=== PATIENT | female | born 1945 | race Caucasian/White ===

== ENCOUNTER 2016-08-10 21:55 | Emergency (ER) | payer OTHER, MEDICARE ==
[~2016-08-10] VITALS: Ht 154.9 cm; Wt 53.2 kg
[2016-08-10 22:05] VITALS: Ht 154.9 cm; Wt 53.2 kg
[2016-08-10] MEDS ORDERED: MoRPHine SULFATE 4 MG/ML 1 ML CARP\\VIAL IV STA (22:09)
[2016-08-10 22:14] VITALS: O2SAT 86
--- NOTE | 2016-08-10 22:40 | DIAGNOSTIC IMAGING REPORT ---
CHEST ONE VIEW PORTABLE CLINICAL HISTORY: Chest pain. Fever. Sepsis. COMPARISON STUDY: No previous studies for comparison. FINDINGS: A thoracolumbar spine fusion is partially imaged. Lung volumes are normal. There is no consolidation or evidence of pulmonary edema. Cardiomediastinal silhouette is unremarkable. No pneumothorax or pleural effusion is identified. IMPRESSION: No acute cardiopulmonary findings. Electronically signed by: Nitish Singleton M.D. 08/10/2016 10:39 PM Dictated Date/Time: 08/10/2016 10:38 PM
[2016-08-10 22:45] LABS: BASO % 0.4 %; BASO ABS # 0.03 K/uL (0-0.2); COMPLETE YES; EOS % 1.5 %; HEMATOCRIT 46.7 % (37-47); IG% 0.3 %; LYMPH % 16.7 %; LYMPH ABS # 1.26 K/uL (1.2-3.4); MEAN CELL VOLUME 93.8 fL (80-100); MEAN CORPUSCULAR HEMOGLOBIN 32.3 pg (25-34); MEAN CORPUSCULAR HGB CONC 34.5 g/dl (32-36); MEAN PLATELET VOLUME 11.4 fL (7.4-10.4); MONO % 6.5 %; NEUT % 74.6 %; PLATELET COUNT 219 K/uL (130-400); RED BLOOD COUNT 4.98 M/uL (4.2-5.4); WHITE BLOOD COUNT 7.53 K/uL (4.8-10.8)
[2016-08-10 22:55] LABS: INR 0.9 (0.9-1.1); PARTIAL THROMBOPLASTIN RATIO 1.1
[2016-08-10 23:08] LABS: ALT/SGPT 11 U/L (12-78); AST/SGOT 9 U/L (15-37); BLOOD UREA NITROGEN 16 mg/dl (7-18); CALCIUM 9.7 mg/dl (8.5-10.1); CARBON DIOXIDE 33 mmol/L (21-32); CHLORIDE 108 mmol/L (98-107); CREATININE 0.73 mg/dl (0.60-1.20); GLUCOSE 92 mg/dl (70-99); POTASSIUM 3.2 mmol/L (3.5-5.1); SODIUM 149 mmol/L (136-145)
[2016-08-10 23:13] LABS: ALKALINE PHOSPHATASE 68 U/L (45-117); CKMB/CK RATIO 2.1 (0-3.0)
[2016-08-10] MEDS ORDERED: LACT10SO17 PO (23:39)
[2016-08-10] MEDS ORDERED: GABA-113 PO ×2 (23:41)
[2016-08-10] MEDS ORDERED: TRAM-10 PO (23:41)
--- NOTE | 2016-08-11 01:10 | EMERGENCY ROOM VISIT NOTE ---
History Report prepared by Dawit: Param Oliva Under the Supervision of: Dr. Joseph Orourke D.O. First contact with patient: 22:04 Chief Complaint: CHEST PAIN Stated Complaint: CHEST PAIN History of Present Illness The patient is a 70 year old female who presents to the Emergency Room by EMS with complaints of an episode of chest pain beginning about 2 hours ago. She received 2 nitroglycerin, 324 mg of Aspirin, and Zofran en route, and rates her pain a 5/10 in severity. She notes she was lying down and resting when her pain began. She also noticed shortness of breath and increased heart rate. The patient took her blood pressure and it was 146/120 which is high for her. She has been having intermittent pains like this for 1.5 weeks. She reports a history of mitral valve prolapse, and back pain. She takes Tramadol and Gabapentin for her back pain. The patient denies using supplemental oxygen. She admits to smoking. Source of History: patient, nursing staff Onset: about 2 hours ago Position: chest Symptom Intensity: 5/10 Quality: other (chest pain) Timing: other (episode) Associated Symptoms: + SOB Note: The patient notes having an increased heart rate. Review of Systems See HPI for pertinent positives & negatives. A total of 10 systems reviewed and were otherwise negative. Past Medical & Surgical Medical Problems: (1) History of back pain (2) History of mitral valve prolapse Family History No pertinent family history stated. Social History Smoking Status: Current Some Day Smoker Marital Status: Current/Historical Medications Scheduled Gabapentin (Neurontin), 300 MG PO TIDM Gabapentin (Neurontin), 600 MG PO HS Tramadol (Ultram), 50 MG PO QID Scheduled PRN Lactulose (Chronulac), 1 DOSE PO UD PRN for Constipation Allergies Coded Allergies: No Known Allergies (Unverified , 08/10/16) Physical Exam Vital Signs Date Time Temp Pulse Resp B/P Pulse Ox O2 Delivery O2 Flow Rate FiO2 08/11/16 00:50 83 14 95 08/11/16 00:46 148/79 08/11/16 00:45 81 92 08/11/16 00:35 81 14 97 08/11/16 00:30 80 17 138/81 08/11/16 00:25 80 12 99 08/11/16 00:20 81 12 98 08/11/16 00:15 81 14 98 4/4/17 00:10 80 15 98 08/11/16 00:05 81 13 98 08/11/16 00:00 82 18 141/80 08/10/16 23:55 80 14 98 08/10/16 23:50 85 17 98 08/10/16 23:45 84 14 98 08/10/16 23:40 85 14 98 08/10/16 23:35 85 13 98 08/10/16 23:30 83 13 138/83 08/10/16 23:25 86 13 98 08/10/16 23:20 87 20 98 08/10/16 23:15 83 15 98 08/10/16 23:10 86 15 98 08/10/16 23:05 86 16 159/86 98 08/10/16 23:05 85 12 98 08/10/16 23:02 159/86 08/10/16 23:00 84 13 159/86 98 08/10/16 22:55 85 12 98 08/10/16 22:50 86 15 98 08/10/16 22:45 86 31 97 08/10/16 22:40 91 16 96 08/10/16 22:35 93 21 97 08/10/16 22:30 92 19 149/92 96 08/10/16 22:25 92 27 97 08/10/16 22:20 88 18 97 08/10/16 22:17 36.9 08/10/16 22:15 101 21 87 08/10/16 22:14 86 Room Air 08/10/16 22:10 93 20 91 08/10/16 22:09 90 Room Air 08/10/16 22:08 97 08/10/16 22:05 98 18 153/91 90 Room Air 08/10/16 22:05 90 Room Air 08/10/16 22:04 153/91 Physical Exam CONSTITUTIONAL/VITAL SIGNS: Reviewed / noted above. GENERAL: Non-toxic in appearance. INTEGUMENTARY: Warm, dry, and [place]. HEAD: Normocephalic. EYES: without scleral icterus or trauma. ENT/OROPHARYNX: clear and moist. LYMPHADENOPATHY/NECK: Is supple without lymphadenopathy or meningismus. RESPIRATORY: Lungs clear and equal. CARDIOVASCULAR: Regular rate and rhythm. GI/ABDOMEN: Soft and nontender. No organomegaly or pulsatile mass. No rebound or guarding. Normal bowel sounds. EXTREMITIES: Warm and well perfused. BACK: No CVA tenderness. NEUROLOGICAL: Intact without focal deficits. PSYCHIATRIC: normal affect. MUSCULOSKELETAL: Normally developed with good muscle tone. Medical Decision & Procedures ER Provider Diagnostic Interpretation: Radiology results as stated below per my review and radiologist interpretation: CHEST ONE VIEW PORTABLE FINDINGS: A thoracolumbar spine fusion is partially imaged. Lung volumes are normal. There is no consolidation or evidence of pulmonary edema. Cardiomediastinal silhouette is unremarkable. No pneumothorax or pleural effusion is identified. IMPRESSION: No acute cardiopulmonary findings. Electronically signed by: Nitish Singleton M.D. 08/10/2016 10:39 PM Dictated Date/Time: 08/10/2016 10:38 PM Laboratory Results 08/10/16 21:38 Red Blood Count 4.98, Mean Corpuscular Volume 93.8, Mean Corpuscular Hemoglobin 32.3, Mean Corpuscular Hemoglobin Concent 34.5, Mean Platelet Volume 11.4, Neutrophils (%) (Auto) 74.6, Lymphocytes (%) (Auto) 16.7, Monocytes (%) (Auto) 6.5, Eosinophils (%) (Auto) 1.5, Basophils (%) (Auto) 0.4, Neutrophils # (Auto) 5.62, Lymphocytes # (Auto) 1.26, Monocytes # (Auto) 0.49, Eosinophils # (Auto) 0.11, Basophils # (Auto) 0.03 08/10/16 21:38 Test 08/10/16 21:38 White Blood Count 7.53 K/uL (4.8-10.8) Red Blood Count 4.98 M/uL (4.2-5.4) Hemoglobin 16.1 g/dL (12.0-16.0) Hematocrit 46.7 % (37-47) Mean Corpuscular Volume 93.8 fL (80-100) Mean Corpuscular Hemoglobin 32.3 pg (25-34) Mean Corpuscular Hemoglobin Concent 34.5 g/dl (32-36) Platelet Count 219 K/uL (130-400) Mean Platelet Volume 11.4 fL (7.4-10.4) Neutrophils (%) (Auto) 74.6 % Lymphocytes (%) (Auto) 16.7 % Monocytes (%) (Auto) 6.5 % Eosinophils (%) (Auto) 1.5 % Basophils (%) (Auto) 0.4 % Neutrophils # (Auto) 5.62 K/uL (1.4-6.5) Lymphocytes # (Auto) 1.26 K/uL (1.2-3.4) Monocytes # (Auto) 0.49 K/uL (0.11-0.59) Eosinophils # (Auto) 0.11 K/uL (0-0.5) Basophils # (Auto) 0.03 K/uL (0-0.2) RDW Standard Deviation 48.0 fL (36.4-46.3) RDW Coefficient of Variation 14.0 % (11.5-14.5) Immature Granulocyte % (Auto) 0.3 % Immature Granulocyte # (Auto) 0.02 K/uL (0.00-0.02) Prothrombin Time 10.0 SECONDS (9.0-12.0) Prothromb Time International Ratio 0.9 (0.9-1.1) Activated Partial Thromboplast Time 28.0 SECONDS (21.0-31.0) Partial Thromboplastin Ratio 1.1 Anion Gap 8.0 mmol/L (3-11) Est Creatinine Clear Calc Drug Dose 53.3 ml/min Estimated GFR () 96.0 Estimated GFR (Non- 82.9 BUN/Creatinine Ratio 22.0 (10-20) Calcium Level 9.7 mg/dl (8.5-10.1) Total Bilirubin 0.2 mg/dl (0.2-1) Direct Bilirubin < 0.1 mg/dl (0-0.2) Aspartate Amino Transf (AST/SGOT) 9 U/L (15-37) Alanine Aminotransferase (ALT/SGPT) 11 U/L (12-78) Alkaline Phosphatase 68 U/L (45-117) Total Creatine Kinase 28 U/L (26-192) Creatine Kinase MB 0.6 ng/ml (0.5-3.6) Creatine Kinase MB Ratio 2.1 (0-3.0) Troponin I < 0.015 ng/ml (0-0.045) Total Protein 6.6 gm/dl (6.4-8.2) Albumin 3.6 gm/dl (3.4-5.0) Lipase 76 U/L (73-393) Laboratory results as stated above per my review. Medications Administered Medications (Trade) Dose Ordered Sig/Renetta Route Start Time Stop Time Status Last Admin Dose Admin Morphine Sulfate (MoRPHine SULFATE INJ) 4 mg NOW STAT IV 08/10/16 22:09 08/10/16 22:10 DC 08/10/16 22:27 4 MG ECG Indication: chest pain Rate (beats per minute): 94 Rhythm: normal sinus Findings: no acute ischemic change, no ectopy ED Course 2204: Previous medical records were reviewed. The patient was evaluated in room A4B. A complete history and physical examination was performed. 2208: Ordered Morphine Sulfate 4 mg IV. 104: On reevaluation, the patient is doing well. I discussed the results and findings with the patient. She verbalized agreement of the treatment plan. The patient was discharged home. Medical Decision the differential was considered includes acute myocardial infarction, acute coronary syndrome, myocarditis, pericarditis, pericardial effusions /tamponad, esophageal perforation, thoracic aortic dissection, pulmonary embolism, pneumonia, pneumothorax, pancreatitis, shingles, acute cholecystitis, perforated abdominal viscus. This is a 70-year-old female who presents to the ED with a chief complaint of chest pain. The patient states that she was resting and began feeling her heart pounding. She states that her symptoms started around 8 PM. She states that she checked her blood pressure was elevated. It was 146/120. He feels the symptoms she came to the ED for evaluation. She was not having symptoms on the initial evaluation. During her stay, she did develop a recurrence of the symptoms and had a repeat EKG. Her initial EKG shows sinus rhythm at a rate of 76 without acute injury or ectopy. A second EKG did not show any change. CBC was normal. Complete metabolic panel was unremarkable. A troponin is negative. Chest x-ray is negative for acute disease. The patient was told results the test. She feels comfortable going home. She was treated with IV morphine. She was advised to return for any recurrence or worsening symptoms. She is otherwise follow-up with her PCP. Impression Primary Impression: Substernal precordial chest pain Scribe Attestation The scribe's documentation has been prepared under my direction and personally reviewed by me in its entirety. I confirm that the note above accurately reflects all work, treatment, procedures, and medical decision making performed by me. Departure Information Dispostion Home / Self-Care Referrals No Doctor, Assigned (PCP) Patient Instructions Chest Pain - [facility], [facility], Later [facility] Additional Instructions Follow-up with your doctor for further care and evaluation in 1-2 days. Return to the emergency department for worsening or new symptoms or any concerns. You have been examined and treated today on an emergency basis only. This is not a substitute for, or an effort to provide, complete comprehensive medical care. It is impossible to recognize and treat all injuries or illnesses in a single emergency department visit. It is therefore important that you follow up closely with your doctor. Call as soon as possible for an appointment. Testing today has no productive value. Should you have any recurrence or worsening of symptoms, return for further evaluation.
[2016-08-11 01:13] VITALS: BP 148/79; PULSE 83; TEMP 36.9; O2SAT 95
== END 2016-08-11 01:15 | disposition home or self-care (01) ==
LOC: C.EDA 21:58
DX: R07.2 Precordial pain (principal); I34.1 Nonrheumatic mitral (valve) prolapse; F17.210 Nicotine dependence, cigarettes, uncomplicated; Z79.899 Other long term (current) drug therapy

== ENCOUNTER 2020-03-19 11:20 | Observation (INO) ==
--- NOTE | 2020-03-15 11:55 | History & Physical Report ---
Date of Service March 15, 2020 Assessment & Plan (1) H/O spinal fusion: (2) Chronic radicular lumbar pain: (3) Postlaminectomy syndrome of lumbosacral region: (4) Postlaminectomy syndrome of thoracic region: (5) Encounter for pre-operative examination: Patient has failed conservative treatments so an intrathecal hydromorphone trial was performed. Patient did report significant pain relief for the first 24 hours after the trial. She was able to walk longer distances and stand for longer periods of time. As the patient did receive adequate pain relief from the trial she has been offered the implantation of an intrathecal pump and catheter delivery system. Patient would like to proceed with implantation. Procedure will be scheduled for 03/19/2020. History of Present Illness Chief Complaint: Intractable back pain Primary Care Provider: Casey Rodgers Mrs. Campos is a 74-year-old female with history of chronic intractable thoracolumbar back pain and right lower extremity weakness and pain. Patient has had multiple thoracolumbar surgeries, most recently revision of T4-S1 posterior spinal fusion for correction of scoliosis in 1996. Pain is predominantly located in the thoracolumbar junction right greater than left- sided as well as right L5 radicular symptoms into the right leg to the foot. Pain is ranging from 5-10/10. 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 Sitting in a recliner and laying supine does provide mild pain relief. Patient does report significant limitation to performing her daily activities due to the pain. She has previously failed conservative treatments. Currently she is receiving hydrocodone 10/325 4 times daily with very little pain relief. She denies any bowel/bladder incontinence, saddle anesthesia, foot drop, falls. Allergies Allergy/AdvReac Type Severity Reaction Status Date / Time hydrochlorothiazide Allergy Intermediate pancreatiti Verified 03/15/20 10:31 s fluconazole [From Diflucan] AdvReac Severe PO only Verified 03/15/20 10:31 gave diarrhea ondansetron [From Zofran] AdvReac Intermediate headaches Verified 03/15/20 10:31 Home Medications Home Medications Medication Instructions Recorded Confirmed Type evdzrga-hpxprzloktwph-jcnzndxl 250 1 tab PO Q6H PRN 01/10/20 03/15/20 History mg-250 mg-65 mg tablet rfohuzlhoh-stzcqionrvcpp-wfugxjzy 1 tab PO Q6H PRN 01/10/20 03/15/20 History 50 mg-325 mg-40 mg tablet calcium carbonate 600 mg calcium 600 mg PO QAM 01/10/20 03/15/20 History (1,500 mg) tablet famotidine 20 mg tablet 20 mg PO QAM PRN 01/10/20 03/15/20 History gabapentin 600 mg tablet 600 mg PO QID tab 01/10/20 03/15/20 History hydrocodone 10 mg-acetaminophen 1 tab PO Q6H PRN 01/10/20 03/15/20 History 300 mg tablet meclizine 25 mg tablet 25 mg PO DAILY PRN 01/10/20 03/15/20 History promethazine 25 mg tablet 25 mg PO Q6H PRN 01/10/20 03/15/20 History multivitamin 1 tab PO DAILY 02/05/20 03/15/20 History galcanezumab-gnlm 120 mg/mL 120 mg SUBCUT UD 03/13/20 03/15/20 History subcutaneous pen injector naratriptan 1 mg tablet 1 mg PO Q4H PRN 03/13/20 03/15/20 History pantoprazole [Protonix] 40 mg PO BID 03/15/20 03/15/20 History Past Med/Surg History Medical History Chronic radicular lumbar pain Gastric ulcer GERD (gastroesophageal reflux disease) Hiatal hernia History of blood transfusion Pt reports post-op after hip surgery and lumbar surgery History of syncope Previously followed with cardiology, per Dr Lockhart ([facility]), "syncope in the setting of polypharmacy for severe low back pain." Last seen by cardio 11/2018, to follow up PRN. Migraine Pancreatitis ~August 2017 Postlaminectomy syndrome of lumbosacral region Postlaminectomy syndrome of thoracic region Surgical History H/O spinal fusion Extensive [id number] (x2 lumbar fusions) History of anesthesia reaction "severe hypotension" per patient following second back surgery. ([facility] 2017). Review of records shows documentation from anesthesia that hypotension was treated in PACU, BP in post-anesthetic evaluation 92/51. History of appendectomy History of cardiac cath ~1994. no stents. History of cataract surgery bilateral History of cholecystectomy History of colonoscopy History of dilatation and curettage History of esophagogastroduodenoscopy (EGD) History of open reduction and internal fixation (ORIF) procedure left hip x2 S/P hardware removal left hip x2 S/P CECILIA-BSO Family History Other No family history of adverse response to anesthesia Social History Smoking Status: Current every day smoker packs per day: 0.5; Years Smoked: 60; Cigarettes Per Day: 10; Second Hand Exposure: Yes; Do You Dip or Chew Tobacco: No; Tobacco Cessation Education Requested by Patient: No Hx Alcohol Use: No Hx Substance Use: No Preferred Language: Maori Communication Ability: Effective Visual Impairment: No Limitations Hearing Ability: Normal 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 Speech and cognition is intact. Mood and affect is appropriate. In no acute distress. HEAD: Normocephalic; atraumatic. EYES: No conjunctival injection. EOM intact. CARDIO: Regular rate and rhythm. No murmurs, rubs, or gallops. PULM: Clear to auscultation. No wheezes, rales, or rhonchi. CHEST: Regular chest respiration and excursion. ABDOMEN: Nondistended. EXTREMITIES: Positive straight leg raise on the right, negative on the left. 4/5 strength of the right lower extremity. 5/5 strength of the left lower extremity. BACK: Large well-healed surgical incision from the mid thoracic to the lumbosacral junction. Tenderness along the entire thoracolumbar region. Minimal range of motion in all planes. NEURO: CN II-XII grossly intact with no focal deficits noted. Normal gait. Patellar Reflex L +1 R +1 Achilles Reflex L +1 R +1 SKIN: No lesions, erythema, or rashes noted.
--- NOTE | 2020-03-15 12:02 | Anesthesiology Consultation ---
Date of Service March 15, 2020 Assessment & Plan (1) Encounter for pre-operative examination: Chart Review Chart Review: Acceptable Risk for Surgery and Patient NOT seen in Pre Admission Testing Per nursing assessment 03/15/2020, patient denies any recent travel. No known Covid positive contacts or Covid related symptoms. Covid test 03/13/2020 = negative. Intrathecal opiate trial for intrathecal pump 02/20/2020. History Surgery Operation Date: 03/19/20 13:20 Proposed Procedures p Intrathecal Pain Pump - Wilbertl Lima MD, FIPP Height/Weight Height: 5 ft 1 in Weight: 46.72 kg Allergies Allergy/AdvReac Type Severity Reaction Status Date / Time hydrochlorothiazide Allergy Intermediate pancreatiti Verified 03/15/20 10:31 s fluconazole [From Diflucan] AdvReac Severe PO only Verified 03/15/20 10:31 gave diarrhea ondansetron [From Zofran] AdvReac Intermediate headaches Verified 03/15/20 10:31 Medications Home Medications Medication Instructions Recorded Confirmed Last Taken qauppxe-ixynwfgfaesaz-bpotundj 250 1 tab PO Q6H PRN 01/10/20 03/15/20 Unknown mg-250 mg-65 mg tablet wnoullebbh-wmimvfeateazu-xdzjzvab 1 tab PO Q6H PRN 01/10/20 03/15/20 02/06/20 50 mg-325 mg-40 mg tablet calcium carbonate 600 mg calcium 600 mg PO QAM 01/10/20 03/15/20 02/19/20 08:00 (1,500 mg) tablet famotidine 20 mg tablet 20 mg PO QAM PRN 01/10/20 03/15/20 02/19/20 08:00 gabapentin 600 mg tablet 600 mg PO QID tab 01/10/20 03/15/20 02/19/20 18:00 hydrocodone 10 mg-acetaminophen 1 tab PO Q6H PRN 01/10/20 03/15/20 02/19/20 17:00 300 mg tablet meclizine 25 mg tablet 25 mg PO DAILY PRN 01/10/20 03/15/20 Unknown promethazine 25 mg tablet 25 mg PO Q6H PRN 01/10/20 03/15/20 Unknown multivitamin 1 tab PO DAILY 02/05/20 03/15/20 02/19/20 08:00 galcanezumab-gnlm 120 mg/mL 120 mg SUBCUT UD 03/13/20 03/15/20 Unknown subcutaneous pen injector naratriptan 1 mg tablet 1 mg PO Q4H PRN 03/13/20 03/15/20 Unknown pantoprazole [Protonix] 40 mg PO BID 03/15/20 03/15/20 Unknown Past Medical History Medical History Chronic radicular lumbar pain Gastric ulcer GERD (gastroesophageal reflux disease) Hiatal hernia History of blood transfusion Pt reports post-op after hip surgery and lumbar surgery History of syncope Previously followed with cardiology, per Dr Lockhart ([facility]), "syncope in the setting of polypharmacy for severe low back pain." Last seen by cardio 11/2018, to follow up PRN. Migraine Pancreatitis ~August 2017 Postlaminectomy syndrome of lumbosacral region Postlaminectomy syndrome of thoracic region Past Family History Family History Other No family history of adverse response to anesthesia Past Surgical History Surgical History H/O spinal fusion Extensive [id number]-[id number] (x2 lumbar fusions) History of anesthesia reaction "severe hypotension" per patient following second back surgery. ([facility] 2017). Review of records shows documentation from anesthesia that hypotension was treated in PACU, BP in post-anesthetic evaluation 92/51. History of appendectomy History of cardiac cath ~1994. no stents. History of cataract surgery bilateral History of cholecystectomy History of colonoscopy History of dilatation and curettage History of esophagogastroduodenoscopy (EGD) History of open reduction and internal fixation (ORIF) procedure left hip x2 S/P hardware removal left hip x2 S/P CECILIA-BSO Social History Smoking Status: Current every day smoker tobacco type: cigarettes Smoking cigarettes per day: 10 Do You Dip or Chew Tobacco: No Hx Alcohol Use: No Hx Substance Use: No substance use type: marijuana Last Used Substance Other:: 02/04/20 Testing Laboratory Results Laboratory Tests 02/07/20 02/07/20 11:10 11:10 WBC 7.96 Hgb 13.9 Hct 42.7 Plt Count 197 Sodium 144 Potassium 3.2 L Chloride 112 H Carbon Dioxide 28 BUN 27 H Creatinine 0.62 Glucose 81 Electrocardiogram Date: 02/07/20 Findings: + SB @ (55bpm) Otherwise normal EKG. Chest X-Ray Date: 08/31/19 Findings: + NAD Post fusion changes of mid to upper visualized lumbar spine. Anterior wedge compression deformity of mid thoracic vertebral body just above the fusion. Echocardiogram Date: 03/20/16 EF: 55-60% LV Function: normal RWMA: + none Other Findings: + LVH (mild concentric) and + diastolic dysfunction (grade 1) Valvular Disease: + MR (mild) Mild TR. Stress Test Date: 10/04/14 Type: DSE Resting EF: 55-59% Resting LV Function: normal Resting RWMA: + none Stress echo was negative for inducible ischemia. Stress EKG response showed no evidence of ischemia. Mild MR. Mild TR. No evidence of pulmonary hypertension.
[~2020-03-19 11:20] MED LIST: LR 15ML/HR IV SCH; ceFAZolin 2000MG 2,000 MG/15 ML SYR IV SCH
--- NOTE | 2020-03-19 12:01 | History & Physical Bridge Note ---
Date of Service March 19, 2020 History & Physical Bridge Note History & Physical Bridge Note Mrs. Campos is a 74-year-old white female who presents for evaluation of chronic thoracolumbar back pain and right lower extremity pain with weakness. Patient has history of multiple thoracolumbar spine surgeries most recently undergoing a revision with a T4-S1 posterior spinal fusion with correction of scoliosis per Dr. Krause at [facility] in [place] [address]. She underwent reevaluation in 2018- timeframe without recommendation for any further surgical intervention. The patient has had ongoing chronic thoracolumbar back pain right greater left-sided as her predominant pain generator followed by pain in the right lower extremity traveling in an L5 distribution to the foot. She rates her pain at a 3-10/10. Her pain is burning, sharp and stabbing in the axial thoracolumbar spine. Symptoms are exacerbated with prolonged standing, bending over and household activities. Her symptoms are somewhat improved by lying supine in her bed or in her recliner. She spends majority of her days in these positions due to her pain and discomfort. Patient has previously been treated with physical therapy, acupuncture, SI joint injections, epidural steroid injections, massage therapy, prior surgery, duloxetine, gabapentin, opiates and spinal cord stimulator trial. She reported increased pain during her spinal cord stimulator trial and therefore implantation was not recommended. She did undergo psychological evaluation and was under the care of psychiatry for 6 months after the spinal cord stimulator trial. She is planning to resume behavioral health due to some increased depressive symptoms over the past few months. Patient indicates minimal benefit from ongoing use of hydrocodone/acetaminophen 4 times daily. She denies side effects from prior opiate utilization other than intermittent constipation. The patient describe some chronic weakness of the right lower extremity but denies foot drop or falling. She denies bowel or bladder incontinence or saddle anesthesias. She denies left lower extremity radicular pain. She has previously utilized medical marijuana with minimal improvement in complaints. She underwent intrathecal hydromorphone trail successfully with good efficacy and is requesting to proceed implantation of intrathecal drug movement system to address her chronic pain from postlaminectomy syndrome. RECOMMENDATIONS: Proceed with intrathecal medication delivery system. History reviewed, examination performed, pertinent laboratory and imaging studies reviewed. No contraindications noted to proceeding with the proposed procedure. Potential risks including infection, bleeding, hematoma or seroma formation at the wound sites, nerve injury, injury to the spinal cord, dural puncture with persistant csf leak, malfunction of the pump, breakage and migration of the catheter, additional surgical procedures to correct these complications as well as persistent symptoms after the procedure and risks associated with anesthesia. Patient was also informed that the pump will require routine refills on an ongoing basis. Alternative treatments were also discussed. Patient's questions were answered and gives informed consent to proceed with the proposed procedure. In addition, the risks and benefits of proposed procedure, possibly risks of being exposed to COVID-19 during current pandemic were discussed. The patient understands that self-isolation/quarantining for the next 2 weeks is preferred to minimize exposure to COVID-19. However, if unable to self-isolate, it is recommend the patient wear a mask, maintain 6 feet distancing, performs frequent hand washing and follow CDC recommendations when out in public. The patient accepts the risks and agrees to proceed. I have examined the patient, reviewed the History & Physical and in the interval since the performance of the History & Physical I have noted the following changes of clinical significance: no changes noted
[2020-03-19] MEDS ORDERED: ceFAZolin 1000MG 1,000 MG/7.5 ML SYR IV ONE (12:39)
--- NOTE | 2020-03-19 12:44 | History & Physical Bridge Note ---
Date of Service March 19, 2020 History & Physical Bridge Note I have examined the patient, reviewed the History & Physical and in the interval since the performance of the History & Physical I have noted the following changes of clinical significance: no changes noted pt accepts all r/b associated with implantation including infection possibily leading to need for explant. Consent signed
[2020-03-19] MEDS ORDERED: BUPIVACAINE 0.5 % 5 MG/1 ML PF 10ML VIAL ONE (12:47)
[2020-03-19] MEDS ORDERED: PHENYLEPHRINE 100MCG/ML 5ML SYR IV PRN (13:10)
[2020-03-19] MEDS ORDERED: ePHEDrine sulfate 50 MG/ML AMP IV PRN (13:10)
[2020-03-19] MEDS ORDERED: ATROPINE SULFATE 0.1 MG/ML 10ML SYR IV PRN (13:10)
[2020-03-19] MEDS ORDERED: ONDANSETRON INJ 2 MG/ML 2 ML VIAL IV PRN (13:10)
[2020-03-19] MEDS ORDERED: LABETALOL HCL IV 5 MG/ML 20ML IV PRN (13:10)
[2020-03-19] MEDS ORDERED: MEPERIDINE HCL 25 MG/ML CARP/VIAL IV PRN (13:10)
[2020-03-19] MEDS ORDERED: HYDROmorphone INJ 1 MG/ML SYRINGE IV PRN (13:10)
[2020-03-19] MEDS ORDERED: LIDOCAINE/EPINE 2% 1:100,000 20ML ONE (13:14)
[2020-03-19] MEDS ORDERED: IOPAMIDOL INJ 61% 15 ML VIAL ONE (13:14)
[2020-03-19] MEDS ORDERED: fentaNYL citrate 100 MCG/2 ML VIAL ONE ×2 (13:18→13:23)
[2020-03-19] MEDS ORDERED: MIDAZOLAM HCL 1 MG/ML 2ML VIAL ONE (13:23)
[2020-03-19] MEDS ORDERED: DEXAMETHASONE SOD INJ 4 MG/ML VIAL ONE (13:23)
[2020-03-19] MEDS ORDERED: ONDANSETRON INJ 2 MG/ML 2 ML VIAL ONE (13:23)
[2020-03-19] MEDS ORDERED: PROPOFOL IV EMULSION 10 MG/ML 20 ML VIAL IV ONE (13:23)
[2020-03-19] MEDS ORDERED: LIDOCAINE HCL 2% 2 ML VIAL/AMP(20MG/ML) INFIL ONE (13:23)
[2020-03-19] MEDS ORDERED: NEOSTIGMINE METHYLSULFATE 5 MG/5 ML SYR ONE (13:23)
[2020-03-19] MEDS ORDERED: GLYCOPYRROLATE 0.2 MG/ML VIAL ONE (13:23)
[2020-03-19] MEDS ORDERED: SUCCINYLCHOLINE CHLORIDE 20 MG/ML 10 ML VIAL IV ONE (14:06)
[2020-03-19] MEDS ORDERED: diphenhydrAMINE Capsule 25 MG CAP PO PRN (15:38)
[2020-03-19] MEDS ORDERED: NALOXONE HCL 0.4 MG/1 ML VIAL/CARP IV PRN (15:38)
[2020-03-19] MEDS ORDERED: MAGNESIUM CITRATE 296 ML/BTL PO PRN (15:38)
[2020-03-19] MEDS ORDERED: HYDROCODONE/ACETAMOPHEN 5/325MG TAB PO PRN (15:38)
--- NOTE | 2020-03-19 15:38 | Operative Report ---
Post Operative Report Pre & Post Diagnosis Operation Date: 03/19/20 13:20 Pre-Op Diagnosis: Postlaminectomy syndrome of lumbosacral region,Postlaminectomy syndrome of thoracic region Post-Op Diagnosis: Postlaminectomy syndrome of lumbosacral region,Postlaminectomy syndrome of thoracic region I identified the patient and participated in the time-out.: Yes Procedure Operation Date: 03/19/20 13:20 Actual Procedures Implantation of intrathecal catheter and drug delivery system. Wilber Lima MD, JAMES Surgeon Wilber Lima MD, JAMES Raised Printer Dr. Delmy Suazo Estimated Blood Loss 35 Findings Consistent with Post-Op Diagnosis Specimens None Drains None Anesthesia Type General Disposition Accompanied Patient To Recovery: No Disposition: Recovery Room Description of Procedure INTRATHECAL DRUG DELIVERY SYSTEM IMPLANTATION OPERATIVE REPORT PREOPERATIVE DIAGNOSIS: Intractable pain secondary to lumbar post laminectomy syndrome. POSTOPERATIVE DIAGNOSIS: Same. PROCEDURE: 1. Insertion of intrathecal catheter under fluoroscopic guidance. 2. Implantation of intrathecal pump. 3. Intrathecal pump refill. 4. Postoperative reprogramming of intrathecal drug delivery system pump. INDICATIONS: COMPLICATIONS: None ANESTHESIA: General. DESCRIPTION OF PROCEDURE: The patient had a successful intrathecal trial and agreed to intrathecal pump insertion. Prior to starting, the Patients diagnosis and the procedure were reviewed with the patient in detail. Possible risks and complications including infection, bleeding, damage to surrounding structures and increased pain were discussed. Alternative therapies were also reviewed. Patients questions were answered and they agreed to proceed. Informed consent was obtained. Allergies and medication list was reviewed. Biplanar fluoroscopy was used to assist in placement of the needle as well as to evaluate the final needle and catheter positions. The patient was brought to the operating room and general anesthesia was induced by members of the department. Patient was then placed in right lateral decubitus position. Immediately prior to starting the procedure, a ``time out was conducted with the staff where the patient was identified, proposed procedure was verified, consent was reviewed and the proper site for the planned procedure was identified. Preoperative antibiotics for prophylaxis were given through the IV. On examination, no signs of skin breakdown or infection were noted at the injection site. The site was cleansed with DuraPrep followed by Betadine. Sterile drapes were applied in the usual fashion. Using biplanar fluoroscopy an 18-gauge spinal needle was used to gain access to the intrathecal sac at L2/L3 interspace. Clear free cerebral spinal fluid flow was noted without any blood. Medtronic intrathecal catheter was passed through the needle under fluoroscopic guidance and the tip was positioned at superior edge of T9 vertebral body. Stylet was removed and free CSF flow was aspirated. Using a scalpel, 1-1/2 inch midline incision was made surrounding the intrathecal needle. Hemostasis was achieved using electro cautery. The epidural catheter was secured to the dorso-lumbar fascia with 2 purse string 0-0 silk ties. Then the spinal needle was removed and a [employer] butterfly anchor to secure the catheter to the underlying supraspinous ligament was utilized to secure the catheter. Free CSF flow from the intrathecal catheter after anchoring of the catheter to the fascia. Then in the left lower quadrant a pocket for the intrathecal pump was made using scalpel to skin incision and electro cautery for the deeper layers. A passer was used to transfer the intrathecal pump catheter underneath the skin and subcutaneous tissues through to the pocket incision. After transfer of the end of the catheter to the pocket incision aspiration of the intrathecal catheter revealed free CSF flow. Both pocket and midline axial thoracic incisions were irrigated with 3 bulb syringes full of sterile normal saline with Betadine. Hemostasis was achieved. The intrathecal pump was filled was rinsed and filled with hydromorphone 1 mg/mL concentration per protocol. The intrathecal catheter was trimmed to a total length of 102 cm. The suture-less connector was connected to the end the intrathecal pump and aspiration from of the end of the catheter was free-flowing. It was then connected to the intrathecal pump using the connecting device. The intrathecal pump was anchored in the pocket with 4-0 Prolene sutures. No complications were noted after the intrathecal pump was placed inside the pocket. Both wounds were irrigated with bacitracin-containing normal saline. Both wounds were closed in similar fashion using continuous 0 antibiotic coated stra tafix suture for deeper layer and running 3-0 antibiotic-coated stratafix suture for subcuticular layer. Prineo was applied to the skin. 4 x 4 gauze and pressure dressing was applied to both sites. Abdominal binder was placed. No complications were noted throughout the procedure. The patient tolerated the procedure and general anesthesia without obvious complications.. Patient was allowed to emerge from anesthesia at the end of the procedure and transferred back to the stretcher. Patient was transported to the recovery room in stable condition. The patient will follow up with our clinic within 7 days for a wound check and then plan to have the arianna removed at day 14. Pump size inserted: 20 ml model 8637.20 Level of catheter: Superior edge of T9 Catheter: 878 Ascenda with total implanted length of 120 cm Medication placed in pump: Hydromorphone 1 mg/ml. Daily dose of 0.07 mg/day. Priming bolus of 0.36/mL over 22 minutes. I attest to the content of the Intraoperative Record and any orders documented therein. Any exceptions are noted below.
[2020-03-19] MEDS ORDERED: NO NARCOTICS OR SEDATIVES SCH (15:45)
--- NOTE | 2020-03-19 16:21 | Anesthesiology Progress Note ---
Date of Service March 19, 2020 Anesthesia Post Procedure Vital Signs Vital Signs: Temp Pulse Pulse Resp BP Pulse Ox 03/19/20 16:10 66 16 156/73 H 100 03/19/20 16:00 76 15 166/80 H 100 03/19/20 15:51 36 C L 80 16 174/76 H 100 03/19/20 12:00 36.7 C 58 L 18 150/77 H 95 Pain Intensity Back: Pain Intensity: 2 Transfer of Care Handoff Completed per policy Notes Mental Status: alert / awake / arousable Patient Amnestic to Procedure: Yes Nausea / Vomiting: adequately controlled Pain: adequately controlled Airway Patency, RR, SpO2: stable & adequate BP & HR: stable & adequate Hydration State: stable & adequate Anesthetic Complications: no major complications apparent and Pt Satisfied with anesthetic care
[2020-03-19] MEDS: fentaNYL citrate 100 MCG/2 ML VIAL IV PRN ×2 (17:15→18:04)
[2020-03-19] MEDS ORDERED: MECLIZINE HCL 25MG HOME PACK PO PRN (18:28)
[2020-03-19] MEDS ORDERED: BUTALBITAL/ACETAMIN/CAFFEINE TAB PO PRN (18:28)
[2020-03-19] MEDS ORDERED: NON-FORMULARY MEDICATION (Aspirin-Acetaminophen-Caffeine [Excedrin Extra Strength] 250-250 PO PRN (18:28)
[2020-03-19] MEDS ORDERED: HYDROCODONE ACETAMINOPHEN PO PRN (18:28)
[2020-03-19] MEDS ORDERED: PROMETHAZINE HCL 25 MG TAB PO PRN (18:28)
[2020-03-19] MEDS ORDERED: FAMOTIDINE 20 MG TAB PO PRN (18:28)
--- NOTE | 2020-03-19 19:37 | Hospitalist Consultation ---
Date of Consultation March 19, 2020 Assessment & Plan (1) History of back pain: Pain management per primary Currently monitored on med tele Will check post op labs am (2) GERD (gastroesophageal reflux disease): Continue ppi (3) Chronic radicular lumbar pain: Resume gabapentin when ok with primary Supervising Physician Co-Signing Physician Notes Patient seen and examined with Jasmina TUCKER. I agree with her exam findings, review of systems, assessment and plan. I personally reviewed the lab work and imaging as well. patient tolerated procedure of getting pain pump, no complications limited medical history will check labs in the AM - CHRONIC BACK PAIN: treated with intrathecal pain pump - GERD: continue PPI check labs in AM, likely home on 03/20 History of Present Illness Attending Physician: Wilber Lima MD, [facility] History of Present Illness Ms. Campos is post intrathecal catheter placement for back pain. 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 Allergies Allergy/AdvReac Type Severity Reaction Status Date / Time hydrochlorothiazide Allergy Intermediate pancreatiti Verified 03/19/20 11:56 s chlorhexidine Allergy Mild Rash Verified 03/19/20 12:57 fluconazole [From Diflucan] AdvReac Severe PO only Verified 03/19/20 11:56 gave diarrhea ondansetron [From Zofran] AdvReac Intermediate headaches Verified 03/19/20 11:56 Home Medications Home Medications Medication Instructions Recorded Confirmed Type vvvlszl-vaemnfukejcip-mqeviapz 250 1 tab PO Q6H PRN 01/10/20 03/19/20 History mg-250 mg-65 mg tablet tzsgexjrlr-zasvnddlsnvby-spsmtzre 1 tab PO Q6H PRN 01/10/20 03/19/20 History 50 mg-325 mg-40 mg tablet calcium carbonate 600 mg calcium 600 mg PO QAM 01/10/20 03/19/20 History (1,500 mg) tablet famotidine 20 mg tablet 20 mg PO QAM PRN 01/10/20 03/19/20 History gabapentin 600 mg tablet 600 mg PO QID tab 01/10/20 03/19/20 History hydrocodone 10 mg-acetaminophen 1 tab PO Q6H PRN 01/10/20 03/19/20 History 300 mg tablet meclizine 25 mg tablet 25 mg PO DAILY PRN 01/10/20 03/19/20 History promethazine 25 mg tablet 25 mg PO Q6H PRN 01/10/20 03/19/20 History multivitamin 1 tab PO DAILY 02/05/20 03/19/20 History galcanezumab-gnlm 120 mg/mL 120 mg SUBCUT UD 03/13/20 03/19/20 History subcutaneous pen injector naratriptan 1 mg tablet 1 mg PO Q4H PRN 03/13/20 03/19/20 History pantoprazole [Protonix] 40 mg PO BID 03/15/20 03/19/20 History potassium chloride 20 meq PO DAILY #7 tab 03/20/20 Rx Patient History Medical History Chronic radicular lumbar pain Gastric ulcer GERD (gastroesophageal reflux disease) Hiatal hernia History of blood transfusion Pt reports post-op after hip surgery and lumbar surgery History of syncope Previously followed with cardiology, per Dr Lockhart ([facility]), "syncope in the setting of polypharmacy for severe low back pain." Last seen by cardio 11/2018, to follow up PRN. Migraine Pancreatitis ~August 2017 Postlaminectomy syndrome of lumbosacral region Postlaminectomy syndrome of thoracic region Surgical History H/O spinal fusion Extensive [id number] (x2 lumbar fusions) History of anesthesia reaction "severe hypotension" per patient following second back surgery. ([facility] 2017). Review of records shows documentation from anesthesia that hypotensi on was treated in PACU, BP in post-anesthetic evaluation 92/51. History of appendectomy History of cardiac cath ~1994. no stents. History of cataract surgery bilateral History of cholecystectomy History of colonoscopy History of dilatation and curettage History of esophagogastroduodenoscopy (EGD) History of open reduction and internal fixation (ORIF) procedure left hip x2 S/P hardware removal left hip x2 S/P CECILIA-BSO Family History Other No family history of adverse response to anesthesia Social History Smoking Status: Current every day smoker packs per day: 0.5; Years Smoked: 60; Cigarettes Per Day: 10; Second Hand Exposure: Yes; Do You Dip or Chew Tobacco: No; Tobacco Cessation Education Requested by Patient: No Hx Alcohol Use: No Hx Substance Use: No Preferred Language: Arabic Communication Ability: Effective Visual Impairment: No Limitations Hearing Ability: Normal Hand Iii Cutter Required: No Beliefs That Will Affect Care: None marital status: Current Living Situation: Spouse current occupational status: retired Feels Safe at Home: Yes Safety Concerns: Feels Safe At This Time Assistive Devices: Oxygen - Continuous Review of Systems Constitutional: no fever, no chills and no body aches Respiratory: no cough and no dyspnea Cardiovascular: no chest pain and no palpitations Gastrointestinal: no abdominal pain and no vomiting Genitourinary: no dysuria and no urinary hesitancy Musculoskeletal: no back pain and no joint pain Integumentary: no rash Neurologic: + falls (recent fall about a week ago resulting in bruising around the eyes) Physical Exam Physical Exam: General: no distress Eyes: normal inspection, PERLL Respiratory: chest non tender, clear to auscultation, normal breath sounds, no respiratory distress, no accessory muscle use Cardiac: regular rate and rhythm, no rub or gallop, no murmur, no edema, no jvd GI/: active bowel sounds, no abd pain or tenderness, soft, non distended Extremities: normal range of motion, normal strength, non tender Neuro/Psych: alert and oriented x 3, normal mood and affect Skin: normal color, dry Results & Data Results & Data ([place]) Vital Signs (Past 12 Hours) Vital Signs Temp Pulse Pulse Resp BP Pulse Ox 03/19/20 18:34 36.6 C 65 16 125/73 94 03/19/20 18:05 75 20 144/74 H 98 03/19/20 17:50 85 22 148/80 H 98 03/19/20 17:35 87 21 148/80 H 99 03/19/20 17:20 80 19 125/89 99 03/19/20 17:05 80 20 143/74 H 100 03/19/20 16:50 72 16 160/77 H 100 03/19/20 16:35 36.3 C L 63 20 148/73 H 100 03/19/20 16:20 86 14 151/77 H 100 03/19/20 16:10 66 16 156/73 H 100 03/19/20 16:00 76 15 166/80 H 100 03/19/20 15:51 36 C L 80 16 174/76 H 100 03/19/20 12:00 36.7 C 58 L 18 150/77 H 95 PG Care Time/CCT Total # of Minutes Spent Total Time Spent with Patient: Total time spent is greater than 50% in coordination of care (as documented) at patient's floor/unit and/or counseling patient: Coding Level of Care Code 37838 Inpt Consult Level 3 Diagnoses History of back pain Z87.39 GERD (gastroesophageal reflux disease) K21.9 Chronic radicular lumbar pain M54.16; G89.29
[2020-03-19] MEDS: DOCUSATE SODIUM 100 MG CAP PO SCH (20:35)
[2020-03-19] MEDS: PANTOprazole 40 MG TAB PO SCH (20:35)
[2020-03-19] MEDS: ACETAMINOPHEN 500 MG TAB PO PRN (20:35)
[2020-03-19] MEDS ORDERED: GABAPENTIN 600 MG TAB PO SCH (21:00)
[2020-03-20] MEDS: ACETAMINOPHEN 500 MG TAB PO PRN (05:00)
[2020-03-20 06:44] LABS: Hematocrit (blood only) 43.6 % (37-47); Hemoglobin 14.5 g/dL (12.0-16.0); Mean Corpuscular Hgb Conc 33.3 g/dL (32-36); Mean Corpuscular Volume 99.1 fL (80-100); Mean Platelet Volume 11.4 fL (7.4-10.4); Platelet Count 171 K/uL (130-400); RDW Coefficient of Variation 13.6 % (11.5-14.5)
[2020-03-20 06:54] LABS: BUN Creatinine Ratio 28.2 (10-20); Calcium 9.2 mg/dl (8.5-10.1); Creatinine Clr Calc Pharmacy 53.1 ml/min; Est GFR (African American) 100.2; Est GFR (Non-African American) 86.4; Potassium 2.9 mmol/L (3.5-5.1)
[2020-03-20] MEDS ORDERED: POTASSIUM CHLORIDE CRTAB 20 MEQ TABCR PO STA (08:09)
[2020-03-20] MEDS: DOCUSATE SODIUM 100 MG CAP PO SCH (08:33)
[2020-03-20] MEDS: PANTOprazole 40 MG TAB PO SCH (08:34)
[2020-03-20] MEDS ORDERED: PANTOprazole 40 MG TAB PO SCH (09:00)
[2020-03-20] MEDS ORDERED: CALCIUM CARBONATE 1250MG TAB PO SCH (09:00)
[2020-03-20] MEDS ORDERED: MULTIVITAMIN TAB PO SCH (09:00)
--- NOTE | 2020-03-20 09:48 | Pain Management Progress Note ---
Date of Service March 20, 2020 Assessment & Plan (1) H/O spinal fusion: Present on Admission?: Yes (2) Chronic radicular lumbar pain: Present on Admission?: Yes (3) Postlaminectomy syndrome of lumbosacral region: Present on Admission?: Yes (4) Postlaminectomy syndrome of thoracic region: 1. Dressings were changed at today's visit. She will continue with daily dressing change. We discussed the importance of abdominal binder utilization 24 hours/day. 2. Intrathecal dose was increased at today's visit. Her current dose will be hydromorphone 0.099 mg/day. Refer to pump printout for details in EMR. We discussed expectations regarding adequate pain control mitigated by small dosage adjustments due to her side effects during the hydromorphone trial and she did verbalize understanding. 3. Patient may continue with [place] for as needed breakthrough pain upon this admission. She may continue for as needed breakthrough pain upon discharge with her previously prescribed home medication of hydrocodone/acetaminophen, but diminish utilization was encouraged due to use of intrathecal hydromorphone. We did discuss potential side effects of concomitant dilatation of intrathecal and oral opiate therapy and she verbalized understanding. Prescription for Narcan will be sent electronically. 4. Patient will follow up in pain clinic in 1 week for wound check and further intrathecal dose adjustment Present on Admission?: Yes Admission and Anticipated Discharge Date Admission Date: March 19, 2020 Anticipated date of discharge: 03/20/20 Subjective Mrs. Campos is a 74-year white female who is postoperative day 1 status post implantation of intrathecal pump and catheter delivery system providing the patient with hydromorphone total daily dose 0.07 mg/day. Patient has history of chronic intractable mid and low back pain secondary to thoracic and lumbar postlaminectomy syndromes. Patient had previously failed all conservative management with chronic ongoing intractable pain contributing to poor quality of life. Patient is reporting no evidence of nausea or vomiting since the time of implantation. She did experience some vomiting approximately 6-7 hours after a prior hydromorphone trial but no preceding nausea and no prior history of hydromorphone allergy. She reports that her back pain is currently 5 and 6/10. She did utilize oral hydrocodone earlier this morning due to pain which she was rating at a 9/10. She is uncertain as to any potential benefit of the intrathecal pump at this time. She denies any incisional site pain. The lindsey ent has no further side effect complaints since the time of implantation. She has no further constitutional complaints at this time. Plan of care discussed with Dr. Navarro. Pain Assessment Pain Assessment Full Body Front + Back: 1. Thoracolumbar spine Pain scale - at its best (0-10): 5 Pain scale - at its worst (0-10): 9 Physical Exam Physical Exam: General: Patient was lying quietly upon entering the room in no acute distress. Speech and thought process appropriate. Mood and affect appropriate. Cognition intact. Head: Patient has area of ecchymosis in the forehead and extending into the infraorbital region due to an injury prior to admission. Abdomen: Pump site in the left lower quadrant. Dressing was removed for visual inspection. Prineo remain intact. Wound is well approximated. Nontender to palpation. No evidence of erythema, edema or discharge. Back/spine: To the left of midline incision at the thoracolumbar junction was visualized after removal of dressing. Dressing was dry. Incisional site was well approximated with evidence of edema, erythema or skin breakdown. Prineo intact. Lower extremities: Sensation intact without deficit. Strength testing 5/5. No evidence of edema. Neurologically: Cranial nerves grossly intact and ambulation not witnessed.
--- NOTE | 2020-03-20 09:50 | Discharge Summary ---
Date of Service March 20, 2020 Admission HPI Per Admitting Provider Mrs. Campos is a 74-year-old female with history of chronic intractable thoracolumbar back pain and right lower extremity weakness and pain. Patient has had multiple thoracolumbar surgeries, most recently revision of T4-S1 posterior spinal fusion for correction of scoliosis in 1996. Pain is predominantly located in the thoracolumbar junction right greater than left- sided as well as right L5 radicular symptoms into the right leg to the foot. Pain is ranging from 5-10/10. 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 Sitting in a recliner and laying supine does provide mild pain relief. Patient does report significant limitation to performing her daily activities due to the pain. She has previously failed conservative treatments. Currently she is receiving hydrocodone 10/325 4 times daily with very little pain relief. She denies any bowel/bladder incontinence, saddle anesthesia, foot drop, falls. Discharge Data Consultations 03/19/20 15:43 Consult Hospitalist Routine Procedures Performed Operation Date: 03/19/20 13:20 Actual Procedures p Intrathecal Pain Pump(Left) - Wilber Lima MD, [facility] Hospital Course (1) H/O spinal fusion: (2) Chronic radicular lumbar pain: (3) Postlaminectomy syndrome of lumbosacral region: (4) Postlaminectomy syndrome of thoracic region: 1. Dressings were changed at today's visit. She will continue with daily dressing change. We discussed the importance of abdominal binder utilization 24 hours/day. 2. Intrathecal dose was increased at today's visit. Her current dose will be hydromorphone 0.099 mg/day. Refer to pump printout for details in EMR. We discussed expectations regarding adequate pain control mitigated by small dosage adjustments due to her side effects during the hydromorphone trial and she did verbalize understanding. 3. Patient may continue with [place] for as needed breakthrough pain upon this admission. She may continue for as needed breakthrough pain upon discharge with her previously prescribed home medication of hydrocodone/acetaminophen, but diminish utilization was encouraged due to use of intrathecal hydromorphone. We did discuss potential side effects of concomitant dilatation of intrathecal and oral opiate therapy and she verbalized understanding. Prescription for Narcan will be sent electronically. 4. Patient will follow up in pain clinic in 1 week for wound check and further intrathecal dose adjustment Discharge Instructions 1. Daily dressing changes recommended 2. Continue with abdominal binder use 30/11 3. Patient may utilize her oral opiate therapy for pain breakthrough pain but encourage diminish use. We did discuss drug drug interaction with concomitant opiate utilization intrathecally and orally. Narcan prescription will be provided upon discharge. 4. Patient may shower in 3 days 5. Limited activity and lifting not more than 5 pounds was recommended.
[2020-03-20] MEDS ORDERED: POTASSIUM CHLORIDE CRTAB 20 MEQ TABCR PO ONE (12:00)
== END 2020-03-20 10:08 | disposition home or self-care (01) ==
LOC: ASU 11:20 → 2N 11:20

== ENCOUNTER 2022-06-28 11:22 | Inpatient (IN) ==
--- NOTE | 2022-06-28 11:48 | Emergency Department Note ---
Impression & Plan Chest pain, Abnormal EKG ED Provider Note NAME: REGGIE POWERS AGE: 76 SEX: F : 1945 ARRIVES VIA: Walk-In INFORMANT: Patient, ED PROVIDER(S): Darnell Baugh DO CHIEF COMPLAINT:: Chest pain HPI: The patient is a 76-year-old female who presented to the emergency department for an evaluation of chest pain. The patient has a history of atrial fibrillation. She has not had a cardiac catheterization in many years. The patient states that she has been compliant with her outpatient medications. She states that she knows when she goes into atrial fibrillation and this does not feel like her atrial fibrillation. Today at approximately 9:00 AM she started noticing chest pain. She describes it as left-sided chest pain that radiates to her left arm. She does complain of some shortness of breath. She denies having any back pain. She does have chronic back pain from multiple surgeries. 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 She had some changes to her calcium channel jitendra as a thought this might be causing her symptoms. She denies having any vomiting. She denies h aving any belly pain. She had no recent trauma. She took 4 baby aspirin prior to coming to the emergency department with her son. ROS: See above HPI for pertinent positives & negatives. A total of 10 systems reviewed and were otherwise negative. PAST MEDICAL HISTORY: See Below PAST SURGICAL HISTORY: See Below FAMILY HISTORY: See Below SOCIAL HISTORY: See Below HOME MEDICATIONS: See Below ALLERGIES: See Below VITALS: See Below PHYSICAL EXAMINATION: GENERAL: The patient is awake and alert. She is somewhat anxious appearing. EYES: The conjunctivae are clear. The pupils are round and reactive. EARS, NOSE, MOUTH AND THROAT: The nose is without any evidence of any deformity. NECK: The neck is nontender and supple. RESPIRATORY: Normal respiratory effort is noted there is no evidence of wheezing rhonchi or rales CARDIOVASCULAR: Regular rate and rhythm noted there no murmurs rubs or gallops normal S1 normal S2. GASTROINTESTINAL: The abdomen is soft. Abdomen is nontender. MUSCULOSKELETAL/EXTREMITIES: There is no evidence of gross deformity full range of motion is noted in the hips and shoulders. SKIN: Pedal edema was noted bilaterally. NEUROLOGIC: Patient is awake alert and oriented x3 MEDICAL DECISION MAKING: The patient is a 76-year-old female who presented to the emergency department for an evaluation of chest pain. The patient does have a history of cardiac dysrhythmia. She does have some EKG abnormalities albeit not necessarily consistent with ischemia but T wave flattening. The patient had pain that began acutely. She gave herself 4 baby aspirin prior to arrival. She was treated with pain medication in the emergency department. I discussed the patient's laboratory and radiographic studies with her. I discussed the limitations of the emergency department work-up for chest pain with her. Ultimately given her comorbidities as well as her findings today I do feel the patient may be a better candidate for inpatient management. For this reason I [facility] Triage Nursing notes reviewed. Prior medical records reviewed Vital Signs: reviewed and remarkable for bradycardia. Differential diagnosis: Cardiac ischemia, aortic dissection, pulmonary embolism, pneumothorax, pneumonia, pericarditis, myocarditis, esophageal rupture, GERD, cholecystitis, pancreatitis, musculoskeletal, as well as other pathologies. ER treatment provided: See below Diagnostics interpreted by me: ECG: EKG was obtained in the emergency department. My interpretation is normal sinus rhythm at 66 bpm. General T wave flattening was noted. There was no ectopy. This was compared to a tracing from February 07, 2020. The T wave abnormalities are new however no significant changes were noted otherwise. Cardiac Monitoring: An order was placed for continuous cardiac monitoring. The monitor shows a rate of 59 bpm with sinus bradycardia Laboratory studies: As stated above and show below. Imaging studies: See below. Radiographic imaging was reviewed by myself Consultation(s): I discussed this case with him who [facility]. Past Med/Surg History Medical History Depression Fracture, tibia, with fibula Gastric ulcer Gastritis "Getting under control" GERD (gastroesophageal reflux disease) Hiatal hernia History of blood transfusion Pt reports post-op after hip surgery and lumbar surgery History of syncope Previously followed with cardiology, per Dr Lockhart ([facility]), "syncope in the setting of polypharmacy for severe low back pain." Last seen by cardio 11/2018, to follow up PRN per cardio. Migraine MVP (mitral valve prolapse) Not noted on 03/2016 echo (Mild MR was present) Pancreatitis Approximately 2018 Postlaminectomy syndrome of lumbosacral region Postlaminectomy syndrome of thoracic region Recurrent UTI Surgical History H/O spinal fusion Extensive [id number] (x2 lumbar fusions) History of anesthesia reaction "severe hypotension" per patient following second back surgery. ([facility] 2017). Review of records shows documentation from anesthesia that hypotension was treated in PACU, BP in post-anesthetic evaluation 92/51. Subsequent intrathecal pain pump (03/19/20): Grade view 1, MAC#3, ETT 6.5 at [facility] without issue noted per post-op anesthesia progress note/discharge summary. History of appendectomy History of cardiac cath Approximately 1994 > no stents History of cataract surgery R/L History of cholecystectomy History of colonoscopy History of dilatation and curettage History of esophagogastroduodenoscopy (EGD) History of hip surgery Right hip History of open reduction and internal fixation (ORIF) procedure Left hip S/P hardware removal Left hip x2 S/P CECILIA-BSO Family History Mother Family history of diabetes mellitus Grandmother (Maternal) Family history of diabetes mellitus Grandmother (Paternal) Family history of diabetes mellitus Other No family history of adverse response to anesthesia Social History Smoking Status: Current every day smoker Tobacco Type: Cigarettes packs per day: 0.5; Cigarettes Per Day: 10 cigs/day; Second Hand Exposure: No; Hx Alcohol Use: No Hx Substance Use: No Preferred Language: Ivorian Communication Ability: Effective Visual Impairment: No Limitations Hearing Ability: Normal 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 Required: No Beliefs That Will Affect Care: Muslim Muslim Beliefs: [employer] marital status: Current Living Situation: Spouse current occupational status: retired Feels Safe at Home: Yes Assistive Devices: Denture - Upper, Glasses and Walker Allergies Allergies Allergy/AdvReac Type Severity Reaction Status Date / Time chlorhexidine Allergy Mild Rash Verified 06/28/22 13:27 fluconazole [From Diflucan] AdvReac Severe Diarrhea Verified 06/28/22 13:27 (with oral) hydrochlorothiazide AdvReac Intermediate Pancreatiti Verified 06/28/22 13:27 s ondansetron [From Zofran] AdvReac Intermediate Headaches Verified 06/28/22 13:27 Home Meds Home Medications Medication Instructions Recorded Confirmed [id number] 250 1 tab PO Q6H PRN migraines 01/10/20 06/28/22 mg-250 mg-65 mg tablet (Excedrin Extra Strength) calcium carbonate 600 mg calcium 600 mg PO QAM 01/10/20 06/28/22 (1,500 mg) tablet (Calcium) multivitamin 1 tab PO QAM 02/05/20 06/28/22 furosemide 40 mg tablet (Lasix) 40 mg PO QAM 12/19/20 06/28/22 metoclopramide HCl 5 mg tablet 5 mg PO ACHS 01/20/22 06/28/22 omeprazole 20 mg tablet,delayed 20 mg PO QPM 01/20/22 06/28/22 release rizatriptan 10 mg tablet 10 mg PO UD PRN Migraine Headache 01/20/22 06/28/22 trazodone 100 mg tablet 100 mg PO HS 01/20/22 06/28/22 apixaban 5 mg tablet (Eliquis) 5 mg PO BID 04/22/22 06/28/22 diltiazem HCl 120 mg 120 mg PO DAILY 04/22/22 06/28/22 capsule,extended release 24 hr hydrocodone 10 mg-acetaminophen 1 tab PO Q4H PRN Pain 04/22/22 06/28/22 325 mg tablet promethazine 12.5 mg tablet 12.5 mg PO Q6H PRN Nausea 06/08/22 06/28/22 Previous Rx's Medication Instructions Recorded naloxone 4 mg/actuation nasal spray 1 spray intranasal Q3M PRN opioid 06/12/21 overdose #2 ea Results & Data (ED) Vital Signs Vital Signs - 24 hr 06/28/22 11:26 06/28/22 11:36 06/28/22 12:32 Temperature 36.4 C L Temperature Source Temporal Artery Scan Pulse Rate 68 61 Pulse Rate from SpO2 Sensor Respiratory Rate 20 Blood Pressure 149/76 H Blood Pressure Mean 100 Pulse Oximetry 94 93 Oxygen Delivery Method Room Air Room Air Sepsis Recent Fever Within 48 Hours No Sepsis New/Unexplained Change in Mental Status N/A Sepsis Action Taken by Nursing No Action Required 06/28/22 11:47 06/28/22 12:00 06/28/22 12:30 Temperature Temperature Source Pulse Rate 68 78 Pulse Rate from SpO2 Sensor 67 77 Respiratory Rate 17 18 Blood Pressure 136/69 Blood Pressure Mean 91 Pulse Oximetry 93 92 Oxygen Delivery Method Sepsis Recent Fever Within 48 Hours Sepsis New/Unexplained Change in Mental Status Sepsis Action Taken by Nursing 06/28/22 12:30 06/28/22 13:00 06/28/22 13:00 Temperature Temperature Source Pulse Rate 59 L 51 L Pulse Rate from SpO2 Sensor 59 L 50 L Respiratory Rate 16 21 Blood Pressure 111/56 L Blood Pressure Mean 74 Pulse Oximetry 93 92 Oxygen Delivery Method Sepsis Recent Fever Within 48 Hours Sepsis New/Unexplained Change in Mental Status Sepsis Action Taken by Nursing 06/28/22 13:30 06/28/22 13:30 Temperature Temperature Source Pulse Rate 59 L Pulse Rate from SpO2 Sensor Respiratory Rate 16 Blood Pressure 124/74 Blood Pressure Mean 90 Pulse Oximetry Oxygen Delivery Method Sepsis Recent Fever Within 48 Hours Sepsis New/Unexplained Change in Mental Status Sepsis Action Taken by [place] Medications Current Medication List: was personally reviewed by me Laboratory Data Attestation: I reviewed the patient's lab results. 06/28/22 12:00 06/28/22 12:00 Lab Results 06/28/22 06/28/22 06/28/22 Range/Units 12:00 12:00 12:00 WBC 7.89 (4.8-10.8) K/ul RBC 4.29 (4.20-5.40) M/uL Hgb 14.4 (12.0-16.0) g/dl Hct 43.9 (37.0-47.0) % MCV 102.3 H (80.0-100.0) fL MCH 33.6 (25.0-34.0) pg MCHC 32.8 (32.0-36.0) g/dL RDW Std Deviation 50.0 H (36.4-46.3) fL RDW Coeff of Oliver 13.2 (11.5-14.5) % Plt Count 210 (130-400) K/uL MPV 10.6 (9.4-12.4) fL Immature Gran % (Auto) 0.5 % Neut % (Auto) 77.7 % Lymph % (Auto) 13.4 % [place] % (Auto) 6.3 % Eos % (Auto) 1.3 % Baso % (Auto) 0.8 % Neut # (Auto) 6.13 (1.40-6.50) K/uL Lymph # (Auto) 1.06 L (1.2-3.4) K/uL [place] # (Auto) 0.50 (0.11-0.59) K/uL Eos # (Auto) 0.10 (0-0.50) K/uL Baso # (Auto) 0.06 (0-0.2) K/uL Immature Gran # (Auto) 0.04 (0.01-0.20) K/uL PT 11.4 (9.0-12.0) Seconds INR 1.1 (0.9-1.1) APTT 41.6 H (21.0-31.0) Seconds PTT Ratio 1.5 Sodium 139 (136-145) mmol/L Potassium 4.5 (3.5-5.1) mmol/L Chloride 104 (98-107) mmol/L Carbon Dioxide 29 (21-32) mmol/L Anion Gap 6 (3-11) BUN 14 (6-23) mg/dl Creatinine 0.64 (0.6-1.2) mg/dl Est Cr Clr Drug Dosing 55.5 ml/min Est GFR ( Amer) 99.8 ml/min Est GFR (Non-Af Amer) 86.1 ml/min BUN/Creatinine Ratio 21.9 H (10-20) Glucose 97 (70-99(Fasting)) mg/dl Calcium 8.9 (8.5-10.1) mg/dl Total Bilirubin 0.6 (0.2-1.0) mg/dl AST 13 (13-39) U/L ALT 5 L (7-52) U/L Alkaline Phosphatase 99 (34-104) U/L Troponin I High Sens 3.6 (0-14) pg/ml Total Protein 6.5 (6.0-8.3) gm/dl Albumin 4.1 (3.4-5.0) gm/dl Globulin 2.4 L (2.5-4.0) gm/dl Albumin/Globulin Ratio 1.7 (0.9-2) Lipase 5 L (11-82) U/L SARS-CoV-2, RNA, NAAT (NEGATIVE) 06/28/22 Range/Units 12:00 WBC (4.8-10.8) K/ul RBC (4.20-5.40) M/uL Hgb (12.0-16.0) g/dl Hct (37.0-47.0) % MCV (80.0-100.0) fL MCH (25.0-34.0) pg MCHC (32.0-36.0) g/dL RDW Std Deviation (36.4-46.3) fL RDW Coeff of Oliver (11.5-14.5) % Plt Count (130-400) K/uL MPV (9.4-12.4) fL Immature Gran % (Auto) % Neut % (Auto) % Lymph % (Auto) % [place] % (Auto) % Eos % (Auto) % Baso % (Auto) % Neut # (Auto) (1.40-6.50) K/uL Lymph # (Auto) (1.2-3.4) K/uL [place] # (Auto) (0.11-0.59) K/uL Eos # (Auto) (0-0.50) K/uL Baso # (Auto) (0-0.2) K/uL Immature Gran # (Auto) (0.01-0.20) K/uL PT (9.0-12.0) Seconds INR (0.9-1.1) APTT (21.0-31.0) Seconds PTT Ratio Sodium (136-145) mmol/L Potassium (3.5-5.1) mmol/L Chloride (98-107) mmol/L Carbon Dioxide (21-32) mmol/L Anion Gap (3-11) BUN (6-23) mg/dl Creatinine (0.6-1.2) mg/dl Est Cr Clr Drug Dosing ml/min Est GFR ( Amer) ml/min Est GFR (Non-Af Amer) ml/min BUN/Creatinine Ratio (10-20) Glucose (70-99(Fasting)) mg/dl Calcium (8.5-10.1) mg/dl Total Bilirubin (0.2-1.0) mg/dl AST (13-39) U/L ALT (7-52) U/L Alkaline Phosphatase (34-104) U/L Troponin I High Sens (0-14) pg/ml Total Protein (6.0-8.3) gm/dl Albumin (3.4-5.0) gm/dl Globulin (2.5-4.0) gm/dl Albumin/Globulin Ratio (0.9-2) Lipase (11-82) U/L SARS-CoV-2, RNA, NAAT NEGATIVE (NEGATIVE) Administered Medications Discontinued Medications Hydrocodone Bitart/Acetaminophen (Hydrocodone/Acetamophen 5/325mg Tab) 2 tab PO ONE ONE Stop: 06/28/22 13:21 Last Admin: 06/28/22 13:26 Dose: 2 tab Documented By: CECILIA Imaging Data Radiologist's Impression: Chest X-Ray 06/28/22 11:36 SINGLE VIEW CHEST CLINICAL HISTORY: Atypical chest pain. FINDINGS: An AP, portable, upright chest radiograph is compared to study dated 03/26/2020. The examination is degraded by portable technique and patient rotation. The heart is enlarged noting atherosclerotic calcification of the thoracic aorta. The pulmonary vasculature is noncongested. Chronic interstitial thickening similar to previous. Scarring/atelectasis is noted at the lung bases. No airspace consolidation or large pleural effusion is identified. No pneum othorax is seen. The bony thorax is grossly intact. Postsurgical changes noted in the spine with thoracolumbar spinal rods in place. There are chronic/healed right-sided rib fractures. Arthritic change is noted in the shoulders. IMPRESSION: Cardiomegaly with no acute cardiopulmonary abnormality. ACT 112: Negative or not required by law. Electronically signed by: Elver Herrera M.D. 06/28/2022 12:05 PM Discharge Plan Visit Data Chief Complaint: Arrhythmia/Palpitations Stated Complaint: AFIB ED Provider: Darnell Baugh Discharge Problem: Chest pain, Abnormal EKG Patient Disposition: Admitted As Inpatient Discharge Instructions Interventions: ED Discharge Assessment Last Done: 06/28/22 15:34 Chest pain Qualifiers: Chest pain type: unspecified Qualified Code(s): R07.9 - Chest pain, unspecified
--- NOTE | 2022-06-28 12:06 | XRay Report ---
SINGLE VIEW CHEST CLINICAL HISTORY: Atypical chest pain. FINDINGS: An AP, portable, upright chest radiograph is compared to study dated 03/26/2020. The examin ation is degraded by portable technique and patient rotation. The heart is enlarged noting atheroscl erotic calcification of the thoracic aorta. The pulmonary vasculature is noncongested. Chronic inters titial thickening similar to previous. Scarring/atelectasis is noted at the lung bases. No airspace c onsolidation or large pleural effusion is identified. No pneumothorax is seen. The bony thorax is maycol ssly intact. Postsurgical changes noted in the spine with thoracolumbar spinal rods in place. There a re chronic/healed right-sided rib fractures. Arthritic change is noted in the shoulders. IMPRESSION: Cardiomegaly with no acute cardiopulmonary abnormality. ACT 112: Negative or not required by law. Electronically signed by: Elver Herrera M.D. 06/28/2022 12:05 PM
[2022-06-28 12:16] LABS: Basophils # (auto) 0.06 K/uL (0-0.2); Basophils % (auto) 0.8 %; Eosinophils % (auto) 1.3 %; Hematocrit (blood only) 43.9 % (37.0-47.0); Hemoglobin 14.4 g/dl (12.0-16.0); Immature Granulocytes # (auto) 0.04 K/uL (0.01-0.20); Immature Granulocytes % (auto) 0.5 %; Lymphocytes # (auto) 1.06 K/uL (1.2-3.4); Lymphocytes % (auto) 13.4 %; Mean Corpuscular Hemoglobin 33.6 pg (25.0-34.0); Mean Corpuscular Hgb Conc 32.8 g/dL (32.0-36.0); Mean Corpuscular Volume 102.3 fL (80.0-100.0); Mean Platelet Volume 10.6 fL (9.4-12.4); Monocytes % (auto) 6.3 %; Neutrophils # (auto) 6.13 K/uL (1.40-6.50); Neutrophils % (auto) 77.7 %; Platelet Count 210 K/uL (130-400); RDW Coefficient of Variation 13.2 % (11.5-14.5); Red Blood Count 4.29 M/uL (4.20-5.40); White Blood Count 7.89 K/ul (4.8-10.8)
[2022-06-28 12:30] LABS: Albumin Globulin Ratio 1.7 (0.9-2); Albumin Level 4.1 gm/dl (3.4-5.0); BUN Creatinine Ratio 21.9 (10-20); Bilirubin,Total 0.6 mg/dl (0.2-1.0); Calcium 8.9 mg/dl (8.5-10.1); Creatinine Clr Calc Pharmacy 55.5 ml/min; Est GFR (African American) 99.8 ml/min; Est GFR (Non-African American) 86.1 ml/min; Globulin 2.4 gm/dl (2.5-4.0); Potassium 4.5 mmol/L (3.5-5.1); Total Protein 6.5 gm/dl (6.0-8.3)
[2022-06-28 12:37] LABS: Troponin I High Sensitivity 3.6 pg/ml (0-14)
[2022-06-28 12:39] LABS: INR 1.1 (0.9-1.1); Partial Thromboplastin Ratio 1.5; Partial Thromboplastin Time 41.6 Seconds (21.0-31.0); Prothrombin Time 11.4 Seconds (9.0-12.0)
[2022-06-28] MEDS ORDERED: HYDROCODONE/ACETAMOPHEN 5/325MG TAB PO ONE (13:20)
[2022-06-28] MEDS ORDERED: ALUMINUM/MAGNESIUM SUSP 30 ML UDC PO PRN (14:14)
[2022-06-28] MEDS ORDERED: MAGNESIUM HYDROXIDE SUSP 30 ML UDC PO PRN (14:14)
[2022-06-28] MEDS ORDERED: POLYETHYLENE (MIRALAX) 17 GM PACK PO PRN (14:14)
[2022-06-28] MEDS ORDERED: ONDANSETRON INJ 2 MG/ML 2 ML VIAL IV PRN (14:14)
--- NOTE | 2022-06-28 14:55 | History & Physical Report ---
Date of Service June 28, 2022 Assessment & Plan (1) Chest pain: (2) Atrial fibrillation: (3) History of back pain: (4) H/O spinal fusion: Plan 76 y/o that presents with chest pain. H/O Afib. Initial troponin negative, will trend to R/O ACS. Pain management consult for chronic pain; pt has dilaudid pump.Cards consult. Chest Pain: 08/17 in ED; resolving. Anterior chest pain with left arm radiation -Initial Troponin negative x2 ( 3.7; 4.3 ) -EKG Flattened T-wave -Meléndez for accurate I/O -Recent ECHO 04/11/22: EF 55-59%, Mild MR/TR, LV wall thickening increase; will repeat while here. -Cards consult for continuation of care; see below -BNP 444 Atrial Fibrillation: -Chronic; on Eloquis; continue -rate controlled in ED. -Follows with Dr. Richy MILLER with Cardiology. --------Recent appointment: --------*dose adjustment Diltazem 180 mg --> 120 mg --------*Continue Lasix and added Aldactone --------*Discontinued Lisinopril d/t hypotension --------* was conversation regarding anti-arrythmic or ablation if symptoms continue History of Back pain: H/O spinal fusion: -Takes Trazadone and hydrocodone -Received [place] in ED for pain -[facility] that is refilled monthly -Narcotic agreement signed and on file previously -Recommend review of PDMP while admitted Disposition: PCP: Dr. Rodgers Code Status: Full Code VTE Prophyalxis: On Eloquis A total of 87 minutes was spent with greater than 50% of that time personally reviewing all current laboratory work and diagnostic imaging studies obtained in the ED. Additionally, I was able to review the patients past medication reconciliation and history with direct visualization in the patients chart. Included in the time above, a portion of that time was spent assessing the patient while discussing and collaborating with specialists, if necessary, and making medical decisions regarding orders to be placed. All of the aforementioned completed while collaborating with Dr. Malagon for a full treatment plan. Please see her addendum for further details. History of Present Illness Chief Complaint: chest pain Primary Care Provider: Casey Campos is a 76-year-old female that presented to the [facility] ED after she started to experience chest pain. Patient reports that her pain has been occurring since early this morning around 8:30 A M. She did take 4 baby aspirin prior to coming to the ED. She reports radiation into her left arm and upper shoulder blades along with shortness of breath. Patient has chronic pain issues from previous thoracic spine surgery in 2017. She did report flling 1 week ago after feeling dizzy, fell to her knees; denies hitting head or LOC. Patient has noted some lower extremity swelling for which she did follow-up with cardiology on 06/15 and after review of EMR chart; lisinopril was discontinued due to hypotension, diltiazem dose was adjusted from 180 mg to 120 mg daily. Additionally patient was to continue furosemide twice weekly but to take it consecutively for 3 days while adding spironolactone 12.5 mg 3 days/week. In ED, Troponin negative x2. No leukocytosis, BNP 440. Most recent ECHO 04/10/22: EF 55-59%, mild MR/TR with left ventricular wall thickening. Additional past medical history includes atrial fibrillation (On Eliquis), GERD and thoracic spine surgery. There is difficulty opening the pain management notes in [facility] however patient is noted to be followed by pain management through [facility] and has a Dilaudid pump that is refilled monthly from what I can tell in [facility]. Additionally patient takes trazodone and Hydrocodone every 6 as needed for pain. " a few different physicians". Patient reports that she has been recently admitted in [place] and follows with will recommend inpatient pain management consultation and review of PDMP there there is a narcotic contract signed on file. Noted syncope in her past related to polypharmacy. Received low dose D ilaudid in ED. Patient reports being an active smoker 1/2 PPD with no plans to quit smoking. Denies alcohol use, but does report medical marijuana use for pain. Patient will be admitted for further evaluation and management. Please see initial assessment for further details Allergies Allergy/AdvReac Type Severity Reaction Status Date / Time chlorhexidine Allergy Mild Rash Verified 06/28/22 13:27 fluconazole [From Diflucan] AdvReac Severe Diarrhea Verified 06/28/22 13:27 (with oral) hydrochlorothiazide AdvReac Intermediate Pancreatiti Verified 06/28/22 13:27 s ondansetron [From Zofran] AdvReac Intermediate Headaches Verified 06/28/22 13:27 Home Medications Medication Instructions Recorded Confirmed Type [id number] 250 1 tab PO Q6H PRN migraines 01/10/20 06/28/22 History mg-250 mg-65 mg tablet (Excedrin Extra Strength) calcium carbonate 600 mg calcium 600 mg PO QAM 01/10/20 06/28/22 History (1,500 mg) tablet (Calcium) multivitamin 1 tab PO QAM 02/05/20 06/28/22 History furosemide 40 mg tablet (Lasix) 40 mg PO QAM 12/19/20 06/28/22 History naloxone 4 mg/actuation nasal spray 1 spray intranasal Q3M PRN opioid 06/12/21 06/28/22 Rx overdose #2 ea metoclopramide HCl 5 mg tablet 5 mg PO ACHS 01/20/22 06/28/22 History omeprazole 20 mg tablet,delayed 20 mg PO QPM 01/20/22 06/28/22 History release rizatriptan 10 mg tablet 10 mg PO UD PRN Migraine Headache 01/20/22 06/28/22 History trazodone 100 mg tablet 100 mg PO HS 01/20/22 06/28/22 History apixaban 5 mg tablet (Eliquis) 5 mg PO BID 04/22/22 06/28/22 History diltiazem HCl 120 mg 120 mg PO DAILY 04/22/22 06/28/22 History capsule,extended release 24 hr hydrocodone 10 mg-acetaminophen 1 tab PO Q4H PRN Pain 04/22/22 06/28/22 History 325 mg tablet promethazine 12.5 mg tablet 12.5 mg PO Q6H PRN Nausea 06/08/22 06/28/22 History Past Med/Surg History Medical History (Updated 06/29/22 @ 11:03 by GARRETT Wilburn) Atrial fibrillation Depression Fracture, tibia, with fibula Gastric ulcer Gastritis "Getting under control" GERD (gastroesophageal reflux disease) Hiatal hernia History of blood transfusion Pt reports post-op after hip surgery and lumbar surgery History of syncope Previously followed with cardiology, per Dr Lockhart ([facility]), "syncope in the setting of polypharmacy for severe low back pain." Last seen by cardio 11/2018, to follow up PRN per cardio. Migraine MVP (mitral valve prolapse) Not noted on 03/2016 echo (Mild MR was present) Opiate dependence Pancreatitis Approximately 2017 Postlaminectomy syndrome of lumbosacral region Postlaminectomy syndrome of thoracic region Recurrent UTI Surgical History H/O spinal fusion Extensive [id number] (x2 lumbar fusions) History of anesthesia reaction "severe hypotension" per patient following second back surgery. ([facility] 2017). Review of records shows documentation from anesthesia that hypotension was treated in PACU, BP in post-anesthetic evaluation 92/51. Subsequent intrathecal pain pump (03/19/20): Grade view 1, MAC#3, ETT 6.5 at [facility] without issue noted per post-op anesthesia progress note/discharge summary. History of appendectomy History of cardiac cath Approximately 1994 > no stents History of cataract surgery R/L History of cholecystectomy History of colonoscopy History of dilatation and curettage History of esophagogastroduodenoscopy (EGD) History of hip surgery Right hip History of open reduction and internal fixation (ORIF) procedure Left hip S/P hardware removal Left hip x2 S/P CECILIA-BSO Family History Mother Family history of diabetes mellitus Grandmother (Maternal) Family history of diabetes mellitus Grandmother (Paternal) Family history of diabetes mellitus Other No family history of adverse response to anesthesia Social History Smoking Status: Current every day smoker Tobacco Type: Cigarettes packs per day: 0.5; Cigarettes Per Day: 8; Second Hand Exposure: Yes; Do You Dip or Chew Tobacco: No; Tobacco Cessation Education Requested by Patient: No Hx Alcohol Use: No Hx Substance Use: No Preferred Language: Chinese Communication Ability: Effective Visual Impairment: No Limitations Hearing Ability: Normal Marketing Specialist Required: No Beliefs That Will Affect Care: None marital status: Current Living Situation: Spouse current occupational status: retired Other Information That Helps Us Care for You: No Feels Safe at Home: Yes Safety Concerns: Feels Safe At This Time Assistive Devices: Walker Review of Systems Review of Systems: Neuro: (-) Falls, trauma, slurred speech HEENT: (-) TAYLOR, dizziness, dysphagia, visual or auditory changes CV: (-) CP, palpitations, swelling Resp: (-) SOB GI: (-) appetite changes, N/V/D, bowel changes : (-) urinary changes Skin: (-) rashes Psych: (-) anxiety, depression Physical Exam Physical Exam: Neuro: AAOx4, PERRLA, no aphagia, memory changes, CNII-XII grossly intact HEENT: head normocephalic, moist mucus membranes CV: S1/S2, (-) M/G/R, (-) edema, cap refill < 3 seconds Resp: Lungs CTA in all blum. On RA GI: Abdomen S/NT/ND, Ax4 bowel sounds, (-) CVA tenderness Musculoskeletal: 5/5 B/L UE strength, 5/5 B/L LE strength. No gait disturbance Skin: (-) rashes , (-) erythema. Psych: euthymic mood Results & Data Results & Data ([facility]) Vital Signs (Past 12 Hours) Vital Signs Temp Pulse Resp BP Pulse Ox O2 Del Method 06/28/22 13:30 59 L 16 06/28/22 13:30 124/74 06/28/22 13:00 51 L 21 92 06/28/22 13:00 111/56 L 06/28/22 12:30 59 L 16 93 06/28/22 12:30 136/69 06/28/22 12:00 78 18 92 06/28/22 11:47 68 17 93 06/28/22 12:32 61 06/28/22 11:36 93 Room Air 06/28/22 11:26 36.4 C L 68 20 149/76 H 94 Room Air Laboratory Results Short CBC 06/28/22 Range/Units 12:00 WBC 7.89 (4.8-10.8) K/ul Hgb 14.4 (12.0-16.0) g/dl Hct 43.9 (37.0-47.0) % Plt Count 210 (130-400) K/uL BMP 06/28/22 12:00 Sodium 139 Potassium 4.5 Chloride 104 Carbon Dioxide 29 BUN 14 Creatinine 0.64 Glucose 97 Calcium 8.9 Liver Function 06/28/22 Range/Units 12:00 Total Bilirubin 0.6 (0.2-1.0) mg/dl AST 13 (13-39) U/L ALT 5 L (7-52) U/L Alkaline Phosphatase 99 (34-104) U/L Albumin 4.1 (3.4-5.0) gm/dl Diagnostic Findings Chest X-Ray 06/28/22 11:36 SINGLE VIEW CHEST CLINICAL HISTORY: Atypical chest pain. FINDINGS: An AP, portable, upright chest radiograph is compared to study dated 03/26/2020. The examination is degraded by portable technique and patient rotation. The heart is enlarged noting atherosclerotic calcification of the thoracic aorta. The pulmonary vasculature is noncongested. Chronic interstitial thickening similar to previous. Scarring/atelectasis is noted at the lung bases. No airspace consolidation or large pleural effusion is identified. No pneumothorax is seen. The bony thorax is grossly intact. Postsurgical changes noted in the spine with thoracolumbar spinal rods in place. There are chronic/healed right-sided rib fractures. Arthritic change is noted in the shoulders. IMPRESSION: Cardiomegaly with no acute cardiopulmonary abnormality. ACT 112: Negative or not required by law. Electronically signed by: Elver Herrera M.D. 06/28/2022 12:05 PM Code Status & VTE Plan Code Status Full Code in the event of cardiac or respiratory arrest VTE Prophylaxis Plan VTE Prophylaxis will be ordered: Yes Supervising Physician Co-Signing Physician Notes Pt seen and examined by me, care coordinated w/ E. GARRETT Moncada, pls refer to her note above for further detail. Pt is a 76 yo F w/ chronic back pain s/p failed back surgery, hx of Afib who now presents w/ chest pain, w/ radiation into her left arm and upper shoulder blades along with shortness of breath. Patient has noted some lower extremity swelling for which she followed-up with cardiology on 06/15. In ED, Troponin negative x2. No leukocytosis, BNP 440. Most recent ECHO 04/10/22: EF 55-59%, mild MR/TR with left ventricular wall thickening. Patient is noted to be followed by pain management through [facility] and has a Dilaudid pump. Currently laying in bed in NAD. She is awake alert oriented and answering questions appropriately. Heart sounds regular, CTAB. abdomen soft, nontender, nondistended. Mild LE noted b/l. Echo ordered and cardiology consult placed. Will also discuss w/ pain management, as above. MD Manas (1) Chest pain Chest pain type: unspecified Qualified Code(s): R07.9 - Chest pain, unspecified
[2022-06-28 15:14] LABS: Appearance Urine Clear (Clear); Bilirubin Urine Negative (Negative); Blood Urine Negative (Negative); Color Urine Yellow; Glucose Urine UA Negative (Negative); Ketones Urine Negative (Negative); Leukocyte Esterase Urine Negative (Negative); Nitrite Urine Negative (Negative); Protein Urine Negative (Negative); Urobilinogen Urine Negative (Negative); pH Urine 5.5 (4.5-7.5)
[2022-06-28] MEDS ORDERED: FUROSEMIDE INJ 20 MG/2 ML VIAL IV ONE (16:25)
[2022-06-28] MEDS: LIDOCAINE 5% 1 PATCH TD SCH (16:28)
[2022-06-28] MEDS ORDERED: METOCLOPRAMIDE HCL 5 MG TABLET PO SCH (16:30)
[2022-06-28] MEDS: HYDROcodone/ACETAMINOPHEN 10/325 TAB PO PRN ×2 (17:24→22:49)
[2022-06-28] MEDS: PROMETHAZINE HCL 25 MG TAB PO PRN (18:38)
[2022-06-28] MEDS ORDERED: NITROGLYCERIN SL 0.4 MG/TAB TAB SL STA (19:40)
[2022-06-28] MEDS: APIXABAN 5 MG TABLET PO SCH (19:54)
[2022-06-28] MEDS ORDERED: PANTOprazole 40 MG TAB PO SCH (21:00)
[2022-06-28] MEDS ORDERED: traZODone HCL 100 MG TAB PO SCH (21:00)
[2022-06-28] MEDS: ACETAMINOPHEN 325 MG TAB PO PRN (23:25)
[2022-06-29] MEDS: HYDROcodone/ACETAMINOPHEN 10/325 TAB PO PRN ×2 (04:17→10:44)
[2022-06-29 07:16] LABS: Hematocrit (blood only) 42.6 % (37.0-47.0); Hemoglobin 14.2 g/dl (12.0-16.0); Mean Corpuscular Hemoglobin 33.2 pg (25.0-34.0); Mean Corpuscular Hgb Conc 33.3 g/dL (32.0-36.0); Mean Corpuscular Volume 99.5 fL (80.0-100.0); Mean Platelet Volume 10.9 fL (9.4-12.4); Platelet Count 208 K/uL (130-400); RDW Standard Deviation 47.7 fL (36.4-46.3); Red Blood Count 4.28 M/uL (4.20-5.40); White Blood Count 9.79 K/ul (4.8-10.8)
[2022-06-29 07:23] LABS: BUN Creatinine Ratio 26.7 (10-20); Calcium 9.3 mg/dl (8.5-10.1); Creatinine Clr Calc Pharmacy 56.4 ml/min; Est GFR (African American) 101.9 ml/min; Est GFR (Non-African American) 87.9 ml/min; Magnesium 2.4 mg/dl (1.7-2.4); Potassium 3.4 mmol/L (3.5-5.1)
--- NOTE | 2022-06-29 08:06 | Pain Management Consultation ---
Date of Consultation June 29, 2022 Assessment & Plan (1) Presence of intrathecal pump: (2) Postlaminectomy syndrome of lumbosacral region: (3) Postlaminectomy syndrome of thoracic region: (4) H/O spinal fusion: (5) Opiate dependence: Plan 1. Patient defers any changes to the intrathecal pump at this time. Had a recent 10% increase on 06/08/22 with mild benefit. 2. Recommend continuation of current regimen. 3. Will check thoracolumbar x-ray to confirm catheter is intact. 4. We will send a urine sample for [facility] quantitative testing. Patient will sign an updated pain contract when she returns to our office as an outpatient. 5. Thank you for this consultation please call with any questions pain management will sign off. History of Present Illness Attending Physician: Nba Malagon MD History of Present Illness 76-year-old white female who is well-known to the pain service due to history of chronic pain associated with postlaminectomy syndrome of the lumbosacral and thoracic region requiring implantation of intrathecal pump and catheter delivery system. She was at the [facility] pain management office on 06/08/2022 and received a 10% increase for overall daily dosing of her intrathecal pump hydromorphone 1.518 mg/day. She presented to the [facility] emergency room on 06/28/2022 with chest pain. Pain management was consulted for presence of intrathecal pump. She typically receives oral opiates from her primary care physician which is well-known to our office. She states her pain is poorly controlled but has decided to defer surgical intervention as offered by Dr. Sapp under the recommendation of her PCP. Pain Assessment [facility] Combined Pain Scale: 8-Debilitating - Impairs activity. Can't maintain a conversation. Allergies Allergy/AdvReac Type Severity Reaction Status Date / Time chlorhexidine Allergy Mild Rash Verified 06/28/22 13:27 fluconazole [From Diflucan] AdvReac Severe Diarrhea Verified 06/28/22 13:27 (with oral) hydrochlorothiazide AdvReac Intermediate Pancreatiti Verified 06/28/22 13:27 s ondansetron [From Zofran] AdvReac Intermediate Headaches Verified 06/28/22 13:27 Home Medications Medication Instructions Recorded Confirmed Type [id number]-[id number] 250 1 tab PO Q6H PRN migraines 01/10/20 06/28/22 History mg-250 mg-65 mg tablet (Excedrin Extra Strength) calcium carbonate 600 mg calcium 600 mg PO QAM 01/10/20 06/28/22 History (1,500 mg) tablet (Calcium) multivitamin 1 tab PO QAM 02/05/20 06/28/22 History furosemide 40 mg tablet (Lasix) 40 mg PO QAM 12/19/20 06/28/22 History naloxone 4 mg/actuation nasal spray 1 spray intranasal Q3M PRN opioid 06/12/21 06/28/22 Rx overdose #2 ea metoclopramide HCl 5 mg tablet 5 mg PO ACHS 01/20/22 06/28/22 History omeprazole 20 mg tablet,delayed 20 mg PO QPM 01/20/22 06/28/22 History release rizatriptan 10 mg tablet 10 mg PO UD PRN Migraine Headache 01/20/22 06/28/22 History trazodone 100 mg tablet 100 mg PO HS 01/20/22 06/28/22 History apixaban 5 mg tablet (Eliquis) 5 mg PO BID 04/22/22 06/28/22 History diltiazem HCl 120 mg 120 mg PO DAILY 04/22/22 06/28/22 History capsule,extended release 24 hr hydrocodone 10 mg-acetaminophen 1 tab PO Q4H PRN Pain 04/22/22 06/28/22 History 325 mg tablet promethazine 12.5 mg tablet 12.5 mg PO Q6H PRN Nausea 06/08/22 06/28/22 History Patient History Medical History (Updated 06/29/22 @ 08:12 by Delmy Suazo DO) Atrial fibrillation Depression Fracture, tibia, with fibula Gastric ulcer Gastritis "Getting under control" GERD (gastroesophageal reflux disease) Hiatal hernia History of blood transfusion Pt reports post-op after hip surgery and lumbar surgery History of syncope Previously followed with cardiology, per Dr Lockhart ([facility]), "syncope in the setting of polypharmacy for severe low back pain." Last seen by cardio 11/2018, to follow up PRN per cardio. Migraine MVP (mitral valve prolapse) Not noted on 03/2016 echo (Mild MR was present) Opiate dependence Pancreatitis Approximately 2018 Postlaminectomy syndrome of lumbosacral region Postlaminectomy syndrome of thoracic region Recurrent UTI Surgical History H/O spinal fusion Extensive [id number] (x2 lumbar fusions) History of anesthesia reaction "severe hypotension" per patient following second back surgery. ([facility] 2017). Review of records shows documentation from anesthesia that hypotension was treated in PACU, BP in post-anesthetic evaluation 92/51. Subsequent intrathecal pain pump (03/19/20): Grade view 1, MAC#3, ETT 6.5 at [facility] without issue noted per post-op anesthesia progress note/discharge summary. History of appendectomy History of cardiac cath Approximately 1994 > no stents History of cataract surgery R/L History of cholecystectomy History of colonoscopy History of dilatation and curettage History of esophagogastroduodenoscopy (EGD) History of hip surgery Right hip History of open reduction and internal fixation (ORIF) procedure Left hip S/P hardware removal Left hip x2 S/P CECILIA-BSO Family History Mother Family history of diabetes mellitus Grandmother (Maternal) Family history of diabetes mellitus Grandmother (Paternal) Family history of diabetes mellitus Other No family history of adverse response to anesthesia Social History Smoking Status: Current every day smoker Tobacco Type: Cigarettes packs per day: 0.5; Cigarettes Per Day: 8; Second Hand Exposure: Yes; Do You Dip or Chew Tobacco: No; Tobacco Cessation Education Requested by Patient: No Hx Alcohol Use: No Hx Substance Use: No Preferred Language: Arabic Communication Ability: Effective Visual Impairment: No Limitations Hearing Ability: Normal Optimization Consultant Required: No Beliefs That Will Affect Care: None marital status: Current Living Situation: Spouse current occupational status: retired Other Information That Helps Us Care for You: No Feels Safe at Home: Yes Safety Concerns: Feels Safe At This Time Assistive Devices: Walker Physical Exam Constitutional: WD/WN, vitals as above + thin; not in distress Eyes: PERRL, conjunctivae normal, anicteric sclerae ENMT: external ear and nose normal, oropharynx normal Neck: trachea midline, no thyromegaly Respiratory: normal respiratory effort; no respiratory distress Cardiovascular: Rate/Rhythm: regular rate Gastrointestinal (Abdomen): LLQ pump site WNL, no erythema/drainage Skin: no rashes, warm and dry Psychiatric: A+Ox3, euthymic affect Results (Pain Clinic) Diagnostic Review Radiology Findings: 06/28/22 SINGLE VIEW CHEST CLINICAL HISTORY: Atypical chest pain. FINDINGS: An AP, portable, upright chest radiograph is compared to study dated 03/26/2020. The examination is degraded by portable technique and patient rotation. The heart is enlarged noting atherosclerotic calcification of the thoracic aorta. The pulmonary vasculature is noncongested. Chronic interstitial thickening similar to previous. Scarring/atelectasis is noted at the lung bases. No airspace consolidation or large pleural effusion is identified. No pneumothorax is seen. The bony thorax is grossly intact. Postsurgical changes noted in the spine with thoracolumbar spinal rods in place. There are chronic/healed right-sided rib fractures. Arthritic change is noted in the shoulders. IMPRESSION: Cardiomegaly with no acute cardiopulmonary abnormality. Previous Records Review Previous Records: personally reviewed by me
[2022-06-29] MEDS ORDERED: POTASSIUM CHLORIDE CRTAB 20 MEQ TABCR PO STA (08:45)
--- NOTE | 2022-06-29 08:46 | Electrocardiogram Report ---
Test Reason : Blood Pressure : / mmHG Vent. Rate : 066 BPM Atrial Rate : 066 BPM P-R Int : 146 ms QRS Dur : 078 ms QT Int : 388 ms P-R-T Axes : 048 022 072 degrees QTc Int : 406 ms Normal sinus rhythm with sinus arrhythmia Low voltage QRS Nonspecific ST abnormality Abnormal ECG When compared with ECG of 07-FEB-2020 11:08, Nonspecific T wave abnormality, worse in Anterolateral leads Confirmed by Nirav Mckeon ([id number]) on 06/29/2022 8:46:49 AM Referred By: REFERRED SELF Confirmed By:Shakeel Mckeon
[2022-06-29] MEDS ORDERED: CALCIUM CARBONATE 1250MG TAB PO SCH (09:00)
[2022-06-29] MEDS ORDERED: MULTIVITAMIN TAB PO SCH (09:00)
[2022-06-29] MEDS ORDERED: dilTIAZem HCL 120 MG CAPCR PO SCH (09:00)
--- NOTE | 2022-06-29 09:04 | Cardiology Consultation ---
Date of Consultation June 29, 2022 Assessment & Plan (1) Atypical chest pain: (2) Paroxysmal atrial fibrillation: Plan Episode of atypical chest discomfort that occurred with rest and improved when she blood pressure on her chest wall muscle. High-sensitivity troponin negative x2. EKG showing sinus bradycardia, 54 bpm with low voltage QRS and nonspecific T wave abnormality, no change compared to prior EKGs. Symptoms unlikely to be cardiac in nature-- likely a musculoskeletal component. Patient with a history of paroxysmal A-fib, acute hospitalization 03/04/2022 with RVR, first onset. ChadsVasc2 score= 4. Repeat ER visit 05/15/2022 with A-fib RVR with spontaneous conversion. Telemetry revealing sinus rhythm with PACs with rates in the 50s to 60s. Continue Eliquis and diltiazem as ordered. Case discussed with Dr. Ponce. No further cardiac recommendations at this time. Continue all cardiac medications as ordered. Continue to follow with pain management regarding chronic back pain. Supervising Physician Co-Signing Physician Notes I have reviewed the advanced practitioner documentation and agree. I saw and evaluated the patient on date of service referenced in note and have performed the following medically appropriate history and/or exam: Currently stable from a cardiac standpoint. Continue current doses of Eliquis and diltiazem. History of Present Illness Reason for Consultation: Chest pain Requesting Physician: Carol palacios Attending Physician: Nba Malagon MD History of Present Illness 76-year-old female who initially presented to [facility] emergency department due to chest pain that occurred on the left side of her chest and radiated to her left arm while she was sitting in her chair watching TV. Pain improved when patient pressed on her chest. Denies any other associated symptoms. She took 4 baby aspirin prior to presenting to the emergency department. High-sensitivity troponin negative x3 (6.8>>4.3>>3.6). Mild hypokalemia, 3.4- supplemented with 40 mEq of KCl Outpatient echo dated 04/2022 showed a preserved LV systolic function of 55 to 59% with mild MR and TR. Telemetry: SR with PACs 50-60s. Upon entrance into the room patient was lying supine in bed. Notes that her main concern regarding severe back discomfort. She has not had any further chest discomfort. Denies shortness of breath, no palpitations or dizziness. No syncope. Lives a generally sedentary life. Ambulates with a walker at home. Past medical history: Paroxysmal A-fib, acute hospitalization 03/04/2022 with RVR, first onset. ChadsVasc2 score= 4 Repeat ER visit 05/15/2022 with A-fib RVR with spontaneous conversion Hypertension Mitral insufficiency Chronic tobacco use with COPD Chronic pain, previous thoracic spine surgery 2017. Has pain pump. Allergies Allergy/AdvReac Type Severity Reaction Status Date / Time chlorhexidine Allergy Mild Rash Verified 06/28/22 13:27 fluconazole [From Diflucan] AdvReac Severe Diarrhea Verified 06/28/22 13:27 (with oral) hydrochlorothiazide AdvReac Intermediate Pancreatiti Verified 06/28/22 13:27 s ondansetron [From Zofran] AdvReac Intermediate Headaches Verified 06/28/22 13:27 Home Medications Medication Instructions Recorded Confirmed Type [id number] 250 1 tab PO Q6H PRN migraines 01/10/20 06/28/22 History mg-250 mg-65 mg tablet (Excedrin Extra Strength) calcium carbonate 600 mg calcium 600 mg PO QAM 01/10/20 06/28/22 History (1,500 mg) tablet (Calcium) multivitamin 1 tab PO QAM 02/05/20 06/28/22 History furosemide 40 mg tablet (Lasix) 40 mg PO QAM 12/19/20 06/28/22 History naloxone 4 mg/actuation nasal spray 1 spray intranasal Q3M PRN opioid 06/12/21 06/28/22 Rx overdose #2 ea metoclopramide HCl 5 mg tablet 5 mg PO ACHS 01/20/22 06/28/22 History omeprazole 20 mg tablet,delayed 20 mg PO QPM 01/20/22 06/28/22 History release rizatriptan 10 mg tablet 10 mg PO UD PRN Migraine Headache 01/20/22 06/28/22 History trazodone 100 mg tablet 100 mg PO HS 01/20/22 06/28/22 History apixaban 5 mg tablet (Eliquis) 5 mg PO BID 04/22/22 06/28/22 History diltiazem HCl 120 mg 120 mg PO DAILY 04/22/22 06/28/22 History capsule,extended release 24 hr hydrocodone 10 mg-acetaminophen 1 tab PO Q4H PRN Pain 04/22/22 06/28/22 History 325 mg tablet promethazine 12.5 mg tablet 12.5 mg PO Q6H PRN Nausea 06/08/22 06/28/22 History Patient History Medical History (Updated 06/29/22 @ 11:03 by GARRETT Wilburn) Atrial fibrillation Depression Fracture, tibia, with fibula Gastric ulcer Gastritis "Getting under control" GERD (gastroesophageal reflux disease) Hiatal hernia History of blood transfusion Pt reports post-op after hip surgery and lumbar surgery History of syncope Previously followed with cardiology, per Dr Lockhart ([facility]), "syncope in the setting of polypharmacy for severe low back pain." Last seen by cardio 11/2018, to follow up PRN per cardio. Migraine MVP (mitral valve prolapse) Not noted on 03/2016 echo (Mild MR was present) Opiate dependence Pancreatitis Approximately 2017 Postlaminectomy syndrome of lumbosacral region Postlaminectomy syndrome of thoracic region Recurrent UTI Surgical History H/O spinal fusion Extensive [id number] (x2 lumbar fusions) History of anesthesia reaction "severe hypotension" per patient following second back surgery. ([facility] 2017). Review of records shows documentation from anesthesia that hypotension was treated in PACU, BP in post-anesthetic evaluation 92/51. Subsequent intrathecal pain pump (03/19/20): Grade view 1, MAC#3, ETT 6.5 at [facility] without issue noted per post-op anesthesia progress note/discharge summary. History of appendectomy History of cardiac cath Approximately 1994 > no stents History of cataract surgery R/L History of cholecystectomy History of colonoscopy History of dilatation and curettage History of esophagogastroduodenoscopy (EGD) History of hip surgery Right hip History of open reduction and internal fixation (ORIF) procedure Left hip S/P hardware removal Left hip x2 S/P CECILIA-BSO Family History Mother Family history of diabetes mellitus Grandmother (Maternal) Family history of diabetes mellitus Grandmother (Paternal) Family history of diabetes mellitus Other No family history of adverse response to anesthesia Social History Smoking Status: Current every day smoker Tobacco Type: Cigarettes packs per day: 0.5; Cigarettes Per Day: 8; Second Hand Exposure: Yes; Do You Dip or Chew Tobacco: No; Tobacco Cessation Education Requested by Patient: No Hx Alcohol Use: No Hx Substance Use: No Preferred Language: Slovenian Communication Ability: Effective Visual Impairment: No Limitations Hearing Ability: Normal Finger Lift Operator Required: No Beliefs That Will Affect Care: None marital status: Current Living Situation: Spouse current occupational status: retired Other Information That Helps Us Care for You: No Feels Safe at Home: Yes Safety Concerns: Feels Safe At This Time Assistive Devices: Walker Physical Exam Constitutional: WD/WN, vitals as above + thin; no acute distress Eyes: PERRL, conjunctivae normal, anicteric sclerae Neck: normal visual inspection and trachea midline Respiratory: normal respiratory effort, lungs clear to auscultation Cardiovascular: RRR, no murmur, no edema Rate/Rhythm: regular rate and regular rhythm Heart Sounds: normal S1 and normal S2; no murmur Vessels: no JVD Extremities: + edema (Trace bilateral nonpitting lower extremity edema) Gastrointestinal (Abdomen): normal bowel sounds, soft, nontender, no hepatosplenomegaly Skin: no rashes, warm and dry Results & Data ([facility]) Vital Signs (Past 12 Hours) Vital Signs Temp Pulse Pulse Resp BP Pulse Ox O2 Del Method 06/29/22 07:43 36.9 C 72 16 154/78 H 95 Room Air 06/29/22 02:10 36.6 C 64 18 118/66 95 Room Air 06/29/22 01:31 62 06/28/22 22:42 36.6 C 57 L 18 114/61 92 Room Air Laboratory Results Cardiac Enzymes 06/28/22 06/28/22 06/28/22 Range/Units 12:00 12:00 15:04 AST 13 (13-39) U/L Troponin I High Sens 3.6 4.3 (0-14) pg/ml B-Natriuretic Peptide 444 H (0-100) pg/ml 06/28/22 Range/Units 20:14 AST (13-39) U/L Troponin I High Sens 6.8 (0-14) pg/ml B-Natriuretic Peptide (0-100) pg/ml Coagulation 06/28/22 06/28/22 Range/Units 12:00 12:00 PT 11.4 (9.0-12.0) Seconds APTT 41.6 H (21.0-31.0) Seconds B-Natriuretic Peptide 444 H (0-100) pg/ml CBC 06/28/22 06/29/22 Range/Units 12:00 06:20 WBC 7.89 9.79 (4.8-10.8) K/ul RBC 4.29 4.28 (4.20-5.40) M/uL Hgb 14.4 14.2 (12.0-16.0) g/dl Hct 43.9 42.6 (37.0-47.0) % Plt Count 210 208 (130-400) K/uL Neut # (Auto) 6.13 (1.40-6.50) K/uL Lymph # (Auto) 1.06 L (1.2-3.4) K/uL Pacific # (Auto) 0.50 (0.11-0.59) K/uL Eos # (Auto) 0.10 (0-0.50) K/uL Baso # (Auto) 0.06 (0-0.2) K/uL Comprehensive Metabolic Panel 06/28/22 06/29/22 Range/Units 12:00 06:20 Sodium 139 139 (136-145) mmol/L Potassium 4.5 3.4 L D (3.5-5.1) mmol/L Chloride 104 104 (98-107) mmol/L Carbon Dioxide 29 32 (21-32) mmol/L BUN 14 16 (6-23) mg/dl Creatinine 0.64 0.60 (0.6-1.2) mg/dl Glucose 97 115 H (70-99(Fasting)) mg/dl Calcium 8.9 9.3 (8.5-10.1) mg/dl AST 13 (13-39) U/L ALT 5 L (7-52) U/L Alkaline Phosphatase 99 (34-104) U/L Total Protein 6.5 (6.0-8.3) gm/dl Albumin 4.1 (3.4-5.0) gm/dl Intake and Output 06/28/22 06/29/22 06/29/22 22:59 06:59 14:59 Intake Total 270 / 370 100 / 370 Output Total 1201 / 1526 325 / 1526 Balance -931 / -1156 -225 / -1156 Intake: Oral 270 / 370 100 / 370 Output: Urine Amount (Catheter) 1200 / 1525 325 / 1525 Meléndez/Indwelling 1200 / 1525 325 / 1525 # Bowel Movements Other: Weight 48.8 kg 48.7 kg Weight Measurement Method Built in [facility]
[2022-06-29] MEDS: APIXABAN 5 MG TABLET PO SCH (09:09)
[2022-06-29] MEDS: ACETAMINOPHEN 325 MG TAB PO PRN (09:16)
[2022-06-29] MEDS: LIDOCAINE 5% 1 PATCH TD SCH (09:26)
--- NOTE | 2022-06-29 09:33 | Electrocardiogram Report ---
Test Reason : Blood Pressure : / mmHG Vent. Rate : 054 BPM Atrial Rate : 054 BPM P-R Int : 144 ms QRS Dur : 068 ms QT Int : 420 ms P-R-T Axes : 046 030 072 degrees QTc Int : 398 ms Sinus bradycardia Low voltage QRS Nonspecific ST abnormality Abnormal ECG When compared with ECG of 28-JUN-2022 11:35, (unconfirmed) No significant change was found Confirmed by Nirav Mckeon ([id number]) on 06/29/2022 9:33:00 AM Referred By: REFERRED SELF Confirmed By:Shakeel Mckeon
[2022-06-29] MEDS: PROMETHAZINE HCL 25 MG TAB PO PRN (10:00)
--- NOTE | 2022-06-29 14:10 | XRay Report ---
XR thoracolumbar spine 2V CLINICAL HISTORY: assess intrathecal catheter, (cath tip at T8) COMPARISON STUDY: Thoracolumbar spine radiographs March 26, 2020. Thoracic spine CT and MRI of th e thoracic spine August 08, 2021. FINDINGS: T8-S1 fusion is noted. Several thoracic spine compression fractures appear unchanged. The h ardware is intact. No definite acute fractures. Intrathecal catheter tip is at the inferior T8 level. The catheter is partially obscured by spinal hardware but grossly intact. There are cholecystectomy clips in a partially visualized right femoral internal fixation. Bowel gas pattern is normal. IMPRESSION: 1. Status post T8-S1 fusion. Several old thoracic spine compression fractures which are similar appea jamel to prior exam. 2. Tip of the intrathecal catheter is at the inferior T8 level. The tubing is only partially visualiz ed but appears grossly intact. ACT 112: Negative or not required by law. Electronically signed by: Nitish Singleton M.D. 06/29/2022 2:07 PM
--- NOTE | 2022-06-29 19:43 | Discharge Summary ---
Date of Service June 29, 2022 Admission HPI Per Admitting Provider Alexia Campos is a 76-year-old female that presented to the [facility] ED after she started to experience chest pain. Patient reports that her pain has been occurring since early this morning around 8:30 AM. She did take 4 baby aspirin prior to coming to the ED. She reports radiation into her left arm and upper shoulder blades along with shortness of breath. Patient has chronic pain issues from previous thoracic spine surgery in 2017. She did report flling 1 week ago after feeling dizzy, fell to her knees; denies hitting head or LOC. Patient has noted some lower extremity swelling for which she did follow-up with cardiology on 06/15 and after review of EMR chart; lisinopril was discontinued due to hypotension, diltiazem dose was adjusted from 180 mg to 120 mg daily. Additionally patient was to continue furosemide twice weekly but to take it consecutively for 3 days while adding spironolactone 12.5 mg 3 days/week. In ED, Troponin negative x2. No leukocytosis, BNP 440. Most recent ECHO 04/10/22: EF 55-59%, mild MR/TR with left ventricular wall thickening. Additional past medical history includes atrial fibrillation (On Eliquis), GERD and thoracic spine surgery. There is difficulty opening the pain management notes in [facility] however patient is noted to be followed by pain management through [facility] and has a Dilaudid pump that is refilled monthly from what I can tell in [facility]. Additionally patient takes trazodone and Hydrocodone every 6 as needed for pain. " a few different physicians". Patient reports that she has been recently admitted in [place] and follows with will recommend inpatient pain management consultation and review of PDMP there there is a narcotic contract signed on file. Noted syncope in her past related to polypharmacy. Received low dose Dilaudid in ED. Patient reports being an active smoker 1/2 PPD with no plans to quit smoking. Denies alcohol use, but does report medical marijuana use for pain. Patient will be admitted for further evaluation and management. Please see initial assessment for further details Admission Exam Per Admitting Provider Neuro: AAOx4, PERRLA, no aphagia, memory changes, CNII-XII grossly intact HEENT: head normocephalic, moist mucus membranes CV: S1/S2, (-) M/G/R, (-) edema, cap refill < 3 seconds Resp: Lungs CTA in all blum. On RA GI: Abdomen S/NT/ND, Ax4 bowel sounds, (-) CVA tenderness Musculoskeletal: 5/5 B/L UE strength, 5/5 B/L LE strength. No gait disturbance Skin: (-) rashes , (-) erythema. Psych: euthymic mood Principal Diagnosis Atypical chest pain History of chronic back pain Discharge Exam General : WD/WN F in NAD HEENT: head normocephalic, moist mucus membranes CV: S1/S2, (-) M/G/R, minimal LE edema Resp: Lungs CTA in all blmu. On RA GI: Abdomen S/NT/ND, Ax4 bowel sounds, (-) CVA tenderness Musculoskeletal: moves extremities Skin: (-) rashes , (-) erythema. Neuro: AAOx4, PERRL, speech fluent, no facial asymmetry, moves extremities Psych: euthymic mood Discharge Data Allergies Allergy/AdvReac Type Severity Reaction Status Date / Time chlorhexidine Allergy Mild Rash Verified 06/28/22 13:27 fluconazole [From Diflucan] AdvReac Severe Diarrhea Verified 06/28/22 13:27 (with oral) hydrochlorothiazide AdvReac Intermediate Pancreatiti Verified 06/28/22 13:27 s ondansetron [From Zofran] AdvReac Intermediate Headaches Verified 06/28/22 13:27 Consultations 06/28/22 13:55 ED Decision to Admit Stat 06/28/22 14:14 Consult Cardiology Routine 06/29/22 08:00 Consult Pain Management Routine Hospital Course (1) Chest pain: (2) Atrial fibrillation: (3) History of back pain: (4) H/O spinal fusion: Plan 76 y/o that presents with chest pain. H/O Afib. Initial troponin negative, will trend to R/O ACS. Pain management consult for chronic pain; pt has dilaudid pump.Cardiology consult. Chest Pain: 08/17 in ED; resolving. Anterior chest pain with left arm radiation -Initial Troponin negative x2 ( 3.7; 4.3 ) -EKG Flattened T-wave -Meléndez for accurate I/O -Recent ECHO 04/11/22: EF 55-59%, Mild MR/TR, LV wall thickening increase; will repeat while here. -Cardiology consulted for continuation of care; see below -BNP 444 Atrial Fibrillation: -Chronic; on Eliquis; continue -rate controlled in ED. -Follows with Dr. Richy MILLER with Cardiology. --------Recent appointment: --------*dose adjustment Diltazem 180 mg --> 120 mg --------*Continue Lasix and added Aldactone --------*Discontinued Lisinopril d/t hypotension --------* was having conversation regarding anti-arrythmic or ablation if symptoms continue Pt seen by cardiology while inpt and echo obtained. No changes in medications recommended at this time and ok for dc. History of Back pain: H/O spinal fusion: -Takes Trazadone and hydrocodone -Received [place] in ED for pain -Per review of [facility] notes patient has Dilaudid pump that is refilled monthly -Narcotic agreement signed and on file previously -Pain management consulted - UDS quantitative ordered as well as thoracolumbar xray, discussed over the phone w/ Dr. Suazo - ok to dc and will follow with the pt as outpt Total Time Total Time Spent Total Time Spent (In Minutes): 40 Discharge Plan Discharge Items Patient Disposition: Home - Self-Care Reason For Visit: CHEST PAIN Discharge Diagnosis: Atypical chest pain History of chronic back pain Activity: Per Instructions section Non-emergency contact: Primary Care Provider and Specialist Call non-emergency contact if: you have any medication questions and your symptoms worsen Follow-up/Referrals: Casey Rodgers [Primary Care Provider] - 07/13/22 12:00 pm Diet: Heart Healthy Addtl Attending Provider Instructions: Follow-up with your primary care doctor, chest painting leader, and pain management. You should see your primary care doctor within 2 weeks. Continue your current medications as you were instructed by your outpatient providers. Pending Studies at Discharge: No Stand-Alone Forms: [employer], Smoking Cessation Medications and DC Order Prescriptions: Continued calcium carbonate [Calcium 600] 600 mg calcium (1,500 mg) tablet 600 mg PO QAM Excedrin Extra Strength 250-250-65 mg tablet 1 tab PO Q6H PRN (Reason: migraines) naloxone 4 mg/actuation spray,non-aerosol 1 spray intranasal Q3M PRN (Reason: opioid overdose) Qty: 2 0RF Rx Instructions: admin 1 dose into 1 nostril; alternate nostrils w each dose until assistance arrives diltiazem HCl 120 mg capsule,extended release 24hr 120 mg PO DAILY Eliquis 5 mg tablet 5 mg PO BID furosemide [Lasix] 40 mg tablet 40 mg PO QAM hydrocodone-acetaminophen 10-325 mg tablet 1 tab PO Q4H PRN (Reason: Pain) promethazine 12.5 mg tablet 12.5 mg PO Q6H PRN (Reason: Nausea) multivitamin Tablet 1 tab PO QAM trazodone 100 mg Tablet 100 mg PO HS omeprazole 20 mg Tablet,Delayed Release (Dr/Ec) 20 mg PO QPM rizatriptan 10 mg Tablet 10 mg PO UD PRN (Reason: Migraine Headache) Rx Instructions: take 1 tab at onset of headache; if no relief may repeat 1 tab after at least 2 hrs; max = 3 tabs/24 hr metoclopramide HCl 5 mg Tablet 5 mg PO ACHS Discharge Orders: Discharge Order (Routine); Ordered 06/29/22 Ordered By: Nba Malagon Admission Data Admit Date/Time: 06/28/22 14:14 Attending Provider: Nba Malagon Admit Provider: Nba Malagon Primary Care Provider: Casey Rodgers Other Providers: Nba Malagon ; Colin Ponce ; Wilber Lima Other Interventions: Discharge Summary Assessment (RN) Last Done: 06/29/22 14:25
== END 2022-06-29 14:43 | disposition home or self-care (01) | DRG 313 ==
LOC: ED 11:22 → 2S 14:14
DX: Z83.3 Family history of diabetes mellitus; Z98.1 Arthrodesis status; R94.31 Abnormal electrocardiogram [ECG] [EKG]; Z96.89 Presence of other specified functional implants; G89.29 Other chronic pain; I48.20 Chronic atrial fibrillation, unspecified; F12.90 Cannabis use, unspecified, uncomplicated; Z79.82 Long term (current) use of aspirin; R07.89 Other chest pain; M54.89 Other dorsalgia; Z87.440 Personal history of urinary (tract) infections; F17.210 Nicotine dependence, cigarettes, uncomplicated; Z79.01 Long term (current) use of anticoagulants; F11.20 Opioid dependence, uncomplicated

== ENCOUNTER 2022-11-07 19:33 | Inpatient (IN) ==
[2022-11-07] MEDS ORDERED: HYDROmorphone INJ 0.5 MG/0.5 ML SYR IV STA (19:49)
--- NOTE | 2022-11-07 19:58 | Emergency Department Note ---
Impression & Plan Left-sided chest pain, Hypoxia, Anticoagulated ED Provider Note INFORMANT: Patient ED PROVIDER(S): Jhon Dior MD CHIEF COMPLAINT: Chest pain PLAN: Disposition: Admitted Condition: Good Outpatient prescription management: none Referral: None MEDICAL DECISION MAKING: Patient presented because of left-sided chest pain. Work-up was initiated. ECG was nonischemic. Patient's chest x-ray did not reveal any acute process. Surgical hardware noted. Patient's CBC, chemistry panel, and troponin were unremarkable patient did receive a dose of Dilaudid and did feel significantly better. She received aspirin prehospital. Due to the hospital is felt to be appropriate. Patient and family were comfortable. [facility]. Patient was evaluated in the ER admitted for further management Discussed with financial center manager After review of the information above and other included data, I feel the patient requires admission. Triage Nursing notes reviewed and agree them. Vital Signs: reviewed and remarkable for no significant abnormalities Prior /Outside records reviewed: none Differential diagnosis: Cardiac ischemia, aortic dissection, pulmonary embolism, pneumothorax, pneu monia, pericarditis, myocarditis, esophageal rupture, GERD, cholecystitis, pancreatitis, musculoskeletal, as well as other pathologies. Diagnostics, as interpreted by me: ECG: Twelve-lead ECG reveals normal sinus rhythm at 84 bpm. Low voltage QRS. Nonspecific ST. No ST elevation. When compared to 28 June 2022 there is no significant change. Cardiac Monitoring: Cardiac monitoring ordered by me: The patient was placed on continuous cardiac monitoring and observed. It revealed a normal sinus rhythm at 76 beats per minute without ectopy or evidence of dysrhythmia. Medical decision rules: Patient is moderate risk by HEART SCORE. Imaging studies: Chest x-ray reveals no evidence of pneumothorax. Spinal hardware noted. No pneumonia. I refer you to the EMR for further details. HPI: The patient is a 76year old female who presents to the Emergency Room with complaints of left-sided chest pain. This started tonight and is currently improving. The patient also notes the following associated symptoms, nausea, left shoulder and left neck pain. The patient has been given aspirin and Zofran by EMS for relieving factors. Current pain is rated as 6/10. Patient notes pain was a 10 out of 10. Notes it somewhat worse with exertion but denies any change with breathing. Pt denies LOC, headache, fevers, chills, diaphoresis, visual changes, breathing difficulties, vomiting, abdominal pain, back pain, melena, hematochezia, urinary symptoms, numbness, weakness, lymphadenopathy, rash, or other complaints. PAST MEDICAL HISTORY: See Below, A-fib, anticoagulated PAST SURGICAL HISTORY: See Below, SOCIAL HISTORY: See Below, current smoker HOME MEDICATIONS: See Below ALLERGIES: See Below VITALS: See Below PHYSICAL EXAMINATION: GENERAL: Awake, alert, well-appearing, in no distress HENT: Normocephalic, atraumatic. Oropharynx unremarkable. EYES: Normal conjunctiva. Sclera non-icteric. NECK: Inspection normal. Non-tender. Supple. No nuchal rigidity. FROM. No masses. RESPIRATORY: Clear to auscultation. No wheezes. No rales. Normal respiratory effort. CARDIAC: Normal rate. Normal rhythm. No murmurs. No rubs. Extremities warm and well perfused. Pulses equal. No JVD. GI: Soft, non-distended. No r tenderness to palpation. No rebound or guarding. No masses. RECTAL: Deferred. MUSCULOSKELETAL: Atraumatic. Chest examination reveals left anterior rib tenderness. No joint edema. LOWER EXTREMITIES: Calves are equal size bilaterally and non-tender. No edema. No discoloration. NEURO: Normal sensorium. No sensory or motor deficits noted. SKIN: No rash or jaundice noted. Past Med/Surg History Medical History Atrial fibrillation Depression Fracture, tibia, with fibula Gastric ulcer Gastritis "Getting under control" GERD (gastroesophageal reflux disease) Hiatal hernia History of blood transfusion Pt reports post-op after hip surgery and lumbar surgery History of syncope Previously followed with cardiology, per Dr Lockhart ([facility]), "syncope in the setting of polypharmacy for severe low back pain." Last seen by cardio 11/2018, to follow up PRN per cardio. Migraine MVP (mitral valve prolapse) Not noted on 03/2016 echo (Mild MR was present) Opiate dependence Pancreatitis Approximately 2018 Postlaminectomy syndrome of lumbosacral region Postlaminectomy syndrome of thoracic region Recurrent UTI Surgical History H/O spinal fusion Extensive [id number] (x2 lumbar fusions) History of anesthesia reaction "severe hypotension" per patient following second back surgery. ([facility] 2017). Review of records shows documentation from anesthesia that hypotension was treated in PACU, BP in post-anesthetic evaluation 92/51. Subsequent intrathecal pain pump (03/19/20): Grade view 1, MAC#3, ETT 6.5 at [facility] [place] without issue noted per post-op anesthesia progress note/discharge summary. History of appendectomy History of cardiac cath Approximately 1994 > no stents History of cataract surgery R/L History of cholecystectomy History of colonoscopy History of dilatation and curettage History of esophagogastroduodenoscopy (EGD) History of hip surgery Right hip History of open reduction and internal fixation (ORIF) procedure Left hip S/P hardware removal Left hip x2 S/P CECILIA-BSO Family History Mother Family history of diabetes mellitus Grandmother (Maternal) Family history of diabetes mellitus Grandmother (Paternal) Family history of diabetes mellitus Other No family history of adverse response to anesthesia Social History Smoking Status: Current every day smoker Tobacco Type: Cigarettes packs per day: 0.5; Cigarettes Per Day: 8; Second Hand Exposure: Yes; Do You Dip or Chew Tobacco: No; Hx Alcohol Use: No Hx Substance Use: No Preferred Language: Telugu Communication Ability: Effective Visual Impairment: No Limitations Hearing Ability: Normal 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 Required: No Beliefs That Will Affect Care: None marital status: Current Living Situation: Spouse current occupational status: retired Feels Safe at Home: Yes Assistive Devices: Walker Allergies Allergies Allergy/AdvReac Type Severity Reaction Status Date / Time chlorhexidine Allergy Mild Rash Verified 11/07/22 20:30 fluconazole [From Diflucan] AdvReac Severe Diarrhea Verified 11/07/22 20:30 (with oral) hydrochlorothiazide AdvReac Intermediate Pancreatiti Verified 11/07/22 20:30 s ondansetron [From Zofran] AdvReac Intermediate Headaches Verified 11/07/22 20:30 Home Meds Home Medications Medication Instructions Recorded Confirmed [id number]-prkdizibsdsnq-enaifmqu 250 1 tab PO Q6H PRN migraines 01/10/20 11/07/22 mg-250 mg-65 mg tablet (Excedrin Extra Strength) calcium carbonate 600 mg calcium 600 mg PO QAM 01/10/20 11/07/22 (1,500 mg) tablet (Calcium) multivitamin 1 tab PO QAM 02/05/20 11/07/22 omeprazole 20 mg tablet,delayed 20 mg PO QPM 01/20/22 11/07/22 release rizatriptan 10 mg tablet 10 mg PO UD PRN Migraine Headache 01/20/22 11/07/22 trazodone 100 mg tablet 100 mg PO HS 01/20/22 11/07/22 apixaban 5 mg tablet (Eliquis) 5 mg PO BID 04/22/22 11/07/22 hydrocodone 10 mg-acetaminophen 1 tab PO Q4H PRN Pain 04/22/22 11/07/22 325 mg tablet promethazine 12.5 mg tablet 12.5 mg PO Q6H PRN Nausea 06/08/22 11/07/22 furosemide 20 mg tablet 20 mg PO QAM 11/07/22 11/07/22 Previous Rx's Medication Instructions Recorded naloxone 4 mg/actuation nasal spray 1 spray intranasal Q3M PRN opioid 07/13/22 overdose #2 ea Results & Data (ED) Vital Signs Vital Signs - 24 hr 11/07/22 19:38 11/07/22 19:38 11/07/22 19:46 Temperature 36.6 C Temperature Source Oral Pulse Rate 76 Respiratory Rate 14 Respiratory Effort / Characteristics Non-Labored Spontaneous Respiratory Depth Normal Respiratory Pattern Regular Blood Pressure 122/75 Blood Pressure Mean 90 Pulse Oximetry 95 98 Oxygen Delivery Method Nasal Cannula Nasal Cannula Nasal Cannula Oxygen Flow Rate 2 2 2 Sepsis Recent Fever Within 48 Hours No Sepsis New/Unexplained Change in Mental Status No Sepsis Action Taken by Nursing No Action Required 11/07/22 19:44 11/07/22 20:00 11/07/22 20:30 Temperature Temperature Source Pulse Rate 76 82 63 Respiratory Rate 18 12 Respiratory Effort / Characteristics Respiratory Depth Respiratory Pattern Blood Pressure 124/69 118/64 Blood Pressure Mean 87 82 Pulse Oximetry 96 98 Oxygen Delivery Method Oxygen Flow Rate Sepsis Recent Fever Within 48 Hours Sepsis New/Unexplained Change in Mental Status Sepsis Action Taken by Nursing 11/07/22 21:00 11/07/22 22:00 11/07/22 23:00 Temperature Temperature Source Pulse Rate 56 L 54 L 60 Respiratory Rate 20 16 12 Respiratory Effort / Characteristics Respiratory Depth Respiratory Pattern Blood Pressure 108/65 110/51 L 105/51 L Blood Pressure Mean 79 70 69 Pulse Oximetry 99 100 98 Oxygen Delivery Method Oxygen Flow Rate Sepsis Recent Fever Within 48 Hours Sepsis New/Unexplained Change in Mental Status Sepsis Action Taken by Nursing 11/07/22 23:50 Temperature Temperature Source Pulse Rate 51 L Respiratory Rate Respiratory Effort / Characteristics Respiratory Depth Respiratory Pattern Blood Pressure Blood Pressure Mean Pulse Oximetry Oxygen Delivery Method Oxygen Flow Rate Sepsis Recent Fever Within 48 Hours Sepsis New/Unexplained Change in Mental Status Sepsis Action Taken by Nursing Laboratory Data 11/07/22 14:45 11/07/22 14:45 Lab Results 11/07/22 11/07/22 11/07/22 Range/Units 14:45 14:45 21:57 WBC 6.90 (4.8-10.8) K/ul RBC 4.73 (4.20-5.40) M/uL Hgb 15.2 (12.0-16.0) g/dl Hct 46.7 (37.0-47.0) % MCV 98.7 (80.0-100.0) fL MCH 32.1 (25.0-34.0) pg MCHC 32.5 (32.0-36.0) g/dL RDW Std Deviation 51.4 H (36.4-46.3) fL RDW Coeff of Oliver 14.1 (11.5-14.5) % Plt Count 155 (130-400) K/uL MPV 11.2 (9.4-12.4) fL Immature Gran % (Auto) 0.9 % Neut % (Auto) 81.9 % Lymph % (Auto) 12.8 % [place] % (Auto) 3.6 % Eos % (Auto) 0.4 % Baso % (Auto) 0.4 % Neut # (Auto) 5.65 (1.40-6.50) K/uL Lymph # (Auto) 0.88 L (1.2-3.4) K/uL [place] # (Auto) 0.25 (0.11-0.59) K/uL Eos # (Auto) 0.03 (0-0.50) K/uL Baso # (Auto) 0.03 (0-0.2) K/uL Immature Gran # (Auto) 0.06 (0.01-0.20) K/uL Sodium 138 (136-145) mmol/L Potassium 4.0 (3.5-5.1) mmol/L Chloride 104 (98-107) mmol/L Carbon Dioxide 19 L (21-32) mmol/L Anion Gap 15 H (3-11) BUN 23 (6-23) mg/dl Creatinine 0.73 (0.6-1.2) mg/dl Est Cr Clr Drug Dosing 46.4 ml/min Est GFR ( Amer) 92.1 ml/min Est GFR (Non-Af Amer) 79.4 ml/min BUN/Creatinine Ratio 31.5 H (10-20) Glucose 66 L (70-99(Fasting)) mg/dl POC Glucose 75 (70-99) mg/dl Calcium 9.1 (8.6-10.3) mg/dl Total Bilirubin 0.9 (0.2-1.0) mg/dl AST 13 (13-39) U/L ALT 6 L (7-52) U/L Alkaline Phosphatase 104 (34-104) U/L Troponin I High Sens 6.8 (0-14) pg/ml Total Protein 6.5 (6.0-8.3) gm/dl Albumin 4.2 (3.4-5.0) gm/dl Globulin 2.3 L (2.5-4.0) gm/dl Albumin/Globulin Ratio 1.8 (0.9-2) Lipase 8 L (11-82) U/L SARS-CoV-2, RNA, NAAT (NEGATIVE) 11/07/22 Range/Units 22:40 WBC (4.8-10.8) K/ul RBC (4.20-5.40) M/uL Hgb (12.0-16.0) g/dl Hct (37.0-47.0) % MCV (80.0-100.0) fL MCH (25.0-34.0) pg MCHC (32.0-36.0) g/dL RDW Std Deviation (36.4-46.3) fL RDW Coeff of Oliver (11.5-14.5) % Plt Count (130-400) K/uL MPV (9.4-12.4) fL Immature Gran % (Auto) % Neut % (Auto) % Lymph % (Auto) % [place] % (Auto) % Eos % (Auto) % Baso % (Auto) % Neut # (Auto) (1.40-6.50) K/uL Lymph # (Auto) (1.2-3.4) K/uL [place] # (Auto) (0.11-0.59) K/uL Eos # (Auto) (0-0.50) K/uL Baso # (Auto) (0-0.2) K/uL Immature Gran # (Auto) (0.01-0.20) K/uL Sodium (136-145) mmol/L Potassium (3.5-5.1) mmol/L Chloride (98-107) mmol/L Carbon Dioxide (21-32) mmol/L Anion Gap (3-11) BUN (6-23) mg/dl Creatinine (0.6-1.2) mg/dl Est Cr Clr Drug Dosing ml/min Est GFR ( Amer) ml/min Est GFR (Non-Af Amer) ml/min BUN/Creatinine Ratio (10-20) Glucose (70-99(Fasting)) mg/dl POC Glucose (70-99) mg/dl Calcium (8.6-10.3) mg/dl Total Bilirubin (0.2-1.0) mg/dl AST (13-39) U/L ALT (7-52) U/L Alkaline Phosphatase (34-104) U/L Troponin I High Sens (0-14) pg/ml Total Protein (6.0-8.3) gm/dl Albumin (3.4-5.0) gm/dl Globulin (2.5-4.0) gm/dl Albumin/Globulin Ratio (0.9-2) Lipase (11-82) U/L SARS-CoV-2, RNA, NAAT NEGATIVE (NEGATIVE) Administered Medications Discontinued Medications Hydromorphone HCl (Hydromorphone Inj 0.5 Mg/0.5 Ml Syr) 0.25 mg IV NOW STA Stop: 11/07/22 19:50 Last Admin: 11/07/22 20:02 Dose: 0.25 mg Documented By: ETIENNE Discharge Plan Visit Data Chief Complaint: Chest Pain Stated Complaint: CHEST PAIN ED Provider: Jhon Dior Discharge Problem: Left-sided chest pain, Hypoxia, Anticoagulated Forms Stand Alone Forms: My [facility] Prescriptions Prescriptions: No Action calcium carbonate [Calcium 600] 600 mg calcium (1,500 mg) tablet 600 mg PO QAM Excedrin Extra Strength 250-250-65 mg tablet 1 tab PO Q6H PRN (Reason: migraines) Eliquis 5 mg tablet 5 mg PO BID naloxone 4 mg/actuation spray,non-aerosol 1 spray intranasal Q3M PRN (Reason: opioid overdose) Qty: 2 0RF Rx Instructions: admin 1 dose into 1 nostril; alternate nostrils w each dose until assistance arrives hydrocodone-acetaminophen 10-325 mg tablet 1 tab PO Q4H PRN (Reason: Pain) promethazine 12.5 mg tablet 12.5 mg PO Q6H PRN (Reason: Nausea) multivitamin Tablet 1 tab PO QAM trazodone 100 mg Tablet 100 mg PO HS omeprazole 20 mg Tablet,Delayed Release (Dr/Ec) 20 mg PO QPM rizatriptan 10 mg Tablet 10 mg PO UD PRN (Reason: Migraine Headache) Rx Instructions: take 1 tab at onset of headache; if no relief may repeat 1 tab after at least 2 hrs; max = 3 tabs/24 hr furosemide 20 mg tablet 20 mg PO QAM Referrals Referrals: Casey Rodgers [Primary Care Provider] -
[2022-11-07 20:07] LABS: Basophils # (auto) 0.03 K/uL (0-0.2); Basophils % (auto) 0.4 %; Eosinophils # (auto) 0.03 K/uL (0-0.50); Eosinophils % (auto) 0.4 %; Hematocrit (blood only) 46.7 % (37.0-47.0); Hemoglobin 15.2 g/dl (12.0-16.0); Immature Granulocytes # (auto) 0.06 K/uL (0.01-0.20); Immature Granulocytes % (auto) 0.9 %; Lymphocytes # (auto) 0.88 K/uL (1.2-3.4); Lymphocytes % (auto) 12.8 %; Mean Corpuscular Hemoglobin 32.1 pg (25.0-34.0); Mean Corpuscular Hgb Conc 32.5 g/dL (32.0-36.0); Mean Corpuscular Volume 98.7 fL (80.0-100.0); Mean Platelet Volume 11.2 fL (9.4-12.4); Monocytes # (auto) 0.25 K/uL (0.11-0.59); Monocytes % (auto) 3.6 %; Neutrophils # (auto) 5.65 K/uL (1.40-6.50); Neutrophils % (auto) 81.9 %; Platelet Count 155 K/uL (130-400); RDW Coefficient of Variation 14.1 % (11.5-14.5); RDW Standard Deviation 51.4 fL (36.4-46.3); Red Blood Count 4.73 M/uL (4.20-5.40)
[2022-11-07 20:28] LABS: Albumin Globulin Ratio 1.8 (0.9-2); Albumin Level 4.2 gm/dl (3.4-5.0); BUN Creatinine Ratio 31.5 (10-20); Bilirubin,Total 0.9 mg/dl (0.2-1.0); Calcium 9.1 mg/dl (8.6-10.3); Creatinine Clr Calc Pharmacy 46.4 ml/min; Est GFR (African American) 92.1 ml/min; Est GFR (Non-African American) 79.4 ml/min; Globulin 2.3 gm/dl (2.5-4.0); Total Protein 6.5 gm/dl (6.0-8.3)
[2022-11-07 20:33] LABS: Troponin I High Sensitivity 6.8 pg/ml (0-14)
[2022-11-07] MEDS ORDERED: LACTATED RINGER'S 1,000 ML IV STA (22:45)
--- NOTE | 2022-11-07 23:33 | History & Physical Report ---
Date of Service November 07, 2022 Assessment & Plan (1) NSTEMI (non-ST elevated myocardial infarction): Plan: Second troponin noted to be elevated PAF on Eliquis valvular heart disease (moderate to severe MR/mild TR, TTE 2022) chronic back pain status post surgery status post intrathecal pump placement GERD, stable on regimen ongoing tobacco abuse PCU Aspirin for CAD prevention Initiation of beta-jitendra currently precluded by bradycardia Follow troponin TTE, Cardiology consult Re: NSTEMI N.p.o., hold Eliquis until patient seen by cardiology; IV heparin 12 hours after last dose of Eliquis Nicotine patch DVT prophylaxis. IV heparin Full code Text document was generated using [employer] voice recognition software. It may contain grammatical or spelling errors. Kindly contact undersigned for clarification of any documentation item in question. History of Present Illness Chief Complaint: Chest pain Primary Care Provider: Casey Rodgers History obtained from patient and records. Medical history significant for PAF on Eliquis, valvular heart disease (moderate to severe MR/mild TR, TTE 2022), chronic back pain status post surgery status post intrathecal pump placement, GERD, mood disorder, ongoing tobacco abuse. Last confinement June 2022 for atypical chest pain. Patient was watching television few hours ago when she experienced achy left- sided chest pain going to her neck with some shortness of breath. Different from reflux attack. No unusual cough symptoms. EMS called to patient's home. Chest pain relieved by aspirin and nitroglycerin administration. Patient currently comfortable. 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 Allergies Allergy/AdvReac Type Severity Reaction Status Date / Time chlorhexidine Allergy Mild Rash Verified 11/07/22 20:30 fluconazole [From Diflucan] AdvReac Severe Diarrhea Verified 11/07/22 20:30 (with oral) hydrochlorothiazide AdvReac Intermediate Pancreatiti Verified 11/07/22 20:30 s ondansetron [From Zofran] AdvReac Intermediate Headaches Verified 11/07/22 20:30 Home Medications Medication Instructions Recorded Confirmed Type nvwehmn-pfcmaznvlrufm-bhwmubpr 250 1 tab PO Q6H PRN migraines 01/10/20 11/07/22 History mg-250 mg-65 mg tablet (Excedrin Extra Strength) calcium carbonate 600 mg calcium 600 mg PO QAM 01/10/20 11/07/22 History (1,500 mg) tablet (Calcium) multivitamin 1 tab PO QAM 02/05/20 11/07/22 History omeprazole 20 mg tablet,delayed 20 mg PO QPM 01/20/22 11/07/22 History release rizatriptan 10 mg tablet 10 mg PO UD PRN Migraine Headache 01/20/22 11/07/22 History trazodone 100 mg tablet 100 mg PO HS 01/20/22 11/07/22 History apixaban 5 mg tablet (Eliquis) 5 mg PO BID 04/22/22 11/07/22 History hydrocodone 10 mg-acetaminophen 1 tab PO Q4H PRN Pain 04/22/22 11/07/22 History 325 mg tablet promethazine 12.5 mg tablet 12.5 mg PO Q6H PRN Nausea 06/08/22 11/07/22 History naloxone 4 mg/actuation nasal spray 1 spray intranasal Q3M PRN opioid 07/13/22 11/07/22 Rx overdose #2 ea furosemide 20 mg tablet 20 mg PO QAM 11/07/22 11/07/22 History Past Med/Surg History Medical History Atrial fibrillation Depression Fracture, tibia, with fibula Gastric ulcer Gastritis "Getting under control" GERD (gastroesophageal reflux disease) Hiatal hernia History of blood transfusion Pt reports post-op after hip surgery and lumbar surgery History of syncope Previously followed with cardiology, per Dr Lockhart ([facility]), "syncope in the setting of polypharmacy for severe low back pain." Last seen by cardio 11/2018, to follow up PRN per cardio. Migraine MVP (mitral valve prolapse) Not noted on 03/2016 echo (Mild MR was present) Opiate dependence Pancreatitis Approximately 2018 Postlaminectomy syndrome of lumbosacral region Postlaminectomy syndrome of thoracic region Recurrent UTI Surgical History H/O spinal fusion Extensive [id number] (x2 lumbar fusions) History of anesthesia reaction "severe hypotension" per patient following second back surgery. ([facility] 2017). Review of records shows documentation from anesthesia that hypotension was treated in PACU, BP in post-anesthetic evaluation 92/51. Subsequent intrathecal pain pump (03/19/20): Grade view 1, MAC#3, ETT 6.5 at [facility] without issue noted per post-op anesthesia progress note/discharge summary. History of appendectomy History of cardiac cath Approximately 1994 > no stents History of cataract surgery R/L History of cholecystectomy History of colonoscopy History of dilatation and curettage History of esophagogastroduodenoscopy (EGD) History of hip surgery Right hip History of open reduction and internal fixation (ORIF) procedure Left hip S/P hardware removal Left hip x2 S/P CECILIA-BSO Family History Mother Family history of diabetes mellitus Grandmother (Maternal) Family history of diabetes mellitus Grandmother (Paternal) Family history of diabetes mellitus Other No family history of adverse response to anesthesia Social History Smoking Status: Current every day smoker Tobacco Type: Cigarettes packs per day: 0.5; Cigarettes Per Day: 1/2 pack; Second Hand Exposure: Yes; Do You Dip or Chew Tobacco: No; Tobacco Cessation Education Requested by Patient: No Hx Alcohol Use: No Hx Substance Use: No Preferred Language: Portuguese Communication Ability: Effective Visual Impairment: No Limitations Hearing Ability: Normal [employer] Unified Communications Engineer Required: No Beliefs That Will Affect Care: None marital status: Current Living Situation: Spouse Current Living Situation Comment: w/ current occupational status: retired Other Information That Helps Us Care for You: No Feels Safe at Home: Yes Safety Concerns: Feels Safe At This Time Assistive Devices: Walker Review of Systems Review of Systems: As per HPI, all other systems reviewed and negative Physical Exam Physical Exam: GENERAL: Comfortable, no respiratory distress SKIN: Normal color, warm HEENT: [place] palpebral conjunctivae, no ptosis, dry buccal mucosa, nasal cannula in place NECK : Supple, no tenderness CHEST : Decreased breath sounds, no tenderness HEART : Bradycardic, no obvious murmurs ABDOMEN: Some distention, nontender EXTREMITIES : No LE swelling/tenderness, no other conspicuous deformities noted NEUROLOGIC : Coherent, no facial asymmetry, no other gross focality Results & Data Results & Data Vital Signs (Past 12 Hours) Vital Signs Temp Pulse Resp BP Pulse Ox O2 Del Method O2 Flow Rate 11/07/22 19:44 76 11/07/22 19:46 98 Nasal Cannula 2 11/07/22 19:38 Nasal Cannula 2 11/07/22 19:38 36.6 C 76 14 122/75 95 Nasal Cannula 2 Laboratory Results Laboratory Results WBC 6.90 K/ul (4.8-10.8) 11/07/22 14:45 RBC 4.73 M/uL (4.20-5.40) 11/07/22 14:45 Hgb 15.2 g/dl (12.0-16.0) 11/07/22 14:45 Hct 46.7 % (37.0-47.0) 11/07/22 14:45 MCV 98.7 fL (80.0-100.0) 11/07/22 14:45 MCH 32.1 pg (25.0-34.0) 11/07/22 14:45 MCHC 32.5 g/dL (32.0-36.0) 11/07/22 14:45 RDW Std Deviation 51.4 fL (36.4-46.3) H 11/07/22 14:45 RDW Coeff of Oliver 14.1 % (11.5-14.5) 11/07/22 14:45 Plt Count 155 K/uL (130-400) 11/07/22 14:45 MPV 11.2 fL (9.4-12.4) 11/07/22 14:45 Immature Gran % (Auto) 0.9 % 11/07/22 14:45 Neut % (Auto) 81.9 % 11/07/22 14:45 Lymph % (Auto) 12.8 % 11/07/22 14:45 [place] % (Auto) 3.6 % 11/07/22 14:45 Eos % (Auto) 0.4 % 11/07/22 14:45 Baso % (Auto) 0.4 % 11/07/22 14:45 Neut # (Auto) 5.65 K/uL (1.40-6.50) 11/07/22 14:45 Lymph # (Auto) 0.88 K/uL (1.2-3.4) L 11/07/22 14:45 [place] # (Auto) 0.25 K/uL (0.11-0.59) 11/07/22 14:45 Eos # (Auto) 0.03 K/uL (0-0.50) 11/07/22 14:45 Baso # (Auto) 0.03 K/uL (0-0.2) 11/07/22 14:45 Immature Gran # (Auto) 0.06 K/uL (0.01-0.20) 11/07/22 14:45 Sodium 138 mmol/L (136-145) 11/07/22 14:45 Potassium 4.0 mmol/L (3.5-5.1) 11/07/22 14:45 Chloride 104 mmol/L (98-107) 11/07/22 14:45 Carbon Dioxide 19 mmol/L (21-32) L 11/07/22 14:45 Anion Gap 15 (3-11) H 11/07/22 14:45 BUN 23 mg/dl (6-23) 11/07/22 14:45 Creatinine 0.73 mg/dl (0.6-1.2) 11/07/22 14:45 Est Cr Clr Drug Dosing 46.4 ml/min 11/07/22 14:45 Est GFR ( Amer) 92.1 ml/min 11/07/22 14:45 Est GFR (Non-Af Amer) 79.4 ml/min 11/07/22 14:45 BUN/Creatinine Ratio 31.5 (10-20) H 11/07/22 14:45 Glucose 66 mg/dl (70-99(Fasting)) L 11/07/22 14:45 POC Glucose 75 mg/dl (70-99) 11/07/22 21:57 Calcium 9.1 mg/dl (8.6-10.3) 11/07/22 14:45 Total Bilirubin 0.9 mg/dl (0.2-1.0) 11/07/22 14:45 AST 13 U/L (13-39) 11/07/22 14:45 ALT 6 U/L (7-52) L 11/07/22 14:45 Alkaline Phosphatase 104 U/L (34-104) 11/07/22 14:45 Troponin I High Sens 6.8 pg/ml (0-14) 11/07/22 14:45 Total Protein 6.5 gm/dl (6.0-8.3) 11/07/22 14:45 Albumin 4.2 gm/dl (3.4-5.0) 11/07/22 14:45 Globulin 2.3 gm/dl (2.5-4.0) L 11/07/22 14:45 Albumin/Globulin Ratio 1.8 (0.9-2) 11/07/22 14:45 Lipase 8 U/L (11-82) L 11/07/22 14:45 SARS-CoV-2, RNA, NAAT NEGATIVE (NEGATIVE) 11/07/22 22:40 Diagnostic Findings Chest x-ray as per my interpretation cardiomegaly EKG as per my interpretation : Rate 80, NSR, normal axis, diffuse T wave flattening, low voltage
[2022-11-07] MEDS ORDERED: PROMETHAZINE HCL 6.25 MG in SODIUM CHLORIDE 0.9% 50 ML IV PRN (23:37)
[2022-11-08 00:24] LABS: Partial Thromboplastin Ratio 1.4
[2022-11-08 00:32] LABS: Partial Thromboplastin Time 40.7 Seconds (21.0-31.0)
[2022-11-08 00:56] LABS: Troponin I High Sensitivity 17.3 pg/ml (0-14)
[2022-11-08] MEDS ORDERED: Heparin IV Adult Wt-Based Standard *NO* Bolus Protocol IV STA (01:22)
[2022-11-08] MEDS ORDERED: NITROGLYCERIN SL 0.4 MG/TAB TAB SL PRN (02:10)
[2022-11-08] MEDS ORDERED: NALOXONE NASAL SPRAY 4 MG ER HOMEPACK PRN (02:10)
[2022-11-08] MEDS: ACETAMINOPHEN 325 MG TAB PO PRN (03:31)
[2022-11-08] MEDS: HYDROCODONE/ACETAMOPHEN 5/325MG TAB PO PRN ×3 (03:33→17:23)
[2022-11-08] MEDS: MoRPHine SULFATE 2 MG/ML CARP IV PRN ×2 (03:34→20:08)
[2022-11-08] MEDS: HEPARIN SODIUM/DEXTROSE 25,000 UNITS/500 ML BAG IV SCH (06:02)
[2022-11-08 06:15] LABS: Basophils # (auto) 0.04 K/uL (0-0.2); Basophils % (auto) 0.4 %; Eosinophils # (auto) 0.06 K/uL (0-0.50); Eosinophils % (auto) 0.6 %; Hematocrit (blood only) 43.9 % (37.0-47.0); Hemoglobin 14.3 g/dl (12.0-16.0); Immature Granulocytes # (auto) 0.03 K/uL (0.01-0.20); Immature Granulocytes % (auto) 0.3 %; Lymphocytes # (auto) 1.17 K/uL (1.2-3.4); Mean Corpuscular Hemoglobin 31.7 pg (25.0-34.0); Mean Corpuscular Hgb Conc 32.6 g/dL (32.0-36.0); Mean Corpuscular Volume 97.3 fL (80.0-100.0); Mean Platelet Volume 10.9 fL (9.4-12.4); Monocytes # (auto) 0.51 K/uL (0.11-0.59); Monocytes % (auto) 5.2 %; Neutrophils # (auto) 7.92 K/uL (1.40-6.50); Neutrophils % (auto) 81.5 %; Platelet Count 156 K/uL (130-400); RDW Standard Deviation 50.7 fL (36.4-46.3); Red Blood Count 4.51 M/uL (4.20-5.40); White Blood Count 9.73 K/ul (4.8-10.8)
[2022-11-08 06:25] LABS: BUN Creatinine Ratio 29.5 (10-20); Calcium 8.3 mg/dl (8.6-10.3); Chol HDL Ratio 4.3 (0-5); Creatinine Clr Calc Pharmacy 55.5 ml/min; Est GFR (African American) 101.3 ml/min; Est GFR (Non-African American) 87.4 ml/min
[2022-11-08 06:33] LABS: Troponin I High Sensitivity 13.4 pg/ml (0-14)
[2022-11-08 06:38] LABS: Partial Thromboplastin Ratio 1.3; Partial Thromboplastin Time 37.9 Seconds (21.0-31.0)
--- NOTE | 2022-11-08 06:55 | XRay Report ---
SINGLE VIEW CHEST CLINICAL HISTORY: Atypical chest pain. FINDINGS: An AP, portable, upright chest radiograph is compared to study dated 06/28/2022. The heart i s enlarged Atherosclerotic calcification of the thoracic aorta. The pulmonary vasculature is noncongested. Chron ic interstitial thickening is similar to previous. There is bibasilar scarring/atelectasis. No airspa ce consolidation or large pleural effusion is identified. No pneumothorax is seen. The skeletal struc tures are osteopenic. There are chronic/healed right-sided rib fractures. Extensive postsurgical parker ge is seen throughout the imaged thoracolumbar spine. There is chronic deformity of the right proxima l humerus. An electronic device projects over the left upper abdomen. IMPRESSION: Cardiomegaly with no active disease in the chest. ACT 112: Negative or not required by law. Electronically signed by: Elver Herrera M.D. 11/08/2022 6:53 AM
[2022-11-08] MEDS: MULTIVITAMIN TAB PO SCH (09:29)
[2022-11-08] MEDS: ASPIRIN 81 MG ECTAB PO SCH (09:29)
--- NOTE | 2022-11-08 10:52 | Cardiology Consultation ---
Date of Consultation November 08, 2022 Assessment & Plan (1) Left-sided chest pain: (2) Elevated troponin I level: (3) Paroxysmal atrial fibrillation: (4) Mitral regurgitation: Plan 76-year-old female presents emergency department with chest discomfort and minimally elevated troponin. No ischemic ECG changes. Discomfort resolved overnight. Preliminary review of bedside echocardiogram demonstrates normal wall motion. Recommend further restratification with Lexiscan nuclear stress testing. She will be n.p.o. except medications after midnight. No caffeine for 24 hours prior to stress testing. Continue IV heparin for time being with resumption of Eliquis pending review of stress test result. Patient treated with low-dose furosemide 20mg on Wednesday and , spironolactone 12.5 mg on Wednesday, Wednesday, and Wednesday, and diltiazem CD 120 mg daily per review of outpatient records. Unclear whether patient has been compliant with diltiazem prior to admission. Restart medications as blood pressure allows during hospitalization. History of Present Illness Reason for Consultation: Chest pain Requesting Physician: Dr. Chris Alvarez Attending Physician: Kiesha Queen MD History of Present Illness 76-year-old female present to the emergency department with chest discomfort. Describes severe chest pain beginning at approximately 5 PM while seated and watching television. Pain radiated to her left arm persisted for more than 5 hours. She came to the ER where she was treated with IV narcotics and sublingual nitroglycerin. No ischemic ECG changes noted. High-sensitivity troponin minimally elevated. She has an indwelling pain pump for chronic back pain. Her back pain is unchanged remains moderate at this time. Slept well overnight without recurrent chest discomfort. This morning she is somewhat sedated due to administration of IV morphine and oral [place] overnight. Preliminary review of bedside 2D transthoracic echocardiogram demonstrates normal wall motion with moderate mitral regurgitation. Repeat ECG this a.m. with diffuse nonspecific T wave abnormality. Cardiac history includes paroxysmal atrial fibrillation on chronic anticoagulation, hypertension, mitral insufficiency, and chronic tobacco use. Allergies Allergy/AdvReac Type Severity Reaction Status Date / Time chlorhexidine Allergy Mild Rash Verified 11/07/22 20:30 fluconazole [From Diflucan] AdvReac Severe Diarrhea Verified 11/07/22 20:30 (with oral) hydrochlorothiazide AdvReac Intermediate Pancreatiti Verified 11/07/22 20:30 s ondansetron [From Zofran] AdvReac Intermediate Headaches Verified 11/07/22 20:30 Home Medications Medication Instructions Recorded Confirmed Type [id number] 250 1 tab PO Q6H PRN migraines 01/10/20 11/07/22 History mg-250 mg-65 mg tablet (Excedrin Extra Strength) calcium carbonate 600 mg calcium 600 mg PO QAM 01/10/20 11/07/22 History (1,500 mg) tablet (Calcium) multivitamin 1 tab PO QAM 02/05/20 11/07/22 History omeprazole 20 mg tablet,delayed 20 mg PO QPM 01/20/22 11/07/22 History release rizatriptan 10 mg tablet 10 mg PO UD PRN Migraine Headache 01/20/22 11/07/22 History trazodone 100 mg tablet 100 mg PO HS 01/20/22 11/07/22 History apixaban 5 mg tablet (Eliquis) 5 mg PO BID 04/22/22 11/07/22 History hydrocodone 10 mg-acetaminophen 1 tab PO Q4H PRN Pain 04/22/22 11/07/22 History 325 mg tablet promethazine 12.5 mg tablet 12.5 mg PO Q6H PRN Nausea 06/08/22 11/07/22 History naloxone 4 mg/actuation nasal spray 1 spray intranasal Q3M PRN opioid 07/13/22 11/07/22 Rx overdose #2 ea furosemide 20 mg tablet 20 mg PO QAM 11/07/22 11/07/22 History Patient History Medical History Atrial fibrillation Depression Fracture, tibia, with fibula Gastric ulcer Gastritis "Getting under control" GERD (gastroesophageal reflux disease) Hiatal hernia History of blood transfusion Pt reports post-op after hip surgery and lumbar surgery History of syncope Previously followed with cardiology, per Dr Lockhart ([facility]), "syncope in the setting of polypharmacy for severe low back pain." Last seen by cardio 11/2018, to follow up PRN per cardio. Migraine MVP (mitral valve prolapse) Not noted on 03/2016 echo (Mild MR was present) Opiate dependence Pancreatitis Approximately 2018 Postlaminectomy syndrome of lumbosacral region Postlaminectomy syndrome of thoracic region Recurrent UTI Surgical History H/O spinal fusion Extensive [id number] (x2 lumbar fusions) History of anesthesia reaction "severe hypotension" per patient following second back surgery. ([facility] 2017). Review of records shows documentation from anesthesia that hypotension was treated in PACU, BP in post-anesthetic evaluation 92/51. Subsequent intrathecal pain pump (03/19/20): Grade view 1, MAC#3, ETT 6.5 at [facility] without issue noted per post-op anesthesia progress note/discharge summary. History of appendectomy History of cardiac cath Approximately 1994 > no stents History of cataract surgery R/L History of cholecystectomy History of colonoscopy History of dilatation and curettage History of esophagogastroduodenoscopy (EGD) History of hip surgery Right hip History of open reduction and internal fixation (ORIF) procedure Left hip S/P hardware removal Left hip x2 S/P CECILIA-BSO Family History Mother Family history of diabetes mellitus Grandmother (Maternal) Family history of diabetes mellitus Grandmother (Paternal) Family history of diabetes mellitus Other No family history of adverse response to anesthesia Social History Smoking Status: Current every day smoker Tobacco Type: Cigarettes packs per day: 0.5; Cigarettes Per Day: 1/2 pack; Second Hand Exposure: Yes; Do You Dip or Chew Tobacco: No; Tobacco Cessation Education Requested by Patient: No Hx Alcohol Use: No Hx Substance Use: No Preferred Language: Cymro Communication Ability: Effective Visual Impairment: No Limitations Hearing Ability: Normal Resolution Analyst Required: No Beliefs That Will Affect Care: None marital status: Current Living Situation: Spouse Current Living Situation Comment: w/ current occupational status: retired Other Information That Helps Us Care for You: No Feels Safe at Home: Yes Safety Concerns: Feels Safe At This Time Assistive Devices: Walker Review of Systems Review of Systems: All systems reviewed & are unremarkable except as noted in Subjective Physical Exam Constitutional: + ill appearing Respiratory: no respiratory distress, no labored breathing and no retractions Auscultation: no crackles, no rales, no rhonchi and no wheezes Cardiovascular: Rate/Rhythm: regular rate and regular rhythm Heart Sounds: normal S1 and normal S2; no murmur Vessels: radial pulses present; no JVD and no carotid bruit Extremities: + edema (Mild bilateral pedal and ankle edema) Gastrointestinal (Abdomen): Inspection/Auscultation: abdomen normal to inspection and normal bowel sounds; abdomen not distended Percussion/Palpation: abdomen soft; abdomen nontender, no guarding and abdomen not rigid Neurologic: CN's II-XI intact bilaterally and moves all extremities; no focal motor deficits Results & Data Vital Signs (Past 12 Hours) Vital Signs Temp Pulse Pulse Resp BP BP BP 11/08/22 10:15 61 11/08/22 07:56 36.3 C L 71 18 97/58 L 11/08/22 04:00 36.6 C 55 L 16 110/53 L 11/08/22 02:05 64 11/08/22 01:50 11/08/22 02:10 11/08/22 01:50 36.4 C L 61 16 117/59 L 11/08/22 01:00 55 L 14 11/08/22 00:00 58 L 14 94/55 L 11/07/22 23:50 51 L 11/07/22 23:00 60 12 105/51 L Pulse Ox Pulse Ox O2 Del Method O2 Del Method O2 Flow Rate O2 Flow Rate 11/08/22 10:15 11/08/22 07:56 94 Nasal Cannula 4 11/08/22 04:00 100 Room Air 11/08/22 02:05 11/08/22 01:50 Nasal Cannula 2 11/08/22 02:10 94 Nasal Cannula 2 11/08/22 01:50 99 Nasal Cannula 4 11/08/22 01:00 98 11/08/22 00:00 11/07/22 23:50 11/07/22 23:00 98 Laboratory Results Cardiac Enzymes 11/07/22 11/08/22 11/08/22 Range/Units 14:45 00:01 05:53 AST 13 (13-39) U/L Troponin I High Sens 6.8 17.3 H D 13.4 (0-14) pg/ml Coagulation 11/08/22 11/08/22 Range/Units 00:01 05:53 APTT 40.7 H* 37.9 H (21.0-31.0) Seconds Lipids 11/08/22 Range/Units 05:53 Triglycerides 147 (0-150) mg/dl Cholesterol 147 (0-200) mg/dl HDL Cholesterol 34 mg/dl Cholesterol/HDL Ratio 4.3 (0-5) CBC 11/07/22 11/08/22 Range/Units 14:45 05:53 WBC 6.90 9.73 (4.8-10.8) K/ul RBC 4.73 4.51 (4.20-5.40) M/uL Hgb 15.2 14.3 (12.0-16.0) g/dl Hct 46.7 43.9 (37.0-47.0) % Plt Count 155 156 (130-400) K/uL Neut # (Auto) 5.65 7.92 H (1.40-6.50) K/uL Lymph # (Auto) 0.88 L 1.17 L (1.2-3.4) K/uL [place] # (Auto) 0.25 0.51 (0.11-0.59) K/uL Eos # (Auto) 0.03 0.06 (0-0.50) K/uL Baso # (Auto) 0.03 0.04 (0-0.2) K/uL Comprehensive Metabolic Panel 11/07/22 11/08/22 Range/Units 14:45 05:53 Sodium 138 139 (136-145) mmol/L Potassium 4.0 4.0 (3.5-5.1) mmol/L Chloride 104 108 H (98-107) mmol/L Carbon Dioxide 19 L 23 (21-32) mmol/L BUN 23 18 (6-23) mg/dl Creatinine 0.73 0.61 (0.6-1.2) mg/dl Glucose 66 L 70 (70-99(Fasting)) mg/dl Calcium 9.1 8.3 L (8.6-10.3) mg/dl AST 13 (13-39) U/L ALT 6 L (7-52) U/L Alkaline Phosphatase 104 (34-104) U/L Total Protein 6.5 (6.0-8.3) gm/dl Albumin 4.2 (3.4-5.0) gm/dl Intake and Output 11/07/22 11/08/22 11/08/22 22:59 06:59 14:59 Intake Total 600 / 720 120 / 720 Balance 600 / 720 120 / 720 Intake: IV 600 / 600 Left Antecubital 600 / 600 Oral 120 / 120 Other: # Unmeasured Voids 1 Weight 51.2 kg 51.3 kg Weight Measurement Method Built in [facility] Built in [facility]
[2022-11-08 13:10] LABS: Partial Thromboplastin Ratio 2.3
[2022-11-08 13:22] LABS: Partial Thromboplastin Time 64.6 Seconds (21.0-31.0)
--- NOTE | 2022-11-08 14:37 | Hospitalist Progress Note ---
Date of Service November 08, 2022 Assessment & Plan (1) Left-sided chest pain: Plan 76-year-old lady with PMH of PAF on Eliquis, valvular heart disease [moderate to severe MR/mild TR/TTE 2022], chronic back pain status post surgery status post intrathecal pump placement, GERD, mood disorder, ongoing tobacco abuse, significant family history [both parents with heart attack in 50s per patient] presented to the ED 11/07 with complaint of left-sided aching pressure-like sensation on the chest while at rest/watching television which was different from her normal reflux attack. It was relieved by aspirin and nitroglycerin administration per patient. She is being managed for the following: Chest pain rule out ACS Patient presented with chest pain radiating to base of neck, felt like pressure per patient. Relieved with aspirin and nitroglycerin. Admitting troponin negative, second 1 elevated and then again negative. Admitting EKG with no ST elevation. Echo with EF of 60 to 65%, mild concentric LVH, no regional wall motion abnormality. Patient with no further chest pain, repeat troponin and EKG with chest pain. Cardiology evaluated, n.p.o. midnight, no caffeine until stress test, continue with IV heparin in place of her home Eliquis, stress test tomorrow. Other chronic medical conditions: PAF on Eliquis, currently on heparin drip, Eliquis on hold. Per Cardiology, continue home furosemide [20 mg Wednesday and ], Aldactone [12.5 mg Wednesday, Wednesday, Wednesday], and diltiazem [120 mg daily]. Upon checking home meds (physical bottles) at bedside, diltiazem was missing. GERD, continue with home regimen of PPI Chronic back pain status post surgery status post intrathecal pump placement, stable Prophylaxis: Patient already on heparin drip. Full code Patient's Andre and son Melo updated at bedside. Admission and Anticipated Discharge Date Admission Date: November 07, 2022 Subjective Patient seen and examined at bedside as a follow-up of chest pain rule out ACS Patient was lying in bed, on room air, NAD, denies any further chest pain while in the hospital, denies any headache or dizziness or fever or chills or cough or runny nose. Patient planned for stress test tomorrow, n.p.o. at midnight, can continue with diet today. Physical Exam Physical Exam: GENERAL: Alert and oriented x3. NAD, on RA. HEENT: No pallor, no icterus. Pupils equal, round and reactive to light. Oral mucosa moist. NECK: No JVD, no neck masses. HEART: S1 and S2 heard. Regular rate and rhythm. No murmur, no gallop. RESPIRATORY SYSTEM: Normal AP diameter. No accessory muscle use. No wheezing, no crackles. ABDOMEN: Soft, bowel sounds present, nontender, no distention. CENTRAL NERVOUS SYSTEM: No facial droop. Speech is clear. Obeys simple commands. Moves extremities. EXTREMITIES: No edema, no erythema seen. Results & Data Results & Data Vital Signs (Past 12 Hours) Vital Signs Temp Pulse Pulse Resp BP Pulse Ox Pulse Ox 11/08/22 12:37 93 11/08/22 11:02 36.4 C L 65 20 101/60 11/08/22 10:15 61 11/08/22 07:56 36.3 C L 71 18 97/58 L 94 11/08/22 04:00 36.6 C 55 L 16 110/53 L 100 11/08/22 02:05 64 11/08/22 02:10 94 O2 Del Method O2 Del Method O2 Flow Rate O2 Flow Rate 11/08/22 12:37 Nasal Cannula 2 11/08/22 11:02 Room Air 11/08/22 10:15 11/08/22 07:56 Nasal Cannula 4 11/08/22 04:00 Room Air 11/08/22 02:05 11/08/22 02:10 Nasal Cannula 2
[2022-11-08] MEDS: PANTOprazole 40 MG TAB PO SCH (20:08)
[2022-11-08] MEDS: traZODone HCL 100 MG TAB PO SCH (20:08)
[2022-11-09 04:54] LABS: Basophils # (auto) 0.04 K/uL (0-0.2); Basophils % (auto) 0.5 %; Eosinophils # (auto) 0.14 K/uL (0-0.50); Eosinophils % (auto) 1.9 %; Hematocrit (blood only) 43.7 % (37.0-47.0); Hemoglobin 14.4 g/dl (12.0-16.0); Immature Granulocytes # (auto) 0.03 K/uL (0.01-0.20); Immature Granulocytes % (auto) 0.4 %; Lymphocytes # (auto) 1.45 K/uL (1.2-3.4); Lymphocytes % (auto) 19.5 %; Mean Corpuscular Hemoglobin 31.9 pg (25.0-34.0); Mean Corpuscular Volume 96.9 fL (80.0-100.0); Mean Platelet Volume 10.9 fL (9.4-12.4); Monocytes # (auto) 0.47 K/uL (0.11-0.59); Monocytes % (auto) 6.3 %; Neutrophils % (auto) 71.4 %; Platelet Count 142 K/uL (130-400); RDW Standard Deviation 50.4 fL (36.4-46.3); Red Blood Count 4.51 M/uL (4.20-5.40); White Blood Count 7.43 K/ul (4.8-10.8)
[2022-11-09 05:01] LABS: BUN Creatinine Ratio 16.1 (10-20); Calcium 8.5 mg/dl (8.6-10.3); Creatinine Clr Calc Pharmacy 54.6 ml/min; Est GFR (African American) 100.8 ml/min; Magnesium 1.9 mg/dl (1.7-2.4); Phosphorus 2.5 mg/dl (2.5-4.9); Potassium 3.9 mmol/L (3.5-5.1)
[2022-11-09 05:27] LABS: Partial Thromboplastin Ratio 2.7
[2022-11-09] MEDS: HEPARIN SODIUM/DEXTROSE 25,000 UNITS/500 ML BAG IV SCH (05:49)
[2022-11-09] MEDS: HYDROCODONE/ACETAMOPHEN 5/325MG TAB PO PRN ×3 (05:49→17:02)
[2022-11-09 05:51] LABS: Partial Thromboplastin Time 77.4 Seconds (21.0-31.0)
[2022-11-09] MEDS: MoRPHine SULFATE 2 MG/ML CARP IV PRN (07:55)
[2022-11-09] MEDS: ASPIRIN 81 MG ECTAB PO SCH (07:56)
[2022-11-09] MEDS: MULTIVITAMIN TAB PO SCH (07:56)
[2022-11-09] MEDS ORDERED: REGADENOSON 0.4 MG/5 ML SYR IV ONE (08:51)
[2022-11-09] MEDS: ACETAMINOPHEN 325 MG TAB PO PRN (12:23)
[2022-11-09 13:55] LABS: Partial Thromboplastin Time 57.3 Seconds (21.0-31.0)
--- NOTE | 2022-11-09 16:11 | Cardiology Progress Note ---
Date of Service November 09, 2022 Assessment & Plan (1) Left-sided chest pain: Plan: * Equivocal nuclearWith patient having developed chest discomfort after the administration of Lexiscan, with mild equivocal EKG changes, and no focal reversible perfusion defects. Test results discussed with patient at length, and options discussed including ongoing medical management or invasive cardiac catheterization. At this time, patient is hesitant to proceed with cardiac catheterization and she would like to proceed with a trial of ongoing observation. * Patient not on a beta-jitendra as her heart rate is already in the 60s and her blood pressure is well controlled without such * Continue aspirin * Start atorvastatin 10 mg daily, LDL cholesterol 84 mg/dL (2) Mitral regurgitation: Plan: * Moderate to severe right regurgitation noted on echocardiogram. Volume status stable. Continue to monitor. (3) Paroxysmal atrial fibrillation: Plan: * Patient is in sinus rhythm. Currently Eliquis is on hold in favor of heparin infusion while determination is made with regards to need for invasive procedure. Admission and Anticipated Discharge Date Admission Date: November 08, 2022 Subjective Patient seen in cardiology follow up prior to during and after the nuclear stress test. Review of Systems Review of Systems: All systems reviewed & are unremarkable except as noted in HPI & below Physical Exam Constitutional: no acute distress Respiratory: no respiratory distress, no labored breathing and no retractions Auscultation: no crackles, no rales, no rhonchi and no wheezes Cardiovascular: Rate/Rhythm: regular rate and regular rhythm Heart Sounds: normal S1, normal S2 and + murmur (1/6 systolic murmur) Vessels: radial pulses present; no JVD and no carotid bruit Extremities: + edema (Mild bilateral pedal and ankle edema) Gastrointestinal (Abdomen): Inspection/Auscultation: abdomen normal to inspection and normal bowel sounds; abdomen not distended Percussion/Palpation: abdomen soft; abdomen nontender, no guarding and abdomen not rigid Neurologic: PERRL, EOMI, accommodation nl, no face palsy, no dysarthria Results & Data Vital Signs (Past 12 Hours) Vital Signs Temp Pulse Pulse Resp BP Pulse Ox O2 Del Method 11/09/22 12:17 36.3 C L 67 20 130/68 93 Nasal Cannula 11/09/22 07:47 36.4 C L 56 L 17 120/66 93 Nasal Cannula 11/09/22 06:16 92 Nasal Cannula 11/09/22 06:15 90 Room Air O2 Flow Rate 11/09/22 12:17 1 11/09/22 07:47 1.0 11/09/22 06:16 0.5 11/09/22 06:15 Laboratory Results Coagulation 11/09/22 11/09/22 Range/Units 04:21 12:14 APTT 77.4 H* 57.3 H* (21.0-31.0) Seconds CBC 11/09/22 Range/Units 04:21 WBC 7.43 (4.8-10.8) K/ul RBC 4.51 (4.20-5.40) M/uL Hgb 14.4 (12.0-16.0) g/dl Hct 43.7 (37.0-47.0) % Plt Count 142 (130-400) K/uL Neut # (Auto) 5.30 (1.40-6.50) K/uL Lymph # (Auto) 1.45 (1.2-3.4) K/uL [place] # (Auto) 0.47 (0.11-0.59) K/uL Eos # (Auto) 0.14 (0-0.50) K/uL Baso # (Auto) 0.04 (0-0.2) K/uL Comprehensive Metabolic Panel 11/09/22 Range/Units 04:21 Sodium 140 (136-145) mmol/L Potassium 3.9 (3.5-5.1) mmol/L Chloride 106 (98-107) mmol/L Carbon Dioxide 28 (21-32) mmol/L BUN 10 (6-23) mg/dl Creatinine 0.62 (0.6-1.2) mg/dl Glucose 85 (70-99(Fasting)) mg/dl Calcium 8.5 L (8.6-10.3) mg/dl
--- NOTE | 2022-11-09 16:19 | Myocardial Perfusion Study ---
Date of Service November 09, 2022 Myocardial Perfusion Study [facility] Myocardial Perfusion Study Report Procedure: 1. Myocardial perfusion study performed in multiple views/images 2. Lexiscan pharmacologic stress ECG Indications: Chest pain Ordering physician: Ted Shah DO Procedural details: For the stress portion of the study, Lexiscan 0.4 mg was intravenously administered followed by a saline flush. This was followed by 32 mCi of technetium 99m Cardiolite, injected at 11:12 AM on 11/09/2022. 30 minutes following the injection, imaging of the heart was performed in multiple projections. For the rest portion of the study, 10.5 mCi technetium 99m Cardiolite was injected intravenously at 9:22AM on 11/09/22. 1 hour following the injection, imaging of the heart was performed in the same projections. Lexiscan stress ECG: Resting ECG demonstrated: Sinus bradycardia at 58 bpm with nonspecific repolarization changes Maximum heart rate: 98 bpm Maximal, age-predicted heart rate: 68% Resting blood pressure: 128/62 mmHg Maximum blood pressure: 138/[address] changes: Equivocal 0.5-[address] segment depression was observed in the inferior and lateral leads after the administration of Lexiscan 0.4 mg intravenously Arrhythmia: None observed Symptoms: Patient developed symptoms of chest discomfort with the administration of Lexiscan. Ultimately symptoms resolved with the administration of 0.4 mg of sublingual nitroglycerin and with patient having received caffeinated cola. Findings: Rotating raw imaging demonstrated no significant lung uptake. There is no significant motion artifact. Attenuation was noted adjacent to the inferior, inferolateral wall. Heart size appeared normal. Myocardial perfusion demonstrated normal perfusion on both stress and rest images. Ejection fraction: > 70% % Wall motion: Normal wall motion No significant transient ischemic dilation. Impression: Equivocal pharmacologic myocardial perfusion imaging study with symptoms of chest discomfort observed after the administration of Lexiscan (regadenoson), equivocal EKG changes. The stress and rest myocardial perfusion images were normal. Patient received 0.4 mg of sublingual nitroglycerin as well as caffeinated cola with relief of her symptoms late in the post-rest recovery interval. Patient left the department in stable condition offering no complaints with resolution of her symptoms.
[2022-11-09] MEDS: ATORVASTATIN 10 MG TAB PO SCH (17:02)
--- NOTE | 2022-11-09 18:12 | Hospitalist Progress Note ---
Date of Service November 09, 2022 Assessment & Plan (1) Left-sided chest pain: Plan 76-year-old lady with PMH of PAF on Eliquis, valvular heart disease [moderate to severe MR/mild TR/TTE 2022], chronic back pain status post surgery status post intrathecal pump placement, GERD, mood disorder, ongoing tobacco abuse, significant family history [both parents with heart attack in 50s per patient] presented to the ED 11/07 with complaint of left-sided aching pressure-like sensation on the chest while at rest/watching television which was different from her normal reflux attack. It was relieved by aspirin and nitroglycerin administration per patient. She is being managed for the following: Chest pain rule out ACS Patient presented with chest pain radiating to base of neck, felt like pressure per patient. Relieved with aspirin and nitroglycerin. Admitting troponin negative, second 1 elevated and then again negative. Admitting EKG with no ST elevation. Echo with EF of 60 to 65%, mild concentric LVH, no regional wall motion abnormality. Patient with no further chest pain, repeat troponin and EKG with chest pain. Cardiology evaluated, Status post stress test 11/09, equivocal. Plan to continue with heparin drip. Added atorvastatin. Other chronic medical conditions: PAF on Eliquis, currently on heparin drip, Eliquis on hold. Per Cardiology, continue home furosemide [20 mg Wednesday and ], Aldactone [12.5 mg Wednesday, Wednesday, Wednesday], and diltiazem [120 mg daily]. Upon checking home meds (physical bottles) at bedside, diltiazem was missing. GERD, continue with home regimen of PPI Chronic back pain status post surgery status post intrathecal pump placement, stable Prophylaxis: Patient already on heparin drip. Full code Admission and Anticipated Discharge Date Admission Date: November 08, 2022 Subjective Patient seen and examined at bedside as a follow-up of chest pain rule out ACS Patient was lying in bed, on room air, NAD, denies any further chest pain while in the hospital, denies any headache or dizziness or fever or chills or cough or runny nose. Patient is status post stress test. Discussed with cardiology, equivocal stress test. Plan to continue with heparin drip for now. Patient can have diet and resume her regular activity, continue to monitor for chest pain over telemetry. Physical Exam Physical Exam: GENERAL: Alert and oriented x3. NAD, on RA. HEENT: No pallor, no icterus. Pupils equal, round and reactive to light. Oral mucosa moist. NECK: No JVD, no neck masses. HEART: S1 and S2 heard. Regular rate and rhythm. No murmur, no gallop. RESPIRATORY SYSTEM: Normal AP diameter. No accessory muscle use. No wheezing, no crackles. ABDOMEN: Soft, bowel sounds present, nontender, no distention. CENTRAL NERVOUS SYSTEM: No facial droop. Speech is clear. Obeys simple commands. Moves extremities. EXTREMITIES: No edema, no erythema seen. Results & Data Results & Data Vital Signs (Past 12 Hours) Vital Signs Temp Pulse Pulse Resp BP Pulse Ox O2 Del Method 11/09/22 16:07 36.6 C 63 19 137/73 97 Nasal Cannula 11/09/22 12:17 36.3 C L 67 20 130/68 93 Nasal Cannula 11/09/22 07:47 36.4 C L 56 L 17 120/66 93 Nasal Cannula 11/09/22 06:16 92 Nasal Cannula 11/09/22 06:15 90 Room Air O2 Flow Rate 11/09/22 16:07 1.0 11/09/22 12:17 1 11/09/22 07:47 1.0 11/09/22 06:16 0.5 11/09/22 06:15
[2022-11-09] MEDS: PANTOprazole 40 MG TAB PO SCH (20:10)
[2022-11-09] MEDS: traZODone HCL 100 MG TAB PO SCH (20:10)
[2022-11-09] MEDS ORDERED: POTASSIUM CHLORIDE CRTAB 20 MEQ TABCR PO STA (21:57)
[2022-11-09] MEDS ORDERED: MAGNESIUM SULFATE / D5W 1 GM/100 ML BAG IV ONE (21:57)
[2022-11-10] MEDS: HYDROCODONE/ACETAMOPHEN 5/325MG TAB PO PRN ×2 (01:00→08:35)
[2022-11-10] MEDS: ACETAMINOPHEN 325 MG TAB PO PRN (03:51)
--- NOTE | 2022-11-10 06:51 | Electrocardiogram Report ---
Test Reason : Blood Pressure : / mmHG Vent. Rate : 078 BPM Atrial Rate : 078 BPM P-R Int : 144 ms QRS Dur : 074 ms QT Int : 384 ms P-R-T Axes : 040 011 063 degrees QTc Int : 437 ms Normal sinus rhythm Low voltage QRS Nonspecific T wave abnormality Abnormal ECG When compared with ECG of 28-JUN-2022 19:31, Criteria for Septal infarct are no longer Present Confirmed by Mani Barroso ([id number]) on 11/10/2022 6:51:26 AM Referred By: REFERRED SELF Confirmed By:Mani Barroso
--- NOTE | 2022-11-10 07:09 | Electrocardiogram Report ---
Test Reason : Blood Pressure : / mmHG Vent. Rate : 068 BPM Atrial Rate : 068 BPM P-R Int : 150 ms QRS Dur : 066 ms QT Int : 370 ms P-R-T Axes : 044 009 093 degrees QTc Int : 393 ms Normal sinus rhythm Low voltage QRS Septal infarct , age undetermined Nonspecific T wave abnormality Abnormal ECG When compared with ECG of 07-NOV-2022 19:46, Septal infarct is now Present Confirmed by Mani Barroso ([id number]) on 11/10/2022 7:09:16 AM Referred By: REFERRED SELF Confirmed By:Mani Barroso
[2022-11-10 08:10] LABS: Partial Thromboplastin Ratio 2.4
[2022-11-10 08:11] LABS: Partial Thromboplastin Time 67.2 Seconds (21.0-31.0)
[2022-11-10] MEDS: MULTIVITAMIN TAB PO SCH (08:35)
[2022-11-10] MEDS: ASPIRIN 81 MG ECTAB PO SCH (08:35)
[2022-11-10] MEDS: ATORVASTATIN 10 MG TAB PO SCH (09:10)
[2022-11-10] MEDS: HEPARIN SODIUM/DEXTROSE 25,000 UNITS/500 ML BAG IV SCH (12:07)
--- NOTE | 2022-11-10 12:36 | Cardiology Progress Note ---
Date of Service November 10, 2022 Assessment & Plan (1) Left-sided chest pain: Plan: * Equivocal nuclear stress wiith patient having developed chest discomfort after the administration of Lexiscan, with mild equivocal EKG changes, and no focal reversible perfusion defects. Test results discussed with patient at length, and options discussed including ongoing medical management or invasive cardiac catheterization. At this time, patient is hesitant to proceed with cardiac catheterization and she would like to proceed with a trial of ongoing observation. * Patient not on a beta-jitendra as her heart rate is already in the 60s and her blood pressure is well controlled without such * Continue aspirin * Start trial of Imdur 30 mg daily * Start atorvastatin 10 mg daily, LDL cholesterol 84 mg/dL (2) Mitral regurgitation: Plan: * Moderate to severe right regurgitation noted on echocardiogram. Volume status stable. Continue to monitor. (3) Paroxysmal atrial fibrillation: Plan: * Patient is in sinus rhythm. Discontinue heparin infusion and resume Eliquis this evening. Patient eager for discharge. If feels well this afternoon, I think this is acceptable. Admission and Anticipated Discharge Date Admission Date: November 08, 2022 Subjective Patient seen in cardiology follow-up. No symptoms suggestive angina this morning. Telemetry reveals stable findings of sinus rhythm in the 50s to 70s. Physical Exam Constitutional: no acute distress Respiratory: no respiratory distress, no labored breathing and no retractions Auscultation: no crackles, no rales, no rhonchi and no wheezes Cardiovascular: Rate/Rhythm: regular rate and regular rhythm Heart Sounds: normal S1, normal S2 and + murmur (1/6 systolic murmur) Vessels: radial pulses present; no JVD and no carotid bruit Extremities: + edema (Mild bilateral pedal and ankle edema) Gastrointestinal (Abdomen): Inspection/Auscultation: abdomen normal to inspection and normal bowel sounds; abdomen not distended Percussion/Palpation: abdomen soft; abdomen nontender, no guarding and abdomen not rigid Neurologic: PERRL, EOMI, accommodation nl, no face palsy, no dysarthria Results & Data Vital Signs (Past 12 Hours) Vital Signs Temp Pulse Pulse Pulse Resp BP Pulse Ox 11/10/22 11:07 36.6 C 61 16 136/68 95 11/10/22 07:47 59 L 11/10/22 07:39 36.3 C L 56 L 18 126/70 96 11/10/22 02:00 11/10/22 02:58 36.6 C 52 L 16 123/75 95 Pulse Ox O2 Del Method O2 Del Method O2 Flow Rate O2 Flow Rate 11/10/22 11:07 Room Air 11/10/22 07:47 11/10/22 07:39 Nasal Cannula 2 11/10/22 02:00 95 Nasal Cannula 0.5 11/10/22 02:58 Nasal Cannula 1 Laboratory Results Coagulation 11/09/22 11/10/22 Range/Units 12:14 05:35 APTT 57.3 H* 67.2 H* (21.0-31.0) Seconds
[2022-11-10] MEDS ORDERED: ISOSORBIDE MONO EXTENDED REL 30 MG TABCR PO SCH (12:45)
--- NOTE | 2022-11-10 13:16 | Discharge Summary ---
Date of Service November 10, 2022 Admission HPI Per Admitting Provider History obtained from patient and records. Medical history significant for PAF on Eliquis, valvular heart disease (moderate to severe MR/mild TR, TTE 2022), chronic back pain status post surgery status post intrathecal pump placement, GERD, mood disorder, ongoing tobacco abuse. Last confinement June 2022 for atypical chest pain. Patient was watching television few hours ago when she experienced achy left- sided chest pain going to her neck with some shortness of breath. Different from reflux attack. No unusual cough symptoms. EMS called to patient's home. Chest pain relieved by aspirin and nitroglycerin administration. Patient currently comfortable. 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 NAD, on RA. HEENT: No pallor, no icterus. Pupils equal, round and reactive to light. Oral mucosa moist. NECK: No JVD, no neck masses. HEART: S1 and S2 heard. Regular rate and rhythm. No murmur, no gallop. RESPIRATORY SYSTEM: Normal AP diameter. No accessory muscle use. No wheezing, no crackles. ABDOMEN: Soft, bowel sounds present, nontender, no distention. CENTRAL NERVOUS SYSTEM: No facial droop. Speech is clear. Obeys simple commands. Moves extremities. EXTREMITIES: No edema, no erythema seen. Discharge Data Allergies Allergy/AdvReac Type Severity Reaction Status Date / Time chlorhexidine Allergy Mild Rash Verified 11/07/22 20:30 fluconazole [From Diflucan] AdvReac Severe Diarrhea Verified 11/07/22 20:30 (with oral) hydrochlorothiazide AdvReac Intermediate Pancreatiti Verified 11/07/22 20:30 s ondansetron [From Zofran] AdvReac Intermediate Headaches Verified 11/07/22 20:30 Consultations 11/07/22 21:59 ED Decision to Admit Stat 11/08/22 02:10 Consult Cardiology Routine Hospital Course (1) Left-sided chest pain: Plan 76-year-old lady with PMH of PAF on Eliquis, valvular heart disease [moderate to severe MR/mild TR/TTE 2022], chronic back pain status post surgery status post intrathecal pump placement, GERD, mood disorder, ongoing tobacco abuse, significant family history [both parents with heart attack in 50s per patient] presented to the ED 11/07 with complaint of left-sided aching pressure-like sensation on the chest while at rest/watching television which was different from her normal reflux attack. It was relieved by aspirin and nitroglycerin administration per patient. She was managed for the following: Chest pain rule out ACS Patient presented with chest pain radiating to base of neck, felt like pressure per patient. Relieved with aspirin and nitroglycerin. Admitting troponin negative, second 1 elevated and then again negative. Admitting EKG with no ST elevation. Echo with EF of 60 to 65%, mild concentric LVH, no regional wall motion abnormality. Patient with no further chest pain, cardio evaled, stress test 11/09 equivocal. Added are atorvastatin, aspirin, Imdur. Continue Eliquis as prior. Follow-up with cardiology as prior. Other chronic medical conditions: PAF on Eliquis, currently on heparin drip, Eliquis on hold. Per Cardiology, continue home furosemide [20 mg Wednesday and ], Aldactone [12.5 mg Wednesday, Wednesday, Wednesday], and diltiazem [120 mg daily]. Upon checking home meds (physical bottles) at bedside, diltiazem was missing. GERD, continue with home regimen of PPI Chronic back pain status post surgery status post intrathecal pump placement, stable Prophylaxis: pt to resume home eliquis Full code Follow-up with your primary care physician within a week time and likely you will need labs CBC/CMP/magnesium/phosphorus. Cardiology evaluated you while in the hospital, you underwent stress test. Your cardiac medication has been optimized. You are started on Imdur and atorvastatin. You can continue taking your home Eliquis as prior. Follow up with cardiology in 2-4 weeks time; your Outpatient cardiac meds have been started. Take your medications as prescribed. Please make sure that you are able to get your medications today by calling your pharmacy before you leave the hospital so that your treatment continuity is not broken. Home Health Attestation I certify that this patient is under my care and that I, or a physicians outpatient physical therapist assistant working with me, had a face to-face encounter that meets the home health [id number] encounter requirements with this patient. The encounter with the patient was in whole, or in part, for the following medical condition, which is the primary reason for home health care (list medical condition): I certify that, based on my findings, the following services are medically necessary home health services: My clinical findings support the need for the above services because: Further, I certify that my clinical findings support that this patient is homebound (i.e. absences from home require considerable and taxing effort and are for medical reasons or catholic services or infrequently or of short duration when for other reasons) because: Certification for Home Health Services: Based on the above findings, I certify that this patient is confined to the home and needs intermittent residential care, physical therapy and/or speech therapy or continues to need occupational therapy. The patient is under my care, and I have initiated the establishment of the plan of care. This patient will be followed by a physician who will periodically review the plan of care. Total Time Total Time Spent Total Time Spent (In Minutes): 45 Discharge Plan Discharge Items Patient Disposition: Home - Self-Care Reason For Visit: CP Discharge Diagnosis: Chest pain rule out ACS Activity: Resume your previous activity Non-emergency contact: Primary Care Provider Call non-emergency contact if: you have any medication questions Follow-up/Referrals: Casey Rodgers [Primary Care Provider] - Diet: Heart Healthy Addtl Attending Provider Instructions: Follow-up with your primary care physician within a week time and likely you will need labs CBC/CMP/magnesium/phosphorus. Cardiology evaluated you while in the hospital, you underwent stress test. Your cardiac medication has been optimized. You are started on Imdur and atorvastatin. You can continue taking your home Eliquis as prior. Follow up with cardiology in 2-4 weeks time; your Outpatient cardiac meds have been started. Take your medications as prescribed. Please make sure that you are able to get your medications today by calling your pharmacy before you leave the hospital so that your treatment continuity is not broken. Pending Studies at Discharge: No Stand-Alone Forms: My [facility], Smoking Cessation Medications and DC Order Prescriptions: New atorvastatin 10 mg Tablet 10 mg PO QAM Qty: 30 0RF isosorbide mononitrate 30 mg Tablet Extended Release 24 Hr 30 mg PO QAM Qty: 30 0RF nitroglycerin [Nitrostat] 0.4 mg Tablet, Sublingual 0.4 mg sublingual UD PRN (Reason: chest pain) Qty: 30 0RF Rx Instructions: 1 tab every 5 min for chest pain; max of three doses. aspirin 81 mg Tablet,Delayed Release (Dr/Ec) 81 mg PO QAM Qty: 30 0RF spironolactone [Aldactone] 25 mg tablet 12.5 mg PO MOWEFR Qty: 30 0RF Continued calcium carbonate [Calcium 600] 600 mg calcium (1,500 mg) tablet 600 mg PO QAM Excedrin Extra Strength 250-250-65 mg tablet 1 tab PO Q6H PRN (Reason: migraines) Eliquis 5 mg tablet 5 mg PO BID naloxone 4 mg/actuation spray,non-aerosol 1 spray intranasal Q3M PRN (Reason: opioid overdose) Qty: 2 0RF Rx Instructions: admin 1 dose into 1 nostril; alternate nostrils w each dose until assistance arrives hydrocodone-acetaminophen 10-325 mg tablet 1 tab PO Q4H PRN (Reason: Pain) promethazine 12.5 mg tablet 12.5 mg PO Q6H PRN (Reason: Nausea) multivitamin Tablet 1 tab PO QAM trazodone 100 mg Tablet 100 mg PO HS omeprazole 20 mg Tablet,Delayed Release (Dr/Ec) 20 mg PO QPM rizatriptan 10 mg Tablet 10 mg PO UD PRN (Reason: Migraine Headache) Rx Instructions: take 1 tab at onset of headache; if no relief may repeat 1 tab after at least 2 hrs; max = 3 tabs/24 hr Changed furosemide 20 mg tablet 20 mg PO MOTH Qty: 30 0RF Discharge Orders: Discharge Order (Routine); Ordered 11/10/22 Ordered By: Kiesha Queen Admission Data Admit Date/Time: 11/08/22 01:13 Attending Provider: Kiesha Queen Admit Provider: Chris Alvarez Primary Care Provider: Casey Rodgers Other Providers: Chris Alvarez ; Hannah Hinojosa ; Mac Christianson ; Sterling Lockhart ; Ted Shah ; James Cordero ; Cade Acharya ; Rhiannon Leal ; Claire Diaz ; Hannah Fuentes ; Mick Tyson ; Hilda Guardado
[2022-11-10] MEDS ORDERED: APIXABAN 5 MG TABLET PO SCH (21:00)
--- NOTE | 2022-11-11 08:33 | Coding Query ---
CHEST PAIN To promote full compliance with coding requirements relating to patient care physician participation is requested in all cases of security attendant uncertainty. Please assist us with the question(s) below: Please list a more specific chest pain diagnosis or cause of chest pain if known by placing an X within the parenthesis (x): (x ) Atypical Chest Pain ( ) Chest Wall Pain ( ) Midsternal Chest Pain ( ) Musculoskeletal Chest Pain ( ) Pleuritic Chest Pain ( ) Substernal Chest Pain ( ) Costochondral Chest Pain ( ) Other (please Specify) Thank you Berenice BURNS
--- NOTE | 2022-11-11 22:57 | Electrocardiogram Report ---
Test Reason : Blood Pressure : / mmHG Vent. Rate : 059 BPM Atrial Rate : 059 BPM P-R Int : 150 ms QRS Dur : 072 ms QT Int : 418 ms P-R-T Axes : 087 008 090 degrees QTc Int : 413 ms Sinus bradycardia Low voltage QRS Septal infarct (cited on or before 08-NOV-2022) Nonspecific T wave abnormality Abnormal ECG When compared with ECG of 08-NOV-2022 08:53, No significant change Confirmed by Mani Barroso ([id number]) on 11/11/2022 10:56:57 PM Referred By: REFERRED SELF Confirmed By:Mani Barroso
== END 2022-11-10 14:44 | disposition home or self-care (01) | DRG 313 ==
LOC: ED 19:33 → 4W 19:33

== ENCOUNTER 2023-01-31 13:50 | Inpatient (IN) ==
--- NOTE | 2023-01-31 14:35 | Emergency Department Note ---
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 Reports of the past 2 weeks been having some nausea issues. Reports a bit of diffuse mid abdominal discomfort but no vomiting. Denies any falls. Report family noted today a large area of bruising to the lower back region. Denies fever or sick contacts with similar symptoms. Denies significant chest pain or shortness of breath. Has chronic back pain which persists. Has a pain pump for this. Has been taking her medications including Eliquis which he took last this morning. Reports she might of had an ulcer before and may be a little bit of bleeding but not quite like this and its been sometime if anything. Chronic leg swelling and compression stockings persist. PAST MEDICAL HISTORY: As noted above MEDICATIONS: Reviewed home medication SOCIAL HISTORY: Lives at home with PHYSICAL EXAM: GENERAL: alert and oriented in no acute distress on stretcher Head: normocephalic and atraumatic EYES: No injection, discharge or icterus. NECK: Trachea midline. ENT: Mucous membranes pink and moist. LUNGS: Airway patent. No retractions. Breath sounds clear anterior HEART: Regular rate and rhythm. No chest wall tenderness ABDOMEN: Soft and non-tender, without guarding or rebound. Patient with a left anterior abdominal wall subcutaneous reported pain pump present without wound or erythema BACK: Some mild lower lumbar and SI tenderness without midline step-off. There is diffuse approximately 16 cm area of contusion of the lower lumbar region. No significant decubitus ulcerations noted. 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 SKIN: Acyanotic, warm, dry, without rashes EXTREMITIES: Without obvious deformity plus edema of the lower extremities compression stockings in place. Not weeping. NEUROLOGICAL: No focal deficits. No aphasia. No facial droop or slurred speech. EK bpm normal sinus rhythm. No PVC or PAC. No acute ST segment elevation or depression with nonspecific lateral T wave changes. QTc 388. CONTINUOUS CARDIAC MONITORING: was ordered and showed a heart rate of 60s-70s bpm in normal sinus rhythm Patient's laboratory studies and imaging reviewed. Differential includes Diverticulosis, AVM, coagulopathy, colitis, inflammatory bowel disease, malignancy, [place] tear, esophagitis, peptic ulcer disease, variceal bleed, gastritis, epistaxis, fissure, hemorrhoids, as well as other pathologies. IMPRESSION/MEDICAL DECISION MAKING: Patient on Eliquis for A-fib with several days of bright red blood per rectum. Some mild diffuse abdominal tenderness noted as well as interestingly some lumbar bruising. Denies any trauma. History of chronic back pain. Has had some nausea issue. Given some Reglan here. Chronic leg swelling and as such we will try to avoid significant fluid administration. Denies near syncope or ch est pain or shortness of breath. Is on a PPI at home. Given additional dose of IV PPI here but seems likely more so to be a lower GI bleed if anything. Blood work here looks without leukocytosis. Stable hemoglobin of 13.9. Normal platelet count. No significant electrolyte abnormalities BUN only 29. No renal dysfunction. Noes hepatitis or pancreatitis although lipase is minimally elevated 89. Troponin normal. Doubt ACS or cardiac disease. CT scan of the abdomen pelvis per radiology without significant acute findings although bit limited with habitus and artifact from hardware. Patient did give a little bit of fentanyl for some abdominal discomfort. Do recommend given her anticoa gulation use and reported significant rectal bleeding as well as discomfort that we observe her to ensure resolution and see if she may need further GI procedures. Patient in agreement. Hospitalist team contacted DIAGNOSIS: Bright red blood per rectum, long-term anticoagulation, abdominal pain, chronic back pain, back contusion DISPOSITION: Hospitalist will evaluate Patient was agreeable with this plan. Past Med/Surg History Medical History Atrial fibrillation Depression Fracture, tibia, with fibula Gastric ulcer Gastritis "Getting under control" GERD (gastroesophageal reflux disease) Hiatal hernia History of blood transfusion Pt reports post-op after hip surgery and lumbar surgery History of syncope Previously followed with cardiology, per Dr Lockhart ([facility]), "syncope in the setting of polypharmacy for severe low back pain." Last seen by cardio 11/2018, to follow up PRN per cardio. Migraine MVP (mitral valve prolapse) Not noted on 03/2016 echo (Mild MR was present) Opiate dependence Pancreatitis Approximately 2018 Postlaminectomy syndrome of lumbosacral region Postlaminectomy syndrome of thoracic region Recurrent UTI Surgical History H/O spinal fusion Extensive [id number] (x2 lumbar fusions) History of anesthesia reaction "severe hypotension" per patient following second back surgery. ([facility] 2017). Review of records shows documentation from anesthesia that hypotension was treated in PACU, BP in post-anesthetic evaluation 92/51. Subsequent intrathecal pain pump (03/19/20): Grade view 1, MAC#3, ETT 6.5 at [facility] without issue noted per post-op anesthesia progress note/discharge summary. History of appendectomy History of cardiac cath Approximately 1994 > no stents History of cataract surgery R/L History of cholecystectomy History of colonoscopy History of dilatation and curettage History of esophagogastroduodenoscopy (EGD) History of hip surgery Right hip History of open reduction and internal fixation (ORIF) procedure Left hip S/P hardware removal Left hip x2 S/P CECILIA-BSO Family History Mother Family history of diabetes mellitus Grandmother (Maternal) Family history of diabetes mellitus Grandmother (Paternal) Family history of diabetes mellitus Other No family history of adverse response to anesthesia Social History Smoking Status: Current every day smoker Tobacco Type: Cigarettes packs per day: 0.5; Cigarettes Per Day: 1/2 pack; Second Hand Exposure: Yes; Do You Dip or Chew Tobacco: No; Hx Alcohol Use: No Hx Substance Use: No Preferred Language: Nauruan Communication Ability: Effective Visual Impairment: No Limitations Hearing Ability: Normal Physical Medicine Specialist Required: No Beliefs That Will Affect Care: None marital status: Current Living Situation: Spouse Current Living Situation Comment: w/ current occupational status: retired Feels Safe at Home: Yes Assistive Devices: Walker Allergies Allergies Allergy/AdvReac Type Severity Reaction Status Date / Time chlorhexidine Allergy Mild Rash Verified 01/31/23 17:22 fluconazole [From Diflucan] AdvReac Severe Diarrhea Verified 01/31/23 17:22 (with oral) hydrochlorothiazide AdvReac Intermediate Pancreatiti Verified 01/31/23 17:22 s ondansetron [From Zofran] AdvReac Intermediate Headaches Verified 01/31/23 17:22 Home Meds Home Medications Medication Instructions Recorded Confirmed multivitamin 1 tab PO QAM 02/05/20 01/31/23 omeprazole 20 mg tablet,delayed 20 mg PO QPM 01/20/22 01/31/23 release rizatriptan 10 mg tablet 10 mg PO UD PRN Migraine Headache 01/20/22 01/31/23 trazodone 100 mg tablet 100 mg PO HS 01/20/22 01/31/23 apixaban 5 mg tablet (Eliquis) 5 mg PO BID 04/22/22 01/31/23 hydrocodone 10 mg-acetaminophen 1 tab PO Q6 PRN Pain 04/22/22 01/31/23 325 mg tablet promethazine 12.5 mg tablet 12.5 mg PO Q6H PRN Nausea 06/08/22 01/31/23 diltiazem HCl 120 mg 120 mg PO DAILY 12/01/22 01/31/23 capsule,extended release 24 hr Hydromorphone Pain Pump 0 mg INJ DIRECTED 01/31/23 01/31/23 kmivsfv-vtiltttcvuxfr-pkctauhn 250 2 tab PO Q6H PRN Migraine Headache 01/31/23 01/31/23 mg-250 mg-65 mg tablet (Excedrin Migraine) [id number]-andqqojcqagpz-bydbxbgs 1 tab PO TID PRN Migraine Headache 01/31/23 01/31/23 50 mg-325 mg-40 mg tablet calcium carbonate 600 mg-vitamin 1 tab PO DAILY 01/31/23 01/31/23 D3 10 mcg (400 unit) tablet (Calcium 600 + D(3)) furosemide 20 mg tablet (Lasix) 20 mg PO DAILY 01/31/23 01/31/23 quetiapine 100 mg tablet 100 mg PO HS 01/31/23 01/31/23 Previous Rx's Medication Instructions Recorded aspirin 81 mg tablet,delayed 81 mg PO QAM #30 tabs 11/10/22 release atorvastatin 10 mg tablet 10 mg PO QAM #30 tabs 11/10/22 isosorbide mononitrate 30 mg 30 mg PO QAM #30 tabs 11/10/22 tablet,extended release 24 hr Results & Data (ED) Vital Signs Vital Signs - 24 hr 01/31/23 13:56 01/31/23 14:53 01/31/23 15:26 Temperature 36.7 C Temperature Source Temporal Artery Scan Pulse Rate 79 67 Respiratory Rate 18 Respiratory Effort / Characteristics Non-Labored Spontaneous Respiratory Depth Normal Blood Pressure 119/68 Blood Pressure Mean 85 Pulse Oximetry 93 98 Oxygen Delivery Method Room Air Room Air Sepsis Recent Fever Within 48 Hours No Sepsis New/Unexplained Change in Mental Status N/A Sepsis Action Taken by Nursing No Action Required Laboratory Data 01/31/23 14:15 01/31/23 14:15 Lab Results 01/31/23 01/31/23 01/31/23 Range/Units 14:15 14:15 14:15 WBC 8.82 (4.8-10.8) K/ul RBC 4.15 L (4.20-5.40) M/uL Hgb 13.9 (12.0-16.0) g/dl Hct 41.1 (37.0-47.0) % MCV 99.0 (80.0-100.0) fL MCH 33.5 (25.0-34.0) pg MCHC 33.8 (32.0-36.0) g/dL RDW Std Deviation 57.2 H (36.4-46.3) fL RDW Coeff of Oliver 15.7 H (11.5-14.5) % Plt Count 214 (130-400) K/uL MPV 10.8 (9.4-12.4) fL Immature Gran % (Auto) 0.6 % Neut % (Auto) 80.0 % Lymph % (Auto) 11.0 % [place] % (Auto) 7.0 % Eos % (Auto) 0.7 % Baso % (Auto) 0.7 % Neut # (Auto) 7.06 H (1.40-6.50) K/uL Lymph # (Auto) 0.97 L (1.20-3.40) K/uL [place] # (Auto) 0.62 H (0.11-0.59) K/uL Eos # (Auto) 0.06 (0.00-0.50) K/uL Baso # (Auto) 0.06 (0.00-0.20) K/uL Immature Gran # (Auto) 0.05 (0.01-0.20) K/uL PT 10.7 (9.0-12.0) Seconds INR 1.0 (0.9-1.1) APTT 33.9 H (21.0-31.0) Seconds PTT Ratio 1.2 Sodium (136-145) mmol/L Potassium (3.5-5.1) mmol/L Chloride (98-107) mmol/L Carbon Dioxide (21-32) mmol/L Anion Gap (3-11) BUN (6-23) mg/dl Creatinine (0.6-1.2) mg/dl Est Cr Clr Drug Dosing Est GFR ( Amer) ml/min Est GFR (Non-Af Amer) ml/min BUN/Creatinine Ratio (10-20) Glucose (70-99(Fasting)) mg/dl Calcium (8.6-10.3) mg/dl Total Bilirubin (0.2-1.0) mg/dl AST (13-39) U/L ALT (7-52) U/L Alkaline Phosphatase (34-104) U/L Troponin I High Sens (0-14) pg/ml Total Protein (6.0-8.3) gm/dl Albumin (3.4-5.0) gm/dl Globulin (2.5-4.0) gm/dl Albumin/Globulin Ratio (0.9-2) Lipase (11-82) U/L Blood Type A Positive Antibody Screen NEGATIVE 01/31/23 Range/Units 14:15 WBC (4.8-10.8) K/ul RBC (4.20-5.40) M/uL Hgb (12.0-16.0) g/dl Hct (37.0-47.0) % MCV (80.0-100.0) fL MCH (25.0-34.0) pg MCHC (32.0-36.0) g/dL RDW Std Deviation (36.4-46.3) fL RDW Coeff of Oliver (11.5-14.5) % Plt Count (130-400) K/uL MPV (9.4-12.4) fL Immature Gran % (Auto) % Neut % (Auto) % Lymph % (Auto) % [place] % (Auto) % Eos % (Auto) % Baso % (Auto) % Neut # (Auto) (1.40-6.50) K/uL Lymph # (Auto) (1.20-3.40) K/uL [place] # (Auto) (0.11-0.59) K/uL Eos # (Auto) (0.00-0.50) K/uL Baso # (Auto) (0.00-0.20) K/uL Immature Gran # (Auto) (0.01-0.20) K/uL PT (9.0-12.0) Seconds INR (0.9-1.1) APTT (21.0-31.0) Seconds PTT Ratio Sodium 138 (136-145) mmol/L Potassium 3.8 (3.5-5.1) mmol/L Chloride 102 (98-107) mmol/L Carbon Dioxide 32 (21-32) mmol/L Anion Gap 4 (3-11) BUN 29 H (6-23) mg/dl Creatinine 0.62 (0.6-1.2) mg/dl Est Cr Clr Drug Dosing Not Reportable Est GFR ( Amer) 100.1 ml/min Est GFR (Non-Af Amer) 86.4 ml/min BUN/Creatinine Ratio 46.8 H (10-20) Glucose 97 (70-99(Fasting)) mg/dl Calcium 9.5 (8.6-10.3) mg/dl Total Bilirubin 0.8 (0.2-1.0) mg/dl AST 13 (13-39) U/L ALT 10 (7-52) U/L Alkaline Phosphatase 77 (34-104) U/L Troponin I High Sens 6.3 (0-14) pg/ml Total Protein 6.6 (6.0-8.3) gm/dl Albumin 3.9 (3.4-5.0) gm/dl Globulin 2.7 (2.5-4.0) gm/dl Albumin/Globulin Ratio 1.4 (0.9-2) Lipase 89 H (11-82) U/L Blood Type Antibody Screen Administered Medications Discontinued Medications Fentanyl Citrate (Fentanyl Citrate Pf 100 Mcg/2 Ml Vial) 50 mcg IV NOW STA Stop: 01/31/23 16:08 Last Admin: 01/31/23 16:11 Dose: 50 mcg Documented By: DONALD Pantoprazole Sodium 80 mg/ (Dextrose) 120 mls @ 480 mls/hr IV ONE STA Stop: 01/31/23 15:19 Last Infusion: 01/31/23 16:06 Dose: 0 mls/hr Documented By: Admin: 01/31/23 15:29 Dose: 480 mls/hr Documented By: Ioversol (Optiray 320 500ml) 89 ml IV ONCE ONE Stop: 01/31/23 15:42 Last Admin: 01/31/23 15:43 Dose: 89 ml Documented By: BOUCHRA Metoclopramide HCl (Metoclopramide Hcl Inj 5 Mg/Ml 2 Ml Vial) 5 mg IV ONE ONE Stop: 01/31/23 15:02 Last Admin: 01/31/23 15:07 Dose: 5 mg Documented By: ADITI Imaging Data Radiologist's Impression: Abdomen/Pelvis CT 01/31/23 14:42 CT OF THE ABDOMEN AND PELVIS WITH CONTRAST CLINICAL HISTORY: bloody stool, large lumbar contusion, on eliquis COMPARISON STUDY: KUB August 08, 2021. TECHNIQUE: Following IV administration of 89 mL of Optiray, axial images of the abdomen and pelvis were obtained from the lung bases to the proximal femurs. Images were reviewed in the axial, sagittal, and coronal planes. IV contrast was administered without complication. Automated exposure control was utilized for the study. A dose lowering technique was utilized adhering to the principles of ALARA. CT DOSE: 341.28 mGy.cm FINDINGS: This exam is significantly compromised by streak artifact from spinal hardware and intrathecal catheter and difficulty positioning. No hemoperitoneum or pneumoperitoneum is noted. Liver, spleen, adrenal glands, kidneys and pancreas are grossly unremarkable with the exception of a few suspected renal cysts. There is no hydronephrosis. There is no biliary or pancreatic ductal dilatation status post cholecystectomy. There is no evidence for a bowel obstruction. There is no free fluid. Sensitivity for detection of acute fractures is markedly diminished due to artifact but no definite acute fractures are present. There are several old thoracic spine compression deformities. Multiple subcutaneous contusions of the lower back are noted. No active extravasation is identified. Right femoral internal fixation is partially imaged IMPRESSION: 1. Exam significantly compromised by artifact and difficulty positioning, as described above. No definite acute findings within the abdomen or pelvis. 2. Multiple subcutaneous contusions of the lower back, as described above. No active extravasation identified. 3. Nearly nondiagnostic evaluation of the thoracolumbar spine given artifact. No definite acute fractures. Several old thoracic spine fractures. ACT 112: Negative or not required by law. Electronically signed by: Nitish Singleton M.D. 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 [employer] computer Prescriptions Prescriptions: No Action Eliquis 5 mg tablet 5 mg PO BID diltiazem HCl 120 mg capsule,extended release 24hr 120 mg PO DAILY hydrocodone-acetaminophen 10-325 mg tablet 1 tab PO Q6 PRN (Reason: Pain) promethazine 12.5 mg tablet 12.5 mg PO Q6H PRN (Reason: Nausea) multivitamin Tablet 1 tab PO QAM trazodone 100 mg Tablet 100 mg PO HS omeprazole 20 mg Tablet,Delayed Release (Dr/Ec) 20 mg PO QPM rizatriptan 10 mg Tablet 10 mg PO UD PRN (Reason: Migraine Headache) Rx Instructions: take 1 tab at onset of headache; if no relief may repeat 1 tab after at least 2 hrs; max = 3 tabs/24 hr atorvastatin 10 mg Tablet 10 mg PO QAM Qty: 30 0RF isosorbide mononitrate 30 mg Tablet Extended Release 24 Hr 30 mg PO QAM Qty: 30 0RF aspirin 81 mg Tablet,Delayed Release (Dr/Ec) 81 mg PO QAM Qty: 30 0RF quetiapine 100 mg Tablet 100 mg PO HS [id number]-gtxckmxbpqcux-nijd 50-325-40 mg Tablet 1 tab PO TID PRN (Reason: Migraine Headache) furosemide [Lasix] 20 mg Tablet 20 mg PO DAILY Excedrin Migraine 250-250-65 mg Tablet 2 tab PO Q6H PRN (Reason: Migraine Headache) calcium carbonate-vitamin D3 [Calcium 600 + D(3)] 600 mg-10 mcg (400 unit) Tablet 1 tab PO DAILY Hydromorphone Pain Pump 0 mg INJ DIRECTED Referrals Referrals: Casey Rodgers [Primary Care Provider] -
[2023-01-31 14:39] LABS: Basophils # (auto) 0.06 K/uL (0.00-0.20); Basophils % (auto) 0.7 %; Eosinophils # (auto) 0.06 K/uL (0.00-0.50); Eosinophils % (auto) 0.7 %; Hematocrit (blood only) 41.1 % (37.0-47.0); Hemoglobin 13.9 g/dl (12.0-16.0); Immature Granulocytes # (auto) 0.05 K/uL (0.01-0.20); Immature Granulocytes % (auto) 0.6 %; Lymphocytes # (auto) 0.97 K/uL (1.20-3.40); Mean Corpuscular Hemoglobin 33.5 pg (25.0-34.0); Mean Corpuscular Hgb Conc 33.8 g/dL (32.0-36.0); Mean Platelet Volume 10.8 fL (9.4-12.4); Monocytes # (auto) 0.62 K/uL (0.11-0.59); Neutrophils # (auto) 7.06 K/uL (1.40-6.50); Platelet Count 214 K/uL (130-400); RDW Coefficient of Variation 15.7 % (11.5-14.5); RDW Standard Deviation 57.2 fL (36.4-46.3); Red Blood Count 4.15 M/uL (4.20-5.40); White Blood Count 8.82 K/ul (4.8-10.8)
[2023-01-31 14:57] LABS: Alanine Aminotransferase 10 U/L (7-52); Albumin Globulin Ratio 1.4 (0.9-2); Albumin Level 3.9 gm/dl (3.4-5.0); Alkaline Phosphatase 77 U/L (34-104); Anion Gap 4 (3-11); Aspartate Aminotransferase 13 U/L (13-39); BUN Creatinine Ratio 46.8 (10-20); Bilirubin,Total 0.8 mg/dl (0.2-1.0); Blood Urea Nitrogen 29 mg/dl (6-23); Calcium 9.5 mg/dl (8.6-10.3); Carbon Dioxide 32 mmol/L (21-32); Chloride 102 mmol/L (98-107); Est GFR (African American) 100.1 ml/min; Est GFR (Non-African American) 86.4 ml/min; Globulin 2.7 gm/dl (2.5-4.0); Glucose 97 mg/dl (70-99(Fasting)); Lipase 89 U/L (11-82); Potassium 3.8 mmol/L (3.5-5.1); Sodium 138 mmol/L (136-145); Total Protein 6.6 gm/dl (6.0-8.3)
[2023-01-31] MEDS ORDERED: METOCLOPRAMIDE HCL INJ 5 MG/ML 2 ML VIAL IV ONE (15:01)
[2023-01-31 15:03] LABS: Troponin I High Sensitivity 6.3 pg/ml (0-14)
[2023-01-31] MEDS ORDERED: PANTOprazole 80 MG in DEXTROSE 5% 100 ML IV STA (15:05)
[2023-01-31 15:06] LABS: Partial Thromboplastin Ratio 1.2; Partial Thromboplastin Time 33.9 Seconds (21.0-31.0); Prothrombin Time 10.7 Seconds (9.0-12.0)
[2023-01-31] MEDS ORDERED: OPTIRAY 320 500ml IV ONE (15:41)
[2023-01-31] MEDS ORDERED: fentaNYL citrate PF 100 MCG/2 ML VIAL IV STA (16:07)
--- NOTE | 2023-01-31 16:29 | CT Scan Report ---
CT OF THE ABDOMEN AND PELVIS WITH CONTRAST CLINICAL HISTORY: bloody stool, large lumbar contusion, on eliquis COMPARISON STUDY: KUB August 08, 2021. TECHNIQUE: Following IV administration of 89 mL of Optiray, axial images of the abdomen and pelvis we re obtained from the lung bases to the proximal femurs. Images were reviewed in the axial, sagittal, and coronal planes. IV contrast was administered without complication. Automated exposure control wa s utilized for the study. A dose lowering technique was utilized adhering to the principles of ALARA . CT DOSE: 341.28 mGy.cm FINDINGS: This exam is significantly compromised by streak artifact from spinal hardware and intrathe jackson catheter and difficulty positioning. No hemoperitoneum or pneumoperitoneum is noted. Liver, splee n, adrenal glands, kidneys and pancreas are grossly unremarkable with the exception of a few suspecte d renal cysts. There is no hydronephrosis. There is no biliary or pancreatic ductal dilatation status post cholecystectomy. There is no evidence for a bowel obstruction. There is no free fluid. Sensitiv ity for detection of acute fractures is markedly diminished due to artifact but no definite acute fra ctures are present. There are several old thoracic spine compression deformities. Multiple subcutaneo us contusions of the lower back are noted. No active extravasation is identified. Right femoral inter nal fixation is partially imaged IMPRESSION: 1. Exam significantly compromised by artifact and difficulty positioning, as described above. No defi nite acute findings within the abdomen or pelvis. 2. Multiple subcutaneous contusions of the lower back, as described above. No active extravasation id entified. 3. Nearly nondiagnostic evaluation of the thoracolumbar spine given artifact. No definite acute fract ures. Several old thoracic spine fractures. ACT 112: Negative or not required by law. Electronically signed by: Nitish Singleton M.D. 01/31/2023 4:27 PM
--- NOTE | 2023-01-31 17:13 | History & Physical Report ---
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 She has been on Eliquis since Feb 2022 when she was admitted with af ib RVR. Today patient presents to the ER due to 1 week of nausea and abdominal discomfort, and 3 days of bright red/dark red clots of blood per rectum. She is moving her bowels 2-3 x daily in the past 3 days. Reports nausea intermittently, and that she is has vomited once daily in the past week, but no bloody emesis or coffee ground emesis. Denies hx of hemorrhoids or diverticulosis. She denies lightheadedness and dizziness. Pt has been drinking fluids but not interested in food. GI bleed - Admit to tele - Sounds like this is a lower GI bleed with BRBPR with dark red clots, moving bowels 2-3x daily for past 3 days but will plan to treat for possible Upper GI bleed as well with history. - Continue protonix 40 mg IV BID with hx of large gastric ulcer several years ago, no longer on protonix as outpatient, and has been using excedrine for migraine treatment which has NSAID. - GI consulted- Dr. Rodriguez, for possible scope. Pt was followed many years ago with GI out [facility] area - Allow clear liquid diet for now - Check H&H at 2100 tonight and again with am labs - Holding eliquis - CT abd/pelvis reviewed showin. Exam significantly compromised by artifact and difficulty positioning, as described above. No definite acute findings within the abdomen or pelvis. 2. Multiple subcutaneous contusions of the lower back, as described above. No active extravasation identified. 3. Nearly nondiagnostic evaluation of the thoracolumbar spine given artifact. No definite acute fractures. Several old thoracic spine fractures. - Ecchymotic lesion on lumbar spine region noted - subcutaneous contusion, may use warm compress on region if needed for pain. Paroxysmal Afib Valvular Heart disease Moderate Mitral Regurg Mild Tricuspid Regurg - Continue rate control with metoprolol, isosorbide - Holding eliquis as above - Follows with Rhian[facility] SAMUEL as outpatient. Was recently taken off diltiazem earlier this summer and placed on beta blockade instead - Takes lasix Wednesday-Wednesday and Spironolactone MWF Chronic Pain - Back stimulator in place - Continue home pain regimen - PT/OT consults, uses walker at baseline Tobacco Use - Smokes 1 ppd since she was a teenager, ~60 pack year hx - Cessation encouraged, pt denies the need for a nicotine patch. - This would also increase her risk for gastric ulcer Migraine - Consider holding excedrin migraine due to nsaid component Insomnia - Pt is using trazadone 200 mg HS - discussed that this is likely not effective and that discontinuation is recommended DVT ppx: holding chemical anticoagulation secondary to GI bleed as above Lines : 2 PIV FEN/GI: Clear liquid, NSS at 80 ml/hr x 1 bag CODE: DNR/DNI Dispo: From home, likely to reamin in hospital x 1-2 days History of Present Illness Chief Complaint: GI bleeding Primary Care Provider: Casey Rodgers This is a 77 yo F with PMH of PAF on Eliquis, valvular heart disease [moderate to severe MR/mild TR/TTE 2022], chronic back pain s/p surgery and intrathecal pump placement, GERD, mood disorder, ongoing tobacco abuse, who was admitted in November 2022 to [facility] for chest pain rule out and underwent stress testing which was equivocal. She has been on Eliquis since Feb 2022 when she was admitted with afib RVR. Today patient presents to the ER due to 1 week of nausea and abdominal discomfort, and 3 days of bright red/dark red clots of blood per rectum. She is moving her bowels 2-3 x daily in the past 3 days. Reports nausea intermittently, and that she is has vomited once daily in the past week, but no bloody emesis or coffee ground emesis. Denies hx of hemorrhoids or diverticulosis. She denies lightheadedness and dizziness. Pt has been drinking fluids but not interested in food. 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 Panchal in [place], but has not seen him in many years. Pt notes having colonoscopies and EGD but these were also many years ago. Pt does not take baby aspirin any more, but does use Excedrin migraine many days per month- she took it today, and reports having about 15 migraines per month. Also notes having a large ecchymotic lesion over her buttocks, which she did not notice was there. Pt denies any trauma or injury to the area, and that she sleeps in a hospital bed at home. Her lives with her and noticed it. She lives at home with her and has been taking all medication as directed. Last dose of Eliquis was this morning. Allergies Allergy/AdvReac Type Severity Reaction Status Date / Time chlorhexidine Allergy Mild Rash Verified 01/31/23 17:22 fluconazole [From Diflucan] AdvReac Severe Diarrhea Verified 01/31/23 17:22 (with oral) hydrochlorothiazide AdvReac Intermediate Pancreatiti Verified 01/31/23 17:22 s ondansetron [From Zofran] AdvReac Intermediate Headaches Verified 01/31/23 17:22 Home Medications Medication Instructions Recorded Confirmed Type multivitamin 1 tab PO QAM 02/05/20 01/31/23 History omeprazole 20 mg tablet,delayed 20 mg PO QPM 01/20/22 01/31/23 History release rizatriptan 10 mg tablet 10 mg PO UD PRN Migraine Headache 01/20/22 01/31/23 History trazodone 100 mg tablet 200 mg PO HS 01/20/22 01/31/23 History apixaban 5 mg tablet (Eliquis) 5 mg PO BID 04/22/22 01/31/23 History hydrocodone 10 mg-acetaminophen 1 tab PO Q6 PRN Pain 04/22/22 01/31/23 History 325 mg tablet promethazine 12.5 mg tablet 12.5 mg PO Q6H PRN Nausea 06/08/22 01/31/23 History atorvastatin 10 mg tablet 10 mg PO QAM #30 tabs 11/10/22 01/31/23 Rx isosorbide mononitrate 30 mg 30 mg PO QAM #30 tabs 11/10/22 01/31/23 Rx tablet,extended release 24 hr Hydromorphone Pain Pump 0 mg INJ DIRECTED 01/31/23 01/31/23 History kkwunpj-atketqnlcrwwk-[id number] 250 2 tab PO Q6H PRN Migraine Headache 01/31/23 01/31/23 History mg-250 mg-65 mg tablet (Excedrin Migraine) uvdzavlgol-mffzwbjiewgue-ipgoqouf 1 tab PO TID PRN Migraine Headache 01/31/23 01/31/23 History 50 mg-325 mg-40 mg tablet calcium carbonate 600 mg-vitamin 1 tab PO DAILY 01/31/23 01/31/23 History D3 10 mcg (400 unit) tablet (Calcium 600 + D(3)) furosemide 20 mg tablet (Lasix) 20 mg PO 5XWK 01/31/23 01/31/23 History metoprolol succinate 25 mg 25 mg PO QAM 01/31/23 01/31/23 History tablet,extended release 24 hr spironolactone 25 mg tablet 25 mg PO 3XWK 01/31/23 01/31/23 History Past Med/Surg History Medical History Atrial fibrillation Depression Fracture, tibia, with fibula Gastric ulcer Gastritis "Getting under control" GERD (gastroesophageal reflux disease) Hiatal hernia History of blood transfusion Pt reports post-op after hip surgery and lumbar surgery History of syncope Previously followed with cardiology, per Dr Lockhart ([facility]), "syncope in the setting of polypharmacy for severe low back pain." Last seen by cardio 11/2018, to follow up PRN per cardio. Migraine MVP (mitral valve prolapse) Not noted on 03/2016 echo (Mild MR was present) Opiate dependence Pancreatitis Approximately 2018 Postlaminectomy syndrome of lumbosacral region Postlaminectomy syndrome of thoracic region Recurrent UTI Surgical History H/O spinal fusion Extensive [id number] (x2 lumbar fusions) History of anesthesia reaction "severe hypotension" per patient following second back surgery. ([facility] 2017). Review of records shows documentation from anesthesia that hypotension was treated in PACU, BP in post-anesthetic evaluation 92/51. Subsequent intrathecal pain pump (03/19/20): Grade view 1, MAC#3, ETT 6.5 at [facility] without issue noted per post-op anesthesia progress note/discharge summary. History of appendectomy History of cardiac cath Approximately 1994 > no stents History of cataract surgery R/L History of cholecystectomy History of colonoscopy History of dilatation and curettage History of esophagogastroduodenoscopy (EGD) History of hip surgery Right hip History of open reduction and internal fixation (ORIF) procedure Left hip S/P hardware removal Left hip x2 S/P CECILIA-BSO Family History Mother Family history of diabetes mellitus Grandmother (Maternal) Family history of diabetes mellitus Grandmother (Paternal) Family history of diabetes mellitus Other No family history of adverse response to anesthesia Social History Smoking Status: Current every day smoker Tobacco Type: Cigarettes packs per day: 0.5; Cigarettes Per Day: 10; Second Hand Exposure: Yes; Do You Dip or Chew Tobacco: No; Hx Alcohol Use: No Hx Substance Use: No Preferred Language: [place] Communication Ability: Effective Visual Impairment: No Limitations Hearing Ability: Normal [employer] Consultant Required: No Beliefs That Will Affect Care: None marital status: Current Living Situation: Spouse Current Living Situation Comment: w/ current occupational status: retired Other Information That Helps Us Care for You: No Feels Safe at Home: Yes Safety Concerns: Feels Safe At This Time Assistive Devices: Walker Review of Systems Review of Systems: Constitutional: No fever, sweats or chills Eyes: No diplopia, no worsening or blurred vision ENT: normal hearing, no trouble swallowing Respiratory: No cough, sputum, dyspnea at rest or on exertion Cardiovascular: No chest pain, tightness or palpitations Abdomen: As per HPI Musculoskeletal: No joint pain, calf pain, swelling Neurologic: No weakness, numbness/tingling, or balance problems, uses walker at home Psychiatric: No anxiety or depression Skin: No rash or itch Physical Exam Physical Exam: General: awake, alert, no apparent distress, thin white female Head: Normocephalic, atraumatic ENT: PERRL, EOMI, no pharyngeal exudate, mucous membranes dry Chest: + Faint rales on exam bilaterally, on 2L via NC, no wheezing or crackles Cardiac: irregularly irregular, rate controlled, + systolic ejection murmur, no JVD, normal peripheral pulses, good capillary refill Back: Spinal process deformity healed ( pt states from failed spinal surgery), kyphosis, + large ecchymotic lesion developing over lumbar region Abdominal: NABS x 4 quadrants, soft, nondistended, nontender to palpation, no rebound or guarding Extremities: Normal inspection, no peripheral edema or erythema, calfs nontender to palpation Psych: Normal mood and affect Neuro: AAO x 3, strength intact bilaterally and rated 5/5, no motor deficits, speech is clear, no peripheral sensory deficits Results & Data Results & Data Vital Signs (Past 12 Hours) Vital Signs Temp Pulse Resp BP Pulse Ox O2 Del Method 01/31/23 15:26 67 01/31/23 14:53 98 Room Air 01/31/23 13:56 36.7 C 79 18 119/68 93 Room Air Laboratory Results 01/31/23 01/31/23 01/31/23 Unknown 14:15 14:15 WBC RBC Hgb Hct MCV MCH MCHC RDW Std Deviation RDW Coeff of Oliver Plt Count MPV Immature Gran % (Auto) Neut % (Auto) Lymph % (Auto) [place] % (Auto) Eos % (Auto) Baso % (Auto) Neut # (Auto) Lymph # (Auto) [place] # (Auto) Eos # (Auto) Baso # (Auto) Immature Gran # (Auto) PT 10.7 INR 1.0 APTT 33.9 H PTT Ratio 1.2 Sodium 138 Potassium 3.8 Chloride 102 Carbon Dioxide 32 Anion Gap 4 BUN 29 H Creatinine 0.62 Est Cr Clr Drug Dosing Not Reportable Est GFR ( Amer) 100.1 Est GFR (Non-Af Amer) 86.4 BUN/Creatinine Ratio 46.8 H Glucose 97 Calcium 9.5 Total Bilirubin 0.8 AST 13 ALT 10 Alkaline Phosphatase 77 Troponin I High Sens 6.3 Total Protein 6.6 Albumin 3.9 Globulin 2.7 Albumin/Globulin Ratio 1.4 Lipase 89 H SARS-CoV-2, RNA, NAAT NEGATIVE Blood Type Antibody Screen 01/31/23 01/31/23 14:15 14:15 WBC 8.82 RBC 4.15 L Hgb 13.9 Hct 41.1 MCV 99.0 MCH 33.5 MCHC 33.8 RDW Std Deviation 57.2 H RDW Coeff of Oliver 15.7 H Plt Count 214 MPV 10.8 Immature Gran % (Auto) 0.6 Neut % (Auto) 80.0 Lymph % (Auto) 11.0 [place] % (Auto) 7.0 Eos % (Auto) 0.7 Baso % (Auto) 0.7 Neut # (Auto) 7.06 H Lymph # (Auto) 0.97 L [place] # (Auto) 0.62 H Eos # (Auto) 0.06 Baso # (Auto) 0.06 Immature Gran # (Auto) 0.05 PT INR APTT PTT Ratio Sodium Potassium Chloride Carbon Dioxide Anion Gap BUN Creatinine Est Cr Clr Drug Dosing Est GFR ( Amer) Est GFR (Non-Af Amer) BUN/Creatinine Ratio Glucose Calcium Total Bilirubin AST ALT Alkaline Phosphatase Troponin I High Sens Total Protein Albumin Globulin Albumin/Globulin Ratio Lipase SARS-CoV-2, RNA, NAAT Blood Type A Positive Antibody Screen NEGATIVE Diagnostic Findings Abdomen/Pelvis CT 01/31/23 14:42 CT OF THE ABDOMEN AND PELVIS WITH CONTRAST CLINICAL HISTORY: bloody stool, large lumbar contusion, on eliquis COMPARISON STUDY: KUB August 08, 2021. TECHNIQUE: Following IV administration of 89 mL of Optiray, axial images of the abdomen and pelvis were obtained from the lung bases to the proximal femurs. Images were reviewed in the axial, sagittal, and coronal planes. IV contrast was administered without complication. Automated exposure control was utilized for the study. A dose lowering technique was utilized adhering to the principles of ALARA. CT DOSE: 341.28 mGy.cm FINDINGS: This exam is significantly compromised by streak artifact from spinal hardware and intrathecal catheter and difficulty positioning. No hemoperitoneum or pneumoperitoneum is noted. Liver, spleen, adrenal glands, kidneys and pancreas are grossly unremarkable with the exception of a few suspected renal cysts. There is no hydronephrosis. There is no biliary or pancreatic ductal dilatation status post cholecystectomy. There is no evidence for a bowel obstruc tion. There is no free fluid. Sensitivity for detection of acute fractures is markedly diminished due to artifact but no definite acute fractures are present. There are several old thoracic spine compression deformities. Multiple subcutaneous contusions of the lower back are noted. No active extravasation is identified. Right femoral internal fixation is partially imaged IMPRESSION: 1. Exam significantly compromised by artifact and difficulty positioning, as described above. No definite acute findings within the abdomen or pelvis. 2. Multiple subcutaneous contusions of the lower back, as described above. No active extravasation identified. 3. Nearly nondiagnostic evaluation of the thoracolumbar spine given artifact. No definite acute fractures. Several old thoracic spine fractures. ACT 112: Negative or not required by law. Electronically signed by: Nitish Singleton M.D. 01/31/2023 4:27 PM ECG Additional Comments: Reviewed personally - irregularly irregular and rate controlled. Code Status & VTE Plan Code Status DNR/DNI - discussed with the patient at bedside Supervising Physician Co-Signing Physician Notes I have seen and examined the patient and have discussed the case with the provider above. I agree with the assessment and plan as stated. 77 yo F presents with 3 days of bright red blood per rectum. She is on apixaban for atrial fibrillation. She has a large area of ecchymosis on her lower lumbar spine, also, without h/o trauma. She has epigastric pain and TTP in the setting of ongoing aspirin use as part of combination medication for migraines which are not controlled. She has a h/o chronic lower back pain with an indwelling pain pump and high dose hydrocodone multiple times daily. She is ill appearing on exam and reports feeling sore. She has trace edema in her lower extremities but appears thin and malnourished. She has clear lungs to auscultation and is not working to breathe. CV exam as noted above. Labwork reveals a normal Hb, elevated BUN of 29 to creat of 0.62. Baseline BUN is 10. CT a/p performed as noted above. She is admitted for what appears to be a lower GI bleed with features of gastritis. Adding PPI with elevated BUN, chronic aspirin use, and epigastric tenderness that is severe. Appreciate GI recommendations. Apixban and diuretics were held. PT/OT to assess. May need to involve [facility] if we cannot find out what happened to cause her lower back ecchymotic areas. Appreciate case management assistance with this. Cont chronic narcotics for ongoing pain. DO Abel
[2023-01-31] MEDS ORDERED: SODIUM CHLORIDE 0.9% 1,000 ML IV SCH (18:15)
[2023-01-31] MEDS ORDERED: ONDANSETRON INJ 2 MG/ML 2 ML VIAL IV PRN (18:17)
[2023-01-31] MEDS ORDERED: ACETAMINOPHEN 325 MG TAB PO PRN (18:17)
[2023-01-31] MEDS ORDERED: HYDROcodone/ACETAMINOPHEN 10/325 TAB PO ONE (18:41)
[2023-01-31] MEDS: PANTOprazole 40 MG in SYRINGE 0 ML IV SCH (20:15)
[2023-01-31] MEDS ORDERED: LORazepam 2 MG/1 ML VIAL IV STA (20:37)
[2023-01-31] MEDS: traZODone HCL 100 MG TAB PO SCH (21:13)
[2023-01-31 21:25] LABS: Hematocrit (blood only) 39.3 % (37.0-47.0); Hemoglobin 13.2 g/dl (12.0-16.0)
[2023-02-01] MEDS: HYDROcodone/ACETAMINOPHEN 10/325 TAB PO PRN ×2 (01:22→08:41)
[2023-02-01] MEDS: LORazepam 0.5 MG TAB PO PRN (03:16)
[2023-02-01 07:22] LABS: Hematocrit (blood only) 35.3 % (37.0-47.0); Hemoglobin 11.9 g/dl (12.0-16.0); Mean Corpuscular Hemoglobin 33.6 pg (25.0-34.0); Mean Corpuscular Hgb Conc 33.7 g/dL (32.0-36.0); Mean Corpuscular Volume 99.7 fL (80.0-100.0); Mean Platelet Volume 10.2 fL (9.4-12.4); Platelet Count 157 K/uL (130-400); RDW Coefficient of Variation 15.8 % (11.5-14.5); Red Blood Count 3.54 M/uL (4.20-5.40); White Blood Count 7.05 K/ul (4.8-10.8)
[2023-02-01 07:36] LABS: BUN Creatinine Ratio 39.1 (10-20); Creatinine Clr Calc Pharmacy 76.1 ml/min; Est GFR (African American) 110.4 ml/min; Est GFR (Non-African American) 95.3 ml/min; Potassium 3.5 mmol/L (3.5-5.1)
[2023-02-01] MEDS ORDERED: SODIUM CHLORIDE 0.9% 250 ML IV PRN (07:57)
[2023-02-01] MEDS ORDERED: NSS + 20MEQ KCL 20 MEQ/1,000 ML BAG IV ONE (08:15)
[2023-02-01] MEDS: ATORVASTATIN 10 MG TAB PO SCH (08:40)
[2023-02-01] MEDS: PANTOprazole 40 MG in SYRINGE 0 ML IV SCH ×2 (08:43→20:26)
[2023-02-01] MEDS: METOPROLOL SUCC 25MG EXT REL TAB PO SCH (08:43)
[2023-02-01] MEDS ORDERED: ISOSORBIDE MONO EXTENDED REL 30 MG TABCR PO SCH (09:00)
--- NOTE | 2023-02-01 09:26 | Gastrointestinal Consultation ---
Supervising physician's note Case discussed with Pam Zuniga NP and patient seen and examined. See Pam's note for full details. Pleasant lady on Eliquis for a fib who came in with two days of rectal bleeding. She had two episodes two days ago and then yesterday. She has had none since admit. She describes normal stool but with blood throughout, blood in the water, on the paper and with clots. She has rectal pain when she has a bowel movement only. Her frequency of bowel movements was normal even with the bleeding. She last had a colonoscopy she says less than five years ago. EGD at that time revealed gastric ulcer. She was having abdominal pain then, she has no pain now. Bleeding sounds hemorrhoidal with no change in stool frequency. I do plan colonoscopy but will do Wednesday to let the eliquis wear off. She agrees. I have spent a total of 15 minutes discrete time with all tasks today Leelee Rodriguez Jr, MD, FACG Date of Consultation February 01, 2023 Assessment & Plan (1) BRBPR (bright red blood per rectum): Rectal bleeding: Patient admitted with 3 to 4-day history of rectal bleeding. She is on Eliquis due to history of atrial fibrillation. Requesting last colonoscopy and EGD results from performing facility. Hemoglobin 11.9/hematocrit 35.3 this morning. Patient denies any significant rectal bleeding since admission. Case reviewed with Dr. Rodriguez. Please refer to supervising physician addendum for further recommendations. I have spent 45 minutes of discrete time performing the activities of this visit which include but are not limited to review of the medical record, obtaining a history, physical exam, and entering information in the electronic record. History of Present Illness Attending Physician: Giovanni Vela MD History of Present Illness The patient is a pleasant 77-year-old female with past medical history to include PAF on Eliquis, valvular heart disease [moderate to severe MR/mild TR/TTE 2022], chronic back pain s/p surgery and intrathecal pump placement, GERD, mood disorder, ongoing tobacco abuse who presented to the emergency department with complaints of nausea, abdominal discomfort and 3 days of bright red/dark red clots of blood per rectum. She was subsequently admitted for further evaluation and the GI service consulted due to concern for GI bleeding. The patient is sleeping but wakes easily with verbal stimuli. She reports bright red rectal bleeding ongoing for several days prior to arrival. She is on Eliquis due to history of atrial fibrillation since February 2022. She reports last colonoscopy was 3 to 4 years ago and due voice. She reports about this time she also had an EGD due to ulceration. She reports some lower abdominal discomfort with nausea and vomiting couple times prior to arrival. She denies symptoms since admission. She has chronic back pain with pain pump and complains of back pain this morning. She denies any fever. She denies any noted melena or hematochezia since admission. She is and lives with her . She has 2 adult children and 3 grandchildren. She is retired. She smokes a pack cigarettes a day since she was a teenager. She denies any alcohol use or recreational drug use including marijuana. Allergies Allergy/AdvReac Type Severity Reaction Status Date / Time chlorhexidine Allergy Mild Rash Verified 01/31/23 17:22 fluconazole [From Diflucan] AdvReac Severe Diarrhea Verified 01/31/23 17:22 (with oral) hydrochlorothiazide AdvReac Intermediate Pancreatiti Verified 01/31/23 17:22 s ondansetron [From Zofran] AdvReac Intermediate Headaches Verified 01/31/23 17:22 Home Medications Medication Instructions Recorded Confirmed Type multivitamin 1 tab PO QAM 02/05/20 01/31/23 History omeprazole 20 mg tablet,delayed 20 mg PO QPM 01/20/22 01/31/23 History release rizatriptan 10 mg tablet 10 mg PO UD PRN Migraine Headache 01/20/22 01/31/23 History trazodone 100 mg tablet 200 mg PO HS 01/20/22 01/31/23 History apixaban 5 mg tablet (Eliquis) 5 mg PO BID 04/22/22 01/31/23 History hydrocodone 10 mg-acetaminophen 1 tab PO Q6 PRN Pain 04/22/22 01/31/23 History 325 mg tablet promethazine 12.5 mg tablet 12.5 mg PO Q6H PRN Nausea 06/08/22 01/31/23 History atorvastatin 10 mg tablet 10 mg PO QAM #30 tabs 11/10/22 01/31/23 Rx isosorbide mononitrate 30 mg 30 mg PO QAM #30 tabs 11/10/22 01/31/23 Rx tablet,extended release 24 hr Hydromorphone Pain Pump 0 mg INJ DIRECTED 01/31/23 01/31/23 History otincsv-oldacxsebwjcl-mxcpihpq 250 2 tab PO Q6H PRN Migraine Headache 01/31/23 01/31/23 History mg-250 mg-65 mg tablet (Excedrin Migraine) gketpprgbo-ljsdmiogcaxsr-jesuebfp 1 tab PO TID PRN Migraine Headache 01/31/23 01/31/23 History 50 mg-325 mg-40 mg tablet calcium carbonate 600 mg-vitamin 1 tab PO DAILY 01/31/23 01/31/23 History D3 10 mcg (400 unit) tablet (Calcium 600 + D(3)) furosemide 20 mg tablet (Lasix) 20 mg PO 5XWK 01/31/23 01/31/23 History metoprolol succinate 25 mg 25 mg PO QAM 01/31/23 01/31/23 History tablet,extended release 24 hr spironolactone 25 mg tablet 25 mg PO 3XWK 01/31/23 01/31/23 History Patient History Medical History Atrial fibrillation Depression Fracture, tibia, with fibula Gastric ulcer Gastritis "Getting under control" GERD (gastroesophageal reflux disease) Hiatal hernia History of blood transfusion Pt reports post-op after hip surgery and lumbar surgery History of syncope Previously followed with cardiology, per Dr Lockhart ([facility]), "syncope in the setting of polypharmacy for severe low back pain." Last seen by cardio 11/2018, to follow up PRN per cardio. Migraine MVP (mitral valve prolapse) Not noted on 03/2016 echo (Mild MR was present) Opiate dependence Pancreatitis Approximately 2018 Postlaminectomy syndrome of lumbosacral region Postlaminectomy syndrome of thoracic region Recurrent UTI Surgical History H/O spinal fusion Extensive ocndbgntrdsee-P1-Q6 (x2 lumbar fusions) History of anesthesia reaction "severe hypotension" per patient following second back surgery. ([facility] 2017). Review of records shows documentation from anesthesia that hypotension was treated in PACU, BP in post-anesthetic evaluation 92/51. Subsequent intrathecal pain pump (03/19/20): Grade view 1, MAC#3, ETT 6.5 at [facility] without issue noted per post-op anesthesia progress note/discharge summary. History of appendectomy History of cardiac cath Approximately 1994 > no stents History of cataract surgery R/L History of cholecystectomy History of colonoscopy History of dilatation and curettage History of esophagogastroduodenoscopy (EGD) History of hip surgery Right hip History of open reduction and internal fixation (ORIF) procedure Left hip S/P hardware removal Left hip x2 S/P CECILIA-BSO Family History Mother Family history of diabetes mellitus Grandmother (Maternal) Family history of diabetes mellitus Grandmother (Paternal) Family history of diabetes mellitus Other No family history of adverse response to anesthesia Social History Smoking Status: Current every day smoker Tobacco Type: Cigarettes packs per day: 0.5; Cigarettes Per Day: 10; Second Hand Exposure: Yes; Do You Dip or Chew Tobacco: No; Hx Alcohol Use: No Hx Substance Use: No Preferred Language: Persian Communication Ability: Effective Visual Impairment: No Limitations Hearing Ability: Normal Site Leasing Agent Required: No Beliefs That Will Affect Care: None marital status: Current Living Situation: Spouse Current Living Situation Comment: w/ current occupational status: retired Other Information That Helps Us Care for You: No Feels Safe at Home: Yes Safety Concerns: Feels Safe At This Time Assistive Devices: Walker Review of Systems Review of Systems: All systems reviewed & are unremarkable except as noted in Subjective Physical Exam Constitutional: WD/WN, vitals as above Respiratory: normal respiratory effort, lungs clear to auscultation Cardiovascular: Rate/Rhythm: + irregularly irregular Gastrointestinal (Abdomen): Inspection/Auscultation: abdomen normal to inspection and normal bowel sounds; abdomen not distended Percussion/Palpation: abdomen soft; abdomen nontender, no guarding and abdomen not rigid Asphalt Tamper: Monica GASTELUM for rectal examination. External exam without hemorrhoids or anal fissures. Digital rectal examination without mass or obstruction. No significant stool noted in rectal vault. Fecal occult blood testing obtained and given to nursing to send to lab. Psychiatric: A+Ox3, euthymic affect Results & Data Vital Signs (Past 12 Hours) Vital Signs Temp Pulse Resp BP Pulse Ox O2 Del Method 02/01/23 08:25 36.8 C 56 L 17 96 Nasal Cannula 02/01/23 07:42 94/57 L 02/01/23 02:52 68 20 111/61 02/01/23 02:51 64 18 116/61 02/01/23 02:50 36.3 C L 54 L 16 104/65 96 Room Air 01/31/23 23:00 37.2 C 54 L 14 88/48 L 94 Room Air Laboratory Results Laboratory Results - last 24 hr 01/31/23 01/31/23 01/31/23 14:15 14:15 14:15 WBC 8.82 RBC 4.15 L Hgb 13.9 Hct 41.1 MCV 99.0 MCH 33.5 MCHC 33.8 RDW Std Deviation 57.2 H RDW Coeff of Oliver 15.7 H Plt Count 214 MPV 10.8 Immature Gran % (Auto) 0.6 Neut % (Auto) 80.0 Lymph % (Auto) 11.0 Chambers % (Auto) 7.0 Eos % (Auto) 0.7 Baso % (Auto) 0.7 Neut # (Auto) 7.06 H Lymph # (Auto) 0.97 L Chambers # (Auto) 0.62 H Eos # (Auto) 0.06 Baso # (Auto) 0.06 Immature Gran # (Auto) 0.05 PT 10.7 INR 1.0 APTT 33.9 H PTT Ratio 1.2 Sodium Potassium Chloride Carbon Dioxide Anion Gap BUN Creatinine Est Cr Clr Drug Dosing Est GFR ( Amer) Est GFR (Non-Af Amer) BUN/Creatinine Ratio Glucose Calcium Total Bilirubin AST ALT Alkaline Phosphatase Troponin I High Sens Total Protein Albumin Globulin Albumin/Globulin Ratio Lipase SARS-CoV-2, RNA, NAAT Blood Type A Positive Antibody Screen NEGATIVE 01/31/23 01/31/23 01/31/23 14:15 21:03 Unknown WBC RBC Hgb 13.2 Hct 39.3 MCV MCH MCHC RDW Std Deviation RDW Coeff of Oliver Plt Count MPV Immature Gran % (Auto) Neut % (Auto) Lymph % (Auto) Chambers % (Auto) Eos % (Auto) Baso % (Auto) Neut # (Auto) Lymph # (Auto) Chambers # (Auto) Eos # (Auto) Baso # (Auto) Immature Gran # (Auto) PT INR APTT PTT Ratio Sodium 138 Potassium 3.8 Chloride 102 Carbon Dioxide 32 Anion Gap 4 BUN 29 H Creatinine 0.62 Est Cr Clr Drug Dosing Not Reportable Est GFR ( Amer) 100.1 Est GFR (Non-Af Amer) 86.4 BUN/Creatinine Ratio 46.8 H Glucose 97 Calcium 9.5 Total Bilirubin 0.8 AST 13 ALT 10 Alkaline Phosphatase 77 Troponin I High Sens 6.3 Total Protein 6.6 Albumin 3.9 Globulin 2.7 Albumin/Globulin Ratio 1.4 Lipase 89 H SARS-CoV-2, RNA, NAAT NEGATIVE Blood Type Antibody Screen 02/01/23 02/01/23 07:00 07:00 WBC 7.05 RBC 3.54 L Hgb 11.9 L Hct 35.3 L MCV 99.7 MCH 33.6 MCHC 33.7 RDW Std Deviation 58.0 H RDW Coeff of Oliver 15.8 H Plt Count 157 MPV 10.2 Immature Gran % (Auto) Neut % (Auto) Lymph % (Auto) Chambers % (Auto) Eos % (Auto) Baso % (Auto) Neut # (Auto) Lymph # (Auto) Chambers # (Auto) Eos # (Auto) Baso # (Auto) Immature Gran # (Auto) PT INR APTT PTT Ratio Sodium 141 Potassium 3.5 Chloride 110 H Carbon Dioxide 29 Anion Gap 2 L BUN 18 Creatinine 0.46 L Est Cr Clr Drug Dosing 76.1 Est GFR ( Amer) 110.4 Est GFR (Non-Af Amer) 95.3 BUN/Creatinine Ratio 39.1 H Glucose 92 Calcium 8.0 L Total Bilirubin AST ALT Alkaline Phosphatase Troponin I High Sens Total Protein Albumin Globulin Albumin/Globulin Ratio Lipase SARS-CoV-2, RNA, NAAT Blood Type Antibody Screen Diagnostic Findings Abdomen/Pelvis CT 01/31/23 14:42 CT OF THE ABDOMEN AND PELVIS WITH CONTRAST CLINICAL HISTORY: bloody stool, large lumbar contusion, on eliquis COMPARISON STUDY: KUB August 08, 2021. TECHNIQUE: Following IV administration of 89 mL of Optiray, axial images of the abdomen and pelvis were obtained from the lung bases to the proximal femurs. Images were reviewed in the axial, sagittal, and coronal planes. IV contrast was administered without complication. Automated exposure control was utilized for the study. A dose lowering technique was utilized adhering to the principles of ALARA. CT DOSE: 341.28 mGy.cm FINDINGS: This exam is significantly compromised by streak artifact from spinal hardware and intrathecal catheter and difficulty positioning. No hemoperitoneum or pneumoperitoneum is noted. Liver, spleen, adrenal glands, kidneys and pancreas are grossly unremarkable with the exception of a few suspected renal cysts. There is no hydronephrosis. There is no biliary or pancreatic ductal dilatation status post cholecystectomy. There is no evidence for a bowel obstruction. There is no free fluid. Sensitivity for detection of acute fractures is markedly diminished due to artifact but no definite acute fractures are present. There are several old thoracic spine compression deformities. Multiple subcutaneous contusions of the lower back are noted. No active extravasation is identified. Right femoral internal fixation is partially imaged IMPRESSION: 1. Exam significantly compromised by artifact and difficulty positioning, as described above. No definite acute findings within the abdomen or pelvis. 2. Multiple subcutaneous contusions of the lower back, as described above. No active extravasation identified. 3. Nearly nondiagnostic evaluation of the thoracolumbar spine given artifact. No definite acute fractures. Several old thoracic spine fractures. ACT 112: Negative or not required by law. Electronically signed by: Nitish Singleton M.D. 01/31/2023 4:27 PM
[2023-02-01] MEDS ORDERED: SODIUM CHLORIDE 0.9% 500 ML IV ONE ×3 (11:40→13:01)
[2023-02-01] MEDS: NSS + 20MEQ KCL 20 MEQ/1,000 ML BAG IV SCH ×2 (12:28→22:22)
--- NOTE | 2023-02-01 13:10 | Hospitalist Progress Note ---
Date of Service February 01, 2023 Assessment & Plan (1) BRBPR (bright red blood per rectum): (2) Paroxysmal atrial fibrillation: (3) care home (current) use of anticoagulants: (4) History of back pain: (5) GERD (gastroesophageal reflux disease): (6) Gastric ulcer: Plan: Patient is a 77 yr female with H/O PAF on Eliquis, valvular heart disease [moderate to severe MR/mild TR/TTE 2022], chronic back pain s/p surgery and intrathecal pump placement, GERD, mood disorder, ongoing tobacco abuse, who was admitted in November 2022 to [facility] for chest pain rule out and underwent stress testing which was equivocal. She has been on Eliquis since Feb 2022 when she was admitted with afib RVR. Patient presented with 1 week of nausea and abdominal discomfort, and 3 days of bright red/dark red clots of blood per rectum. She is moving her bowels 2-3 x daily in the past 3 days. Reports nausea intermittently, and that she is has vomited once daily in the past week, but no bloody emesis or coffee ground emesis. Denies hx of hemorrhoids or diverticulosis. Appetite has been poor. Acute GI bleed/Rectal Bleeding In setting of Eliquis, Excedrin use H/O Gastric Ulcer --CT ABD:Exam significantly compromised by artifact and difficulty positioning, as described above. No definite acute findings within the abdomen or pelvis. Hold Eliquis, avoid NSAIDs Continue IV Protonix Clear liquid diet for now Monitor H&H and transfuse PRBCs as needed Appreciate GI input Plan for colonoscopy on Wednesday Hypotension ? Dehydration due to above DD: Narcotics could be contributing (On Intrathecal pain pump) No obvious source of infection Check lactate, cortisol Check Lumbar CT given ecchymosis Obtain Blood cultures Continue IV fluids Minimize narcotics as able Further management based on above studies No rectal bleeding today, -ve FOBT Paroxysmal Afib Valvular Heart disease Moderate MR/ Mild TR Continue metoprolol with holding parameters Hold Eliquis Hold diuretics for now Chronic Pain - Back stimulator in place - Pain control with caution - PT/OT consults, uses walker at baseline Fall precautions Tobacco Use - Smokes 1 ppd since she was a teenager, ~60 pack year hx - Cessation encouraged Refused nicotine patch. Migraine - Hold Excedrin Insomnia on Trazodone DVT Px: SCDs Re:GI bleed CODE STATUS DNR/DNI Admission and Anticipated Discharge Date Admission Date: January 31, 2023 Subjective Patient is seen and examined at bedside Poor historian Was drowsy this morning during my encounter but able to answer questions appropriately Denies any bleeding issues this morning Reports having minimal abdominal discomfort Denies any chest pain, dyspnea, nausea, vomiting Review of Systems Review of Systems: All systems reviewed & are unremarkable except as noted in Subjective Physical Exam Physical Exam: Physical Exam: Vitals signs as noted above General Appearance:Thin, frail, no apparent distress, drowsy, chronic ill appearing Head: normocephalic, Atraumatic Eyes: normal inspection, EOMI Neck: supple, Trachea midline Respiratory/Chest: Decreased breath sounds, CTA, No accessory muscle use Cardiovascular: S1, S2, + murmur Abdomen/GI:Soft, Non tender, Bowel sounds present Back+ ecchymotic lesion Extremities/Musculoskeletal:normal inspection, 1+ pedal edema Neurologic/Psych:AAOX3, grossly no focal neurological deficits Skin: normal color, warm Results & Data Results & Data Vital Signs (Past 12 Hours) Vital Signs Temp Pulse Resp BP Pulse Ox O2 Del Method 02/01/23 12:46 81/42 L 02/01/23 12:43 70/38 L 02/01/23 12:04 80/48 L 02/01/23 12:04 84/44 L 02/01/23 08:00 Nasal Cannula 02/01/23 11:01 36.9 C 55 L 18 74/42 L 95 Nasal Cannula 02/01/23 08:25 36.8 C 56 L 17 96 Nasal Cannula 02/01/23 07:42 94/57 L 02/01/23 02:52 68 20 111/61 02/01/23 02:51 64 18 116/61 02/01/23 02:50 36.3 C L 54 L 16 104/65 96 Room Air Laboratory Results Short CBC 01/31/23 01/31/23 02/01/23 Range/Units 14:15 21:03 07:00 WBC 8.82 7.05 (4.8-10.8) K/ul Hgb 13.9 13.2 11.9 L (12.0-16.0) g/dl Hct 41.1 39.3 35.3 L (37.0-47.0) % Plt Count 214 157 (130-400) K/uL BMP 01/31/23 02/01/23 14:15 07:00 Sodium 138 141 Potassium 3.8 3.5 Chloride 102 110 H Carbon Dioxide 32 29 BUN 29 H 18 Creatinine 0.62 0.46 L Glucose 97 92 Calcium 9.5 8.0 L Liver Function 01/31/23 Range/Units 14:15 Total Bilirubin 0.8 (0.2-1.0) mg/dl AST 13 (13-39) U/L ALT 10 (7-52) U/L Alkaline Phosphatase 77 (34-104) U/L Albumin 3.9 (3.4-5.0) gm/dl
[2023-02-01 13:31] LABS: Hematocrit (blood only) 34.4 % (37.0-47.0); Hemoglobin 11.3 g/dl (12.0-16.0)
[2023-02-01] MEDS ORDERED: ALBUMIN 25% 25 GM/100 ML VIAL IV ONE (13:38)
--- NOTE | 2023-02-01 15:17 | CT Scan Report ---
CT OF THE LUMBAR SPINE CLINICAL HISTORY: ? Trauma, R/O hematoma COMPARISON STUDY: Thoracolumbar spine radiographs June 29, 2022. CT of the abdomen and pelvis Se pt2022. TECHNIQUE: Helical axial images of the lumbar spine were obtained. Sagittal and coronal reconstruct ions were viewed. Automated exposure control was utilized for the study. A dose lowering technique was utilized adhering to the principles of ALARA. FINDINGS: This exam is significantly compromised by streak artifact from the spinal hardware. Intrath ecal catheter is in place. The tip is above the upper aspect of this study. Sensitivity for detection of fractures within the lumbar spine is diminished but none are identified. Multilevel discectomy, p osterior decompression and pedicle screw fusion is noted. The fusion is partially imaged. Sacroiliac joints are intact. Suspected subcutaneous contusions of the lower back are again noted, as shown on C T of January 31, 2023. A left lower back contusion measures approximately 6 x 2 x 6.9 cm. A right l ower back contusion measures approximately 4.4 x 2.2 x 5.2 cm. Evaluation of the central canal and ep idural space is nearly nondiagnostic but no large hematoma is identified. Paravertebral soft tissues are unremarkable. A moderate amount of stool is noted within visualized portions of the colon. IMPRESSION: 1. Exam significantly compromised by streak artifact from spinal hardware, as described above. No def inite acute fractures within the lumbar spine. 2. Subcutaneous contusions of the lower back, as shown on CT of January 31, 2023. 3. Nearly nondiagnostic evaluation of the central canal due to CT technique and artifact. However, no additional fluid collections identified. ACT 112: Negative or not required by law. Electronically signed by: Nitish Singleton M.D. 02/01/2023 3:16 PM
[2023-02-01] MEDS: HYDROCORTISONE SOD 50 MG in SYRINGE 0 ML IV SCH ×2 (15:34→23:33)
[2023-02-01] MEDS ORDERED: SODIUM CHLORIDE 0.9% 250 ML IV ONE (15:39)
[2023-02-01] MEDS: ACETAMINOPHEN 1,000 MG/100 ML VIAL IV PRN (15:57)
[2023-02-01] MEDS: LIDOCAINE 5% 1 PATCH TD SCH (16:41)
[2023-02-01] MEDS: traZODone HCL 100 MG TAB PO SCH (20:25)
[2023-02-01] MEDS: MELATONIN 3 MG TAB PO PRN (20:26)
--- NOTE | 2023-02-01 21:38 | Electrocardiogram Report ---
Test Reason : Blood Pressure : / mmHG Vent. Rate : 063 BPM Atrial Rate : 063 BPM P-R Int : 150 ms QRS Dur : 074 ms QT Int : 380 ms P-R-T Axes : 053 -22 116 degrees QTc Int : 388 ms Normal sinus rhythm Septal infarct (cited on or before 08-NOV-2022) T wave abnormality, consider anterolateral ischemia Abnormal ECG When compared with ECG of 09-NOV-2022 06:04, Nonspecific T wave abnormality, improved in Anterior leads T wave inversion more evident in Anterolateral leads Confirmed by Mani Barroso ([id number]) on 02/01/2023 9:38:02 PM Referred By: REFERRED SELF Confirmed By:Mani Barroso
[2023-02-01 23:18] LABS: Hemoglobin 10.9 g/dl (12.0-16.0)
[2023-02-02] MEDS: ACETAMINOPHEN 1,000 MG/100 ML VIAL IV PRN ×2 (00:14→11:37)
[2023-02-02] MEDS: NSS + 20MEQ KCL 20 MEQ/1,000 ML BAG IV SCH ×2 (06:12→09:53)
[2023-02-02] MEDS: HYDROCORTISONE SOD 50 MG in SYRINGE 0 ML IV SCH ×2 (06:13→07:11)
[2023-02-02 07:50] LABS: Hematocrit (blood only) 37.9 % (37.0-47.0); Hemoglobin 12.2 g/dl (12.0-16.0); Mean Corpuscular Hemoglobin 33.2 pg (25.0-34.0); Mean Corpuscular Hgb Conc 32.2 g/dL (32.0-36.0); Mean Platelet Volume 10.5 fL (9.4-12.4); Platelet Count 166 K/uL (130-400); RDW Coefficient of Variation 15.5 % (11.5-14.5); RDW Standard Deviation 59.7 fL (36.4-46.3); Red Blood Count 3.68 M/uL (4.20-5.40); White Blood Count 7.95 K/ul (4.8-10.8)
[2023-02-02 08:15] LABS: BUN Creatinine Ratio 33.3 (10-20); Calcium 7.7 mg/dl (8.6-10.3); Creatinine Clr Calc Pharmacy 97.2 ml/min; Est GFR (African American) 119.7 ml/min; Est GFR (Non-African American) 103.3 ml/min; Potassium 4.5 mmol/L (3.5-5.1)
[2023-02-02] MEDS: ALBUMIN 25% 25 GM/100 ML VIAL IV SCH ×3 (09:32→23:46)
[2023-02-02] MEDS: MIDODRINE HCL 2.5 MG TAB PO SCH ×3 (09:34→16:15)
[2023-02-02] MEDS: ATORVASTATIN 10 MG TAB PO SCH (09:35)
[2023-02-02] MEDS: LIDOCAINE 5% 1 PATCH TD SCH (09:35)
[2023-02-02] MEDS: PANTOprazole 40 MG in SYRINGE 0 ML IV SCH ×2 (09:35→21:21)
--- NOTE | 2023-02-02 09:51 | Gastroenterology Progress Note ---
Supervising physician's note Please see note of Pam Zuniga NP for full details. She is ready for her colonoscopy and to take her prep. Had BM today with "a little blood". Leelee Rodriguez Jr, MD, FACG Date of Service February 02, 2023 Assessment & Plan (1) BRBPR (bright red blood per rectum): Plan: Rectal bleeding: Patient admitted with 3 to 4-day history of rectal bleeding. She is on Eliquis due to history of atrial fibrillation. Requesting last colonoscopy and EGD results from performing facility. Hemoglobin 12.2/hematocrit 37.9 this morning. Patient denies any significant rectal bleeding since admission. Plan for patient is colonoscopy tomorrow. She verbalizes understanding and agreement to procedure. Case reviewed with Dr. Rodriguez. Please refer to supervising physician addendum for further recommendations. I have spent 15 minutes of discrete time performing the activities of this visit which include but are not limited to review of the medical record, obtaining a history, physical exam, and entering information in the electronic record. Admission and Anticipated Discharge Date Admission Date: January 31, 2023 Subjective The patient is doing well this morning playing games on her phone. She denies any abdominal discomfort. She denies bowel movement since admission. Tolerating clear liquid diet without difficulty. Denies melena or hematochezia. She is experiencing some mid abdominal pain with palpation only. She is scheduled for colonoscopy tomorrow due to her history of Eliquis. Review of Systems Review of Systems: All systems reviewed & are unremarkable except as noted in Subjective Physical Exam Gastrointestinal (Abdomen): Inspection/Auscultation: abdomen normal to inspection and normal bowel sounds; abdomen not distended Percussion/Palpation: abdomen soft; abdomen nontender, no guarding and abdomen not rigid Results & Data Vital Signs (Past 12 Hours) Vital Signs Temp Pulse Pulse Resp BP BP Pulse Ox 02/02/23 08:35 51 L 02/02/23 08:35 02/02/23 07:25 36.8 C 63 18 84/44 L 98 02/02/23 03:00 36.5 C 53 L 18 90/49 L 98 02/01/23 22:33 36.4 C L 56 L 18 81/46 L 97 O2 Del Method O2 Flow Rate 02/02/23 08:35 02/02/23 08:35 Room Air 02/02/23 07:25 Room Air 02/02/23 03:00 Nasal Cannula 02/01/23 22:33 Nasal Cannula 2 Laboratory Results Laboratory Results - last 24 hr 02/01/23 02/01/23 02/01/23 07:00 08:50 12:56 WBC RBC Hgb 11.3 L Hct 34.4 L MCV MCH MCHC RDW Std Deviation RDW Coeff of Oliver Plt Count MPV Sodium Potassium Chloride Carbon Dioxide Anion Gap BUN Creatinine Est Cr Clr Drug Dosing Est GFR ( Amer) Est GFR (Non-Af Amer) BUN/Creatinine Ratio Glucose Lactate Calcium Magnesium Prealbumin Random Cortisol 6.48 Stool Occult Bld Scrn Negative 02/01/23 02/01/23 02/01/23 15:49 22:56 23:08 WBC RBC Hgb 10.9 L Hct 33.0 L MCV MCH MCHC RDW Std Deviation RDW Coeff of Oliver Plt Count MPV Sodium Potassium Chloride Carbon Dioxide Anion Gap BUN Creatinine Est Cr Clr Drug Dosing Est GFR ( Amer) Est GFR (Non-Af Amer) BUN/Creatinine Ratio Glucose Lactate 0.7 0.7 Calcium Magnesium Prealbumin Random Cortisol Stool Occult Bld Scrn 02/02/23 02/02/23 07:26 07:26 WBC 7.95 RBC 3.68 L Hgb 12.2 Hct 37.9 MCV 103.0 H MCH 33.2 MCHC 32.2 RDW Std Deviation 59.7 H RDW Coeff of Oliver 15.5 H Plt Count 166 MPV 10.5 Sodium 140 Potassium 4.5 D Chloride 116 H Carbon Dioxide 23 Anion Gap 1 L BUN 12 Creatinine 0.36 L Est Cr Clr Drug Dosing 97.2 Est GFR ( Amer) 119.7 Est GFR (Non-Af Amer) 103.3 BUN/Creatinine Ratio 33.3 H Glucose 114 H Lactate Calcium 7.7 L Magnesium 2.0 Prealbumin Pending Random Cortisol Stool Occult Bld Scrn Diagnostic Findings Lumbar Spine CT 02/01/23 13:16 CT OF THE LUMBAR SPINE CLINICAL HISTORY: ? Trauma, R/O hematoma COMPARISON STUDY: Thoracolumbar spine radiographs June 29, 2022. CT of the abdomen and pelvis January 31, 2023. TECHNIQUE: Helical axial images of the lumbar spine were obtained. Sagittal and coronal reconstructions were viewed. Automated exposure control was utilized for the study. A dose lowering technique was utilized adhering to the principles of ALARA. FINDINGS: This exam is significantly compromised by streak artifact from the spinal hardware. Intrathecal catheter is in place. The tip is above the upper aspect of this study. Sensitivity for detection of fractures within the lumbar spine is diminished but none are identified. Multilevel discectomy, posterior decompression and pedicle screw fusion is noted. The fusion is partially imaged. Sacroiliac joints are intact. Suspected subcutaneous contusions of the lower back are again noted, as shown on CT of January 31, 2023. A left lower back contusion measures approximately 6 x 2 x 6.9 cm. A right lower back contusion measures approximately 4.4 x 2.2 x 5.2 cm. Evaluation of the central canal and epidural space is nearly nondiagnostic but no large hematoma is identified. Paravertebral soft tissues are unremarkable. A moderate amount of stool is noted within visualized portions of the colon. IMPRESSION: 1. Exam significantly compromised by streak artifact from spinal hardware, as described above. No definite acute fractures within the lumbar spine. 2. Subcutaneous contusions of the lower back, as shown on CT of January 31, 2023. 3. Nearly nondiagnostic evaluation of the central canal due to CT technique and artifact. However, no additional fluid collections identified. ACT 112: Negative or not required by law. Electronically signed by: Nitish Singleton M.D. 02/01/2023 3:16 PM
[2023-02-02 10:00] LABS: Prealbumin 13.2 mg/dl (20-40)
[2023-02-02] MEDS: SODIUM CHLORIDE 0.9% 1,000 ML IV SCH ×2 (10:02→21:20)
[2023-02-02] MEDS ORDERED: POLYETHYLENE (MIRALAX) 17 GM PACK PO ONE (11:19)
--- NOTE | 2023-02-02 16:39 | Hospitalist Progress Note ---
Date of Service February 02, 2023 Assessment & Plan (1) BRBPR (bright red blood per rectum): (2) Paroxysmal atrial fibrillation: (3) snf (current) use of anticoagulants: (4) History of back pain: (5) GERD (gastroesophageal reflux disease): (6) Gastric ulcer: Plan: Patient is a 77 yr female with H/O PAF on Eliquis, valvular heart disease [moderate to severe MR/mild TR/TTE 2022], chronic back pain s/p surgery and intrathecal pump placement, GERD, mood disorder, ongoing tobacco abuse, who was admitted in November 2022 to [facility] for chest pain rule out and underwent stress testing which was equivocal. She has been on Eliquis since Feb 2022 when she was admitted with afib RVR. Patient presented with 1 week of nausea and abdominal discomfort, and 3 days of bright red/dark red clots of blood per rectum. She is moving her bowels 2-3 x daily in the past 3 days. Reports nausea intermittently, and that she is has vomited once daily in the past week, but no bloody emesis or coffee ground emesis. Denies hx of hemorrhoids or diverticulosis. Appetite has been poor. Acute GI bleed/Rectal Bleeding In setting of Eliquis, Excedrin use H/O Gastric Ulcer --CT ABD:Exam significantly compromised by artifact and difficulty positioning, as described above. No definite acute findings within the abdomen or pelvis. Hold Eliquis, avoid NSAIDs Continue IV Protonix Clear liquid diet for now Monitor H&H and transfuse PRBCs as needed Appreciate GI inpu Hb Stable Bowel prep today Plan for colonoscopy tomorrow N.p.o. after midnight Hypotension ? Dehydration due to above DD: Narcotics could be contributing (On Intrathecal pain pump) No obvious source of infection Normal lactate, cortisol --CT Lumbar:No definite acute fractures within the lumbar spine. Subcutaneous contusions of the lower back, as shown on CT of January 31, 2023. Nearly nondiagnostic evaluation of the central canal due to CT technique and artifact. However, no additional fluid collections identified. Low Prealbumin --Blood cultures pending Continue IV fluids as needed Minimize narcotics as able Started on Midodrine Paroxysmal Afib Valvular Heart disease Moderate MR/ Mild TR Continue metoprolol with holding parameters Hold Eliquis Hold diuretics for now Chronic Pain - Back stimulator in place - PT/OT consults, uses walker at baseline Fall precautions Minimize norcotics as likely contributing to Hypotension Tobacco Use - Smokes 1 ppd since she was a teenager, ~60 pack year hx - Cessation encouraged Refused nicotine patch. Migraine - Hold Excedrin Insomnia on Trazodone DVT Px: SCDs Re:GI bleed CODE STATUS DNR/DNI Admission and Anticipated Discharge Date Admission Date: January 31, 2023 Subjective Patient is seen and examined at bedside More alert, oriented this morning States having difficulty passing stools this morning Reports dizziness and back pain No other complaints Denies any chest pain, dyspnea, nausea, vomiting Review of Systems Review of Systems: All systems reviewed & are unremarkable except as noted in Subjective Physical Exam Physical Exam: Physical Exam: Vitals signs as noted above General Appearance:Thin, frail, no apparent distress, drowsy, chronic ill appearing Head: normocephalic, Atraumatic Eyes: normal inspection, EOMI Neck: supple, Trachea midline Respiratory/Chest: Decreased breath sounds, CTA, No accessory muscle use Cardiovascular: S1, S2, + murmur Abdomen/GI:Soft, Non tender, Bowel sounds present Back+ ecchymotic lesion Extremities/Musculoskeletal:normal inspection, 1+ pedal edema Neurologic/Psych:AAOX3, grossly no focal neurological deficits Skin: normal color, warm Results & Data Results & Data Vital Signs (Past 12 Hours) Vital Signs Temp Pulse Pulse Resp BP Pulse Ox O2 Del Method 02/02/23 15:11 36.7 C 79 18 118/79 94 Room Air 02/02/23 10:58 36.8 C 82 20 112/64 96 Room Air 02/02/23 08:35 51 L 02/02/23 08:35 Room Air 02/02/23 07:25 36.8 C 63 18 84/44 L 98 Room Air Laboratory Results Short CBC 02/01/23 02/02/23 Range/Units 22:56 07:26 WBC 7.95 (4.8-10.8) K/ul Hgb 10.9 L 12.2 (12.0-16.0) g/dl Hct 33.0 L 37.9 (37.0-47.0) % Plt Count 166 (130-400) K/uL BMP 02/02/23 07:26 Sodium 140 Potassium 4.5 D Chloride 116 H Carbon Dioxide 23 BUN 12 Creatinine 0.36 L Glucose 114 H Calcium 7.7 L
[2023-02-02] MEDS ORDERED: POLYETHYLENE (MIRALAX) 17 GM PACK PO SCH (18:00)
[2023-02-02] MEDS ORDERED: NITROGLYCERIN SL 0.4 MG/TAB TAB SL STA (20:52)
[2023-02-02] MEDS: traZODone HCL 100 MG TAB PO SCH (21:22)
--- NOTE | 2023-02-02 21:24 | Communication Note ---
Date of Service: February 02, 2023 8:50 PM Patient complained to RN of nonradiating chest pressure 'while lying in bed and playing on her phone' Chest pressure improved with nitroglycerin. Similar to episodes from chest pain admission in November as per patient. Last bloody BM was during a.m. shift following disimpaction as per RN EKG as per my interpretation : Rate 80, NSR, normal axis, nonspecific T wave abnormalities, low voltage Troponin 19.4 Hemoglobin 8.3 from 12.3 in a.m. AP NSTEMI/symptomatic anemia secondary to LGIB Patient refused cardiac catheterization after equivocal stress test from November admission as per records. current admission for LGIB Transfuse PRBC given symptomatic anemia Cardiology consult in a.m. RE NSTEMI, hx equivocal stress test Dr. Rodriguez of GI agreeable to holding colonoscopy prep in light of cardiac issues. Unfortunately antiplatelet/anticoagulation for NSTEMI cannot be safely administered LGIB ADDENDUM (02/03, 655AM) Attempted to contact family members this AM prior to end of shift to give update as per patient request. Mr. Melo Campos (son), contact #[phone]. Mr. Andre Campos (), contact #[phone]. No answer. Left message for call back.
[2023-02-02] MEDS: MELATONIN 3 MG TAB PO PRN (21:26)
[2023-02-02 22:11] LABS: Hemoglobin 8.3 g/dl (12.0-16.0)
[2023-02-02 22:51] LABS: Partial Thromboplastin Ratio 1.5
[2023-02-02 22:52] LABS: Partial Thromboplastin Time 41.6 Seconds (21.0-31.0)
[2023-02-02] MEDS: NITROGLYCERIN SL 0.4 MG/TAB TAB SL PRN (23:43)
[2023-02-03] MEDS ORDERED: SODIUM CHLORIDE 0.9% 250 ML IV PRN (01:12)
[2023-02-03] MEDS: NITROGLYCERIN SL 0.4 MG/TAB TAB SL PRN ×7 (03:20→14:05)
[2023-02-03] MEDS ORDERED: HYDROCODONE/ACETAMOPHEN 5/325MG TAB PO STA (06:06)
[2023-02-03] MEDS ORDERED: MoRPHine SULFATE 2 MG/ML CARP IV STA ×2 (06:06→18:14)
--- NOTE | 2023-02-03 06:54 | XRay Report ---
XR chest 1V portable HISTORY: Atypical chest pain. COMPARISON: Chest 11/07/2022. FINDINGS: No pneumothorax. Old, healed right-sided rib fractures. Thoracolumbar spinal fusion hardwar e again noted. The heart remains mildly enlarged. There is progressive interstitial/vascular thickeni ng consistent with pulmonary edema. Small bilateral pleural effusions have also progressed. Left basi lar linear densities are nonspecific but may represent compressive atelectasis from the pleural effus ion. IMPRESSION: 1. Interval development of mild interstitial pulmonary edema and small bilateral pleural effusions. 2. Left basilar densities are nonspecific but favor atelectasis from the pleural effusion. ACT 112: Negative or not required by law. Electronically signed by: Daniel Hicks M.D. 02/03/2023 6:53 AM
[2023-02-03] MEDS: ISOSORBIDE MONO EXTENDED REL 30 MG TABCR PO SCH (07:25)
[2023-02-03 07:34] LABS: Hematocrit (blood only) 40.2 % (37.0-47.0); Hemoglobin 12.9 g/dl (12.0-16.0); Mean Corpuscular Hemoglobin 32.6 pg (25.0-34.0); Mean Corpuscular Hgb Conc 32.1 g/dL (32.0-36.0); Mean Corpuscular Volume 101.5 fL (80.0-100.0); Mean Platelet Volume 10.3 fL (9.4-12.4); Platelet Count 130 K/uL (130-400); RDW Standard Deviation 63.5 fL (36.4-46.3); Red Blood Count 3.96 M/uL (4.20-5.40); White Blood Count 11.13 K/ul (4.8-10.8)
[2023-02-03 07:40] LABS: BUN Creatinine Ratio 26.8 (10-20); Calcium 8.6 mg/dl (8.6-10.3); Creatinine Clr Calc Pharmacy 85.3 ml/min; Est GFR (African American) 114.7 ml/min; Potassium 3.7 mmol/L (3.5-5.1)
[2023-02-03 07:54] LABS: Partial Thromboplastin Ratio 1.2; Partial Thromboplastin Time 33.1 Seconds (21.0-31.0)
[2023-02-03 07:59] LABS: Troponin I High Sensitivity 45.6 pg/ml (0-14)
[2023-02-03 09:08] LABS: Basophils # (auto) 0.04 K/uL (0.00-0.20); Basophils % (auto) 0.4 %; Eosinophils # (auto) 0.05 K/uL (0.00-0.50); Eosinophils % (auto) 0.4 %; Immature Granulocytes # (auto) 0.11 K/uL (0.01-0.20); Lymphocytes # (auto) 0.78 K/uL (1.20-3.40); Monocytes # (auto) 0.55 K/uL (0.11-0.59); Monocytes % (auto) 4.9 %; Neutrophils % (auto) 86.3 %
[2023-02-03] MEDS: METOPROLOL SUCC 25MG EXT REL TAB PO SCH (09:35)
[2023-02-03] MEDS: PANTOprazole 40 MG in SYRINGE 0 ML IV SCH ×2 (09:35→20:16)
[2023-02-03] MEDS: HYDROCODONE/ACETAMOPHEN 5/325MG TAB PO PRN ×2 (09:35→17:21)
[2023-02-03] MEDS: LIDOCAINE 5% 1 PATCH TD SCH (09:35)
[2023-02-03] MEDS: ATORVASTATIN 10 MG TAB PO SCH (09:36)
--- NOTE | 2023-02-03 10:09 | Cardiology Consultation ---
Date of Consultation February 03, 2023 Assessment & Plan (1) Symptomatic anemia: (2) BRBPR (bright red blood per rectum): (3) Chest pain: (4) NSTEMI (non-ST elevated myocardial infarction): Plan Patient admitted with concerns for GI bleed after several days of BRBPR. She was prepping for colonoscopy yesterday/last evening and developed substernal chest pain, resolved with 1 SL nitro. No acute EKG changes noted yesterday. Minimal elevation in HS troponin initially at 19, then increasing to 45 this morning. No EKG changes this morning. IV heparin was not initiated due to GI bleed. Hbg was repeated with episode of chest pain and hbg trending down to 8.3 at time of event. Question if this was dilutional after receiving significant IV fluids yesterday. She received 1 unit PRBC's with improvement in her hbg to 12.9 this morning. No recurrent bleeding since yesterday afternoon. Currently patient is chest pain free. Likely type II demand ischemic event in setting of symptomatic anemia. She denies recent exertional chest pain since prior admission in November. She reports a history of bleeding gastric ulcers. At this time, would recommend proceeding with EGD and colonoscopy for further evaluation and etiology of her GI bleed. Ongoing conservative therapies recommended from a cardiac standpoint for possible ischemic heart disease. She is not considered a catheterization candidate with current GI bleed. ASA and Eliquis currently on hold. Resume when able. Currently she is maintaining NSR. Continue metoprolol Continue statin, isosorbide. Case discussed with Dr. Christianson I spent a total of 60 minutes on the date of service in preparation, delivery, and documentation of the care provided to this patient, excluding any time spent in the performance of separately billed services. Rhiannon Leal PA-C Department of Cardiology, [facility] This chart was completed in part utilizing Speech Voice Recognition Software. Grammatical errors, random word insertions, pronoun errors, and incomplete sentences are an occasional consequence of this system due to software limitations, ambient noise, and hardware issues. Any formal questions or concerns about the content, text, or information contained within the body of this dictation should be directly addressed to the provider for clarification. Supervising Physician Co-Signing Physician Notes Supervising Physician Attestation: I have personally performed a history and physical examination on the patient. I agree with the physician client services assistant's findings and plan as documented with the following additions. Subjective: Pt seen by the undersigned at 3:10 pm. Complains of more chest pain. Had SL nitroglycerin and morphine prior to my arrival. Exam: CV: regular rhythm, no edema Lungs: clear to auscultation Data: EKG performed this morning at 9:45 AM revealed sinus rhythm with diffuse nonspecific T wave flattening. Assessment and Plan: Anemia, BRBPR PAF Chest pain -Hgb 8.3 last night, increased to 12.9 after 1 unite PRBCs. -Eliquis on hold. -Has chest pain. Mildly elevated troponin. Chest pain reproduced with palpation of anterior chest wall. - Repeat EKG requested and will be reviewed. - Favor investigation of bleeding as planned by GI. I spent a total of 20 minutes on the date of service in preparation, delivery, and documentation of the care provided to this patient, excluding any time spent in the performance of separately billed services. Mac Christianson, DO History of Present Illness Reason for Consultation: Chest pain in setting of GI Bleed Requesting Physician: Dr. Alvarez Attending Physician: Dr. Christianson History of Present Illness Patient is a 77 year old female known to [facility] cardiology Dr. Lockhart/[place]. History includes: 1. Paroxysmal atrial fibrillation with acute hospitalization March 04, 2022 with rapid response (1st onset). Chads Vasc 2 score 4 Repeat ER visit May 15, 2022 or with atrial fibrillation with rapid response with spontaneous conversion 2. Hypertension 3. Mitral insufficiency 4. Chronic tobacco use/chronic obstructive lung disease 5. CP with equivocal nuclear stress test in November 2022 - Normal imaging, with equivocal EKG changes during stress testing. mild chest pain with Lexiscan. Medical management preferred by patient. Preserved EF by echo Patient reports she was in normal state of health until about 5 days ago when she started to see 'blood in the toilet bowel'. She came to the ER for ongoing symptoms of possible GI bleed. Patient has been taking Eliquis for PAF. this was placed on hold. Hbg trending down slightly throughout admission. Yesterday she was prepping for colonoscopy today. Last night upon ambulation from the restroom, she developed sudden substernal chest tightness lasting several minutes. She was treated with 1 SL nitro with resolution of her symptoms. Hbg was rechecked and found to be significantly lower at 8.1. she was ordered to have 1 unit PRBC's and hbg improved to 12.9 this morning. Troponin minimally elevated at 19 and increased to 45 after episode of chest pain. No acute EKG changes noted on serial EKG's. Colonoscopy was postponed due to episode of chest pain and elevated troponin and cardio consult was requested. Patient evaluated this morning. No recurrent chest pain since receiving blood transfusion last evening. Last episode of bleeding was yesterday with last BM. She denies SOB, dizziness, palpitations. Eliquis on hold. Allergies Allergy/AdvReac Type Severity Reaction Status Date / Time chlorhexidine Allergy Mild Rash Verified 01/31/23 17:22 fluconazole [From Diflucan] AdvReac Severe Diarrhea Verified 01/31/23 17:22 (with oral) hydrochlorothiazide AdvReac Intermediate Pancreatiti Verified 01/31/23 17:22 s ondansetron [From Zofran] AdvReac Intermediate Headaches Verified 01/31/23 17:22 Home Medications Medication Instructions Recorded Confirmed Type multivitamin 1 tab PO QAM 02/05/20 01/31/23 History omeprazole 20 mg tablet,delayed 20 mg PO QPM 01/20/22 01/31/23 History release rizatriptan 10 mg tablet 10 mg PO UD PRN Migraine Headache 01/20/22 01/31/23 History trazodone 100 mg tablet 200 mg PO HS 01/20/22 01/31/23 History apixaban 5 mg tablet (Eliquis) 5 mg PO BID 04/22/22 01/31/23 History hydrocodone 10 mg-acetaminophen 1 tab PO Q6 PRN Pain 04/22/22 01/31/23 History 325 mg tablet promethazine 12.5 mg tablet 12.5 mg PO Q6H PRN Nausea 06/08/22 01/31/23 History atorvastatin 10 mg tablet 10 mg PO QAM #30 tabs 11/10/22 01/31/23 Rx isosorbide mononitrate 30 mg 30 mg PO QAM #30 tabs 11/10/22 01/31/23 Rx tablet,extended release 24 hr Hydromorphone Pain Pump 0 mg INJ DIRECTED 01/31/23 01/31/23 History cqanhsb-jgjevempcuuns-umagiuht 250 2 tab PO Q6H PRN Migraine Headache 01/31/23 01/31/23 History mg-250 mg-65 mg tablet (Excedrin Migraine) ouainjzkqm-xhmkrwqsuftfg-mmwmwdql 1 tab PO TID PRN Migraine Headache 01/31/23 01/31/23 History 50 mg-325 mg-40 mg tablet calcium carbonate 600 mg-vitamin 1 tab PO DAILY 01/31/23 01/31/23 History D3 10 mcg (400 unit) tablet (Calcium 600 + D(3)) furosemide 20 mg tablet (Lasix) 20 mg PO 5XWK 01/31/23 01/31/23 History metoprolol succinate 25 mg 25 mg PO QAM 01/31/23 01/31/23 History tablet,extended release 24 hr spironolactone 25 mg tablet 25 mg PO 3XWK 01/31/23 01/31/23 History Patient History Medical History (Updated 02/03/23 @ 11:16 by Nirav Paris MD) Atrial fibrillation Depression Encounter for pre-operative examination Fracture, tibia, with fibula Gastric ulcer Gastritis "Getting under control" GERD (gastroesophageal reflux disease) Hiatal hernia History of blood transfusion Pt reports post-op after hip surgery and lumbar surgery History of syncope Previously followed with cardiology, per Dr Lockhart ([facility]), "syncope in the setting of polypharmacy for severe low back pain." Last seen by cardio 11/2018, to follow up PRN per cardio. Migraine MVP (mitral valve prolapse) Not noted on 03/2016 echo (Mild MR was present) Opiate dependence Pancreatitis Approximately 2018 Postlaminectomy syndrome of lumbosacral region Postlaminectomy syndrome of thoracic region Recurrent UTI Surgical History H/O spinal fusion Extensive [id number] (x2 lumbar fusions) History of anesthesia reaction "severe hypotension" per patient following second back surgery. ([facility] 2017). Review of records shows documentation from anesthesia that hypotension was treated in PACU, BP in post-anesthetic evaluation 92/51. Subsequent intrathecal pain pump (03/19/20): Grade view 1, MAC#3, ETT 6.5 at [facility] without issue noted per post-op anesthesia progress note/discharge summary. History of appendectomy History of cardiac cath Approximately 1994 > no stents History of cataract surgery R/L History of cholecystectomy History of colonoscopy History of dilatation and curettage History of esophagogastroduodenoscopy (EGD) History of hip surgery Right hip History of open reduction and internal fixation (ORIF) procedure Left hip S/P hardware removal Left hip x2 S/P CECILIA-BSO Family History Mother Family history of diabetes mellitus Grandmother (Maternal) Family history of diabetes mellitus Grandmother (Paternal) Family history of diabetes mellitus Other No family history of adverse response to anesthesia Social History Smoking Status: Current every day smoker Tobacco Type: Cigarettes packs per day: 0.5; Cigarettes Per Day: 10; Second Hand Exposure: Yes; Do You Dip or Chew Tobacco: No; Hx Alcohol Use: No Hx Substance Use: No Preferred Language: Slovenian Communication Ability: Effective Visual Impairment: No Limitations Hearing Ability: Normal Visiting Nurse Required: No Beliefs That Will Affect Care: None marital status: Current Living Situation: Spouse Current Living Situation Comment: w/ current occupational status: retired Other Information That Helps Us Care for You: No Feels Safe at Home: Yes Safety Concerns: Feels Safe At This Time Assistive Devices: Walker Review of Systems Review of Systems: All systems reviewed & are unremarkable except as noted in HPI & below Physical Exam Constitutional: WD/WN, vitals as above Neck: trachea midline, no thyromegaly normal visual inspection Respiratory: normal respiratory effort, lungs clear to auscultation no labored breathing Cardiovascular: Rate/Rhythm: regular rate and regular rhythm Heart Sounds: normal S1 Vessels: no JVD Extremities: no edema Gastrointestinal (Abdomen): normal bowel sounds, soft, nontender, no hepatosplenomegaly Neurologic: PERRL, EOMI, accommodation nl, no face palsy, no dysarthria Results & Data Vital Signs (Past 12 Hours) Vital Signs Temp Pulse Pulse Resp BP BP BP 02/03/23 08:00 87 02/03/23 08:00 02/03/23 07:39 36.8 C 90 20 140/78 02/03/23 06:14 167/117 H 02/03/23 04:41 73 20 122/71 02/03/23 04:19 36.6 C 18 121/80 02/03/23 03:19 36.7 C 83 20 140/90 02/03/23 02:49 36.7 C 73 18 127/85 02/03/23 02:34 36.7 C 69 18 117/79 02/03/23 02:19 36.6 C 72 18 107/61 02/02/23 23:17 36.8 C 74 18 108/72 Pulse Ox O2 Del Method O2 Flow Rate 02/03/23 08:00 02/03/23 08:00 Room Air 02/03/23 07:39 92 Room Air 02/03/23 06:14 02/03/23 04:41 92 Nasal Cannula 2 02/03/23 04:19 93 2 02/03/23 03:19 95 2 02/03/23 02:49 95 2 02/03/23 02:34 96 2 02/03/23 02:19 98 2 02/02/23 23:17 96 Nasal Cannula 2.0 Laboratory Results Cardiac Enzymes 02/02/23 02/03/23 Range/Units 21:39 07:03 Troponin I High Sens 19.4 H 45.6 H D (0-14) pg/ml Coagulation 02/02/23 02/03/23 Range/Units 21:39 07:03 APTT 41.6 H* 33.1 H (21.0-31.0) Seconds CBC 02/02/23 02/03/23 Range/Units 21:39 07:03 WBC 11.13 H (4.8-10.8) K/ul RBC 3.96 L (4.20-5.40) M/uL Hgb 8.3 L D 12.9 D (12.0-16.0) g/dl Hct 26.0 L 40.2 (37.0-47.0) % Plt Count 130 (130-400) K/uL Neut # (Auto) 9.60 H (1.40-6.50) K/uL Lymph # (Auto) 0.78 L (1.20-3.40) K/uL [place] # (Auto) 0.55 (0.11-0.59) K/uL Eos # (Auto) 0.05 (0.00-0.50) K/uL Baso # (Auto) 0.04 (0.00-0.20) K/uL Comprehensive Metabolic Panel 02/03/23 Range/Units 07:03 Sodium 142 (136-145) mmol/L Potassium 3.7 (3.5-5.1) mmol/L Chloride 117 H (98-107) mmol/L Carbon Dioxide 22 (21-32) mmol/L BUN 11 (6-23) mg/dl Creatinine 0.41 L (0.6-1.2) mg/dl Glucose 95 (70-99(Fasting)) mg/dl Calcium 8.6 (8.6-10.3) mg/dl Intake and Output 02/02/23 02/03/23 02/03/23 22:59 06:59 14:59 Intake Total 1352.083 / 3542.500 410 / 3542.500 925 / 925 Output Total 4 / 410 2 / 410 Balance 1348.083 / 3132.500 408 / 3132.500 925 / 925 Intake: IV 552.083 / 1952.500 100 / 1952.500 925 / 925 Albumin 25% 25 gm In 100 ml @ 100 / 300 100 / 300 50 mls/hr IV Q8H REJI Rx#: [id number] Sodium Chloride 0.9% 1,000 ml @ 452.083 / 1000.000 925 / 925 75 mls/hr IV .[id number] REJI Rx#: [id number] Oral 800 / 1280 Intake (Blood Product) Amt 310 / 310 Packed Cells, Leukoreduced 310 / 310 Unit [id number] Output: # Bowel Movements 10 2 Other: Other Intake Source NPO # Unmeasured Voids 1 1 Weight 53.5 kg Weight Measurement Method Standing Scale Diagnostic Findings Telemetry reviewed: NSR with HR's in the 60-80s. No atrial fibrillation EKG reviewed from this morning: Normal sinus rhythm Low voltage QRS Septal infarct (cited on or before 08-NOV-2022) Abnormal ECG EKG reviewed from last evening at time of chest pain: NSR, low voltage QRS possible old septal infarct Mild concentric LVH LV wall motion is normal EF 60-65% LA is moderately dilated Mitral valve leaflets are mildly thickened. Moderate to severe early systolic mitral regurgitation noted. MR jet is eccentrically directed, MR jet is posteriorly directed, which is consistent with anterior leaflet pathology. Moderate TR Mild pulm hypertension Pulm artery systolic pressure is 49 mmHg no significant change from previous evaluation in November 2022 Medications Administered Current Inpatient Medications Acetaminophen (Acetaminophen 325 Mg Tab) 650 mg PO Q4H PRN PRN Reason: Moderate Pain (Scale 4, 5, 6) Stop: 03/02/23 18:16 Last Admin: 02/01/23 12:19 Dose: 650 mg Hydrocodone Bitart/Acetaminophen (Hydrocodone/Acetamophen 5/325mg Tab) 1 tab PO Q8H PRN PRN Reason: Pain Stop: 02/16/23 09:36 Last Admin: 02/03/23 09:35 Dose: 1 tab Atorvastatin Calcium (Atorvastatin 10 Mg Tab) 10 mg PO QAM REJI Stop: 03/03/23 08:59 Last Admin: 02/03/23 09:36 Dose: 10 mg Pantoprazole Sodium 40 mg/ (Syringe) 10 mls @ 5 mls/min IV BID REJI Stop: 03/02/23 20:59 Last Admin: 02/03/23 09:35 Dose: 5 mls/min Acetaminophen (Ofirmev) 1,000 mg in 100 mls @ 400 mls/hr IV Q8H PRN PRN Reason: Moderate Pain (Scale 4, 5, 6) Stop: 02/04/23 15:37 Last Infusion: 02/02/23 11:48 Dose: Infused Sodium Chloride (Nss) 250 mls @ 15 mls/hr IV .[id number] PRN PRN Reason: For Transfusion Duration Stop: 02/03/23 11:12 Isosorbide Mononitrate (Isosorbide [place] Extended Rel 30 Mg Tabcr) 30 mg PO QAM [facility] Stop: 03/05/23 06:44 Last Admin: 02/03/23 07:25 Dose: 30 mg Lidocaine (Lidocaine 5% 1 Patch) [id number] Stop: 03/03/23 15:44 Last Admin: 02/03/23 09:35 Dose: 1 patch Lorazepam (Lorazepam 0.5 Mg Tab) 0.25 mg PO TID PRN PRN Reason: Anxiety Stop: 03/02/23 20:38 Last Admin: 02/01/23 03:16 Dose: 0.25 mg Melatonin (Melatonin 3 Mg Tab) 3 mg PO HS PRN PRN Reason: Sleep Stop: 03/03/23 19:53 Last Admin: 02/02/23 21:26 Dose: 3 mg Metoprolol Succinate (Metoprolol Succ 25mg Ext Rel Tab) 25 mg PO QAM [facility] Stop: 03/03/23 08:59 Last Admin: 02/03/23 09:35 Dose: 25 mg Miscellaneous (Remove Lidoderm Patch) 1 each N/A DAILY@2100 [facility] Stop: 03/03/23 20:59 Last Admin: 02/02/23 21:21 Dose: 1 each Morphine Sulfate (Morphine Sulfate 4 Mg/Ml 1 Ml Carp\\Vial) 2 mg IV Q3H PRN PRN Reason: Pain Stop: 02/17/23 06:04 Nitroglycerin (Nitroglycerin Sl 0.4 Mg/Tab Tab) 0.4 mg SL Q5M PRN PRN Reason: Chest Pain Stop: 03/04/23 22:34 Last Admin: 02/03/23 06:13 Dose: 0.4 mg Ondansetron HCl (Ondansetron Inj 2 Mg/Ml 2 Ml Vial) 4 mg IV Q4H PRN PRN Reason: Nausea And Vomiting Stop: 03/02/23 18:16 Polyethylene Glycol (Polyethylene (Miralax) 17 Gm Pack) 119 gm PO TODAY@0618 [facility] Last Admin: 02/02/23 18:42 Dose: 119 gm Trazodone HCl (Trazodone Hcl 100 Mg Tab) 200 mg PO HS [facility] Stop: 03/02/23 20:59 Last Admin: 02/02/23 21:22 Dose: 200 mg (3) Chest pain Chest pain type: unspecified Qualified Code(s): R07.9 - Chest pain, unspecified
--- NOTE | 2023-02-03 11:11 | Anesthesiology Consultation ---
Date of Service February 03, 2023 Assessment & Plan (1) Encounter for pre-operative examination: Chart Review Chart Review: Acceptable Risk for Surgery, Patient NOT seen in Pre Admission Testing and charge entry specialist initiated Consults Requested none Proposed Anesthesia Risk / Benefits Reviewed With: PT / POA / Parent / Guardian, Accepts Plan and Informed Consent Obtained History Surgery Operation Date: 02/03/23 16:45 Proposed Procedures p Colonoscopy Dr. Michael Rodriguez Jr, MD Height/Weight Height: 5 ft 1 in Weight: 53.5 kg Allergies Allergy/AdvReac Type Severity Reaction Status Date / Time chlorhexidine Allergy Mild Rash Verified 01/31/23 17:22 fluconazole [From Diflucan] AdvReac Severe Diarrhea Verified 01/31/23 17:22 (with oral) hydrochlorothiazide AdvReac Intermediate Pancreatiti Verified 01/31/23 17:22 s ondansetron [From Zofran] AdvReac Intermediate Headaches Verified 01/31/23 17:22 Medications Home Medications Medication Instructions Recorded Confirmed Last Taken multivitamin 1 tab PO QAM 02/05/20 01/31/23 01/31/23 omeprazole 20 mg tablet,delayed 20 mg PO QPM 01/20/22 01/31/23 01/31/23 release rizatriptan 10 mg tablet 10 mg PO UD PRN Migraine Headache 01/20/22 01/31/23 Unknown trazodone 100 mg tablet 200 mg PO HS 01/20/22 01/31/23 11/06/22 apixaban 5 mg tablet (Eliquis) 5 mg PO BID 04/22/22 01/31/23 01/31/23 hydrocodone 10 mg-acetaminophen 1 tab PO Q6 PRN Pain 04/22/22 01/31/23 01/31/23 325 mg tablet promethazine 12.5 mg tablet 12.5 mg PO Q6H PRN Nausea 06/08/22 01/31/23 Unknown atorvastatin 10 mg tablet 10 mg PO QAM #30 tabs 11/10/22 01/31/23 Unknown isosorbide mononitrate 30 mg 30 mg PO QAM #30 tabs 11/10/22 01/31/23 01/31/23 tablet,extended release 24 hr Hydromorphone Pain Pump 0 mg INJ DIRECTED 01/31/23 01/31/23 Unknown [id number]-[id number] 250 2 tab PO Q6H PRN Migraine Headache 01/31/23 01/31/23 01/31/23 mg-250 mg-65 mg tablet (Excedrin Migraine) [id number]-[id number]-[id number] 1 tab PO TID PRN Migraine Headache 01/31/23 01/31/23 01/31/23 50 mg-325 mg-40 mg tablet calcium carbonate 600 mg-vitamin 1 tab PO DAILY 01/31/23 01/31/23 Unknown D3 10 mcg (400 unit) tablet (Calcium 600 + D(3)) furosemide 20 mg tablet (Lasix) 20 mg PO [id number] 01/31/23 01/31/23 01/29/23 metoprolol succinate 25 mg 25 mg PO QAM 01/31/23 01/31/23 01/31/23 tablet,extended release 24 hr spironolactone 25 mg tablet 25 mg PO 3XWK 01/31/23 01/31/23 01/29/23 Active Medications Generic Name Dose Route Start Last Admin Trade Name Myron PRN Reason Stop Dose Admin Acetaminophen 650 mg 01/31/23 18:17 02/01/23 12:19 Acetaminophen 325 Mg Tab PO 03/02/23 18:16 650 mg Q4H PRN Administration Moderate Pain (Scale 4, 5, 6) Hydrocodone Bitart/Acetaminophen 1 tab 02/02/23 09:37 02/03/23 09:35 Hydrocodone/Acetamophen 5/325mg Tab PO 02/16/23 09:36 1 tab Q8H PRN Administration Pain Atorvastatin Calcium 10 mg 02/01/23 09:00 02/03/23 09:36 Atorvastatin 10 Mg Tab PO 03/03/23 08:59 10 mg QAM REJI Administration Pantoprazole Sodium 40 mg/ 10 mls @ 5 mls/min 01/31/23 21:00 02/03/23 09:35 Syringe IV 03/02/23 20:59 5 mls/min BID REJI Administration Acetaminophen 1,000 mg in 100 mls @ 400 mls/hr 02/01/23 15:38 02/02/23 11:48 Ofirmev IV 02/04/23 15:37 Infused Q8H PRN Infusion Moderate Pain (Scale 4, 5, 6) Isosorbide Mononitrate 30 mg 02/03/23 06:45 02/03/23 07:25 Isosorbide [place] Extended Rel 30 Mg Tabcr PO 03/05/23 06:44 30 mg QAM REJI Administration Lidocaine 1 patch 02/01/23 15:45 02/03/23 09:35 Lidocaine 5% 1 Patch TD 03/03/23 15:44 1 patch QAM REJI Administration Lorazepam 0.25 mg 01/31/23 20:39 02/01/23 03:16 Lorazepam 0.5 Mg Tab PO 03/02/23 20:38 0.25 mg TID PRN Administration Anxiety Melatonin 3 mg 02/01/23 19:54 02/02/23 21:26 Melatonin 3 Mg Tab PO 03/03/23 19:53 3 mg HS PRN Administration Sleep Metoprolol Succinate 25 mg 02/01/23 09:00 02/03/23 09:35 Metoprolol Succ 25mg Ext Rel Tab PO 03/03/23 08:59 25 mg QAM REJI Administration Miscellaneous 1 each 02/01/23 21:00 02/02/23 21:21 Remove Lidoderm Patch N/A 03/03/23 20:59 1 each DAILY@2100 REJI Administration Nitroglycerin 0.4 mg 02/02/23 22:35 02/03/23 06:13 Nitroglycerin Sl 0.4 Mg/Tab Tab SL 03/04/23 22:34 0.4 mg Q5M PRN Administration Chest Pain Polyethylene Glycol 119 gm 02/02/23 18:00 02/02/23 18:42 Polyethylene (Miralax) 17 Gm Pack PO 119 gm TODAY@,18 REJI Administration Trazodone HCl 200 mg 01/31/23 21:00 02/02/23 21:22 Trazodone Hcl 100 Mg Tab PO 03/02/23 20:59 200 mg HS REJI Administration Past Medical History Medical History (Updated 02/03/23 @ 11:16 by Nirav Paris MD) Atrial fibrillation Depression Encounter for pre-operative examination Fracture, tibia, with fibula Gastric ulcer Gastritis "Getting under control" GERD (gastroesophageal reflux disease) Hiatal hernia History of blood transfusion Pt reports post-op after hip surgery and lumbar surgery History of syncope Previously followed with cardiology, per Dr Lockhart ([facility]), "syncope in the setting of polypharmacy for severe low back pain." Last seen by cardio 11/2018, to follow up PRN per cardio. Migraine MVP (mitral valve prolapse) Not noted on 03/2016 echo (Mild MR was present) Opiate dependence Pancreatitis Approximately 2018 Postlaminectomy syndrome of lumbosacral region Postlaminectomy syndrome of thoracic region Recurrent UTI Past Family History Family History Mother Family history of diabetes mellitus Grandmother (Maternal) Family history of diabetes mellitus Grandmother (Paternal) Family history of diabetes mellitus Other No family history of adverse response to anesthesia Past Surgical History Surgical History H/O spinal fusion Extensive [id number] (x2 lumbar fusions) History of anesthesia reaction "severe hypotension" per patient following second back surgery. ([facility] 2017). Review of records shows documentation from anesthesia that hypotension was treated in PACU, BP in post-anesthetic evaluation 92/51. Subsequent intrathecal pain pump (03/19/20): Grade view 1, MAC#3, ETT 6.5 at [facility] without issue noted per post-op anesthesia progress note/discharge summary. History of appendectomy History of cardiac cath Approximately 1994 > no stents History of cataract surgery R/L History of cholecystectomy History of colonoscopy History of dilatation and curettage History of esophagogastroduodenoscopy (EGD) History of hip surgery Right hip History of open reduction and internal fixation (ORIF) procedure Left hip S/P hardware removal Left hip x2 S/P CECILIA-BSO Social History Smoking Status: Current every day smoker tobacco type: cigarettes Smoking cigarettes per day: 10 Do You Dip or Chew Tobacco: No Hx Alcohol Use: No Hx Substance Use: No substance use type: does not use Physical Exam Vital Signs Last Vital Signs Temp 36.8 C 02/03/23 07:39 Pulse 87 02/03/23 08:00 Resp 20 02/03/23 07:39 BP 140/78 02/03/23 07:39 Pulse Ox 92 02/03/23 07:39 O2 Del Method Room Air 02/03/23 08:00 O2 Flow Rate 2 02/03/23 04:41 Testing Laboratory Results 02/03/23 07:03 02/03/23 07:03 PT 10.7 Seconds (9.0-12.0) 01/31/23 14:15 INR 1.0 (0.9-1.1) 01/31/23 14:15 APTT 33.1 Seconds (21.0-31.0) H 02/03/23 07:03 Blood Type A Positive 01/31/23 14:15 Antibody Screen NEGATIVE 01/31/23 14:15 02/01/23 16:05 Aerobic Blood Culture - Preliminary Blood No growth in Aerobic bottle after 24 hours. Anaerobic Blood Culture - Preliminary No growth in Anaerobic bottle after 24 hours. 02/01/23 16:05 Aerobic Blood Culture - Preliminary Blood No growth in Aerobic bottle after 24 hours. Anaerobic Blood Culture - Preliminary No growth in Anaerobic bottle after 24 hours. Electrocardiogram Date: 02/03/2303-Feb-2023 09:45:08 [facility] ROUTINE RETRIEVAL Normal sinus rhythm Low voltage QRS Septal infarct (cited on or before 08-NOV-2022) Abnormal ECG When compared with ECG of 02-FEB-2023 21:07, (unconfirmed) Questionable change in initial forces of Septal leads 25mm/s10mm/[id number] 241CID: 16Referred by: REFERRED SELF Unconfirmed Vent. rate 83 BPM [place] interval 134 ms QRS duration 66 ms QT/QTc 352/413 ms. Chest X-Ray Date: 02/03/23 XR chest 1V portable HISTORY: Atypical chest pain. COMPARISON: Chest 11/07/2022. FINDINGS: No pneumothorax. Old, healed right-sided rib fractures. Thoracolumbar spinal fusion hardware again noted. The heart remains mildly enlarged. There is progressive interstitial/vascular thickening consistent with pulmonary edema. Small bilateral pleural effusions have also progressed. Left basilar linear densities are nonspecific but may represent compressive atelectasis from the pleural effusion. IMPRESSION: 1. Interval development of mild interstitial pulmonary edema and small bilateral pleural effusions. 2. Left basilar densities are nonspecific but favor atelectasis from the pleural effusion. Echocardiogram Date: 02/02/23 EF: 60-65 LV Function: normal RWMA: + none Other Findings: + atrial enlargement (LA - mod dilated) and + LVH (mild) Valvular Disease: + MR (mod - severe) mod TR; mild pulm HTN
[2023-02-03] MEDS: ACETAMINOPHEN 1,000 MG/100 ML VIAL IV PRN ×2 (12:44→20:49)
--- NOTE | 2023-02-03 12:45 | Gastroenterology Progress Note ---
Date of Service February 03, 2023 Assessment & Plan (1) BRBPR (bright red blood per rectum): Plan: Will reschedule colonoscopy for tomorrow. Maintain liquids, repeat prep. She agrees Admission and Anticipated Discharge Date Admission Date: January 31, 2023 Subjective Had episode of chest pain last night. Second dose of prep cancelled. Cardiology saw patient and recommends proceeding with colonoscopy Physical Exam Physical Exam: She looks well Constitutional: WD/WN, vitals as above Results & Data Vital Signs (Past 12 Hours) Vital Signs Temp Pulse Pulse Resp BP BP BP 02/03/23 11:52 02/03/23 11:24 36.8 C 71 20 125/77 02/03/23 08:00 87 02/03/23 08:00 02/03/23 07:39 36.8 C 90 20 140/78 02/03/23 06:14 167/117 H 02/03/23 04:41 73 20 122/71 02/03/23 04:19 36.6 C 18 121/80 02/03/23 03:19 36.7 C 83 20 140/90 02/03/23 02:49 36.7 C 73 18 127/85 02/03/23 02:34 36.7 C 69 18 117/79 02/03/23 02:19 36.6 C 72 18 107/61 Pulse Ox O2 Del Method O2 Flow Rate 02/03/23 11:52 98 1 02/03/23 11:24 92 Room Air 02/03/23 08:00 02/03/23 08:00 Room Air 02/03/23 07:39 92 Room Air 02/03/23 06:14 02/03/23 04:41 92 Nasal Cannula 2 02/03/23 04:19 93 2 02/03/23 03:19 95 2 02/03/23 02:49 95 2 02/03/23 02:34 96 2 02/03/23 02:19 98 2
[2023-02-03] MEDS: LORazepam 0.5 MG TAB PO PRN (13:25)
[2023-02-03] MEDS: MoRPHine SULFATE 4 MG/ML 1 ML CARP\\VIAL IV PRN ×3 (14:11→20:13)
--- NOTE | 2023-02-03 15:52 | Communication Note ---
Date of Service: February 03, 2023 Pt reassessed. Describes ongoing chest pressure. EKG reveals ongoing nonspecific diffuse T wave flattening , unchanged compared to prior dating back to November,. No acute changes. It is difficult to determine if this is angina , or acute worsening of her chronic aches and pains for which she is on chronic analgesics as outpt. Will repeat a troponin level.
[2023-02-03] MEDS: NITROGLYCERIN 2% OINTMENT 30GM TUBE EXT SCH ×2 (16:11→20:17)
--- NOTE | 2023-02-03 16:46 | Hospitalist Progress Note ---
Date of Service February 03, 2023 Assessment & Plan (1) BRBPR (bright red blood per rectum): (2) Paroxysmal atrial fibrillation: (3) group home (current) use of anticoagulants: (4) History of back pain: (5) GERD (gastroesophageal reflux disease): (6) Gastric ulcer: Plan: Patient is a 77 yr female with H/O PAF on Eliquis, valvular heart disease [moderate to severe MR/mild TR/TTE 2022], chronic back pain s/p surgery and intrathecal pump placement, GERD, mood disorder, ongoing tobacco abuse, who was admitted in November 2022 to [facility] for chest pain rule out and underwent stress testing which was equivocal. She has been on Eliquis since Feb 2022 when she was admitted with afib RVR. Patient presented with 1 week of nausea and abdominal discomfort, and 3 days of bright red/dark red clots of blood per rectum. She is moving her bowels 2-3 x daily in the past 3 days. Reports nausea intermittently, and that she is has vomited once daily in the past week, but no bloody emesis or coffee ground emesis. Denies hx of hemorrhoids or diverticulosis. Appetite has been poor. Acute GI bleed/Rectal Bleeding In setting of Eliquis, Excedrin use H/O Gastric Ulcer --CT ABD:Exam significantly compromised by artifact and difficulty positioning, as described above. No definite acute findings within the abdomen or pelvis. Hold Eliquis, avoid NSAIDs --S/P 1 unit PRBCs Continue IV Protonix Monitor H&H and transfuse PRBCs as needed Appreciate GI input Drop in Hb transiently ? lab error Plan for colonoscopy tomorrow N.p.o. after midnight Hypotension ? Dehydration due to above DD: Narcotics could be contributing (On Intrathecal p ain pump) No obvious source of infection Normal lactate, cortisol --CT Lumbar:No definite acute fractures within the lumbar spine. Subcutaneous contusions of the lower back, as shown on CT of January 31, 2023. Nearly nondiagnostic evaluation of the central canal due to CT technique and artifact. However, no additional fluid collections identified. Low Prealbumin --Blood cultures negative to date Continue IV fluids as needed Minimize narcotics as able Monitor BP closely Chest pain Equivocal stress test in November. Refused cardiac cath at that time. EKG showed nonspecific T wave changes DD: Demand ischemia from anemia, angina Echo showed no regional wall motion abnormality Continue isosorbide, metoprolol Started on nitroglycerin patch Appreciate cardiology input Monitor troponin levels Chronic Back Pain - Back stimulator in place - PT/OT consults, uses walker at baseline Fall precautions Minimize narcotics as likely contributing to Hypotension Paroxysmal Afib Valvular Heart disease Moderate MR/ Mild TR Continue metoprolol with holding parameters Hold Eliquis Resume diuretics as able Tobacco Use - Smokes 1 ppd since she was a teenager, ~60 pack year hx - Cessation encouraged Refused nicotine patch. Migraine - Hold Excedrin Insomnia on Trazodone DVT Px: SCDs Re:GI bleed CODE STATUS DNR/DNI Admission and Anticipated Discharge Date Admission Date: January 31, 2023 Subjective Patient is seen and examined at bedside Patient had chest pain overnight and also informed RN this afternoon Denied any chest pain during my encounter this morning States having chronic back pain EKG unchanged from prior Denies any dyspnea, nausea, vomiting BP, hemoglobin stable Review of Systems Review of Systems: All systems reviewed & are unremarkable except as noted in Subjective Physical Exam Physical Exam: Physical Exam: Vitals signs as noted above General Appearance:Thin, frail, no apparent distress, drowsy, chronic ill appearing Head: normocephalic, Atraumatic Eyes: normal inspection, EOMI Neck: supple, Trachea midline Respiratory/Chest: Decreased breath sounds, CTA, No accessory muscle use Cardiovascular: S1, S2, + murmur Abdomen/GI:Soft, Non tender, Bowel sounds present Back+ ecchymotic lesion Extremities/Musculoskeletal:normal inspection, 1+ pedal edema Neurologic/Psych:AAOX3, grossly no focal neurological deficits Skin: normal color, warm Results & Data Results & Data Vital Signs (Past 12 Hours) Vital Signs Temp Pulse Pulse Resp BP BP Pulse Ox 02/03/23 16:00 64 02/03/23 15:16 36.4 C L 58 L 18 124/72 90 02/03/23 11:52 98 02/03/23 11:24 36.8 C 71 20 125/77 92 02/03/23 08:00 87 02/03/23 08:00 02/03/23 07:39 36.8 C 90 20 140/78 92 02/03/23 06:14 167/117 H 02/03/23 04:41 73 20 122/71 92 O2 Del Method O2 Flow Rate 02/03/23 16:00 02/03/23 15:16 Room Air 02/03/23 11:52 1 02/03/23 11:24 Room Air 02/03/23 08:00 02/03/23 08:00 Room Air 02/03/23 07:39 Room Air 02/03/23 06:14 02/03/23 04:41 Nasal Cannula 2 Laboratory Results Short CBC 02/02/23 02/03/23 Range/Units 21:39 07:03 WBC 11.13 H (4.8-10.8) K/ul Hgb 8.3 L D 12.9 D (12.0-16.0) g/dl Hct 26.0 L 40.2 (37.0-47.0) % Plt Count 130 (130-400) K/uL BMP 02/03/23 07:03 Sodium 142 Potassium 3.7 Chloride 117 H Carbon Dioxide 22 BUN 11 Creatinine 0.41 L Glucose 95 Calcium 8.6
[2023-02-03] MEDS: POLYETHYLENE (MIRALAX) 17 GM PACK PO SCH (17:23)
--- NOTE | 2023-02-03 19:16 | Communication Note ---
Date of Service: February 03, 2023 Troponin was ordered as "urgent" at 16:15. Still shows as collected and pending. I spoke to pt's nurse, who is going to investigate this with a call to the lab as it is now 19:15 and no results available
[2023-02-03] MEDS: traZODone HCL 100 MG TAB PO SCH (20:16)
[2023-02-03] MEDS: MELATONIN 3 MG TAB PO PRN (20:16)
[2023-02-04] MEDS: NITROGLYCERIN 2% OINTMENT 30GM TUBE EXT SCH ×2 (04:40→10:09)
[2023-02-04] MEDS: HYDROCODONE/ACETAMOPHEN 5/325MG TAB PO PRN ×3 (04:45→19:28)
[2023-02-04] MEDS: POLYETHYLENE (MIRALAX) 17 GM PACK PO SCH (04:46)
[2023-02-04 06:39] LABS: Hematocrit (blood only) 45.6 % (37.0-47.0); Hemoglobin 14.8 g/dl (12.0-16.0); Mean Corpuscular Hemoglobin 32.7 pg (25.0-34.0); Mean Corpuscular Hgb Conc 32.5 g/dL (32.0-36.0); Mean Corpuscular Volume 100.9 fL (80.0-100.0); Mean Platelet Volume 10.5 fL (9.4-12.4); Platelet Count 165 K/uL (130-400); RDW Coefficient of Variation 16.9 % (11.5-14.5); RDW Standard Deviation 63.1 fL (36.4-46.3); Red Blood Count 4.52 M/uL (4.20-5.40); White Blood Count 13.65 K/ul (4.8-10.8)
[2023-02-04 06:54] LABS: BUN Creatinine Ratio 23.8 (10-20); Calcium 8.8 mg/dl (8.6-10.3); Creatinine Clr Calc Pharmacy 83.3 ml/min; Est GFR (African American) 113.8 ml/min; Est GFR (Non-African American) 98.2 ml/min; Potassium 4.1 mmol/L (3.5-5.1)
[2023-02-04 07:03] LABS: Troponin I High Sensitivity 33.8 pg/ml (0-14)
[2023-02-04] MEDS: ISOSORBIDE MONO EXTENDED REL 30 MG TABCR PO SCH (08:22)
[2023-02-04] MEDS: PANTOprazole 40 MG in SYRINGE 0 ML IV SCH ×2 (08:22→19:30)
[2023-02-04] MEDS: LIDOCAINE 5% 1 PATCH TD SCH (08:24)
[2023-02-04] MEDS: METOPROLOL SUCC 25MG EXT REL TAB PO SCH (08:24)
[2023-02-04] MEDS: ATORVASTATIN 10 MG TAB PO SCH (08:25)
--- NOTE | 2023-02-04 08:44 | Pain Management Consultation ---
Date of Consultation February 04, 2023 Assessment & Plan (1) Lumbar contusion: (2) BRBPR (bright red blood per rectum): (3) group home (current) use of anticoagulants: (4) Presence of intrathecal pump: (5) H/O spinal fusion: Plan 1. Chronic pain is at baseline. No changes were made to intrathecal pump or oral medications. 2. She is scheduled for intrathecal pump refill in the pain clinic on 02/10/23 at 11AM. Patient made aware. 3. Nothing interventional to offer the patient. Will follow peripherally. Thank you for the consultation. History of Present Illness Reason for Consultation: Back pain Attending Physician: Giovanni Vela MD History of Present Illness Beth is a 77-year-old female that is well-known to the [facility] pain service with a history of chronic thoracic and lumbar back pain that has required the implantation of an intrathecal pump and catheter delivery system in 2019. In addition to the intrathecal pump she is also chronically on hydrocodone 10/325 mg 4 times daily and finds that this regimen provides mild pain relief. She is admitted to the [facility] for GI bleed, chest pain, and back pain. She is to have a colonoscopy today. Chest pain is not present at this time. She does have a large hematoma on her buttock without any specific injury. She denies any falls. Patient is on Eliquis chronically. Inpatient she is receiving Hydrocodone 5/325mg four times daily and Morphine 2mg IV if needed for breakthrough pain. She states that her chronic back pain is at baseline. No bowel/bladder incontinence, saddle anesthesia, foot drop, leg weakness, falls. Case discussed with Dr. Delmy Suazo Allergies Allergy/AdvReac Type Severity Reaction Status Date / Time chlorhexidine Allergy Mild Rash Verified 01/31/23 17:22 fluconazole [From Diflucan] AdvReac Severe Diarrhea Verified 01/31/23 17:22 (with oral) hydrochlorothiazide AdvReac Intermediate Pancreatiti Verified 01/31/23 17:22 s ondansetron [From Zofran] AdvReac Intermediate Headaches Verified 01/31/23 17:22 Home Medications Medication Instructions Recorded Confirmed Type multivitamin 1 tab PO QAM 02/05/20 01/31/23 History omeprazole 20 mg tablet,delayed 20 mg PO QPM 01/20/22 01/31/23 History release rizatriptan 10 mg tablet 10 mg PO UD PRN Migraine Headache 01/20/22 01/31/23 History trazodone 100 mg tablet 200 mg PO HS 01/20/22 01/31/23 History apixaban 5 mg tablet (Eliquis) 5 mg PO BID 04/22/22 01/31/23 History hydrocodone 10 mg-acetaminophen 1 tab PO Q6 PRN Pain 04/22/22 01/31/23 History 325 mg tablet promethazine 12.5 mg tablet 12.5 mg PO Q6H PRN Nausea 06/08/22 01/31/23 History atorvastatin 10 mg tablet 10 mg PO QAM #30 tabs 11/10/22 01/31/23 Rx isosorbide mononitrate 30 mg 30 mg PO QAM #30 tabs 11/10/22 01/31/23 Rx tablet,extended release 24 hr Hydromorphone Pain Pump 0 mg INJ DIRECTED 01/31/23 01/31/23 History geuxizi-juoxveshkmsxq-oswabplr 250 2 tab PO Q6H PRN Migraine Headache 01/31/23 01/31/23 History mg-250 mg-65 mg tablet (Excedrin Migraine) tcxbtnblnv-fntksjivxxern-hykkgjqi 1 tab PO TID PRN Migraine Headache 01/31/23 01/31/23 History 50 mg-325 mg-40 mg tablet calcium carbonate 600 mg-vitamin 1 tab PO DAILY 01/31/23 01/31/23 History D3 10 mcg (400 unit) tablet (Calcium 600 + D(3)) furosemide 20 mg tablet (Lasix) 20 mg PO 5XWK 01/31/23 01/31/23 History metoprolol succinate 25 mg 25 mg PO QAM 01/31/23 01/31/23 History tablet,extended release 24 hr spironolactone 25 mg tablet 25 mg PO 3XWK 01/31/23 01/31/23 History Patient History Medical History Atrial fibrillation Depression Encounter for pre-operative examination Fracture, tibia, with fibula Gastric ulcer Gastritis "Getting under control" GERD (gastroesophageal reflux disease) Hiatal hernia History of blood transfusion Pt reports post-op after hip surgery and lumbar surgery History of syncope Previously followed with cardiology, per Dr Lockhart ([facility]), "syncope in the setting of polypharmacy for severe low back pain." Last seen by cardio 11/2018, to follow up PRN per cardio. Migraine MVP (mitral valve prolapse) Not noted on 03/2016 echo (Mild MR was present) Opiate dependence Pancreatitis Approximately 2018 Postlaminectomy syndrome of lumbosacral region Postlaminectomy syndrome of thoracic region Recurrent UTI Surgical History H/O spinal fusion Extensive [id number] (x2 lumbar fusions) History of anesthesia reaction "severe hypotension" per patient following second back surgery. ([facility] 2017). Review of records shows documentation from anesthesia that hypotension was treated in PACU, BP in post-anesthetic evaluation 92/51. Subsequent intrathecal pain pump (03/19/20): Grade view 1, MAC#3, ETT 6.5 at [facility] without issue noted per post-op anesthesia progress note/discharge summary. History of appendectomy History of cardiac cath Approximately 1994 > no stents History of cataract surgery R/L History of cholecystectomy History of colonoscopy History of dilatation and curettage History of esophagogastroduodenoscopy (EGD) History of hip surgery Right hip History of open reduction and internal fixation (ORIF) procedure Left hip S/P hardware removal Left hip x2 S/P CECILIA-BSO Family History Mother Family history of diabetes mellitus Grandmother (Maternal) Family history of diabetes mellitus Grandmother (Paternal) Family history of diabetes mellitus Other No family history of adverse response to anesthesia Social History Smoking Status: Current every day smoker Tobacco Type: Cigarettes packs per day: 0.5; Cigarettes Per Day: 10; Second Hand Exposure: Yes; Do You Dip or Chew Tobacco: No; Hx Alcohol Use: No Hx Substance Use: No Preferred Language: Upper Sorbian Communication Ability: Effective Visual Impairment: No Limitations Hearing Ability: Normal [employer] Worker Required: No Beliefs That Will Affect Care: None marital status: Current Living Situation: Spouse Current Living Situation Comment: w/ current occupational status: retired Other Information That Helps Us Care for You: No Feels Safe at Home: Yes Safety Concerns: Feels Safe At This Time Assistive Devices: Walker Physical Exam Physical Exam: GENERAL: This is a 77 year old female in no acute distress. Able to get out of bed without assistance. HEAD/FACE: Normocephalic and atraumatic. EYES: No drainage or conjunctival injection. ENT: Nose without bleeding or discharge. Oral mucosa moist. NECK: Full ROM without apparent pain. No swelling or masses noted. RESPIRATORY: Patient with unlabored breathing. No signs of respiratory distress. CHEST/AXILLA: Chest movement symmetrical. No deformities noted. BACK: Large thoracolumbar healed incisions. There is a 6 inch round hematoma along the sacrum. SKIN: [place], warm and dry. No rash noted. MS/EXTREMITY: No swelling, no deformities. Moving extremities appropriately. NEURO: Alert and appears oriented. Speech is fluent. Cranial Nerves are grossly intact. PSYCH: Alert, pleasant, affect is calm Results (Pain Clinic) Diagnostic Review CT Findings: CT OF THE LUMBAR SPINE CLINICAL HISTORY: ? Trauma, R/O hematoma COMPARISON STUDY: Thoracolumbar spine radiographs June 29, 2022. CT of the abdomen and pelvis January 31, 2023. TECHNIQUE: Helical axial images of the lumbar spine were obtained. Sagittal and coronal reconstructions were viewed. Automated exposure control was utilized for the study. A dose lowering technique was utilized adhering to the principles of ALARA. FINDINGS: This exam is significantly compromised by streak artifact from the spinal hardware. Intrathecal catheter is in place. The tip is above the upper aspect of this study. Sensitivity for detection of fractures within the lumbar spine is diminished but none are identified. Multilevel discectomy, posterior decompression and pedicle screw fusion is noted. The fusion is partially imaged. Sacroiliac joints are intact. Suspected subcutaneous contusions of the lower back are again noted, as shown on CT of January 31, 2023. A left lower back contusion measures approximately 6 x 2 x 6.9 cm. A right lower back contusion measures approximately 4.4 x 2.2 x 5.2 cm. Evaluation of the central canal and epidural space is nearly nondiagnostic but no large hematoma is identified. Paravertebral soft tissues are unremarkable. A moderate amount of stool is noted within visualized portions of the colon. IMPRESSION: 1. Exam significantly compromised by streak artifact from spinal hardware, as described above. No definite acute fractures within the lumbar spine. 2. Subcutaneous contusions of the lower back, as shown on CT of January 31, 2023. 3. Nearly nondiagnostic evaluation of the central canal due to CT technique and artifact. However, no additional fluid collections identified. ACT 112: Negative or not required by law. Electronically signed by: Nitish Singleton M.D. 02/01/2023 3:16 PM
--- NOTE | 2023-02-04 09:06 | Gastroenterology Progress Note ---
Supervising physician's note See note from Pam Zuniga NP for full details. However she is due for colonoscopy. Procedure and risks discussed. She agrees Leelee Rodriguez Jr, MD, [facility] Date of Service February 04, 2023 Assessment & Plan (1) BRBPR (bright red blood per rectum): Plan: Bright red blood per rectum: Hemoglobin 14.8/hematocrit 45.6. Plan today is for colonoscopy. Patient is tolerating prep well. Procedure and risks explained to patient which include but not limited to medication reaction, bleeding, perforation, aspiration, and missed lesions. Verbalizes understanding and is agreeable to proceed. Case reviewed with Dr. Rodriguez. Please refer to supervising physician addendum for further recommendations. I have spent 20 minutes of discrete time performing the activities of this visit which include but are not limited to review of the medical record, obtaining a history, physical exam, and entering information in the electronic record. (2) Symptomatic anemia: Admission and Anticipated Discharge Date Admission Date: January 31, 2023 Subjective Patient awake alert and oriented sitting at bedside. She states she has tolerated colonoscopy prep well is having liquid stools that are not quite clear yet. Has no voiced complaints this morning. Denies any chest pain or abdominal pain. Review of Systems Review of Systems: All systems reviewed & are unremarkable except as noted in Subjective Physical Exam Gastrointestinal (Abdomen): normal bowel sounds, soft, nontender, no hepatosplenomegaly Results & Data Vital Signs (Past 12 Hours) Vital Signs Temp Pulse Pulse Resp BP BP Pulse Ox 02/04/23 07:39 36.8 C 87 20 122/80 90 02/04/23 04:00 37.1 C 95 H 16 116/69 92 02/03/23 23:31 91 02/03/23 22:00 36.6 C 88 18 103/68 74 L 02/03/23 23:19 77 02/03/23 22:34 O2 Del Method O2 Flow Rate 02/04/23 07:39 Nasal Cannula 2 02/04/23 04:00 Nasal Cannula 3 02/03/23 23:31 Nasal Cannula 3 02/03/23 22:00 Room Air 02/03/23 23:19 02/03/23 22:34 Room Air Laboratory Results Laboratory Results - last 24 hr 02/03/23 02/03/23 02/03/23 07:03 16:15 19:47 WBC RBC Hgb Hct MCV MCH MCHC RDW Std Deviation RDW Coeff of Oliver Plt Count MPV Immature Gran % (Auto) 1.0 Neut % (Auto) 86.3 Lymph % (Auto) 7.0 [place] % (Auto) 4.9 Eos % (Auto) 0.4 Baso % (Auto) 0.4 Neut # (Auto) 9.60 H Lymph # (Auto) 0.78 L [place] # (Auto) 0.55 Eos # (Auto) 0.05 Baso # (Auto) 0.04 Immature Gran # (Auto) 0.11 Sodium Potassium Chloride Carbon Dioxide Anion Gap BUN Creatinine Est Cr Clr Drug Dosing Est GFR ( Amer) Est GFR (Non-Af Amer) BUN/Creatinine Ratio Glucose Calcium Magnesium Troponin I High Sens 39.9 H 38.4 H 02/04/23 02/04/23 06:16 06:16 WBC 13.65 H RBC 4.52 Hgb 14.8 Hct 45.6 MCV 100.9 H MCH 32.7 MCHC 32.5 RDW Std Deviation 63.1 H RDW Coeff of Oliver 16.9 H Plt Count 165 MPV 10.5 Immature Gran % (Auto) Neut % (Auto) Lymph % (Auto) [place] % (Auto) Eos % (Auto) Baso % (Auto) Neut # (Auto) Lymph # (Auto) [place] # (Auto) Eos # (Auto) Baso # (Auto) Immature Gran # (Auto) Sodium 139 Potassium 4.1 Chloride 113 H Carbon Dioxide 19 L Anion Gap 7 BUN 10 Creatinine 0.42 L Est Cr Clr Drug Dosing 83.3 Est GFR ( Amer) 113.8 Est GFR (Non-Af Amer) 98.2 BUN/Creatinine Ratio 23.8 H Glucose 78 Calcium 8.8 Magnesium 2.0 Troponin I High Sens 33.8 H
[2023-02-04] MEDS: MoRPHine SULFATE 4 MG/ML 1 ML CARP\\VIAL IV PRN (09:13)
--- NOTE | 2023-02-04 10:37 | Cardiology Progress Note ---
Date of Service February 04, 2023 Assessment & Plan (1) Symptomatic anemia: (2) BRBPR (bright red blood per rectum): (3) Chest pain: (4) NSTEMI (non-ST elevated myocardial infarction): Plan Patient admitted with concerns for GI bleed after several days of BRBPR. During admission, patient had several episodes of substernal chest pain/pressure. Troponin minimally elevated but flat. EKG without acute changes demonstrating NSR with low voltage QRS and flattened T waves, but similar to past EKG's. Echo this admission with preserved LVEF and no wall motion abnormalities. patient had previously declined cardiac cath in November 2022, preferring medical management for possible CAD. She denied exertional chest pain since that event and with ongoing medical management. her episodes of chest pain during admission, seem to be related to her chronic pain syncope and reproducible iwht palpation to the chest wall. One episode of chest pain occurred when hbg dropped to 8.3. she received 1 unit PRBC with improved symptoms and Hbg. She is scheduled for colonoscopy today. ? EGD as well. she does have history of gastric ulcers At this time, would recommend proceeding with endoscopies for further evaluation and etiology of her GI bleeding ASA and Eliquis currently on hold. Resume when able. Currently she is maintaining NSR. Continue metoprolol Continue statin, isosorbide. Case discussed with Dr. Christianson I spent a total of 35 minutes on the date of service in preparation, delivery, and documentation of the care provided to this patient, excluding any time spent in the performance of separately billed services. Rhiannon Leal PA-C Department of Cardiology, [facility] This chart was completed in part utilizing Speech Voice Recognition Software. Grammatical errors, random word insertions, pronoun errors, and incomplete sentences are an occasional consequence of this system due to software limitations, ambient noise, and hardware issues. Any formal questions or concerns about the content, text, or information contained within the body of this dictation should be directly addressed to the provider for clarification. Admission and Anticipated Discharge Date Admission Date: January 31, 2023 Supervising Physician Co-Signing Physician Notes Supervising Physician Attestation: I have personally performed a history and physical examination on the patient. I agree with the physician state tested nursing assistant's findings and plan as documented with the following additions. Subjective: Patient seen in follow-up after colonoscopy. No source of bleeding identified. Gastroenterology report describes possible hemorrhoidal bleeding as the source of her blood per rectum. Patient in good spirits. No additional chest discomfort overnight last night. No chest discomfort this morning and at the time of my assessment. Exam: Cardiovascular: Regular rhythm, no murmurs, no edema Data: Troponin measurement as observed 02/03/2023 at 16: 15 was 39.9, then 38.4 at 19: 47, and 38.8 at 6: 16 a.m. this morning. Assessment and Plan: Paroxysmal atrial fibrillation, [id number] score of 4 for risk factors of female sex, age greater than 75, and history of hypertension, predicting a high risk of cardioembolic stroke in the setting of paroxysmal atrial fibrillation Hemoglobin stable today, 14.8, compared to 12.9 yesterday, perhaps reflecting some volume contraction from colonoscopy prep. With regards to stroke prophylaxis, patient notes that her esz-al-tprkpi cost for Eliquis is over $400 / month. Her is also on the same medication. This is not feasible long-term for her. We will likely proceed with having her establish with the [facility] anticoagulation clinic at [place] upon discharge. With regards to chest discomfort, I had a long conversation with the patient, her , Andre, and her son Drake were also in the room. We reviewed her recent symptoms and the results of her recent equivocal nuclear stress test. We discussed options of ongoing medical management or medical management with consideration of cardiac catheterization. Although she was found to have a mildly elevated troponin yesterday, my clinical sense is that her pain was not anginal but rather whole-body pain. She has a longstanding history of chronic back pain with 2 past spine surgeries. She is on chronic narcotic analgesics at baseline. The medications she is on today including the Lidoderm patch seem to be serving her well. Her EKG tracings that have been done in serial fashion did not reveal evidence of ischemia, and nitroglycerin including Nitropaste did not seem to alleviate the symptoms yesterday. Discontinue topical nitroglycerin, continue isosorbide mononitrate extended release 30 mg daily, atorvastatin 10 mg daily, metoprolol succinate 25 mg daily, Protonix. We will advance diet. If patient remains stable without bleeding overnight tonight, will consider options with regards to reinitiating aspirin and transitioning her to Coumadin, or proceeding with cardiac catheterization if patient has a change in condition with symptoms suggestive of angina. DVT prophylaxis: SCDs I spent a total of 25 minutes on the date of service in preparation, delivery, and documentation of the care provided to this patient, excluding any time spent in the performance of separately billed services. 2:28 PM Mac Christianson, Subjective Patient had episode of recurrent chest pain yesterday afternoon. Repeat troponin remained stable and flat. No acute EKG changes. Patient with chronic pain/diffuse. Chest pain was reproducible upon palpatation of the area and seemed to improve with pain medication. No recurrent events late last night or this morning. Patient resting in bed. Having colonoscopy later today. No recurrent bleeding. No SOB. Voices no acute complaints. Review of Systems Review of Systems: All systems reviewed & are unremarkable except as noted in HPI & below Physical Exam Constitutional: WD/WN, vitals as above Neck: trachea midline, no thyromegaly normal visual inspection Respiratory: normal respiratory effort, lungs clear to auscultation no labored breathing Cardiovascular: Rate/Rhythm: regular rate and regular rhythm Heart Sounds: normal S1 Vessels: no JVD Extremities: no edema Gastrointestinal (Abdomen): normal bowel sounds, soft, nontender, no hepatosplenomegaly Neurologic: PERRL, EOMI, accommodation nl, no face palsy, no dysarthria Results & Data Vital Signs (Past 12 Hours) Vital Signs Temp Pulse Pulse Resp BP BP Pulse Ox 02/04/23 07:39 36.8 C 87 20 122/80 90 02/04/23 04:00 37.1 C 95 H 16 116/69 92 02/03/23 23:31 91 02/03/23 23:19 77 O2 Del Method O2 Flow Rate 02/04/23 07:39 Nasal Cannula 2 02/04/23 04:00 Nasal Cannula 3 02/03/23 23:31 Nasal Cannula 3 02/03/23 23:19 Laboratory Results Cardiac Enzymes 02/03/23 02/03/23 02/04/23 Range/Units 16:15 19:47 06:16 Troponin I High Sens 39.9 H 38.4 H 33.8 H (0-14) pg/ml CBC 02/04/23 Range/Units 06:16 WBC 13.65 H (4.8-10.8) K/ul RBC 4.52 (4.20-5.40) M/uL Hgb 14.8 (12.0-16.0) g/dl Hct 45.6 (37.0-47.0) % Plt Count 165 (130-400) K/uL Comprehensive Metabolic Panel 02/04/23 Range/Units 06:16 Sodium 139 (136-145) mmol/L Potassium 4.1 (3.5-5.1) mmol/L Chloride 113 H (98-107) mmol/L Carbon Dioxide 19 L (21-32) mmol/L BUN 10 (6-23) mg/dl Creatinine 0.42 L (0.6-1.2) mg/dl Glucose 78 (70-99(Fasting)) mg/dl Calcium 8.8 (8.6-10.3) mg/dl Intake and Output 02/03/23 02/04/23 02/04/23 22:59 06:59 14:59 Intake Total 100 / 1250 50 / 1250 Output Total 250 / 754 Balance 100 / 496 -200 / 496 Intake: IV 100 / 1200 Acetaminophen 1,000 mg In 100 100 / 200 ml @ 400 mls/hr IV Q8H PRN Rx#: [id number] Oral 50 / 50 Output: Urine 250 / 750 Other: Other Intake Source npo # Unmeasured Voids 3 Weight 53.5 kg 56.9 kg Weight Measurement Method Built in [facility] Diagnostic Findings Telemetry reviewed - NSR in the 70-80's; One episode of PAT noted at 20:18 last night lasting 9 seconds EKG reviewed from 02/03/23: Normal sinus rhythm with sinus arrhythmia Low voltage QRS Septal infarct (cited on or before 08-NOV-2022) Medications Administered Current Inpatient Medications Acetaminophen (Acetaminophen 325 Mg Tab) 650 mg PO Q4H PRN PRN Reason: Moderate Pain (Scale 4, 5, 6) Stop: 03/02/23 18:16 Last Admin: 02/01/23 12:19 Dose: 650 mg Hydrocodone Bitart/Acetaminophen (Hydrocodone/Acetamophen 5/325mg Tab) 1 tab PO Q6H PRN PRN Reason: Pain Stop: 02/16/23 09:36 Last Admin: 02/04/23 04:45 Dose: 1 tab Atorvastatin Calcium (Atorvastatin 10 Mg Tab) [facility] Stop: 03/03/23 08:59 Last Admin: 02/04/23 08:25 Dose: 10 mg Pantoprazole Sodium 40 mg/ (Syringe) 10 mls @ 5 mls/min IV BID [facility] Stop: 03/02/23 20:59 Last Admin: 02/04/23 08:22 Dose: 5 mls/min Acetaminophen (Ofirmev) 1,000 mg in 100 mls @ 400 mls/hr IV Q8H PRN PRN Reason: Moderate Pain (Scale 4, 5, 6) Stop: 02/04/23 15:37 Last Infusion: 02/03/23 21:05 Dose: Infused Isosorbide Mononitrate (Isosorbide [place] Extended Rel 30 Mg Tabcr) 30 mg PO [facility] Stop: 03/05/23 06:44 Last Admin: 02/04/23 08:22 Dose: 30 mg Lidocaine (Lidocaine 5% 1 Patch) 1 patch TD [facility] Stop: 03/03/23 15:44 Last Admin: 02/04/23 08:24 Dose: 1 patch Lorazepam (Lorazepam 0.5 Mg Tab) 0.25 mg PO TID PRN PRN Reason: Anxiety Stop: 03/02/23 20:38 Last Admin: 02/03/23 13:25 Dose: 0.25 mg Melatonin (Melatonin 3 Mg Tab) 3 mg PO HS PRN PRN Reason: Sleep Stop: 03/03/23 19:53 Last Admin: 02/03/23 20:16 Dose: 3 mg Metoprolol Succinate (Metoprolol Succ 25mg Ext Rel Tab) 25 mg PO [facility]AJ[facility] Stop: 03/03/23 08:59 Last Admin: 02/04/23 08:24 Dose: 25 mg Miscellaneous (Remove Lidoderm Patch) 1 each N/A DAILY@2100 [facility] Stop: 03/03/23 20:59 Last Admin: 02/03/23 20:17 Dose: 1 each Morphine Sulfate (Morphine Sulfate 4 Mg/Ml 1 Ml Carp\Vial) 2 mg IV Q3H PRN PRN Reason: Pain Stop: 02/17/23 06:04 Last Admin: 02/04/23 09:13 Dose: 2 mg Nitroglycerin (Nitroglycerin Sl 0.4 Mg/Tab Tab) 0.4 mg SL Q5M PRN PRN Reason: Chest Pain Stop: 03/04/23 22:34 Last Admin: 02/03/23 14:05 Dose: 0.4 mg Nitroglycerin (Nitroglycerin 2% Ointment 30gm Tube) 1 inch EXT Q6H REJI Stop: 03/05/23 15:59 Last Admin: 02/04/23 10:09 Dose: 1 inch Ondansetron HCl (Ondansetron Inj 2 Mg/Ml 2 Ml Vial) 4 mg IV Q4H PRN PRN Reason: Nausea And Vomiting Stop: 03/02/23 18:16 Last Admin: 02/03/23 21:30 Dose: 4 mg Trazodone HCl (Trazodone Hcl 100 Mg Tab) 200 mg PO HS REJI Stop: 03/02/23 20:59 Last Admin: 02/03/23 20:16 Dose: 200 mg (3) Chest pain Chest pain type: unspecified Qualified Code(s): R07.9 - Chest pain, unspecified
[2023-02-04] MEDS ORDERED: PROPOFOL IV EMULSION 10 MG/ML 20 ML VIAL IV ONE (10:55)
[2023-02-04] MEDS ORDERED: LIDOCAINE 2% 2 ML VIAL/AMP(20MG/ML) INFIL ONE (10:55)
--- NOTE | 2023-02-04 11:25 | Hospitalist Progress Note ---
Date of Service February 04, 2023 Assessment & Plan (1) BRBPR (bright red blood per rectum): (2) Paroxysmal atrial fibrillation: (3) prison (current) use of anticoagulants: (4) History of back pain: (5) GERD (gastroesophageal reflux disease): (6) Gastric ulcer: Plan: Patient is a 77 yr female with H/O PAF on Eliquis, valvular heart disease [moderate to severe MR/mild TR/TTE 2022], chronic back pain s/p surgery and intrathecal pump placement, GERD, mood disorder, ongoing tobacco abuse, who was admitted in November 2022 to [facility] for chest pain rule out and underwent stress testing which was equivocal. She has been on Eliquis since Feb 2022 when she was admitted with afib RVR. Patient presented with 1 week of nausea and abdominal discomfort, and 3 days of bright red/dark red clots of blood per rectum. She is moving her bowels 2-3 x daily in the past 3 days. Reports nausea intermittently, and that she is has vomited once daily in the past week, but no bloody emesis or coffee ground emesis. Denies hx of hemorrhoids or diverticulosis. Appetite has been poor. Acute GI bleed/Rectal Bleeding In setting of Eliquis, Excedrin use Likely due to hemorrhoids H/O Gastric Ulcer --CT ABD:Exam significantly compromised by artifact and difficulty positioning, as described above. No definite acute findings within the abdomen or pelvis. Hold Eliquis, avoid NSAIDs for now --S/P 1 unit PRBCs --S/P Colonoscopy:The rectum, sigmoid colon, descending colon, splenic flexure, transverse colon, hepatic flexure, ascending colon, cecum and recto-sigmoid colon are normal. No specimens collected. Continue Protonix Monitor H&H and transfuse PRBCs as needed Appreciate GI input Started on stool softener Hb stable Hypotension ? Dehydration due to above DD: Narcotics could be contributing (On Intrathecal pain pump) No obvious source of infection Normal lactate, cortisol --CT Lumbar:No definite acute fractures within the lumbar spine. Subcutaneous contusions of the lower back, as shown on CT of January 31, 2023. Nearly nondiagnostic evaluation of the central canal due to CT technique and artifact. However, no additional fluid collections identified. Low Prealbumin --Blood cultures negative to date Continue IV fluids as needed Minimize narcotics as able Monitor BP closely Chest pain Equivocal stress test in November. Refused cardiac cath at that time. EKG showed nonspecific T wave changes DD: Demand ischemia from anemia, angina Echo showed no regional wall motion abnormality Continue isosorbide, metoprolol, Lipitor Nitroglycerin discontinued Appreciate cardiology input Monitor troponin levels Cardiology to consider cardiac catheterization if recurrence of symptoms Chronic Back Pain - Back stimulator in place - PT/OT consults, uses walker at baseline Fall precautions Minimize narcotics as likely contributing to Hypotension Appreciate pain management input Paroxysmal Afib Valvular Heart disease Moderate MR/ Mild TR Continue metoprolol with holding parameters Hold Eliquis Resume diuretics as able Tobacco Use - Smokes 1 ppd since she was a teenager, ~60 pack year hx - Cessation encouraged Refused nicotine patch. Migraine - Hold Excedrin Insomnia on Trazodone DVT Px: SCDs Re:GI bleed CODE STATUS DNR/DNI Admission and Anticipated Discharge Date Admission Date: January 31, 2023 Subjective Patient is seen and examined at bedside States feeling a lot better today Plan for colonoscopy today Denies any chest pain this morning Reports having chronic back pain, controlled Denies any bleeding issues, nausea, vomiting today No other complaints Review of Systems Review of Systems: All systems reviewed & are unremarkable except as noted in Subjective Physical Exam Physical Exam: Physical Exam: Vitals signs as noted above General Appearance:Thin, frail, no apparent distress, drowsy, chronic ill appearing Head: normocephalic, Atraumatic Eyes: normal inspection, EOMI Neck: supple, Trachea midline Respiratory/Chest: Decreased breath sounds, CTA, No accessory muscle use Cardiovascular: S1, S2, + murmur Abdomen/GI:Soft, Non tender, Bowel sounds present Back+ ecchymotic lesion Extremities/Musculoskeletal:normal inspection, 1+ pedal edema Neurologic/Psych:AAOX3, grossly no focal neurological deficits Skin: normal color, warm Results & Data Results & Data Vital Signs (Past 12 Hours) Vital Signs Temp Pulse Resp BP BP Pulse Ox O2 Del Method 02/04/23 10:43 36.8 C 78 18 134/78 94 Room Air 02/04/23 07:39 36.8 C 87 20 122/80 90 Nasal Cannula 02/04/23 04:00 37.1 C 95 H 16 116/69 92 Nasal Cannula 02/03/23 23:31 91 Nasal Cannula O2 Flow Rate 02/04/23 10:43 02/04/23 07:39 2 02/04/23 04:00 3 02/03/23 23:31 3 Laboratory Results Short CBC 02/04/23 Range/Units 06:16 WBC 13.65 H (4.8-10.8) K/ul Hgb 14.8 (12.0-16.0) g/dl Hct 45.6 (37.0-47.0) % Plt Count 165 (130-400) K/uL BMP 02/04/23 06:16 Sodium 139 Potassium 4.1 Chloride 113 H Carbon Dioxide 19 L BUN 10 Creatinine 0.42 L Glucose 78 Calcium 8.8
--- NOTE | 2023-02-04 11:44 | History & Physical Report ---
Date of Service February 04, 2023 Assessment & Plan (1) Encounter for pre-operative examination: Plan: Pleasant lady with rectal bleeding who needs colonoscopy. Procedure and risks discussed. She agrees Admission and Anticipated Discharge Date Admission Date: January 31, 2023 History of Present Illness Chief Complaint: rectal bleeding Primary Care Provider: Casey Rodgers 77 year old female with rectal bleeding. She is having colonoscopy Allergies Allergy/AdvReac Type Severity Reaction Status Date / Time chlorhexidine Allergy Mild Rash Verified 01/31/23 17:22 fluconazole [From Diflucan] AdvReac Severe Diarrhea Verified 01/31/23 17:22 (with oral) hydrochlorothiazide AdvReac Intermediate Pancreatiti Verified 01/31/23 17:22 s ondansetron [From Zofran] AdvReac Intermediate Headaches Verified 01/31/23 17:22 Home Medications Medication Instructions Recorded Confirmed Type multivitamin 1 tab PO QAM 02/05/20 01/31/23 History omeprazole 20 mg tablet,delayed 20 mg PO QPM 01/20/22 01/31/23 History release rizatriptan 10 mg tablet 10 mg PO UD PRN Migraine Headache 01/20/22 01/31/23 History trazodone 100 mg tablet 200 mg PO HS 01/20/22 01/31/23 History apixaban 5 mg tablet (Eliquis) 5 mg PO BID 04/22/22 01/31/23 History hydrocodone 10 mg-acetaminophen 1 tab PO Q6 PRN Pain 04/22/22 01/31/23 History 325 mg tablet promethazine 12.5 mg tablet 12.5 mg PO Q6H PRN Nausea 06/08/22 01/31/23 History atorvastatin 10 mg tablet 10 mg PO QAM #30 tabs 11/10/22 01/31/23 Rx isosorbide mononitrate 30 mg 30 mg PO QAM #30 tabs 11/10/22 01/31/23 Rx tablet,extended release 24 hr Hydromorphone Pain Pump 0 mg INJ DIRECTED 01/31/23 01/31/23 History gzcixlc-sjazvpyehdyil-uwilglvh 250 2 tab PO Q6H PRN Migraine Headache 01/31/23 01/31/23 History mg-250 mg-65 mg tablet (Excedrin Migraine) rtjeayuvke-spntcttqplovo-anrqiwkb 1 tab PO TID PRN Migraine Headache 01/31/23 01/31/23 History 50 mg-325 mg-40 mg tablet calcium carbonate 600 mg-vitamin 1 tab PO DAILY 01/31/23 01/31/23 History D3 10 mcg (400 unit) tablet (Calcium 600 + D(3)) furosemide 20 mg tablet (Lasix) 20 mg PO 5XWK 01/31/23 01/31/23 History metoprolol succinate 25 mg 25 mg PO QAM 01/31/23 01/31/23 History tablet,extended release 24 hr spironolactone 25 mg tablet 25 mg PO 3XWK 01/31/23 01/31/23 History Past Med/Surg History Medical History Atrial fibrillation Depression Encounter for pre-operative examination Fracture, tibia, with fibula Gastric ulcer Gastritis "Getting under control" GERD (gastroesophageal reflux disease) Hiatal hernia History of blood transfusion Pt reports post-op after hip surgery and lumbar surgery History of syncope Previously followed with cardiology, per Dr Lockhart ([facility]), "syncope in the setting of polypharmacy for severe low back pain." Last seen by cardio 11/2018, to follow up PRN per cardio. Migraine MVP (mitral valve prolapse) Not noted on 03/2016 echo (Mild MR was present) Opiate dependence Pancreatitis Approximately 2018 Postlaminectomy syndrome of lumbosacral region Postlaminectomy syndrome of thoracic region Recurrent UTI Surgical History H/O spinal fusion Extensive [id number] (x2 lumbar fusions) History of anesthesia reaction "severe hypotension" per patient following second back surgery. ([facility] 2017). Review of records shows documentation from anesthesia that hypotension was treated in PACU, BP in post-anesthetic evaluation 92/51. Subsequent intrathecal pain pump (03/19/20): Grade view 1, MAC#3, ETT 6.5 at [facility] without issue noted per post-op anesthesia progress note/discharge summary. History of appendectomy History of cardiac cath Approximately 1994 > no stents History of cataract surgery R/L History of cholecystectomy History of colonoscopy History of dilatation and curettage History of esophagogastroduodenoscopy (EGD) History of hip surgery Right hip History of open reduction and internal fixation (ORIF) procedure Left hip S/P hardware removal Left hip x2 S/P CECILIA-BSO Family History Mother Family history of diabetes mellitus Grandmother (Maternal) Family history of diabetes mellitus Grandmother (Paternal) Family history of diabetes mellitus Other No family history of adverse response to anesthesia Social History Smoking Status: Current every day smoker Tobacco Type: Cigarettes packs per day: 0.5; Cigarettes Per Day: 10; Second Hand Exposure: Yes; Do You Dip or Chew Tobacco: No; Hx Alcohol Use: No Hx Substance Use: No Preferred Language: Lebanese Communication Ability: Effective Visual Impairment: No Limitations Hearing Ability: Normal 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 Beliefs That Will Affect Care: None marital status: Current Living Situation: Spouse Current Living Situation Comment: w/ current occupational status: retired Other Information That Helps Us Care for You: No Feels Safe at Home: Yes Safety Concerns: Feels Safe At This Time Assistive Devices: Walker Physical Exam Constitutional: WD/WN, vitals as above Respiratory: normal respiratory effort, lungs clear to auscultation Cardiovascular: RRR, no murmur, no edema ASA Classification ASA ASA3 Results & Data Vital Signs (Past 12 Hours) Vital Signs Temp Pulse Pulse Resp BP BP Pulse Ox 02/04/23 08:00 92 H 02/04/23 10:43 36.8 C 78 18 134/78 94 02/04/23 07:39 36.8 C 87 20 122/80 90 02/04/23 04:00 37.1 C 95 H 16 116/69 92 O2 Del Method O2 Flow Rate 02/04/23 08:00 02/04/23 10:43 Room Air 02/04/23 07:39 Nasal Cannula 2 02/04/23 04:00 Nasal Cannula 3 Code Status & VTE Plan VTE Prophylaxis Plan VTE Prophylaxis will be ordered: Yes
--- NOTE | 2023-02-04 12:12 | GI REPORT ---
Patient Name: Alexia Campos Procedure Date: 02/04/2023 11:48 AM Date of : 1945 Admit Type: Inpatient Age: 77 Gender: Female Attending MD: Leelee Rodriguez MD, Procedure: Colonoscopy Providers: Leelee Rodriguez MD Referring MD: Giovanni Vela Md Indications: Rectal bleeding Medicines: Propofol per Anesthesia Complications: No immediate complications. Estimated Blood Loss: Estimated blood loss: none. Procedure: Pre-Anesthesia Assessment: - Prior to the procedure, a History and Physical was performed, and patient medications and allergies were reviewed. The patient's tolerance of previous anesthesia was also reviewed. The risks and benefits of the procedure and the sedation options and risks were discussed with the patient. All questions were answered, and informed consent was obtained. Prior Anticoagulants: The patient has taken no anticoagulant or antiplatelet agents. ASA Grade Assessment: III - A patient with severe systemic disease. After reviewing the risks and benefits, the patient was deemed in satisfactory condition to undergo the procedure. After I obtained informed consent, the scope was passed under direct vision. Throughout the procedure, the patient's blood pressure, pulse, and oxygen saturations were monitored continuously. The Colonoscope was introduced through the anus and advanced to the cecum, identified by appendiceal orifice and ileocecal valve. The colonoscopy was performed with moderate difficulty due to a redundant colon, significant looping and a tortuous colon. Successful completion of the procedure was aided by withdrawing and reinserting the scope. The patient tolerated the procedure well. The quality of the bowel preparation was evaluated using the BBPS (Kent Bowel Preparation Scale) with scores of: Right Colon = 3, Transverse Colon = 3 and Left Colon = 3 (entire mucosa seen well with no residual staining, small fragments of stool or opaque liquid). The total BBPS score equals 9. The ileocecal valve, appendiceal orifice, and rectum were photographed. Findings: The rectum, recto-sigmoid colon, sigmoid colon, descending colon, splenic flexure, transverse colon, hepatic flexure, ascending colon and cecum appeared normal. Impression: - The rectum, sigmoid colon, descending colon, splenic flexure, transverse colon, hepatic flexure, ascending colon, cecum and recto-sigmoid colon are normal. - No specimens collected. Recommendation: - Return patient to hospital [facility]. Leelee Rodriguez MD 02/04/2023 12:12:21 PM Note Initiated On: 02/04/2023 11:48 AM Number of Addenda: 0 I attest to the content of the Intraoperative Record and orders documented therein, exceptions below {[id number]}
--- NOTE | 2023-02-04 12:28 | Communication Note ---
Date of Service: February 04, 2023 Colonoscopy without blood and worrisome lesions. Suspect bleeding was hemorrhoidal. Okay to go from GI standpoint. If she remains in hospital please call GI for problems as I am off service after today
--- NOTE | 2023-02-04 14:57 | Anesthesiology Progress Note ---
Date of Service February 04, 2023 Anesthesia Post Procedure Vital Signs Vital Signs: Temp Pulse Pulse Pulse Resp BP BP 02/04/23 13:13 36.4 C L 79 16 114/77 02/04/23 12:45 69 16 115/71 02/04/23 12:30 80 16 119/68 02/04/23 12:15 82 16 101/69 02/04/23 11:33 02/04/23 08:00 92 H 02/04/23 10:43 36.8 C 78 18 134/78 02/04/23 07:39 36.8 C 87 20 122/80 02/04/23 04:00 37.1 C 95 H 16 116/69 02/03/23 23:31 02/03/23 22:00 36.6 C 88 18 103/68 02/03/23 23:19 77 02/03/23 22:34 02/03/23 20:56 95 H 20 156/99 H 02/03/23 19:38 36.3 C L 82 22 157/101 H 02/03/23 16:00 64 02/03/23 15:16 36.4 C L 58 L 18 124/72 Pulse Ox O2 Del Method O2 Flow Rate 02/04/23 13:13 94 Room Air 02/04/23 12:45 93 Nasal Cannula 2 02/04/23 12:30 92 Room Air 02/04/23 12:15 97 Room Air 02/04/23 11:33 Room Air 02/04/23 08:00 02/04/23 10:43 94 Room Air 02/04/23 07:39 90 Nasal Cannula 2 02/04/23 04:00 92 Nasal Cannula 3 02/03/23 23:31 91 Nasal Cannula 3 02/03/23 22:00 74 L Room Air 02/03/23 23:19 02/03/23 22:34 Room Air 02/03/23 20:56 02/03/23 19:38 91 Room Air 02/03/23 16:00 02/03/23 15:16 90 Room Air Pain Intensity Back: Pain Intensity: 6 Transfer of Care Handoff Completed per policy Notes Mental Status: alert / awake / arousable and participated in evaluation Patient Amnestic to Procedure: Yes Nausea / Vomiting: adequately controlled Pain: adequately controlled Airway Patency, RR, SpO2: stable & adequate BP & HR: stable & adequate Hydration State: stable & adequate Anesthetic Complications: no major complications apparent
[2023-02-04] MEDS: MELATONIN 3 MG TAB PO PRN (19:29)
[2023-02-04] MEDS: traZODone HCL 100 MG TAB PO SCH (19:30)
[2023-02-04] MEDS: DOCUSATE SODIUM 100 MG CAP PO SCH (19:30)
--- NOTE | 2023-02-04 23:03 | Electrocardiogram Report ---
Test Reason : Blood Pressure : / mmHG Vent. Rate : 079 BPM Atrial Rate : 079 BPM P-R Int : 140 ms QRS Dur : 068 ms QT Int : 370 ms P-R-T Axes : 047 029 039 degrees QTc Int : 424 ms Normal sinus rhythm Low voltage QRS Cannot rule out Anterior infarct (cited on or before 08-NOV-2022) Nonspecific T wave abnormality Abnormal ECG When compared with ECG of 31-JAN-2023 14:58, Questionable change in initial forces of Anteroseptal leads T wave inversion no longer evident in Anterolateral leads Confirmed by Mani Barroso ([id number]) on 02/04/2023 11:03:11 PM Referred By: REFERRED SELF Confirmed By:Mani Barroso
[2023-02-05] MEDS: HYDROCODONE/ACETAMOPHEN 5/325MG TAB PO PRN ×2 (01:23→08:37)
--- NOTE | 2023-02-05 05:57 | Electrocardiogram Report ---
Test Reason : Blood Pressure : / mmHG Vent. Rate : 083 BPM Atrial Rate : 083 BPM P-R Int : 134 ms QRS Dur : 066 ms QT Int : 352 ms P-R-T Axes : 043 054 059 degrees QTc Int : 413 ms Normal sinus rhythm Low voltage QRS Septal infarct (cited on or before 08-NOV-2022) Abnormal ECG When compared with ECG of 02-FEB-2023 21:07, Questionable change in initial forces of Septal leads Confirmed by Mani Barroso ([id number]) on 02/05/2023 5:56:42 AM Referred By: REFERRED SELF Confirmed By:Mani Barroso
[2023-02-05 07:00] LABS: Hematocrit (blood only) 39.5 % (37.0-47.0); Mean Corpuscular Hemoglobin 32.5 pg (25.0-34.0); Mean Corpuscular Hgb Conc 32.9 g/dL (32.0-36.0); Mean Corpuscular Volume 98.8 fL (80.0-100.0); Mean Platelet Volume 11.1 fL (9.4-12.4); Platelet Count 144 K/uL (130-400); RDW Coefficient of Variation 16.2 % (11.5-14.5); RDW Standard Deviation 59.5 fL (36.4-46.3); White Blood Count 9.74 K/ul (4.8-10.8)
[2023-02-05 07:17] LABS: BUN Creatinine Ratio 22.2 (10-20); Creatinine Clr Calc Pharmacy 64.8 ml/min; Est GFR (African American) 104.8 ml/min; Est GFR (Non-African American) 90.4 ml/min
[2023-02-05] MEDS: PANTOprazole 40 MG in SYRINGE 0 ML IV SCH (08:32)
[2023-02-05] MEDS: METOPROLOL SUCC 25MG EXT REL TAB PO SCH (08:33)
[2023-02-05] MEDS: LIDOCAINE 5% 1 PATCH TD SCH (08:33)
[2023-02-05] MEDS: ATORVASTATIN 10 MG TAB PO SCH (08:33)
[2023-02-05] MEDS: ISOSORBIDE MONO EXTENDED REL 30 MG TABCR PO SCH (08:33)
[2023-02-05] MEDS: DOCUSATE SODIUM 100 MG CAP PO SCH (08:34)
[2023-02-05] MEDS ORDERED: WARFARIN SOD 5 MG TAB PO ONE (08:59)
[2023-02-05] MEDS ORDERED: INFLUENZA VACCINE HIGH-DOSE (HD-IIV4) PF 65+ 0.7mL SYR IM ONE (09:00)
--- NOTE | 2023-02-05 09:06 | Cardiology Progress Note ---
Date of Service February 05, 2023 Assessment & Plan (1) Symptomatic anemia: (2) BRBPR (bright red blood per rectum): (3) Chest pain: Plan Patient admitted with concerns for GI bleed after several days of BRBPR. During admission, patient had several episodes of substernal chest p ain/pressure. Troponin minimally elevated but flat. EKG without acute changes demonstrating NSR with low voltage QRS and flattened T waves, but similar to past EKG's. Echo this admission with preserved LVEF and no wall motion abnormalities. Her episodes of chest pain during admission, seem to be related to her chronic pain syncope and reproducible with palpation to the chest wall. --Colonoscopy on 02/04/23 without source of bleeding. GI suggests bleeding was due to hemorrhoidal bleeding. --Patient feeling well. We discussed options of treatment for her AF and chest pain. --Due to cost concerns with out of pocket cost of over $400 /month for Eliquis for her and her will transition to coumadin , and refer to [facility] antico[facility]. --A discussion took plan yesterday, and again today and through a process of shared decision making will continue medical management for her chest pain. No aspirin. Continue metoprolol, Imder, atorvastatin. . Admission and Anticipated Discharge Date Admission Date: January 31, 2023 Subjective Pt seen in cardiology follow up. She rested well overnight. Denies chest pain. Physical Exam Constitutional: WD/WN, vitals as above Neck: trachea midline, no thyromegaly normal visual inspection Respiratory: normal respiratory effort, lungs clear to auscultation no labored breathing Cardiovascular: Rate/Rhythm: regular rate and regular rhythm Heart Sounds: normal S1 Vessels: no JVD Extremities: no edema Gastrointestinal (Abdomen): normal bowel sounds, soft, nontender, no hepat osplenomegaly Neurologic: PERRL, EOMI, accommodation nl, no face palsy, no dysarthria Results & Data Vital Signs (Past 12 Hours) Vital Signs Temp Pulse Pulse Resp BP BP Pulse Ox 02/05/23 08:13 36.7 C 62 18 106/69 95 02/05/23 07:15 36.7 C 62 19 121/80 95 02/05/23 04:01 36.7 C 59 L 19 100/53 L 95 02/05/23 00:00 62 02/04/23 23:50 36.8 C 71 16 95 02/04/23 21:22 O2 Del Method O2 Flow Rate 02/05/23 08:13 Nasal Cannula 2 02/05/23 07:15 2 02/05/23 04:01 Nasal Cannula 2 02/05/23 00:00 02/04/23 23:50 Nasal Cannula 2 02/04/23 21:22 Nasal Cannula 3 Laboratory Results CBC 02/05/23 Range/Units 06:10 WBC 9.74 (4.8-10.8) K/ul RBC 4.00 L (4.20-5.40) M/uL Hgb 13.0 (12.0-16.0) g/dl Hct 39.5 (37.0-47.0) % Plt Count 144 (130-400) K/uL Comprehensive Metabolic Panel 02/05/23 Range/Units 06:10 Sodium 140 (136-145) mmol/L Potassium 4.0 (3.5-5.1) mmol/L Chloride 113 H (98-107) mmol/L Carbon Dioxide 22 (21-32) mmol/L BUN 12 (6-23) mg/dl Creatinine 0.54 L (0.6-1.2) mg/dl Glucose 86 (70-99(Fasting)) mg/dl Calcium 8.0 L (8.6-10.3) mg/dl Intake and Output 02/04/23 02/05/23 02/05/23 22:59 06:59 14:59 Intake Total 120 / 120 Output Total 2 / 5 Balance 118 / 115 Intake: Oral 120 / 120 Output: # Bowel Movements 2 / 5 Other: # Unmeasured Voids 1 1 Weight 56.9 kg Weight Measurement Method Built in [facility] (3) Chest pain Chest pain type: unspecified Qualified Code(s): R07.9 - Chest pain, unspecified
--- NOTE | 2023-02-05 17:11 | Discharge Summary ---
Date of Service February 05, 2023 Admission HPI Per Admitting Provider This is a 77 yo F with PMH of PAF on Eliquis, valvular heart disease [moderate to severe MR/mild TR/TTE 2022], chronic back pain s/p surgery and intrathecal pump placement, GERD, mood disorder, ongoing tobacco abuse, who was admitted in November 2022 to [facility] for chest pain rule out and underwent stress testing which was equivocal. She has been on Eliquis since Feb 2022 when she was admitted with afib RVR. Today patient presents to the ER due to 1 week of nausea and abdominal discomfort, and 3 days of bright red/dark red clots of blood per rectum. She is moving her bowels 2-3 x daily in the past 3 days. Reports nausea intermittently, and that she is has vomited once daily in the past week, but no bloody emesis or coffee ground emesis. Denies hx of hemorrhoids or diverticulosis. She denies lightheadedness and dizziness. Pt has been drinking fluids but not interested in food. She notes a hx of hiatal hernia, and large gastric ulcer which was several years ago and followed with lead refinery supervisor, Dr. Panchal in [place], but has not seen him in many years. Pt notes having colonoscopies and EGD but these were also many years ago. Pt does not take baby aspirin any more, but does use Excedrin migraine many days per month- she took it today, and reports having about 15 migraines per month. Also notes having a large ecchymotic lesion over her buttocks, which she did not notice was there. Pt denies any trauma or injury to the area, and that she sleeps in a hospital bed at home. Her lives with her and noticed it. She lives at home with her and has been taking all medication as directed. Last dose of Eliquis was this morning. Admission Exam Per Admitting Provider General: awake, alert, no apparent distress, thin white female Head: Normocephalic, atraumatic ENT: PERRL, EOMI, no pharyngeal exudate, mucous membranes dry Chest: + Faint rales on exam bilaterally, on 2L via NC, no wheezing or crackles Cardiac: irregularly irregular, rate controlled, + systolic ejection murmur, no JVD, normal peripheral pulses, good capillary refill Back: Spinal process deformity healed ( pt states from failed spinal surgery), kyphosis, + large ecchymotic lesion developing over lumbar region Abdominal: NABS x 4 quadrants, soft, nondistended, nontender to palpation, no rebound or guarding Extremities: Normal inspection, no peripheral edema or erythema, calfs nontender to palpation Psych: Normal mood and affect Neuro: AAO x 3, strength intact bilaterally and rated 5/5, no motor deficits, speech is clear, no peripheral sensory deficits Principal Diagnosis BRBPR suspected hemorrhoidal, Paroxysmal atrial fibrillation, Chronic back pain on intrathecal pump Discharge Exam General: Sitting comfortably in bed, not in distress, on room air HEENT: EOMI, ZACHARIAH, MMM Chest: Clear breath sounds bilaterally, no wheezes or crackles CVS: Regular rate and rhythm, normal heart sounds, no murmur Abdomen: Soft, non tender, not distended, normal bowel sounds Neuro: Awake, alert, oriented, conversing well, non focal Extremities: No cyanosis, clubbing or edema Discharge Data Allergies Allergy/AdvReac Type Severity Reaction Status Date / Time chlorhexidine Allergy Mild Rash Verified 01/31/23 17:22 fluconazole [From Diflucan] AdvReac Severe Diarrhea Verified 01/31/23 17:22 (with oral) hydrochlorothiazide AdvReac Intermediate Pancreatiti Verified 01/31/23 17:22 s ondansetron [From Zofran] AdvReac Intermediate Headaches Verified 01/31/23 17:22 Consultations 01/31/23 17:06 ED Decision to Admit Stat 01/31/23 17:19 Consult Gastroenterology Routine 02/02/23 21:29 Consult Cardiology Routine 02/03/23 18:16 Consult Pain Management Routine Procedures Performed Operation Date: 02/04/23 17:00 <No data on this case meets the specified criteria> Ordered Studies 01/31/23 14:42 CT abd pelvis IV con only Stat 02/01/23 13:16 CT lumbar spine wo con Urgent Laboratory Results WBC 9.74 K/ul (4.8-10.8) 02/05/23 06:10 RBC 4.00 M/uL (4.20-5.40) L 02/05/23 06:10 Hgb 13.0 g/dl (12.0-16.0) 02/05/23 06:10 Hct 39.5 % (37.0-47.0) 02/05/23 06:10 MCV 98.8 fL (80.0-100.0) 02/05/23 06:10 MCH 32.5 pg (25.0-34.0) 02/05/23 06:10 MCHC 32.9 g/dL (32.0-36.0) 02/05/23 06:10 RDW Std Deviation 59.5 fL (36.4-46.3) H 02/05/23 06:10 RDW Coeff of Oilver 16.2 % (11.5-14.5) H 02/05/23 06:10 Plt Count 144 K/uL (130-400) 02/05/23 06:10 MPV 11.1 fL (9.4-12.4) 02/05/23 06:10 Immature Gran % (Auto) 1.0 % 02/03/23 07:03 Neut % (Auto) 86.3 % 02/03/23 07:03 Lymph % (Auto) 7.0 % 02/03/23 07:03 [place] % (Auto) 4.9 % 02/03/23 07:03 Eos % (Auto) 0.4 % 02/03/23 07:03 Baso % (Auto) 0.4 % 02/03/23 07:03 Neut # (Auto) 9.60 K/uL (1.40-6.50) H 02/03/23 07:03 Lymph # (Auto) 0.78 K/uL (1.20-3.40) L 02/03/23 07:03 [place] # (Auto) 0.55 K/uL (0.11-0.59) 02/03/23 07:03 Eos # (Auto) 0.05 K/uL (0.00-0.50) 02/03/23 07:03 Baso # (Auto) 0.04 K/uL (0.00-0.20) 02/03/23 07:03 Immature Gran # (Auto) 0.11 K/uL (0.01-0.20) 02/03/23 07:03 PT 10.7 Seconds (9.0-12.0) 01/31/23 14:15 INR 1.0 (0.9-1.1) 01/31/23 14:15 APTT 33.1 Seconds (21.0-31.0) H 02/03/23 07:03 PTT Ratio 1.2 02/03/23 07:03 Sodium 140 mmol/L (136-145) 02/05/23 06:10 Potassium 4.0 mmol/L (3.5-5.1) 02/05/23 06:10 Chloride 113 mmol/L (98-107) H 02/05/23 06:10 Carbon Dioxide 22 mmol/L (21-32) 02/05/23 06:10 Anion Gap 5 (3-11) 02/05/23 06:10 BUN 12 mg/dl (6-23) 02/05/23 06:10 Creatinine 0.54 mg/dl (0.6-1.2) L 02/05/23 06:10 Est Cr Clr Drug Dosing 64.8 ml/min 02/05/23 06:10 Est GFR ( Amer) 104.8 ml/min 02/05/23 06:10 Est GFR (Non-Af Amer) 90.4 ml/min 02/05/23 06:10 BUN/Creatinine Ratio 22.2 (10-20) H 02/05/23 06:10 Glucose 86 mg/dl (70-99(Fasting)) 02/05/23 06:10 Lactate 0.7 mmol/L (0.4-2.0) 02/01/23 23:08 Calcium 8.0 mg/dl (8.6-10.3) L 02/05/23 06:10 Magnesium 2.0 mg/dl (1.7-2.4) 02/04/23 06:16 Total Bilirubin 0.8 mg/dl (0.2-1.0) 01/31/23 14:15 AST 13 U/L (13-39) 01/31/23 14:15 ALT 10 U/L (7-52) 01/31/23 14:15 Alkaline Phosphatase 77 U/L (34-104) 01/31/23 14:15 Troponin I High Sens 33.8 pg/ml (0-14) H 02/04/23 06:16 Total Protein 6.6 gm/dl (6.0-8.3) 01/31/23 14:15 Albumin 3.9 gm/dl (3.4-5.0) 01/31/23 14:15 Globulin 2.7 gm/dl (2.5-4.0) 01/31/23 14:15 Albumin/Globulin Ratio 1.4 (0.9-2) 01/31/23 14:15 Prealbumin 13.2 mg/dl (20-40) L 02/02/23 07:26 Lipase 89 U/L (11-82) H 01/31/23 14:15 Random Cortisol 6.48 mcg/dl 02/01/23 07:00 Stool Occult Bld Scrn Negative (Negative) 02/01/23 08:50 SARS-CoV-2, RNA, NAAT NEGATIVE (NEGATIVE) 01/31/23 Unknown Blood Type A Positive 01/31/23 14:15 Antibody Screen NEGATIVE 01/31/23 14:15 Crossmatch See Detail 01/31/23 14:15 Impressions Abdomen/Pelvis CT 01/31/23 14:42 CT OF THE ABDOMEN AND PELVIS WITH CONTRAST CLINICAL HISTORY: bloody stool, large lumbar contusion, on eliquis COMPARISON STUDY: KUB August 08, 2021. TECHNIQUE: Following IV administration of 89 mL of Optiray, axial images of the abdomen and pelvis were obtained from the lung bases to the proximal femurs. Images were reviewed in the axial, sagittal, and coronal planes. IV contrast was administered without complication. Automated exposure control was utilized for the study. A dose lowering technique was utilized adhering to the principles of ALARA. CT DOSE: 341.28 mGy.cm FINDINGS: This exam is significantly compromised by streak artifact from spinal hardware and intrathecal catheter and difficulty positioning. No hemoperitoneum or pneumoperitoneum is noted. Liver, spleen, adrenal glands, kidneys and pancreas are grossly unremarkable with the exception of a few suspected renal cysts. There is no hydronephrosis. There is no biliary or pancreatic ductal dilatation status post cholecystectomy. There is no evidence for a bowel obstruction. There is no free fluid. Sensitivity for detection of acute fractures is markedly diminished due to artifact but no definite acute fractures are present. There are several old thoracic spine compression deformities. Multiple subcutaneous contusions of the lower back are noted. No active extrava sation is identified. Right femoral internal fixation is partially imaged IMPRESSION: 1. Exam significantly compromised by artifact and difficulty positioning, as described above. No definite acute findings within the abdomen or pelvis. 2. Multiple subcutaneous contusions of the lower back, as described above. No active extravasation identified. 3. Nearly nondiagnostic evaluation of the thoracolumbar spine given artifact. No definite acute fractures. Several old thoracic spine fractures. ACT 112: Negative or not required by law. Electronically signed by: Nitish Singleton M.D. 01/31/2023 4:[address] 02/01/23 13:16 CT OF THE LUMBAR SPINE CLINICAL HISTORY: ? Trauma, R/O hematoma COMPARISON STUDY: Thoracolumbar spine radiographs June 29, 2022. CT of the abdomen and pelvis January 31, 2023. TECHNIQUE: Helical axial images of the lumbar spine were obtained. Sagittal and coronal reconstructions were viewed. Automated exposure control was utilized for the study. A dose lowering technique was utilized adhering to the principles of ALARA. FINDINGS: This exam is significantly compromised by streak artifact from the spinal hardware. Intrathecal catheter is in place. The tip is above the upper aspect of this study. Sensitivity for detection of fractures within the lumbar spine is diminished but none are identified. Multilevel discectomy, posterior decompression and pedicle screw fusion is noted. The fusion is partially imaged. Sacroiliac joints are intact. Suspected subcutaneous contusions of the lower back are again noted, as shown on CT of January 31, 2023. A left lower back contusion measures approximately 6 x 2 x 6.9 cm. A right lower back contusion measures approximately 4.4 x 2.2 x 5.2 cm. Evaluation of the central canal and epidural space is nearly nondiagnostic but no large hematoma is identified. Paravertebral soft tissues are unremarkable. A moderate amount of stool is noted within visualized portions of the colon. IMPRESSION: 1. Exam significantly compromised by streak artifact from spinal hardware, as described above. No definite acute fractures within the lumbar spine. 2. Subcutaneous contusions of the lower back, as shown on CT of January 31, 2023. 3. Nearly nondiagnostic evaluation of the central canal due to CT technique and artifact. However, no additional fluid collections identified. ACT 112: Negative or not required by law. Electronically signed by: Nitish Singleton M.D. 02/01/2023 3:16 PM Chest X-Ray 02/03/23 00:38 XR chest 1V portable HISTORY: Atypical chest pain. COMPARISON: Chest 11/07/2022. FINDINGS: No pneumothorax. Old, healed right-sided rib fractures. Thoracolumbar spinal fusion hardware again noted. The heart remains mildly enlarged. There is progressive interstitial/vascular thickening consistent with pulmonary edema. Small bilateral pleural effusions have also progressed. Left basilar linear densities are nonspecific but may represent compressive atelectasis from the pleural effusion. IMPRESSION: 1. Interval development of mild interstitial pulmonary edema and small bilateral pleural effusions. 2. Left basilar densities are nonspecific but favor atelectasis from the pleural effusion. ACT 112: Negative or not required by law. Electronically signed by: Daniel Hicks M.D. 02/03/2023 6:53 AM Hospital Course (1) BRBPR (bright red blood per rectum): (2) Paroxysmal atrial fibrillation: (3) FCI (current) use of anticoagulants: (4) History of back pain: (5) GERD (gastroesophageal reflux disease): (6) Gastric ulcer: Patient is a 77 yr female with H/O PAF on Eliquis, valvular heart disease [ moderate to severe MR/mild TR/TTE 2022], chronic back pain s/p surgery and intrathecal pump placement, GERD, mood disorder, ongoing tobacco abuse, who was admitted in November 2022 to [facility] for chest pain rule out and underwent stress testing which was equivocal. She has been on Eliquis since Feb 2022 when she was admitted with afib RVR. Patient presented with 1 week of nausea and abdominal discomfort, and 3 days of bright red/dark red clots of blood per rectum. She is moving her bowels 2-3 x daily in the past 3 days. Reports nausea intermittently, and that she is has vomited once daily in the past week, but no bloody emesis or coffee ground emesis. Denies hx of hemorrhoids or diverticulosis. Appetite has been poor. BRBPR likely due to hemorrhoids H/O Gastric Ulcer --CT ABD:Exam significantly compromised by artifact and difficulty positioning, as described above. No definite acute findings within the abdomen or pelvis. --S/P 1 unit PRBCs --S/P Colonoscopy:The rectum, sigmoid colon, descending colon, splenic flexure, transverse colon, hepatic flexure, ascending colon, cecum and recto-sigmoid colon are normal. No specimens collected. -Eliquis held and discontinued at discharge due to cost issues. Started on Coumadin per cardiology and will follow-up as outpatient for further management. GI cleared for anticoagulation -H&H remained stable Hypotension-resolved. Low BP possibly related to narcotics/intrathecal pump. Patient remains asymptomatic. No obvious source of infection Normal lactate, cortisol --CT Lumbar:No definite acute fractures within the lumbar spine. Subcutaneous contusions of the lower back, as shown on CT of January 31, 2023. Nearly nondiagnostic evaluation of the central canal due to CT technique and artifact. However, no additional fluid collections identified. Low Prealbumin --Blood cultures negative Chest pain-resolved, no further chest pain. Cleared by cardiology for discharge home Equivocal stress test in November. Refused cardiac cath at that time. EKG showed nonspecific T wave changes Echo showed no regional wall motion abnormality Continue isosorbide, metoprolol, Lipitor Chronic Back Pain on intrathecal pump. Seen by pain management. Outpatient follow-up scheduled for February 10. - Back stimulator in place Paroxysmal Afib Valvular Heart disease Moderate MR/ Mild TR Continue metoprolol Eliquis discontinued at discharge due to cost issues. Started on Coumadin today per cardiology. Outpatient follow-up with [place] [facility] with repeat INR in 3 days for further management of Coumadin. Cardiology will place the referral order. Patient also has PCP follow-up for Wednesday. Tobacco Use - Smokes 1 ppd since she was a teenager, ~60 pack year hx - Cessation encouraged Patient is anxious to go home. and daughter at bedside. Discharge plan reviewed in detail including Coumadin and INR recommendations. Total Time Total Time Spent Total Time Spent (In Minutes): 45 Discharge Plan Discharge Items Patient Disposition: Home - Home Health Services Reason For Visit: GI BLEED Discharge Diagnosis: BRBPR suspected hemorrhoidal, Paroxysmal atrial fibrillation, Chronic back pain on intrathecal pump Activity: Resume your previous activity Non-emergency contact: Primary Care Provider, Director Of Planning, Hotbed Operator and Pain Management Call non-emergency contact if: you have any medication questions, your symptoms worsen, your pain is concerning for you and you have a fever Follow-up/Referrals: Mac Christianson DO [Director Of Planning] - (The Cardiology office will contact you with a follow up appointment.) Casey Rodgers [Primary Care Provider] - 02/08/23 11:30 am () Diet: Heart Healthy Addtl Attending Provider Instructions: Continue coumadin 5 mg daily starting tomorrow morning. Get INR checked on Wednesday for further dosage adjustment. Follow up with the coumadin clinic at [place]. Follow up with your cardiology and family doctor Pending Studies at Discharge: No Stand-Alone Forms: My [facility], Smoking Cessation Medications and DC Order Prescriptions: New warfarin 5 mg tablet 5 mg PO DAILY Qty: 2 0RF Rx Instructions: starting tomorrow. pantoprazole [Protonix] 40 mg tablet,delayed release (DR/EC) 40 mg PO DAILY Qty: 10 0RF Continued hydrocodone-acetaminophen 10-325 mg tablet 1 tab PO Q6 PRN (Reason: Pain) promethazine 12.5 mg tablet 12.5 mg PO Q6H PRN (Reason: Nausea) multivitamin Tablet 1 tab PO QAM trazodone 100 mg Tablet 200 mg PO HS omeprazole 20 mg Tablet,Delayed Release (Dr/Ec) 20 mg PO QPM rizatriptan 10 mg Tablet 10 mg PO UD PRN (Reason: Migraine Headache) Rx Instructions: take 1 tab at onset of headache; if no relief may repeat 1 tab after at least 2 hrs; max = 3 tabs/24 hr atorvastatin 10 mg Tablet 10 mg PO QAM Qty: 30 0RF isosorbide mononitrate 30 mg Tablet Extended Release 24 Hr 30 mg PO QAM Qty: 30 0RF [id number]-ecpfrvbcoanzc-vdyt 50-325-40 mg Tablet 1 tab PO TID PRN (Reason: Migraine Headache) furosemide [Lasix] 20 mg Tablet 20 mg PO [id number] Rx Instructions: Wednesday through Wednesday calcium carbonate-vitamin D3 [Calcium 600 + D(3)] 600 mg-10 mcg (400 unit) Tablet 1 tab PO DAILY Hydromorphone Pain Pump 0 mg INJ DIRECTED metoprolol succinate 25 mg tablet extended release 24 hr 25 mg PO QAM spironolactone 25 mg tablet 25 mg PO 3XWK Rx Instructions: Wednesday, Wednesday, Wednesday Discontinued Eliquis 5 mg tablet 5 mg PO BID Excedrin Migraine 250-250-65 mg Tablet 2 tab PO Q6H PRN (Reason: Migraine Headache) Discharge Orders: Discharge Order (Routine); Ordered 02/05/23 Ordered By: Jeff Means Admission Data Admit Date/Time: 01/31/23 17:19 Attending Provider: Jeff Means Admit Provider: Shivani Roman Primary Care Provider: Casey Rodgers Other Providers: Shivani Roman ; Leelee Rodriguez Jr ; Hannah Hinojosa ; Mac Christianson ; Sterling Lockhart ; Ted Shah ; James Cordero ; Caed Acharya ; Rhiannon Leal ; Claire Diaz ; Hannah Fuentes ; Mick Tyson ; Hilda Guardado ; Arslan Albright ; Wilber Lima Other Interventions: Discharge Summary Assessment (RN) Last Done: 02/04/23 12:31
--- NOTE | 2023-02-05 22:02 | Electrocardiogram Report ---
Test Reason : Blood Pressure : / mmHG Vent. Rate : 068 BPM Atrial Rate : 068 BPM P-R Int : 134 ms QRS Dur : 066 ms QT Int : 366 ms P-R-T Axes : 058 040 -01 degrees QTc Int : 389 ms Normal sinus rhythm with sinus arrhythmia Low voltage QRS Septal infarct (cited on or before 08-NOV-2022) Nonspecific T wave abnormality Abnormal ECG When compared with ECG of 03-FEB-2023 09:45, No significant change was found Confirmed by Mani Barroso ([id number]) on 02/05/2023 10:02:18 PM Referred By: REFERRED SELF Confirmed By:Mani Barroso
--- OUTSIDE RECORDS SUMMARY | 2023-02-08 02:12 | External Medical Summary | Summary of Care ---
Author Name Unknown Organization [facility] Address [address] [place] [address] Phone [phone] Care Team Providers Care Applied Anthropologist Name Role Phone Casey Rodgers MD Primary Care Provider [phone] Reason for Visit * Reason Comments Hospital Follow-Up [facility] 11/08-11/10/22. Gala oing nausea and body aches. Edema ongoing. No appetite. Denies chest pains, palpitations, dizziness and SOB. Encounter Details Date Type Department Care Team Description 12/17/2022 Office Visit Cardiology [address] [place] [phone] Rhiannon Leal PA-C [address] [place] [id number] Localized edema*; Paroxysmal atrial fibrillation (HCC); Nonrheumatic mitral valve regurgitation; Chronic heart failure with preserved ejection fraction (HCC); HTN, goal below 130/80; Dyslipidemia, goal LDL below 70 Allergies Active Allergy Reactions Severity Noted Date Comments Chlorhexidine Itching 09/10/2020 Hydrochlorothiazide Other (Please comment) 02/26/2017 Caused pancreatitis Metronidazole 02/09/2017 Pill causes severe diarrhea Ondansetron Other (Please comment) High 03/04/2018 TAYLOR documented as of this encounter (statuses as of 12/30/2022) Medications Medication Sig Dispensed Refills Start Date End Date Status HYDROcodone-aceta minophen 5-325 mg per tab 5-325 MG per tablet Take 1 Tab by mouth every 6 hours as needed for Pain, Mild. 90 Tab 0 07/20/2017 Active Calcium Carbonate-Vitamin D 500-125 MG-UNIT Oral Tablet Take by mouth daily. 0 Active Aspirin-Acetamino phen-Caffeine 250-250-65 MG Oral Tablet Take 2 Tablets by mouth every 6 hours as needed for Pain. 0 Active promethazine (PHENERGAN) 25 MG Tablet Take 1 Tablet by mouth every 6 hours as needed for Nausea. 0 Active omeprazole (PRILOSEC) 20 MG CPDR Take 1 Capsule by mouth daily as needed. 0 Active Centrum Silver 50+Women Oral Tablet Take by mouth daily. 0 Active Rizatriptan Benzoate 10 MG Oral Tablet Take 1 Tablet by mouth as needed for Migraine. 0 Active traZODone HCl 100 MG Oral Tablet (Desyrel) Take 1 Tablet by mouth at bedtime. 0 Active Nutkxezahe-ZEGG-E affeine 50-325-40 MG Oral Tablet Take 1 Tablet by mouth 3 times a day as needed. 0 Active Apixaban 5 MG Oral Tablet (Eliquis) Take 1 Tablet (5 mg) by mouth in the morning and 1 Tablet (5 mg) before bedtime. 180 Tablet 3 03/26/2022 Active Atorvastatin Calcium 10 MG Oral Tablet (Lipitor) TAKE 1 TABLET BY MOUTH ONCE DAILY IN THE MORNING 0 11/10/2022 Active Isosorbide Mononitrate ER 30 MG Oral Tablet Extended Release 24 Hour (Imdur) TAKE 1 TABLET BY MOUTH ONCE DAILY IN THE MORNING 0 11/10/2022 Active Aspirin Low Dose 81 MG Oral Tablet Delayed Release TAKE 1 TABLET BY MOUTH ONCE DAILY IN THE MORNING 0 11/10/2022 Active Metoprolol Succinate ER 25 MG Oral Tablet Extended Release 24 Hour (toPROL XL)Indications:Pa roxysmal atrial fibrillation (HCC),Localized edema Take 1 Tablet by mouth in the morning. 90 Tablet 3 12/17/2022 Active Spironolactone 25 MG Oral Tablet (Aldactone)Indica tions:Paroxysmal atrial fibrillation (HCC),Localized edema Take 1/2 tablet 5 days per week 45 Tablet 3 12/17/2022 Active Furosemide 40 MG Oral Tablet (Lasix)Indication s:Paroxysmal atrial fibrillation (HCC),Localized edema Take 1/2 tablet 5 days per week 45 Tablet 3 12/17/2022 Active Furosemide 40 MG Oral Tablet (Lasix) Take 1 Tablet by mouth in the morning. Mon & Thurs and as directed. 36 Tablet 3 06/15/2022 3 Discontinued(Ref ill) Spironolactone 25 MG Oral Tablet (Aldactone) Take one half 3 days per week 24 Tablet 3 06/15/2022 3 Discontinued dilTIAZem HCl ER Coated Beads 120 MG Oral Capsule Extended Release 24 Hour (Cardizem CD) Take 1 Capsule by mouth in the morning. 0 11/10/2022 3 Discontinued(Med ication/Dose Changed) documented as of this encounter (statuses as of 12/30/2022) Active Problems Problem Noted Date Nonrheumatic mitral valve regurgitation 12/30/2022 Paroxysmal atrial fibrillation 3 Chronic heart failure with preserved eje ction fraction 12/30/2022 Dyslipidemia, goal LDL below 70 12/31/19 23 S/P laminectomy with spinal fusion 06/01 Postoperative anemia due to acute blood loss 05/02/2017 HTN (hypertension) 05/02/2017 Tobacco abuse 05/02/2017 Spinal stenosis 05/02/2017 GERD (gastroesophageal reflux disease) 1 07/03/2016 SIRS (systemic inflammatory response syn drome) 05/02/2017 Thrombocytopenia 05/02/2017 Bilateral low back pain without sciatica 05/17/2015 documented as of this encounter (statuses as of 12/30/2022) Social History Tobacco Use Types Packs/Day Years Used Date Smoking Tobacco: Every Day Cigarettes 0.5 50 Started: 09/04/1965 Smokeless Tobacco: Never Alcohol Use Standard Drinks/Week Comments No 0 (1 standard drink = 0.6 oz pur e alcohol) Sex Assigned at Date Recorded Not on file Job Start Date Occupation Industry Not on file Not on file Not on file documented as of this encounter Last Filed Vital Signs Vital Sign Reading Time Taken Comments Blood Pressure 104/64 12/17/2022 3:26 PM EDT Pulse 68 12/17/2022 3:26 PM EDT Temperature - - Respiratory Rate 16 12/17/2022 3:26 PM EDT Oxygen Saturation - - Inhaled Oxygen Concentration - - Weight 47.4 kg (104 lb 6.4 oz) 12/17/2022 3:26 P M EDT Height - - Body Mass Index 20.39 04/30/2017 7:59 AM EST documented in this encounter Functional Status Functional Status Response Date of Assess ment Are you deaf or do you have serious difficulty h earing? No 04/30/2017 Are you blind or do you have serious difficulty seeing, even when wearing glasses? No 04/30/2017 Do you have serious difficul ty walking or climbing stairs? (5 years old or older) No 04/30/2017 Do you have difficulty dress ing or bathing? (5 years old or older) No 04/30/2017 Because of a physical, menta l, or emotional condition, do you have difficulty doing errands alone such as visiting a doctor s office or shopping? (15 years old or older) No 04/30/20 17 Cognitive Status Response Date of Assessm ent Because of a physical, menta l, or emotional condition, do you have serious difficulty concentrating, remembering, or making decisions? (5 years old or older No 04/30/2017 documented as of this encounter Patient Instructions * Patient Instructions* Rhiannon Leal PA-C - 12/17/2022 3:49 PM EDT Stop diltiazem. Start metoprolol succinate 25 mg - 1 tablet daily Increase spironolactone 25 mg - 1/2 tablet 5 days per week Increase furosemide 40 mg - 1/2 tablet 5 days per week Blood work in about 2 weeks documented in this encounter Progress Notes * Rhiannon Leal PA-C - 12/17/2022 3:31 PM EDT Images from the original note were not included. Cardiology F/U: SUBJECTIVE: Alexia Campos is a 76 year old female here today for routine cardiology follow-up. Last clinic evaluation approximately [address] Lockhart. History includes: 1. Paroxysmal atrial fibrillation with acute hospitalization March 04, 2022 with rapid response (1st onset). Chads Vasc 2 score 4 Repeat ER visit May 15, 2022 or with atrial fibrillation with rapid response with spontaneous conversion 2. Hypertension 3. Mitral insufficiency 4. Chronic tobacco use/chronic obstructive lung disease Since last visit patient was hospitalized at [facility] in November 2022 with complaints of chest pain. Records reviewed in detail. Evaluated by Dr. Shah and Dr. Christianson. EKG demonstrated mild diffuse nonspecific T-wave abnormality. Minimally elevated high sensitivity troponin. Preserved EF on echo. She subsequently underwent Lexiscan nuclear stress testing which was equivocal with EKG changes but noreversible perfusion defects. She also experienced intermittent chest discomfort after the administration of Lexiscan. Further evaluation with cardiac catheterization versus medical management was discussed in detail. Patient was hesitant to proceed with invasive procedures and preferred ongoing medical management unless she would have recurrent or worsening symptoms. Diltiazem was discontinued due to borderline bradycardia. She was discharged on aspirin, atorvastatin, isosorbide, spironolactone and furosemide. She presents today with her daughter. She notes worsening lower extremity edema since hospital discharge. Per review of medications, she resumed her diltiazem. Heart rates are well controlled. Blood pressure is borderline low. She denies recurrent chest pain. No unusual shortness of breath. No chest pain, shortness of breath, palpitations, dizziness, syncope or near syncope. No orthopnea,PND, or increased lower extremity edema. No fever, chills, cough, hematochezia, melena, or hemoptysis. Review of Systems: See HPI for pertinent positives. All others negative, other than those noted in HPI. Patient Active Problem List Diagnosis Code Bilateral low back pain without sciatica M54.50 Postoperative anemia due to acute blood loss D62 HTN (hypertension) I10 Tobacco abuse Z72.0 Spinal stenosis M48.00 GERD (gastroesophageal reflux disease) K21.9 SIRS (systemic inflammatory response syndrome) ([facility]) R65.10 Thrombocytopenia ([facility]) D69.6 S/P laminectomy with spinal fusion Z98.1 Review of patient's allergies indicates: Allergen Reactions Ondansetron Other (Please comment) TAYLOR Chlorhexidine Itching Hctz [Hydrochlorothiazide] Other (Please comment) Caused pancreatitis Metronidazole Pill causes severe diarrhea Current Outpatient Medications Medication Sig Dispense Refill HYDROcodone-acetaminophen 5-325 mg per tab 5-325 MG per tablet Take 1 Tab by mouth every 6 hours asneeded for Pain, Mild. 90 Tab 0 Calcium Carbonate-Vitamin D 500-125 MG-UNIT Oral Tablet Take by mouth daily. promethazine (PHENERGAN) 25 MG Tablet Take 1 Tablet by mouth every 6 hours as needed for Nausea. omeprazole (PRILOSEC) 20 MG CPDR Take 1 Capsule by mouth daily as needed. Centrum Silver 50+Women Oral Tablet Take by mouth daily. Rizatriptan Benzoate 10 MG Oral Tablet Take 1 Tablet by mouth as needed for Migraine. traZODone HCl 100 MG Oral Tablet (Desyrel) Take 1 Tablet by mouth at bedtime. Apixaban 5 MG Oral Tablet (Eliquis) Take 1 Tablet (5 mg) by mouth in the morning and 1 Tablet (5 mg) before bedtime. 180 Tablet 3 Spironolactone 25 MG Oral Tablet (Aldactone) Take one half 3 days per week 24 Tablet 3 Atorvastatin Calcium 10 MG Oral Tablet (Lipitor) TAKE 1 TABLET BY MOUTH ONCE DAILY IN THE MORNING Isosorbide Mononitrate ER 30 MG Oral Tablet Extended Release 24 Hour (Imdur) TAKE 1 TABLET BY MOUTHONCE DAILY IN THE MORNING Aspirin Low Dose 81 MG Oral Tablet Delayed Release TAKE 1 TABLET BY MOUTH ONCE DAILY IN THE MORNING dilTIAZem HCl ER Coated Beads 120 MG Oral Capsule Extended Release 24 Hour (Cardizem CD) Take 1 Capsule by mouth in the morning. Cbjyhyl-Uqtvyajuvtyuw-Xpdmjcmi 250-250-65 MG Oral Tablet Take 2 Tablets by mouth every 6 hours as needed for Pain. Gqetpzthdx-NGQN-Iqpapjhm 50-325-40 MG Oral Tablet Take 1 Tablet by mouth 3 times a day as needed. Furosemide 40 MG Oral Tablet (Lasix) Take 1 Tablet by mouth in the morning. Mon & and as directed. (Patient taking differently: Take 0.5 Tablets by mouth once a day on Wednesday, Wednesday, and Wednesday only.) 36 Tablet 3 No current facility-administered medications for this visit. OBJECTIVE/PHYSICAL EXAMINATION: BP 104/64 | Pulse 68 | Resp 16 | Wt 47.4 kg (104 lb 6.4 oz) | BMI 20.39 kg/m² | BSA 1.42 m² General: Age appropriate, thin female in no acute distress Head: normocephalic, no masses, lesions, tenderness or abnormalities Eyes: conjunctiva are pink and non-injected, sclera clear Throat: clear Nares: without discharge Neck: supple, no adenopathy, normal jugular venous pulse, no hepatojugular reflux, no carotid bruits Chest: normal shape and normal respiratory effort Lungs: Diminished breath sounds with few rhonchi on forced cough Cardiac Exam: - regular rate &rhythm, no murmur, gallop or rub - normal S-1, normal S-2 Abdomen: abdomen soft, non-tender, no abnormal masses, no hepatosplenomegaly, no abdominal bruit, no femoral bruit Musculoskeletal: no gait disturbance, no joint inflammation, no deforming arthritis Extremities: 2+ to the knees edema, no cyanosis, pulses intact 2+/4 Neuro: grossly normal exam Data: Nuclear stress test report reviewed dated November 09, 2022 at [facility], per Dr. Christianson: Impression: Equivocal pharmacologic myocardial perfusion imaging study with symptoms of chest discomfort observed after the administration of Lexiscan (regadenoson), equivocal EKG changes. The stress and rest myocardial perfusion images were normal. Patient received 0.4 mg of sublingual nitroglycerin as well as caffeinated cola with relief of her symptoms late in the post-rest recovery interval. Patient left the department in stable condition offering no complaints with resolution of her symptoms. Echocardiogram report reviewed dated November 08, 2022 at [facility]: Echocardiogram April 21, 2022 The qualitative LV ejection fraction is 55-59% (normal). The LV wall thickness is borderline increased (concentric). The left ventricular diastolic function is moderately abnormal (grade II). The left atrium is severely enlarged (>48 ml/m^2,). Mild mitral regurgitation is present. Mild tricuspid regurgitation is present. The estimated pulmonary artery systolic pressure is 40 mm Hg. Compared to last available study changes are noted as follows: Mild pulmonary hypertension now present Latest Reference Range & Units 03/20/22 12:06 Sodium 135 - 146 mmol/L 140 Potassium 3.5 - 5.1 mmol/L 5.1 Chloride 98 - 107 mmol/L 102 CO2 22 - 32 mmol/L 27 BUN 6 - 20 mg/dL 16 Creatinine 0.5 - 1.0 mg/dL 0.6 Estimated Glomerular Filtration Rate >=60 mL/min >90 Anion Gap 7 - 15 mmol/L 11 Glucose 70 - 120 mg/dL 93 Calcium 8.4 - 10.2 mg/dL 9.6 ASSESSMENT: 76 year old year old female issues as follows 1. Paroxysmal atrial fibrillation 2. Hypertension: Now trending low 3. Mitral insufficiency, moderate 4. Equivocal nuclear lexiscan stress test - patient opting for med management. 5. LE edema - possible due to diltiazem. PLAN: We spent most of today's visit reviewing recent hospital records and tests. No recurrent chest pain or dyspnea. She resumed diltiazem upon returning home and swelling now worse. Options discussed. Recommend stopping diltiazem and starting low dose metoprolol 25 mg daily to aid with PAF. Increase spironolactone to 1/2 tab 5 days per week and furosemide to 40 mg 5 days per week. Take anadditional tablet as needed. Blood work requested in a few weeks. Patient Instructions Stop diltiazem. Start metoprolol succinate 25 mg - 1 tablet daily Increase spironolactone 25 mg - 1/2 tablet 5 days per week Increase furosemide 40 mg - 1/2 tablet 5 days per week Blood work in about 2 weeks I spent a total of 30 minutes on the date of service in preparation, delivery, and documentation ofthe care provided to Alexia Campos excluding any time spent in the performance of separately billed services. The patient agrees to the above plan and will call with additional questions or concerns. ER with all emergencies advised. Check-out note: Print instructions Keep f/u as scheduled Rhiannon Leal PA-C Department of Cardiology This chart was completed in part utilizing [employer] Speech Voice Recognition Software. Grammatical errors, random word insertions, prounoun errors, and incomplete sentences are an occasional consequence of this system due to software limitations, ambient noise, and hardware issues. Any formal questions or concerns about the content, text, or information contained within the body of this dictation should be directly addressed to the provider for clarification. documented in this encounter Nursing Notes * Joseph Moralez LPN - 12/17/2022 3:26 PM EDT Patient identified by full name and date of Chief Complaint Patient presents with • Hospital Follow-Up [facility] 11/08-11/10/22. Ongoing nausea and body aches. Edema ongoing. No appetite. Denies chest pains, palpitations, dizziness and SOB. Examination Room: 4 Name: Alexia Campos Date of : (1945). Reason for Visit: HD follow up Interim Hospitalization(s): 11/08-11/10/22 Problems/Concerns: See chief complaint Chest Pain/SOB: Denies [facility] Discussed: Not applicable [facility] is a way you can talk to your provider online through e-mail. Would you like to sign up? I can activate it for you? DECLINES Patient was instructed to not get up on the exam table until directed and assisted by their provider; patient is to remain seated in the chair/ wheelchair/ exam table for fall prevention and safety reasons. Patient is aware to have assistance to step down off exam table with personnel. Patient voiced full comprehension of instructions. documented in this encounter Plan of Treatment Upcoming Encounters Date Type Specialty Care Team Description 05/25/2023 Office Visit Cardiology Sterling Lockhart MD [address] [place] [phone] Scheduled Orders Name Type Priority Associated Diagnoses Orde r Schedule BASIC METABOLIC PANEL Lab Routine Paroxysmal atrial fibrillation (HCC) Localized edema Ordered: 12/17/2022 Health Maintenance Due Date Last Done Comments Pneumococcal Vaccine: 65+ Years (1 - PCV) 1951 Depression Screening, Annual for Pts 12 and Over 1956 Albumin/Creatinine Ratio 1962 Hepatitis C Screening 1962 DTaP,Tdap,and Td Vaccines (1 - Tdap) 12/21/1963 LUNG CANCER SCREENING - USE SMARTSET 40222 1994 Zoster Vaccines (1 of 2) 1994 COVID-19 Vaccine (3 - Pfizer series) 08/30/2020 07/05/2020, 06/07/2020 DXA Scan 12/26/2021 12/26/2014 Influenza Vaccine (FLU shot) (#1) 2023 GFR 03/20/2023 03/20/2022, 10/08, 05/03/2017, Additional history exists GARDASIL-HPV IMMUNIZATION SERIES Aged Out No longer eligible based on patient's age to complete this topic Hepatitis B Aged Out No longer eligi ble based on patient's age to complete this topic MENINGOCOCCAL (MENACTRA/MENVEO) Aged Out No longer eligible based on patient's age to complete this topic documented as of this encounter Medical Devices Implanted Type Area Citrix Engineer Device Identifier Shelf Expiration Date Model / Serial / Lot Dbx 10cc [id number] - [id number] - [id number] Implanted:Qty : 1 on 01/11/2015 [place] [facility] [place]/A: Spine Lumbar MUSCULOSKELETAL TRANSPLANT FND 08/18/2016 [id number] / [id number] / Chip Cancellous 90cc [id number] - [id number] Implanted:Qty : 1 on 04/30/2017 by [place] Krause [place] [facility] [place] - Human N/A: Spine Lumbar MUSCULOSKELETAL TRANSPLANT FND 01/29/2018 [id number] / / Expedium Ti Sfx 5.5 Lat A2 - [id number] Implanted:Qty : 1 on 01/11/2015 by [place] Krause [place] [facility] [place]A: Spine Lumbar JNJ : [employer] [id number] / / Expedium Ti Sfx 5.5 Lat A6 - [id number] Implanted:Qty : 2 on 04/30/2017 by [place] Krause [place] [facility] [place] Spine Lumbar JNJ : [employer] [id number] / / documented as of this encounter Visit Diagnoses Diagnosis Localized edema- Primary Edema Paroxysmal atrial fibrillation (HCC) Atrial fibrillation Nonrheumatic mitral valve regurgitation Chronic heart failure with preserved ejection fraction (HCC) HTN, goal below 130/80 Unspecified essential hypertension Dyslipidemia, goal LDL below 70 Other and unspecified hyperlipidemia documented in this encounter Advance Directives Latest Code Status on File Code Status Date Activated Date Inactivated Comments Full Code 04/30/2017 7:41 AM 05/04/2017 4:50 PM Thi s order reflects the patients wishes and were consensually agreed upon. Code Status History Code Status Date Activated Date Inactivated Comments Full Code 01/11/2015 8:11 AM 01/18/2015 8:08 PM This o rder reflects the patients wishes and were consensually agreed upon. Question Answer Comments Discussion of Advance Directives occurred with: Patient Does the patient have a Living Will? No Does the patient have Health Care Power of Fender Mechanic Apprentice? No Care Teams Applied Anthropologist Relationship Specialty Start Date End Date Casey Rodgers MD [address] [place] [id number] PCP - General Family Medicine 09/04/14 documented as of this encounter"
--- OUTSIDE RECORDS SUMMARY | 2023-02-08 02:12 | External Medical Summary | Summary of Care ---
Author Name Unknown Organization [facility] Address [address] [place] [address] Phone [phone] Care Team Providers Care In Home Nanny Name Role Phone Casey Rodgers MD Primary Care Provider [phone] Encounter Details Date Type Department Care Team Description 11/09/2022 Orders Only Outcomes Research Department [address] [place] [address] Thelma Pond CHRA [employer] [facility] Other*[id number] Allergies Active Allergy Reactions Severity Noted Date Comments Chlorhexidine Itching 09/10/2020 Hydrochlorothiazide Other (Please comment) 02/26/2017 Caused pancreatitis Metronidazole 02/09/2017 Pill causes severe diarrhea Ondansetron Other (Please comment) High 03/04/2018 TAYLOR documented as of this encounter (statuses as of 11/09/2022) Medications Medication Sig Dispensed Refills Start Date End Date Status HYDROcodone-acetam inophen 5-325 mg per tab 5-325 MG per tablet Take 1 Tab by mouth every 6 hours as needed for Pain, Mild. 90 Tab 0 07/20/2017 Active Calcium Carbonate-Vitamin D 500-125 MG-UNIT Oral Tablet Take by mouth daily. 0 Active Aspirin-Acetaminop hen-Caffeine 250-250-65 MG Oral Tablet Take 2 Tablets [...] Tablet by mouth at bedtime. 0 Active Zanlxueily-HIJE-Zl ffeine 50-325-40 MG Oral Tablet Take 1 Tablet by mouth 3 times a day as needed. 0 Active Apixaban 5 MG Oral Tablet (Eliquis) Take 1 Tablet (5 mg) by mouth in the morning and 1 Tablet (5 mg) before bedtime. 180 Tablet 3 03/26/2022 Active Furosemide 40 MG Oral Tablet (Lasix) Take 1 Tablet by mouth in the morning. Mon & Thurs and as directed. 36 Tablet 3 06/15/2022 Active Additional Information Patient taking differently: 20 mgOral Daily(AM), Mon & Thurs and as directed, Reported on 08/20/2022 Spironolactone 25 MG Oral Tablet (Aldactone) Take one half 3 days per week 24 Tablet 3 06/15/2022 Active documented as of this encounter (statuses as of 11/09/2022) Active Problems Problem Noted Date S/P laminectomy with spinal fusion 06/01 Postoperative anemia due to acute blood loss 05/02/2017 HTN (hypertension) 05/02/2017 Tobacco abuse 05/02/2017 Spinal stenosis 05/02/2017 GERD (gastroesophageal reflux disease) 1 07/03/2016 SIRS (systemic inflammatory response syn drome) 05/02/2017 Thrombocytopenia 05/02/2017 Bilateral low back pain without sciatica 05/17/2015 documented as of this encounter (statuses as of 11/09/2022) Social History Tobacco Use Types Packs/Day Years [...] on file documented as of this encounter Functional Status Functional Status Response [...] No 04/30/2017 documented as of this encounter Plan of Treatment Upcoming Encounters Date Type Specialty Care Team Description 05/25/2023 Office Visit Cardiology Sterling Lockhart MD [address] [place] [address] Scheduled Orders Name Type Priority Associated Diagnoses Orde r Schedule MYCODE INITIAL ADULT Lab Routine [facility] Research Other*[id number] Expected: 11/09/2022 (Approximate), Expires: 11/29/2023 Health Maintenance Due Date Last Done Comments Pneumococcal Vaccine: 65+ Years (1 - PCV) 1950 Depression Screening, Annual for Pts 12 and Over 1956 Albumin/Creatinine Ratio 1962 Hepatitis C Screening 1962 DTaP,Tdap,and Td Vaccines (1 - Tdap) 12/21/1963 LUNG CANCER SCREENING - USE SMARTSET 96109 1994 Zoster Vaccines (1 of 2) 1994 [...] this encounter Medical Devices Implanted Type Area Barrel And Receiver Aligner Device Identifier Shelf Expiration Date Model / Serial / Lot Dbx 10cc [id number] - [id number] - [id number] Implanted:Qty : 1 [place]/11/[place] [facility] [place] N/A: Spine Lumbar MUSCULOSKELETAL TRANSPLANT FND 08/18/2016 [id number] / [id number] / Chip Cancellous 90cc [id number] - [id number] Implanted:Qty : 1 on 04/30/2017 [place] Krause [place] [facility] [place] - Human N/A: Spine Lumbar MUSCULOSKELETAL TRANSPLANT FND 01/29/2018 [id number] / / Expedium Ti Sfx 5.5 Lat A2 - [id number] Implanted:Qty : 1 on 01/11/2015 [place] Krause [place] [facility] [place]/A: Spine Lumbar JNJ : [employer] [id number] / / Expedium Ti Sfx 5.5 Lat A6 - [id number] Implanted:Qty : 2 on 04/30/2017 by [place] Krause [place] [facility] [place]: Spine Lumbar JNJ : [employer] [id number] / / documented as of this encounter Visit Diagnoses Diagnosis [facility] Research Other*[id number] documented in this encounter Advance Directives Latest [...] the patient have Health Care Power of Car Checker? No Care Teams In Home Nanny Relationship Specialty Start Date End Date Casey Rodgers MD [address] [place] [address] PCP - General Family Medicine 09/04/14 documented as of this encounter
--- OUTSIDE RECORDS SUMMARY | 2023-02-08 02:12 | External Medical Summary | Summary of Care ---
Author Name Unknown Organization [facility] Address [address] [place] [address] Phone [phone] Care Team Providers Care Radio Station Operator Name Role Phone Casey Rodgers MD Primary Care Provider [phone] Reason for Visit * Reason Onset Date Comments Advice 07/23/2022 Encounter Details Date Type Department Care Team Description 07/23/2022 Telephone Cardiology, [facility] [address] [place] [address] Sterling Lockhart MD [address] [place] [address] Advice Allergies Active Allergy Reactions Severity Noted Date Comments Chlorhexidine Itching 09/10/2020 Hydrochlorothiazide Other (Please comment) 02/26/2017 Caused pancreatitis Metronidazole 02/09/2017 Pill causes severe diarrhea Ondansetron Other (Please comment) High 03/04/2018 TAYLOR documented as of this encounter (statuses as of 07/24/2022) Medications Medication Sig Dispensed Refills Start Date End Date Status HYDROcodone-acetamin ophen 5-325 mg per tab 5-325 MG per tablet Take 1 Tab by mouth every 6 hours as needed for Pain, Mild. 90 Tab 0 07/20/2017 Active Calcium Carbonate-Vitamin D 500-125 MG-UNIT Oral Tablet Take by mouth daily. 0 Active Aspirin-Acetaminophe n-Caffeine 250-250-65 MG Oral Tablet Take 2 Tablets [...] Tablet by mouth at bedtime. 0 Active Zjpexpkigq-CILS-Utkf eine 50-325-40 MG Oral Tablet Take 1 Tablet [...] as directed. 36 Tablet 3 06/15/2022 Active Spironolactone 25 MG Oral Tablet (Aldactone) Take one half 3 days per week 24 Tablet 3 06/15/2022 Active documented as of this encounter (statuses as of 07/24/2022) Active Problems Problem Noted Date S/P laminectomy with spinal fusion 06/01 Postoperative anemia due to acute blood loss 05/02/2017 HTN (hypertension) 05/02/2017 Tobacco abuse 05/02/2017 Spinal stenosis 05/02/2017 GERD (gastroesophageal reflux disease) 1 07/03/2016 SIRS (systemic inflammatory response syn drome) 05/02/2017 Thrombocytopenia 05/02/2017 Bilateral low back pain without sciatica 05/17/2015 documented as of this encounter (statuses as of 07/24/2022) Social History Tobacco Use Types Packs/Day Years [...] No 04/30/2017 documented as of this encounter Miscellaneous Notes * Telephone Encounter - Dulce Maria Ramirez LPN - 07/24/2022 2:42 PM EDT Pt denies elevated HR's. Will do DTP as advised. * Telephone Encounter - Sterling Lockhart MD - 07/24/2022 1:23 PM EDT Is heart rate elevated or racing? If not have patient take dose of furosemide today, Wednesday, Wednesday and resume prior dosing on Wednesday * Telephone Encounter - Sudhir Slaughter RN - 07/24/2022 9:49 AM EDT Patient called into the clinic and stated she has had a 5 lb weight gain this week. He lowe legs are starting to swell. She denies any shortness of breath. She wants Dr. Lockhart to be aware.. * Telephone Encounter - YONNY Galeano - 07/24/2022 9:42 AM EDT Patient calling in to check on the status of previous message. Transferred to cardiology * Telephone Encounter - YONNY Gutierrez - 07/23/2022 10:58 AM EDT Good morning, Pt calling in that she is starting to notice LE swelling again even with the medication adjustments. Please advise. Thanks documented in this encounter Plan of Treatment Upcoming Encounters Date Type Specialty Care Team Description 08/20/2022 Office Visit Cardiology Sterling Lockhart MD [address] [place] [address] Health Maintenance Due Date Last Done Comments Pneumococcal Vaccine: 65+ Years (1 - PCV) 1950 Depression Screening, Annual for Pts 12 and Over 1956 Albumin/Creatinine Ratio 1962 Hepatitis C Screening 1962 DTaP,Tdap,and Td Vaccines (1 - Tdap) 12/21/1963 LUNG CANCER SCREENING - USE SMARTSET 60093 1994 Zoster Vaccines (1 of 2) 1994 COVID-19 Vaccine (3 - Booster for Pfizer series) 08/30/2020 07/05/2020, 06/07/2020 DXA Scan 12/26/2021 12/26/2014 Influenza Vaccine (FLU shot) (#1) 2022 GFR - Renal Function 03/20/2023 03/20/2022, 10/23/2017, 05/03/2017, Additional history exists GARDASIL-HPV IMMUNIZATION SERIES Aged Out No longer eligible based on patient's age to complete this topic Hepatitis B Aged Out No longer eligi ble based on patient's age to complete this topic MENINGOCOCCAL (MENACTRA/MENVEO) Aged Out No longer eligible based on patient's age to complete this topic documented as of this encounter Medical Devices Implanted Type Area Conservation Enforcement Officer Device Identifier Shelf Expiration Date Model / Serial / Lot Dbx 10cc [id number] - [id number] - [id number] Implanted:Qty : 1 on 01/11/2015 by Colin Krause MD at [place] [facility] [place] Tissue - Human N/A: Spine Lumbar MUSCULOSKELETAL TRANSPLANT FND 08/18/2016 [id number] / [id number] / Chip Cancellous 90cc [id number] - [id number] Implanted:Qty : 1 on 04/30/2017 by Colin Krause MD at [place] [facility] [place] Tissue - Human N/A: Spine Lumbar MUSCULOSKELETAL TRANSPLANT FND 01/29/2018 [id number] / / Expedium Ti Sfx 5.5 Lat A2 - [id number] Implanted:Qty : 1 on 01/11/2015 by Colin Krause MD at [place] [facility] [place] N/A: Spine Lumbar JNJ : [employer] [id number] / / Expedium Ti Sfx 5.5 Lat A6 - [id number] Implanted:Qty : 2 on 04/30/2017 by Colin Krause MD at [place] [facility] [place] N[place]A: Spine Lumbar JNJ : [employer] [id number] / / documented as of this encounter Advance Directives Latest Code Status [...] the patient have Health Care Power of Cylindrical Mixer? No Care Teams Radio Station Operator Relationship Specialty Start Date End Date Casey Rodgers MD [address] [place] [address] PCP - General Family Medicine 09/04/14 documented as of this encounter
--- OUTSIDE RECORDS SUMMARY | 2023-02-08 02:12 | External Medical Summary | Summary of Care ---
Author Name Unknown Organization [place] [address] Care Team Providers Care Change Management Name Role Phone Casey Rodgers MD Primary Care Provider [phone] Reason for Visit * Reason Comments Outpatient Testing Encounter Details Date Type Department Care Team Description 06/19/2022 Laboratory Laboratory, [facility] [address] [place] [address] [facility] [address] [facility] [place] [address] Arrived Allergies Active Allergy Reactions Severity Noted Date Comments Chlorhexidine Itching 09/10/2020 Hydrochlorothiazide Other (Please comment) 02/26/2017 Caused pancreatitis Metronidazole 02/09/2017 Pill causes severe diarrhea Ondansetron Other (Please comment) High 03/04/2018 TAYLOR documented as of this encounter (statuses as of 06/19/2022) Medications Medication Sig Dispensed Refills Start Date [...] Tablet by mouth at bedtime. 0 Active Qdykssdmaq-TNBU-Iywl eine 50-325-40 MG Oral Tablet Take 1 [...] as of this encounter (statuses as of 06/19/2022) Active Problems Problem Noted Date S/P laminectomy with spinal fusion 06/01 Postoperative anemia due to acute blood loss 05/02/2017 HTN (hypertension) 05/02/2017 Tobacco abuse 05/02/2017 Spinal stenosis 05/02/2017 GERD (gastroesophageal reflux disease) 1 07/03/2016 SIRS (systemic inflammatory response syn drome) 05/02/2017 Thrombocytopenia 05/02/2017 Bilateral low back pain without sciatica 05/17/2015 documented as of this encounter (statuses as of 06/19/2022) Social History Tobacco Use Types Packs/Day Years [...] Lockhart MD [address] [place] [address] Health Maintenance Due Date Last Done Comments Pneumococcal Vaccine: 65+ Years (1 - PCV) 1950 Depression Screening, Annual for Pts 12 and Over 1956 Alb / Creat Ratio 1962 Hepatitis C Screening 1962 DTaP,Tdap,and Td Vaccines (1 - Tdap) 12/21/1963 LUNG CANCER SCREENING - USE SMARTSET 24526 1994 Zoster Vaccines (1 of 2) 1994 [...] this encounter Medical Devices Implanted Type Area Sap Portal Architect Device Identifier Shelf Expiration Date Model / Serial / Lot Dbx 10cc [id number] - [id number] - [id number] Implanted:Qty : 1 on 01/11/2015 [place] Krause [place] [facility] - Human N/A: Spine Lumbar MUSCULOSKELETAL TRANSPLANT FND 08/18/2016 [id number] / [id number] / Chip Cancellous 90cc [id number] - [id number] Implanted:Qty : 1 on 04/30/2017 by [place] Krause [place] [facility] [place] - Human N/A: Spine Lumbar MUSCULOSKELETAL TRANSPLANT FND 01/29/2018 [id number] / / Expedium Ti Sfx 5.5 Lat A2 - [id number] Implanted:Qty : 1 on 01/11/2015 by [place] Krause [place] [facility] [place]A: Spine Lumbar JNJ : [employer] [id number] / / Expedium Ti Sfx 5.5 Lat A6 - [id number] Implanted:Qty : 2 on 04/30/2017 by [place] Krause [place] [facility] [place]A: Spine Lumbar JNJ : [employer] [id number] / / documented as of this encounter [...] the patient have Health Care Power of Diesel Powerplant Mechanic? No Care Teams Change Management Relationship Specialty Start Date End Date Casey Rodgers MD [address] [place] [address] PCP - General Family Medicine 09/04/14 documented as of this encounter
--- OUTSIDE RECORDS SUMMARY | 2023-02-08 02:12 | External Medical Summary | Summary of Care ---
Author Name Unknown Organization [place] [address] Care Team Providers Care Fire Regulator Name Role Phone Karissa Rodgers MD Primary Care Provider [phone] Reason for Visit * Reason Comments Follow Up Encounter Details Date Type Department Care Team Description 06/15/2022 Office Visit Cardiology, [facility] [address] [place] [id number] Sterling Lockhart MD [address] [place] [address] Paroxysmal atrial fibrillation (HCC)*; Generalized edema; Tobacco abuse; Spinal stenosis, unspecified spinal region Allergies Active Allergy Reactions Severity Noted Date Comments Chlorhexidine Itching 09/10/2020 Hydrochlorothiazide Other (Please comment) 02/26/2017 Caused pancreatitis Metronidazole 02/09/2017 Pill causes severe diarrhea Ondansetron Other (Please comment) High 03/04/2018 TAYLOR documented as of this encounter (statuses as of 06/15/2022) Medications Medication Sig Dispensed Refills Start Date End Date Status HYDROcodone-acet aminophen 5-325 mg per tab 5-325 MG per tablet Take 1 Tab by mouth every 6 hours as needed for Pain, Mild. 90 Tab 0 07/20/2017 Active Calcium Carbonate-Vitami n D 500-125 MG-UNIT Oral Tablet Take by mouth daily. 0 Active Aspirin-Acetamin ophen-Caffeine 250-250-65 MG Oral Tablet Take 2 Tablets [...] Tablet by mouth at bedtime. 0 Active Butalbital-APAP- Caffeine 50-325-40 MG Oral Tablet Take 1 Tablet [...] per week 24 Tablet 3 06/15/2022 Active Furosemide 40 MG Oral Tablet (Lasix) Take 1 Tablet by mouth. Mon & Thurs 0 3 Discontinued Lisinopril 5 MG Oral Tablet (Prinivil) Take 1 Tablet (5 mg) by mouth in the morning. 30 Tablet 5 03/20/2022 3 Discontinued(Medi cation/Dose Changed) dilTIAZem HCl ER Beads 180 MG Oral Capsule Extended Release 24 Hour Take 1 Capsule by mouth in the morning. 90 Capsule 3 05/26/2022 3 Discontinued(Medi cation/Dose Changed) documented as of this encounter (statuses as of 06/15/2022) Active Problems Problem Noted Date S/P laminectomy with spinal fusion 06/01 Postoperative anemia due to acute blood loss 05/02/2017 HTN (hypertension) 05/02/2017 Tobacco abuse 05/02/2017 Spinal stenosis 05/02/2017 GERD (gastroesophageal reflux disease) 1 07/03/2016 SIRS (systemic inflammatory response syn drome) 05/02/2017 Thrombocytopenia 05/02/2017 Bilateral low back pain without sciatica 05/17/2015 documented as of this encounter (statuses as of 06/15/2022) Social History Tobacco Use Types Packs/Day Years Used Date Smoking Tobacco: Every Day Cigarettes 0.5 50 Started: 09/04/1965 Smokeless Tobacco: Never Tobacco Cessation:Ready to Q uit: Not Asked; Counseling Given: Not Answered Alcohol Use Standard Drinks/Week Comments No 0 (1 standard drink = 0.6 oz pur e alcohol) Sex Assigned at Date Recorded Not on file Job Start Date Occupation Industry Not on file Not on file Not on file documented as of this encounter Last Filed Vital Signs Vital Sign Reading Time Taken Comments Blood Pressure 116/64 06/15/2022 3:32 PM EST Pulse 64 06/15/2022 3:32 PM EST Temperature 36.4 °C (97.5 °F) 06/15/2022 3:32 PM ES T Respiratory Rate 12 06/15/2022 3:32 PM EST Oxygen Saturation 95% 06/15/2022 3:32 PM EST Inhaled Oxygen Concentration - - Weight 52.3 kg (115 lb 6.4 oz) 06/15/2022 3:32 P M EST Height - - Body Mass Index 22.54 04/30/2017 7:59 AM EST documented in this [...] No 04/30/2017 documented as of this encounter Progress Notes * Sterling Lockhart MD - 06/15/2022 3:30 PM EST 06/15/2022 Cardiology Follow Up Referring Provider: PCP: KARISSA RODGERS Dr [address] [place] [address] [phone] Chief Complaint: SUBJECTIVE: Alexia Campos is a 76 year old year old female with ongoing cardiac issues 1. Paroxysmal atrial fibrillation with acute hospitalization March 04, 2022 with rapid response (1st onset). Chads Vasc 2 score 4 Repeat ER visit May 15, 2022 or with atrial fibrillation with rapid response with spontaneous conversion 2. Hypertension 3. Mitral insufficiency 4. Chronic tobacco use/chronic obstructive lung disease Patient presents today in follow-up. During most recent ER visit approximately 1 month ago diltiazem dosing was increased. Since that time patient has noted increasing lower extremity edema with 10 lb weight gain, low blood pressures. Has been holding lisinopril most days No recurrence of tachy palpitations no chest pains, no dizziness or lightheadedness. Respiratory status stable with chronic cough No bleeding difficulties on anticoagulation Activities limited by chronic back pain A Complete Review of Systems is as stated above or negative. Patient Active Problem List Diagnosis Code • Bilateral low back pain without sciatica M54.50 • Postoperative anemia due to acute blood loss D62 • HTN (hypertension) I10 • Tobacco abuse Z72.0 • Spinal stenosis M48.00 • GERD (gastroesophageal reflux disease) K21.9 • SIRS (systemic inflammatory response syndrome) ([facility]) R65.10 • Thrombocytopenia ([facility]) D69.6 • S/P laminectomy with spinal fusion Z98.1 Review of patient's allergies indicates: Allergen Reactions • Ondansetron Other (Please comment) TAYLOR • Chlorhexidine Itching • Hctz [Hydrochlorothiazide] Other (Please comment) Caused pancreatitis • Metronidazole Pill causes severe diarrhea Current Outpatient Medications Medication Sig Dispense Refill • HYDROcodone-acetaminophen 5-325 mg per tab 5-325 MG per tablet Take 1 Tab by mouth every 6 hours as needed for Pain, Mild. 90 Tab 0 • Calcium Carbonate-Vitamin D 500-125 MG-UNIT Oral Tablet Take by mouth daily. • Jokjuff-Czqbrvzypagfq-Sojoapzv 250-250-65 MG Oral Tablet Take 2 Tablets by mouth every 6 hours as needed for Pain. • promethazine (PHENERGAN) 25 MG Tablet Take 1 Tablet by mouth every 6 hours as needed for Nausea. • omeprazole (PRILOSEC) 20 MG CPDR Take 1 Capsule by mouth daily as needed. Furosemide 40 MG Oral Tablet (Lasix) Take 1 Tablet by mouth. Mon & Thurs • Centrum Silver 50+Women Oral Tablet Take by mouth daily. • Rizatriptan Benzoate 10 MG Oral Tablet Take 1 Tablet by mouth as needed for Migraine. • traZODone HCl 100 MG Oral Tablet (Desyrel) Take 1 Tablet by mouth at bedtime. • Ywzevhsquk-OXIM-Erfdnfik 50-325-40 MG Oral Tablet Take 1 Tablet by mouth 3 times a day as needed. • Lisinopril 5 MG Oral Tablet (Prinivil) Take 1 Tablet (5 mg) by mouth in the morning. 30 Tablet 5 • Apixaban 5 MG Oral Tablet (Eliquis) Take 1 Tablet (5 mg) by mouth in the morning and 1 Tablet (5 mg) before bedtime. 180 Tablet 3 • dilTIAZem HCl ER Beads 180 MG Oral Capsule Extended Release 24 Hour Take 1 Capsule by mouth in the morning. 90 Capsule 3 No current facility-administered medications for this visit. OBJECTIVE/PHYSICAL EXAMINATION: BP 116/64 (BP Site: Left Arm, BP Position: Sitting, BP Cuff Size: Regular) | Pulse 64 | Temp 36.4 °C (97.5 °F) | Resp 12 | Wt 52.3 kg (115 lb 6.4 oz) | SpO2 95% | BMI 22.54 kg/m² | BSA 1.49 m² General: Age appropriate, thin female in [...] intact 2+/4 Neuro: grossly normal exam Data: Echocardiogram April 21, 2022 The qualitative LV ejection fraction is 55-59% (normal). The LV wall thickness is borderline increased (concentric). The left ventricular diastolic function is moderately abnormal (grade II). The left atrium is severely enlarged (>48 ml/m^2,). Mild mitral regurgitation is present. Mild tricuspid regurgitation is present. The estimated pulmonary artery systolic pressure is 40mm Hg. Compared to last available study changes are noted as follows: Mild pulmonary hypertension now presen ASSESSMENT: 76 year old year old female issues as follows 1. Paroxysmal atrial fibrillation with elevated ventricular response rate, symptomatic. Patient nottolerating elevated dose of diltiazem. Pulmonary issues may limit beta-jitendra usage 2. Hypertension: Now trending low 3. Mitral insufficiency PLAN: Given relatively low blood pressures will discontinue lisinopril Reduce diltiazem to 120 mg p.o. daily extended release Patient to continue furosemide 2 days per week but to take 3 consecutive doses for the next 3 days Add spironolactone 12.5 mg 3 days per week BMP 2 weeks Patient to report edema response Discussed atrial fibrillation and possible recurrence. If returned symptomatic atrial fibrillation would likely need in-hospital management question antiarrhythmic therapy. Discussed additional therapies including ablation an indication DISPOSITION: Return 3 months Sterling Lockhart MD Cardiology, [address] [address] documented in this encounter Nursing Notes * Lolis Harley CMA - 06/15/2022 3:31 PM EST Examination Room: 14 Name: Alexia Campos Date of : (1945). Reason for Visit: f/u Interim Hospitalization(s): [facility] ED 05/15/22 Problems/Concerns: discuss side effects from diltiazem (LE edema, worsening HAs, gas) Chest Pain/SOB: denies [facility] Discussed: Not applicable [...] Office Visit Cardiology Sterling Lockhart MD [address] [facility] [place] [address] Scheduled Orders Name Type Priority Associated Diagnoses Orde r Schedule BASIC METABOLIC PANEL Lab Routine Generalized edema Paroxysmal atrial fibrillation (HCC) Tobacco abuse Spinal stenosis, unspecified spinal region Expected: 06/29/2022 (Approximate), Expires: 06/15/2023 Health Maintenance Due Date Last Done Comments Pneumococcal Vaccine: 65+ Years (1 - PCV) 1950 Depression Screening, Annual for Pts 12 and Over 1956 Alb / Creat Ratio 1962 Hepatitis C Screening 1962 DTaP,Tdap,and Td Vaccines (1 - Tdap) 12/21/1963 LUNG CANCER SCREENING - USE SMARTSET 71715 1994 Zoster Vaccines (1 of 2) 1994 [...] this encounter Medical Devices Implanted Type Area Research Chemical Engineer Device Identifier Shelf Expiration Date Model / Serial / Lot Dbx 10cc [id number] - [id number] - [id number] Implanted:Qty : 1 on 01/11/2015 [place] [facility] [place] Human N/A: Spine Lumbar MUSCULOSKELETAL TRANSPLANT FND 08/18/2016 [id number] / [id number] / Chip Cancellous 90cc [id number] - [id number] Implanted:Qty : 1 on 04/30/2017 by [place] Krause [place] [facility] [place] - Human N/A: Spine Lumbar MUSCULOSKELETAL TRANSPLANT FND 01/29/2018 [id number] / / Expedium Ti Sfx 5.5 Lat A2 - [id number] Implanted:Qty : 1 on 01/11/2015 by [place] Krause [place] [facility] [place]A: Spine Lumbar JNJ : [employer] [id number] / / Expedium Ti Sfx 5.5 Lat A6 - [id number] Implanted:Qty : 2 on 04/30/2017 by Colin Krause [place] [facility] [place]A: Spine Lumbar JNJ : [employer] [id number] / / documented as of this encounter Visit Diagnoses Diagnosis Paroxysmal atrial fibrillation (HCC)- Primary Atrial fibrillation Generalized edema Edema Tobacco abuse Tobacco use disorder Spinal stenosis, unspecified spinal region documented in this encounter Advance Directives Latest [...] the patient have Health Care Power of Clinical Application Consultant? No Care Teams Fire Regulator Relationship Specialty Start Date End Date Karissa Rodgers MD [address] [place] [address] PCP - General Family Medicine 09/04/14 documented as of this encounter"
--- OUTSIDE RECORDS SUMMARY | 2023-02-08 02:12 | External Medical Summary | Summary of Care ---
Author Name Unknown Organization [facility] Address [address] [place] [address] Phone [phone] Care Team Providers Care Casino Accountant Name Role Phone Karissa Rodgers MD Primary Care Provider [phone] Reason for Visit * Reason Comments Follow Up Encounter Details Date Type Department Care Team Description 08/20/2022 Office Visit Cardiology, [facility] [address] [place] [address] Sterling Lockhart MD [address] [place] [address] Paroxysmal atrial fibrillation (HCC)*; Chronic bilateral low back pain without sciatica Allergies Active Allergy Reactions Severity Noted Date Comments Chlorhexidine Itching 09/10/2020 Hydrochlorothiazide Other (Please comment) 02/26/2017 Caused pancreatitis Metronidazole 02/09/2017 Pill causes severe diarrhea Ondansetron Other (Please comment) High 03/04/2018 TAYLOR documented as of this encounter (statuses as of 08/20/2022) Medications Medication Sig Dispensed Refills Start Date [...] Tablet by mouth at bedtime. 0 Active Dwhdvfhnon-PDDF-Pp ffeine 50-325-40 MG Oral Tablet Take 1 [...] as of this encounter (statuses as of 08/20/2022) Active Problems Problem Noted Date S/P laminectomy with spinal fusion 06/01 Postoperative anemia due to acute blood loss 05/02/2017 HTN (hypertension) 05/02/2017 Tobacco abuse 05/02/2017 Spinal stenosis 05/02/2017 GERD (gastroesophageal reflux disease) 1 07/03/2016 SIRS (systemic inflammatory response syn drome) 05/02/2017 Thrombocytopenia 05/02/2017 Bilateral low back pain without sciatica 05/17/2015 documented as of this encounter (statuses as of 08/20/2022) Social History Tobacco Use Types Packs/Day Years [...] Sign Reading Time Taken Comments Blood Pressure 112/72 08/20/2022 2:59 PM EDT Pulse 64 08/20/2022 2:59 PM EDT Temperature - - Respiratory Rate 18 08/20/2022 2:59 PM EDT Oxygen Saturation - - Inhaled Oxygen Concentration - - Weight - - Height - - Body Mass Index - - documented in this encounter Functional Status Functional [...] Progress Notes * Sterling Lockhart MD - 08/20/2022 3:05 PM EDT AUGUST 20, 2022 Cardiology Follow Up Referring Provider: PCP: KARISSA RODGERS Dr [address] [place] [address] [phone] Chief Complaint: SUBJECTIVE: Alexia Campos is a [...] lung disease Patient presents today in follow-up. Generally has been improved since last visit. No dizziness lightheadedness syncope or near syncope no further tachyarrhythmias. Edema has improved and medicationsadjusted now the stable levels. No fevers chills chronic back pain remains initial no bleeding diffi culties on chronic anticoagulation A Complete Review of Systems is as stated above or negative. Patient Active Problem List Diagnosis Code • Bilateral low back pain without sciatica M54.50 • Postoperative anemia due to acute blood loss D62 • HTN (hypertension) I10 • Tobacco abuse Z72.0 • Spinal stenosis M48.00 • GERD (gastroesophageal reflux disease) K21.9 • SIRS (systemic inflammatory response syndrome) ([facility]) R65.10 • Thrombocytopenia ([facility]) D69.6 • S/P laminectomy with spinal fusion [...] Oral Tablet Take by mouth daily. • Etcqplv-Jgludltdjncky-Qzovsdbo 250-250-65 MG Oral Tablet Take 2 Tablets by mouth every 6 hours as needed for Pain. • promethazine (PHENERGAN) 25 MG Tablet Take 1 Tablet by mouth every 6 hours as needed for Nausea. • omeprazole (PRILOSEC) 20 MG CPDR Take 1 Capsule by mouth daily as needed. • Centrum Silver 50+Women Oral Tablet Take by mouth daily. • Rizatriptan Benzoate 10 MG Oral Tablet Take 1 Tablet by mouth as needed for Migraine. • traZODone HCl 100 MG Oral Tablet (Desyrel) Take 1 Tablet by mouth at bedtime. • Bdyzmjihfq-SGUC-Mgxzpqiq 50-325-40 MG Oral Tablet Take 1 Tablet by mouth 3 times a day as needed. • Apixaban 5 MG Oral Tablet (Eliquis) Take 1 Tablet (5 mg) by mouth in the morning and 1 Tablet (5 mg) before bedtime. 180 Tablet 3 Furosemide 40 MG Oral Tablet (Lasix) Take 1 Tablet by mouth in the morning. Chago & Kelvin andas directed. (Patient taking differently: Take 0.5 Tablets by mouth in the morning. Chago & Thursand as directed.) 36 Tablet 3 • Spironolactone 25 MG Oral Tablet (Aldactone) Take one half 3 days per week 24 Tablet 3 No current facility-administered medications for this visit. OBJECTIVE/PHYSICAL EXAMINATION: BP 112/72 | Pulse 64 | Resp 18 General: Age appropriate, thin female in no [...] as follows: Mild pulmonary hypertension now present ASSESSMENT: 76 year old year old female issues as follows 1. Paroxysmal atrial fibrillation with elevated ventricular response rate, symptomatic when present. 2. Hypertension: Now trending low 3. Mitral insufficiency PLAN: Continue furosemide 20 mg p.o. daily, spironolactone 12.5 mg 3 days per week All of medications remains same Our records reflect diltiazem extended release 120 mg per day Patient notes primary care following renal function DISPOSITION: Return 6 months Sterling [facility] [address] [facility] [address] documented in this encounter Nursing Notes * Pamela Casillas LPN - 08/20/2022 2:59 PM EDT Examination Room: 12 Name: Alexia Campos Date of : (1945) Reason for Visit: Follow up Interim Hospitalization(s): Denies Problems/Concerns: Denies Chest Pain/SOB: Denies [facility] is a way you can talk to your provider online through e-mail. Would you like to sign up? I can activate it for you? ALREADY ACTIVE Patient was instructed to not get up [...] Lockhart MD [address] [place] [address] Health Maintenance Due Date Last Done Comments Pneumococcal Vaccine: 65+ Years (1 - PCV) 1950 Depression Screening, Annual for Pts 12 and Over 1956 Albumin/Creatinine Ratio 1962 Hepatitis C Screening 1962 DTaP,Tdap,and Td Vaccines (1 - Tdap) 12/21/1963 LUNG CANCER SCREENING - USE SMARTSET 36636 1994 Zoster Vaccines (1 of 2) 1994 COVID-19 Vaccine (3 - Booster for Pfizer series) 08/30/2020 07/05/2020, 06/07/2020 DXA Scan 12/26/2021 12/26/2014 Influenza Vaccine (FLU shot) (Season Ended) 2023 GFR - Renal Function 03/20/2023 03/20/2022, 10/23/2017, [...] this encounter Medical Devices Implanted Type Area Delphi Programmer Device Identifier Shelf Expiration Date Model / Serial / Lot Dbx 10cc [id number] - [id number] - [id number] Implanted:Qty : 1 on 01/11/2015 by Colin Krause MD at [place] [facility] [place] Tissue - Human N/A: Spine Lumbar MUSCULOSKELETAL TRANSPLANT FND 08/18/2016 [id number] / [id number] / Chip Cancellous 90cc [id number] - [id number] Implanted:Qty : 1 on 04/30/2017 by Colin Krause MD at OR [facility] [place] Tissue - Human N/A: Spine Lumbar MUSCULOSKELETAL TRANSPLANT FND 01/29/2018 [id number] / / Expedium Ti Sfx 5.5 Lat A2 - [id number] Implanted:Qty : 1 on 01/11/2015 by Colin Krause MD at OR [facility] [place] N/A: Spine Lumbar JNJ : [employer] [id number] / / Expedium Ti Sfx 5.5 Lat A6 - [id number] Implanted:Qty : 2 on 04/30/2017 by Colin Krause MD at OR [facility] [place] N/A: Spine Lumbar JNJ : [employer] [id number] / / documented as of this encounter Visit Diagnoses Diagnosis Paroxysmal atrial fibrillation (HCC)- Primary Atrial fibrillation Chronic bilateral low back pain without sciatica documented in this encounter Advance Directives Latest [...] the patient have Health Care Power of Steel Erector? No Care Teams Casino Accountant Relationship Specialty Start Date End Date Karissa Rodgers MD [address] [place] [address] PCP - General Family Medicine 09/04/14 documented as of this encounter"
--- OUTSIDE RECORDS SUMMARY | 2023-02-08 02:12 | External Medical Summary | Summary of Care ---
Author Name Unknown Organization [facility] Address [address] [place] [address] Phone [phone] Care Team Providers Care Engineering Psychologist Name Role Phone Casey Rodgers MD Primary Care Provider [phone] Reason for Visit * Reason Onset Date Comments Advice 07/23/2022 Encounter Details Date Type Department Care Team Description 07/23/2022 Telephone Cardiology, [facility] [address] [place] [address] Sterling Lockhart MD [address] [place] [...] Tablet by mouth at bedtime. 0 Active Obixraywqz-GFSG-Jzau eine 50-325-40 MG Oral Tablet Take 1 [...] encounter Miscellaneous Notes * Telephone Encounter - Sterling Lockhart MD [...] Lockhart MD [address] [place] [address] Health Maintenance Due Date Last Done Comments Pneumococcal Vaccine: 65+ Years (1 - PCV) 1950 Depression Screening, Annual for Pts 12 and Over 1956 Albumin/Creatinine Ratio 1962 Hepatitis C Screening 1962 DTaP,Tdap,and Td Vaccines (1 - Tdap) 12/21/1963 LUNG CANCER SCREENING - USE SMARTSET 09906 1994 Zoster Vaccines (1 of 2) 1994 [...] this encounter Medical Devices Implanted Type Area Legal Process Specialist Device Identifier Shelf Expiration Date Model / Serial / Lot Dbx 10cc [id number] - [id number] - [id number] Implanted:Qty : 1 on 01/11/2015 [place] [facility] [place] - Human N/A: Spine Lumbar MUSCULOSKELETAL TRANSPLANT FND 08/18/2016 [id number] / [id number] / Chip Cancellous 90cc [id number] - [id number] Implanted:Qty : 1 on 04/30/2017 by Colin Krause MD at OR [facility] Tissue - Human N/A: Spine Lumbar MUSCULOSKELETAL TRANSPLANT FND 01/29/2018 [id number] / / Expedium Ti Sfx 5.5 Lat A2 - [id number] Implanted:Qty : 1 on 01/11/2015 by [place] Krause [place] [facility] [place]A: Spine Lumbar JNJ : [employer] [id number] / / Expedium Ti Sfx 5.5 Lat A6 - [id number] Implanted:Qty : 2 on 04/30/2017 by Colin Krause [place] [facility] [place]A: Spine Lumbar JNJ : [employer] [id number] / / documented as of this encounter [...] the patient have Health Care Power of Maker Up Folding? No Care Teams Engineering Psychologist Relationship Specialty Start Date End Date Casey Rodgers MD [address] [place] [address] PCP - General Family Medicine 09/04/14 documented as of this encounter
--- OUTSIDE RECORDS SUMMARY | 2023-02-08 02:13 | External Medical Summary | Summary of Care ---
Author Name Unknown Organization [place] [address] Care Team Providers Care Dot Compliance Coordinator Name Role Phone Casey Rodgers MD Primary Care Provider [phone] Reason for Visit * Reason Onset Date Comments Med Request 03/25/2022 medication change 03/25/2022 Encounter Details Date Type Department Care Team Description 03/25/2022 Telephone Cardiology, [facility] [address] [place] [address] Jadiel Lockhart MD [address] [place] [address] Med Request; medication change Allergies Active Allergy Reactions Severity Noted Date Comments Chlorhexidine Itching 09/10/2020 Hydrochlorothiazide Other (Please comment) 02/26/2017 Caused pancreatitis Metronidazole 02/09/2017 Pill causes severe diarrhea Ondansetron Other (Please comment) High 03/04/2018 TAYLOR documented as of this encounter (statuses as of 05/26/2022) Medications Medication Sig Dispensed Refills Start Date [...] Active promethazine (PHENERGAN) 25 MG Tablet Take 25 mg by mouth every 6 hours as needed for Nausea. 0 Active omeprazole (PRILOSEC) 20 MG CPDR Take 20 mg by mouth daily. 0 Active Furosemide 40 MG Oral Tablet (Lasix) Take 1 Tablet (40 mg) by mouth in the morning. 0 Active Centrum Silver 50+Women Oral Tablet Take by mouth daily. 0 Active Rizatriptan Benzoate 10 MG Oral Tablet Take 1 Tablet (10 mg) by mouth as needed for Migraine. 0 Active traZODone HCl 100 MG Oral Tablet (Desyrel) Take 1 Tablet (100 mg) by mouth at bedtime. 0 Active Qbelnjrsds-RESH-P affeine 50-325-40 MG Oral Tablet (Fioricet) Take 1 Tablet by mouth 3 times a day as needed. 0 Active Lisinopril 5 MG Oral Tablet (Prinivil) Take 1 Tablet (5 mg) by mouth in the morning. 30 Tablet 5 03/20/2022 Active dilTIAZem HCl ER Coated Beads 120 MG Oral Capsule Extended Release 24 Hour (Cardizem CD) Take 1 Capsule (120 mg) by mouth in the morning. 90 Capsule 3 03/26/2022 Active Apixaban 5 MG Oral Tablet (Eliquis) Take 1 Tablet (5 mg) by mouth in the morning and 1 Tablet (5 mg) before bedtime. 180 Tablet 3 03/26/2022 Active Apixaban 5 MG Oral Tablet (Eliquis) Take 1 Tablet (5 mg) by mouth in the morning and 1 Tablet (5 mg) before bedtime. 0 03/25/2022 Discontinued (Refill) dilTIAZem HCl ER Coated Beads 120 MG Oral Capsule Extended Release 24 Hour (Cardizem CD) Take 1 Capsule (120 mg) by mouth in the morning. 0 03/05/2022 03/25/2022 Discontinued (Refill) documented as of this encounter (statuses as of 05/26/2022) Active Problems Problem Noted Date S/P laminectomy with spinal fusion 06/01 Postoperative anemia due to acute blood loss 05/02/2017 HTN (hypertension) 05/02/2017 Tobacco abuse 05/02/2017 Spinal stenosis 05/02/2017 GERD (gastroesophageal reflux disease) 1 07/03/2016 SIRS (systemic inflammatory response syn drome) 05/02/2017 Thrombocytopenia 05/02/2017 Bilateral low back pain without sciatica 05/17/2015 documented as of this encounter (statuses as of 05/26/2022) Social History Tobacco Use Types Packs/Day Years [...] as of this encounter Miscellaneous Notes * Addendum Note - Jessica Marion RPh - 05/26/2022 1:05 PM ESTAddended by: JESSICA MARION on: 05/26/2022 01:05 PM Modules accepted: Orders * Telephone Encounter - Jessica Marion RPh - 05/26/2022 1:01 PM EST Pt requesting dose increase on Diltiazem 120 mg once daily to 180 mg tablets once daily. Pt states provider sent in 14 days supply and med is working well and requesting continuation. Pending Prescriptions: Disp Refills dilTIAZem HCl ER Beads 180 MG Oral Capsul*90 Cap*3 Sig: Take 1 Capsule by mouth in the morning. Signed Prescriptions: Disp Refills dilTIAZem HCl ER Coated Beads 120 MG Oral *90 Cap*3 Sig: Take 1 Capsule (120 mg) by mouth in the morning. Authorizing Provider: JADIEL LOCKHART Apixaban 5 MG Oral Tablet (Eliquis) 180 Ta*3 Sig: Take 1 Tablet (5 mg) by mouth in the morning and 1 tablet (5 mg) before bedtime. Authorizing Provider: JADIEL LOCKHART Please sign if agreeable. Thank you, Jessica Marion, PharmD Clinical Pharmacist [facility] [phone] 05/26/2022, 1:04 PM * Telephone Encounter - Sally Pérez CPhT - 05/26/2022 11:24 AM EST Pt calling in to request a dose change on their diltiazem. Current dose: 120mg once daily Requested dose: 180mg once daily Reason for request: pt stated MD sent in 14 days for her and it is working well for her- she is asking for it to be continued Preferred pharmacy: [facility] #[id number]- [place] Patient unwilling to speak with pharmacist at this time. Routing to pharmacist pool to advise. Thank you, Sally Pérez CPhT [employer] [facility] 05/26/2022, 11:24 AM * Telephone Encounter - YONNY Burrows - 03/25/2022 9:42 AM EST Pt called these medications pended were given to pt in the ER She needs Refills Please refill Thank you YONNY Burrows documented in this encounter Plan of Treatment Upcoming Encounters Date Type Specialty Care Team Description 06/15/2022 Office Visit Cardiology Jadiel Lockhart MD [address] [place] [address] Health Maintenance Due Date Last Done Comments Pneumococcal Vaccine: 65+ Years (1 - PCV) 1950 Depression Screening, Annual for Pts 12 and Over 1956 Alb / Creat Ratio 1962 Hepatitis C Screening 1962 DTaP,Tdap,and Td Vaccines (1 - Tdap) 12/21/1963 LUNG CANCER SCREENING - USE SMARTSET 18478 1994 Zoster Vaccines (1 of 2) 1994 [...] this encounter Medical Devices Implanted Type Area Manager Cardiovascular Device Identifier Shelf Expiration Date Model / Serial / Lot Dbx 10cc [id number] - [id number] - [id number] Implanted:Qty : 1 on 01/11/2015 by Colin Krause MD at [place] [facility] [place] Tissue - Human N/A: Spine Lumbar MUSCULOSKELETAL TRANSPLANT FND 08/18/2016 [id number] / [id number] / Chip Cancellous 90cc [id number] - [id number] Implanted:Qty : 1 on 04/30/2017 by Colin Krause MD at [place] [facility] [place] Tissue - Human N/A: Spine Lumbar MUSCULOSKELETAL TRANSPLANT FND 01/29/2018 [id number] / / Expedium Ti Sfx 5.5 Lat A2 - [id number] Implanted:Qty : 1 on 01/11/2015 by Colin Krause MD at [place] [facility] [place] N/A: Spine Lumbar JNJ : [employer] [id number] / / Expedium Ti Sfx 5.5 Lat A6 - [id number] Implanted:Qty : 2 on 04/30/2017 by Colin Krause MD at [place] [facility] [place] N/A: Spine Lumbar JNJ : ETH[employer] [id number] / / documented as of this encounter [...] the patient have Health Care Power of District Resource Officer? No Care Teams Dot Compliance Coordinator Relationship Specialty Start Date End Date Casey Rodgers MD [address] [place] [address] PCP - General Family Medicine 09/04/14 documented as of this encounter
--- OUTSIDE RECORDS SUMMARY | 2023-02-08 02:13 | External Medical Summary | Summary of Care ---
Author Name Unknown Organization [place] [address] Care Team Providers Care Intermediate Manager Name Role Phone Karissa Rodgers MD Primary Care Provider [phone] Reason for Visit * Reason Comments Follow Up Encounter Details Date Type Department Care Team Description 11/07/2018 Office Visit Cardiology, [facility] [address] [facility] [place] [address] Sterling Lockhart MD [address] [facility] [place] [address] [phone] HTN, goal below 140/90*; HTN (hypertension) Allergies Active Allergy Reactions Severity Noted Date Comments Hydrochlorothiazide Other (Please comment) 02/26/2017 Caused pancreatitis Metronidazole 02/09/2017 Pill causes severe diarrhea documented as of this encounter (statuses as of 11/07/2018) Medications Medication Sig Dispensed Refills Start Date End Date Status gabapentin (NEURONTIN) 300 MG CapsuleIndications :1 tab three times daily and 2 tabs at bedtime Take 600 mg by mouth 4 times a day. Indications: 1 tab three times daily and 2 tabs at bedtime 0 10/29/2015 Active pantoprazole (PROTONIX) 40 MG TBEC Take 1 Tab by mouth daily. 12 02/24/2017 Active lisinopril (PRINIVIL) 10 MG Tablet Take 1 Tab by mouth daily. Patient reports she takes as needed. 30 Tab 11 02/26/2017 Active HYDROcodone-acetam inophen 5-325 mg per tab 5-325 MG per tablet Take 1 Tab by mouth every 6 hours as needed for Pain, Mild. 90 Tab 0 07/20/2017 Active Calcium Carbonate-Vitamin D (CALCIUM 500 + D) 500-125 MG-UNIT TABS Take by mouth. 0 Active Aspirin-Acetaminop hen-Caffeine (EXCEDRIN MIGRAINE) 250-250-65 MG per tablet Take 1 Tab by mouth every 6 hours as needed for Pain. 0 Active promethazine (PHENERGAN) 25 MG Tablet Take 25 mg by mouth every 6 hours as needed for Nausea. 0 Active omeprazole (PRILOSEC) 20 MG CPDR Take 20 mg by mouth daily. 0 Active LINZESS 145 MCG Capsule Take 1 capsule (145 mcg) by mouth daily on an empty stomach before first meal of the day 5 10/26/2017 11/07/2018 Discontinued documented as of this encounter (statuses as of 11/07/2018) Active Problems Problem Noted Date S/P laminectomy with spinal fusion 06/01 Postoperative anemia due to acute blood loss 05/02/2017 HTN (hypertension) 05/02/2017 Tobacco abuse 05/02/2017 Spinal stenosis 05/02/2017 GERD (gastroesophageal reflux disease) 1 07/03/2016 SIRS (systemic inflammatory response syn drome) 05/02/2017 Thrombocytopenia 05/02/2017 Bilateral low back pain without sciatica 05/17/2015 documented as of this encounter (statuses as of 11/07/2018) Social History Tobacco Use Types Packs/Day Years Used Date Current Every Day Smoker Cigarettes 0.25 50 Started: 09/04/1965 Smokeless Tobacco: Never Used Alcohol Use Drinks/Week oz/Week Comments No Sex Assigned at Date Recorded Not on file Job Start Date Occupation Industry Not on file Not on file Not on file Travel History Travel Start Travel End documented as of this encounter Last Filed Vital Signs Vital Sign Reading Time Taken Comments Blood Pressure 124/74 11/07/2018 10:27 AM EDT Pulse 60 11/07/2018 10:27 AM EDT Temperature - - Respiratory Rate 16 11/07/2018 10:27 AM EDT Oxygen Saturation - - Inhaled Oxygen Concentration - - Weight 51.7 kg (114 lb) 11/07/2018 10:27 AM EDT Height - - Body Mass Index 22.26 04/30/2017 7:59 AM EST documented in this [...] Progress Notes * Sterling Lockhart MD - 11/07/2018 11:01 AM EDT 11/07/2018 Cardiology Follow Up Referring Provider: PCP: KARISSA RODGERS [address] [place] [address] [phone] Chief Complaint: Follow-up past syncope, labile hypertension SUBJECTIVE: Alexia Campos is a 72 year old year old female 1. Syncope in the setting of polypharmacy for severe low back pain, status post multiple back surgeries. 2. Hypertension. 3. Hyperlipidemia. 4. Mild mitral insufficiency by past echocardiography. Patient presents today in routine followup notes hospitalization in [place] in August with recurrentpancreatitis. Anticipates abdominal MRI evaluation for possible stent. Currently asymptomatic weight is been trending upwards. Notes no chest pains notes no dizziness other than occasional lightheadedness with standing notes no syncope or near syncope. Back still remains limiting issue. Overall hasbeen stable from a cardiac standpoint A Complete Review of 10 Systems is as stated above or negative. Patient Active Problem List Diagnosis Code • Bilateral low back pain without sciatica M54.5 • Postoperative anemia due to acute blood loss D62 • HTN (hypertension) I10 • Tobacco abuse Z72.0 • Spinal stenosis M48.00 • GERD (gastroesophageal reflux disease) K21.9 • SIRS (systemic inflammatory response syndrome) (HCC) R65.10 • Thrombocytopenia (HCC) D69.6 • S/P laminectomy with spinal fusion Z98.1 Review of patient's allergies indicates: Allergen Reactions • Hctz [Hydrochlorothiazide] Other (Please comment) Caused pancreatitis • Metronidazole Pill causes severe diarrhea Current Outpatient Medications Medication Sig Dispense Refill • omeprazole (PRILOSEC) 20 MG CPDR Take 20 mg by mouth daily. • promethazine (PHENERGAN) 25 MG Tablet Take 25 mg by mouth every 6 hours as needed for Nausea. • Kpeefjq-Ttnffacupqqsq-Yvpjkkdd (EXCEDRIN MIGRAINE) 250-250-65 MG per tablet Take 1 Tab by mouthevery 6 hours as needed for Pain. • Calcium Carbonate-Vitamin D (CALCIUM 500 + D) 500-125 MG-UNIT TABS Take by mouth. • HYDROcodone-acetaminophen 5-325 mg per tab 5-325 MG per tablet Take 1 Tab by mouth every 6 hours as needed for Pain, Mild. 90 Tab 0 • lisinopril (PRINIVIL) 10 MG Tablet Take 1 Tab by mouth daily. Patient reports she takes as needed. 30 Tab 11 • pantoprazole (PROTONIX) 40 MG TBEC Take 1 Tab by mouth daily. 12 • gabapentin (NEURONTIN) 300 MG Capsule Take 600 mg by mouth 4 times a day. Indications: 1 tab three times daily and 2 tabs at bedtime OBJECTIVE/PHYSICAL EXAMINATION: BP 124/74 | Pulse 60 | Resp 16 | Wt 114 lbs (51.710kg) | BMI 22.26 kg/m² | BSA 1.48 m² General: no acute distress and stated age Head: normocephalic, no masses, lesions, tenderness or abnormalities Eyes: conjunctiva are pink and non-injected, sclera clear Throat: clear Nares: without discharge Neck: supple, no adenopathy, no bruits, normal jugular venous pulse, no hepatojugular reflux, no carotid bruits Chest: normal shape and normal respiratory effort Lungs: clear to auscultation and percussion Cardiac Exam: - regular rate & rhythm, no murmurs gallops or rubs - normal S-1, normal S-2 Pulses: 2(+) throughout Abdomen: abdomen soft, non-tender, no abnormal masses, no hepatosplenomegaly, no abdominal bruit, no femoral bruit Musculoskeletal: no gait disturbance, no joint inflammation, no deforming arthritis Extremities: no edema, no cyanosis, pulses intact 2+/4 Neuro: grossly normal exam Data: EKG performed today, 11/07/2018 , and reviewed personally sinus bradycardia, rate 53 beats per minutepoor progression V1 V2 no significant change from prior studies ASSESSMENT: 72 year old year old female Past history of syncope secondary to multiple medications, hypertension controlled. PLAN: Now taking lisinopril at night Recurrent pancreatitis evaluation ongoing DISPOSITION: Will see as needed patient comfortable with care will contact with any concerns Sterling Lockhart MD [facility] Cardiology, [address] [place] [address] documented in this encounter Nursing Notes * Jory Ayala LPN - 11/07/2018 10:26 AM EDT Examination Room: Name: Alexia Campos Date of : (1945). Reason for Visit: follow up Interim Hospitalization(s): August 2018 x6days pancreatitis Problems/Concerns: denies cardiac concerns Chest Pain/SOB: denies MyGeisigner sign up: NO documented in this encounter Plan of Treatment Health Maintenance Due Date Last Done Comments DTaP,Tdap,and Td Vaccines (1 - Tdap) 12/21/1964 BREAST CANCER SCREENING DISCUSSION YEARLY AGES 40-75 1984 PNEUMOCOCCAL ADULT 65 YRS AND OVER (1 of 2 - PCV13) 2009 *DEPRESSION SCREENING, ANNUAL FOR PTS 18 AND OVER 09/08/2014 *COLORECTAL CANCER SCREENING (COLONOSCOPY 10 YEARS; SIGMOIDOSCOPY 5 YEARS; COLOGUARD 3 YEARS; FOBT 1 YEAR),AGES 50-75 06/13/2017 Influenza Vaccine (FLU shot) (#1) 2018 LIPID SCREEN EVERY 5 YRS-WOMEN AGE 45-75 09/05/2019 09/04/2014 DIABETES SCREEN EVERY 3 YRS-AGE 45 AND ABOVE 10/23/2020 10/23/2017, 05/03/2017, 05/02/2017, Additional history exists DXA-SCREENING EVERY 7 YRS-USE SMARTSET# 3343 TO ORDER 12/26/2021 12/26/2014 MENINGOCOCCAL (MENACTRA) Aged Out No longer eligible based on patient's age to complete this topic documented as of this encounter Implants Implanted Type Area Safety Scientist Device Identifier Shelf Expiration Date Model / Serial / Lot Dbx 10cc 091529 - [id number] - [id number] Implanted:Qty : 1 on 01/11/2015 [place] Kra[place] [facility] [place] Human N/A: Spine Lumbar MUSCULOSKELETAL TRANSPLANT FND 08/18/2016 [id number] / [id number] / Dbx 10 110512 - [id number] - [id number] Implanted:Qty : 1 on 01/11/2015 by Colin Krause [place] [facility] [place] - Human N/A: Spine Lumbar MUSCULOSKELETAL TRANSPLANT FND 08/18/2016 [id number] / [id number] / Chip Cancellous 30cc [id number] - [id number] Implanted:Qty : 1 on 04/30/2017 by [place] Krause [place] [facility] [place] - Human N/A: Spine Lumbar MUSCULOSKELETAL TRANSPLANT FND 01/20/2020 [id number] / / Chip Cancellous 90cc [id number] - [id number] Implanted:Qty : 1 on 04/30/2017 by Colin Krause [place] [facility] [place] - Human N/A: Spine Lumbar MUSCULOSKELETAL TRANSPLANT FND 01/29/2018 [id number] / / Viper2 Straight [id number] Cocr - [id number] Implanted:Qty : 2 on 01/11/2015 by Colin Krause [place] [facility] [place]A: Spine Lumbar JNJ : DEPUY SPINE [id number] / / Screw 6x40 Poly Si [id number] - [id number] Implanted:Qty : 1 on 01/11/2015 by [place] Kra[place] [facility] [place]: Spine Lumbar JNJ : [employer] [id number] / / Screw 6x40 Ti Uni [id number] - [id number] Implanted:Qty : 8 on 01/11/2015 by [place] Kra[place] [facility] [place]: Spine Lumbar JNJ : [employer] [id number] / / Screw 5x40 Ti Uni [id number] - [id number] Implanted:Qty : 2 on 01/11/2015 by [place] Kra[place] [facility] [place]: Spine Lumbar JNJ : [employer] [id number] / / Screw 6x45 Ti Uni [id number] - [id number] Implanted:Qty : 6 on 01/11/2015 by [place] Kra[place] [facility] [place]A: Spine Lumbar JNJ : [employer] [id number] / / Expedium Ti Sfx 5.5 Lat A2 - [id number] Implanted:Qty : 1 on 01/11/2015 by Colin Krause [place] [facility] [place]A: Spine Lumbar JNJ : ETH[employer] [id number] / / Screw Implanted:Qty : 2 on 04/30/2017 by Colin Krause [place] [facility] [place]A: Spine Lumbar SYNTHES : DEPUY [id number] / / Screw Implanted:Qty : 2 on 04/30/2017 by Colin Krause [place] [facility] [place]A: Spine Lumbar SYNTHES : DEPUY [id number] / / Cage Implanted:Qty : 4 on 04/30/2017 by Colin Krause [place] [facility] [place]A: Spine Lumbar SYNTHES : DEPUY [id number] / / Connector 5.5 Du [id number] - [id number] Implanted:Qty : 4 on 04/30/2017 by Colin Krause [place] [facility] [place]A: Spine Lumbar JNJ : [employer] [id number] / / Uriel 120mm [id number] - [id number] Implanted:Qty : 2 on 04/30/2017 by Coiln Krause [place] [facility] [place]A: Spine Lumbar JNJ : [employer] [id number] / / Screw Set Sng Inner [id number] - [id number] Implanted:Qty : 6 on 04/30/2017 by Colin Krause [place] [facility] [place]A: Spine Lumbar JNJ : ETH[employer]ATIONS [id number] / / Expedium Ti Sfx 5.5 Lat A6 - [id number] Implanted:Qty : 2 on 04/30/2017 by Colin Krause [place] [facility] [place]A: Spine Lumbar JNJ : ETH[employer] [id number] / / Screw 7x45 Ti Uni [id number] - [id number] Implanted:Qty : 4 on 01/11/2015 by Colin Kra[place] [facility] [place]ed:Qty : 2 on 04/30/2017 [place] [facility] [place]A: Spine Lumbar JNJ : DEPUY SPINE [id number] / / Screw Set Sng Inner [id number] - [id number] Implanted:Qty : 20 on 01/11/2015 by [place] Kra[place] [facility] [place]:Qty : 4 on 04/30/2017 [place] [facility] [place]A: Spine Lumbar JNJ : DEPUY SPINE [id number] / / Graft Infuse Bone Lg [id number] - [id number] Implanted:Qty : 1 on 04/30/2017 by Colin Krause [place] [facility] [place]A: Spine Lumbar [employer] : NEURO CARE 06/10/2018 [id number] / / documented as of this encounter Visit Diagnoses Diagnosis HTN, goal below 140/90- Primary Unspecified essential hypertension HTN (hypertension) Unspecified essential hypertension documented in this encounter Advance Directives Documents on File Type Date Recorded Patient Water Reuse Program Manager Expl anation Advanced Directive Advanced Directive 01/04/2015 2:13 PM Advanced Directive 04/26/2017 4:17 PM Latest Code Status on File Code Status Date Activated Date Inactivated Comments Full Code 04/30/2017 7:41 AM 05/04/2017 4:50 PM Thi s order reflects the patients wishes and were consensually agreed upon. Full Code 01/11/2015 8:11 AM 01/18/2015 8:08 PM This o rder reflects the patients wishes and were consensually agreed upon. Discussion of Advance Directives occurred with: Patient Does the patient have a Living Will? No Does the patient have Health Care Power of Attor shubham? No"
--- OUTSIDE RECORDS SUMMARY | 2023-02-08 02:13 | External Medical Summary ---
Author Name Unknown Address Unknown Organization [facility] [address] [place] [address] Laboratory Report Ordering Provider Test Date Status JAVID DUVALL 03/20/2022 12:06:22 Final Observation Date Value Abnormality Reference (Units ) Status SYNC LEUKOCYTES IN BLOOD BY AUTOMATED COUNT 03/20/2022 12:06:22 11.23 Above high normal 4.00-10.80 (K/uL) Final Segs 03/20/2022 12:06:22 79.0 Above high normal 40.0-75.0 (%) Final Lymphs % 03/20/2022 12:06:22 14.9 Below low normal 18.0-42.0 (%) Final Monos 03/20/2022 12:06:22 5.3 1.0-11.0 (%) Final Eosinophils 03/20/2022 12:06:22 0.4 0.0-6.0 (%) Final Basos 03/20/2022 12:06:22 0.4 0.0-2.0 (%) Final Absolute Segs 03/20/2022 12:06:22 8.86 Above high normal 1.80-7.70 (K/uL) Final Lymphs, absolute 03/20/2022 12:06:22 1.67 1.00-4.80 (K/ul) Final Monos, Abs 03/20/2022 12:06:22 0.60 0.00-1.10 (K/uL) Final Eos, Abs 03/20/2022 12:06:22 0.05 0.00-0.70 (K/uL) Final Basos, Abs 03/20/2022 12:06:22 0.05 0.00-0.20 (K/uL) Final Performing Location [facility] - [address] [place] [address]
--- OUTSIDE RECORDS SUMMARY | 2023-02-08 02:13 | External Medical Summary | Summary of Care ---
Author Name Unknown Organization [place] [address] Phone Care Team Providers Care Brazing Furnace Operator Name Role Phone Casey Rodgers MD Primary Care Provider + [phone] Encounter Details Date Type Department Care Team Description 10/20/2017 Result Scan Cardiology, [facility] [address] [facility] [place] [address] Sterling Lockhart MD [address] [facility] [place] [address] <No scans attached> Allergies Active Allergy Reactions Severity Noted Date Comments Hydrochlorothiazide Other (Please comment) 02/26/2017 Caused pancreatitis Metronidazole 02/09/2017 Pill causes severe diarrhea as of this encounter Medications Prescription Sig. Disp. Refills Start Date End Date Status gabapentin (NEURONTIN) 300 MG CapsuleIndications:1 tab three times daily and 2 tabs at bedtime Take 600 mg by mouth 4 times a day. Indications: 1 tab three times daily and 2 tabs at bedtime 10/29/2015 Active pantoprazole (PROTONIX) 40 MG TBEC Take 1 Tab by mouth daily. 12 02/24/2017 Active lisinopril (PRINIVIL) 10 MG Tablet Take 1 Tab by mouth daily. Patient reports she takes as needed. 30 Tab 11 02/26/2017 Active HYDROcodone-acetaminoph en 5-325 mg per tab 5-325 MG per tablet Take 1 Tab by mouth every 6 hours as needed for Pain, Mild. 90 Tab 0 07/20/2017 Active as of this encounter Active Problems Problem Noted Date S/P laminectomy with spinal fusion 06/01 Postoperative anemia due to acute blood loss 05/02/2017 HTN (hypertension) 05/02/2017 Tobacco abuse 05/02/2017 Spinal stenosis 05/02/2017 GERD (gastroesophageal reflux disease) 1 07/03/2016 SIRS (systemic inflammatory response syn drome) (HCC) 05/02/2017 Thrombocytopenia (HCC) 05/02/2017 Bilateral low back pain without sciatica 05/17/2015 as of this encounter Social History Tobacco Use Types Packs/Day Years Used Date Current Every Day Smoker Cigarettes 0.25 50 Started: 09/04/1965 Smokeless Tobacco: Never Used Alcohol Use Drinks/Week oz/Week Comments No Sex Assigned at Date Recorded Not on file as of this encounter Functional Status Functional [...] (5 years old or older No 04/30/2017 as of this encounter Plan of Treatment Upcoming Encounters Date Type Specialty Care Team Description 11/07/2018 Office Visit Cardiology Sterling Lockhart MD [address] [place] [address] [phone] Health Maintenance Due Date Last Done Comments DTaP,Tdap,and Td Vaccines (1 - Tdap) 12/21/1963 BREAST CANCER SCREENING DISC USSION YEARLY AGES 40-75 1984 PNEUMOCOCCAL ADULT 65 YRS AN D OVER (1 of 2 - PCV13) 2009 *DEPRESSION SCREENINGTAMI FOR PTS 18 AND OVER 09/08/2014 *COLORECTAL CANCER SCREENING (COLONOSCOPY 10 YEARS; SIGMOIDOSCOPY 5 YEARS; COLOGUARD 3 YEARS; FOBT 1 YEAR),AGES 50-75 06/13/2017 Influenza Vaccine (FLU shot) (#1) 2018 LIPID SCREEN EVERY 5 YRS-WOM EN AGE 45-75 09/05/2019 09/04/2014 DIABETES SCREEN EVERY 3 YRS- AGE 45 AND ABOVE 10/23/2020 10/23/2017, 05/03/2017, 05/02/2017, Additional history exists DXA-SCREENING EVERY 7 YRS- E SMARTSET# 3348 TO ORDER 12/26/2021 12/26/2014 as of this encounter Implants Implanted Type Area Moving Worker Device Identifier Expiration Date Model / Serial / Lot Dbx 10cc [id number] - [id number] - [id number] Implanted:Qty : 1 on 01/11/2015 by Colin Krause MD Tissue - Human N/A: Spine Lumbar MUSCULOSKELETAL TRANSPLANT FND 08/18/2016 [id number] / [id number] / Dbx 10cc 008819 - [id number] - [id number] Implanted:Qty : 1 on 01/11/2015 by Colin Krause MD Tissue - Human N/A: Spine Lumbar MUSCULOSKELETAL TRANSPLANT FND 08/18/2016 [id number] / [id number] / Chip Cancellous 30cc [id number] - [id number] Implanted:Qty : 1 on 04/30/2017 by Colin Krause MD Tissue - Human N/A: Spine Lumbar MUSCULOSKELETAL TRANSPLANT FND 01/20/2020 [id number] / / Chip Cancellous 90cc [id number] - [id number] Implanted:Qty : 1 on 04/30/2017 by Colin Krause MD Tissue - Human N/A: Spine Lumbar MUSCULOSKELETAL TRANSPLANT FND 01/29/2018 [id number] / / [id number] Straight [id number] Cocr - [id number] Implanted:Qty : 2 on 01/11/2015 by Colin Krause MD N/A: Spine Lumbar JNJ : DEPUY SPINE [id number] / / Screw 6x40 Poly Si [id number] - [id number] Implanted:Qty : 1 on 01/11/2015 by Colin Krause MD N/A: Spine Lumbar JNJ : ETHICON CARDIOVATIONS [id number] / / Screw 6x40 Ti Uni [id number] - [id number] Implanted:Qty : 8 on 01/11/2015 by Colin Krause MD N/A: Spine Lumbar JNJ : ETHICON CARDIOVATIONS [id number] / / Screw 5x40 Ti Uni [id number] - [id number] Implanted:Qty : 2 on 01/11/2015 by Colin Krause MD N/A: Spine Lumbar JNJ : ETHICON CARDIOVATIONS [id number] / / Screw 6x45 Ti Uni [id number] - [id number] Implanted:Qty : 6 on 01/11/2015 by Colin Kruase MD N/A: Spine Lumbar JNJ : ETHICON CARDIOVATIONS [id number] / / Expedium Ti Sfx 5.5 Lat A2 - [id number] Implanted:Qty : 1 on 01/11/2015 by Colin Krause MD N/A: Spine Lumbar JNJ : ETHICON CARDIOVATIONS [id number] / / Screw Implanted:Qty : 2 on 04/30/2017 by Colin Krause MD N/A: Spine Lumbar SYNTHES : DEPUY [id number] / / Screw Implanted:Qty : 2 on 04/30/2017 by Colin Krause MD N/A: Spine Lumbar SYNTHES : DEPUY [id number] / / Cage Implanted:Qty : 4 on 04/30/2017 by Colin Krause MD N/A: Spine Lumbar SYNTHES : DEPUY [id number] / / Connector 5.5 Du [id number] - [id number] Implanted:Qty : 4 on 04/30/2017 by Colin Krause MD N/A: Spine Lumbar JNJ : ETHICON CARDIOVATIONS [id number] / / Uriel 120mm [id number] - [id number] Implanted:Qty : 2 on 04/30/2017 by Colin Krause MD N/A: Spine Lumbar JNJ : ETHICON CARDIOVATIONS [id number] / / Screw Set Sng Inner [id number] - [id number] Implanted:Qty : 6 on 04/30/2017 by Colin Krause MD N/A: Spine Lumbar JNJ : ETHICON CARDIOVATIONS [id number] / / Expedium Ti Sfx 5.5 Lat A6 - [id number] Implanted:Qty : 2 on 04/30/2017 by Colin Krause MD N/A: Spine Lumbar JNJ : ETHICON CARDIOVATIONS [id number] / / Screw 7x45 Ti Uni [id number] - [id number] Implanted:Qty : 4 on 01/11/2015 by Colin Krause MD Explanted:Qty : 2 on 04/30/2017 N/A: Spine Lumbar JNJ : DEPUY SPINE [id number] / / Screw Set Sng Inner [id number] - [id number] Implanted:Qty : 20 on 01/11/2015 by Colin Krause MD Explanted:Qty : 4 on 04/30/2017 N/A: Spine Lumbar JNJ : DEPUY SPINE [id number] / / Graft Infuse Bone Lg [id number] - [id number] Implanted:Qty : 1 on 04/30/2017 by Colin Krause MD N/A: Spine Lumbar [employer] : NEURO CARE 06/10/2018 [id number] / / as of this encounter Results * PATHOLOGY SCANNED RESULT (10/20/2017) in this encounter
--- OUTSIDE RECORDS SUMMARY | 2023-02-08 02:13 | External Medical Summary | Summary of Care ---
Author Name Unknown Organization [place] [address] Care Team Providers Care Last Code Striper Name Role Phone Casey Rodgers MD Primary Care Provider [phone] Encounter Details Date Type Department Care Team Description 09/16/2020 Orders Only Outcomes Research Department [address], [place] [id number] Robbie Mcgee CHRA MyCode Research Other*[id number] Allergies Active Allergy Reactions Severity Noted Date Comments Hydrochlorothiazide Other (Please comment) 02/26/2017 Caused pancreatitis Metronidazole 02/09/2017 Pill causes severe diarrhea documented as of this encounter (statuses as of 09/16/2020) Medications Medication Sig Dispensed Refills Start Date [...] as needed. 30 Tab 11 02/26/2017 Active HYDROcodone-acetaminop hen 5-325 mg per tab 5-325 MG per tablet Take 1 Tab by mouth every 6 hours as needed for Pain, Mild. 90 Tab 0 07/20/2017 Active Calcium Carbonate-Vitamin D (CALCIUM 500 + D) 500-125 MG-UNIT TABS Take by mouth. 0 Active Aspirin-Acetaminophen- Caffeine (EXCEDRIN MIGRAINE) 250-250-65 MG per tablet Take 1 Tab by mouth every 6 hours as needed for Pain. 0 Active promethazine (PHENERGAN) 25 MG Tablet Take 25 mg by mouth every 6 hours as needed for Nausea. 0 Active omeprazole (PRILOSEC) 20 MG CPDR Take 20 mg by mouth daily. 0 Active documented as of this encounter (statuses as of 09/16/2020) Active Problems Problem Noted Date S/P laminectomy with spinal fusion 06/01 Postoperative anemia due to acute blood loss 05/02/2017 HTN (hypertension) 05/02/2017 Tobacco abuse 05/02/2017 Spinal stenosis 05/02/2017 GERD (gastroesophageal reflux disease) 1 07/03/2016 SIRS (systemic inflammatory response syn drome) 05/02/2017 Thrombocytopenia 05/02/2017 Bilateral low back pain without sciatica 05/17/2015 documented as of this encounter (statuses as of 09/16/2020) Social History Tobacco Use Types Packs/Day Years Used Date Current Every Day Smoker Cigarettes 0.25 50 Started: 09/04/1965 Smokeless Tobacco: Never Used Alcohol Use Drinks/Week oz/Week Comments No Sex Assigned at Date Recorded Not on file documented as of this [...] as of this encounter Plan of Treatment Scheduled Orders Name Type Priority Associated Diagnoses Orde r Schedule MYCODE INITIAL ADULT Lab Routine MyCode Research Other*[id number] Expected: 09/16/2020 (Approximate), Expires: 10/06/2021 Health Maintenance Due Date Last Done Comments Pneumococcal Vaccine: 65+ Years (1 of 2 - PPSV23) 1950 DTaP,Tdap,and Td Vaccines (1 - Tdap) 12/21/1963 Zoster Vaccines (1 of 2) 1994 *DEPRESSION SCREENING,ANNUAL FOR PTS 12 AND OVER 09/08/2014 *BASIC METABOLIC PANEL (BMP) FOR HTN YEARLY 12/25/2018 DIABETES SCREEN EVERY 3 YRS-AGE 45 AND ABOVE 10/23/2020 10/23/2017, 05/03/2017, 05/02/2017, Additional history exists Influenza Vaccine (FLU shot) (Season Ended) 2021 Dexa Scan 12/26/2021 12/26/2014 MENINGOCOCCAL (MENACTRA/MENVEO) Aged Out No longer eligible based on patient's age to complete this topic documented as of this encounter Implants Implanted Type Area Single End Sewer Device Identifier Shelf Expiration Date Model / Serial / Lot Dbx 10 [id number] - [id number] - [id number] Implanted:Qty : 1 on 01/11/2015 by Colin Krause MD at OR [facility] Tissue - Human N/A: Spine Lumbar MUSCULOSKELETAL TRANSPLANT FND 08/18/2016 340046 / [id number] / Dbx [facility] 342515 - [id number] - [id number] Implanted:Qty : 1 on 01/11/2015 by Colin Krause MD at OR [facility] [place] Tissue - Human N/A: Spine Lumbar MUSCULOSKELETAL TRANSPLANT FND 08/18/2016 562194 / [id number] / Chip Cancellous 30cc 837657 - [id number] Implanted:Qty : 1 on 04/30/2017 by Colin Krause MD at OR [facility] Tissue - Human N/A: Spine Lumbar MUSCULOSKELETAL TRANSPLANT FND 01/20/2020 [id number] / / Chip Cancellous 90cc [id number] - [id number] Implanted:Qty : 1 on 04/30/2017 by Colin Krause MD at [facility] Tissue - Human N/A: Spine Lumbar MUSCULOSKELETAL TRANSPLANT FND 01/29/2018 [id number] / / Viper2 Straight [id number] Cocr - [id number] Implanted:Qty : 2 on 01/11/2015 by Colin Krause MD at OR [facility] N/A: Spine Lumbar JNJ : DEPUY SPINE [id number] / / Screw 6x40 Poly Si [id number] - [id number] Implanted:Qty : 1 on 01/11/2015 by Colin Krause MD at [facility] N/A: Spine Lumbar JNJ : ETHICON CARDIOVATIONS [id number] / / Screw 6x40 Ti Uni [id number] - [id number] Implanted:Qty : 8 on 01/11/2015 by Colin Krause MD at [place] [facility] N/A: Spine Lumbar JNJ : ETHICON CARDIOVATIONS [id number] / / Screw 5x40 Ti Uni [id number] - [id number] Implanted:Qty : 2 on 01/11/2015 by Colin Krause MD at [place] [facility] N/A: Spine Lumbar JNJ : ETHICON CARDIOVATIONS [id number] / / Screw 6x45 Ti Uni [id number] - [id number] Implanted:Qty : 6 on 01/11/2015 by Colin Krause MD at [place] [facility] N/A: Spine Lumbar JNJ : ETHICON CARDIOVATIONS [id number] / / Expedium Ti Sfx 5.5 Lat A2 - [id number] Implanted:Qty : 1 on 01/11/2015 by Colin Krause MD at [place] [facility] N/A: Spine Lumbar JNJ : ETHICON CARDIOVATIONS [id number] / / Screw Implanted:Qty : 2 on 04/30/2017 by Colin Krause MD at [place] [facility] N/A: Spine Lumbar SYNTHES : DEPUY [id number] / / Screw Implanted:Qty : 2 on 04/30/2017 by Colin Krause MD at OR [facility] N/A: Spine Lumbar SYNTHES : DEPUY / / Cage Implanted:Qty : 4 on 04/30/2017 by Colin Krause MD at [place] [facility] N/A: Spine Lumbar SYNTHES : DEPUY 187 / / Connector 5.5 Du [id number] - [id number] Implanted:Qty : 4 on 04/30/2017 by Colin Krause MD at [facility] N/A: Spine Lumbar JNJ : ETHICON CARDIOVATIONS [id number] / / Uriel 120mm [id number] - [id number] Implanted:Qty : 2 on 04/30/2017 by Colin Krause MD at [facility] N/A: Spine Lumbar JNJ : ETHICON CARDIOVATIONS [id number] / / Screw Set Sng Inner [id number] - [id number] Implanted:Qty : 6 on 04/30/2017 by Colin Krause MD at [facility] N/A: Spine Lumbar JNJ : ETHICON CARDIOVATIONS [id number] / / Expedium Ti Sfx 5.5 Lat A6 - [id number] Implanted:Qty : 2 on 04/30/2017 by Colin Krause MD at [facility] N/A: Spine Lumbar JNJ : ETHICON CARDIOVATIONS [id number] / / Screw 7x45 Ti Uni [id number] - [id number] Implanted:Qty : 4 on 01/11/2015 by Colin Krause MD at [place] [facility] Explanted:Qty : 2 on 04/30/2017 at [place] [facility] N/A: Spine Lumbar JNJ : DEPUY SPINE [id number] / / Screw Set Sng Inner [id number] - [id number] Implanted:Qty : 20 on 01/11/2015 by Colin Krause MD at [facility] Explanted:Qty : 4 on 04/30/2017 at [place] [facility] N/A: Spine Lumbar JNJ : DEPUY SPINE [id number] / / Graft Infuse Bone Lg [id number] - [id number] Implanted:Qty : 1 on 04/30/2017 by Colin Krause MD at [facility] N/A: Spine Lumbar [employer] : NEURO CARE 06/10/2018 [id number] / / documented as of this encounter Visit Diagnoses Diagnosis MyCode Research Other*[id number] documented in this encounter Advance Directives Documents on File Type Date Recorded 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 No
--- OUTSIDE RECORDS SUMMARY | 2023-02-08 02:13 | External Medical Summary | Summary of Care ---
Author Name Unknown Organization [place] [address] Care Team Providers Care Health And Wellness Coordinator Name Role Phone Casey Rodgers MD Primary Care Provider [phone] Reason for Visit * Reason Onset Date Comments Med Request 03/25/2022 medication change 03/25/2022 Encounter Details Date Type Department Care Team Description 03/25/2022 Telephone Cardiology, [facility] [address] [place] [address] Jadiel Lockhart MD [address] [place] [address] Med Request; medication change Allergies Active Allergy [...] mg) by mouth at bedtime. 0 Active Ctfllibyrn-FFVF-U affeine 50-325-40 MG Oral Tablet (Fioricet) Take [...] before bedtime. 180 Tablet 3 03/26/2022 Active dilTIAZem HCl ER Beads 180 MG Oral Capsule Extended Release 24 Hour Take 1 Capsule by mouth in the morning. 90 Capsule 3 05/26/2022 Active Apixaban 5 MG Oral Tablet (Eliquis) [...] encounter Miscellaneous Notes * Addendum Note - Jadiel Lockhart MD - 05/26/2022 1:46 PM ESTAddended by: JADIEL LOCKHART on: 05/26/2022 01:46 PM Modules accepted: Orders * Addendum Note - Jessica Marion RPh - 05/26/2022 1:05 PM ESTAddended by: JESSICA MARION on: 05/26/2022 01:05 PM Modules accepted: Orders * Telephone Encounter - Jessica Marion [facility] - 05/26/2022 1:01 PM EST Pt requesting [...] Thank you, Jessica Marion, PharmD Clinical Pharmacist [facility] [phone] 05/26/2022, 1:04 PM * Telephone Encounter - [...] it to be continued Preferred pharmacy: [facility] #[id number]- [place] Patient unwilling to speak with pharmacist at this time. Routing to pharmacist pool to advise. Thank you, Sally Pérez CPhT Electrical Foreman [facility] 05/26/2022, 11:24 AM * Telephone Encounter - YONNY Burrows - 03/25/2022 9:42 AM EST Pt called these medications pended were given to pt in the ER She needs Refills Please refill Thank you YONNY Burrows documented in this encounter Plan of Treatment Upcoming Encounters Date Type Specialty Care Team Description 06/15/2022 Office Visit Cardiology Jadiel Lockhart MD [address] [facility] [place] [address] Health Maintenance Due Date Last Done Comments Pneumococcal Vaccine: 65+ Years (1 - PCV) 1950 Depression Screening, Annual for Pts 12 and Over 1956 Alb / Creat Ratio 1962 Hepatitis C Screening 1962 DTaP,Tdap,and Td Vaccines (1 - Tdap) 12/21/1963 LUNG CANCER SCREENING - USE SMARTSET 31834 1994 Zoster Vaccines (1 of 2) 1994 [...] this encounter Medical Devices Implanted Type Area Sediment Remediation Consultant Device Identifier Shelf Expiration Date Model / Serial / Lot Dbx 10cc [id number] - [id number] - [id number] Implanted:Qty : 1 on 01/11/2015 [place] Krause [place] [facility] [place] - Human N/A: Spine Lumbar MUSCULOSKELETAL TRANSPLANT FND 08/18/2016 192374 / [id number] / Chip Cancellous 90cc 168340 - [id number] Implanted:Qty : 1 on 04/30/2017 by Colin Krause MD [place] [facility] [place] - Human N/A: Spine Lumbar MUSCULOSKELETAL TRANSPLANT FND 01/29/2018 [id number] / / Expedium Ti Sfx 5.5 Lat A2 - [id number] Implanted:Qty : 1 on 01/11/2015 by Colin Krause MD [place] [facility] [place] N/A: Spine Lumbar JNJ : ETHICON CARDIOVATIONS [id number] / / Expedium Ti Sfx 5.5 Lat A6 - [id number] Implanted:Qty : 2 on 04/30/2017 by Colin Krause MD [place] [facility] [place] N/A: Spine Lumbar JNJ : ETHICON CARDIOVATIONS [id number] / / documented as of this encounter [...] the patient have Health Care Power of Syrup Blender? No Care Teams Health And Wellness Coordinator Relationship Specialty Start Date End Date Casey Rodgers MD [address] [place] [address] PCP - General Family Medicine 09/04/14 documented as of this encounter
--- OUTSIDE RECORDS SUMMARY | 2023-02-08 02:13 | External Medical Summary | Summary of Care ---
Author Name Unknown Organization [place] [address] Care Team Providers Care Emergency Service Worker Name Role Phone Casey Rodgers MD Primary Care Provider [phone] Reason for Visit * Reason Onset Date Comments Med Request 03/25/2022 Encounter Details Date Type Department Care Team Description 03/25/2022 Telephone Cardiology, [facility] [address] [place] [address] Sterling Lockhart MD [address] [place] [address] Med Request Allergies Active Allergy Reactions Severity Noted Date Comments Chlorhexidine Itching 09/10/2020 Hydrochlorothiazide Other (Please comment) 02/26/2017 Caused pancreatitis Metronidazole 02/09/2017 Pill causes severe diarrhea Ondansetron Other (Please comment) High 03/04/2018 TAYLOR documented as of this encounter (statuses as of 03/26/2022) Medications Medication Sig Dispensed Refills Start Date [...] mg) by mouth at bedtime. 0 Active Esceluuemv-PJCO-Q affeine 50-325-40 MG Oral Tablet (Fioricet) Take [...] as of this encounter (statuses as of 03/26/2022) Active Problems Problem Noted Date S/P laminectomy with spinal fusion 06/01 Postoperative anemia due to acute blood loss 05/02/2017 HTN (hypertension) 05/02/2017 Tobacco abuse 05/02/2017 Spinal stenosis 05/02/2017 GERD (gastroesophageal reflux disease) 1 07/03/2016 SIRS (systemic inflammatory response syn drome) 05/02/2017 Thrombocytopenia 05/02/2017 Bilateral low back pain without sciatica 05/17/2015 documented as of this encounter (statuses as of 03/26/2022) Social History Tobacco Use Types Packs/Day Years [...] encounter Miscellaneous Notes * Telephone Encounter - YONNY Burrows - 03/25/2022 9:42 AM EST Pt called these medications pended were given to pt in the ER She needs Refills Please refill Thank you YONNY Burrows documented in this encounter Plan of Treatment Upcoming Encounters Date Type Specialty Care Team Description 04/21/2022 Cardiac Studies Cardiac Studies 06/15/2022 Office Visit Cardiology Sterling Lockhart MD [address] [place] [address] Health Maintenance Due Date Last Done Comments Hepatitis B (1 of 3 - 3-dose series) 1944 COVID-19 Vaccine (#1) 06/22/1945 Pneumococcal Vaccine: 65+ Years (1 - PCV) 1950 Depression Screening, Annual for Pts 12 and Over 1956 Alb / Creat Ratio 1962 Hepatitis C Screening 1962 DTaP,Tdap,and Td Vaccines (1 - Tdap) 12/21/1963 LUNG CANCER SCREENING - USE SMARTSET 70902 1994 Zoster Vaccines (1 of 2) 1994 DXA Scan 12/26/2021 12/26/2014 Influenza Vaccine (FLU shot) (#1) 2022 GFR - Renal Function 03/20/2023 03/20/2022, 10/23/2017, 05/03/2017, Additional history exists GARDASIL-HPV IMMUNIZATION SERIES Aged Out No longer eligible based on patient's age to complete this topic MENINGOCOCCAL (MENACTRA/MENVEO) Aged Out No longer eligible based on patient's age to complete this topic documented as of this encounter Medical Devices Implanted Type Area Barrel Rib Matting Machine Operator Device Identifier Shelf Expiration Date Model / Serial / Lot Dbx 10cc 870058 - [id number] - [id number] Implanted:Qty : 1 on 01/11/2015 by Colin Krause MD at [place] [facility] [place] Tissue - Human N/A: Spine Lumbar MUSCULOSKELETAL TRANSPLANT FND 08/18/2016 490338 / [id number] / Chip Cancellous 90cc 451648 - [id number] Implanted:Qty : 1 on 04/30/2017 by Colin Krause MD at [place] [facility] [place] Tissue - Human N/A: Spine Lumbar MUSCULOSKELETAL TRANSPLANT FND 01/29/2018 [id number] / / Expedium Ti Sfx 5.5 Lat A2 - [id number] Implanted:Qty : 1 on 01/11/2015 by Colin Krause MD at [place] [facility] [place] N/A: Spine Lumbar JNJ : ETHICON CARDIOVATIONS [id number] / / Expedium Ti Sfx 5.5 Lat A6 - [id number] Implanted:Qty : 2 on 04/30/2017 by Colin Krause MD at [place] [facility] [place] N/A: Spine Lumbar JNJ : ETHICON CARDIOVATIONS [id number] / / documented as of this encounter [...] the patient have Health Care Power of Insurance Territory Manager? No Care Teams Emergency Service Worker Relationship Specialty Start Date End Date Casey Rodgers MD [address] [place] [address] PCP - General Family Medicine 09/04/14 documented as of this encounter
--- OUTSIDE RECORDS SUMMARY | 2023-02-08 02:13 | External Medical Summary | Summary of Care ---
Author Name Unknown Organization [place] [address] Care Team Providers Care Outpatient Admitting Clerk Name Role Phone Karissa Rodgers MD Primary Care Provider [phone] Reason for Referral * Precert (Within 10 days (routine)) - Authorized Specialty Diagnoses / Procedures Referred By Contac t Referred To Contact Cardiac Studies Diagnoses Atrial fibrillation with RVR (HCC) Procedures ECHO, COMPLETE (2D), TRANS-THORACIC Sterling Lockhart MD [address] [place] [id number] Referral ID Status Reason Start Date Expiration Date V isits Requested Visits Authorized [id number] Authorized Precert 04/19/2022 999 [id number] Reason for Visit * Reason Comments NEW PATIENT Last seen 11/2018, [facility] ED 03/04 Encounter Details Date Type Department Care Team Description 03/20/2022 Office Visit Cardiology, [facility] [address] [place] [id number] Sterling Lockhart MD [address] [place] [address] Atrial fibrillation with RVR (HCC)* Allergies Active Allergy Reactions Severity Noted Date Comments Chlorhexidine Itching 09/10/2020 Hydrochlorothiazide Other (Please comment) 02/26/2017 Caused pancreatitis Metronidazole 02/09/2017 Pill causes severe diarrhea Ondansetron Other (Please comment) High 03/04/2018 TAYLOR documented as of this encounter (statuses as of 03/20/2022) Medications Medication Sig Dispensed Refills Start Date [...] 20 mg by mouth daily. 0 Active Apixaban 5 MG Oral Tablet (Eliquis) Take 1 Tablet (5 mg) by mouth in the morning and 1 Tablet (5 mg) before bedtime. 0 Active dilTIAZem HCl ER Coated Beads 120 MG Oral Capsule Extended Release 24 Hour (Cardizem CD) Take 1 Capsule (120 mg) by mouth in the morning. 0 03/05/2022 Active Furosemide 40 MG Oral Tablet (Lasix) [...] mg) by mouth at bedtime. 0 Active Alzapglaxb-ZAPG-T affeine 50-325-40 MG Oral Tablet (Fioricet) Take 1 Tablet by mouth 3 times a day as needed. 0 Active Lisinopril 5 MG Oral Tablet (Prinivil) Take 1 Tablet (5 mg) by mouth in the morning. 30 Tablet 5 03/20/2022 Active gabapentin (NEURONTIN) 300 MG CapsuleIndication s:1 tab three times daily and 2 tabs at bedtime Take 600 mg by mouth 4 times a day. Indications: 1 tab three times daily and 2 tabs at bedtime 0 10/29/2015 03/20/2022 Discontinued (Patient preference/d iscontinuati on) pantoprazole (PROTONIX) 40 MG TBEC Take 1 Tab by mouth daily. 12 02/24/2017 03/20/2022 Discontinued (Patient preference/d iscontinuati on) lisinopril (PRINIVIL) 10 MG Tablet Take 1 Tablet (10 mg) by mouth daily as needed for Hypertension. 30 Tab 11 02/26/2017 03/20/2022 Discontinued (Medication/ Dose Changed) documented as of this encounter (statuses as of 03/20/2022) Active Problems Problem Noted Date S/P laminectomy with spinal fusion 06/01 Postoperative anemia due to acute blood loss 05/02/2017 HTN (hypertension) 05/02/2017 Tobacco abuse 05/02/2017 Spinal stenosis 05/02/2017 GERD (gastroesophageal reflux disease) 1 07/03/2016 SIRS (systemic inflammatory response syn drome) 05/02/2017 Thrombocytopenia 05/02/2017 Bilateral low back pain without sciatica 05/17/2015 documented as of this encounter (statuses as of 03/20/2022) Social History Tobacco Use Types Packs/Day Years [...] Sign Reading Time Taken Comments Blood Pressure 134/74 03/20/2022 10:56 AM EST Pulse 60 03/20/2022 10:56 AM EST Temperature 36.1 °C (97 °F) 03/20/2022 10:56 AM EST Respiratory Rate 16 03/20/2022 10:56 AM EST Oxygen Saturation 92% 03/20/2022 10:56 AM EST Inhaled Oxygen Concentration - - Weight 47.7 kg (105 lb 1.6 oz) 03/20/2022 10:56 AM EST Height - - Body Mass Index 20.53 04/30/2017 7:59 AM EST documented in this [...] Progress Notes * Sterling Lockhart MD - 03/20/2022 11:49 AM EST Cardiology Consultation [facility] 03/20/2022 Reason for Consultation: Paroxysmal atrial fibrillation Provider Requesting Consultation: PCP: KARISSA RODGERS [address] [place] [address] [phone] History of Present Illness: Alexia Campos is a 76 year old year old female referred for ongoing issues 1. Paroxysmal atrial fibrillation with acute hospitalization March 04, 2022 with rapid response (1st onset). Chads Vasc 2 score 4 2. Hypertension 3. Mitral insufficiency 4. Chronic tobacco use/chronic obstructive lung disease Patient is referred for ongoing cardiac care. She is accompanied by her daughter Silvana who aids inhistory. Extensive records from hospitalization reviewed Patient notes having developed sudden onset chest pressure pain and sought ER evaluation on 03/04 where she was found to be in atrial fibrillation with rapid response heart rates greater than 160. She was given IV then oral diltiazem with subsequent spontaneous conversion to sinus rhythm. She was begun on anticoagulation with Eliquis. Laboratory studies on presentation were notable for hypokalemia, potassium 2.9 She presents today noting no further chest pain or discomfort. Notes no rapid heartbeats or racing heartbeats. Blood pressures have been trending low at times and patient has been using lisinopril intermittently No fevers chills or unexplained infections. One episode of blood in bowel movement after straining at stool Chronic low-grade cough nonproductive, still smoking Patient very sedentary about home due to chronic back issues Uses furosemide on a p.r.n. basis for lower extremity edema 2 to 3 days per week A Complete Review of Systems is as stated above or negative. Past Medical History: Patient Active Problem List Diagnosis Code • Bilateral low back pain without sciatica M54.50 • Postoperative anemia due to acute blood loss D62 • HTN (hypertension) I10 • Tobacco abuse Z72.0 • Spinal stenosis M48.00 • GERD (gastroesophageal reflux disease) K21.9 • SIRS (systemic inflammatory response syndrome) ([facility]) R65.10 • Thrombocytopenia ([facility]) D69.6 • S/P laminectomy with spinal fusion Z98.1 Past Surgical History: Procedure Laterality Date • LUMBAR SPINE FUSION, POST INTERBODY N/A 04/30/2017 ARTHRODESIS SPINE POSTERIOR INTERBODY WITH LAMINECTOMY LUMBAR performed by Colin Krause MD at [place] [facility] [place] • LUMBAR SPINE FUSION, POSTEROLATERAL N/A 01/11/2015 ARTHRODESIS SPINE POSTERIOR LUMBAR performed by Colin Krause MD at [facility] • LUMBAR SPINE FUSION, POSTEROLATERAL N/A 04/30/2017 ARTHRODESIS SPINE POSTERIOR LUMBAR performed by Colin Krause MD at [place] [facility] [place] • REVISE/REMOVE SPINAL NEURORECEIVER N/A 01/11/2015 REVISION OR REMOVAL IMPLANTED SPINAL NEUROSTIMULATOR performed by Colin Krause MD at [facility] • THORAX SPINE FUSION, POSTEROLATERAL N/A 01/11/2015 ARTHRODESIS SPINE POSTERIOR THORACIC performed by Colin Krause MD at [facility] • TOTAL HYSTERECTOMY Family History: No family history on file. Social History: Social History Socioeconomic History • Marital status: Spouse name: Not on file • Number of children: Not on file • Years of education: Not on file • Highest education level: Not on file Occupational History • Not on file Tobacco Use • Smoking status: Every Day Packs/day: 0.50 Years: 50.00 Pack years: 25.00 Types: Cigarettes Start date: 09/04/1965 • Smokeless tobacco: Never Substance and Sexual Activity • Alcohol use: No • Drug use: No • Sexual activity: Not on file Other Topics Concern • Not on file Social History Narrative • Not on file Social Determinants of Health Financial Resource Strain: Not on file Food Insecurity: Not on file Transportation Needs: Not on file Physical Activity: Not on file Stress: Not on file Social Connections: Not on file Intimate Partner Violence: Not on file Housing Stability: Not on file Allergies: Ondansetron, Chlorhexidine, Hctz [hydrochlorothiazide], and Metronidazole Medications: Current Outpatient Medications Medication Sig Dispense Refill • HYDROcodone-acetaminophen 5-325 mg per tab 5-325 MG per tablet Take 1 Tab by mouth every 6 hours as needed for Pain, Mild. 90 Tab 0 • Calcium Carbonate-Vitamin D 500-125 MG-UNIT Oral Tablet Take by mouth daily. • Rvowbju-Qgnandbynjpgu-Lxpzbkpz 250-250-65 MG Oral Tablet Take 2 Tablets by mouth every 6 hours as needed for Pain. • omeprazole (PRILOSEC) 20 MG CPDR Take 20 mg by mouth daily. • Apixaban 5 MG Oral Tablet (Eliquis) Take 1 Tablet (5 mg) by mouth in the morning and 1 Tablet (5 mg) before bedtime. • dilTIAZem HCl ER Coated Beads 120 MG Oral Capsule Extended Release 24 Hour (Cardizem CD) Take 1Capsule (120 mg) by mouth in the morning. • Furosemide 40 MG Oral Tablet (Lasix) Take 1 Tablet (40 mg) by mouth in the morning. • Centrum Silver 50+Women Oral Tablet Take by mouth daily. • Rizatriptan Benzoate 10 MG Oral Tablet Take 1 Tablet (10 mg) by mouth as needed for Migraine. • traZODone HCl 100 MG Oral Tablet (Desyrel) Take 1 Tablet (100 mg) by mouth at bedtime. • Etnckierzz-WSIA-Vkmotvyh 50-325-40 MG Oral Tablet (Fioricet) Take 1 Tablet by mouth 3 times a day as needed. • Lisinopril 5 MG Oral Tablet (Prinivil) Take 1 Tablet (5 mg) by mouth in the morning. 30 Tablet 5 • promethazine (PHENERGAN) 25 MG Tablet Take 25 mg by mouth every 6 hours as needed for Nausea. (Patient not taking: Reported on 03/20/2022) No current facility-administered medications for this visit. OBJECTIVE/PHYSICAL EXAMINATION: BP 134/74 (BP Site: Left Arm, BP Position: Sitting, BP Cuff Size: Regular) | Pulse 60 | Temp 36.1 °C (97 °F) (Temporal Artery) | Resp 16 | Wt 47.7 kg (105 lb 1.6 oz) | SpO2 92% | BMI 20.53 kg/m² |BSA 1.42 m² General: Thin chronically ill-appearing Age-appropriate in no acute distress Head: normocephalic, no masses, lesions, tenderness or abnormalities Eyes: conjunctiva are pink and non-injected, sclera clear Throat: clear Nares: without discharge Neck: supple, no adenopathy, normal jugular venous pulse, no hepatojugular reflux, no carotid bruits Chest: normal shape and normal respiratory effort Lungs: Diminished breath sounds diffusely with mild rhonchi and forced cough Cardiac Exam: - regular rate & rhythm, less than grade 1/6 systolic murmur at apex, no diastolic murmur, gallop or rub - normal S-1, normal S-2 Abdomen: abdomen soft, non-tender, no abnormal masses, no hepatosplenomegaly, no abdominal bruit, no femoral bruit Musculoskeletal: no gait disturbance, no joint inflammation, no deforming arthritis Extremities: Trace to 1+ pedal edema, no cyanosis, pulses intact 2+/4 Neuro: grossly normal exam Data: EKG March 20, 2022 Normal sinus rhythm with normal tracing at 61 beats per minute Echocardiogram per report preserved LV systolic function, left atrial enlargement, at least moderate mitral insufficiency. IMPRESSION: 76 year old year old female Referred for evaluation after newly observed atrial fibrillation with rapid response. Patient converted to sinus rhythm with IV diltiazem. Episode may have been precipitated by hypokalemia. No recurrences since hospital discharge RECOMMENDATIONS/PLAN: 1. Paroxysmal atrial fibrillation: Continue oral diltiazem, anticoagulation with Eliquis given chads Vasc 2 score of 4. Patient report any worsening bleeding issues 2. Hypertension: Blood pressures are trending lower with the use of diltiazem. Will reduce lisinopril to 5 mg per day 3. Mitral insufficiency: Repeat echocardiogram ordered now beyond acute episode the assess degree of severity, left atrial size 4. Hypokalemia BMP ordered today. Depending renal function and potassium levels will likely add spironolactone at low dose to regimen to maintain potassium and aid in chronic peripheral edema Patient advised to call with any questions or concerns and to report to the ER with any and all emergencies. Disposition: Follow-up 4 to 8 weeks after echocardiogram Sterling Lockhart MD Cardiology, [facility] [address] [place] [id number] I spent a total of Greater than 55 mins (exact time 60 mins) on the date of service in preparation,delivery, and documentation of the care provided to Alexia Campos excluding any time spent in theperformance of separately billed services. documented in this encounter Nursing Notes * Lolis Harley CMA - 03/20/2022 10:57 AM EST Examination Room: 14 Name: Alexia Campos Date of : (1945). Reason for Visit: New patient, hospital f/u Interim Hospitalization(s): [facility] ED 03/04 Problems/Concerns: denies Chest Pain/SOB: denies [facility] [...] Visit Cardiology Sterling Lockhart MD [address] [place] [address] Pending Results Name Type Priority Associated Diagnoses Date /Time BASIC METABOLIC PANEL Lab Routine Atrial fibrillation with RVR (HCC) 03/20/2022 12:06 PM EST Scheduled Orders Name Type Priority Associated Diagnoses Orde r Schedule EKG EKG Routine Atrial fibrillation with RVR (HCC) Ordered: 03/20/2022 ECHO, COMPLETE (2D), TRANS-THORACIC Echocardiology Routine Atrial fibrillation with RVR (HCC) Expected: 04/19/2022 (Approximate), Expires: 04/19/2024 Health Maintenance Due Date Last Done Comments Hepatitis B (1 of 3 - 3-dose series) 1945 COVID-19 Vaccine (#1) 06/22/1945 Pneumococcal Vaccine: 65+ Years (1 - PCV) 1950 Depression Screening, Annual for Pts 12 and Over 1956 Alb / Creat Ratio 1962 Hepatitis C Screening 1962 DTaP,Tdap,and Td Vaccines (1 - Tdap) 12/21/1963 LUNG CANCER SCREENING - USE SMARTSET 92142 1994 Zoster Vaccines (1 of 2) 1994 GFR - Renal Function 10/23/2018 10/23/2017, 05/03/2017, 05/02/2017, Additional history exists DXA Scan 12/26/2021 12/26/2014 Influenza Vaccine (FLU shot) (#1) 2022 GARDASIL-HPV IMMUNIZATION SERIES Aged Out No longer eligible based on patient's age to complete this topic MENINGOCOCCAL (MENACTRA/MENVEO) Aged Out No longer eligible based on patient's age to complete this topic documented as of this encounter Medical Devices Implanted Type Area Book Retailer Device Identifier Shelf Expiration Date Model / Serial / Lot Dbx 10cc [id number] - [id number] - [id number] Implanted:Qty : 1 on 01/11/2015 by Colin Krause MD at [place] [facility] [place] Tissue - Human N/A: Spine Lumbar MUSCULOSKELETAL TRANSPLANT FND 08/18/2016 [id number] / [id number] / Chip Cancellous 90cc [id number] - [id number] Implanted:Qty : 1 on 04/30/2017 by Colin Krause MD at OR [facility] [place] Tissue - Human N/A: Spine Lumbar MUSCULOSKELETAL TRANSPLANT FND 01/29/2018 [id number] / / Expedium Ti Sfx 5.5 Lat A2 - [id number] Implanted:Qty : 1 on 01/11/2015 by Colin Krause MD at [place] [facility] [place] N/A: Spine Lumbar JNJ : [employer] [id number] / / Expedium Ti Sfx 5.5 Lat A6 - [id number] Implanted:Qty : 2 on 04/30/2017 by Colin Kraues MD at [place] [facility] [place] N/A: Spine Lumbar CRYSTAL : [employer] [id number] / / documented as of this encounter Procedures Procedure Name Priority Date/Time Associated Diagnosis Comments DIFFERENTIAL, AUTOMATED Routine 03/20/2022 12:06 PM EST Atrial fibrillation with RVR (HCC) CBC WITH WBC DIFFERENTIAL Routine 03/20/2022 12:06 PM EST Atrial fibrillation with RVR (HCC) CBC Routine 03/20/2022 12:06 PM EST Atrial fibrillation with RVR (HCC) documented in this encounter Results * (ABNORMAL) DIFFERENTIAL, AUTOMATED (03/20/2022 12:06 PM EST) WBC 11.23(H) 4.00 - 10.80 K/uL 03/20/2022 1:03 PM EST [facility] [place] 57-10 Neutrophils % 79.0(H) 40.0 - 75.0 % 03/20/2022 1:03 PM EST [facility] [place] 57-10 Lymphocytes % 14.9(L) 18.0 - 42.0 % 03/20/2022 1:03 PM EST [facility] [place] 57-10 Monocytes % 5.3 1.0 - 11.0 % 03/20/2022 1:03 PM EST [facility] [place] 57-10 Eosinophils % 0.4 0.0 - 6.0 % 03/20/2022 1:03 PM EST [facility] [place] 57-10 Basophils % 0.4 0.0 - 2.0 % 03/20/2022 1:03 PM EST [facility] [place] 57-10 Absolute Neutrophils 8.86(H) 1.80 - 7.70 K/uL 03/20/2022 1:03 PM EST [facility] [place] 57-10 Absolute Lymphocytes 1.67 1.00 - 4.80 K/ul 03/20/2022 1:03 PM EST [facility] [place] 57-10 Absolute Monocytes 0.60 0.00 - 1.10 K/uL 03/20/2022 1:03 PM EST [facility] [place] 57-10 Absolute Eosinophils 0.05 0.00 - 0.70 K/uL 03/20/2022 1:03 PM EST [facility] [place] 57-10 Absolute Basophils 0.05 0.00 - 0.20 K/uL 03/20/2022 1:03 PM EST [facility] [place] 57-10 Blood Venous blood specimen / Unknown Venipuncture / Unknown 03/20/2022 12:06 PM EST 03/20/2022 12:06 PM EST Sterling Lockhart MD LAB BLOOD ORDERABLES [facility] [place] [address] [place] [address] * (ABNORMAL) CBC (03/20/2022 12:06 PM EST) WBC 11.23(H) 4.00 - 10.80 K/uL 03/20/2022 1:03 PM EST [facility] [place] 57-10 RBC 4.41 3.85 - 5.15 M/uL 03/20/2022 1:03 PM EST [facility] [place] 57-10 HGB 14.3 12.0 - 15.3 g/dL 03/20/2022 1:03 PM EST [facility] [place] 57-10 HCT 44.6 36.0 - 45.2 % 03/20/2022 1:03 PM EST [facility] [place] 57-10 MCV 101.1 81.5 - 97.5 fL 03/20/2022 1:03 PM EST [facility] [place] 57-10 MCH 32.4 27.0 - 34.0 pg 03/20/2022 1:03 PM EST [facility] [place] 57-10 MCHC 32.1 32.0 - 36.0 g/dL 03/20/2022 1:03 PM EST [facility] [place] 57-10 RDW 16.7 11.5 - 15.5 % 03/20/2022 1:03 PM EST [facility] [place] 57-10 PLT 188 140 - 400 K/uL 03/20/2022 1:03 PM EST [facility] [place] [place] 57-10 MPV 11.2 6.6 - 11.1 fL 03/20/2022 1:03 PM EST [facility] [place] [place] 57-10 Blood Venous blood specimen / Unknown Venipuncture / Unknown 03/20/2022 12:06 PM EST 03/20/2022 12:06 PM EST Sterling Lockhart MD LAB BLOOD ORDERABLES [facility] [place] 57-10 [address] [place] [address] documented in this encounter Visit Diagnoses Diagnosis Atrial fibrillation with RVR (HCC)- Primary Atrial fibrillation documented in this encounter Advance Directives Latest [...] the patient have Health Care Power of Platform Inspector? No Care Teams Outpatient Admitting Clerk Relationship Specialty Start Date End Date Karissa Rodgers MD [address] [place] [address] PCP - General Family Medicine 09/04/14 documented as of this encounter"
--- OUTSIDE RECORDS SUMMARY | 2023-02-08 02:13 | External Medical Summary | Summary of Care ---
Author Name Unknown Organization [place] [address] Care Team Providers Care Lodging Facilities Attendant Name Role Phone Casey Rodgers MD Primary Care Provider [phone] Encounter Details Date Type Department Care Team Description 03/24/2022 Orders Only Cardiology, [facility] [address] [place] [address] Sterling Lockhart MD [address] [place] [address] Allergies Active Allergy Reactions Severity Noted Date Comments Chlorhexidine Itching 09/10/2020 Hydrochlorothiazide Other (Please comment) 02/26/2017 Caused pancreatitis Metronidazole 02/09/2017 Pill causes severe diarrhea Ondansetron Other (Please comment) High 03/04/2018 TAYLOR documented as of this encounter (statuses as of 03/24/2022) Medications Medication Sig Dispensed Refills Start Date End Date Status HYDROcodone-acetamino phen 5-325 mg per tab 5-325 MG per tablet Take 1 Tab by mouth every 6 hours as needed for Pain, Mild. 90 Tab 0 07/20/2017 Active Calcium Carbonate-Vitamin D 500-125 MG-UNIT Oral Tablet Take by mouth daily. 0 Active Aspirin-Acetaminophen -Caffeine 250-250-65 MG Oral Tablet Take 2 Tablets [...] mg) by mouth at bedtime. 0 Active Hwhccyttfv-PYIU-Khjjz ine 50-325-40 MG Oral Tablet (Fioricet) Take 1 Tablet by mouth 3 times a day as needed. 0 Active Lisinopril 5 MG Oral Tablet (Prinivil) Take 1 Tablet (5 mg) by mouth in the morning. 30 Tablet 5 03/20/2022 Active documented as of this encounter (statuses as of 03/24/2022) Active Problems Problem Noted Date S/P laminectomy with spinal fusion 06/01 Postoperative anemia due to acute blood loss 05/02/2017 HTN (hypertension) 05/02/2017 Tobacco abuse 05/02/2017 Spinal stenosis 05/02/2017 GERD (gastroesophageal reflux disease) 1 07/03/2016 SIRS (systemic inflammatory response syn drome) 05/02/2017 Thrombocytopenia 05/02/2017 Bilateral low back pain without sciatica 05/17/2015 documented as of this encounter (statuses as of 03/24/2022) Social History Tobacco Use Types Packs/Day Years [...] 06/15/2022 Office Visit Cardiology Sterling Lockhart MD [address] [place] [address] [place] [address] Health Maintenance Due Date Last Done Comments Hepatitis B (1 of 3 - 3-dose series) 1945 COVID-19 Vaccine (#1) 06/22/1945 Pneumococcal Vaccine: 65+ Years (1 - PCV) 1950 Depression Screening, Annual for Pts 12 and Over 1956 Alb / Creat Ratio 1962 Hepatitis C Screening 1962 DTaP,Tdap,and Td Vaccines (1 - Tdap) 12/21/1963 LUNG CANCER SCREENING - USE SMARTSET 18326 1994 Zoster Vaccines (1 of 2) 1994 [...] this encounter Medical Devices Implanted Type Area [id number] Engineer Device Identifier Shelf Expiration Date Model / Serial / Lot Dbx 10 [id number] - [id number] - [id number] Implanted:Qty : 1 on 01/11/2015 by Colin Krause MD at OR [facility] [place] Tissue - Human N/A: Spine Lumbar MUSCULOSKELETAL TRANSPLANT FND 08/18/2016 [id number] / [id number] / Chip Cancellous 90cc [id number] - [id number] Implanted:Qty : 1 on 04/30/2017 by Colin Krause MD at OR [facility] [place] Tissue - Human N/A: Spine Lumbar MUSCULOSKELETAL TRANSPLANT FND 01/29/2018 [id number] / / Expedium Ti Sfx 5.5 Lat A2 - [id number] Implanted:Qty : 1 on 01/11/2015 by Colin Krause MD at OR [facility] [place] N/A: Spine Lumbar JNJ : [employer] [id number] / / Expedium Ti Sfx 5.5 Lat A6 - [id number] Implanted:Qty : 2 on 04/30/2017 by Colin Krause MD at OR [facility] [place] N/A: Spine Lumbar JNJ : [employer] [id number] / / documented as of this encounter Procedures Procedure Name Priority Date/Time Associated Diagnosis Comments XR CHEST 1 VIEW Routine 03/04/2022 documented in this encounter Results * XR CHEST 1 VIEW (03/04/2022) Anatomical Region Laterality Modality Chest Other 03/04/2022 History Per Patient RADIOLOGY (RAD GENER AL) documented in this encounter Advance Directives Latest [...] the patient have Health Care Power of Laminating Press Operator? No Care Teams Lodging Facilities Attendant Relationship Specialty Start Date End Date Casey Rodgers MD [address] [place] [address] PCP - General Family Medicine 09/04/14 documented as of this encounter
--- OUTSIDE RECORDS SUMMARY | 2023-02-08 02:13 | External Medical Summary | Summary of Care ---
Author Name Unknown [place] [address] Phone Care Team Providers Care Sap Pi Architect Name Role Phone Casey Rodgers MD Primary Care Provider [phone] Encounter Details Date Type Department Care Team Description 10/23/2017 Scan Encounter Unspecified Department <No scans attached> Allergies Active Allergy Reactions [...] Office Visit Cardiology Sterling Lockhart MD [address] [facility] [place] [address] [phone] Health Maintenance Due Date Last Done Comments [...] EVERY 3 YRS- AGE 45 AND ABOVE 05/03/2020 05/03/2017, 05/02/2017, 05/02/2017, Additional history exists DXA-SCREENING EVERY 7 YRS-US E SMARTSET# 3348 TO ORDER 12/26/2021 12/26/2014 as of this encounter Implants Implanted Type Area Vehicle Monitor Technician Device Identifier Expiration Date Model / Serial / Lot Dbx 10cc 038694 - [id number] - [id number] Implanted:Qty : 1 on 01/11/2015 by Colin Krause MD Tissue - Human N/A: Spine Lumbar MUSCULOSKELETAL TRANSPLANT FND 08/18/2016 470634 / [id number] / Dbx 10 960734 - [id number] - [id number] Implanted:Qty : 1 on 01/11/2015 by Colin Krause MD Tissue - Human N/A: Spine Lumbar MUSCULOSKELETAL TRANSPLANT FND 08/18/2016 355682 / [id number] / Chip Cancellous 30cc [id number] - [id number] Implanted:Qty : 1 on 04/30/2017 by Colin Krause MD Tissue - Human N/A: Spine Lumbar MUSCULOSKELETAL TRANSPLANT FND 01/20/2020 401101 / / Chip Cancellous 90cc [id number] - [id number] Implanted:Qty : 1 on 04/30/2017 by Colin Krause MD Tissue - Human N/A: Spine Lumbar MUSCULOSKELETAL TRANSPLANT FND 01/29/2018 [id number] / / Viper2 Straight [id number] Cocr - [id number] Implanted:Qty : 2 on 01/11/2015 by Colin Krause MD N/A: Spine Lumbar JNJ : DEPUY SPINE [id number] / / Screw 6x40 Poly Si [id number] - [id number] Implanted:Qty : 1 on 01/11/2015 by Colin Krause MD N/A: Spine Lumbar JNJ : ETHICON CARDIOVATIONS [id number] / / Screw 6x40 Ti Uni [id number] - [id number] Implanted:Qty : 8 on 01/11/2015 by Colin Krause MD N/A: Spine Lumbar JNJ : ETHICON CARDIOVATIONS [id number] / / Screw 5x40 Ti Uni [id number] - [id number] Implanted:Qty : 2 on 01/11/2015 by Colin Krause MD N/A: Spine Lumbar JNJ : ETHICON CARDIOVATIONS [id number] / / Screw 6x45 Ti Uni [id number] - [id number] Implanted:Qty : 6 on 01/11/2015 by Colin Krause MD N/A: Spine Lumbar JNJ : ETHICON CARDIOVATIONS [id number] / / Expedium Ti Sfx 5.5 Lat A2 - [id number] Implanted:Qty : 1 on 01/11/2015 by Colin Krause MD N/A: Spine Lumbar JNJ : ETHICON CARDIOVATIONS [id number] / / Screw Implanted:Qty : 2 on 04/30/2017 by Colin Krause MD N/A: Spine Lumbar SYNTHES : DEPUY [id number] / / Screw Implanted:Qty : 2 on 04/30/2017 by Colin Krause MD N/A: Spine Lumbar SYNTHES : DEPUY [id number] / / Cage Implanted:Qty : 4 on 04/30/2017 by Colin Krause MD N/A: Spine Lumbar SYNTHES : DEPUY 1878-21-111 / / Connector 5.5 Du [id number] - [id number] Implanted:Qty : 4 on 04/30/2017 by Colin Krause MD N/A: Spine Lumbar JNJ : ETHICON CARDIOVATIONS [id number] / / Uriel 120mm [id number] - [id number] Implanted:Qty : 2 on 04/30/2017 by Colin Krause MD N/A: Spine Lumbar JNJ : ETHICON CARDIOVATIONS [id number] / / Screw Set Sng Inner [id number] - [id number] Implanted:Qty : 6 on 04/30/2017 by Colin Krause MD N/A: Spine Lumbar JNJ : ETHICON CARDIOVATIONS [id number] / / Expedium Ti Sfx 5.5 Lat A6 - [id number] Implanted:Qty : 2 on 04/30/2017 by Colin Krause MD N/A: Spine Lumbar JNJ : ETHICON CARDIOVATIONS [id number] / / Screw 7x45 Ti Uni [id number] - [id number] Implanted:Qty : 4 on 01/11/2015 by Colin Krause MD Explanted:Qty : 2 on 04/30/2017 N/A: Spine Lumbar JNJ : DEPUY SPINE [id number] / / Screw Set Sng Inner [id number] - [id number] Implanted:Qty : 20 on 01/11/2015 by Colin Krause MD Explanted:Qty : 4 on 04/30/2017 N/A: Spine Lumbar JNJ : DEPUY SPINE [id number] / / Graft Infuse Bone Lg [id number] - [id number] Implanted:Qty : 1 on 04/30/2017 by Colin Krause MD N/A: Spine Lumbar [employer]TR[employer] : NEURO CARE 06/10/2018 [id number] / / as of this encounter
--- OUTSIDE RECORDS SUMMARY | 2023-02-08 02:13 | External Medical Summary | Summary of Care ---
Author Name Unknown Organization [place] [address] Phone Care Team Providers Care Glove Wrapper Name Role Phone Casey Rodgers MD Primary Care Provider [phone] Encounter Details Date Type Department Care Team Description 12/23/2017 Orders Only Cardiology, [facility] [address] [facility] [place] [address] Sterling Lockhart MD [address] [facility] [place] [address] [phone] Allergies Active Allergy Reactions Severity Noted Date [...] Pain, Mild. 90 Tab 0 07/20/2017 Active LINZESS 145 MCG Capsule Take 1 capsule (145 mcg) by mouth daily on an empty stomach before first meal of the day 5 10/26/2017 Active Calcium Carbonate-Vitamin D (CALCIUM 500 + D) 500-125 MG-UNIT TABS Take by mouth. Active Zmcjvpa-Mksyhtldjqick-E affeine (EXCEDRIN MIGRAINE) 250-250-65 MG per tablet Take 1 Tab by mouth every 6 hours as needed for Pain. Active as of this encounter Active Problems [...] Office Visit Cardiology Sterling Lockhart MD [address] [place] [address] [phone] Pending Results Name Priority Associated Diagnoses Date/Ti me CHEMISTRY-OUTSIDE Routine 10/23/2017 12:00 AM EDT Health Maintenance Due Date Last Done Comments DTaP,Tdap,and Td Vaccines (1 - Tdap) 12/21/1964 BREAST CANCER SCREENING DISC USSION YEARLY AGES 40-75 1984 PNEUMOCOCCAL ADULT 65 YRS AN D OVER (1 of 2 - PCV13) 2009 *DEPRESSION SCREENING, CLAUDEUA Mine FOR PTS 18 AND OVER 09/08/2014 *COLORECTAL [...] of this encounter Implants Implanted Type Area Seam Feller Device Identifier Expiration Date Model / Serial / Lot Dbx 10 370985 - [id number] - [id number] Implanted:Qty : 1 on 01/11/2015 by Colin Krause MD Tissue - Human N/A: Spine Lumbar MUSCULOSKELETAL TRANSPLANT FND 08/18/2016 770191 / [id number] / Dbx 10 119801 - [id number] - [id number] Implanted:Qty : 1 on 01/11/2015 by Colin Krause MD Tissue - Human N/A: Spine Lumbar MUSCULOSKELETAL TRANSPLANT FND 08/18/2016 403010 / [id number] / Chip Cancellous 30cc 695630 - [id number] Implanted:Qty : 1 on 04/30/2017 by Colin Krause MD Tissue - Human N/A: Spine Lumbar MUSCULOSKELETAL TRANSPLANT FND 01/20/2020 670823 / / Chip Cancellous 90cc 114060 - [id number] Implanted:Qty : 1 on 04/30/2017 by Colin Krause MD Tissue - Human N/A: Spine Lumbar MUSCULOSKELETAL TRANSPLANT FND 01/29/2018 841219 / / Viper2 Straight [id number] Cocr - [id number] Implanted:Qty : 2 on 01/11/2015 by Colin Krause MD N/A: Spine Lumbar JNJ : DEPUY SPINE [id number] / / Screw 6x40 Poly Si [id number] - [id number] Implanted:Qty : 1 on 01/11/2015 by Colin Krause MD N/A: Spine Lumbar JNJ : ETHICON CARDIOVATIONS [id number] / / Screw 6x40 Ti Uni [id number] - [id number] Implanted:Qty : 8 on 01/11/2015 by Colin Krause MD N/A: Spine Lumbar JNJ : ETHICON CARDIOVATIONS [id number] / / Screw 5x40 Ti Uni [id number] - [id number] Implanted:Qty : 2 on 01/11/2015 by Colin Krause MD N/A: Spine Lumbar JNJ : ETHICON CARDIOVATIONS [id number] / / Screw 6x45 Ti Uni [id number] - [id number] Implanted:Qty : 6 on 01/11/2015 by Colin Krause MD N/A: Spine Lumbar JNJ : ETHICON CARDIOVATIONS [id number] / / Expedium Ti Sfx 5.5 Lat A2 - [id number] Implanted:Qty : 1 on 01/11/2015 by Colin Krause MD N/A: Spine Lumbar JNJ : ETHICON CARDIOVATIONS [id number] / / Screw Implanted:Qty : 2 on 04/30/2017 by Colin Krause MD N/A: Spine Lumbar SYNTHES : DEPUY [id number] / / Screw Implanted:Qty : 2 on 04/30/2017 by Colin Krause MD N/A: Spine Lumbar SYNTHES : DEPUY / / Cage Implanted:Qty : 4 on 04/30/2017 by Colin Krause MD N/A: Spine Lumbar SYNTHES : DEPUY 1878-21-111 / / Connector 5.5 Du [id number] - [id number] Implanted:Qty : 4 on 04/30/2017 by Colin Krause MD N/A: Spine Lumbar JNJ : ETHICON CARDIOVATIONS [id number] / / Uriel 120mm [id number] - [id number] Implanted:Qty : 2 on 04/30/2017 by Colin Krause MD N/A: Spine Lumbar JNJ : ETHICON CARDIOVATIONS [id number] / / Screw Set Sng Inner [id number] - [id number] Implanted:Qty : 6 on 04/30/2017 by Colin Krause MD N/A: Spine Lumbar JNJ : ETHICON CARDIOVATIONS 821822469 / / Expedium Ti Sfx 5.5 Lat A6 - [id number] Implanted:Qty : 2 on 04/30/2017 by Colin Krause MD N/A: Spine Lumbar JNJ : ETHICON CARDIOVATIONS [id number] / / Screw 7x45 Ti Uni [id number] - [id number] Implanted:Qty : 4 on 01/11/2015 by Colin Krause MD Explanted:Qty : 2 on 04/30/2017 N/A: Spine Lumbar JNJ : DEPUY SPINE [id number] / / Screw Set Sng Inner [id number] - [id number] Implanted:Qty : 20 on 01/11/2015 by Colin Krause MD Explanted:Qty : 4 on 04/30/2017 N/A: Spine Lumbar JNJ : DEPUY SPINE [id number] / / Graft Infuse Bone Lg 1315445 - [id number] Implanted:Qty : 1 on 04/30/2017 by Colin Krause MD N/A: Spine Lumbar [employer] : NEURO CARE 06/10/2018 [id number] / / as of this encounter
--- OUTSIDE RECORDS SUMMARY | 2023-02-08 02:13 | External Medical Summary | Summary of Care ---
Author Name Unknown Organization [place] [address] Care Team Providers Care Counsellors Name Role Phone Casey Rodgers MD Primary Care Provider [phone] Encounter Details Date Type Department Care Team Description 06/13/2018 Orders Only [facility] Department [address] [place], [place] [id number] Jhon Rivera [employer] Other*[id number] Allergies Active Allergy Reactions Severity Noted Date Comments Hydrochlorothiazide Other (Please comment) 02/26/2017 Caused pancreatitis Metronidazole 02/09/2017 Pill causes severe diarrhea documented as of this encounter (statuses as of 06/13/2018) Medications Medication Sig Dispensed Refills Start Date [...] hours as needed for Pain. 0 Active documented as of this encounter (statuses as of 06/13/2018) Active Problems Problem Noted Date S/P laminectomy with spinal fusion 06/01 Postoperative anemia due to acute blood loss 05/02/2017 HTN (hypertension) 05/02/2017 Tobacco abuse 05/02/2017 Spinal stenosis 05/02/2017 GERD (gastroesophageal reflux disease) 1 07/03/2016 SIRS (systemic inflammatory response syn drome) 05/02/2017 Thrombocytopenia 05/02/2017 Bilateral low back pain without sciatica 05/17/2015 documented as of this encounter (statuses as of 06/13/2018) Social History Tobacco Use Types Packs/Day Years Used Date Current Every Day Smoker Cigarettes 0.25 50 Started: 09/04/1965 Smokeless Tobacco: Never Used Alcohol Use Drinks/Week oz/Week Comments No Sex Assigned at Date Recorded Not on file Job Start Date Occupation Industry Not on file Not on file Not on file Travel History Travel Start Travel End documented as of this encounter Functional Status [...] Office Visit Cardiology Sterling Lockhart MD [address] [place] [address] [phone] Scheduled Tests Name Priority Associated Diagnoses Order S chedule MYCODE INITIAL ADULT Routine [employer] Other*[id number] Expected: 06/13/2018 (Approximate), Expires: 07/03/2019 Health Maintenance Due Date Last Done Comments [...] 50-75 06/13/2017 Influenza Vaccine (FLU shot) (#1) 2017 LIPID SCREEN EVERY 5 YRS-WOMEN AGE 45-75 09/05/2019 09/04/2014 DIABETES SCREEN EVERY 3 YRS-AGE 45 AND ABOVE 10/23/2020 10/23/2017, 05/03/2017, 05/02/2017, Additional history exists DXA-SCREENING EVERY 7 YRS-USE SMARTSET# 3348 TO ORDER 12/26/2021 12/26/2014 MENINGOCOCCAL (MENACTRA) Aged Out No longer eligible based on patient's age to complete this topic documented as of this encounter Implants Implanted Type Area Shoe Reconditioner Device Identifier Shelf Expiration Date Model / Serial / Lot Dbx 10cc 090339 - [id number] - [id number] Implanted:Qty : 1 on 01/11/2015 by Colin rKause MD Tissue - Human N/A: Spine Lumbar MUSCULOSKELETAL TRANSPLANT FND 08/18/2016 358046 / [id number] / Dbx 10cc 100324 - [id number] - [id number] Implanted:Qty : 1 on 01/11/2015 by Colin Krause MD Tissue - Human N/A: Spine Lumbar MUSCULOSKELETAL TRANSPLANT FND 08/18/2016 941232 / [id number] / Chip Cancellous 30cc 973607 - [id number] Implanted:Qty : 1 on 04/30/2017 by Colin Krause MD Tissue - Human N/A: Spine Lumbar MUSCULOSKELETAL TRANSPLANT FND 01/20/2020 509160 / / Chip Cancellous 90cc 251753 - [id number] Implanted:Qty : 1 on 04/30/2017 by Colin Krause MD Tissue - Human N/A: Spine Lumbar MUSCULOSKELETAL TRANSPLANT FND 01/29/2018 124917 / / Viper2 Straight [id number] Cocr - [id number] Implanted:Qty : 2 on 01/11/2015 by Colin Krause MD N/A: Spine Lumbar JNJ : DEPUY SPINE [id number] / / Screw 6x40 Poly Si [id number] - [id number] Implanted:Qty : 1 on 01/11/2015 by Colin Krause MD N/A: Spine Lumbar JNJ : ETHICON CARDIOVATIONS [id number] / / Screw 6x40 Ti Uni [id number] - [id number] Implanted:Qty : 8 on 01/11/2015 by Colin Krause MD N/A: Spine Lumbar JNJ : ETHICON CARDIOVATIONS [id number] / / Screw 5x40 Ti Uni [id number] - [id number] Implanted:Qty : 2 on 01/11/2015 by Colin Krause MD N/A: Spine Lumbar JNJ : ETHICON CARDIOVATIONS [id number] / / Screw 6x45 Ti Uni [id number] - [id number] Implanted:Qty : 6 on 01/11/2015 by Colin Krause MD N/A: Spine Lumbar JNJ : ETHICON CARDIOVATIONS [id number] / / Expedium Ti Sfx 5.5 Lat A2 - [id number] Implanted:Qty : 1 on 01/11/2015 by Colin Krause MD N/A: Spine Lumbar JNJ : ETHICON CARDIOVATIONS [id number] / / Screw Implanted:Qty : 2 on 04/30/2017 by Colin Krause MD N/A: Spine Lumbar SYNTHES : DEPUY 1797-77144 / / Screw Implanted:Qty : 2 on 04/30/2017 by Colin Krause MD N/A: Spine Lumbar SYNTHES : DEPUY 1797 / / Cage Implanted:Qty : 4 on 04/30/2017 by Colin Krause MD N/A: Spine Lumbar SYNTHES : DEPUY 1878-21-111 / / Connector 5.5 Du [id number] - [id number] Implanted:Qty : 4 on 04/30/2017 by Colin Krause MD N/A: Spine Lumbar JNJ : ETHICON CARDIOVATIONS [id number] / / Uriel 120mm [id number] - [id number] Implanted:Qty : 2 on 04/30/2017 by Colin Krause MD N/A: Spine Lumbar JNJ : ETHICON CARDIOVATIONS [id number] / / Screw Set Sng Inner [id number] - [id number] Implanted:Qty : 6 on 04/30/2017 by Colin Krause MD N/A: Spine Lumbar JNJ : ETHICON CARDIOVATIONS [id number] / / Expedium Ti Sfx 5.5 Lat A6 - [id number] Implanted:Qty : 2 on 04/30/2017 by Colin Krause MD N/A: Spine Lumbar JNJ : ETHICON CARDIOVATIONS [id number] / / Screw 7x45 Ti Uni [id number] - [id number] Implanted:Qty : 4 on 01/11/2015 by Colin Krause MD Explanted:Qty : 2 on 04/30/2017 N/A: Spine Lumbar JNJ : DEPUY SPINE [id number] / / Screw Set Sng Inner [id number] - [id number] Implanted:Qty : 20 on 01/11/2015 by Colin Krause MD Explanted:Qty : 4 on 04/30/2017 N/A: Spine Lumbar JNJ : DEPUY SPINE [id number] / / Graft Infuse Bone Lg 1481467 - [id number] Implanted:Qty : 1 on 04/30/2017 by Colin Krause MD N/A: Spine Lumbar [employer] : NEURO CARE 06/10/2018 [id number] / / documented as of this encounter Visit Diagnoses Diagnosis [facility] Other*[id number] documented in this encounter Advance Directives Patient has advance care planning documents, and code status on file. For more information, please contact: [place] [phone] Latest Code Status on File Code Status [...]
--- OUTSIDE RECORDS SUMMARY | 2023-02-08 02:13 | External Medical Summary | Summary of Care ---
Author Name Unknown Organization [place] [address] Care Team Providers Care Salt Cutter Name Role Phone Casey Rodgers MD Primary Care Provider [phone] Reason for Visit * Reason Onset Date Comments Med Request 03/25/2022 medication change 03/25/2022 Encounter Details Date Type Department Care Team Description 03/25/2022 Telephone Cardiology, [facility] [address] [place] [address] Sterling Lockhart MD [address] [place] [address] Med Request; medication change Allergies Active Allergy [...] mg) by mouth at bedtime. 0 Active Cdkprjmrym-YBLX-H affeine 50-325-40 MG Oral Tablet (Fioricet) Take [...] encounter Miscellaneous Notes * Telephone Encounter - Sally Pérez CPhT - 05/26/2022 11:24 AM EST Pt calling in to request a dose change on their diltiazem. Current dose: 120mg once daily Requested dose: 180mg once daily Reason for request: pt stated MD sent in 14 days for her and it is working well for her- she is asking for it to be continued Preferred pharmacy: [facility] [id number]- [place] Patient unwilling to speak with pharmacist at this time. Routing to pharmacist pool to advise. Thank you, Sally Pérez CPhT [facility] 05/26/2022, 11:24 AM * Telephone Encounter - YONNY Burrows - 03/25/2022 9:42 AM EST Pt called these medications pended were given to pt in the ER She needs Refills Please refill Thank you YONNY Burrows documented in this encounter Plan of Treatment Upcoming Encounters Date Type Specialty Care Team Description 06/15/2022 Office Visit Cardiology Sterling Lockhart MD [address] [place] [address] Health Maintenance Due Date Last Done Comments Pneumococcal Vaccine: 65+ Years (1 - PCV) 1950 Depression Screening, Annual for Pts 12 and Over 1956 Alb / Creat Ratio 1962 Hepatitis C Screening 1962 DTaP,Tdap,and Td Vaccines (1 - Tdap) 12/21/1963 LUNG CANCER SCREENING - USE SMARTSET 70401 1994 Zoster Vaccines (1 of 2) 1994 [...] this encounter Medical Devices Implanted Type Area Production Stage Manager Device Identifier Shelf Expiration Date Model / Serial / Lot Dbx 10cc 975978 - [id number] - [id number] Implanted:Qty : 1 on 01/11/2015 by Colin Krause MD at [facility] [place] Tissue - Human N/A: Spine Lumbar MUSCULOSKELETAL TRANSPLANT FND 08/18/2016 499806 / [id number] / Chip Cancellous 90cc 279531 - [id number] Implanted:Qty : 1 on 04/30/2017 by Colin Krause MD at OR [facility] [place] Tissue - Human N/A: Spine Lumbar MUSCULOSKELETAL TRANSPLANT FND 01/29/2018 636833 / / Expedium Ti Sfx 5.5 Lat A2 - [id number] Implanted:Qty : 1 on 01/11/2015 by Colin Krause MD at OR [facility] [place] N/A: Spine Lumbar JNJ : ETHICON CARDIOVATIONS [id number] / / Expedium Ti Sfx 5.5 Lat A6 - [id number] Implanted:Qty : 2 on 04/30/2017 by Colin Krause MD at OR [facility] [place] N/A: Spine Lumbar JNJ : ETHICON CARDIOVATIONS [id number] / / documented as of this encounter [...] the patient have Health Care Power of File System Installer? No Care Teams Salt Cutter Relationship Specialty Start Date End Date Casey Rodgers MD [address] [place] [address] PCP - General Family Medicine 09/04/14 documented as of this encounter
--- OUTSIDE RECORDS SUMMARY | 2023-02-08 02:13 | External Medical Summary | Summary of Care ---
Author Name Unknown Organization [place] [address] Care Team Providers Care Digital Marketing Apprentice Name Role Phone Casey Rodgers MD Primary Care Provider [phone] Encounter Details Date Type Department Care Team Description 08/23/2019 Orders Only Outcomes Research Department [address], [place] [id number] Robbie Mcgee CHRA [facility] Other*[id number] Allergies Active Allergy Reactions Severity Noted Date Comments Hydrochlorothiazide Other (Please comment) 02/26/2017 Caused pancreatitis Metronidazole 02/09/2017 Pill causes severe diarrhea documented as of this encounter (statuses as of 08/23/2019) Medications Medication Sig Dispensed Refills Start Date [...] as of this encounter (statuses as of 08/23/2019) Active Problems Problem Noted Date S/P laminectomy with spinal fusion 06/01 Postoperative anemia due to acute blood loss 05/02/2017 HTN (hypertension) 05/02/2017 Tobacco abuse 05/02/2017 Spinal stenosis 05/02/2017 GERD (gastroesophageal reflux disease) 1 07/03/2016 SIRS (systemic inflammatory response syn drome) 05/02/2017 Thrombocytopenia 05/02/2017 Bilateral low back pain without sciatica 05/17/2015 documented as of this encounter (statuses as of 08/23/2019) Social History Tobacco Use Types Packs/Day Years [...] MYCODE INITIAL ADULT Lab Routine [facility] Research Other*[id number] Expected: 08/23/2019 (Approximate), Expires: 09/11/2020 Health Maintenance Due Date Last Done Comments DTaP,Tdap,and Td Vaccines (1 - Tdap) 12/21/1956 BREAST CANCER SCREENING DISCUSSION YEARLY AGES 40-75 1984 Zoster Vaccines (1 of 2) 1994 Pneumococcal Vaccine: 65+ Years (1 of 2 - PCV13) 2009 *DEPRESSION SCREENING,ANNUAL FOR PTS 12 AND OVER 09/08/2014 *COLORECTAL CANCER SCREENING (COLONOSCOPY 10 YEARS; SIGMOIDOSCOPY 5 YEARS; COLOGUARD 3 YEARS; FOBT 1 YEAR),AGES 50-75 06/13/2017 *BASIC METABOLIC PANEL (BMP) FOR HTN YEARLY 12/25/2018 Influenza Vaccine (FLU shot) (#1) 2019 LIPID SCREEN EVERY 5 YRS-WOMEN AGE 45-75 09/05/2019 09/04/2014 DIABETES SCREEN EVERY 3 YRS-AGE 45 AND ABOVE 10/23/2020 10/23/2017, 05/03/2017, 05/02/2017, Additional history exists DXA-SCREENING EVERY 7 YRS-USE SMARTSET# 3348 TO ORDER 12/26/2021 12/26/2014 MENINGOCOCCAL (MENACTRA/MENVEO) Aged Out No longer eligible based on patient's age to complete this topic documented as of this encounter Implants Implanted Type Area All Source Collection Manager Device Identifier Shelf Expiration Date Model / Serial / Lot Dbx 10cc [id number] - [id number] - [id number] Implanted:Qty : 1 on 01/11/2015 by Colin Krause MD at OR [facility] [place] Tissue - Human N/A: Spine Lumbar MUSCULOSKELETAL TRANSPLANT FND 08/18/2016 [id number] / [id number] / Dbx 10cc [id number] - [id number] - [id number] Implanted:Qty : 1 on 01/11/2015 by Colin Krause MD at OR [facility] [place] Tissue - Human N/A: Spine Lumbar MUSCULOSKELETAL TRANSPLANT FND 08/18/2016 [id number] / [id number] / Chip Cancellous 30cc [id number] - [id number] Implanted:Qty : 1 on 04/30/2017 by Colin Krause MD at OR [facility] [place] Tissue - Human N/A: Spine Lumbar MUSCULOSKELETAL TRANSPLANT FND 01/20/2020 [id number] / / Chip Cancellous 90cc [id number] - [id number] Implanted:Qty : 1 on 04/30/2017 by Colin Krause MD at OR [facility] [place] Tissue - Human N/A: Spine Lumbar MUSCULOSKELETAL TRANSPLANT FND 01/29/2018 [id number] / / [id number] Straight Juh314um Cocr - [id number] Implanted:Qty : 2 on 01/11/2015 by Colin Krause MD at OR [facility] [place] N/A: Spine Lumbar JNJ : DEPUY SPINE [id number] / / Screw 6x40 Poly Si [id number] - [id number] Implanted:Qty : 1 on 01/11/2015 by Colin Krause MD at OR [facility] [place] N/A: Spine Lumbar JNJ : ETHICON C[employer]IOVATIONS [id number] / / Screw 6x40 Ti Uni [id number] - [id number] Implanted:Qty : 8 on 01/11/2015 by Colni Krause MD at OR [facility] [place] N/A: Spine Lumbar JNJ : ETHICON CARDIOVATIONS [id number] / / Screw 5x40 Ti Uni [id number] - [id number] Implanted:Qty : 2 on 01/11/2015 by Colin Krause MD at OR [facility] [place] N/A: Spine Lumbar JNJ : ETHICON CARDIOVATIONS [id number] / / Screw 6x45 Ti Uni [id number] - [id number] Implanted:Qty : 6 on 01/11/2015 by Colin Krause MD at OR [facility] [place] N/A: Spine Lumbar JNJ : ETHICON CARDIOVATIONS [id number] / / Expedium Ti Sfx 5.5 Lat A2 - [id number] Implanted:Qty : 1 on 01/11/2015 by Colin Krause MD at OR [facility] [place] N/A: Spine Lumbar JNJ : ETHICON C[employer]IOVATIONS [id number] / / Screw Implanted:Qty : 2 on 04/30/2017 by Colin Krause MD at OR [facility] [place] N/A: Spine Lumbar SYNTHES : DEPUY [id number] / / Screw Implanted:Qty : 2 on 04/30/2017 by Colin Krause MD at OR [facility] [place] N/A: Spine Lumbar SYNTHES : DEPUY [id number] / / Cage Implanted:Qty : 4 on 04/30/2017 by Colin Krause MD at OR [facility] [place] N/A: Spine Lumbar SYNTHES : DEPUY [id number] / / Connector 5.5 Du [id number] - [id number] Implanted:Qty : 4 on 04/30/2017 by Colin Krause MD at OR [facility] [place] N/A: Spine Lumbar JNJ : ETHICON CARDIOVATIONS [id number] / / Uriel 120mm [id number] - [id number] Implanted:Qty : 2 on 04/30/2017 by Colin Krause MD at OR [facility] [place] N/A: Spine Lumbar JNJ : ETHICON CARDIOVATIONS [id number] / / Screw Set Sng Inner [id number] - [id number] Implanted:Qty : 6 on 04/30/2017 by Colin Krause MD at OR [facility] [place] N/A: Spine Lumbar JNJ : ETHICON CARDIOVATIONS [id number] / / Expedium Ti Sfx 5.5 Lat A6 - [id number] Implanted:Qty : 2 on 04/30/2017 by Colin Krause MD at OR [facility] [place] N/A: Spine Lumbar JNJ : ETHICON CARDIOVATIONS [id number] / / Screw 7x45 Ti Uni [id number] - [id number] Implanted:Qty : 4 on 01/11/2015 by Colin Krause MD at OR [facility] [place] Explanted:Qty : 2 on 04/30/2017 at OR [facility] [place] N/A: Spine Lumbar JNJ : DEPUY SPINE [id number] / / Screw Set Sng Inner [id number] - [id number] Implanted:Qty : 20 on 01/11/2015 by Colin Krause MD at OR [facility] [place] Explanted:Qty : 4 on 04/30/2017 at OR [facility] [place] N/A: Spine Lumbar JNJ : DEPUY SPINE [id number] / / Graft Infuse Bone Lg [id number] - [id number] Implanted:Qty : 1 on 04/30/2017 by Colin Krause MD at OR [facility] N/A: Spine Lumbar [employer] : NEURO CARE 06/10/2018 [id number] / / documented as of this encounter Visit Diagnoses Diagnosis My[facility] Research Other*[id number] documented in this encounter Advance Directives Documents on File Type Date Recorded Patient City Council[place] Expl anation Advanced Directive Advanced Directive 01/04/2015 [...]
--- OUTSIDE RECORDS SUMMARY | 2023-02-08 02:13 | External Medical Summary | Summary of Care ---
Author Name Unknown Organization [place] [address] Care Team Providers Care Housing Management Representative Name Role Phone Casey Rodgers MD Primary Care Provider [phone] Reason for Visit * Reason Comments Outpatient Testing Encounter Details Date Type Department Care Team Description 03/20/2022 Laboratory Laboratory, [facility] [address] [place] [address] [facility] [address] [facility] [place] [address] Arrived Allergies Active Allergy Reactions Severity Noted [...] mg) by mouth at bedtime. 0 Active Llaprirhsg-BCQE-Njxyq ine 50-325-40 MG Oral Tablet (Fioricet) Take [...] Office Visit Cardiology Sterling Lockhart MD [address] [facility] [place] [address] Health Maintenance Due Date Last Done Comments Hepatitis B (1 of 3 - 3-dose series) 1945 COVID-19 Vaccine (#1) 06/22/1945 Pneumococcal Vaccine: 65+ Years (1 - PCV) 1950 Depression Screening, Annual for Pts 12 and Over 1956 Alb / Creat Ratio 1962 Hepatitis C Screening 1962 DTaP,Tdap,and Td Vaccines (1 - Tdap) 12/21/1963 LUNG CANCER SCREENING - USE SMARTSET 28626 1994 Zoster Vaccines (1 of 2) 1994 [...] this encounter Medical Devices Implanted Type Area Recreation Facilities Supervisor Device Identifier Shelf Expiration Date Model / Serial / Lot Dbx 10cc [id number] - [id number] - [id number] Implanted:Qty : 1 on 01/11/2015 by Colin Krause MD at OR [facility] [place] Tissue - Human N/A: Spine Lumbar MUSCULOSKELETAL TRANSPLANT FND 08/18/2016 518275 / [id number] / Chip Cancellous 90cc [id number] - [id number] Implanted:Qty : 1 on 04/30/2017 by Colin Krause MD at OR [facility] [place] Tissue - Human N/A: Spine Lumbar MUSCULOSKELETAL TRANSPLANT FND 01/29/2018 [id number] / / Expedium Ti Sfx 5.5 Lat A2 - [id number] Implanted:Qty : 1 on 01/11/2015 by Colin Krause MD at OR [facility] [place] N/A: Spine Lumbar JNJ : ETHICON CARDIOVATIONS [id number] / / Expedium Ti Sfx 5.5 Lat A6 - [id number] Implanted:Qty : 2 on 04/30/2017 by Colin Krause MD at OR [facility] [place] N/A: Spine Lumbar JNJ : ETHICON CARDIOVATIONS [id number] / / documented as of this encounter [...] the patient have Health Care Power of Vocational Training Instructor? No Care Teams Housing Management Representative Relationship Specialty Start Date End Date Casey Rodgers MD [address] [place] [address] PCP - General Family Medicine 09/04/14 documented as of this encounter
--- OUTSIDE RECORDS SUMMARY | 2023-02-08 02:13 | External Medical Summary | Summary of Care ---
Author Name Unknown Organization [place] [address] Care Team Providers Care Textile Slitting Machine Operator Name Role Phone Karissa Rodgers MD Primary Care Provider [phone] Reason for Referral * Precert (Within 10 days (routine)) - Authorized Specialty Diagnoses / Procedures Referred By Contac t Referred To Contact Cardiac Studies Diagnoses Atrial fibrillation with RVR (HCC) Procedures ECHO, COMPLETE (2D), TRANS-THORACIC Sterling Lockhart MD [address] [place] [address] Referral ID Status Reason Start Date Expiration Date V isits Requested Visits Authorized [id number] Authorized Precert 04/19/2022 999 444 Reason for Visit * Reason Comments NEW PATIENT Last seen 11/2018, [facility] ED 03/04 Encounter Details Date Type Department Care Team Description 03/20/2022 Office Visit Cardiology, [facility] [address] [place] [address] Sterling Lockhart MD [address] [place] [address] Atrial fibrillation with RVR (HCC)* Allergies Active Allergy Reactions Severity Noted Date Comments Chlorhexidine Itching 09/10/2020 Hydrochlorothiazide Other (Please comment) 02/26/2017 Caused pancreatitis Metronidazole 02/09/2017 Pill causes severe diarrhea Ondansetron Other (Please comment) High 03/04/2018 TAYLOR documented as of this encounter (statuses as of 03/23/2022) Medications Medication Sig Dispensed Refills Start Date [...] mg) by mouth at bedtime. 0 Active Zylpzthmxt-LVIS-C affeine 50-325-40 MG Oral Tablet (Fioricet) Take [...] as of this encounter (statuses as of 03/23/2022) Active Problems Problem Noted Date S/P laminectomy with spinal fusion 06/01 Postoperative anemia due to acute blood loss 05/02/2017 HTN (hypertension) 05/02/2017 Tobacco abuse 05/02/2017 Spinal stenosis 05/02/2017 GERD (gastroesophageal reflux disease) 1 07/03/2016 SIRS (systemic inflammatory response syn drome) 05/02/2017 Thrombocytopenia 05/02/2017 Bilateral low back pain without sciatica 05/17/2015 documented as of this encounter (statuses as of 03/23/2022) Social History Tobacco Use Types Packs/Day Years [...] - 03/20/2022 11:49 AM EST Cardiology Consultation [facility] 03/20/2022 Reason for Consultation: Paroxysmal atrial fibrillation Provider Requesting Consultation: PCP: KARISSA RODGERS [address] [place] [address] [phone] History of Present Illness: Alexia Campos is [...] K21.9 • SIRS (systemic inflammatory response syndrome) ([facility]) R65.10 • Thrombocytopenia ([facility]) D69.6 • S/P laminectomy with spinal fusion Z98.1 Past Surgical History: Procedure Laterality Date • LUMBAR SPINE FUSION, POST INTERBODY N/A 04/30/2017 ARTHRODESIS SPINE POSTERIOR INTERBODY WITH LAMINECTOMY LUMBAR performed by Colin Krause MD at OR [facility] [place] • LUMBAR SPINE FUSION, POSTEROLATERAL N/A 01/11/2015 ARTHRODESIS SPINE POSTERIOR LUMBAR performed by Colin Krause MD at [facility] • LUMBAR SPINE FUSION, POSTEROLATERAL N/A 04/30/2017 ARTHRODESIS SPINE POSTERIOR LUMBAR performed by Colin Krause MD at OR [facility] [place] • REVISE/REMOVE SPINAL NEURORECEIVER N/A 01/11/2015 REVISION OR REMOVAL IMPLANTED SPINAL NEUROSTIMULATOR performed by Colin Krause MD at [facility] • THORAX SPINE FUSION, POSTEROLATERAL N/A 01/11/2015 ARTHRODESIS SPINE POSTERIOR THORACIC performed by Colin Krause MD at [facility] • TOTAL HYSTERECTOMY Family History: No family [...] Oral Tablet Take by mouth daily. • Fqajdnn-Kkwtyfhovpofq-Nquphiwx 250-250-65 MG Oral Tablet Take 2 Tablets [...] (100 mg) by mouth at bedtime. • Doabeqbowr-PWKW-Aoedsarc 50-325-40 MG Oral Tablet (Fioricet) Take 1 [...] weeks after echocardiogram Sterling Lockhart MD Cardiology, [facility] [address] [place] [address] I spent a total of Greater than 55 mins (exact time 60 mins) on the date of service in preparation,delivery, and documentation of the care provided to Alexia Campos excluding any time spent in theperformance of separately billed services. documented in this encounter Procedure Notes * Ted Shah DO - 03/20/2022 10:58 AM ESTAssociated Order(s): EKG REASON FOR STUDY: afib CONCLUSIONS: Normal sinus rhythm Normal ECG When compared with ECG of 07-NOV-2018 10:35, Criteria for Septal infarct are no longer Present Nonspecific T wave abnormality, improved in Anterior leads Ventricular Rate: 61 Atrial Rate: 61 MT Interval: 136 QRS Duration: 70 QT/QTc: 398/400 ms P-R-T [place]: 42 : 34 : 23 degrees documented in this encounter Nursing Notes * Lolis Harley CMA - 03/20/2022 10:57 AM EST Examination Room: 14 Name: Alexia Campos Date of : (1945). Reason for Visit: New patient, hospital f/u Interim Hospitalization(s): [facility] ED 03/04 Problems/Concerns: denies Chest Pain/SOB: [...] comprehension of instructions. documented in this encounter Miscellaneous Notes * Result Encounter Note - Sterling Lockhart MD - 03/20/2022 3:41 PM EST Renal function is normal. Potassium high normal would not make any changes in medications Hemoglobin hematocrit are normal documented in this encounter Plan of Treatment Upcoming Encounters Date Type Specialty Care Team Description 04/21/2022 Cardiac Studies Cardiac Studies 06/15/2022 Office Visit Cardiology Sterling Lockhart MD [address] [place] [address] Scheduled Orders Name Type Priority Associated Diagnoses Orde r Schedule ECHO, COMPLETE (2D), TRANS-THORACIC Echocardiology Routine Atrial [...] 12/21/1963 LUNG CANCER SCREENING - USE SMARTSET 83419 1994 Zoster Vaccines (1 of 2) 1994 [...] this encounter Medical Devices Implanted Type Area Cold Working Inspector Device Identifier Shelf Expiration Date Model / Serial / Lot Dbx 10cc [id number] - [id number] - [id number] Implanted:Qty : 1 on 01/11/2015 by Colin Krause MD at OR [facility] [place] Tissue - Human N/A: Spine Lumbar MUSCULOSKELETAL TRANSPLANT FND 08/18/2016 068291 / [id number] / Chip Cancellous 90cc [id number] - [id number] Implanted:Qty : 1 on 04/30/2017 by Colin Krause MD at OR [facility] [place] Tissue - Human N/A: Spine Lumbar MUSCULOSKELETAL TRANSPLANT FND 01/29/2018 [id number] / / Expedium Ti Sfx 5.5 Lat A2 - [id number] Implanted:Qty : 1 on 01/11/2015 by Colin Krause MD at OR [facility] [place] N/A: Spine Lumbar JNJ : ETHICON C[employer]IOVATIONS [id number] / / Expedium Ti Sfx 5.5 Lat A6 - [id number] Implanted:Qty : 2 on 04/30/2017 by Colin Krause MD at OR [facility] [place] N/A: Spine Lumbar JNJ : ETHICON CARDIOVATIONS [id number] / / documented as of this encounter Procedures Procedure Name Priority Date/Time Associated Diagnosis Comments DIFFERENTIAL, AUTOMATED Routine 03/20/2022 12:06 PM EST Atrial fibrillation with RVR (HCC) BASIC METABOLIC PANEL Routine 03/20/2022 12:06 PM EST Atrial fibrillation with RVR (HCC) CBC WITH WBC DIFFERENTIAL Routine 03/20/2022 12:06 PM EST Atrial fibrillation with RVR (HCC) CBC Routine 03/20/2022 12:06 PM EST Atrial fibrillation with RVR (HCC) MT ECG ROUTINE ECG W/LEAST 12 LDS W/I&R Routine 03/20/2022 10:58 AM EST Atrial fibrillation with RVR (HCC) documented [...] 1.10 K/uL 03/20/2022 1:03 PM EST [facility]10 Absolute Eosinophils 0.05 0.00 - 0.70 K/uL 03/20/2022 1:03 PM EST [facility] Absolute Basophils 0.05 0.00 - 0.20 K/uL 03/20/2022 1:03 PM EST [facility] Blood Venous blood specimen / Unknown Venipuncture / Unknown 03/20/2022 12:06 PM EST 03/20/2022 12:06 PM EST Sterling Lockhart MD LAB BLOOD ORDERABLES [facility] [place] [address] * (ABNORMAL) CBC (03/20/2022 12:06 PM EST) WBC 11.23(H) 4.00 - 10.80 K/uL 03/20/2022 1:03 PM EST [facility]10 RBC 4.41 3.85 - 5.15 M/uL 03/20/2022 1:03 PM EST [facility] 57-10 HGB 14.3 12.0 - 15.3 g/dL 03/20/2022 1:03 PM EST [facility]10 HCT 44.6 36.0 - 45.2 % 03/20/2022 1:03 PM EST [facility]10 MCV 101.1 81.5 - 97.5 fL 03/20/2022 1:03 PM EST [facility]10 MCH 32.4 27.0 - 34.0 pg 03/20/2022 1:03 PM EST [facility] 57-10 MCHC 32.1 32.0 - 36.0 g/dL 03/20/2022 1:03 PM EST [facility]10 RDW 16.7 11.5 - 15.5 % 03/20/2022 1:03 PM EST [facility]10 PLT 188 140 - 400 K/uL 03/20/2022 1:03 PM EST [facility]10 MPV 11.2 6.6 - 11.1 fL 03/20/2022 1:03 PM EST [facility]10 Blood Venous blood specimen / Unknown Venipuncture / Unknown 03/20/2022 12:06 PM EST 03/20/2022 12:06 PM EST Sterling Lockhart MD LAB BLOOD ORDERABLES [facility] [address] [place] [address] * BASIC METABOLIC PANEL (03/20/2022 12:06 PM EST) BUN 16 6 - 20 mg/dL 03/20/2022 1:52 PM EST [facility]10 Creatinine 0.6 0.5 - 1.0 mg/dL 03/20/2022 1:52 PM EST [facility]10 Estimated Glomerular Filtration Rate >90 >=60 mL/min 03/20/2022 1:52 PM EST [facility] 57-10 Comment:eGFR is calculated b ased on the CKD-EPI 2020 equation Sodium 140 135 - 146 mmol/L 03/20/2022 1:52 PM EST [facility] 57-10 Potassium 5.1 3.5 - 5.1 mmol/L 03/20/2022 1:52 PM EST [facility] 57-10 Chloride 102 98 - 107 mmol/L 03/20/2022 1:52 PM EST [facility] 57-10 CO2 27 22 - 32 mmol/L 03/20/2022 1:52 PM EST [facility] 57-10 Anion Gap 11 7 - 15 mmol/L 03/20/2022 1:52 PM EST [facility] 57-10 Glucose 93 70 - 120 mg/dL 03/20/2022 1:52 PM EST [facility] 57-10 Calcium 9.6 8.4 - 10.2 mg/dL 03/20/2022 1:52 PM EST [facility] 57-10 Blood Venous blood specimen / Unknown Venipuncture / Unknown 03/20/2022 12:06 PM EST 03/20/2022 12:06 PM EST Sterling Lockhart MD LAB BLOOD ORDERABLES [facility] [place] [address] * EKG (03/20/2022 10:58 AM EST) 03/20/2022 10:5 8 AM EST Procedure Note Ted Shah DO - 03/20/2022 10:58 AM EST REASON FOR STUDY: afib CONCLUSIONS: Normal sinus rhythm Normal ECG When compared with ECG of 07-NOV-2018 10:35, Criteria for Septal infarct are no longer Present Nonspecific T wave abnormality, improved in Anterior leads Ventricular Rate: 61 Atrial Rate: 61 MT Interval: 136 QRS Duration: 70 QT/QTc: 398/400 ms P-R-T [place]: 42 : 34 : 23 degrees Sterling Lockhart MD EKG [facility] documented in this encounter Visit Diagnoses Diagnosis [...] the patient have Health Care Power of Ream Cutter? No Care Teams Textile Slitting Machine Operator Relationship Specialty Start Date End Date Karissa Rodgers MD [address] [place] [address] PCP - General Family Medicine 09/04/14 documented as of this encounter"
--- OUTSIDE RECORDS SUMMARY | 2023-02-08 02:13 | External Medical Summary | Summary of Care ---
Author Name Unknown Organization [place] [address] Care Team Providers Care Contract Writer Name Role Phone Casey Rodgers MD Primary Care Provider [phone] Encounter Details Date Type Department Care Team Description 10/13/2021 Orders Only Outcomes Research Department [address], [place] [id number] Robbie Mcgee CHRA MyCode Research Other*[id number] Allergies Active Allergy Reactions Severity Noted Date Comments Hydrochlorothiazide Other (Please comment) 02/26/2017 Caused pancreatitis Metronidazole 02/09/2017 Pill causes severe diarrhea documented as of this encounter (statuses as of 10/13/2021) Medications Medication Sig Dispensed Refills Start Date [...] as of this encounter (statuses as of 10/13/2021) Active Problems Problem Noted Date S/P laminectomy with spinal fusion 06/01 Postoperative anemia due to acute blood loss 05/02/2017 HTN (hypertension) 05/02/2017 Tobacco abuse 05/02/2017 Spinal stenosis 05/02/2017 GERD (gastroesophageal reflux disease) 1 07/03/2016 SIRS (systemic inflammatory response syn drome) 05/02/2017 Thrombocytopenia 05/02/2017 Bilateral low back pain without sciatica 05/17/2015 documented as of this encounter (statuses as of 10/13/2021) Social History Tobacco Use Types Packs/Day Years Used Date Current Every Day Smoker Cigarettes 0.25 50 Started: 09/04/1965 Smokeless Tobacco: Never Used Alcohol Use Standard Drinks/Week Comments No 0 [...] MYCODE INITIAL ADULT Lab Routine MyCode Research Other*[id number] Expected: 10/13/2021 (Approximate), Expires: 11/02/2022 Health Maintenance Due Date Last Done Comments COVID-19 Vaccine (#1) 1950 Pneumococcal Vaccine: 65+ Years (1 - PCV) 1950 Depression Screening, Annual for Pts 12 and Over 1956 DTaP,Tdap,and Td Vaccines (1 - Tdap) 12/21/1963 Zoster Vaccines (1 of 2) 1994 BASIC METABOLIC PANEL (BMP) FOR HTN YEARLY 10/23/2018 10/23/2017, 05/03/2017, 05/02/2017, Additional history exists DIABETES SCREEN EVERY 3 YRS-AGE 45 AND ABOVE 10/23/2020 10/23/2017, 05/03/2017, 05/02/2017, Additional history exists Dexa Scan 12/26/2021 12/26/2014 Influenza Vaccine (FLU shot) (Season Ended) 2022 GARDASIL-HPV IMMUNIZATION SERIES Aged Out No longer eligible based on patient's age to complete this topic MENINGOCOCCAL (MENACTRA/MENVEO) Aged Out No longer eligible based on patient's age to complete this topic documented as of this encounter Implants Implanted Type Area Aircraft Instrument Mechanic Device Identifier Shelf Expiration Date Model / Serial / Lot Dbx 10 [id number] - [id number] - [id number] Implanted:Qty : 1 on 01/11/2015 by Colin Krause MD at [facility] [place] Tissue - Human N/A: Spine Lumbar MUSCULOSKELETAL TRANSPLANT FND 08/18/2016 [id number] / [id number] / Dbx 10 [id number] - [id number] - [id number] Implanted:Qty : 1 on 01/11/2015 by Colin Krause MD at [facility] [place] Tissue - Human N/A: Spine Lumbar MUSCULOSKELETAL TRANSPLANT FND 08/18/2016 [id number] / [id number] / Chip Cancellous 30cc [id number] - [id number] Implanted:Qty : 1 on 04/30/2017 by Colin Krause MD at [facility] [place] Tissue - Human N/A: Spine Lumbar MUSCULOSKELETAL TRANSPLANT FND 01/20/2020 [id number] / / Chip Cancellous 90cc [id number] - [id number] Implanted:Qty : 1 on 04/30/2017 by Colin Krause MD at [facility] [place] Tissue - Human N/A: Spine Lumbar MUSCULOSKELETAL TRANSPLANT FND 01/29/2018 [id number] / / [id number] [id number] Cocr - [id number] Implanted:Qty : 2 on 01/11/2015 by Colin Krause MD at [facility] [place] N/A: Spine Lumbar JNJ : DEPUY SPINE [id number] / / Screw 6x40 Poly Si [id number] - [id number] Implanted:Qty : 1 on 01/11/2015 by Colin Krause MD at [facility] [place] N/A: Spine Lumbar JNJ : ETHICON CARDIOVATIONS [id number] / / Screw 6x40 Ti Uni [id number] - [id number] Implanted:Qty : 8 on 01/11/2015 by Colin Krause MD at [facility] [place] N/A: Spine Lumbar JNJ : ETHICON CARDIOVATIONS [id number] / / Screw 5x40 Ti Uni [id number] - [id number] Implanted:Qty : 2 on 01/11/2015 by Colin Krause MD at [facility] [place] N/A: Spine Lumbar JNJ : ETHICON CARDIOVATIONS [id number] / / Screw 6x45 Ti Uni [id number] - [id number] Implanted:Qty : 6 on 01/11/2015 by Colin Krause MD at [facility] [place] N/A: Spine Lumbar JNJ : ETHICON CARDIOVATIONS [id number] / / Expedium Ti Sfx 5.5 Lat A2 - [id number] Implanted:Qty : 1 on 01/11/2015 by Colin Krause MD at [facility] [place] N/A: Spine Lumbar JNJ : ETHICON CARDIOVATIONS [id number] / / Screw Implanted:Qty : 2 on 04/30/2017 by Colin Krause MD at [facility] [place] N/A: Spine Lumbar SYNTHES : DEPUY [id number] / / Screw Implanted:Qty : 2 on 04/30/2017 by Colin Krause MD at [facility] [place] N/A: Spine Lumbar SYNTHES : DEPUY [id number] / / Cage Implanted:Qty : 4 on 04/30/2017 by Colin Krause MD at [facility] [place] N/A: Spine Lumbar SYNTHES : DEPUY [id number] / / Connector 5.5 Du [id number] - [id number] Implanted:Qty : 4 on 04/30/2017 by Colin Krause MD at [facility] [place] N/A: Spine Lumbar JNJ : ETHICON CARDIOVATIONS [id number] / / Uriel 120mm [id number] - [id number] Implanted:Qty : 2 on 04/30/2017 by Colin Krause MD at [facility] [place] N/A: Spine Lumbar JNJ : ETHICON CARDIOVATIONS [id number] / / Screw Set Sng Inner [id number] - [id number] Implanted:Qty : 6 on 04/30/2017 by Colin Krause MD at [facility] [place] N/A: Spine Lumbar JNJ : ETHICON CARDIOVATIONS [id number] / / Expedium Ti Sfx 5.5 Lat A6 - [id number] Implanted:Qty : 2 on 04/30/2017 by Colin Krause MD at [facility] [place] N/A: Spine Lumbar JNJ : ETHICON CARDIOVATIONS [id number] / / Screw 7x45 Ti Uni [id number] - [id number] Implanted:Qty : 4 on 01/11/2015 by Colin Krause MD at [facility] [place] Explanted:Qty : 2 on 04/30/2017 at [facility] N/A: Spine Lumbar JNJ : DEPUY SPINE [id number] / / Screw Set Sng Inner [id number] - [id number] Implanted:Qty : 20 on 01/11/2015 by Colin Krause MD at [facility] [place] Explanted:Qty : 4 on 04/30/2017 at [facility] N/A: Spine Lumbar JNJ : DEPUY SPINE [id number] / / Graft Infuse Bone Lg [id number] - [id number] Implanted:Qty : 1 on 04/30/2017 by Colin Krause MD at [facility] [place] N/A: Spine Lumbar MEDTRONIC : NEURO CARE 06/10/2018 [id number] / / documented as of this encounter Visit Diagnoses Diagnosis MyCode Research Other*[id number] documented in this encounter Advance Directives Documents on File Type Date Recorded Patient Html Developer Expl anation Advanced Directive Advanced Directive 04/26/2017 4:17 PM Advanced Directive 01/04/2015 2:13 PM Latest Code Status on File Code [...] Health Care Power of Attor shubham? No Care Teams Contract Writer Relationship Specialty Start Date End Date Casey Rodgers MD [address] [place] [address] PCP - General Family Medicine 09/04/14 documented as of this encounter
--- OUTSIDE RECORDS SUMMARY | 2023-02-08 02:13 | External Medical Summary | Summary of Care ---
Author Name Unknown Organization [place] [address] Care Team Providers Care Truck Rental Service Attendant Name Role Phone Casey Rodgers MD Primary Care Provider [phone] Reason for Visit * Reason Onset Date Comments Emergency Department Follow-Up 05/15/2022 Encounter Details Date Type Department Care Team Description 05/15/2022 Telephone [address]iology, [facility] [address] [place] [id number] Rhiannon Leal PA-C [address] [place] [address] Emergency Department Follow-Up Allergies Active Allergy Reactions Severity Noted Date Comments Chlorhexidine Itching 09/10/2020 Hydrochlorothiazide Other (Please comment) 02/26/2017 Caused pancreatitis Metronidazole 02/09/2017 Pill causes severe diarrhea Ondansetron Other (Please comment) High 03/04/2018 TAYLOR documented as of this encounter (statuses as of 05/18/2022) Medications Medication Sig Dispensed Refills Start Date [...] mg) by mouth at bedtime. 0 Active Qhzjhwtxvs-VCHG-Mvfv eine 50-325-40 MG Oral Tablet (Fioricet) Take 1 [...] before bedtime. 180 Tablet 3 03/26/2022 Active documented as of this encounter (statuses as of 05/18/2022) Active Problems Problem Noted Date S/P laminectomy with spinal fusion 06/01 Postoperative anemia due to acute blood loss 05/02/2017 HTN (hypertension) 05/02/2017 Tobacco abuse 05/02/2017 Spinal stenosis 05/02/2017 GERD (gastroesophageal reflux disease) 1 07/03/2016 SIRS (systemic inflammatory response syn drome) 05/02/2017 Thrombocytopenia 05/02/2017 Bilateral low back pain without sciatica 05/17/2015 documented as of this encounter (statuses as of 05/18/2022) Social History Tobacco Use Types Packs/Day Years [...] encounter Miscellaneous Notes * Telephone Encounter - Rhiannon Leal PA-C - 05/15/2022 4:18 PM EST Received call from Provider at [facility] Emergency room today. Patient called EMS today with complaints of chest pain and palpitations. Upon arrival to patient's house, patient was found to have atrial fibrillation with RVR rates in the 170's. She was given IV diltiazem bolus on route to ER and rates improved to 130 bpm. She converted to NSR in the ER before EKG was obtained. HS troponin was 17. Repeat pending. Patient remained chest pain free upon return to NSR HR currently in the mid 60's, normal sinus. I recommended that as long as repeat troponin was not significantly elevated, and that she remainedchest pain free, ok to discharge for scheduled follow up. I also recommended increasing daily diltiazem to 180 mg daily. Continue Eliquis 5 mg BID Has f/u with Dr. Lockhart on 06/15 Only documented in this encounter Plan of Treatment Upcoming Encounters Date Type Specialty Care Team Description 06/15/2022 Office Visit Cardiology Sterling Lockhart MD [address] [place] [address] Health Maintenance Due Date Last Done Comments Pneumococcal Vaccine: 65+ Years (1 - PCV) 1950 Depression Screening, Annual for Pts 12 and Over 1956 Alb / Creat Ratio 1962 Hepatitis C Screening 1962 DTaP,Tdap,and Td Vaccines (1 - Tdap) 12/21/1963 LUNG CANCER SCREENING - USE SMARTSET 37421 1994 Zoster Vaccines (1 of 2) 1994 [...] this encounter Medical Devices Implanted Type Area Net Mobile Developer Device Identifier Shelf Expiration Date Model / Serial / Lot Dbx 10cc [id number] - [id number] - [id number] Implanted:Qty : 1 on 01/11/2015 by [place] Kra[place] [facility] [place] - Human N/A: Spine Lumbar MUSCULOSKELETAL TRANSPLANT FND 08/18/2016 321107 / [id number] / Chip Cancellous 90cc [id number] - [id number] Implanted:Qty : 1 on 04/30/2017 by Colin Krause [place] [facility] [place] - Human N/A: Spine Lumbar MUSCULOSKELETAL TRANSPLANT FND 01/29/2018 [id number] / / Expedium Ti Sfx 5.5 Lat A2 - [id number] Implanted:Qty : 1 on 01/11/2015 by Colin Krause [place] [facility] [place]/A: Spine Lumbar JNJ : ETHICON CARDIOVATIONS [id number] / / Expedium Ti Sfx 5.5 Lat A6 - [id number] Implanted:Qty : 2 on 04/30/2017 by [place] Krause [place] [facility] [place]/A: Spine Lumbar JNJ : ETHICON CARDIOVATIONS [id number] / / documented as of this encounter [...] the patient have Health Care Power of [place]? No Care Teams Truck Rental Service Attendant Relationship Specialty Start Date End Date Casey Rodgers MD [address] [place] [address] PCP - General Family Medicine 09/04/14 documented as of this encounter
--- OUTSIDE RECORDS SUMMARY | 2023-02-08 02:13 | External Medical Summary | Summary of Care ---
Author Name Unknown Organization [place] [address] Care Team Providers Care River Expedition Guide Name Role Phone Casey Rodgers MD Primary Care Provider [phone] Encounter Details Date Type Department Care Team Description 10/25/2018 Orders Only Cardiology, [facility] [address] [place] [place] [address] Sterling Lockhart MD [address] [place] [address] [phone] HTN (hypertension)* Allergies Active Allergy Reactions Severity Noted Date Comments Hydrochlorothiazide Other (Please comment) 02/26/2017 Caused pancreatitis Metronidazole 02/09/2017 Pill causes severe diarrhea documented as of this encounter (statuses as of 10/25/2018) Medications Medication Sig Dispensed Refills Start Date [...] as of this encounter (statuses as of 10/25/2018) Active Problems Problem Noted Date S/P laminectomy with spinal fusion 06/01 Postoperative anemia due to acute blood loss 05/02/2017 HTN (hypertension) 05/02/2017 Tobacco abuse 05/02/2017 Spinal stenosis 05/02/2017 GERD (gastroesophageal reflux disease) 1 07/03/2016 SIRS (systemic inflammatory response syn drome) 05/02/2017 Thrombocytopenia 05/02/2017 Bilateral low back pain without sciatica 05/17/2015 documented as of this encounter (statuses as of 10/25/2018) Social History Tobacco Use Types Packs/Day Years [...] Visit Cardiology Sterling Lockhart MD [address] [place] [address] [phone] Scheduled Orders Name Type Priority Associated Diagnoses Orde r Schedule EKG EKG Routine HTN (hypertension) Expected: 11/07/2018, Expires: 9 Health Maintenance Due Date Last Done Comments [...] YEAR),AGES 50-75 06/13/2017 Influenza Vaccine (FLU shot) (Season Ended) 2018 LIPID SCREEN EVERY 5 YRS-WOMEN AGE 45-75 09/05/2019 09/04/2014 DIABETES SCREEN EVERY 3 YRS-AGE 45 AND ABOVE 10/23/2020 10/23/2017, 05/03/2017, 05/02/2017, Additional history exists DXA-SCREENING EVERY 7 YRS-USE SMARTSET# 3348 TO ORDER 12/26/2021 12/26/2014 MENINGOCOCCAL (MENACTRA) Aged Out No longer eligible based on patient's age to complete this topic documented as of this encounter Implants Implanted Type Area Cement Block Maker Device Identifier Shelf Expiration Date Model / Serial / Lot Dbx 10cc [id number] - [id number] - [id number] Implanted:Qty : 1 on 01/11/2015 by Colin Krause MD at [facility] [place] Tissue - Human N/A: Spine Lumbar MUSCULOSKELETAL TRANSPLANT FND 08/18/2016 893098 / [id number] / Dbx 10cc 722054 - [id number] - [id number] Implanted:Qty : 1 on 01/11/2015 by Colin Krause MD at [facility] [place] Tissue - Human N/A: Spine Lumbar MUSCULOSKELETAL TRANSPLANT FND 08/18/2016 304709 / [id number] / Chip Cancellous 30cc 650003 - [id number] Implanted:Qty : 1 on 04/30/2017 by Colin Krause MD at [facility] [place] Tissue - Human N/A: Spine Lumbar MUSCULOSKELETAL TRANSPLANT FND 01/20/2020 [id number] / / Chip Cancellous 90cc [id number] - [id number] Implanted:Qty : 1 on 04/30/2017 by Colin Krause MD at [facility] [place] Tissue - Human N/A: Spine Lumbar MUSCULOSKELETAL TRANSPLANT FND 01/29/2018 [id number] / / Viper2 Straight [id number] Cocr - [id number] Implanted:Qty : 2 on 01/11/2015 by Colin Krause MD at [facility] [place] N/A: Spine Lumbar JNJ : DEPUY SPINE [id number] / / Screw 6x40 Poly Si [id number] - [id number] Implanted:Qty : 1 on 01/11/2015 by Colin Krause MD at [facility] [place] N/A: Spine Lumbar JNJ : ETHICON CARDIOVATIONS [id number] / / Screw 6x40 Ti Uni [id number] - [id number] Implanted:Qty : 8 on 01/11/2015 by Colin Krause MD at [facility] [place] N/A: Spine Lumbar JNJ : ETHICON CARDIOVATIONS [id number] / / Screw 5x40 Ti Uni [id number] - [id number] Implanted:Qty : 2 on 01/11/2015 by Colin Krause MD at [facility] [place] N/A: Spine Lumbar JNJ : ETHICON CARDIOVATIONS [id number] / / Screw 6x45 Ti Uni [id number] - [id number] Implanted:Qty : 6 on 01/11/2015 by Colin Krause MD at [facility] [place] N/A: Spine Lumbar JNJ : ETHICON CARDIOVATIONS [id number] / / Expedium Ti Sfx 5.5 Lat A2 - [id number] Implanted:Qty : 1 on 01/11/2015 by Colin Krause MD at [facility] [place] N/A: Spine Lumbar JNJ : ETHICON CARDIOVATIONS [id number] / / Screw Implanted:Qty : 2 on 04/30/2017 by Colin Krause MD at [facility] [place] N/A: Spine Lumbar SYNTHES : DEPUY [id number] / / Screw Implanted:Qty : 2 on 04/30/2017 by Colin Krause MD at [facility] [place] N/A: Spine Lumbar SYNTHES : DEPUY [id number] / / Cage Implanted:Qty : 4 on 04/30/2017 by Colin Krause MD at [facility] [place] N/A: Spine Lumbar SYNTHES : DEPUY / / Connector 5.5 Du [id number] - [id number] Implanted:Qty : 4 on 04/30/2017 by Colin Krause MD at [facility] [place] N/A: Spine Lumbar JNJ : ETHICON CARDIOVATIONS [id number] / / Uriel 120mm [id number] - [id number] Implanted:Qty : 2 on 04/30/2017 by Colin Krause MD at [facility] [place] N/A: Spine Lumbar JNJ : ETHICON CARDIOVATIONS [id number] / / Screw Set Sng Inner [id number] - [id number] Implanted:Qty : 6 on 04/30/2017 by Colin Krause MD at [facility] [place] N/A: Spine Lumbar JNJ : ETHICON CARDIOVATIONS [id number] / / Expedium Ti Sfx 5.5 Lat A6 - [id number] Implanted:Qty : 2 on 04/30/2017 by Colin Krause MD at [facility] [place] N/A: Spine Lumbar JNJ : ETHICON CARDIOVATIONS [id number] / / Screw 7x45 Ti Uni [id number] - [id number] Implanted:Qty : 4 on 01/11/2015 by Colin Krause MD at [facility] [place] Explanted:Qty : 2 on 04/30/2017 at [facility] [place] N/A: Spine Lumbar JNJ : DEPUY SPINE [id number] / / Screw Set Sng Inner [id number] - [id number] Implanted:Qty : 20 on 01/11/2015 by Colin Krause MD at [facility] [place] Explanted:Qty : 4 on 04/30/2017 at [facility] [place] N/A: Spine Lumbar JNJ : DEPUY SPINE [id number] / / Graft Infuse Bone Lg 9853586 - [id number] Implanted:Qty : 1 on 04/30/2017 by Colin Krause MD at [facility] [place] N/A: Spine Lumbar [employer] : NEURO CARE 06/10/2018 [id number] / / documented as of this encounter Visit Diagnoses Diagnosis HTN (hypertension)- Primary Unspecified essential hypertension documented in this encounter Advance Directives Documents on File Type Date Recorded Patient Manager Part Expl anation Advanced Directive Advanced Directive 01/04/2015 [...]
--- OUTSIDE RECORDS SUMMARY | 2023-02-08 02:13 | External Medical Summary ---
Author Name Unknown Address Unknown Organization K0G:[facility] [address] [place] [address] Laboratory Report Ordering Provider Test Date Status JAVID DUVALL 03/20/2022 12:06:22 Final Observation Date Value Abnormality Reference (Units ) Status BUN 03/20/2022 12:06:22 16 6-20 (mg/dL) Final Creatinine 03/20/2022 12:06:22 0.6 0.5-1.0 (mg/dL) Final Glomerular filtration rate/1.73 sq M.predicted [Volume Rate/Area] in Serum, Plasma or Blood by Creatinine-based formula (CKD-EPI) 03/20/2022 12:06:22 >90 >=60 (mL/min) Final Performing Location [facility] [address] [place] [address]
--- OUTSIDE RECORDS SUMMARY | 2023-02-08 02:13 | External Medical Summary | Summary of Care ---
Author Name Unknown Organization [place] [address] Care Team Providers Care Hotel Staff Member Name Role Phone Casey Rodgers MD Primary Care Provider [phone] Reason for Visit * Reason Onset Date Comments Med Request 03/25/2022 medication change 03/25/2022 Encounter Details Date Type Department Care Team Description 03/25/2022 Telephone Cardiology, [facility] [address] [place] [address] Jadeil Lockhart MD [address] [place] [place] [address] Med Request; medication change Allergies Active Allergy [...] mg) by mouth at bedtime. 0 Active Mtztvndgro-IZNX-A affeine 50-325-40 MG Oral Tablet (Fioricet) Take 1 Tablet by mouth 3 times a day as needed. 0 Active Lisinopril 5 MG Oral Tablet (Prinivil) Take 1 Tablet (5 mg) by mouth in the morning. 30 Tablet 5 03/20/2022 Active Apixaban 5 MG Oral Tablet (Eliquis) [...] the morning. 0 03/05/2022 03/25/2022 Discontinued (Refill) dilTIAZem HCl ER Coated Beads 120 MG Oral Capsule Extended Release 24 Hour (Cardizem CD) Take 1 Capsule (120 mg) by mouth in the morning. 90 Capsule 3 03/26/2022 05/26/2022 Discontinued (Medication/ Dose Changed) documented as of [...] Note - Jessica Marion RPh - 05/26/2022 4:21 PM ESTAddended by: JESSICA MARION on: 05/26/2022 04:21 PM Modules accepted: Orders * Addendum Note - Jadiel Lockhart MD - 05/26/2022 1:46 PM ESTAddended by: JADIEL LOCKHART on: 05/26/2022 01:46 PM Modules accepted: Orders * Addendum Note - Jessica Marion [facility] - 05/26/2022 1:05 PM ESTAddended by: JESSICA MARION on: 05/26/2022 01:05 PM Modules accepted: Orders * Telephone Encounter - Jessica Marion [facility] - 05/26/2022 1:01 PM EST Pt requesting [...] Thank you, Jessica Marion, PharmD Clinical Pharmacist [facility] [phone] 05/26/2022, 1:04 PM * Telephone Encounter - Sally Pérez [facility] - 05/26/2022 11:24 AM EST Pt calling in to request a dose change on their diltiazem. Current dose: 120mg once daily Requested dose: 180mg once daily Reason for request: pt stated MD sent in 14 days for her and it is working well for her- she is asking for it to be continued Preferred pharmacy: [id number]- [place] Patient unwilling to speak with pharmacist at this time. Routing to pharmacist pool to advise. Thank you, Sally Pérez CPhT Nurse P[address] [facility] 05/26/2022, 11:24 AM * Telephone Encounter - YONNY Burrows - 03/25/2022 9:42 AM EST Pt called these medications pended were given to pt in the ER She needs Refills Please refill Thank you Anuja Huang YONNY documented in this encounter Plan of Treatment Upcoming Encounters Date Type Specialty Care Team Description 06/15/2022 Office Visit Cardiology Jadiel Lockhart MD [address] [place] [place] [address] Health Maintenance Due Date Last Done Comments Pneumococcal Vaccine: 65+ Years (1 - PCV) 1950 Depression Screening, Annual for Pts 12 and Over 1956 Alb / Creat Ratio 1962 Hepatitis C Screening 1962 DTaP,Tdap,and Td Vaccines (1 - Tdap) 12/21/1963 LUNG CANCER SCREENING - USE SMARTSET 37240 1994 Zoster Vaccines (1 of 2) 1994 [...] this encounter Medical Devices Implanted Type Area Career Technical Supervisor Device Identifier Shelf Expiration Date Model / Serial / Lot Dbx 10cc [id number] - [id number] - [id number] Implanted:Qty : 1 on 01/11/2015 by Colin Krause MD at [place] [facility] [place] Tissue - Human N/A: Spine Lumbar MUSCULOSKELETAL TRANSPLANT FND 08/18/2016 646807 / [id number] / Chip Cancellous 90cc [id number] - [id number] Implanted:Qty : 1 on 04/30/2017 by Colin Krause MD at [place] [facility] [place] Tissue - Human N/A: Spine Lumbar MUSCULOSKELETAL TRANSPLANT FND 01/29/2018 [id number] / / Expedium Ti Sfx 5.5 Lat A2 - [id number] Implanted:Qty : 1 on 01/11/2015 by Colin Krause MD at [place] [facility] [place] N/A: Spine Lumbar JNJ : ETHICON CARDIOVATIONS [id number] / / Expedium Ti Sfx 5.5 Lat A6 - [id number] Implanted:Qty : 2 on 04/30/2017 by Colin Krause MD at [place] [facility] [place] N/A: Spine Lumbar JNJ : ETHICON CARDIOVATIONS [id number] / / documented as of this encounter [...] the patient have Health Care Power of Community Resource Consultant? No Care Teams Hotel Staff Member Relationship Specialty Start Date End Date Casey Rodgers MD [address] [place] [address] PCP - General Family Medicine 09/04/14 documented as of this encounter
--- OUTSIDE RECORDS SUMMARY | 2023-02-08 02:14 | External Medical Summary | Summary of Care ---
Author Name Unknown Organization [place] [address] Phone Care Team Providers Care Research Consultant Name Role Phone Casey Rodgers MD Primary Care Provider + [phone] Reason for Visit * Reason Comments MED REQUEST Encounter Details Date Type Department Care Team Description 06/11/2017 Telephone Orthopaedics Spine [facility], [place] [address] [place] [address] Colin Krause MD [address] [place] [address] MED REQUEST Allergies Active Allergy Reactions Severity Noted Date Comments Hydrochlorothiazide Other (Please comment) 02/26/2017 Caused pancreatitis Metronidazole 02/09/2017 Pill causes severe diarrhea as of this encounter Medications Prescription Sig. Disp. Refills Start Date End Date Status gabapentin (NEURONTIN) 300 MG CapsuleIndications:1 tab three times daily and 2 tabs at bedtime Take 300 mg by mouth 4 times a day. Indications: 1 tab three times daily and 2 tabs at bedtime 10/29/2015 Active pantoprazole (PROTONIX) 40 MG TBEC Take 1 Tab by mouth daily. 12 02/24/2017 Active lisinopril (PRINIVIL) 10 MG Tablet Take 1 Tab by mouth daily. Patient reports she takes as needed. 30 Tab 11 02/26/2017 Active oxyCODONE (OXY IR) 5 MG immediate release tablet Take 1-2 tabs every 4 hours as needed for pain 90 Tab 0 05/17/2017 Active HYDROcodone-acetaminoph en 5-325 mg per tab 5-325 MG per tablet Take 1 Tab by mouth every 6 hours as needed for Pain, Mild. 90 Tab 0 06/16/2017 Active as of this encounter Active Problems [...] older No 04/30/2017 as of this encounter Miscellaneous Notes * Telephone Encounter - Alysa Christianson YONNY - 06/16/2017 12:10 PM EST Script written for pt. Pls mail to: [id number] [place] [address] Script Mailed * Telephone Encounter - Alysa Christianson YONNY - 06/16/2017 8:20 AM EST Pls call pt regarding her medication. Pt is out of meds. Pt stating she can hardly stand the pain. Surgery: 04/30/18 * Telephone Encounter - Alysa Christianson, YONNY - 06/15/2017 8:39 AM EST Pt called to check on her script request * Telephone Encounter - Linda Jarquin PA-C - 06/14/2017 9:54 AM EST Message sent to Jimi Fonseca * Telephone Encounter - Alysa Christianson, YONNY - 06/14/2017 8:07 AM EST Pt stating she is aksing for something less strong than Oxycodone. Pt phone: [phone] * Telephone Encounter - Anthony Valeria Meyer, YONNY - 06/11/2017 9:12 AM EST Patient calling, had surgery in April and is still experiencing a lot of pain. Is currently in [place] and would like to know if script can be faxed in. Says in [place], script needs to be signed by Physician and not IVONNE. [facility] in [place], [place], ph [phone], fx [phone]. Pt in this encounter Plan of Treatment Upcoming Encounters Date Type Specialty Care Team Description 10/05/2017 Office Visit Orthopedic Surgery Colin Krause MD [address] [place] [place] [address] 11/01/2017 Office Visit Cardiology Sterling Lockhart [facility] [address] [facility] [place] [address] [phone] Health Maintenance Due Date Last Done Comments DTaP,Tdap,and Td Vaccines (1 - Tdap) 12/21/1964 BREAST CANCER SCREENING DISC USSION YEARLY AGES 40-75 1984 PNEUMOCOCCAL ADULT 65 YRS AN D OVER (1 of 2 - PCV13) 2009 *ADVANCE DIRECTIVE NOT ON FILE 09/08/2014 *DEPRESSION SCREENING, TAMI [place] FOR PTS 18 AND OVER 09/08/2014 Influenza Vaccine (FLU shot) (#1) 2016 *COLORECTAL CANCER SCREENING (COLONOSCOPY 10 YEARS; SIGMOIDOSCOPY 5 YEARS; COLOGUARD 3 YEARS; FOBT 1 YEAR),AGES 50-75 06/13/2017 LIPID SCREEN EVERY 5 YRS-WOM EN AGE 45-75 09/05/2019 09/04/2014 DIABETES SCREEN EVERY 3 YRS- AGE 45 AND ABOVE 05/03/2020 05/03/2017, 05/02/2017, 05/02/2017, Additional history exists DXA-SCREENING EVERY 7 YRS- E SMARTSET# 3348 TO ORDER 12/26/2021 12/26/2014 as of this encounter Implants Implanted Type Area Foreman Or Supervisor And Operator Device Identifier Expiration Date Model / Serial / Lot Dbx 10 381932 - [id number] - [id number] Implanted:Qty : 1 on 01/11/2015 by Colin Krause MD Tissue - Human N/A: Spine Lumbar MUSCULOSKELETAL TRANSPLANT FND 08/18/2016 687818 / [id number] / Dbx 10 [id number] - [id number] - [id number] Implanted:Qty : 1 on 01/11/2015 by Colin Krause MD Tissue - Human N/A: Spine Lumbar MUSCULOSKELETAL TRANSPLANT FND 08/18/2016 585945 / [id number] / Chip Cancellous 30cc [id number] - [id number] Implanted:Qty : 1 on 04/30/2017 by Colin Krause MD Tissue - Human N/A: Spine Lumbar MUSCULOSKELETAL TRANSPLANT FND 01/20/2020 748224 / / Chip Cancellous 90cc [id number] - [id number] Implanted:Qty : 1 on 04/30/2017 by Colin Krause MD Tissue - Human N/A: Spine Lumbar MUSCULOSKELETAL TRANSPLANT FND 01/29/2018 [id number] / / Viper2 Straight [id number] Cocr - [id number] Implanted:Qty : 2 on 01/11/2015 by Colin Krause MD N/A: Spine Lumbar JNJ : DEPUY SPINE [id number] / / Screw 6x40 Poly Si [id number] - [id number] Implanted:Qty : 1 on 01/11/2015 by Colin Krause MD N/A: Spine Lumbar JNJ : ETHICON CARDIOVATIONS [id number] / / Screw 6x40 Ti Uni [id number] - [id number] Implanted:Qty : 8 on 01/11/2015 by Colin Krause MD N/A: Spine Lumbar JNJ : ETHICON CARDIOVATIONS [id number] / / Screw 5x40 Ti Uni [id number] - [id number] Implanted:Qty : 2 on 01/11/2015 by Colin Krause MD N/A: Spine Lumbar JNJ : ETHICON CARDIOVATIONS [id number] / / Screw 6x45 Ti Uni [id number] - [id number] Implanted:Qty : 6 on 01/11/2015 by Colin Krause MD N/A: Spine Lumbar JNJ : ETHICON CARDIOVATIONS [id number] / / Expedium Ti Sfx 5.5 Lat A2 - [id number] Implanted:Qty : 1 on 01/11/2015 by Colin Krause MD N/A: Spine Lumbar JNJ : ETHICON CARDIOVATIONS [id number] / / Screw Implanted:Qty : 2 on 04/30/2017 by Colin Krause MD N/A: Spine Lumbar SYNTHES : DEPUY [id number] / / Screw Implanted:Qty : 2 on 04/30/2017 by Colin Krause MD N/A: Spine Lumbar SYNTHES : DEPUY [id number] / / Cage Implanted:Qty : 4 on 04/30/2017 by Colin Krause MD N/A: Spine Lumbar SYNTHES : DEPUY 1878-21-111 / / Connector 5.5 Du [id number] - [id number] Implanted:Qty : 4 on 04/30/2017 by Colin Krause MD N/A: Spine Lumbar JNJ : ETHICON CARDIOVATIONS [id number] / / Uriel 120mm [id number] - [id number] Implanted:Qty : 2 on 04/30/2017 by Colin Krause MD N/A: Spine Lumbar JNJ : ETHICON CARDIOVATIONS [id number] / / Screw Set Sng Inner [id number] - [id number] Implanted:Qty : 6 on 04/30/2017 by Colin Krause MD N/A: Spine Lumbar JNJ : ETHICON CARDIOVATIONS [id number] / / Expedium Ti Sfx 5.5 Lat A6 - [id number] Implanted:Qty : 2 on 04/30/2017 by Colin Krause MD N/A: Spine Lumbar JNJ : ETHICON CARDIOVATIONS [id number] / / Screw 7x45 Ti Uni [id number] - [id number] Implanted:Qty : 4 on 01/11/2015 by Colin Krause MD Explanted:Qty : 2 on 04/30/2017 N/A: Spine Lumbar JNJ : DEPUY SPINE [id number] / / Screw Set Sng Inner [id number] - [id number] Implanted:Qty : 20 on 01/11/2015 by Colin Krause MD Explanted:Qty : 4 on 04/30/2017 N/A: Spine Lumbar JNJ : DEPUY SPINE [id number] / / Graft Infuse Bone Lg 2357699 - [id number] Implanted:Qty : 1 on 04/30/2017 by Colin Krause MD N/A: Spine Lumbar [employer] : NEURO CARE 06/10/2018 [id number] / / as of this encounter Insurance Payer Benefit Plan / Group Subscriber ID Type Phone Address MEDICARE MEDICARE A AND B [id number] Medicare [place] [id number] [address] [place] [address] as of this encounter
--- OUTSIDE RECORDS SUMMARY | 2023-02-08 02:14 | External Medical Summary | Summary of Care ---
Author Name Unknown Organization [place] [address] Phone Care Team Providers Care Vacuum Forming Machine Operator Name Role Phone Casey Rodgers MD Primary Care Provider + [phone] Reason for Visit * Reason Comments MEDICATION REFILL Encounter Details Date Type Department Care Team Description [facility] [address], [place] [id number] Colin Krause MD [address] [place], [place] [address] Allergies Active Allergy Reactions Severity Noted Date [...] 07/03/2016 SIRS (systemic inflammatory response syn drome) ([facility]) 05/02/2017 Thrombocytopenia ([facility]) 05/02/2017 Bilateral low back pain without sciatica [...] encounter Miscellaneous Notes * Telephone Encounter - Colin Krause MD - 08/23/2017 12:35 PM EDT Pending Prescriptions: Disp Refills HYDROcodone-acetaminophen 5-325 mg per tab*90 Tab 0 Sig: Take 1 Tab by mouth every 6 hours as needed for Pain, Mild. * Telephone Encounter - Valeria Cruz OSA - 08/23/2017 11:28 AM EDT Patient calling regarding script. Will be out today. Patient was not happy on phone, kept saying "he is really lousy with his aftercare, this shouldn't take over a week to have medication" and that she will just "hobble around in pain until they decideto give me my medication." I told her I would put another message in, she stated, "you did that last week" and hung up the phone. Pt ph [phone] * Telephone Encounter - Annie Anne, RN - 08/23/2017 10:20 AM EDT Pending Prescriptions: Disp Refills HYDROcodone-acetaminophen 5-325 mg per tab*90 Tab 0 Sig: Take 1 Tab by mouth every 6 hours as needed for Pain, Mild. * Telephone Encounter - Jovanna Altamirano, YONNY - 08/20/2017 9:56 AM EDT Patient calling to check on the status of her rx, she states she will be out very soon * Telephone Encounter - Annie Anne RN - 08/17/2017 1:21 PM EDT Pending Prescriptions: Disp Refills HYDROcodone-acetaminophen 5-325 mg per tab*90 Tab 0 Sig: Take 1 Tab by mouth every 6 hours as needed for Pain, Mild. * Telephone Encounter - Rahel Aragon, YONNY - 08/16/2017 11:24 AM EDT Pt wants refill on hydrocodone, call and mail to [address] [place] [address] [address] [place] [address]. in this encounter Plan of Treatment Upcoming Encounters Date Type Specialty Care Team Description 10/05/2017 Office Visit Orthopedic Surgery Colin Krause MD [address] [place] [address] 11/01/2017 Office Visit Cardiology Sterling Lockhart MD [address] [place] [address] [phone] Health Maintenance Due Date Last Done Comments [...] of this encounter Implants Implanted Type Area Label Printer Device Identifier Expiration Date Model / Serial / Lot Dbx 10cc 297014 - [id number] - [id number] Implanted:Qty : 1 on 01/11/2015 by Colin Krause MD Tissue - Human N/A: Spine Lumbar MUSCULOSKELETAL TRANSPLANT FND 08/18/2016 648024 / [id number] / Dbx 10 076391 - [id number] - [id number] Implanted:Qty : 1 on 01/11/2015 by Colin Krause MD Tissue - Human N/A: Spine Lumbar MUSCULOSKELETAL TRANSPLANT FND 08/18/2016 106973 / [id number] / Chip Cancellous 30cc 571955 - [id number] Implanted:Qty : 1 on 04/30/2017 by Colin Krause MD Tissue - Human N/A: Spine Lumbar MUSCULOSKELETAL TRANSPLANT FND 01/20/2020 851527 / / Chip Cancellous 90cc [id number] - [id number] Implanted:Qty : 1 on 04/30/2017 by Colin Krause MD Tissue - Human N/A: Spine Lumbar MUSCULOSKELETAL TRANSPLANT FND 01/29/2018 022191 / / Viper2 Straight [id number] Cocr - [id number] Implanted:Qty : 2 on 01/11/2015 by Colin Krause MD N/A: Spine Lumbar JNJ : DEPUY SPINE [id number] / / Screw 6x40 Poly Si [id number] - [id number] Implanted:Qty : 1 on 01/11/2015 by Colin Krause MD N/A: Spine Lumbar JNJ : ETHICON CARDIOVATIONS [id number] / / Screw 6x40 Ti Uni [id number] - [id number] Implanted:Qty : 8 on 01/11/2015 by Colin Krause MD N/A: Spine Lumbar JNJ : ETHICON CARDIOVATIONS [id number] / / Screw 5x40 Ti Uni [id number] - [id number] Implanted:Qty : 2 on 01/11/2015 by Colin Krause MD N/A: Spine Lumbar JNJ : ETHICON CARDIOVATIONS [id number] / / Screw 6x45 Ti Uni [id number] - [id number] Implanted:Qty : 6 on 01/11/2015 by Colin Krause MD N/A: Spine Lumbar JNJ : ETHICON CARDIOVATIONS [id number] / / Expedium Ti Sfx 5.5 Lat A2 - [id number] Implanted:Qty : 1 on 01/11/2015 by Colin Krause MD N/A: Spine Lumbar JNJ : ETHICON CARDIOVATIONS [id number] / / Screw Implanted:Qty : 2 on 04/30/2017 by Colin Krause MD N/A: Spine Lumbar SYNTHES : DEPUY [id number] / / Screw Implanted:Qty : 2 on 04/30/2017 by Colin Krause MD N/A: Spine Lumbar SYNTHES : DEPUY 1797 / / Cage Implanted:Qty : 4 on 04/30/2017 by Colin Krause MD N/A: Spine Lumbar SYNTHES : DEPUY 1878-21-111 / / Connector 5.5 Du [id number] - [id number] Implanted:Qty : 4 on 04/30/2017 by Colin Krause MD N/A: Spine Lumbar JNJ : ETHICON CARDIOVATIONS [id number] / / Uriel 120mm [id number] - [id number] Implanted:Qty : 2 on 04/30/2017 by Colin Krause MD N/A: Spine Lumbar JNJ : ETHICON CARDIOVATIONS [id number] / / Screw Set Sng Inner [id number] - [id number] Implanted:Qty : 6 on 04/30/2017 by Colin Krause MD N/A: Spine Lumbar JNJ : ETHICON CARDIOVATIONS [id number] / / Expedium Ti Sfx 5.5 Lat A6 - [id number] Implanted:Qty : 2 on 04/30/2017 by Colin Krause MD N/A: Spine Lumbar JNJ : ETHICON CARDIOVATIONS [id number] / / Screw 7x45 Ti Uni [id number] - [id number] Implanted:Qty : 4 on 01/11/2015 by Colin Krause MD Explanted:Qty : 2 on 04/30/2017 N/A: Spine Lumbar JNJ : DEPUY SPINE [id number] / / Screw Set Sng Inner [id number] - [id number] Implanted:Qty : 20 on 01/11/2015 by Colin Krause MD Explanted:Qty : 4 on 04/30/2017 N/A: Spine Lumbar JNJ : DEPUY SPINE [id number] / / Graft Infuse Bone Lg [id number] - [id number] Implanted:Qty : 1 on 04/30/2017 by Colin Krause MD N/A: Spine Lumbar [employer] : NEURO CARE 06/10/2018 [id number] / / as of this encounter Insurance Payer Benefit Plan / Group Subscriber ID Type Phone Address MEDICARE MEDICARE A AND B [id number] Medicare [place], [place] AARP AAR [id number] [address] [place] [address] as of this encounter
--- OUTSIDE RECORDS SUMMARY | 2023-02-08 02:14 | External Medical Summary | Summary of Care ---
Author Name Unknown Organization [place] [address] Phone Care Team Providers Care Tractor Mechanic Apprentice Name Role Phone Casey Rodgers MD Primary Care Provider + [phone] Encounter Details Date Type Department Care Team Description 05/21/2017 Scan Encounter Orthopaedics Spine Surgery, [place] [address] [place] [address] Colin Krause MD [address] [place] [address] <No scans attached> Allergies Active Allergy Reactions [...] Tab by mouth daily. 12 02/24/2017 Active AMITIZA 8 MCG Capsule Take 1 Cap by mouth 2 times a day. 5 02/03/2017 Active lactulose (CONSTULOSE) 10 GM/15ML solution Take 15 mL by mouth as needed. 1 02/03/2017 Active lisinopril (PRINIVIL) 10 MG Tablet Take 1 Tab by mouth daily. Patient reports she takes as needed. 30 Tab 11 02/26/2017 Active oxyCODONE (OXY IR) 5 MG immediate release tablet Take 1-2 tabs every 4 hours as needed for pain 90 Tab 0 05/17/2017 Active as of this encounter Active Problems Problem Noted Date Postoperative anemia due to acute blood loss [...] Encounters Date Type Specialty Care Team Description 06/01/2017 Office Visit [facility] [address] [facility] [place] [address] [phone] 11/01/2017 Office Visit Cardiology Sterling Lockhart MD [address] [place] [address] [phone] Health Maintenance Due Date Last Done Comments BREAST CANCER SCREENING DISC USSION YEARLY AGES 40-75 1984 COLONOSCOPY-EVERY 10 YRS AGE S 50-75 1994 PNEUMOCOCCAL ADULT 65 YRS AN D OVER (1 of 2 - PCV13) 2009 TETANUS EVERY 10 YEARS-TDAP (BOOSTRIX OR ADACEL) SUGGESTED IF NOT RECEIVED IN THE PAST. 2009 *ADVANCE DIRECTIVE NOT ON FILE 09/08/2014 *DEPRESSION SCREENING, CLAUDEUA [place] FOR PTS 18 AND OVER 09/08/2014 Influenza Vaccine (FLU shot) (#1) 2016 LIPID SCREEN EVERY 5 YRS-WOM EN AGE 45-75 09/05/2019 09/04/2014 DIABETES SCREEN EVERY 3 YRS- AGE 45 AND ABOVE 05/03/2020 05/03/2017, 05/02/2017, 05/02/2017, Additional history exists DXA-SCREENING EVERY 7 YRS-US E SMARTSET# 3348 TO ORDER 12/26/2021 12/26/2014 as of this encounter Implants Implanted Type Area Rn Heart Device Identifier Expiration Date Model / Serial / Lot Dbx [facility] 500839 - [id number] - [id number] Implanted:Qty : 1 on 01/11/2015 by Colin Krause MD Tissue - Human N/A: Spine Lumbar MUSCULOSKELETAL TRANSPLANT FND 08/18/2016 670558 / [id number] / Dbx [facility] 654523 - [id number] - [id number] Implanted:Qty : 1 on 01/11/2015 by Colin Krause MD Tissue - Human N/A: Spine Lumbar MUSCULOSKELETAL TRANSPLANT FND 08/18/2016 627331 / [id number] / Chip Cancellous 30cc 657406 - [id number] Implanted:Qty : 1 on 04/30/2017 by Colin Krause MD Tissue - Human N/A: Spine Lumbar MUSCULOSKELETAL TRANSPLANT FND 01/20/2020 536440 / / Chip Cancellous 90cc 368856 - [id number] Implanted:Qty : 1 on 04/30/2017 by Colin Krause MD Tissue - Human N/A: Spine Lumbar MUSCULOSKELETAL TRANSPLANT FND 01/29/2018 225774 / / Viper2 Straight [id number] Cocr - [id number] Implanted:Qty : 2 on 01/11/2015 by Colin Krause MD N/A: Spine Lumbar JNJ : DEPUY SPINE [id number] / / Screw 6x40 Poly Si [id number] - [id number] Implanted:Qty : 1 on 01/11/2015 by Colin Krause MD N/A: Spine Lumbar JNJ : ETHICON CARDIOVATIONS [id number] / / Screw 6x40 Ti Uni [id number] - [id number] Implanted:Qty : 8 on 01/11/2015 by Colin Krause MD N/A: Spine Lumbar JNJ : ETHICON CARDIOVATIONS [id number] / / Screw 5x40 Ti Uni [id number] - [id number] Implanted:Qty : 2 on 01/11/2015 by Colin Krause MD N/A: Spine Lumbar JNJ : ETHICON CARDIOVATIONS [id number] / / Screw 6x45 Ti Uni [id number] - [id number] Implanted:Qty : 6 on 01/11/2015 by Colin Krause MD N/A: Spine Lumbar JNJ : ETHICON CARDIOVATIONS [id number] / / Expedium Ti Sfx 5.5 Lat A2 - [id number] Implanted:Qty : 1 on 01/11/2015 by Colin Krause MD N/A: Spine Lumbar JNJ : ETHICON CARDIOVATIONS [id number] / / Screw Implanted:Qty : 2 on 04/30/2017 by Colin Krause MD N/A: Spine Lumbar SYNTHES : DEPUY 1797-56563 / / Screw Implanted:Qty : 2 on 04/30/2017 by Colin Krause MD N/A: Spine Lumbar SYNTHES : DEPUY 1797-12870 / / Cage Implanted:Qty : 4 on 04/30/2017 by Colin Krause MD N/A: Spine Lumbar SYNTHES : DEPUY 1878-21-111 / / Connector 5.5 Du [id number] - [id number] Implanted:Qty : 4 on 04/30/2017 by Colin Krause MD N/A: Spine Lumbar JNJ : ETHICON CARDIOVATIONS [id number] / / Uriel 120mm [id number] - [id number] Implanted:Qty : 2 on 04/30/2017 by Colin Krause MD N/A: Spine Lumbar JNJ : ETHICON CARDIOVATIONS [id number] / / Screw Set Sng Inner [id number] - [id number] Implanted:Qty : 6 on 04/30/2017 by Colin Krause MD N/A: Spine Lumbar JNJ : ETHICON CARDIOVATIONS [id number] / / Expedium Ti Sfx 5.5 Lat A6 - [id number] Implanted:Qty : 2 on 04/30/2017 by Colin Krause MD N/A: Spine Lumbar JNJ : ETHICON CARDIOVATIONS [id number] / / Screw 7x45 Ti Uni [id number] - [id number] Implanted:Qty : 4 on 01/11/2015 by Colin Krause MD Explanted:Qty : 2 on 04/30/2017 N/A: Spine Lumbar JNJ : DEPUY SPINE [id number] / / Screw Set Sng Inner [id number] - [id number] Implanted:Qty : 20 on 01/11/2015 by Colin Krause MD Explanted:Qty : 4 on 04/30/2017 N/A: Spine Lumbar JNJ : DEPUY SPINE [id number] / / Graft Infuse Bone Lg 2103565 - [id number] Implanted:Qty : 1 on 04/30/2017 by Colin Krause MD N/A: Spine Lumbar [employer] : NEURO CARE 06/10/2018 [id number] / / as of this encounter Insurance Payer Benefit Plan / Group Subscriber ID Type Phone Address MEDICARE MEDICARE A AND B [id number] Medicare [place] [id number] [address] [place] [address] as of this encounter
--- OUTSIDE RECORDS SUMMARY | 2023-02-08 02:14 | External Medical Summary ---
Author Name UNSPECIFIED Organization [facility] History of Encounters Reason for Assessment: Start of care - f urther visits planned Inpatient discharge facility: Past 14 Da ys: Discharged From Short Stay Acute Hospital Most Recent Inpatient Discharge Date: Functional Assessment High Risk Factor: Smoking Patient Living Situation: Patient lives with other person(s) in the home: Around the clock Frequency Of Pain Interferin g With Patient's Activity Or Movement: Daily, but not constantly Does this patient have a Ris k of Developing Pressure Ulcers: No Bowel Incontinence Frequency: Very rarel y or never has bowel incontinence Cognitive and Behavioral and Psychiatric Symptoms: None Current Ability: Bathing: able to partic ipate in bathing self in shower or tub, but requires presence of another person throughout the bath for assistance or supervision. Current Ability: Ambulation: Requires us e of a two-handed device (e.g., walker or crutches) to walk alone on a level surface and/or requires human supervision or assistance to negotiate stairs or steps or uneven surfaces. Has Patient Had A Multi-fact or Fall Risk Assessment? Yes, and it indicates a risk for falls Current: Management Of Oral Medications: Able to independently take the correct oral medication(s) and proper dosage(s) at the correct time How Often Recv ADL Or IADL A ssistance From Any: At least daily Procedures Regimen Change in Past 14 Da ys: ICD Code 1: M47.817, Spondyls w/o myelopathy or radiculopathy, lumbosacr region Regimen Change in Past 14 Da ys: ICD Code 2: D62., Acute posthemorrhagic anemia Therapies Received at Home: None Problems Primary Home Care Diagnosis ICD Code: Z4 7.89, Encounter for other orthopedic aftercare Home Care Diagnosis 1: ICD Code: M47.817 , Spondyls w/o myelopathy or radiculopathy, lumbosacr region Home Care Diagnosis 1: Severity Ratin Home Care Diagnosis 2: ICD Code: I10., E ssential (primary) hypertension Home Care Diagnosis 2: Severity Ratin Surgical wound: Yes, patient has at least one (observable) surgical wound Has Skin Lesion Or Open Wound: No Inpatient Stay Within Last 1 4 Days: ICD Code 1: M47.817, Spondyls w/o myelopathy or radiculopathy, lumbosacr region Inpatient Stay Within Last 1 4 Days: ICD Code 2: D62., Acute posthemorrhagic anemia
--- OUTSIDE RECORDS SUMMARY | 2023-02-08 02:14 | External Medical Summary | Summary of Care ---
Author Name Unknown Organization [place] [address] Phone Care Team Providers Care Swim Instructor Name Role Phone Casey Rodgers MD Primary Care Provider [phone] Reason for Visit * Reason Comments Cardiology Study Encounter Details Date Type Department Care Team Description 11/30/2017 Telephone Cardiology, [facility] [address] [place] [address] Sterling Lockhart MD [address] [place] [address] Cardiology Study Allergies Active Allergy Reactions Severity Noted Date [...] 500-125 MG-UNIT TABS Take by mouth. Active Vyfmgvb-Knkdkjqsyroxd-H affeine (EXCEDRIN MIGRAINE) 250-250-65 MG per tablet [...] encounter Miscellaneous Notes * Telephone Encounter - Camille Atkinson RN - 11/30/2017 10:35 AM EDT Echo report last completed on 03/20/16. Faxed as requested. Successful transmission received. * Telephone Encounter - Ann Marie Oreilly, YONNY - 11/30/2017 10:22 AM EDT The following fax request has been received: Name of caller: Janice Information requested to be faxed/received via fax: Most recent echo report for anesthesia Fax to: [phone] Attention to: Janice Was this information faxed previously?: no If so, what date(s) was it faxed?: If so, what number was it faxed to?: Any additional information?: Dr. Michael is requesting most recent echo report for patients upcoming surgery on 12/06/2017 in this encounter Plan of Treatment Upcoming Encounters Date Type Specialty Care Team Description 11/07/2018 Office Visit Cardiology Sterling Lockhart MD [address] [facility] [place] [address] [phone] Health Maintenance Due Date Last Done Comments [...] shot) (#1) 2017 LIPID SCREEN EVERY 5 YRS-WOM EN AGE 45-75 09/05/2019 09/04/2014 DIABETES SCREEN EVERY 3 YRS- AGE 45 AND ABOVE 05/03/2020 05/03/2017, 05/02/2017, 05/02/2017, Additional history exists DXA-SCREENING EVERY 7 YRS-US E SMARTSET# 3348 TO ORDER 12/26/2021 12/26/2014 as of this encounter Implants Implanted Type Area Take Out Waiter Device Identifier Expiration Date Model / Serial / Lot Dbx 10cc [id number] - [id number] - [id number] Implanted:Qty : 1 on 01/11/2015 by Colin Krause MD Tissue - Human N/A: Spine Lumbar MUSCULOSKELETAL TRANSPLANT FND 08/18/2016 159904 / [id number] / Dbx 10cc 432416 - [id number] - [id number] Implanted:Qty : 1 on 01/11/2015 by Colin Krause MD Tissue - Human N/A: Spine Lumbar MUSCULOSKELETAL TRANSPLANT FND 08/18/2016 746984 / [id number] / Chip Cancellous 30cc 557538 - [id number] Implanted:Qty : 1 on 04/30/2017 by Colin Krause MD Tissue - Human N/A: Spine Lumbar MUSCULOSKELETAL TRANSPLANT FND 01/20/2020 643419 / / Chip Cancellous 90cc 899659 - [id number] Implanted:Qty : 1 on 04/30/2017 by Colin Krause MD Tissue - Human N/A: Spine Lumbar MUSCULOSKELETAL TRANSPLANT FND 01/29/2018 900260 / / Viper2 Straight [id number] Cocr - [id number] Implanted:Qty : 2 on 01/11/2015 by Colin Krause MD N/A: Spine Lumbar JNJ : DEPUY SPINE [id number] / / Screw 6x40 Poly Si [id number] - [id number] Implanted:Qty : 1 on 01/11/2015 by Colin Krause MD N/A: Spine Lumbar JNJ : ETHICON CARDIOVATIONS [id number] / / Screw 6x40 Ti Uni [id number] - [id number] Implanted:Qty : 8 on 01/11/2015 by Colin Karuse MD N/A: Spine Lumbar JNJ : ETHICON CARDIOVATIONS [id number] / / Screw 5x40 Ti Uni [id number] - [id number] Implanted:Qty : 2 on 01/11/2015 by Colin Krause MD N/A: Spine Lumbar JNJ : ETHICON CARDIOVATIONS [id number] / / Screw 6x45 Ti Uni [id number] - [id number] Implanted:Qty : 6 on 01/11/2015 by Colin Krause MD N/A: Spine Lumbar JNJ : ETHICON CARDIOVATIONS [id number] / / Expedium Ti Sfx 5.5 Lat A2 - [id number] Implanted:Qty : 1 on 01/11/2015 by Colin Krause MD N/A: Spine Lumbar JNJ : ETHICON CARDIOVATIONS [id number] / / Screw Implanted:Qty : 2 on 04/30/2017 by Colin Krause MD N/A: Spine Lumbar SYNTHES : DEPUY [id number] / / Screw Implanted:Qty : 2 on 04/30/2017 by Colin Krause MD N/A: Spine Lumbar SYNTHES : DEPUY 17911-18-860 / / Cage Implanted:Qty : 4 on 04/30/2017 by Colin Krause MD N/A: Spine Lumbar SYNTHES : DEPUY 1878111 / / Connector 5.5 Du [id number] - [id number] Implanted:Qty : 4 on 04/30/2017 by Colin Krause MD N/A: Spine Lumbar JNJ : ETHICON CARDIOVATIONS [id number] / / Uriel 120mm [id number] - [id number] Implanted:Qty : 2 on 04/30/2017 by Colin Krause MD N/A: Spine Lumbar JNJ : ETHICON CARDIOVATIONS [id number] / / Screw Set Sng Inner [id number] - [id number] Implanted:Qty : 6 on 04/30/2017 by Colin Krause MD N/A: Spine Lumbar JNJ : ETHICON CARDIOVATIONS [id number] / / Expedium Ti Sfx 5.5 Lat A6 - [id number] Implanted:Qty : 2 on 04/30/2017 by Colin Krause MD N/A: Spine Lumbar JNJ : ETHICON CARDIOVATIONS [id number] / / Screw 7x45 Ti Uni [id number] - [id number] Implanted:Qty : 4 on 01/11/2015 by Colin Krause MD Explanted:Qty : 2 on 04/30/2017 N/A: Spine Lumbar JNJ : DEPUY SPINE [id number] / / Screw Set Sng Inner [id number] - [id number] Implanted:Qty : 20 on 01/11/2015 by Colin Krause MD Explanted:Qty : 4 on 04/30/2017 N/A: Spine Lumbar JNJ : DEPUY SPINE [id number] / / Graft Infuse Bone Lg 7663424 - [id number] Implanted:Qty : 1 on 04/30/2017 by Colin Krause MD N/A: Spine Lumbar [employer] : NEURO CARE 06/10/2018 [id number] / / as of this encounter
--- OUTSIDE RECORDS SUMMARY | 2023-02-08 02:14 | External Medical Summary | Summary of Care ---
Author Name Unknown Organization [place] [address] Phone Care Team Providers Care Disk And Tape Machine Tender Name Role Phone Casey Rodgers MD Primary Care Provider [phone] Reason for Visit * Reason Comments Information Encounter Details Date Type Department Care Team Description 07/20/2017 Telephone Orthopaedics Spine Surgery, [place] [address] [place] [address] Colin Krause MD [address] [place] [address] Information Allergies Active Allergy Reactions Severity Noted Date [...] inflammatory response syn drome) (HCC) 05/02/2017 Thrombocytopenia ([facility]) 05/02/2017 Bilateral low back pain without sciatica [...] encounter Miscellaneous Notes * Telephone Encounter - Alice Sierra RN - 07/20/2017 9:50 AM EDT rx mailed to [place] address in this encounter Plan of Treatment Upcoming Encounters Date Type Specialty Care Team Description 10/05/2017 Office Visit Orthopedic Surgery Colin Krause MD [address] [facility] [place] [address] [phone] 11/01/2017 Office Visit Cardiology Sterling Lockhart MD [address] [facility] [place] [address] [phone] Health Maintenance Due Date Last Done Comments DTaP,Tdap,and Td Vaccines (1 - Tdap) 12/21/1964 BREAST CANCER SCREENING DISC USSION YEARLY AGES 40-75 1984 PNEUMOCOCCAL ADULT 65 YRS AN D OVER (1 of 2 - PCV13) 2009 *ADVANCE DIRECTIVE NOT ON FILE 09/08/2014 *DEPRESSION SCREENING, ANNUA L FOR PTS 18 AND OVER 09/08/2014 Influenza [...] of this encounter Implants Implanted Type Area Scale Reclamation Tender Device Identifier Expiration Date Model / Serial / Lot Dbx 10 956571 - [id number] - [id number] Implanted:Qty : 1 on 01/11/2015 by Colin Krause MD Tissue - Human N/A: Spine Lumbar MUSCULOSKELETAL TRANSPLANT FND 08/18/2016 108789 / [id number] / Dbx 10 194475 - [id number] 988534 - [id number] Implanted:Qty : 1 on 01/11/2015 by Colin Krause MD Tissue - Human N/A: Spine Lumbar MUSCULOSKELETAL TRANSPLANT FND 08/18/2016 361190 / [id number] / Chip Cancellous 30cc 379427 - [id number] Implanted:Qty : 1 on 04/30/2017 by Colin Krause MD Tissue - Human N/A: Spine Lumbar MUSCULOSKELETAL TRANSPLANT FND 01/20/2020 614469 / / Chip Cancellous 90cc 248359 - [id number] Implanted:Qty : 1 on 04/30/2017 by Colin Krause MD Tissue - Human N/A: Spine Lumbar MUSCULOSKELETAL TRANSPLANT FND 01/29/2018 677709 / / Viper2 Straight [id number] Cocr - [id number] Implanted:Qty : 2 on 01/11/2015 by Colin Krause MD N/A: Spine Lumbar JNJ : DEPUY SPINE [id number] / / Screw 6x40 Poly Si [id number] - [id number] Implanted:Qty : 1 on 01/11/2015 by Colin Krause MD N/A: Spine Lumbar JNJ : ETHICON CARDIOVATIONS 889345878 / / Screw 6x40 Ti Uni [id number] - [id number] Implanted:Qty : 8 on 01/11/2015 by Colin Krause MD N/A: Spine Lumbar JNJ : ETHICON CARDIOVATIONS 140721850 / / Screw 5x40 Ti Uni [id number] - [id number] Implanted:Qty : 2 on 01/11/2015 by Colin Krause MD N/A: Spine Lumbar JNJ : ETHICON CARDIOVATIONS 163461644 / / Screw 6x45 Ti Uni [id number] - [id number] Implanted:Qty : 6 on 01/11/2015 by Colin Krause MD N/A: Spine Lumbar JNJ : ETHICON CARDIOVATIONS 778831219 / / Expedium Ti Sfx 5.5 Lat A2 - [id number] Implanted:Qty : 1 on 01/11/2015 by Colin Krause MD N/A: Spine Lumbar JNJ : ETHICON CARDIOVATIONS [id number] / / Screw Implanted:Qty : 2 on 04/30/2017 by Colin Krause MD N/A: Spine Lumbar SYNTHES : DEPUY 1797-63984 / / Screw Implanted:Qty : 2 on 04/30/2017 by Colin Krause MD N/A: Spine Lumbar SYNTHES : DEPUY 1797870 / / Cage Implanted:Qty : 4 on 04/30/2017 by Colin Krause MD N/A: Spine Lumbar SYNTHES : DEPUY 1878111 / / Connector 5.5 Du 007943514 - [id number] Implanted:Qty : 4 on 04/30/2017 by Colin Krause MD N/A: Spine Lumbar JNJ : ETHICON CARDIOVATIONS 586362921 / / Uriel 120mm [id number] - [id number] Implanted:Qty : 2 on 04/30/2017 by Colin Krause MD N/A: Spine Lumbar JNJ : ETHICON CARDIOVATIONS 248824832 / / Screw Set Sng Inner 830339107 - [id number] Implanted:Qty : 6 on 04/30/2017 by Colin Krause MD N/A: Spine Lumbar JNJ : ETHICON CARDIOVATIONS 403540521 / / Expedium Ti Sfx 5.5 Lat A6 - [id number] Implanted:Qty : 2 on 04/30/2017 by Colin Krause MD N/A: Spine Lumbar JNJ : ETHICON CARDIOVATIONS 670339170 / / Screw 7x45 Ti Uni [id number] - [id number] Implanted:Qty : 4 on 01/11/2015 by Colin Krause MD Explanted:Qty : 2 on 04/30/2017 N/A: Spine Lumbar JNJ : DEPUY SPINE 249721793 / / Screw Set Sng Inner [id number] - [id number] Implanted:Qty : 20 on 01/11/2015 by Colin Krause MD Explanted:Qty : 4 on 04/30/2017 N/A: Spine Lumbar JNJ : DEPUY SPINE 740547074 / / Graft Infuse Bone Lg 4441837 - [id number] Implanted:Qty : 1 on 04/30/2017 by Colin Krause MD N/A: Spine Lumbar [employer] : NEURO CARE 06/10/2018 [id number] / / as of this encounter Insurance Payer Benefit Plan / Group Subscriber ID Type Phone Address MEDICARE MEDICARE A AND B [id number] Medicare [employer] [employer] [id number] [address] [place] [address] as of this encounter
--- OUTSIDE RECORDS SUMMARY | 2023-02-08 02:14 | External Medical Summary | Summary of Care ---
Author Name Unknown Organization [place] [address] Phone Care Team Providers Care Cooling Pan Tender Name Role Phone Casey Rodgers MD Primary Care Provider [phone] Encounter Details Date Type Department Care Team Description 05/26/2017 Documentation Orthopaedics Spine Surgery, [place] [address] [place] [address] Colin Krause MD [address] [place] [address] Allergies Active Allergy Reactions Severity Noted Date [...] Orthopedic Surgery Colin Krause MD [address] [facility] [place] [address] 11/01/2017 Office Visit Cardiology Sterling Lockhart MD [address] [place] [address] [phone] Health Maintenance Due Date Last Done Comments [...] of this encounter Implants Implanted Type Area Business Specialist Device Identifier Expiration Date Model / Serial / Lot Dbx 10 [id number] - [id number] - [id number] Implanted:Qty : 1 on 01/11/2015 by Colin Krause MD Tissue - Human N/A: Spine Lumbar MUSCULOSKELETAL TRANSPLANT FND 08/18/2016 345013 / [id number] / Dbx 10 615609 - [id number] - [id number] Implanted:Qty : 1 on 01/11/2015 by Colin Krause MD Tissue - Human N/A: Spine Lumbar MUSCULOSKELETAL TRANSPLANT FND 08/18/2016 941085 / [id number] / Chip Cancellous 30cc 264278 - [id number] Implanted:Qty : 1 on 04/30/2017 by Colin Krause MD Tissue - Human N/A: Spine Lumbar MUSCULOSKELETAL TRANSPLANT FND 01/20/2020 968819 / / Chip Cancellous 90cc 100165 - [id number] Implanted:Qty : 1 on 04/30/2017 by Colin Krause MD Tissue - Human N/A: Spine Lumbar MUSCULOSKELETAL TRANSPLANT FND 01/29/2018 882292 / / Viper2 Straight Tot589cf Cocr - [id number] Implanted:Qty : 2 on 01/11/2015 by Colin Krause MD N/A: Spine Lumbar JNJ : DEPUY SPINE [id number] / / Screw 6x40 Poly Si [id number] - [id number] Implanted:Qty : 1 on 01/11/2015 by Colin Krause MD N/A: Spine Lumbar JNJ : ETHICON CARDIOVATIONS [id number] / / Screw 6x40 Ti Uni [id number] - [id number] Implanted:Qty : 8 on 01/11/2015 by Colin Krause MD N/A: Spine Lumbar JNJ : ETHICON CARDIOVATIONS [id number] / / Screw 5x40 Ti Uni [id number] - [id number] Implanted:Qty : 2 on 01/11/2015 by Colin Krause MD N/A: Spine Lumbar JNJ : ETHICON CARDIOVATIONS 452557767 / / Screw 6x45 Ti Uni [id number] - [id number] Implanted:Qty : 6 on 01/11/2015 by Colin Krause MD N/A: Spine Lumbar JNJ : ETHICON CARDIOVATIONS [id number] / / Expedium Ti Sfx 5.5 Lat A2 - [id number] Implanted:Qty : 1 on 01/11/2015 by Colin Krause MD N/A: Spine Lumbar JNJ : ETHICON CARDIOVATIONS [id number] / / Screw Implanted:Qty : 2 on 04/30/2017 by Colin Krause MD N/A: Spine Lumbar SYNTHES : DEPUY 1797-40085 / / Screw Implanted:Qty : 2 on 04/30/2017 by Colin Krause MD N/A: Spine Lumbar SYNTHES : DEPUY 1797-12870 / / Cage Implanted:Qty : 4 on 04/30/2017 by Colin Krause MD N/A: Spine Lumbar SYNTHES : DEPUY 1878-111 / / Connector 5.5 Du 194898273 - [id number] Implanted:Qty : 4 on 04/30/2017 by Colin Krause MD N/A: Spine Lumbar JNJ : ETHICON CARDIOVATIONS 453701992 / / Uriel 120mm [id number] - [id number] Implanted:Qty : 2 on 04/30/2017 by Colin Krause MD N/A: Spine Lumbar JNJ : ETHICON CARDIOVATIONS 131173721 / / Screw Set Sng Inner [id number] - [id number] Implanted:Qty : 6 on 04/30/2017 by Colin Krause MD N/A: Spine Lumbar JNJ : ETHICON CARDIOVATIONS 126155964 / / Expedium Ti Sfx 5.5 Lat A6 - [id number] Implanted:Qty : 2 on 04/30/2017 by Colin Krause MD N/A: Spine Lumbar JNJ : ETHICON CARDIOVATIONS 268385948 / / Screw 7x45 Ti Uni 238212848 - [id number] Implanted:Qty : 4 on 01/11/2015 by Colin Krause MD Explanted:Qty : 2 on 04/30/2017 N/A: Spine Lumbar JNJ : DEPUY SPINE 032259148 / / Screw Set Sng Inner [id number] - [id number] Implanted:Qty : 20 on 01/11/2015 by Colin Krause MD Explanted:Qty : 4 on 04/30/2017 N/A: Spine Lumbar JNJ : DEPUY SPINE 395404028 / / Graft Infuse Bone Lg 5934374 - [id number] Implanted:Qty : 1 on 04/30/2017 by Colin Krause MD N/A: Spine Lumbar [employer] : NEURO CARE 06/10/2018 [id number] / / as of this encounter Insurance Payer Benefit Plan / Group Subscriber ID Type Phone Address MEDICARE MEDICARE A AND B [id number] Medicare [place] [id number] [address] [place] [address] as of this encounter
--- OUTSIDE RECORDS SUMMARY | 2023-02-08 02:14 | External Medical Summary ---
Author Name UNSPECIFIED Organization [facility] History of Encounters Reason for Assessment: Discharge from [facility] Date of Last Home Visit: 06/03/2017 Inpatient Facility where the patient been admitted: No inpatient facility admission Discharge Disposition: Patient remained in the community (without formal assistive services) Functional Assessment Frequency Of Pain Interferin g With Patient's Activity Or Movement: Daily, but not constantly Bowel Incontinence Frequency: Very rarel y or never has bowel incontinence Cognitive and Behavioral and Psychiatric Symptoms: None Current Ability: Bathing: With the use o f devices, is able to bathe self in shower or tub independently, including getting in and out of the tub/shower. Current Ability: Ambulation: Requires us e of a two-handed device (e.g., walker or crutches) to walk alone on a level surface and/or requires human supervision or assistance to negotiate stairs or steps or uneven surfaces. Current: Management Of Oral Medications: Able to independently take the correct oral medication(s) and proper dosage(s) at the correct time Problems Surgical wound: Yes, patient has at least one (observable) surgical wound
--- OUTSIDE RECORDS SUMMARY | 2023-02-08 02:14 | External Medical Summary | Summary of Care ---
Author Name Unknown Organization [place] [address] Phone Care Team Providers Care Computer Graphics Illustrator Name Role Phone Casey Rodgers MD Primary Care Provider [phone] Reason for Visit * Reason Comments MEDICATION REFILL Encounter Details Date Type Department Care Team Description [facility]16[facility] [address] [place], [place] [id number] Colin Krause MD [address] [place], [place] [id number] Allergies Active Allergy Reactions Severity Noted Date [...] encounter Miscellaneous Notes * Telephone Encounter - Linda Jarquin PA-C - 08/24/2017 2:34 PM EDT Needs to be taken care of by Dr. Krause She [place] out of [place] It is in his inbox * Telephone Encounter - Jovanna Altamirano OSA - 08/24/2017 1:15 PM EDT Patient calling again asking on the statusof her refill She says If you aren't going to approve, let her know and she will call her PCP Please follow up with patient [phone] * Telephone Encounter - Colin Krause MD - 08/23/2017 12:35 PM EDT Pending Prescriptions: Disp Refills HYDROcodone-acetaminophen 5-325 mg per tab*90 Tab 0 Sig: Take 1 Tab by mouth every 6 hours as needed for Pain, Mild. * Telephone Encounter - Valeria Cruz YONNY - 08/23/2017 11:28 AM EDT Patient calling [...] and hung up the phone. Pt ph [phone] * Telephone Encounter - Annie Anne RN - 08/23/2017 10:20 AM EDT Pending [...] Pain, Mild. * Telephone Encounter - Rahel Aragon OSA - 08/16/2017 11:24 AM EDT Pt wants refill on hydrocodone, call and mail to [address] [place] [address] [address] [place] [address]. in this encounter Plan of Treatment Upcoming Encounters Date Type Specialty Care Team Description 10/05/2017 Office Visit Orthopedic Surgery Colin Krause MD [address] [facility] [place] [address] 11/01/2017 Office Visit Cardiology Sterling Lockhart MD [address] [facility] [place] [address] Health Maintenance Due Date Last Done [...] of this encounter Implants Implanted Type Area Back Sizer Device Identifier Expiration Date Model / Serial / Lot Dbx 10cc 902481 - [id number] - [id number] Implanted:Qty : 1 on 01/11/2015 by Colin Krause MD Tissue - Human N/A: Spine Lumbar MUSCULOSKELETAL TRANSPLANT FND 08/18/2016 376178 / [id number] / Dbx 10cc 984984 - [id number] - [id number] Implanted:Qty : 1 on 01/11/2015 by Colin Krause MD Tissue - Human N/A: Spine Lumbar MUSCULOSKELETAL TRANSPLANT FND 08/18/2016 747386 / [id number] / Chip Cancellous 30cc 350261 - [id number] Implanted:Qty : 1 on 04/30/2017 by Colin Krause MD Tissue - Human N/A: Spine Lumbar MUSCULOSKELETAL TRANSPLANT FND 01/20/2020 996243 / / Chip Cancellous 90cc 985454 - [id number] Implanted:Qty : 1 on 04/30/2017 by Colin Krause MD Tissue - Human N/A: Spine Lumbar MUSCULOSKELETAL TRANSPLANT FND 01/29/2018 842606 / / Viper2 Straight [id number] Cocr - [id number] Implanted:Qty : 2 on 01/11/2015 by Colin Krause MD N/A: Spine Lumbar JNJ : DEPUY SPINE [id number] / / Screw 6x40 Poly Si [id number] - [id number] Implanted:Qty : 1 on 01/11/2015 by Colin Krause MD N/A: Spine Lumbar JNJ : ETHICON CARDIOVATIONS 729368042 / / Screw 6x40 Ti Uni [id number] - [id number] Implanted:Qty : 8 on 01/11/2015 by Colin Krause MD N/A: Spine Lumbar JNJ : ETHICON CARDIOVATIONS [id number] / / Screw 5x40 Ti Uni [id number] - [id number] Implanted:Qty : 2 on 01/11/2015 by Colin Krause MD N/A: Spine Lumbar JNJ : ETHICON CARDIOVATIONS 766537387 / / Screw 6x45 Ti Uni [id number] - [id number] Implanted:Qty : 6 on 01/11/2015 by Colin Krause MD N/A: Spine Lumbar JNJ : ETHICON CARDIOVATIONS 816259656 / / Expedium Ti Sfx 5.5 Lat A2 - [id number] Implanted:Qty : 1 on 01/11/2015 by Colin Krause MD N/A: Spine Lumbar JNJ : ETHICON CARDIOVATIONS [id number] / / Screw Implanted:Qty : 2 on 04/30/2017 by Colin Krause MD N/A: Spine Lumbar SYNTHES : DEPUY 1797-72172 / / Screw Implanted:Qty : 2 on 04/30/2017 by Colin Krause MD N/A: Spine Lumbar SYNTHES : DEPUY 17911-18-860 / / Cage Implanted:Qty : 4 on 04/30/2017 by Colin Krause MD N/A: Spine Lumbar SYNTHES : DEPUY 1878111 / / Connector 5.5 Du [id number] - [id number] Implanted:Qty : 4 on 04/30/2017 by Colin Krause MD N/A: Spine Lumbar JNJ : ETHICON CARDIOVATIONS 045821587 / / Uriel 120mm [id number] - [id number] Implanted:Qty : 2 on 04/30/2017 by Colin Krause MD N/A: Spine Lumbar JNJ : ETHICON CARDIOVATIONS 767842143 / / Screw Set Sng Inner [id number] - [id number] Implanted:Qty : 6 on 04/30/2017 by Colin Krause MD N/A: Spine Lumbar JNJ : ETHICON CARDIOVATIONS 790219014 / / Expedium Ti Sfx 5.5 Lat A6 - [id number] Implanted:Qty : 2 on 04/30/2017 by Colin Krause MD N/A: Spine Lumbar JNJ : ETHICON CARDIOVATIONS 375558003 / / Screw 7x45 Ti Uni [id number] - [id number] Implanted:Qty : 4 on 01/11/2015 by Colin Krause MD Explanted:Qty : 2 on 04/30/2017 N/A: Spine Lumbar JNJ : DEPUY SPINE [id number] / / Screw Set Sng Inner [id number] - [id number] Implanted:Qty : 20 on 01/11/2015 by Colin Krause MD Explanted:Qty : 4 on 04/30/2017 N/A: Spine Lumbar JNJ : DEPUY SPINE [id number] / / Graft Infuse Bone Lg [id number] - [id number] Implanted:Qty : 1 on 04/30/2017 by Colin Krause MD N/A: Spine Lumbar [employer] : NEURO CARE 06/10/2018 [id number] / / as of this encounter Insurance Payer Benefit Plan / Group Subscriber ID Type Phone Address MEDICARE MEDICARE A AND B [id number] Medicare [facility] [id number] [address] [place] [address] as of this encounter
--- OUTSIDE RECORDS SUMMARY | 2023-02-08 02:14 | External Medical Summary | Summary of Care ---
Author Name Unknown Organization [place] [address] Phone Care Team Providers Care Technical Applications Specialist Name Role Phone Casey Rodgers MD Primary Care Provider + [phone] Reason for Visit * Reason Comments MED REQUEST Encounter Details Date Type Department Care Team Description 05/17/2017 Telephone Orthopaedics Spine Surgery, [place] [address] [place] [address] Colin Krause MD [address] [place] [address] MED REQUEST Allergies Active Allergy Reactions Severity Noted Date Comments Hydrochlorothiazide Other (Please comment) 02/26/2017 Caused pancreatitis Metronidazole 02/09/2017 Pill causes severe diarrhea as of this encounter Medications Prescription Sig. Disp. Refills Start Date End Date Status gabapentin (NEURONTIN) 300 MG CapsuleIndications: 1 tab three times daily and 2 [...] for pain 90 Tab 0 05/17/2017 Active oxyCODONE (OXY IR) 5 MG immediate release tablet Take 1-2 tabs every 4 hours as needed for pain 90 Tab 0 05/04/2017 05/17/2017 Discontinued as of this encounter Active Problems Problem [...] encounter Miscellaneous Notes * Telephone Encounter - Jovanna Altamirano OSA - 05/17/2017 9:12 AM EST Requests refill of OxyContin Send to [facility] [phone] Pt of DAA awaiting revision surgery Oxycodone 5mg #90 in this encounter Plan of Treatment Upcoming Encounters Date Type Specialty Care Team Description 06/01/2017 Office Visit Orthopedic Surgery Colin Krause MD [address] [facility] [place] [address] 11/01/2017 Office Visit Cardiology Sterling Lockhart MD [address] [place] [address] [phone] Health Maintenance Due Date Last Done Comments [...] of this encounter Implants Implanted Type Area Manager Title Device Identifier Expiration Date Model / Serial / Lot Dbx 10cc [id number] - [id number] - [id number] Implanted:Qty : 1 on 01/11/2015 by Colin Krause MD Tissue - Human N/A: Spine Lumbar MUSCULOSKELETAL TRANSPLANT FND 08/18/2016 872524 / [id number] / Dbx 10cc 733172 - [id number] - [id number] Implanted:Qty : 1 on 01/11/2015 by Colin Krause MD Tissue - Human N/A: Spine Lumbar MUSCULOSKELETAL TRANSPLANT FND 08/18/2016 122400 / [id number] / Chip Cancellous 30cc 697612 - [id number] Implanted:Qty : 1 on 04/30/2017 by Colin Krause MD Tissue - Human N/A: Spine Lumbar MUSCULOSKELETAL TRANSPLANT FND 01/20/2020 [id number] / / Chip Cancellous 90cc 996332 - [id number] Implanted:Qty : 1 on 04/30/2017 by Colin Krause MD Tissue - Human N/A: Spine Lumbar MUSCULOSKELETAL TRANSPLANT FND 01/29/2018 632393 / / Viper2 Straight Avv431mm Cocr - [id number] Implanted:Qty : 2 on 01/11/2015 by Colin Krause MD N/A: Spine Lumbar JNJ : DEPUY SPINE [id number] / / Screw 6x40 Poly Si [id number] - [id number] Implanted:Qty : 1 on 01/11/2015 by Colin Krause MD N/A: Spine Lumbar JNJ : ETHICON CARDIOVATIONS [id number] / / Screw 6x40 Ti Uni [id number] - [id number] Implanted:Qty : 8 on 01/11/2015 by Colin Krause MD N/A: Spine Lumbar JNJ : ETHICON CARDIOVATIONS [id number] / / Screw 5x40 Ti Uni [id number] - [id number] Implanted:Qty : 2 on 01/11/2015 by Colin Krause MD N/A: Spine Lumbar JNJ : ETHICON CARDIOVATIONS [id number] / / Screw 6x45 Ti Uni [id number] - [id number] Implanted:Qty : 6 on 01/11/2015 by Colin Krause MD N/A: Spine Lumbar JNJ : ETHICON CARDIOVATIONS [id number] / / Expedium Ti Sfx 5.5 Lat A2 - [id number] Implanted:Qty : 1 on 01/11/2015 by Colin Krause MD N/A: Spine Lumbar JNJ : ETHICON CARDIOVATIONS [id number] / / Screw Implanted:Qty : 2 on 04/30/2017 by Colin Krause MD N/A: Spine Lumbar SYNTHES : DEPUY [id number] / / Screw Implanted:Qty : 2 on 04/30/2017 by Colin Krause MD N/A: Spine Lumbar SYNTHES : DEPUY 1797 / / Cage Implanted:Qty : 4 on 04/30/2017 by Colin Krause MD N/A: Spine Lumbar SYNTHES : DEPUY [id number] / / Connector 5.5 Du [id number] - [id number] Implanted:Qty : 4 on 04/30/2017 by Colin Krause MD N/A: Spine Lumbar JNJ : ETHICON CARDIOVATIONS [id number] / / Uriel 120mm [id number] - [id number] Implanted:Qty : 2 on 04/30/2017 by Colin Krause MD N/A: Spine Lumbar JNJ : ETHICON CARDIOVATIONS [id number] / / Screw Set Sng Inner [id number] - [id number] Implanted:Qty : 6 on 04/30/2017 by Colin Krause MD N/A: Spine Lumbar JNJ : ETHICON CARDIOVATIONS [id number] / / Expedium Ti Sfx 5.5 Lat A6 - [id number] Implanted:Qty : 2 on 04/30/2017 by Colin Krause MD N/A: Spine Lumbar JNJ : ETHICON CARDIOVATIONS [id number] / / Screw 7x45 Ti Uni [id number] - [id number] Implanted:Qty : 4 on 01/11/2015 by Colin Krause MD Explanted:Qty : 2 on 04/30/2017 N/A: Spine Lumbar JNJ : DEPUY SPINE [id number] / / Screw Set Sng Inner [id number] - [id number] Implanted:Qty : 20 on 01/11/2015 by Colin Krause MD Explanted:Qty : 4 on 04/30/2017 N/A: Spine Lumbar JNJ : DEPUY SPINE [id number] / / Graft Infuse Bone Lg 3543969 - [id number] Implanted:Qty : 1 on 04/30/2017 by Colin Krause MD N/A: Spine Lumbar [employer] : NEURO CARE 06/10/2018 [id number] / / as of this encounter Insurance Payer Benefit Plan / Group Subscriber ID Type Phone Address MEDICARE MEDICARE A AND B [id number] Medicare [place], [place] AARP AARP [id number] [address] [place] [address] as of this encounter
--- OUTSIDE RECORDS SUMMARY | 2023-02-08 02:14 | External Medical Summary | Summary of Care ---
Author Name Unknown Organization [place] [address] Phone Care Team Providers Care Auxiliary Engineer Name Role Phone Casey Rodgers MD Primary Care Provider + [phone] Reason for Visit * Reason Comments ADVICE Encounter Details Date Type Department Care Team Description 10/05/2017 Telephone Orthopaedics Spine Surgery, [place] [address] [place] [address] Colin Krause MD [address] [place] [address] ADVICE Allergies Active Allergy Reactions Severity Noted Date [...] 07/03/2016 SIRS (systemic inflammatory response syn drome) ([facility]) 05/02/2017 Thrombocytopenia ([facility]) 05/02/2017 Bilateral low back pain without sciatica [...] encounter Miscellaneous Notes * Telephone Encounter - Elvia Mckeon RN - 10/05/2017 3:58 PM EDT Called and spoke with patient. May wean out of brace. No limitations at this time. Advised patient to follow with another spine surgeon close to her if she is not going to return to see Dr. Krause. * Telephone Encounter - Jovanna Altamirano OSA - 10/05/2017 10:23 AM EDT Was scheduled for f/u today, called to cancel appt and to ask if she needs to continue to wear brace and what her limitations are She does not with to reschedule her appt, in this encounter Plan of Treatment Upcoming Encounters Date Type Specialty Care Team Description 11/01/2017 Office Visit Cardiology Sterling Lockhart MD [address] [place] [address] [phone] Health Maintenance Due Date Last Done Comments DTaP,Tdap,and Td Vaccines (1 - Tdap) 12/21/1964 BREAST CANCER SCREENING DISC USSION YEARLY AGES 40-75 1984 PNEUMOCOCCAL ADULT 65 YRS AN D OVER (1 of 2 - PCV13) 2009 *DEPRESSION SCREENING, ANNUA L FOR PTS 18 AND OVER 09/08/2014 *COLORECTAL CANCER SCREENING (COLONOSCOPY 10 YEARS; SIGMOIDOSCOPY 5 YEARS; COLOGUARD 3 YEARS; FOBT 1 YEAR),AGES 50-75 06/13/2017 Influenza Vaccine (FLU shot) (Season Ended) 2017 LIPID SCREEN EVERY 5 YRS-WOM EN AGE 45-75 09/05/2019 09/04/2014 DIABETES SCREEN EVERY 3 YRS- AGE 45 AND ABOVE 05/03/2020 05/03/2017, 05/02/2017, 05/02/2017, Additional history exists DXA-SCREENING EVERY 7 YRS-US E SMARTSET# 3348 TO ORDER 12/26/2021 12/26/2014 as of this encounter Implants Implanted Type Area Shotgun Shell Reprinting Unit Operator Device Identifier Expiration Date Model / Serial / Lot Dbx [facility] 930671 - [id number] - [id number] Implanted:Qty : 1 on 01/11/2015 by Colin Krause MD Tissue - Human N/A: Spine Lumbar MUSCULOSKELETAL TRANSPLANT FND 08/18/2016 753845 / [id number] / Dbx [facility] 862606 - [id number] 756047 - [id number] Implanted:Qty : 1 on 01/11/2015 by Colin Krause MD Tissue - Human N/A: Spine Lumbar MUSCULOSKELETAL TRANSPLANT FND 08/18/2016 833800 / [id number] / Chip Cancellous 30cc 190392 - [id number] Implanted:Qty : 1 on 04/30/2017 by Colin Krause MD Tissue - Human N/A: Spine Lumbar MUSCULOSKELETAL TRANSPLANT FND 01/20/2020 696760 / / Chip Cancellous 90cc 297437 - [id number] Implanted:Qty : 1 on 04/30/2017 by Colin Krause MD Tissue - Human N/A: Spine Lumbar MUSCULOSKELETAL TRANSPLANT FND 01/29/2018 399044 / / Viper2 Straight Grh101pm Cocr - [id number] Implanted:Qty : 2 on 01/11/2015 by Colin Krause MD N/A: Spine Lumbar JNJ : DEPUY SPINE [id number] / / Screw 6x40 Poly Si [id number] - [id number] Implanted:Qty : 1 on 01/11/2015 by Colin Krause MD N/A: Spine Lumbar JNJ : ETHICON CARDIOVATIONS [id number] / / Screw 6x40 Ti Uni [id number] - [id number] Implanted:Qty : 8 on 01/11/2015 by Colin Krause MD N/A: Spine Lumbar JNJ : ETHICON CARDIOVATIONS [id number] / / Screw 5x40 Ti Uni [id number] - [id number] Implanted:Qty : 2 on 01/11/2015 by Colin Krause MD N/A: Spine Lumbar JNJ : ETHICON CARDIOVATIONS [id number] / / Screw 6x45 Ti Uni [id number] - [id number] Implanted:Qty : 6 on 01/11/2015 by Colin Krause MD N/A: Spine Lumbar JNJ : ETHICON CARDIOVATIONS [id number] / / Expedium Ti Sfx 5.5 Lat A2 - [id number] Implanted:Qty : 1 on 01/11/2015 by Colin Krause MD N/A: Spine Lumbar JNJ : ETHICON CARDIOVATIONS [id number] / / Screw Implanted:Qty : 2 on 04/30/2017 by Colin Krause MD N/A: Spine Lumbar SYNTHES : DEPUY [id number] / / Screw Implanted:Qty : 2 on 04/30/2017 by Colin Krause MD N/A: Spine Lumbar SYNTHES : DEPUY / / Cage Implanted:Qty : 4 on 04/30/2017 by Colin Krause MD N/A: Spine Lumbar SYNTHES : DEPUY / / Connector 5.5 Du [id number] - [id number] Implanted:Qty : 4 on 04/30/2017 by Colin Krause MD N/A: Spine Lumbar JNJ : ETHICON CARDIOVATIONS [id number] / / Uriel 120mm [id number] - [id number] Implanted:Qty : 2 on 04/30/2017 by Colin Krause MD N/A: Spine Lumbar JNJ : ETHICON CARDIOVATIONS [id number] / / Screw Set Sng Inner 350192438 - [id number] Implanted:Qty : 6 on 04/30/2017 by Colin Krause MD N/A: Spine Lumbar JNJ : ETHICON CARDIOVATIONS 081508751 / / Expedium Ti Sfx 5.5 Lat A6 - [id number] Implanted:Qty : 2 on 04/30/2017 by Colin Krause MD N/A: Spine Lumbar JNJ : ETHICON CARDIOVATIONS [id number] / / Screw 7x45 Ti Uni [id number] - [id number] Implanted:Qty : 4 on 01/11/2015 by Colin Krause MD Explanted:Qty : 2 on 04/30/2017 N/A: Spine Lumbar JNJ : DEPUY SPINE [id number] / / Screw Set Sng Inner [id number] - [id number] Implanted:Qty : 20 on 01/11/2015 by Colin Krause MD Explanted:Qty : 4 on 04/30/2017 N/A: Spine Lumbar JNJ : DEPUY SPINE [id number] / / Graft Infuse Bone Lg 8202670 - [id number] Implanted:Qty : 1 on 04/30/2017 by Colin Krause MD N/A: Spine Lumbar [employer] : NEURO CARE 06/10/2018 [id number] / / as of this encounter
--- OUTSIDE RECORDS SUMMARY | 2023-02-08 02:14 | External Medical Summary | Summary of Care ---
Author Name Unknown Organization [place] [address] Phone Care Team Providers Care Residential Appraiser Name Role Phone Casey Rodgers MD Primary Care Provider [phone] Encounter Details Date Type Department Care Team Description 05/20/2017 Orders Only Outcomes Research Department [address] [place] [address] [facility] Staley, [facility] Other*[id number] Allergies Active Allergy Reactions Severity Noted Date [...] inflammatory response syn drome) ([facility]) 05/02/2017 Thrombocytopenia ([facility]) 05/02/2017 Bilateral low back pain without [...] Orthopedic Surgery Colin Krause MD [address] [facility] [place] [address] 11/01/2017 Office Visit Cardiology Sterling Lockhart MD [address] [facility] [place] [address] [phone] Scheduled Tests Name Priority Associated Diagnoses Order S chedule MYCODE INITIAL ADULT Routine MyCode Research Other*[id number] Expected: 05/20/2017, Expires: 06/09/2018 Health Maintenance Due Date Last Done Comments [...] of this encounter Implants Implanted Type Area Dovetailer Device Identifier Expiration Date Model / Serial / Lot Dbx [facility] 930113 - [id number] - [id number] Implanted:Qty : 1 on 01/11/2015 by Colin Krause MD Tissue - Human N/A: Spine Lumbar MUSCULOSKELETAL TRANSPLANT FND 08/18/2016 256478 / [id number] / Dbx 10 361073 - [id number] - [id number] Implanted:Qty : 1 on 01/11/2015 by Colin Krause MD Tissue - Human N/A: Spine Lumbar MUSCULOSKELETAL TRANSPLANT FND 08/18/2016 507264 / [id number] / Chip Cancellous 30cc 506159 - [id number] Implanted:Qty : 1 on 04/30/2017 by Colin Krause MD Tissue - Human N/A: Spine Lumbar MUSCULOSKELETAL TRANSPLANT FND 01/20/2020 823983 / / Chip Cancellous 90cc 531321 - [id number] Implanted:Qty : 1 on 04/30/2017 by Colin Krause MD Tissue - Human N/A: Spine Lumbar MUSCULOSKELETAL TRANSPLANT FND 01/29/2018 069764 / / Viper2 Straight [id number] Cocr - [id number] Implanted:Qty : 2 on 01/11/2015 by Colin Krause MD N/A: Spine Lumbar JNJ : DEPUY SPINE [id number] / / Screw 6x40 Poly Si [id number] - [id number] Implanted:Qty : 1 on 01/11/2015 by Colin Krause MD N/A: Spine Lumbar JNJ : ETHICON CARDIOVATIONS [id number] / / Screw 6x40 Ti Uni [id number] - [id number] Implanted:Qty : 8 on 01/11/2015 by Colin Krause MD N/A: Spine Lumbar JNJ : ETHICON CARDIOVATIONS [id number] / / Screw 5x40 Ti Uni 836603234 - [id number] Implanted:Qty : 2 on 01/11/2015 by Colin Krause MD N/A: Spine Lumbar JNJ : ETHICON CARDIOVATIONS 051695763 / / Screw 6x45 Ti Uni [id number] - [id number] Implanted:Qty : 6 on 01/11/2015 by Colin Krause MD N/A: Spine Lumbar JNJ : ETHICON CARDIOVATIONS [id number] / / Expedium Ti Sfx 5.5 Lat A2 - [id number] Implanted:Qty : 1 on 01/11/2015 by Colin Krause MD N/A: Spine Lumbar JNJ : ETHICON CARDIOVATIONS [id number] / / Screw Implanted:Qty : 2 on 04/30/2017 by Colin Krause MD N/A: Spine Lumbar SYNTHES : DEPUY 1797-22576 / / Screw Implanted:Qty : 2 on 04/30/2017 by Colin Krause MD N/A: Spine Lumbar SYNTHES : DEPUY 179870 / / Cage Implanted:Qty : 4 on 04/30/2017 by Colin Krause MD N/A: Spine Lumbar SYNTHES : DEPUY 1878111 / / Connector 5.5 Du [id number] - [id number] Implanted:Qty : 4 on 04/30/2017 by Colin Krause MD N/A: Spine Lumbar JNJ : ETHICON CARDIOVATIONS 636833073 / / Uriel 120mm 751692944 - [id number] Implanted:Qty : 2 on 04/30/2017 by Colin Krause MD N/A: Spine Lumbar JNJ : ETHICON CARDIOVATIONS 379227280 / / Screw Set Sng Inner 803660073 - [id number] Implanted:Qty : 6 on 04/30/2017 by Colin Krause MD N/A: Spine Lumbar JNJ : ETHICON CARDIOVATIONS [id number] / / Expedium Ti Sfx 5.5 Lat A6 - [id number] Implanted:Qty : 2 on 04/30/2017 by Colin Krause MD N/A: Spine Lumbar JNJ : ETHICON CARDIOVATIONS [id number] / / Screw 7x45 Ti Uni [id number] - [id number] Implanted:Qty : 4 on 01/11/2015 by Colin Krause MD Explanted:Qty : 2 on 04/30/2017 N/A: Spine Lumbar JNJ : DEPUY SPINE 147805779 / / Screw Set Sng Inner 938559602 - [id number] Implanted:Qty : 20 on 01/11/2015 by Colin Krause MD Explanted:Qty : 4 on 04/30/2017 N/A: Spine Lumbar JNJ : DEPUY SPINE [id number] / / Graft Infuse Bone Lg 7759340 - [id number] Implanted:Qty : 1 on 04/30/2017 by Colin Krause MD N/A: Spine Lumbar [employer] : NEURO CARE 06/10/2018 [id number] / / as of this encounter Visit Diagnoses Diagnosis MYCODE RESEARCH OTHER*[id number] in this encounter Insurance Payer Benefit Plan / Group Subscriber ID Type Phone Address MEDICARE MEDICARE A AND B [id number] Medicare [place] [facility] [id number] [address] [place] [address] as of this encounter
--- OUTSIDE RECORDS SUMMARY | 2023-02-08 02:14 | External Medical Summary | Summary of Care ---
Author Name Unknown Organization [place] [address] Phone Care Team Providers Care Generator Mechanic Name Role Phone Casey Rodgers MD Primary Care Provider [phone] Reason for Visit * Reason Comments ADVICE Encounter Details Date Type Department Care Team Description 11/08/2017 Telephone Cardiology, [facility] [address] [facility] [place] [address] Sterling Lockhart MD [address] [facility] [place] [address] [phone] ADVICE Allergies Active Allergy Reactions Severity Noted [...] 500-125 MG-UNIT TABS Take by mouth. Active Vbetufh-Sonouzwtlezyr-Y affeine (EXCEDRIN MIGRAINE) 250-250-65 MG per tablet [...] encounter Miscellaneous Notes * Telephone Encounter - Chelo Guzman RN - 11/08/2017 11:26 AM EDT Information faxed as requested. * Telephone Encounter - Deann Bates, YONNY - 11/08/2017 9:34 AM EDT The following fax request has been received: Name of caller: PT Information requested to be faxed/received via fax: Pre op Clearance Fax to: [phone] Dr. Mai's office Attention to: Was this information faxed previously?: No If so, what date(s) was it faxed?: If so, what number was it faxed to?: Any additional information?: Pt is reqeusting a call back once information is faxed. Thank you. in this encounter Plan of Treatment Upcoming Encounters Date Type Specialty Care Team Description 11/07/2018 Office Visit Cardiology Sterling Lockhart MD [address] [place] [address] [place] [address] [phone] Health Maintenance Due Date Last Done Comments [...] of this encounter Implants Implanted Type Area Professional Services Consultant Device Identifier Expiration Date Model / Serial / Lot Dbx 10cc 067482 - [id number] - [id number] Implanted:Qty : 1 on 01/11/2015 by Colin Krause MD Tissue - Human N/A: Spine Lumbar MUSCULOSKELETAL TRANSPLANT FND 08/18/2016 893841 / [id number] / Dbx 10cc 047777 - [id number] - [id number] Implanted:Qty : 1 on 01/11/2015 by Colin Krause MD Tissue - Human N/A: Spine Lumbar MUSCULOSKELETAL TRANSPLANT FND 08/18/2016 596797 / [id number] / Chip Cancellous 30cc 660144 - [id number] Implanted:Qty : 1 on 04/30/2017 by Colin rKause MD Tissue - Human N/A: Spine Lumbar MUSCULOSKELETAL TRANSPLANT FND 01/20/2020 788070 / / Chip Cancellous 90cc 159783 - [id number] Implanted:Qty : 1 on 04/30/2017 by Colin Krause MD Tissue - Human N/A: Spine Lumbar MUSCULOSKELETAL TRANSPLANT FND 01/29/2018 809939 / / Viper2 Straight [id number] Cocr - [id number] Implanted:Qty : 2 on 01/11/2015 by Colin Krause MD N/A: Spine Lumbar JNJ : DEPUY SPINE [id number] / / Screw 6x40 Poly Si [id number] - [id number] Implanted:Qty : 1 on 01/11/2015 by Colin Krause MD N/A: Spine Lumbar JNJ : ETHICON CARDIOVATIONS [id number] / / Screw 6x40 Ti Uni [id number] - [id number] Implanted:Qty : 8 on 01/11/2015 by Colin Krause MD N/A: Spine Lumbar JNJ : ETHICON CARDIOVATIONS 556636346 / / Screw 5x40 Ti Uni [id number] - [id number] Implanted:Qty : 2 on 01/11/2015 by Colin Krause MD N/A: Spine Lumbar JNJ : ETHICON CARDIOVATIONS 511813515 / / Screw 6x45 Ti Uni 830939016 - [id number] Implanted:Qty : 6 on 01/11/2015 by Colin Krause MD N/A: Spine Lumbar JNJ : ETHICON CARDIOVATIONS 525135107 / / Expedium Ti Sfx 5.5 Lat A2 - [id number] Implanted:Qty : 1 on 01/11/2015 by Colin Krause MD N/A: Spine Lumbar JNJ : ETHICON CARDIOVATIONS [id number] / / Screw Implanted:Qty : 2 on 04/30/2017 by Colin Krause MD N/A: Spine Lumbar SYNTHES : DEPUY 1797-21987 / / Screw Implanted:Qty : 2 on 04/30/2017 by Colin Krause MD N/A: Spine Lumbar SYNTHES : DEPUY 1797870 / / Cage Implanted:Qty : 4 on 04/30/2017 by Colin Krause MD N/A: Spine Lumbar SYNTHES : DEPUY 1878111 / / Connector 5.5 Du 699498838 - [id number] Implanted:Qty : 4 on 04/30/2017 by Colin Krause MD N/A: Spine Lumbar JNJ : ETHICON CARDIOVATIONS 344347761 / / Uriel 120mm [id number] - [id number] Implanted:Qty : 2 on 04/30/2017 by Colin Krause MD N/A: Spine Lumbar JNJ : ETHICON CARDIOVATIONS 490142812 / / Screw Set Sng Inner 158693819 - [id number] Implanted:Qty : 6 on 04/30/2017 by Colin Krause MD N/A: Spine Lumbar JNJ : ETHICON CARDIOVATIONS 714068013 / / Expedium Ti Sfx 5.5 Lat A6 - [id number] Implanted:Qty : 2 on 04/30/2017 by Colin Krause MD N/A: Spine Lumbar JNJ : ETHICON CARDIOVATIONS [id number] / / Screw 7x45 Ti Uni [id number] - [id number] Implanted:Qty : 4 on 01/11/2015 by Colin Krause MD Explanted:Qty : 2 on 04/30/2017 N/A: Spine Lumbar JNJ : DEPUY SPINE [id number] / / Screw Set Sng Inner [id number] - [id number] Implanted:Qty : 20 on 01/11/2015 by Colin Krause MD Explanted:Qty : 4 on 04/30/2017 N/A: Spine Lumbar JNJ : DEPUY SPINE 121210645 / / Graft Infuse Bone Lg 4122381 - [id number] Implanted:Qty : 1 on 04/30/2017 by Colin Krause MD N/A: Spine Lumbar [employer] : NEURO CARE 06/10/2018 [id number] / / as of this encounter
--- OUTSIDE RECORDS SUMMARY | 2023-02-08 02:14 | External Medical Summary | Summary of Care ---
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 Active Ggubkil-Lqiyhwdmhzlwi-I affeine (EXCEDRIN MIGRAINE) 250-250-65 MG per tablet [...] encounter Miscellaneous Notes * Telephone Encounter - August Garcia OSA - 11/01/2017 1:[address] Lockhart is requesting medical records from [facility] for continuation of care. in this encounter Plan of Treatment Upcoming Encounters Date Type Specialty Care Team Description 11/07/2018 Office Visit Cardiology Sterling Lockhart MD [address] [place] [address] [phone] Health Maintenance Due Date Last Done Comments [...] of this encounter Implants Implanted Type Area Donation Specialist Device Identifier Expiration Date Model / Serial / Lot Dbx 10cc 033813 - [id number] - [id number] Implanted:Qty : 1 on 01/11/2015 by Colin Krause MD Tissue - Human N/A: Spine Lumbar MUSCULOSKELETAL TRANSPLANT FND 08/18/2016 345905 / [id number] / Dbx 10 135072 - [id number] - [id number] Implanted:Qty : 1 on 01/11/2015 by Colin Krause MD Tissue - Human N/A: Spine Lumbar MUSCULOSKELETAL TRANSPLANT FND 08/18/2016 064168 / [id number] / Chip Cancellous 30cc [id number] - [id number] Implanted:Qty : 1 on 04/30/2017 by Colin Krause MD Tissue - Human N/A: Spine Lumbar MUSCULOSKELETAL TRANSPLANT FND 01/20/2020 304806 / / Chip Cancellous 90cc [id number] - [id number] Implanted:Qty : 1 on 04/30/2017 by Colin Krause MD Tissue - Human N/A: Spine Lumbar MUSCULOSKELETAL TRANSPLANT FND 01/29/2018 852317 / / Viper2 Straight [id number] Cocr - [id number] Implanted:Qty : 2 on 01/11/2015 by Colin Krause MD N/A: Spine Lumbar JNJ : DEPUY SPINE [id number] / / Screw 6x40 Poly Si [id number] - [id number] Implanted:Qty : 1 on 01/11/2015 by Colin Krause MD N/A: Spine Lumbar JNJ : ETHICON CARDIOVATIONS [id number] / / Screw 6x40 Ti Uni [id number] - [id number] Implanted:Qty : 8 on 01/11/2015 by Colin Krause MD N/A: Spine Lumbar JNJ : ETHICON CARDIOVATIONS [id number] / / Screw 5x40 Ti Uni [id number] - [id number] Implanted:Qty : 2 on 01/11/2015 by Colin Krause MD N/A: Spine Lumbar JNJ : ETHICON CARDIOVATIONS [id number] / / Screw 6x45 Ti Uni [id number] - [id number] Implanted:Qty : 6 on 01/11/2015 by Colin Krause MD N/A: Spine Lumbar JNJ : ETHICON CARDIOVATIONS [id number] / / Expedium Ti Sfx 5.5 Lat A2 - [id number] Implanted:Qty : 1 on 01/11/2015 by Colin Krause MD N/A: Spine Lumbar JNJ : ETHICON CARDIOVATIONS [id number] / / Screw Implanted:Qty : 2 on 04/30/2017 by Colin Krause MD N/A: Spine Lumbar SYNTHES : DEPUY [id number] / / Screw Implanted:Qty : 2 on 04/30/2017 by Colin Krause MD N/A: Spine Lumbar SYNTHES : DEPUY 1797-120 / / Cage Implanted:Qty : 4 on 04/30/2017 by Colin Krause MD N/A: Spine Lumbar SYNTHES : DEPUY 1878-21-111 / / Connector 5.5 Du [id number] - [id number] Implanted:Qty : 4 on 04/30/2017 by Colin Krause MD N/A: Spine Lumbar JNJ : ETHICON CARDIOVATIONS [id number] / / Uriel 120mm [id number] - [id number] Implanted:Qty : 2 on 04/30/2017 by Colin Krause MD N/A: Spine Lumbar JNJ : ETHICON CARDIOVATIONS [id number] / / Screw Set Sng Inner [id number] - [id number] Implanted:Qty : 6 on 04/30/2017 by Colin Krause MD N/A: Spine Lumbar JNJ : ETHICON CARDIOVATIONS [id number] / / Expedium Ti Sfx 5.5 Lat A6 - [id number] Implanted:Qty : 2 on 04/30/2017 by Colin Krause MD N/A: Spine Lumbar JNJ : ETHICON CARDIOVATIONS [id number] / / Screw 7x45 Ti Uni [id number] - [id number] Implanted:Qty : 4 on 01/11/2015 by Colin Krause MD Explanted:Qty : 2 on 04/30/2017 N/A: Spine Lumbar JNJ : DEPUY SPINE [id number] / / Screw Set Sng Inner [id number] - [id number] Implanted:Qty : 20 on 01/11/2015 by Colin Krause MD Explanted:Qty : 4 on 04/30/2017 N/A: Spine Lumbar JNJ : DEPUY SPINE [id number] / / Graft Infuse Bone Lg 5285527 - [id number] Implanted:Qty : 1 on 04/30/2017 by Colin Krause MD N/A: Spine Lumbar [employer] : NEURO CARE 06/10/2018 [id number] / / as of this encounter
--- OUTSIDE RECORDS SUMMARY | 2023-02-08 02:14 | External Medical Summary | Summary of Care ---
Author Name Unknown Organization [place] [address] Phone Care Team Providers Care Director Export Name Role Phone Casey Rodgers MD Primary Care Provider [phone] Reason for Visit * Reason Comments Post-Op Hardware removal L4, laminectomy L4-S1, diskectomy Encounter Details Date Type Department Care Team Description 06/01/2017 Office Visit Orthopaedics Spine Surgery, [place] [address], [place] [id number] Colin Kruase MD [address] [place] [address] S/P laminectomy with spinal fusion* Allergies Active Allergy Reactions Severity Noted Date [...] for pain 90 Tab 0 05/17/2017 Active AMITIZA 8 MCG Capsule Take 1 Cap by mouth 2 times a day. 5 02/03/2017 06/01/2017 Discontinued lactulose (CONSTULOSE) 10 GM/15ML solution Take 15 mL by mouth as needed. 1 02/03/2017 06/01/2017 Discontinued as of this encounter Active Problems [...] older No 04/30/2017 as of this encounter Progress Notes * Lavonne Slade PA-C - 06/01/2017 8:20 AM [facility] Orth[facility] Sp[facility] - [facility] Name: Alexia Campos Date: 06/01/2017 Procedure: L4-S1 laminectomy, L4-5 & L5-S1 PLIF, revision L4-ileum w PSF Date of Surgery: 04/30/2017 Surgeon: Dr. Krause HPI: Patient is a 71 year old female who returns to clinic accompanied by spouse for post op followup s/p above procedure. States she is doing well. Feels better than preop. Is getting home PT and progressing well. Anticipates being discharged this week with home program exercises. Ambulating well, using cane. Using [place] brace. Denies new or different numbness, tingling, weakness of extremities, denies fevers, chills, sweats or problems with wound healing. Eager to drive to [place] in the coming days. OBJECTIVE: There were no vitals taken for this visit. General Appearance: alert, no distress, cooperative Psych: Normal mood and affect, fluent speech HEENT: Normocephalic, atraumatic, hearing grossly intact, sclera anicteric, mucous membranes moist,trachea midline Pulm: Normal respiratory effort on RA Musculoskeletal: normal throughout upper and lower extremities, muscle bulk was normal, normal tone Neuro: no focal deficits to gross testing Skin: there were no rashes, the hair and nails appeared normal, to exposed areas Surgical Site: incision healing well, no cellulitis, no drainage and no erythema or warmth Extremities: warm, pink, dry, brisk cap refill Gait: nonataxic, uses cane Spine: Appears well balanced in coronal and sagittal planes Palpation: Patient was not tender upon palpation ROM: deferred in postop period IMAGING: Xray L spine (06/01/2017): HW tight and intact, good sagittal contour ASSESSMENT/PLAN: Alexia Campos is a 71 year old female with: 1. Lumbar spondylosis, stenosis, juxtafusion degeneration A. S/p L4-S1 laminectomy, L4-5 & L5-S1 PLIF, revision L4-ileum w PSF; Apr 2017 - Activity restrictions 3 months postop, discussed brace use and eventual gradual return to regularactivities - Incision site care reviewed - Pain control as prior - All questions answered to apparent satisfaction. Pt knows to call/[facility] with any questions or concerns in the interim. - Return to clinic in 3-4 months after their return from [place]. Will need PA & lateral entire spine films at that time. Lavonne Slade PA-C 06/01/2017 in this encounter Plan of Treatment Upcoming Encounters Date Type Specialty Care Team Description 10/05/2017 Office Visit Orthopedic Surgery Colin Krause MD [address] [place] [address] 11/01/2017 Office Visit Cardiology Sterling Lockhart MD [address] [place] [address] [phone] Pending Results Name Priority Associated Diagnoses Date/Ti me LUMBAR SPINE AP & LATERAL Routine S/P laminectomy with spinal fusion 06/01/2017 7:58 AM EST Health Maintenance Due Date Last Done Comments [...] of this encounter Implants Implanted Type Area Bait Digger Device Identifier Expiration Date Model / Serial / Lot Dbx [facility] 050848 - [id number] - [id number] Implanted:Qty : 1 on 01/11/2015 by Colin Krause MD Tissue - Human N/A: Spine Lumbar MUSCULOSKELETAL TRANSPLANT FND 08/18/2016 300533 / [id number] / Dbx [place] [facility] 271803 - [id number] - [id number] Implanted:Qty : 1 on 01/11/2015 by Colin Krause MD Tissue - Human N/A: Spine Lumbar MUSCULOSKELETAL TRANSPLANT FND 08/18/2016 087065 / [id number] / Chip Cancellous 30cc 226889 - [id number] Implanted:Qty : 1 on 04/30/2017 by Colin Krause MD Tissue - Human N/A: Spine Lumbar MUSCULOSKELETAL TRANSPLANT FND 01/20/2020 766778 / / Chip Cancellous 90cc 015928 - [id number] Implanted:Qty : 1 on 04/30/2017 by Colin Krause MD Tissue - Human N/A: Spine Lumbar MUSCULOSKELETAL TRANSPLANT FND 01/29/2018 707519 / / Viper2 Straight [id number] Cocr - [id number] Implanted:Qty : 2 on 01/11/2015 by Colin Krause MD N/A: Spine Lumbar JNJ : DEPUY SPINE [id number] / / Screw 6x40 Poly Si [id number] - [id number] Implanted:Qty : 1 on 01/11/2015 by Colin Krause MD N/A: Spine Lumbar JNJ : ETHICON CARDIOVATIONS [id number] / / Screw 6x40 Ti Uni [id number] - [id number] Implanted:Qty : 8 on 01/11/2015 by Colin Krause MD N/A: Spine Lumbar JNJ : ETHICON CARDIOVATIONS 713010068 / / Screw 5x40 Ti Uni [id number] - [id number] Implanted:Qty : 2 on 01/11/2015 by Colin Krause MD N/A: Spine Lumbar JNJ : ETHICON CARDIOVATIONS [id number] / / Screw 6x45 Ti Uni [id number] - [id number] Implanted:Qty : 6 on 01/11/2015 by Colin Krause MD N/A: Spine Lumbar JNJ : ETHICON CARDIOVATIONS [id number] / / Expedium Ti Sfx 5.5 Lat A2 - [id number] Implanted:Qty : 1 on 01/11/2015 by Colin Krause MD N/A: Spine Lumbar JNJ : ETHICON CARDIOVATIONS [id number] / / Screw Implanted:Qty : 2 on 04/30/2017 by Colin Krause MD N/A: Spine Lumbar SYNTHES : DEPUY 1797-69736 / / Screw Implanted:Qty : 2 on 04/30/2017 by Colin Krause MD N/A: Spine Lumbar SYNTHES : DEPUY 1797--870 / / Cage Implanted:Qty : 4 on 04/30/2017 by Colin Krause MD N/A: Spine Lumbar SYNTHES : DEPUY 1878-21-111 / / Connector 5.5 Du [id number] - [id number] Implanted:Qty : 4 on 04/30/2017 by Colin Krause MD N/A: Spine Lumbar JNJ : ETHICON CARDIOVATIONS 071938390 / / Uriel 120mm [id number] - [id number] Implanted:Qty : 2 on 04/30/2017 by Colin Krause MD N/A: Spine Lumbar JNJ : ETHICON CARDIOVATIONS 841776873 / / Screw Set Sng Inner 435587432 - [id number] Implanted:Qty : 6 on 04/30/2017 by Colin Krause MD N/A: Spine Lumbar JNJ : ETHICON CARDIOVATIONS 965501010 / / Expedium Ti Sfx 5.5 Lat A6 - [id number] Implanted:Qty : 2 on 04/30/2017 by Colin Krause MD N/A: Spine Lumbar JNJ : ETHICON CARDIOVATIONS 712538401 / / Screw 7x45 Ti Uni [id number] - [id number] Implanted:Qty : 4 on 01/11/2015 by Colin Krause MD Explanted:Qty : 2 on 04/30/2017 N/A: Spine Lumbar JNJ : DEPUY SPINE 678811825 / / Screw Set Sng Inner 328706329 - [id number] Implanted:Qty : 20 on 01/11/2015 by Colin Krause MD Explanted:Qty : 4 on 04/30/2017 N/A: Spine Lumbar JNJ : DEPUY SPINE 199517273 / / Graft Infuse Bone Lg 8463399 - [id number] Implanted:Qty : 1 on 04/30/2017 by Colin Krause MD N/A: Spine Lumbar [employer] : NEURO CARE 06/10/2018 0193828 / / as of this encounter Visit Diagnoses Diagnosis S/P laminectomy with spinal fusion - Primary Arthrodesis status in this encounter Insurance Payer Benefit Plan / Group Subscriber ID Type Phone Address MEDICARE MEDICARE A AND B [id number] Medicare [place] [id number] [address] [place] [address] as of this encounter
--- OUTSIDE RECORDS SUMMARY | 2023-02-08 02:14 | External Medical Summary | Summary of Care ---
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 Active Ulnwjys-Jdjkijydcxdnt-Z affeine (EXCEDRIN MIGRAINE) 250-250-65 MG per tablet [...] Encounter - August Garcia OSA - 11/01/2017 1:13 PM EDT [facility] is requesting medical records for continued care. Forwarded to [facility] in this encounter Plan of Treatment Upcoming Encounters Date Type Specialty Care Team Description 11/07/2018 Office Visit Cardiology Sterling Lockhart MD [address] [place] [address] [phone] Health Maintenance Due Date Last Done Comments [...] of this encounter Implants Implanted Type Area Special Effects Designer Device Identifier Expiration Date Model / Serial / Lot Dbx 10cc 587229 - [id number] - [id number] Implanted:Qty : 1 on 01/11/2015 by Colin Krause MD Tissue - Human N/A: Spine Lumbar MUSCULOSKELETAL TRANSPLANT FND 08/18/2016 143255 / [id number] / Dbx 10cc 442530 - [id number] - [id number] Implanted:Qty : 1 on 01/11/2015 by Colin Krause MD Tissue - Human N/A: Spine Lumbar MUSCULOSKELETAL TRANSPLANT FND 08/18/2016 381324 / [id number] / Chip Cancellous 30cc 726520 - [id number] Implanted:Qty : 1 on 04/30/2017 by Colin Krause MD Tissue - Human N/A: Spine Lumbar MUSCULOSKELETAL TRANSPLANT FND 01/20/2020 778132 / / Chip Cancellous 90cc 809557 - [id number] Implanted:Qty : 1 on 04/30/2017 by Colin Krause MD Tissue - Human N/A: Spine Lumbar MUSCULOSKELETAL TRANSPLANT FND 01/29/2018 592249 / / Viper2 Straight [id number] Cocr - [id number] Implanted:Qty : 2 on 01/11/2015 by Colin Krause MD N/A: Spine Lumbar JNJ : DEPUY SPINE [id number] / / Screw 6x40 Poly Si [id number] - [id number] Implanted:Qty : 1 on 01/11/2015 by Colin Krause MD N/A: Spine Lumbar JNJ : ETHICON CARDIOVATIONS 106494721 / / Screw 6x40 Ti Uni [id number] - [id number] Implanted:Qty : 8 on 01/11/2015 by Colin Krause MD N/A: Spine Lumbar JNJ : ETHICON CARDIOVATIONS 810991222 / / Screw 5x40 Ti Uni [id number] - [id number] Implanted:Qty : 2 on 01/11/2015 by Colin Krause MD N/A: Spine Lumbar JNJ : ETHICON CARDIOVATIONS [id number] / / Screw 6x45 Ti Uni [id number] - [id number] Implanted:Qty : 6 on 01/11/2015 by Colin Krause MD N/A: Spine Lumbar JNJ : ETHICON CARDIOVATIONS 945119741 / / Expedium Ti Sfx 5.5 Lat A2 - [id number] Implanted:Qty : 1 on 01/11/2015 by Colin Krause MD N/A: Spine Lumbar JNJ : ETHICON CARDIOVATIONS [id number] / / Screw Implanted:Qty : 2 on 04/30/2017 by Colin Krause MD N/A: Spine Lumbar SYNTHES : DEPUY 1797-53667 / / Screw Implanted:Qty : 2 on 04/30/2017 by Colin Krause MD N/A: Spine Lumbar SYNTHES : DEPUY 1797090 / / Cage Implanted:Qty : 4 on 04/30/2017 by Colin Krause MD N/A: Spine Lumbar SYNTHES : DEPUY 1878-21-111 / / Connector 5.5 Du [id number] - [id number] Implanted:Qty : 4 on 04/30/2017 by Colin Krause MD N/A: Spine Lumbar JNJ : ETHICON CARDIOVATIONS 661538886 / / Uriel 120mm [id number] - [id number] Implanted:Qty : 2 on 04/30/2017 by Colin Krause MD N/A: Spine Lumbar JNJ : ETHICON CARDIOVATIONS 991069468 / / Screw Set Sng Inner 869609438 - [id number] Implanted:Qty : 6 on 04/30/2017 by Colin Krause MD N/A: Spine Lumbar JNJ : ETHICON CARDIOVATIONS 738411010 / / Expedium Ti Sfx 5.5 Lat A6 - [id number] Implanted:Qty : 2 on 04/30/2017 by Colin Krause MD N/A: Spine Lumbar JNJ : ETHICON CARDIOVATIONS 301596013 / / Screw 7x45 Ti Uni [id number] - [id number] Implanted:Qty : 4 on 01/11/2015 by Colin Krause MD Explanted:Qty : 2 on 04/30/2017 N/A: Spine Lumbar JNJ : DEPUY SPINE [id number] / / Screw Set Sng Inner [id number] - [id number] Implanted:Qty : 20 on 01/11/2015 by Colin Krause MD Explanted:Qty : 4 on 04/30/2017 N/A: Spine Lumbar JNJ : DEPUY SPINE 296418544 / / Graft Infuse Bone Lg 5635581 - [id number] Implanted:Qty : 1 on 04/30/2017 by Colin Krause MD N/A: Spine Lumbar [employer] : NEURO CARE 06/10/2018 [id number] / / as of this encounter
--- OUTSIDE RECORDS SUMMARY | 2023-02-08 02:14 | External Medical Summary | Summary of Care ---
Author Name Unknown Organization [place] [address] Phone Care Team Providers Care Flat Sorting Machine Clerk Name Role Phone Casey Rodgers MD Primary Care Provider [phone] Reason for Visit * Reason Comments MED REQUEST Encounter Details Date Type Department Care Team Description 05/17/2017 Telephone Orthopaedics Spine Surgery, [place] [address] [place] [address] Colin Krause MD [address] [place] [address] MED REQUEST Allergies Active Allergy [...] pain 90 Tab 0 05/04/2017 05/17/2017 Discontinued oxyCODONE (OXY IR) 5 MG immediate release tablet Take 1-2 tabs every 4 hours as needed for pain 90 Tab 0 05/17/2017 05/17/2017 Discontinued as of this encounter Active [...] encounter Miscellaneous Notes * Addendum Note - Linda Talamantes PA-C - 05/17/2017 3:50 PM EST Addended by: LINDA TALAMANTES on: 05/17/2017 03:50 PM Modules accepted: Orders * Telephone Encounter - Linda Talamantes PA-C - 05/17/2017 3:50 PM EST Ok to berry picker/mail * Telephone Encounter - Jovanna Altamirano OSA - 05/17/2017 9:12 AM EST Requests refill of OxyContin Send to [facility] [phone] Pt of DAA awaiting revision surgery Oxycodone 5mg #90 in this encounter Plan of Treatment Upcoming Encounters Date Type Specialty Care Team Description 06/01/2017 Office Visit [facility] [address] [facility] [address] 11/01/2017 Office Visit Cardiology Sterling Lockhart MD [address] [facility] [place] [address] [phone] Health Maintenance Due Date Last Done Comments [...] of this encounter Implants Implanted Type Area Asphalt Mixing Machine Operator Device Identifier Expiration Date Model / Serial / Lot Dbx 10cc 094240 - [id number] - [id number] Implanted:Qty : 1 on 01/11/2015 by Colin Krause MD Tissue - Human N/A: Spine Lumbar MUSCULOSKELETAL TRANSPLANT FND 08/18/2016 298715 / [id number] / Dbx 10cc 930945 - [id number] - [id number] Implanted:Qty : 1 on 01/11/2015 by Colin Krause MD Tissue - Human N/A: Spine Lumbar MUSCULOSKELETAL TRANSPLANT FND 08/18/2016 077405 / [id number] / Chip Cancellous 30cc 664591 - [id number] Implanted:Qty : 1 on 04/30/2017 by Colin Krause MD Tissue - Human N/A: Spine Lumbar MUSCULOSKELETAL TRANSPLANT FND 01/20/2020 018271 / / Chip Cancellous 90cc 557819 - [id number] Implanted:Qty : 1 on 04/30/2017 by Colin Krause MD Tissue - Human N/A: Spine Lumbar MUSCULOSKELETAL TRANSPLANT FND 01/29/2018 590860 / / Viper2 Straight Sag927ox Cocr - [id number] Implanted:Qty : 2 on 01/11/2015 by Colin Krause MD N/A: Spine Lumbar JNJ : DEPUY SPINE [id number] / / Screw 6x40 Poly Si [id number] - [id number] Implanted:Qty : 1 on 01/11/2015 by Colin Krause MD N/A: Spine Lumbar JNJ : ETHICON CARDIOVATIONS [id number] / / Screw 6x40 Ti Uni 813059072 - [id number] Implanted:Qty : 8 on 01/11/2015 by Colin Krause MD N/A: Spine Lumbar JNJ : ETHICON CARDIOVATIONS 375584899 / / Screw 5x40 Ti Uni [id number] - [id number] Implanted:Qty : 2 on 01/11/2015 by Colin Krause MD N/A: Spine Lumbar JNJ : ETHICON CARDIOVATIONS 106003526 / / Screw 6x45 Ti Uni [id number] - [id number] Implanted:Qty : 6 on 01/11/2015 by Colin Krause MD N/A: Spine Lumbar JNJ : ETHICON CARDIOVATIONS 196754602 / / Expedium Ti Sfx 5.5 Lat A2 - [id number] Implanted:Qty : 1 on 01/11/2015 by Colin Krause MD N/A: Spine Lumbar JNJ : ETHICON CARDIOVATIONS [id number] / / Screw Implanted:Qty : 2 on 04/30/2017 by Colin Krause MD N/A: Spine Lumbar SYNTHES : DEPUY 1797-58696 / / Screw Implanted:Qty : 2 on 04/30/2017 by Colin Krause MD N/A: Spine Lumbar SYNTHES : DEPUY 1797870 / / Cage Implanted:Qty : 4 on 04/30/2017 by Colin Krause MD N/A: Spine Lumbar SYNTHES : DEPUY 1878111 / / Connector 5.5 Du 806215960 - [id number] Implanted:Qty : 4 on 04/30/2017 by Colin Krause MD N/A: Spine Lumbar JNJ : ETHICON CARDIOVATIONS 472361384 / / Uriel 120mm 492245960 - [id number] Implanted:Qty : 2 on 04/30/2017 by Colin Krause MD N/A: Spine Lumbar JNJ : ETHICON CARDIOVATIONS 685556538 / / Screw Set Sng Inner [id number] - [id number] Implanted:Qty : 6 on 04/30/2017 by Colin Krause MD N/A: Spine Lumbar JNJ : ETHICON CARDIOVATIONS 457651758 / / Expedium Ti Sfx 5.5 Lat A6 - [id number] Implanted:Qty : 2 on 04/30/2017 by Colin Krause MD N/A: Spine Lumbar JNJ : ETHICON CARDIOVATIONS [id number] / / Screw 7x45 Ti Uni [id number] - [id number] Implanted:Qty : 4 on 01/11/2015 by Colin Krause MD Explanted:Qty : 2 on 04/30/2017 N/A: Spine Lumbar JNJ : DEPUY SPINE [id number] / / Screw Set Sng Inner [id number] - [id number] Implanted:Qty : 20 on 01/11/2015 by Colin Krause MD Explanted:Qty : 4 on 04/30/2017 N/A: Spine Lumbar JNJ : DEPUY SPINE 750096346 / / Graft Infuse Bone Lg [id number] - [id number] Implanted:Qty : 1 on 04/30/2017 by Colin Krause MD N/A: Spine Lumbar [employer] : NEURO CARE 06/10/2018 [id number] / / as of this encounter Insurance Payer Benefit Plan / Group Subscriber ID Type Phone Address MEDICARE MEDICARE A AND B [id number] Medicare [place] OREILL[place] [facility] [id number] [address] [place] [address] as of this encounter
--- OUTSIDE RECORDS SUMMARY | 2023-02-08 02:14 | External Medical Summary | Summary of Care ---
Author Name Unknown Organization [place] [address] Phone Care Team Providers Care Advertising Assistant Name Role Phone Casey Rodgers MD Primary Care Provider + [phone] Encounter Details Date Type Department Care Team Description 06/04/2017 Scan Encounter Orthopaedics Spine Surgery, [place] [address] [place] [address] Colin Krause MD [address] [place] [address] <No scans attached> Allergies Active [...] Orthopedic Surgery Colin Krause MD [address] [facility] [place] [address] 11/01/2017 Office Visit Cardiology Sterling Lockhart MD [address] [facility] [place] [address] [phone] Health Maintenance Due Date Last Done Comments [...] of this encounter Implants Implanted Type Area Surgical Scrub Technologist Device Identifier Expiration Date Model / Serial / Lot Dbx 10 [id number] - [id number] - [id number] Implanted:Qty : 1 on 01/11/2015 by Colin Krause MD Tissue - Human N/A: Spine Lumbar MUSCULOSKELETAL TRANSPLANT FND 08/18/2016 751984 / [id number] / Dbx 10 114171 - [id number] - [id number] Implanted:Qty : 1 on 01/11/2015 by Colin Krause MD Tissue - Human N/A: Spine Lumbar MUSCULOSKELETAL TRANSPLANT FND 08/18/2016 125778 / [id number] / Chip Cancellous 30cc 089052 - [id number] Implanted:Qty : 1 on 04/30/2017 by Colin Krause MD Tissue - Human N/A: Spine Lumbar MUSCULOSKELETAL TRANSPLANT FND 01/20/2020 103540 / / Chip Cancellous 90cc 156892 - [id number] Implanted:Qty : 1 on 04/30/2017 by Colin Krause MD Tissue - Human N/A: Spine Lumbar MUSCULOSKELETAL TRANSPLANT FND 01/29/2018 680550 / / Viper2 Straight [id number] Cocr - [id number] Implanted:Qty : 2 on 01/11/2015 by Colin Krause MD N/A: Spine Lumbar JNJ : DEPUY SPINE [id number] / / Screw 6x40 Poly Si [id number] - [id number] Implanted:Qty : 1 on 01/11/2015 by Colin Krause MD N/A: Spine Lumbar JNJ : ETHICON CARDIOVATIONS [id number] / / Screw 6x40 Ti Uni [id number] - [id number] Implanted:Qty : 8 on 01/11/2015 by Colin Krause MD N/A: Spine Lumbar JNJ : ETHICON CARDIOVATIONS [id number] / / Screw 5x40 Ti Uni [id number] - [id number] Implanted:Qty : 2 on 01/11/2015 by Colin Krause MD N/A: Spine Lumbar JNJ : ETHICON CARDIOVATIONS [id number] / / Screw 6x45 Ti Uni [id number] - [id number] Implanted:Qty : 6 on 01/11/2015 by Colin Krause MD N/A: Spine Lumbar JNJ : ETHICON CARDIOVATIONS [id number] / / Expedium Ti Sfx 5.5 Lat A2 - [id number] Implanted:Qty : 1 on 01/11/2015 by Colin Krause MD N/A: Spine Lumbar JNJ : ETHICON CARDIOVATIONS [id number] / / Screw Implanted:Qty : 2 on 04/30/2017 by Colin Krause MD N/A: Spine Lumbar SYNTHES : DEPUY 1797-60065 / / Screw Implanted:Qty : 2 on 04/30/2017 by Colin Krause MD N/A: Spine Lumbar SYNTHES : DEPUY 1797-12870 / / Cage Implanted:Qty : 4 on 04/30/2017 by Colin Krause MD N/A: Spine Lumbar SYNTHES : DEPUY 1878-21-111 / / Connector 5.5 Du [id number] - [id number] Implanted:Qty : 4 on 04/30/2017 by Colin Krause MD N/A: Spine Lumbar JNJ : ETHICON CARDIOVATIONS [id number] / / Uriel 120mm [id number] - [id number] Implanted:Qty : 2 on 04/30/2017 by Colin Krause MD N/A: Spine Lumbar JNJ : ETHICON CARDIOVATIONS [id number] / / Screw Set Sng Inner [id number] - [id number] Implanted:Qty : 6 on 04/30/2017 by Colin Krause MD N/A: Spine Lumbar JNJ : ETHICON CARDIOVATIONS 276769642 / / Expedium Ti Sfx 5.5 Lat A6 - [id number] Implanted:Qty : 2 on 04/30/2017 by Colin Krause MD N/A: Spine Lumbar JNJ : ETHICON CARDIOVATIONS [id number] / / Screw 7x45 Ti Uni [id number] - [id number] Implanted:Qty : 4 on 01/11/2015 by Colin Krause MD Explanted:Qty : 2 on 04/30/2017 N/A: Spine Lumbar JNJ : DEPUY SPINE [id number] / / Screw Set Sng Inner [id number] - [id number] Implanted:Qty : 20 on 01/11/2015 by Colin Krause MD Explanted:Qty : 4 on 04/30/2017 N/A: Spine Lumbar JNJ : DEPUY SPINE [id number] / / Graft Infuse Bone Lg 9331058 - [id number] Implanted:Qty : 1 on 04/30/2017 by Colin Krause MD N/A: Spine Lumbar [employer] : NEURO CARE 06/10/2018 [id number] / / as of this encounter Insurance Payer Benefit Plan / Group Subscriber ID Type Phone Address MEDICARE MEDICARE A AND B [id number] Medicare [place] [facility] [id number] [address] [place] [address] as of this encounter
--- OUTSIDE RECORDS SUMMARY | 2023-02-08 02:14 | External Medical Summary | Summary of Care ---
Author Name Unknown Organization [place] [address] Phone Care Team Providers Care Academic Success Coordinator Name Role Phone Casey Rodgers MD Primary Care Provider + [phone] Reason for Visit * Reason Comments MEDICATION REFILL Encounter Details Date Type Department Care Team Description 07/14/2017 Refill Orthopaedics Spine Surgery, [place] [address] [place], [place] [id number] Jaron Sullivan MD [address] [place], [place] [id number] Allergies Active Allergy Reactions Severity Noted Date [...] as needed. 30 Tab 11 02/26/2017 Active HYDROcodone-acetami nophen 5-325 mg per tab 5-325 MG per tablet Take 1 Tab by mouth every 6 hours as needed for Pain, Mild. 90 Tab 0 07/20/2017 Active oxyCODONE (OXY IR) 5 MG immediate release tablet Take 1-2 tabs every 4 hours as needed for pain 90 Tab 0 05/17/2017 07/14/2017 Discontinued HYDROcodone-acetami nophen 5-325 mg per tab 5-325 MG per tablet Take 1 Tab by mouth every 6 hours as needed for Pain, Mild. 90 Tab 0 06/16/2017 07/14/2017 Discontinued as of this encounter Active Problems [...] encounter Miscellaneous Notes * Telephone Encounter - Page Goldstein PA-C - 07/21/2017 11:24 AM EDT Signed Prescriptions: Disp Refills HYDROcodone-acetaminophen 5-325 mg per tab*90 Tab 0 Sig: Take 1 Tab by mouth every 6 hours as needed for Pain, Mild. Authorizing Provider: JARON SULLIVAN * Telephone Encounter - Jaron Sullivan MD - 07/20/2017 9:07 AM EDT Signed Prescriptions: Disp Refills HYDROcodone-acetaminophen 5-325 mg per tab*90 Tab 0 Sig: Take 1 Tab by mouth every 6 hours as needed for Pain, Mild. Authorizing Provider: JARON SULLIVAN * Telephone Encounter - Jaron Sullivan MD - 07/20/2017 9:07 AM EDT send * Telephone Encounter - Jovanna Altamirano, YONNY - 07/20/2017 9:03 AM EDT Patient called back to check status of rx, she will run out in a day or 2. Please call patient * Telephone Encounter - Linda Jarquin PA-C - 07/19/2017 10:17 AM EDT It is in Dr. Sullivan's in basket for his review * Telephone Encounter - Valeria Cruz, YONNY - 07/19/2017 9:54 AM EDT Patient calling in requesting update on script. * Telephone Encounter - Linda Jarquin PA-C - 07/14/2017 6:[address] sullivan Please sign script and give to Alysa to send * Telephone Encounter - Alysa Christianson, YONNY - 07/14/2017 8:52 AM EST Pt requesting a script for Hydrocodone-Acetaminophen. Pls mail to the [facility] address. Script must be signed by a provider for the state [facility]. Pt in this encounter Plan of Treatment Upcoming Encounters Date Type Specialty Care Team Description 10/05/2017 Office Visit Orthopedic Surgery Jaron Sullivan MD [address] [place] [address] 11/01/2017 Office Visit Cardiology Sterling Lockhart MD [address] [place] [address] [phone] Health Maintenance Due Date Last Done Comments [...] of this encounter Implants Implanted Type Area Superintendent Pipelines Device Identifier Expiration Date Model / Serial / Lot Dbx 10cc 382980 - [id number] - [id number] Implanted:Qty : 1 on 01/11/2015 by Jaron Sullivan MD Tissue - Human N/A: Spine Lumbar MUSCULOSKELETAL TRANSPLANT FND 08/18/2016 223425 / [id number] / Dbx 10cc 133258 - [id number] - [id number] Implanted:Qty : 1 on 01/11/2015 by Jaron Sullivan MD Tissue - Human N/A: Spine Lumbar MUSCULOSKELETAL TRANSPLANT FND 08/18/2016 060829 / [id number] / Chip Cancellous 30cc 287478 - [id number] Implanted:Qty : 1 on 04/30/2017 by Jaron Sullivan MD Tissue - Human N/A: Spine Lumbar MUSCULOSKELETAL TRANSPLANT FND 01/20/2020 958807 / / Chip Cancellous 90cc 472107 - [id number] Implanted:Qty : 1 on 04/30/2017 by Jaron Sullivan MD Tissue - Human N/A: Spine Lumbar MUSCULOSKELETAL TRANSPLANT FND 01/29/2018 709389 / / Viper2 Straight [id number] Cocr - [id number] Implanted:Qty : 2 on 01/11/2015 by Jaron Sullivan MD N/A: Spine Lumbar JNJ : DEPUY SPINE [id number] / / Screw 6x40 Poly Si [id number] - [id number] Implanted:Qty : 1 on 01/11/2015 by Jaron Sullivan MD N/A: Spine Lumbar JNJ : ETHICON CARDIOVATIONS [id number] / / Screw 6x40 Ti Uni [id number] - [id number] Implanted:Qty : 8 on 01/11/2015 by Jaron Sullivan MD N/A: Spine Lumbar JNJ : ETHICON CARDIOVATIONS [id number] / / Screw 5x40 Ti Uni [id number] - [id number] Implanted:Qty : 2 on 01/11/2015 by Jaron Sullivan MD N/A: Spine Lumbar JNJ : ETHICON CARDIOVATIONS 395366529 / / Screw 6x45 Ti Uni [id number] - [id number] Implanted:Qty : 6 on 01/11/2015 by Jaron Sullivan MD N/A: Spine Lumbar JNJ : ETHICON CARDIOVATIONS 476746766 / / Expedium Ti Sfx 5.5 Lat A2 - [id number] Implanted:Qty : 1 on 01/11/2015 by Jaron Sullivan MD N/A: Spine Lumbar JNJ : ETHICON CARDIOVATIONS [id number] / / Screw Implanted:Qty : 2 on 04/30/2017 by Jaron Sullivan MD N/A: Spine Lumbar SYNTHES : DEPUY 1797-80213 / / Screw Implanted:Qty : 2 on 04/30/2017 by Jaron Sullivan MD N/A: Spine Lumbar SYNTHES : DEPUY 1797 / / Cage Implanted:Qty : 4 on 04/30/2017 by Jaron Sullivan MD N/A: Spine Lumbar SYNTHES : DEPUY 1878-21-111 / / Connector 5.5 Du 298403888 - [id number] Implanted:Qty : 4 on 04/30/2017 by Jaron Sullivan MD N/A: Spine Lumbar JNJ : ETHICON CARDIOVATIONS 527971373 / / Uriel 120mm [id number] - [id number] Implanted:Qty : 2 on 04/30/2017 by Jaron Sullivan MD N/A: Spine Lumbar JNJ : ETHICON CARDIOVATIONS 911072839 / / Screw Set Sng Inner 274728297 - [id number] Implanted:Qty : 6 on 04/30/2017 by Jaron Sullivan MD N/A: Spine Lumbar JNJ : ETHICON CARDIOVATIONS 650317972 / / Expedium Ti Sfx 5.5 Lat A6 - [id number] Implanted:Qty : 2 on 04/30/2017 by Jaron Sullivan MD N/A: Spine Lumbar JNJ : ETHICON CARDIOVATIONS 720451246 / / Screw 7x45 Ti Uni [id number] - [id number] Implanted:Qty : 4 on 01/11/2015 by Jaron Sullivan MD Explanted:Qty : 2 on 04/30/2017 N/A: Spine Lumbar JNJ : DEPUY SPINE 794723160 / / Screw Set Sng Inner [id number] - [id number] Implanted:Qty : 20 on 01/11/2015 by Jaron Sullivan MD Explanted:Qty : 4 on 04/30/2017 N/A: Spine Lumbar JNJ : DEPUY SPINE 011815017 / / Graft Infuse Bone Lg 2766852 - [id number] Implanted:Qty : 1 on 04/30/2017 by Jaron Sullivan MD N/A: Spine Lumbar [employer] : NEURO CARE 06/10/2018 [id number] / / as of this encounter Insurance Payer Benefit Plan / Group Subscriber ID Type Phone Address MEDICARE MEDICARE A AND B [id number] Medicare [place] [employer] [id number] [address] [place] [address] as of this encounter
--- OUTSIDE RECORDS SUMMARY | 2023-02-08 02:14 | External Medical Summary | Summary of Care ---
Author Name Unknown Organization [place] [address] Phone Care Team Providers Care Timber Feller Name Role Phone Casey Rodgers MD Primary Care Provider + [phone] Reason for Visit * Reason Comments Information Encounter Details Date Type Department Care Team Description 05/18/2017 Telephone Orthopaedics Spine Surgery, [place] [address] [place] [address] Colin Krause MD [address] [place] [address] Information Allergies Active Allergy Reactions [...] Telephone Encounter - Alice Sierra RN - 05/18/2017 3:03 PM EST CALLED REGGIE AND SHE SAID IT HAS CALMED DOWN SOME THIS AFTERNOON . SHE WILL LET US KNOW IF SHE NEEDS TO COME IN TO BE SEEN. * Telephone Encounter - Alice Sierra RN - 05/18/2017 1:17 PM EST Needs to come in to be seen. * Telephone Encounter - Valeria Cruz OSA - 05/18/2017 12:29 PM EST Monique calling from [facility] in [place]. Patient had back surgery 04/30 and came home on 05/04, was doing fine and no pain, however a few days ago developed thigh pain and worked its way to ankle and each day getting progressively worse. Has return apt on 06/01. Monique is concerned due to patient history. Just seen patient today Monique in this encounter Plan of Treatment Upcoming Encounters Date Type Specialty Care Team Description 06/01/2017 Office Visit Orthopedic Surgery Colin Krause MD [address] [facility] [place] [address] 11/01/2017 Office Visit Cardiology Sterling [facility]hart [facility] [address] [facility] [address] Health Maintenance Due Date Last Done [...] of this encounter Implants Implanted Type Area Web Architect Device Identifier Expiration Date Model / Serial / Lot Dbx 10 813040 - [id number] - [id number] Implanted:Qty : 1 on 01/11/2015 by Colin Krause MD Tissue - Human N/A: Spine Lumbar MUSCULOSKELETAL TRANSPLANT FND 08/18/2016 454548 / [id number] / Dbx 10 405059 - [id number] - [id number] Implanted:Qty : 1 on 01/11/2015 by Colin Krause MD Tissue - Human N/A: Spine Lumbar MUSCULOSKELETAL TRANSPLANT FND 08/18/2016 900730 / [id number] / Chip Cancellous 30cc 907189 - [id number] Implanted:Qty : 1 on 04/30/2017 by Colin Krause MD Tissue - Human N/A: Spine Lumbar MUSCULOSKELETAL TRANSPLANT FND 01/20/2020 407318 / / Chip Cancellous 90cc 665366 - [id number] Implanted:Qty : 1 on 04/30/2017 by Colin Krause MD Tissue - Human N/A: Spine Lumbar MUSCULOSKELETAL TRANSPLANT FND 01/29/2018 933823 / / Viper2 Straight [id number] Cocr - [id number] Implanted:Qty : 2 on 01/11/2015 by Colin Krause MD N/A: Spine Lumbar JNJ : DEPUY SPINE [id number] / / Screw 6x40 Poly Si 017946225 - [id number] Implanted:Qty : 1 on 01/11/2015 by Colin Krause MD N/A: Spine Lumbar JNJ : ETHICON CARDIOVATIONS 738227042 / / Screw 6x40 Ti Uni 691768198 - [id number] Implanted:Qty : 8 on 01/11/2015 by Colin Krause MD N/A: Spine Lumbar JNJ : ETHICON CARDIOVATIONS 931764458 / / Screw 5x40 Ti Uni 962315963 - [id number] Implanted:Qty : 2 on 01/11/2015 by Colin Krause MD N/A: Spine Lumbar JNJ : ETHICON CARDIOVATIONS 105580676 / / Screw 6x45 Ti Uni 524281641 - [id number] Implanted:Qty : 6 on 01/11/2015 by Colin Krause MD N/A: Spine Lumbar JNJ : ETHICON CARDIOVATIONS 392535879 / / Expedium Ti Sfx 5.5 Lat A2 - [id number] Implanted:Qty : 1 on 01/11/2015 by Colin Krause MD N/A: Spine Lumbar JNJ : ETHICON CARDIOVATIONS [id number] / / Screw Implanted:Qty : 2 on 04/30/2017 by Colin Krause MD N/A: Spine Lumbar SYNTHES : DEPUY 1797-19291 / / Screw Implanted:Qty : 2 on 04/30/2017 by Colin Krause MD N/A: Spine Lumbar SYNTHES : DEPUY 1797-870 / / Cage Implanted:Qty : 4 on 04/30/2017 by Colin Krause MD N/A: Spine Lumbar SYNTHES : DEPUY 1878-111 / / Connector 5.5 Du 766563985 - [id number] Implanted:Qty : 4 on 04/30/2017 by Colin Krause MD N/A: Spine Lumbar JNJ : ETHICON CARDIOVATIONS 801095054 / / Uriel 120mm 883237423 - [id number] Implanted:Qty : 2 on 04/30/2017 by Colin Krause MD N/A: Spine Lumbar JNJ : ETHICON CARDIOVATIONS 359879934 / / Screw Set Sng Inner 182083662 - [id number] Implanted:Qty : 6 on 04/30/2017 by Colin Krause MD N/A: Spine Lumbar JNJ : ETHICON CARDIOVATIONS 614130923 / / Expedium Ti Sfx 5.5 Lat A6 - [id number] Implanted:Qty : 2 on 04/30/2017 by Colin Krause MD N/A: Spine Lumbar JNJ : ETHICON CARDIOVATIONS 062102700 / / Screw 7x45 Ti Uni 310592859 - [id number] Implanted:Qty : 4 on 01/11/2015 by Colin Krause MD Explanted:Qty : 2 on 04/30/2017 N/A: Spine Lumbar JNJ : DEPUY SPINE 575885590 / / Screw Set Sng Inner 401523580 - [id number] Implanted:Qty : 20 on 01/11/2015 by Colin Krause MD Explanted:Qty : 4 on 04/30/2017 N/A: Spine Lumbar JNJ : DEPUY SPINE 782233353 / / Graft Infuse Bone Lg 2029253 - [id number] Implanted:Qty : 1 on 04/30/2017 by Colin Krause MD N/A: Spine Lumbar [employer] : NEURO CARE 06/10/2018 [id number] / / as of this encounter Insurance Payer Benefit Plan / Group Subscriber ID Type Phone Address MEDICARE MEDICARE A AND B [id number] Medicare [facility] [id number] [address] [place] [address] as of this encounter
--- OUTSIDE RECORDS SUMMARY | 2023-02-08 02:14 | External Medical Summary | Summary of Care ---
Author Name Unknown [place] [address] Phone Care Team Providers Care Commercial Roofing Estimator Name Role Phone Casey Rodgers MD Primary Care Provider [phone] Encounter Details Date Type Department Care Team [...] Office Visit Cardiology Sterling Lockhart MD [address] [facility] [place] [address] [phone] Health Maintenance Due Date Last Done Comments [...] this encounter Implants Implanted Type Area Manager Strategic Alliances Device Identifier Expiration Date Model / Serial / Lot Dbx 10cc 196004 - [id number] - [id number] Implanted:Qty : 1 on 01/11/2015 by Colin Krause MD Tissue - Human N/A: Spine Lumbar MUSCULOSKELETAL TRANSPLANT FND 08/18/2016 213553 / [id number] / Dbx 10 154146 - [id number] - [id number] Implanted:Qty : 1 on 01/11/2015 by Colin Krause MD Tissue - Human N/A: Spine Lumbar MUSCULOSKELETAL TRANSPLANT FND 08/18/2016 404195 / [id number] / Chip Cancellous 30cc 713533 - [id number] Implanted:Qty : 1 on 04/30/2017 by Colin Krause MD Tissue - Human N/A: Spine Lumbar MUSCULOSKELETAL TRANSPLANT FND 01/20/2020 861732 / / Chip Cancellous 90cc 603957 - [id number] Implanted:Qty : 1 on 04/30/2017 by Colin Krause MD Tissue - Human N/A: Spine Lumbar MUSCULOSKELETAL TRANSPLANT FND 01/29/2018 833564 / / Viper2 Straight Cii123zs Cocr - [id number] Implanted:Qty : 2 on 01/11/2015 by Colin Krause MD N/A: Spine Lumbar JNJ : DEPUY SPINE 555355860 / / Screw 6x40 Poly Si 561232411 - [id number] Implanted:Qty : 1 on 01/11/2015 by Colin Krause MD N/A: Spine Lumbar JNJ : ETHICON CARDIOVATIONS 108228071 / / Screw 6x40 Ti Uni 903021748 - [id number] Implanted:Qty : 8 on 01/11/2015 by Colin Krause MD N/A: Spine Lumbar JNJ : ETHICON CARDIOVATIONS 810053262 / / Screw 5x40 Ti Uni 321645925 - [id number] Implanted:Qty : 2 on 01/11/2015 by Colin Krause MD N/A: Spine Lumbar JNJ : ETHICON CARDIOVATIONS 722260243 / / Screw 6x45 Ti Uni 109172009 - [id number] Implanted:Qty : 6 on 01/11/2015 by Colin Krause MD N/A: Spine Lumbar JNJ : ETHICON CARDIOVATIONS 133117020 / / Expedium Ti Sfx 5.5 Lat A2 - [id number] Implanted:Qty : 1 on 01/11/2015 by Colin Krause MD N/A: Spine Lumbar JNJ : ETHICON CARDIOVATIONS 886249115 / / Screw Implanted:Qty : 2 on 04/30/2017 by Colin Krause MD N/A: Spine Lumbar SYNTHES : DEPUY 1797-13447 / / Screw Implanted:Qty : 2 on 04/30/2017 by Colin Krause MD N/A: Spine Lumbar SYNTHES : DEPUY 1797-12870 / / Cage Implanted:Qty : 4 on 04/30/2017 by Colin Krause MD N/A: Spine Lumbar SYNTHES : DEPUY 1878-21-111 / / Connector 5.5 Du 295031774 - [id number] Implanted:Qty : 4 on 04/30/2017 by Colin Krause MD N/A: Spine Lumbar JNJ : ETHICON CARDIOVATIONS 947546363 / / Uriel 120mm [id number] - [id number] Implanted:Qty : 2 on 04/30/2017 by Colin Krause MD N/A: Spine Lumbar JNJ : ETHICON CARDIOVATIONS 199929850 / / Screw Set Sng Inner 357696418 - [id number] Implanted:Qty : 6 on 04/30/2017 by Colin Krause MD N/A: Spine Lumbar JNJ : ETHICON CARDIOVATIONS 678566216 / / Expedium Ti Sfx 5.5 Lat A6 - [id number] Implanted:Qty : 2 on 04/30/2017 by Colin Krause MD N/A: Spine Lumbar JNJ : ETHICON CARDIOVATIONS 378187977 / / Screw 7x45 Ti Uni 264168309 - [id number] Implanted:Qty : 4 on 01/11/2015 by Colin Krause MD Explanted:Qty : 2 on 04/30/2017 N/A: Spine Lumbar JNJ : DEPUY SPINE [id number] / / Screw Set Sng Inner [id number] - [id number] Implanted:Qty : 20 on 01/11/2015 by Colin Krause MD Explanted:Qty : 4 on 04/30/2017 N/A: Spine Lumbar JNJ : DEPUY SPINE [id number] / / Graft Infuse Bone Lg 4022128 - [id number] Implanted:Qty : 1 on 04/30/2017 by Colin Krause MD N/A: Spine Lumbar [employer] : NEURO CARE 06/10/2018 [id number] / / as of this encounter
--- OUTSIDE RECORDS SUMMARY | 2023-02-08 02:14 | External Medical Summary | Summary of Care ---
Author Name Unknown Organization [facility] [address] Phone Care Team Providers Care Poultry Process Worker Name Role Phone Casey Rodgers MD Primary Care Provider + [phone] Reason for Visit * Reason Comments MEDICATION REFILL Encounter Details Date Type Department Care Team Description 08/16/2017 [facility] [address] [place], [place] [id number] Colin Krause MD [address] [place], [place] [id number] Allergies Active Allergy Reactions Severity Noted Date [...] her PCP Please follow up with patient [phone] * Telephone Encounter - Colin Krause MD - 08/23/2017 12:35 PM EDT Pending Prescriptions: Disp Refills HYDROcodone-acetaminophen 5-325 mg per tab*90 Tab 0 Sig: Take 1 Tab by mouth every 6 hours as needed for Pain, Mild. * Telephone Encounter - Anthony Valeria Meyer, YONNY - 08/23/2017 11:28 AM EDT Patient [...] and hung up the phone. Pt ph [phone] * Telephone Encounter - Annie Anne RN [...] refill on hydrocodone, call and mail to [facility] [place] [address]. in this encounter Plan of Treatment Upcoming Encounters Date Type Specialty Care Team Description 10/05/2017 Office Visit Orthopedic Surgery Colin Krause MD [address] [facility] [place] [address] 11/01/2017 Office Visit Cardiology Sterling [facility]hart [facility] [address] [facility] [address] [phone] Health Maintenance Due Date Last Done Comments [...] of this encounter Implants Implanted Type Area Bank Runner Device Identifier Expiration Date Model / Serial / Lot Dbx 10cc [id number] - [id number] - [id number] Implanted:Qty : 1 on 01/11/2015 by Colin Krause MD Tissue - Human N/A: Spine Lumbar MUSCULOSKELETAL TRANSPLANT FND 08/18/2016 218430 / [id number] / Dbx 10 772246 - [id number] - [id number] Implanted:Qty : 1 on 01/11/2015 by Colin Krause MD Tissue - Human N/A: Spine Lumbar MUSCULOSKELETAL TRANSPLANT FND 08/18/2016 183645 / [id number] / Chip Cancellous 30cc [id number] - [id number] Implanted:Qty : 1 on 04/30/2017 by Colin Krause MD Tissue - Human N/A: Spine Lumbar MUSCULOSKELETAL TRANSPLANT FND 01/20/2020 [id number] / / Chip Cancellous 90cc [id number] - [id number] Implanted:Qty : 1 on 04/30/2017 by Colin Krause MD Tissue - Human N/A: Spine Lumbar MUSCULOSKELETAL TRANSPLANT FND 01/29/2018 [id number] / / Viper2 Straight [id number] Cocr - [id number] Implanted:Qty : 2 on 01/11/2015 by Colin Krause MD N/A: Spine Lumbar JNJ : DEPUY SPINE [id number] / / Screw 6x40 Poly Si [id number] - [id number] Implanted:Qty : 1 on 01/11/2015 by Colin Krause MD N/A: Spine Lumbar JNJ : ETHICON CARDIOVATIONS [id number] / / Screw 6x40 Ti Uni [id number] - [id number] Implanted:Qty : 8 on 01/11/2015 by Colin Krause MD N/A: Spine Lumbar JNJ : ETHICON CARDIOVATIONS [id number] / / Screw 5x40 Ti Uni [id number] - [id number] Implanted:Qty : 2 on 01/11/2015 by Colin Krause MD N/A: Spine Lumbar JNJ : ETHICON CARDIOVATIONS [id number] / / Screw 6x45 Ti Uni [id number] - [id number] Implanted:Qty : 6 on 01/11/2015 by Colin Krause MD N/A: Spine Lumbar JNJ : ETHICON CARDIOVATIONS [id number] / / Expedium Ti Sfx 5.5 Lat A2 - [id number] Implanted:Qty : 1 on 01/11/2015 by Colin Krause MD N/A: Spine Lumbar JNJ : ETHICON CARDIOVATIONS [id number] / / Screw Implanted:Qty : 2 on 04/30/2017 by Colin Krause MD N/A: Spine Lumbar SYNTHES : DEPUY [id number] / / Screw Implanted:Qty : 2 on 04/30/2017 by Colin Krause MD N/A: Spine Lumbar SYNTHES : DEPUY [id number] / / Cage Implanted:Qty : 4 on 04/30/2017 by Colin Krause MD N/A: Spine Lumbar SYNTHES : DEPUY [id number] / / Connector 5.5 Du [id number] - [id number] Implanted:Qty : 4 on 04/30/2017 by Colin Krause MD N/A: Spine Lumbar JNJ : ETHICON CARDIOVATIONS [id number] / / Uriel 120mm [id number] - [id number] Implanted:Qty : 2 on 04/30/2017 by Colin Krause MD N/A: Spine Lumbar JNJ : ETHICON CARDIOVATIONS [id number] / / Screw Set Sng Inner [id number] - [id number] Implanted:Qty : 6 on 04/30/2017 by Colin Krause MD N/A: Spine Lumbar JNJ : ETHICON CARDIOVATIONS [id number] / / Expedium Ti Sfx 5.5 Lat A6 - [id number] Implanted:Qty : 2 on 04/30/2017 by Colin Krause MD N/A: Spine Lumbar JNJ : ETHICON CARDIOVATIONS [id number] / / Screw 7x45 Ti Uni [id number] - [id number] Implanted:Qty : 4 on 01/11/2015 by Colin Krause MD Explanted:Qty : 2 on 04/30/2017 N/A: Spine Lumbar JNJ : DEPUY SPINE [id number] / / Screw Set Sng Inner [id number] - [id number] Implanted:Qty : 20 on 01/11/2015 by Colin Krause MD Explanted:Qty : 4 on 04/30/2017 N/A: Spine Lumbar JNJ : DEPUY SPINE [id number] / / Graft Infuse Bone Lg [id number] - [id number] Implanted:Qty : 1 on 04/30/2017 by Colin Krause MD N/A: Spine Lumbar [employer] : NEURO CARE 06/10/2018 [id number] / / as of this encounter Insurance Payer Benefit Plan / Group Subscriber ID Type Phone Address MEDICARE MEDICARE A AND B [id number] Medicare [place] [id number] [address] [place] [address] as of this encounter
--- OUTSIDE RECORDS SUMMARY | 2023-02-08 02:14 | External Medical Summary | Summary of Care ---
Author Name Unknown Organization [place] [address] Phone Care Team Providers Care Barrow Worker Name Role Phone Casey Rodgers MD Primary Care Provider [phone] Reason for Visit * Reason Comments Pre-op Clearance Encounter Details Date Type Department Care Team Description 11/01/2017 Office Visit Cardiology, [facility] [address] [place] [address] Sterling Lockhart MD [address] [place] [address] [phone] Pre-operative cardiovascular examination* Allergies Active Allergy Reactions Severity Noted Date [...] 500-125 MG-UNIT TABS Take by mouth. Active Ddizwre-Tskcgbjrrnuup-P affeine (EXCEDRIN MIGRAINE) 250-250-65 MG per tablet [...] 49 Started: 09/04/1966 Smokeless Tobacco: Never Used Tobacco Cessation:Ready to Q uit: No; Counseling Given: Yes Alcohol Use Drinks/Week oz/Week Comments No Sex Assigned at Date Recorded Not on file as of this encounter Last Filed Vital Signs Vital Sign Reading Time Taken Blood Pressure 112/68 11/01/2017 10:32 AM EDT Pulse 76 11/01/2017 10:32 AM EDT Temperature - - Respiratory Rate 16 11/01/2017 10:3 2 AM EDT Oxygen Saturation - - Inhaled Oxygen Concentration - - Weight 49 kg (108 lb) 11/01/2017 10:32 AM EDT Height - - Body Mass Index 21.09 11/01/2017 10:32 AM EDT in this encounter Functional Status Functional Status [...] Progress Notes * Sterling Lockhart MD - 11/01/2017 10:58 AM EDT See dictated note on 11/01/2017 Sterling Lockhart MD in this encounter Nursing Notes * Jory Ayala LPN - 11/01/2017 10:30 AM EDT Examination Room: 17 Name: Alexia Campos Date of : (1945). Reason for Visit: follow up/pre op assessment for cholecystectomy Interim Hospitalization(s): 10/2017 [facility] Adalberto, pancreatitis/gall bladder Problems/Concerns: denies cardiac complaints Chest Pain/SOB: denies My [facility] is a way you can talk to your provider online through e-mail. Would you like to sign up? I can activate it for you? NO in this encounter Plan of Treatment Upcoming Encounters Date Type Specialty Care Team Description 11/07/2018 Office Visit Cardiology Sterling Lockhart MD [address] [place] [address] [place] [address] [phone] Scheduled Tests Name Priority Associated Diagnoses Order S chedule EKG Routine Pre-operative cardiovascular examination Expected: 11/01/2017 (Approximate), Expires: 12/01/2018 Health Maintenance Due Date Last Done Comments [...] of this encounter Implants Implanted Type Area Commercial Field Inspector Device Identifier Expiration Date Model / Serial / Lot Dbx 10 432605 - [id number] - [id number] Implanted:Qty : 1 on 01/11/2015 by Colin Krause MD Tissue - Human N/A: Spine Lumbar MUSCULOSKELETAL TRANSPLANT FND 08/18/2016 909105 / [id number] / Dbx 10 922363 - [id number] - [id number] Implanted:Qty : 1 on 01/11/2015 by Colin Krause MD Tissue - Human N/A: Spine Lumbar MUSCULOSKELETAL TRANSPLANT FND 08/18/2016 652503 / [id number] / Chip Cancellous 30cc [id number] - [id number] Implanted:Qty : 1 on 04/30/2017 by Colin Krause MD Tissue - Human N/A: Spine Lumbar MUSCULOSKELETAL TRANSPLANT FND 01/20/2020 529073 / / Chip Cancellous 90cc [id number] - [id number] Implanted:Qty : 1 on 04/30/2017 by Colin Krause MD Tissue - Human N/A: Spine Lumbar MUSCULOSKELETAL TRANSPLANT FND 01/29/2018 271798 / / Viper2 Straight [id number] Cocr - [id number] Implanted:Qty : 2 on 01/11/2015 by Colin Krause MD N/A: Spine Lumbar JNJ : DEPUY SPINE [id number] / / Screw 6x40 Poly Si [id number] - [id number] Implanted:Qty : 1 on 01/11/2015 by Colin Krause MD N/A: Spine Lumbar JNJ : ETHICON CARDIOVATIONS [id number] / / Screw 6x40 Ti Uni [id number] - [id number] Implanted:Qty : 8 on 01/11/2015 by Colin Krause MD N/A: Spine Lumbar JNJ : ETHICON CARDIOVATIONS [id number] / / Screw 5x40 Ti Uni [id number] - [id number] Implanted:Qty : 2 on 01/11/2015 by Colin Krause MD N/A: Spine Lumbar JNJ : ETHICON CARDIOVATIONS [id number] / / Screw 6x45 Ti Uni [id number] - [id number] Implanted:Qty : 6 on 01/11/2015 by Colin Krause MD N/A: Spine Lumbar JNJ : ETHICON CARDIOVATIONS [id number] / / Expedium Ti Sfx 5.5 Lat A2 - [id number] Implanted:Qty : 1 on 01/11/2015 by Colin Krause MD N/A: Spine Lumbar JNJ : ETHICON CARDIOVATIONS [id number] / / Screw Implanted:Qty : 2 on 04/30/2017 by Colin Krause MD N/A: Spine Lumbar SYNTHES : DEPUY [id number] / / Screw Implanted:Qty : 2 on 04/30/2017 by Colin Krause MD N/A: Spine Lumbar SYNTHES : DEPUY 1797-12-870 / / Cage Implanted:Qty : 4 on 04/30/2017 by Colin Krause MD N/A: Spine Lumbar SYNTHES : DEPUY 1878-21-111 / / Connector 5.5 Du [id number] - [id number] Implanted:Qty : 4 on 04/30/2017 by Colin Krause MD N/A: Spine Lumbar JNJ : ETHICON CARDIOVATIONS [id number] / / Uriel 120mm [id number] - [id number] Implanted:Qty : 2 on 04/30/2017 by Colin Krause MD N/A: Spine Lumbar JNJ : ETHICON CARDIOVATIONS [id number] / / Screw Set Sng Inner [id number] - [id number] Implanted:Qty : 6 on 04/30/2017 by Colin Krause MD N/A: Spine Lumbar JNJ : ETHICON CARDIOVATIONS [id number] / / Expedium Ti Sfx 5.5 Lat A6 - [id number] Implanted:Qty : 2 on 04/30/2017 by Colin Krause MD N/A: Spine Lumbar JNJ : ETHICON CARDIOVATIONS [id number] / / Screw 7x45 Ti Uni [id number] - [id number] Implanted:Qty : 4 on 01/11/2015 by Colin Kraues MD Explanted:Qty : 2 on 04/30/2017 N/A: Spine Lumbar JNJ : DEPUY SPINE [id number] / / Screw Set Sng Inner [id number] - [id number] Implanted:Qty : 20 on 01/11/2015 by Colin Krause MD Explanted:Qty : 4 on 04/30/2017 N/A: Spine Lumbar JNJ : DEPUY SPINE [id number] / / Graft Infuse Bone Lg [id number] - [id number] Implanted:Qty : 1 on 04/30/2017 by Colin Krause MD N/A: Spine Lumbar [employer] : NEURO CARE 06/10/2018 [id number] / / as of this encounter Visit Diagnoses Diagnosis Pre-operative cardiovascular examination - Primary in this encounter
--- OUTSIDE RECORDS SUMMARY | 2023-02-08 02:15 | External Medical Summary ---
Author Name Unknown Address [address] [place] [address] Phone Organization K[facility] [address] [place] [id number] Laboratory Report Ordering Provider Test Date Status LUCILLE REMYTwyla 05/02/2017 01:18:00 Final Observation Date Value Abnormality Reference Status Source 05/02/2017 00:55 BLOOD Fin al comment 05/02/2017 00:55 PERIPHERAL Fi nal Bacteria identified in Unspecified specimen by Culture 05/08/2017 00:28 NO GROWTH Final REPORT STATUS 05/08/2017 00:28 05/08/2017 FINAL Final Performing Location [facility] [address] [facility] [address]
--- OUTSIDE RECORDS SUMMARY | 2023-02-08 02:15 | External Medical Summary ---
Author Name Unknown Address [facility] [address] Phone Organization K01:[place] [address] [place] [id number] Laboratory Report Ordering Provider Test Date Status MARTINE CHAUDHARIDESIREE 04/08/2017 13:06:00 Final Observation Date Value Abnormality Reference Status CRP, low-sensitivity 04/08/2017 14:11 <1 0- 5 Final Performing Location [address] [address]
--- OUTSIDE RECORDS SUMMARY | 2023-02-08 02:15 | External Medical Summary | Summary of Care ---
Author Name Unknown [place] [address] Phone Care Team Providers Care Cleater Name Role Phone Caesy Rodgers MD Primary Care Provider + [phone] Reason for Referral * Precert (Routine) Status Reason Specialty Diagnoses / Procedures Re ferred By Contact Referred To Contact Authorized Precert Radiology Diagnoses Chronic bilateral low back pain without sciatica Fusion of spine of thoracolumbar region Procedures MRI T SPINE W/WO Linda Morris PA-C [address] [place], [place] * Precert (Routine) Status Reason Specialty Diagnoses / Procedures Re ferred By Contact Referred To Contact Authorized Precert Radiology Diagnoses Chronic bilateral low back pain without sciatica Fusion of spine of thoracolumbar region Procedures MRI L SPINE W/WO Linda Morris PA-C [address] [place], [place] * Precert (Routine) Status Reason Specialty Diagnoses / Procedures Re ferred By Contact Referred To Contact Authorized Precert Radiology Diagnoses Chronic bilateral low back pain without sciatica Fusion of spine of thoracolumbar region Procedures CT L SPINE W/O Linda Morris PA-C [address] [place], [place] * Precert (Routine) Status Reason Specialty Diagnoses / Procedures Re ferred By Contact Referred To Contact Authorized Precert Radiology Diagnoses Chronic bilateral low back pain without sciatica Fusion of spine of thoracolumbar region Procedures CT T SPINE W/O CONT Linda Jarquin PA-C [address] [place] [address] Reason for Visit * Reason Comments FOLLOW UP T7-L4 posterior spin al fusion * Evaluate & Treat - Unlimited Visits (Within 3 days (urgent)) Status Reason Specialty Diagnoses / Procedures Referred By Contact Referred To Contact Pending Review Specialty Services Required Orthopaedic Surgery Diagnoses Osteomyelitis (HCC) Casey Rodgers MD [address] [facility] [address] [place] [address] Colin Krause MD [address] [place] [address] Encounter Details Date Type Department Care Team Description 04/08/2017 Office Visit Orthopaedics Spine Surgery, [place] [address] [place], [place] [id number] Linda Jarquin PA-C [address] [place] [address] Chronic bilateral low back pain without sciatica*;Fusion of spine of thoracolumbar region Allergies Active Allergy Reactions Severity Noted [...] as needed. 30 Tab 11 02/26/2017 Active hydrocodone-acetami nophen 5-300 mg per tab (VICODIN) 5-300 MG per tablet Take 1 Tab by mouth every 6 hours as needed for Pain, Mild. Active traMADol (ULTRAM) 50 MG Tablet Take 1 Tab by mouth every 6 hours as needed for Pain. 30 Tab 0 10/29/2015 04/08/2017 Discontinued ondansetron (ZOFRAN) 4 MG Tablet Take 4 mg by mouth every 8 hours as needed for Nausea. 04/08/2017 Discontinued Topiramate 50 MG Tablet Take 50 mg by mouth 2 times a day. 0 02/05/2017 04/08/2017 Discontinued as of this encounter Active Problems Problem Noted Date Bilateral low back pain without sciatica 05/17/2015 as of this encounter Social History Tobacco Use Types Packs/Day Years Used Date Current Every Day Smoker Cigarettes 0.25 50 Started: 09/04/1966 Smokeless Tobacco: Never Used Alcohol Use Drinks/Week oz/Week Comments No Sex Assigned at Date Recorded Not on file as of this encounter Last Filed Vital Signs Vital Sign Reading Time Taken Blood Pressure - - Pulse - - Temperature - - Respiratory Rate - - Oxygen Saturation - - Inhaled Oxygen Concentration - - Weight 50 kg (110 lb 3.2 oz) 04/08/2017 11:43 AM EST Height 152.4 cm (5') 04/08/2017 11:43 AM EST Body Mass Index 21.52 04/08/2017 11:43 AM EST in this encounter Functional Status Functional Status Response Date of Assess ment Are you deaf or do you have serious difficulty h earing? No 01/11/2015 Are you blind or do you have serious difficulty seeing, even when wearing glasses? No 01/11/2015 Do you have serious difficul ty walking or climbing stairs? (5 years old or older) No 01/11/2015 Do you have difficulty dress ing or bathing? (5 years old or older) No 01/11/2015 Because of a physical, menta l, or emotional condition, do you have difficulty doing errands alone such as visiting a doctor s office or shopping? (15 years old or older) No 01/12/20 15 Cognitive Status Response Date of Assessm ent Because of a physical, menta l, or emotional condition, do you have serious difficulty concentrating, remembering, or making decisions? (5 years old or older No 01/11/2015 as of this encounter Progress Notes * Linda Jarquin PA-C - 04/09/2017 10:28 AM EST Please see dictated note for documentation on this encounter. [facility] Linda Jarquin PA-C 04/09/2017 10:28 AM in this encounter Plan of Treatment Upcoming Encounters Date Type Specialty Care Team Description 04/16/2017 Imaging Radiology [facility] [address] [place] [address] 04/16/2017 Imaging Radiology [facility] [address] [place] [address] 04/16/2017 Imaging Radiology [facility] [address] [place] [address] 04/16/2017 [facility] [address] [place] [address] 11/01/2017 Office Visit Cardiology Sterling Lockhart MD [address] [place] [address] [phone] Scheduled Tests Name Priority Associated Diagnoses Order S chedule CT T SPINE W/O CONT Routine Chronic bilateral low back pain without sciatica Fusion of spine of thoracolumbar region Ordered: 04/08/2017 CT L SPINE W/O CONT Routine Chronic bilateral low back pain without sciatica Fusion of spine of thoracolumbar region Ordered: 04/08/2017 MRI L SPINE W/WO CONT Routine Chronic bilateral low back pain without sciatica Fusion of spine of thoracolumbar region Ordered: 04/08/2017 MRI T SPINE W/WO CONT Routine Chronic bilateral low back pain without sciatica Fusion of spine of thoracolumbar region Ordered: 04/08/2017 Health Maintenance Due Date Last Done Comments [...] 09/08/2014 Influenza Vaccine (FLU shot) (#1) 2016 *BASIC METABOLIC PANEL (BMP) FOR HTN YEARLY 03/01/2017 LIPID SCREEN EVERY 5 YRS-WOM EN AGE 45-75 09/05/2019 09/04/2014 DIABETES SCREEN EVERY 3 YRS- AGE 45 AND ABOVE 04/08/2020 04/08/2017, 01/17/2015, 01/14/2015, Additional history exists DXA-SCREENING EVERY 7 YRS-US E SMARTSET# 3348 TO ORDER 12/26/2021 12/26/2014 as of this encounter Implants Implanted Type Area Grants Officer Device Identifier Expiration Date Model / Serial / Lot Dbx 10 715385 - [id number] - [id number] Implanted:Qt y: 1 on 01/11/2015 by Colin Krause MD Tissue - Human N/A: Spine Lumbar MUSCULOSKELETAL TRANSPLANT FND 08/18/2016 780330 / [id number] / Dbx 10 888281 - [id number] - [id number] Implanted:Qt y: 1 on 01/11/2015 by Colin Krause MD Tissue - Human N/A: Spine Lumbar MUSCULOSKELETAL TRANSPLANT FND 08/18/2016 076826 / [id number] / Viper2 Straight [id number] Cocr - [id number] Implanted:Qt y: 2 on 01/11/2015 by Colin Krause MD N/A: Spine Lumbar JNJ : DEPUY SPINE [id number] / / Screw 6x40 Poly Si [id number] - [id number] Implanted:Qt y: 1 on 01/11/2015 by Colin Krause MD N/A: Spine Lumbar JNJ : ETHICON CARDIOVATIONS [id number] / / Screw 6x40 Ti Uni [id number] - [id number] Implanted:Qt y: 8 on 01/11/2015 by Colin Krause MD N/A: Spine Lumbar JNJ : ETHICON CARDIOVATIONS [id number] / / Screw 5x40 Ti Uni [id number] - [id number] Implanted:Qt y: 2 on 01/11/2015 by Colin Krause MD N/A: Spine Lumbar JNJ : ETHICON CARDIOVATIONS [id number] / / Screw 6x45 Ti Uni [id number] - [id number] Implanted:Qt y: 6 on 01/11/2015 by Colin Krause MD N/A: Spine Lumbar JNJ : ETHICON CARDIOVATIONS [id number] / / Screw 7x45 Ti Uni [id number] - [id number] Implanted:Qt y: 4 on 01/11/2015 by Colin Krause MD N/A: Spine Lumbar JNJ : DEPUY SPINE [id number] / / Screw Set Sng Inner [id number] - [id number] Implanted:Qt y: 20 on 01/11/2015 by Colin Krause MD N/A: Spine Lumbar JNJ : DEPUY SPINE [id number] / / Expedium Ti Sfx 5.5 Lat A2 - [id number] Implanted:Qt y: 1 on 01/11/2015 by Colin Krause MD N/A: Spine Lumbar JNJ : ETHICON CARDIOVATIONS [id number] / / Expedium Ti Sfx 5.5 Lat A5 - [id number] Implanted:Qt y: 1 on 01/11/2015 by Colin Krause MD N/A: Spine Lumbar JNJ : ETHICON CARDIOVATIONS [id number] / / as of this encounter Results * CBC/DIFF (04/08/2017 1:06 PM) Component Value Ref Range WBC 10.44 4.00 - 10.80 K/u L RBC 4.49 3.85 - 5.15 M/uL HGB 14.4 12.0 - 15.3 g/dL HCT 45.6(H) 36.0 - 45.2 % MCV 101.6(H) 81.5 - 97.5 fL MCH 32.1 27.0 - 34.0 pg MCHC 31.6(L) 32.0 - 36.0 g/dL RDW 14.4 11.5 - 15.5 % PLATELET COUNT 232 140 - 400 K/uL MPV 11.7(H) 6.6 - 11.1 fL NEUTS 71.7 40 - 75 % LYMPHS 20.0 18 - 42 % MONOS 5.9 1 - 11 % EOS 1.4 0 - 6 % BASOS 0.8 0 - 2 % IMMATURE GRANULOCYTE 0.2 0 - 2 % ABS. NEUTS 7.48 1.8 - 7.7 K/uL ABS. LYMPHS 2.09 1.0 - 4.8 K/uL ABS. MONOS 0.62 0.0 - 1.1 K/uL ABS. EOS 0.15 0.0 - 0.7 K/uL ABS. BASOS 0.08 0.0 - 0.2 K/uL ABSOLUTE IMMATURE GRANULOCYTES 0.02 0 .0 - 0.2 K/uL Specimen Performing Laborator y [facility] [address] [place] [address] * BASIC METAB PANEL, BMP (04/08/2017 1:06 PM) Component Value Ref Range BUN 27(H) 6 - 20 mg/dL CREATININE 0.5 Comment: GFR should be used to assess renal function. Plasma/Serum creatinine may not be able to properly reflect renal function in some cases. 0.5 - 1.0 mg/dL SODIUM 144 135 - 146 mmol/L POTASSIUM 3.9 3.5 - 5.1 mmol/L CHLORIDE 106 98 - 107 mmol/L CO2 25 22 - 32 mmol/L ANION GAP 13 7 - 15 mmol/L GLUCOSE 90 70 - 120 mg/dL CALCIUM 10.1 8.4 - 10.2 mg/dL E GLOM FILT RATE >60.0Comment:If lindsey ent is , multiply estimated GFR by 1.159. >60 Specimen Performing Laborator y [facility] [address] [place] [address] * CRP (INFLAMMATORY MARKER) (04/08/2017 1:06 PM) Component Value Ref Range LOW SENSITIVITY CRP <1 0 - 5 mg/L Specimen Performing Laborator y [facility] [address] [place] [address] * SEDIMENTATION RATE (04/08/2017 1:06 PM) Component Value Ref Range SEDIMENTATION RATE 7 0 - 20 mm/marifer r Specimen Performing Laborator y Blood [facility] [address] [place] [address] in this encounter Visit Diagnoses Diagnosis Chronic bilateral low back p ain without sciatica - Primary Fusion of spine of thoracolu mbar region Congenital fusion of spine (vertebra) in this encounter Insurance Payer Benefit Plan / Group Subscriber ID Type Phone Address MEDICARE MEDICARE A AND B [id number] Medicare [place], [place] AAR AARP [id number] [address] [place] [address] as of this encounter
--- OUTSIDE RECORDS SUMMARY | 2023-02-08 02:15 | External Medical Summary | Summary of Care ---
Author Name Unknown Organization [place] [address] Phone Care Team Providers Care Cook Fruit Name Role Phone Unavailable Primary Care Provider Unavailabl e Encounter Details Date Type Department Care Team Description 04/08/2017 Scan Encounter Orthopaedics Spine Surgery, [place] [address] [place] [address] Linda Jarquin PA-C [address] [place] [address] <No scans attached> Allergies Active Allergy Reactions Severity Noted Date Comments Hydrochlorothiazide Other (Please comment) 02/26/2017 Caused pancreatitis Metronidazole 02/09/2017 Pill causes severe diarrhea as of this encounter Medications Prescription Sig. Disp. Refills Start Date End Date Status traMADol (ULTRAM) 50 MG Tablet Take 1 Tab by mouth every 6 hours as needed for Pain. 30 Tab 0 10/29/2015 Active gabapentin (NEURONTIN) 300 MG CapsuleIndications:1 tab three times daily and 2 tabs at bedtime Take 300 mg by mouth 4 times a day. Indications: 1 tab three times daily and 2 tabs at bedtime 10/29/2015 Active ondansetron (ZOFRAN) 4 MG Tablet Take 4 mg by mouth every 8 hours as needed for Nausea. Active pantoprazole (PROTONIX) 40 MG TBEC Take 1 Tab by mouth daily. 12 02/24/2017 Active Topiramate 50 MG Tablet Take 50 mg by mouth 2 times a day. 0 02/05/2017 Active AMITIZA 8 MCG Capsule Take 1 Cap by mouth 2 times a day. 5 02/03/2017 Active lactulose (CONSTULOSE) 10 GM/15ML solution Take 15 mL by mouth as needed. 1 02/03/2017 Active lisinopril (PRINIVIL) 10 MG Tablet Take 1 Tab by mouth daily. Patient reports she takes as needed. 30 Tab 11 02/26/2017 Active as of this encounter Active Problems [...] older No 01/11/2015 as of this encounter Plan of Treatment Upcoming Encounters Date Type Specialty Care Team Description 04/08/2017 Scan Encounter Orthopedic Surgery Linda Jarquin PA-C [address] [place] [address] <No scans attached> 04/08/2017 Office Visit Orthopedic Surgery Linda Jarquin PA-C [address] [place] [address] 11/01/2017 Office Visit Cardiology Sterling oLckhart MD [address] [facility] [place] [address] [phone] Health Maintenance Due Date Last Done Comments [...] METABOLIC PANEL (BMP) FOR HTN YEARLY 03/01/2017 DIABETES SCREEN EVERY 3 YRS- AGE 45 AND ABOVE 01/17/2018 01/17/2015, 01/14/2015, 01/13/2015, Additional history exists LIPID SCREEN EVERY 5 YRS-WOM EN AGE 45-75 09/05/2019 09/04/2014 DXA-SCREENING EVERY 7 YRS-US E SMARTSET# 3348 TO ORDER 12/26/2021 12/26/2014 as of this encounter Implants Implanted Type Area Building Construction Teacher Device Identifier Expiration Date Model / Serial / Lot Dbx 10cc 727698 - [id number] - [id number] Implanted:Qt y: 1 on 01/11/2015 by Colin Krause MD Tissue - Human N/A: Spine Lumbar MUSCULOSKELETAL TRANSPLANT FND 08/18/2016 [id number] / [id number] / Dbx 10 [id number] - [id number] - [id number] Implanted:Qt y: 1 on 01/11/2015 by Colin Krause MD Tissue - Human N/A: Spine Lumbar MUSCULOSKELETAL TRANSPLANT FND 08/18/2016 [id number] / [id number] / Viper2 Straight [id number] Cocr - [id number] Implanted:Qt y: 2 on 01/11/2015 by Colin Krause MD N/A: Spine Lumbar JNJ : DEPUY SPINE [id number] / / Screw 6x40 Poly Si [id number] - [id number] Implanted:Qt y: 1 on 01/11/2015 by Colin Krause MD N/A: Spine Lumbar JNJ : [employer] [id number] / / Screw 6x40 Ti Uni [id number] - [id number] Implanted:Qt y: 8 on 01/11/2015 by Colin Krause MD N/A: Spine Lumbar JNJ : [employer] [id number] / / Screw 5x40 Ti Uni [id number] - [id number] Implanted:Qt y: 2 on 01/11/2015 by Colin Krause MD N/A: Spine Lumbar JNJ : [employer] [id number] / / Screw 6x45 Ti Uni [id number] - [id number] Implanted:Qt y: 6 on 01/11/2015 by Colin Krause MD N/A: Spine Lumbar JNJ : [employer] [id number] / / Screw 7x45 Ti Uni [id number] - [id number] Implanted:Qt y: 4 on 01/11/2015 by Colin Krause MD N/A: Spine Lumbar JNJ : DEPUY SPINE [id number] / / Screw Set Sng Inner [id number] - [id number] Implanted:Qt y: 20 on 01/11/2015 by Colin Krause MD N/A: Spine Lumbar JNJ : DEPUY SPINE [id number] / / Expedium Ti Sfx 5.5 Lat A2 - [id number] Implanted:Qt y: 1 on 01/11/2015 by Colin Krause MD N/A: Spine Lumbar JNJ : [employer] [id number] / / Expedium Ti Sfx 5.5 Lat A5 - [id number] Implanted:Qt y: 1 on 01/11/2015 by Colin Krause MD N/A: Spine Lumbar JNJ : [employer] [id number] / / as of this encounter Insurance Payer Benefit Plan / Group Subscriber ID Type Phone Address MEDICARE MEDICARE A AND B [id number] Medicare [place] [id number] [address] [place] [address] as of this encounter
--- OUTSIDE RECORDS SUMMARY | 2023-02-08 02:15 | External Medical Summary ---
Author Name Unknown Address [address] [id number] Phone Organization K01:[facility] [address] [id number] Laboratory Report Ordering Provider Test Date Status ALBIN CHAUDHARI 04/08/2017 13:06:00 Final Observation Date Value Abnormality Reference Status BUN 04/08/2017 14:11 27 Above high normal 6-20 Final Creatinine 04/08/2017 14:11 0.5 0.5-1.0 Fi nal Performing Location [facility] [address] [facility] [address]
--- OUTSIDE RECORDS SUMMARY | 2023-02-08 02:15 | External Medical Summary | Summary of Care ---
Author Name Unknown Organization [place] [address] Phone Care Team Providers Care Copyman Name Role Phone Casey Rodgers MD Primary Care Provider + [phone] Reason for Referral * (Within 10 days (routine)) Status Reason Specialty Diagnoses / Procedures Referre d By Contact Referred To Contact Shane Guadarrama MD [address] [place] [address] Reason for Visit * Reason Comments FOLLOW UP T7-L4 PSF Encounter Details Date Type Department Care Team Description 04/22/2017 Office Visit Orthopaedics Spine Surgery, [place] [address] [place] [address] Colin Krause MD [address] [place], [place] [id number] Spondylosis of lumbosacral region without myelopathy or radiculopathy*;Aftercare following surgery of the musculoskeletal system Allergies Active Allergy Reactions Severity Noted Date [...] as needed. 30 Tab 11 02/26/2017 Active hydrocodone-acetaminoph en 5-300 mg per tab (VICODIN) 5-300 MG per tablet Take 1 Tab by mouth every 6 hours as needed for Pain, Mild. Active as of this encounter Active Problems [...] as of this encounter Progress Notes * Shane Guadarrama MD - 04/22/2017 2:42 PM EST Please see dictated note for documentation on this encounter. [facility] Shane Guadarrama MD 04/22/2017 2:42 PM Hibiclens scrub was given. Nasal swab was performed. Presurgical education was completed at today's visit. * Shane Guadarrama MD - 04/22/2017 1:00 PM EST Please see dictation for documentation on this encounter. Shane Guadarrama MD 04/22/2017 2:21 PM in this encounter Miscellaneous Notes * Addendum Note - Shane Guadarrama MD - 04/22/2017 2:47 PM EST Addended by: SHANE GUADARRAMA on: 04/22/2017 02:47 PM Modules accepted: Orders, SmartSet in this encounter Plan of Treatment Upcoming Encounters Date Type Specialty Care Team Description 11/01/2017 Office Visit Cardiology Sterling Lockhart MD [address] [facility] [place] [address] [phone] Scheduled Tests Name Priority Associated Diagnoses Order S chedule BASIC METAB PANEL, BMP Routine Spondylosis of lumbosacral region without myelopathy or radiculopathy Expected: 04/22/2017 (Approximate), Expires: 07/21/2017 CBC/DIFF Routine Spondylosis of lumbosacral region without myelopathy or radiculopathy Expected: 04/22/2017 (Approximate), Expires: 07/21/2017 CARBOXYHEMOGLOBIN Routine Spondylosis of lumbosacral region without myelopathy or radiculopathy Expected: 04/22/2017 (Approximate), Expires: 07/21/2017 CULTURE QUANT URINE Routine Spondylosis of lumbosacral region without myelopathy or radiculopathy Ordered: 04/22/2017 HEMOGLOBIN A1C Routine Spondylosis of lumbosacral region without myelopathy or radiculopathy Expected: 04/22/2017 (Approximate), Expires: 07/21/2017 STAPH AUREUS PCR Routine Spondylosis of lumbosacral region without myelopathy or radiculopathy Ordered: 04/22/2017 PT/INR Routine Spondylosis of lumbosacral region without myelopathy or radiculopathy Expected: 04/22/2017 (Approximate), Expires: 07/21/2017 TYPE AND SCREEN Routine Spondylosis of lumbosacral region without myelopathy or radiculopathy Expected: 04/22/2017 (Approximate), Expires: 07/21/2017 PREPARE (CROSSMATCH) PACKED RED BLOOD CELLS Blood Product Routine Spondylosis of lumbosacral region without myelopathy or radiculopathy Ordered: 04/22/2017 DRAWING BLOOD, ROUTINE Routine Spondylosis of lumbosacral region without myelopathy or radiculopathy Ordered: 04/22/2017 EKG Routine Spondylosis of lumbosacral region without myelopathy or radiculopathy Ordered: 04/22/2017 Scheduled Referrals Name Priority Associated Diagnoses Order S chedule BLOOD CONSERVATION CONSULT/REFERRAL Within 10 days (routine) Spondylosis of lumbosacral region without myelopathy or radiculopathy Ordered: 04/22/2017 Health Maintenance Due Date Last Done Comments [...] of this encounter Implants Implanted Type Area Blueprint Blocker Device Identifier Expiration Date Model / Serial / Lot Dbx psychiatric 866913 - [id number] - [id number] Implanted:Qt y: 1 on 01/11/2015 by Colin Krause MD Tissue - Human N/A: Spine Lumbar MUSCULOSKELETAL TRANSPLANT FND 08/18/2016 273605 / [id number] / Dbx psychiatric 345671 - [id number] - [id number] Implanted:Qt y: 1 on 01/11/2015 by Colin Krause MD Tissue - Human N/A: Spine Lumbar MUSCULOSKELETAL TRANSPLANT FND 08/18/2016 447185 / [id number] / Viper2 Straight [id number] Cocr - [id number] Implanted:Qt y: 2 on 01/11/2015 by Colin Krause MD N/A: Spine Lumbar JNJ : DEPUY SPINE [id number] / / Screw 6x40 Poly Si [id number] - [id number] Implanted:Qt y: 1 on 01/11/2015 by Colin Krause MD N/A: Spine Lumbar JNJ : [employer] [id number] / / Screw 6x40 Ti Uni [id number] - [id number] Implanted:Qt y: 8 on 01/11/2015 by Colin Krause MD N/A: Spine Lumbar JNJ : [employer] [id number] / / Screw 5x40 Ti Uni [id number] - [id number] Implanted:Qt y: 2 on 01/11/2015 by Colin Krause MD N/A: Spine Lumbar JNJ : [employer] [id number] / / Screw 6x45 Ti Uni [id number] - [id number] Implanted:Qt y: 6 on 01/11/2015 by Colin Krause MD N/A: Spine Lumbar JNJ : [employer] [id number] / / Screw 7x45 Ti Uni [id number] - [id number] Implanted:Qt y: 4 on 01/11/2015 by Colin Krause MD N/A: Spine Lumbar JNJ : DEPUY SPINE [id number] / / Screw Set Sng Inner [id number] - [id number] Implanted:Qt y: 20 on 01/11/2015 by Colin Krause MD N/A: Spine Lumbar JNJ : DEPUY SPINE [id number] / / Expedium Ti Sfx 5.5 Lat A2 - [id number] Implanted:Qt y: 1 on 01/11/2015 by Colin Krause MD N/A: Spine Lumbar JNJ : [employer] [id number] / / Expedium Ti Sfx 5.5 Lat A5 - [id number] Implanted:Qt y: 1 on 01/11/2015 by Colin Krause MD N/A: Spine Lumbar JNJ : [employer] [id number] / / as of this encounter Visit Diagnoses Diagnosis Spondylosis of lumbosacral r egion without myelopathy or radiculopathy - Primary Lumbosacral spondylosis without myelopathy Aftercare following surgery of the musculoskeletal system Aftercare following surgery of the musculoskeletal system, NEC in this encounter Insurance Payer Benefit Plan / Group Subscriber ID Type Phone Address MEDICARE MEDICARE A AND B [id number] Medicare [place], [place] AARP AARP [id number] [address] [place] [address] as of this encounter
--- OUTSIDE RECORDS SUMMARY | 2023-02-08 02:15 | External Medical Summary ---
Author Name Unknown Address Unknown Organization [email or web address]:Performed at [place] [address] [facility] [address] Laboratory Report Ordering Provider Test Date Status CHIARA LYNN 04/22/2017 14:43:00 Final Observation Date Value Abnormality Reference Status ASSOCIATED ORDER 04/24/2017 15:07 See Type and S creen for units Final Performing Location Performed at [facility] [address] [facility] [address]
--- OUTSIDE RECORDS SUMMARY | 2023-02-08 02:15 | External Medical Summary | Summary of Care ---
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 Allergies Active Allergy Reactions Severity Noted Date [...] Vital Sign Reading Time Taken Blood Pressure 120/68 04/22/2017 3:58 PM EST Pulse 58 04/22/2017 3:58 PM EST Temperature - - Respiratory Rate 20 04/22/2017 3:58 PM EST Oxygen Saturation 98% 04/22/2017 3:5 8 PM EST Inhaled Oxygen Concentration - - Weight - - Height - - Body Mass Index - - in this encounter Functional Status Functional Status [...] older No 01/11/2015 as of this encounter Instructions * Patient Instructions - Anuja Rodrigues RN - 04/22/2017 3:15 PM EST Morning of surgery patient may take hydrocodone, Protonix with sips of water 2 hours prior to checkin time [facility]: Contact # Directions to Same Day Surgery in from the Main Entrance The Surgical Waiting Room can be found in the Lobby of [facility]. Enter through Main Lobby Entrance and the Waiting Room is directly in front of you. Proceed to check in and give them your name. Directions to Same Day Surgery from the East Entrance Enter the East entrance and follow the hallway to the J elevator. Take the J elevator up to Level 1. Continue down the long hallway to the main [facility] Lobby. The Surgical Waiting Room will be on your Right. Proceed to check in and give them your Name. Directions to Same Day Surgery from the Parking Garage Enter the [facility] lobby and proceed down the dominguez to the left. At the end of the dominguez, turn right. Continue down the long hallway to the main [facility] Lobby. The Surgical Waiting Room will be on your Right. Proceed to check in and give them your Name. [facility] : Contact # after 5pm call Enter [facility] take the C elevator to the 3rd floor and turn right you will see the sign for Surgical check in area and Waiting room – please be seated until ends breakage clerk is at the check in desk. Thank you [facility] Contact # [phone] before 330pm . After 330pm call Enter the hospital at the Main entrance go straight ahead to the registration desk on the left [facility]: Contact # before 4 pm. The telephone number surgical patients should call after 4 pmwith their inquiries is . This is the number for the nursing building insulation supervisor. The individual calling may reach a voicemail, but they should leave a message; the nursing supervisors pager will be alerted that there is a message.For ALL patients, please report to Central Registration BEFORE reporting to the floor on the day of surgery. Registration staff will direct you from there. THANK YOU FOR CHOOSING [facility]!!! PRE-OP PATIENT INFORMATION PRE-SURGICAL CENTER Patient Education BEFORE YOUR SURGERY: -If you become ill with a cold, infection, fever, shingles, chicken pox, or exposure to chicken poxwithin 2 weeks of surgery, call your surgeon's office. -Also, tell your doctor if you are taking aspirin. -You will be called the day before surgery (on Wednesday if your surgery is Wednesday) with the time to be at the hospital. If you have not been called by 7:00 p.m., please call [phone] on the [place]. See above for other campuses. -If you take Glucophage (Metformin), do not take it the evening before surgery. -Do not eat any solid foods, milk products, orange juice, or candy after midnight the night before your surgery. You may have sips of clear liquids (water, apple juice, jell-o, clear soda, Pedialyte,clear tea, or clear coffee) between midnight and two hours before your arrival time, then nothing. That means no water, ice, or chewing gum - nothing. Infants may be breast fed until four hours before arrival time. - If you are having I/O surgery or are a surgical overnight recovery unit patient you will need a responsible adult with you for 24hrs after surgery. Do not drive, operate any appliances and/or machinery or sign legal documents for 24 hours. -Take a bath or shower the evening before or morning of surgery. DAY OF SURGERY: -If you take morning medicine for your heart, blood pressure, breathing, seizures, anxiety, or acidreflux we would like you to take that medicine with a sip of water the morning of surgery. Do not take any other kind of medicine unless the Anesthesiologist tells you to. Do not take any diabetic medicine or insulin. Do not take water pills. If you use inhalers, use them as you normally do and bring them with you. If you take aspirin, anti-inflammatory medication, green tea, Ibuprofen; or any over the counter herbs, vitamins or supplements, speak with your doctors as to whether to stop them before your surgery. -If you have been given a paper identification band when your blood was drawn, bring it with you onthe day of surgery. -Please be at the Surgical Unit on time. Two people may stay with you until you go to the pre-op area. Do not bring small children with you. The nursing staff will tell your family where they may wait. The doctor will speak to your family after the surgery. WHAT TO WEAR: Wear loose, comfortable clothing. Don't wear any jewelry, make-up, contact lenses, nail cymro, or tampons. Do not bring valuables to the hospital, as the medical center cannot be responsible for items lost, stolen, or damaged. Your belongings may be put into a locker or your family may be asked tokeep them. Pediatric patients may bring a favorite blanket or stuffed toy with them. ANESTHESIA: The anesthetic technique provided for you will be specifically chosen to suit your medical condition, age, preference, and surgical procedure, with the goal of providing safety and satisfaction. It will fall into on of these three categories. GENERAL ANESTHESIA: A controlled state of drug induced unconsciousness, which renders the patient insensible to pain and his surrounding. Unfortunately, it also disables important body regulatory mechanisms such as the control of breathing and the control of the circulation of blood. The anesthesia care team will continuously monitor these and during the anesthetic. It will be necessary to place a device in your mouth or throat (after you are unconscious) to keep your breathing passage open as general anesthesia obliterates this normal reflex function of your body. REGIONAL ANESTHESIA: This is a technique by which the Anesthesia Care Team renders the patient insensible to pain by utilizing drugs called local anesthetics to block the conduction of nerve signals to muscles so that the patient will be unable to move the involved body part. The patient is also provided with intravenous sedative drugs so that he sleeps comfortably during the surgery and has little or no memory of it. Spinal anesthesia, epidural anesthesia and peripheral nerve blocks are regional anesthetics. Theseare not painful procedures. During these anesthetics, monitoring of vital breathing and circulatoryfunctions is done continuously. (Epidural anesthesia is also used to provide prolonged pain relief after major surgery and during childbirth). LOCAL ANESTHESIA WITH INTRAVENOUS SEDATION: Anesthesia care team administers sedative and analgesic drugs intravenously to make a patient drowsy, comfortable, and forgetful while the surgeon administers local anesthetic to freeze the area he is operating on. The patient will feel little or no pain, will have no anxiety, and will have little or no memory of the surgical procedure. The anesthesia care team continuously monitors vital breathing and circulatory functions. PRE-OP: You will be taken to the pre-op area where your vital signs (blood pressure, pulse) will be taken. Any preparations that need to be done will be done there. When it is time for your surgery, you willbe taken to the operating room. PARENTS OF PEDIATRIC PATIENTS WILL BE ALLOWED TO STAY WITH THEIR CHILDREN UNTIL THAT TIME. IN AND OUT SURGERY PATIENTS: You will be taken to the In and Out Surgery Unit when you are awake and will go home from there. When your nurse feels you are ready, your family may visit. You will get instructions about your home care before you leave. Arrange to have someone drive you home from the hospital. You may not drive for 24 hours after anesthesia. You must have an adult stay with you at home for 24 hours after your operation. This is very important. If you are not able to do this, your In and Out surgery cannot be done. ADMISSION PATIENTS: You will be taken to your room after your stay in the recovery area. Your family may visit you in your room. If a next day discharge is expected, make arrangements for a truck driver heavy to take you home. BEFORE GOING HOME: You will be given instructions about your home care and your return appointments. OTHER INSTRUCTIONS: MANAGING YOUR PAIN PRE-SURGICAL CENTER Patient Education Managing your pain... Everyone feels and reacts to pain in different ways. How you feel can depend on what happened to you in the past, how worried you are about what is causing your pain now, and other factors. When you are admitted to the hospital, your nurse or doctor will ask you about pain. If you agree, a goal of your treatment will be to minimize and control your pain as much as possible. During your stay, your caregivers will often ask about your pain to make sure the pain level is acceptable. They will also ask where it hurts and how it feels. The three pain scales below are ways that the nurses and doctors can understand how you are feeling. The three scales all mean the same thing, but the first uses words, and second uses pictures, and the third is used with a person who is not able to communicate. The scales start to the left with "0"or no pain and goes up to "10" for the worst possible pain. Here are some words to help you describe your pain: Cramp Sharp Ache Burning Dull Constant Off and on Your health care practitioner will evaluate the way you describe the pain to decide what type of medicine and other pain relief methods to use. When you leave the hospital, your health care practitioner or pharmacist will talk with you about safe ways to take care of the pain at home. Do not be afraid to take care of the pain at home. Do notbe afraid to take pain medicine when you need it, following the directions provided. Short-term useof medicine is not addicting. If you are worried about this, ask your doctor about it. You are the only one who knows how much pain you feel and what makes it feel better. Be honest withyour nurse of doctor. Do not worry about being brave or bothering the nurses. Taking care of pain is an important part of taking care of your health. *Remember: It is very important that your caregivers know if the pain medicine does not help or if your pain suddenly changes. If you are to have surgery or a painful procedure, ask about pain. Knowing how much pain to expect may help you feel more in control and less afraid. Here are some questions you may ask your nurse ordoctor: How much pain should I expect? What is normal? How will the pain be managed? How long does the pain usually last? What pain medicine will I be given? What choices do I have? What are the side effects of the medicine? Will the pain medicine be given to me as a pill, a shot or through my IV (in the vein)? How often can I be given the medicine? Do I have to ask for the medicine when I need it? What do I do if the pain is not as well as controlled as I would like it to be? Make sure you tell your nurse or doctor if: *You are allergic to any pain medicine *You have had pain medicine that did not work well in the past *You have had side effects to pain medicine such as itching, vomiting, or blurred vision If you have any questions or concerns, please ask your health care practitioner or call [facility] [phone]. [email or web address] This information has been prepared to help you and your family better understand what modern anesthesia is , so that you may help make will informed decisions about your care. This information is also provided to guide your completion of the [facility] Anesthesia Consent Form which addresses real, but infrequent, problems associated with anesthesia and as a result is a legal document and written in "legalese." Your body has an amazing communication system composed of a network of billions of nerve cells which interconnect with your brain and spinal cord. This network is called the nervous system and spreads messages throughout your body, including your internal organs and skin surface. Through this network, constantly changing electrochemical signals send information from the outside to your brain, including messages of injury that translate to your brain as pain sensations. Three different types of anesthesia (local, regional, and general) interrupt these signals at specific points. In local anesthesia, anesthetic drugs are usually injected into the tissues to numb justthe specific location of your body requiring minor surgery, such as your hand or foot. Perhaps you need anesthesia for knee surgery. In this case, anesthesia drugs could be injected neara cluster of nerves to numb the area of your body requiring surgery (peripheral nerve blockade.) You may remain awake, sedated, or be given a general anesthetic also. Besides blocking specific nervesto specific parts of your body, another way of giving regional anesthesia sometimes includes blocking nerves by injecting medicines with great exactness around the nerves in your spinal cord (spinal or epidural anesthesia.) Or perhaps, you need heart surgery and general anesthesia is a better choice. General anesthesia temporarily makes you unconscious so that your brain does not perceive any pain signals from the nervous system. All operations and all anesthetics have some small risks and they are dependent upon many factors including the type of surgery and your medical condition. That is why it is important to know about any underlying medical problems, how they are treated and how they can be managed to reduce the risksof anesthesia and surgery. Thus, it is important for anesthesia personnel to ask detailed questionsabout your medical history and to know what prescription medications you are taking, including doses and schedules as well as any over the counter or herbal medicines. Also to reduce risk, it is important for all patients to observe fasting guidelines, which for adults are on solids or non-clear liquids, including candy and chewing gum, for 8 hours prior to elective surgery. Clear liquids, such as water, black coffee and soda can be taken up to two hours prior to elective surgery for most patients. Improving technologies of administering medications for anesthesia and monitoring your bodily functions have made anesthesia much safer over the past 50 years. Each year, more than 26 million people in the [place] have some type of treatment that requires anesthesia. Since 1970, patient outcomes have greatly improved and adverse events are very rare. In the last decade, estimates for the number of deaths attributed to anesthesia have dropped from 1/10,000 to 1/150,000 today. No guarantees can be made to any patient about specific outcomes from anesthesia. However, it is the goal of all members of the Division of Anesthesiology to provide you the best anesthesia care in the safest way and in a safe setting. If you have a concern or problem, we want you to call us, so we can help you. You are welcome to call: DIVISION OF ANESTHESIOLOGY [facility], [place], [place]: [phone] (7:00 a.m. - 4:30 p.m.) [phone] (4:30 p.m. - 7:00 a.m.) [facility] [place], [place]: [phone] (7:00 a.m. - 4:30 p.m.) [phone] (4:30 p.m. - 7:00 a.m.) [facility] [place]: [phone] (7:00 a.m. - 4:30 p.m.) [phone] (4:30 p.m. - 7:00 a.m.) After Hours: 4:30 p.m. - 7:00 a.m. Please ask the final block press operator to page the Anesthesiologist who is on-call. Patient Safety You can make your care safer by being an active, informed patient. It is important that you are involved in your health care. Being a good patient does not mean being a silent one. If you have questions, problems, safety concerns or unmet needs, please let us know. If you would like further clarification of the "Patient Rights and Responsibilities" as they pertain to you, or would like more information regarding our complaint and for grievance process, please contact the applicable facility as listed below: [facility] ([facility]) Patient Advocate LIne: [phone] Dialing from within [facility]: [phone] [facility] ([facility]) (Including the [facility]) Patient Advocate LIne: [phone] Dialing from within [facility]: [phone] [facility] ([facility]) Patient Advocate LIne: [phone] Dialing from within [facility]: [phone] Call the site where you receive care and for the Patient Advocate Line. in this encounter Progress Notes * Anuja Rodrigues RN - 04/22/2017 4:00 PM EST ~SEE ANESTHESIA EVENT FOR PRE-OP ANESTHESIA ASSESSMENT~ ~~~~~~~~~~~~~~~~~~~~~~~~~~~~~~~~~~~~~~~~~~~~~~~~~~~~ NO ANESTHESIA EVAL REQUESTED PER CASE DOCUMENTATION. Patient verbalizes understanding of 1-10 pain scale Patient identified by name/birthdate Optime case procedure confirmed with surgical consent Laterality confirmed as N/a Surgery date at time of Pre-Surgery Center Encounter: 04/30/17 Does the patient have a yellow bar? No The inherent risks of general anesthesia were explained to the pt and he/she verbalizes understanding. Serious problems are rare but he/she has been made aware of these risks. Risks include but are not limited to: nausea, vomiting, sore throat, dental damage, allergic reactions, heart or lung complications, stroke, or . The patient was given the opportunity to ask questions concerning the anesthetic risks, possible complications, and alternatives to the planned anesthetic. Anesthesia Consent form and brochure given for patient review. In an emergency, is patient willing to accept blood products or blood transfusion? yes Preop Eval Requested? No Anuja Rodrigues RN Per rooming tool, patient is complaining of pain: Yes, PATIENT EDUCATION SCREENING Education Screening: Patient What procedure is patient having? Posterior Spinal Fusion L5-Illeum Possible Interbody Fusion L5-S1-2.5 Does patient need pre-op soap? Yes. Surgical soap and general skin cleansing checklist given to patient. Patient educated on procedure to follow using the cleanser, pt/family member states he/she understands. Does Blood Bank order need placed? Yes; order(s) placed by surgeon. Motivation Level: Asks Questions Language Barrier: no Physical Barrier: N/A Patient Preferred Learning Methods: Reading and Lecture LEARNING NEED: Printed Patient Education Given: Preop Information: Adult and Managing your pain Persons present for education: Patient METHOD: One to One OUTCOME: State / Describe / Explain PATIENT INSTRUCTIONS GIVEN: - General Preoperative Instructions Reviewed - Medication Instructions Reviewed - Instructed to stop the following medications prior to day of surgery: STOP - NSAID 7 days., STOP - Aspirin 7 days., STOP - Herbs 10 days. and STOP - Vitamin E 10 days. - NPO Instructions Reviewed - Patient advised to contact Surgeons Office if new onset of cold symptoms, fever, chills within 2 wks of planned surgery. Pt is planning on having surgery as ZPO surgery Verbalizes understanding of education: Yes Health history interview completed. Pre-Surgical Assessment and Education Signature: Anuja Rodrigues RN 04/22/2017 in this encounter Plan of Treatment Upcoming Encounters Date Type Specialty Care Team Description 04/30/2017 Hospital Encounter Operating Room IP Colin Krause MD [address] [facility] [place] [address] 11/01/2017 Office Visit [facility]iology [facility] [address] [facility] [address] Health Maintenance Due Date Last Done [...] of this encounter Implants Implanted Type Area Environmental Web Crawler Device Identifier Expiration Date Model / Serial / Lot [facility] [id number] - [id number] - [id number] Implanted:Qt y: 1 on 01/11/2015 by Colin Krause MD Tissue - Human N/A: Spine Lumbar MUSCULOSKELETAL TRANSPLANT FND 08/18/2016 [id number] / [id number] / Dbx [facility] [id number] - [id number] - [id number] Implanted:Qt y: 1 on 01/11/2015 by Colin Krause MD Tissue - Human N/A: Spine Lumbar MUSCULOSKELETAL TRANSPLANT FND 08/18/2016 [id number] / [id number] / [id number] Straight [id number] Cocr - [id number] Implanted:Qt y: 2 on 01/11/2015 by Colin Krause MD N/A: Spine Lumbar JNJ : DEPUY SPINE [id number] / / Screw 6x40 Poly Si [id number] - [id number] Implanted:Qt y: 1 on 01/11/2015 by Colin Krause MD N/A: Spine Lumbar JNJ : [employer] [id number] / / Screw 6x40 Ti Uni [id number] - [id number] Implanted:Qt y: 8 on 01/11/2015 by Colin Krause MD N/A: Spine Lumbar JNJ : [employer] [id number] / / Screw 5x40 Ti Uni [id number] - [id number] Implanted:Qt y: 2 on 01/11/2015 by Colin Kruase MD N/A: Spine Lumbar JNJ : [employer] [id number] / / Screw 6x45 Ti Uni [id number] - [id number] Implanted:Qt y: 6 on 01/11/2015 by Colin Krause MD N/A: Spine Lumbar JNJ : [employer] [id number] / / Screw 7x45 Ti Uni [id number] - [id number] Implanted:Qt y: 4 on 01/11/2015 by Colin Krause MD N/A: Spine Lumbar JNJ : DEPUY SPINE [id number] / / Screw Set Sng Inner [id number] - [id number] Implanted:Qt y: 20 on 01/11/2015 by Colin Krause MD N/A: Spine Lumbar JNJ : DEPUY SPINE [id number] / / Expedium Ti Sfx 5.5 Lat A2 - [id number] Implanted:Qt y: 1 on 01/11/2015 by Colin Krause MD N/A: Spine Lumbar JNJ : [employer] [id number] / / Expedium Ti Sfx 5.5 Lat A5 - [id number] Implanted:Qt y: 1 on 01/11/2015 by Colin Krause MD N/A: Spine Lumbar JNJ : [employer] [id number] / / as of this encounter Visit Diagnoses Diagnosis Pre-operative examination - Primary Preoperative examination, unspecified Spondylosis of lumbosacral r egion without myelopathy or radiculopathy Lumbosacral spondylosis without myelopathy in this encounter Insurance Payer Benefit Plan / Group Subscriber ID Type Phone Address MEDICARE MEDICARE A AND B [id number] Medicare [place], [place] AARP AARP [id number] [address] [place] [address] as of this encounter
--- OUTSIDE RECORDS SUMMARY | 2023-02-08 02:15 | External Medical Summary | Summary of Care ---
Author Name Unknown Organization [place] [address] Phone Care Team Providers Care Labourers Name Role Phone Casey Rodgers MD Primary Care Provider + [phone] Encounter Details Date Type Department Care Team Description 04/26/2017 Scan Encounter Orthopaedics Spine Surgery, [place] [address] [place] [address] Colin Krause MD [address] [place] [address] <No scans attached> Allergies Active [...] Date Type Specialty Care Team Description 04/30/2017 Surgery Operating Room IP Colin Krause MD [address], [place] [id number] ARTHRODESIS SPINE POSTERIOR LUMBAR 04/30/2017 Hospital Encounter Operating Room IP Colin Krause MD [address], [place] [id number] 11/01/2017 Office Visit Cardiology Sterling Lockhart MD [address] [place] [address] [phone] Health Maintenance Due Date Last Done Comments [...] EVERY 3 YRS- AGE 45 AND ABOVE 04/22/2020 04/22/2017, 04/22/2017, 04/08/2017, Additional history exists DXA-SCREENING EVERY 7 YRS- E SMARTSET# 3348 TO ORDER 12/26/2021 12/26/2014 as of this encounter Implants Implanted Type Area Mountain Bike Guide Device Identifier Expiration Date Model / Serial / Lot Dbx 10 [id number] - [id number] - [id number] Implanted:Qt y: 1 on 01/11/2015 by Colin Krause MD Tissue - Human N/A: Spine Lumbar MUSCULOSKELETAL TRANSPLANT FND 08/18/2016 936330 / [id number] / Dbx 10 [id number] - [id number] - [id number] Implanted:Qt y: 1 on 01/11/2015 by Colin Krause MD Tissue - Human N/A: Spine Lumbar MUSCULOSKELETAL TRANSPLANT FND 08/18/2016 528380 / [id number] / [id number] Straight [id number] Cocr - [id number] Implanted:Qt y: 2 on 01/11/2015 by Colin Krause MD N/A: Spine Lumbar JNJ : DEPUY SPINE [id number] / / Screw 6x40 Poly Si [id number] - [id number] Implanted:Qt y: 1 on 01/11/2015 by Colin Krause MD N/A: Spine Lumbar JNJ : [employer] [id number] / / Screw 6x40 Ti Uni [id number] - [id number] Implanted:Qt y: 8 on 01/11/2015 by Colin Krause MD N/A: Spine Lumbar JNJ : [employer] [id number] / / Screw 5x40 Ti Uni [id number] - [id number] Implanted:Qt y: 2 on 01/11/2015 by Colin Krause MD N/A: Spine Lumbar JNJ : [employer] [id number] / / Screw 6x45 Ti Uni [id number] - [id number] Implanted:Qt y: 6 on 01/11/2015 by Colin Krause MD N/A: Spine Lumbar JNJ : [employer] [id number] / / Screw 7x45 Ti Uni [id number] - [id number] Implanted:Qt y: 4 on 01/11/2015 by Colin Krause MD N/A: Spine Lumbar JNJ : DEPUY SPINE [id number] / / Screw Set Sng Inner [id number] - [id number] Implanted:Qt y: 20 on 01/11/2015 by Colin Krause MD N/A: Spine Lumbar JNJ : DEPUY SPINE [id number] / / Expedium Ti Sfx 5.5 Lat A2 - [id number] Implanted:Qt y: 1 on 01/11/2015 by Colin Krause MD N/A: Spine Lumbar JNJ : [employer] [id number] / / Expedium Ti Sfx 5.5 Lat A5 - [id number] Implanted:Qt y: 1 on 01/11/2015 by Colin Krause MD N/A: Spine Lumbar JNJ : [employer] [id number] / / as of this encounter Insurance Payer Benefit Plan / Group Subscriber ID Type Phone Address MEDICARE MEDICARE A AND B [id number] [facility] [id number] [address] [place] [address] as of this encounter
--- OUTSIDE RECORDS SUMMARY | 2023-02-08 02:15 | External Medical Summary ---
Author Name Unknown Address [address] [id number] Phone Organization K01:[facility] [address] [id number] Laboratory Report Ordering Provider Test Date Status ALBIN CHAUDHARI 04/08/2017 13:06:00 Final Observation Date Value Abnormality Reference Status ESR 04/08/2017 14:19 7 0-20 Fin al Performing Location [facility] [address] [id number]
--- OUTSIDE RECORDS SUMMARY | 2023-02-08 02:15 | External Medical Summary ---
Author Name Unknown Address [address] [facility] [address] Phone Organization K01:[facility] [address] [facility] [address] Laboratory Report Ordering Provider Test Date Status CHIARA LYNN 04/22/2017 16:53:00 Final Observation Date Value Abnormality Reference Status WBC, Total 04/22/2017 17:35 8.31 4.00-10.80 F inal RBC 04/22/2017 17:35 4.63 3.85-5.15 Fin al Hemoglobin 04/22/2017 17:35 15.1 12.0-15.3 Fi nal HCT 04/22/2017 17:35 46.5 Above high normal 36.0- 45.2 Final MCV 04/22/2017 17:35 100.4 Above high normal 81.5- 97.5 Final MCH 04/22/2017 17:35 32.6 27.0-34.0 Fin al MCHC 04/22/2017 17:35 32.5 32.0-36.0 Fin al RDW 04/22/2017 17:35 14.5 11.5-15.5 Fin al Platelets 04/22/2017 17:35 189 140-400 Fin al MPV 04/22/2017 17:35 11.4 Above high normal 6.6-1 1.1 Final Segs 04/22/2017 17:35 65.1 40-75 Fin al Lymphs % 04/22/2017 17:35 26.7 18-42 Fin al Monos 04/22/2017 17:35 4.9 1-11 Fin al Eosinophils 04/22/2017 17:35 2.2 0-6 F inal Basos 04/22/2017 17:35 1.0 0-2 Fin al Immature Granulocyte, Percent 04/22/2017 17:35 0.1 0-2 Final Absolute Segs 04/22/2017 17:35 5.41 1.8-7.7 Final Lymphs, absolute 04/22/2017 17:35 2.22 1.0-4. 8 Final Monos, Abs 04/22/2017 17:35 0.41 0.0-1.1 Fi nal Eos, Abs 04/22/2017 17:35 0.18 0.0-0.7 Fin al Basos, Abs 04/22/2017 17:35 0.08 0.0-0.2 Fi nal Immature Granulocytes, Number 04/22/2017 17:35 0.01 0.0-0.2 Final Performing Location [facility] [address] [facility] [address] [facility] [address]
--- OUTSIDE RECORDS SUMMARY | 2023-02-08 02:15 | External Medical Summary | Summary of Care ---
Author Name Unknown Organization [place] [address] Phone Care Team Providers Care Director Of Medicare Name Role Phone Casey Rodgers MD Primary Care Provider + [phone] Reason for Visit * Reason Comments TEST RESULTS Encounter Details Date Type Department Care Team Description 04/19/2017 Telephone Orthopaedics Spine Surgery, [place] [address] [place] [address] Colin Krause MD [address] [place] [address] TEST RESULTS Allergies Active Allergy Reactions Severity Noted Date [...] older No 01/11/2015 as of this encounter Miscellaneous Notes * Telephone Encounter - Sallie Jarquin OSA - 04/21/2017 3:41 PM EST Appt scheduled * Telephone Encounter - Linda Jarquin PA-C - 04/21/2017 3:07 PM EST Contacted laurie will like to see her tomorrow at 1:00 She is aware * Telephone Encounter - Jovanna Altamirano OSA - 04/21/2017 9:24 AM EST Patient states since she has not received call back she assumes her results are negative, If she does receive a call before the weekend, she will be leaving for [place]. * Telephone Encounter - Jovanna Altamirano OSA - 04/20/2017 3:28 PM EST Patient calling again for test results, she is trying to plan a trip to [place], but can't until she knows results [phone] * Telephone Encounter - Yashira Chaves OSA - 04/19/2017 1:03 PM EST Patient calling to get the results from MRI and CT Scan. Please call patient when results are in. [phone]. in this encounter Plan of Treatment Upcoming Encounters Date Type Specialty Care Team Description 04/30/2017 Hospital Encounter Operating Room IP Colin Krause MD [address] [facility] [place] [address] 11/01/2017 Office Visit Cardiology Sterling [facility]hart MD [address] [facility] [place] [address] [phone] Health Maintenance Due Date Last Done Comments [...] 04/08/2017, Additional history exists DXA-SCREENING EVERY 7 YRS-US E SMARTSET# 3348 TO ORDER 12/26/2021 12/26/2014 as of this encounter Implants Implanted Type Area Communication Specialist Device Identifier Expiration Date Model / Serial / Lot Dbx 10 [id number] - [id number] - [id number] Implanted:Qt y: 1 on 01/11/2015 by Colin Krause MD Tissue - Human N/A: Spine Lumbar MUSCULOSKELETAL TRANSPLANT FND 08/18/2016 358796 / [id number] / Dbx 10 513813 - [id number] - [id number] Implanted:Qt y: 1 on 01/11/2015 by Colin Krause MD Tissue - Human N/A: Spine Lumbar MUSCULOSKELETAL TRANSPLANT FND 08/18/2016 773807 / [id number] / Viper2 Straight [id number] Cocr - [id number] Implanted:Qt y: 2 on 01/11/2015 by Colin Krause MD N/A: Spine Lumbar JNJ : DEPUY SPINE [id number] / / Screw 6x40 Poly Si [id number] - [id number] Implanted:Qt y: 1 on 01/11/2015 by Colin Krause MD N/A: Spine Lumbar JNJ : [employer] [id number] / / Screw 6x40 Ti Uni [id number] - [id number] Implanted:Qt y: 8 on 01/11/2015 by Colin Krause MD N/A: Spine Lumbar JNJ : [employer] [id number] / / Screw 5x40 Ti Uni [id number] - [id number] Implanted:Qt y: 2 on 01/11/2015 by Colin Krause MD N/A: Spine Lumbar JNJ : [employer] [id number] / / Screw 6x45 Ti Uni [id number] - [id number] Implanted:Qt y: 6 on 01/11/2015 by Colin Krause MD N/A: Spine Lumbar JNJ : [employer] [id number] / / Screw 7x45 Ti Uni [id number] - [id number] Implanted:Qt y: 4 on 01/11/2015 by Colin Krause MD N/A: Spine Lumbar JNJ : DEPUY SPINE [id number] / / Screw Set Sng Inner [id number] - [id number] Implanted:Qt y: 20 on 01/11/2015 by Colin Krause MD N/A: Spine Lumbar JNJ : DEPUY SPINE [id number] / / Expedium Ti Sfx 5.5 Lat A2 - [id number] Implanted:Qt y: 1 on 01/11/2015 by Colin Krause MD N/A: Spine Lumbar JNJ : [employer] [id number] / / Expedium Ti Sfx 5.5 Lat A5 - [id number] Implanted:Qt y: 1 on 01/11/2015 by Colin Krause MD N/A: Spine Lumbar JNJ : [employer] [id number] / / as of this encounter Insurance Payer Benefit Plan / Group Subscriber ID Type Phone Address MEDICARE MEDICARE A AND B [id number] Medicare [facility] [id number] [address] [place] [address] as of this encounter
--- OUTSIDE RECORDS SUMMARY | 2023-02-08 02:15 | External Medical Summary ---
Author Name Unknown Address [address] [facility] [place] [address] Phone Organization K01:[facility] [address] [facility] [address] Laboratory Report Ordering Provider Test Date Status ALBIN CHAUDHARI 04/08/2017 13:06:00 Final Observation Date Value Abnormality Reference Status WBC, Total 04/08/2017 13:49 10.44 4.00-10.80 F inal RBC 04/08/2017 13:49 4.49 3.85-5.15 Fin al Hemoglobin 04/08/2017 13:49 14.4 12.0-15.3 Fi nal HCT 04/08/2017 13:49 45.6 Above high normal 36.0- 45.2 Final MCV 04/08/2017 13:49 101.6 Above high normal 81.5- 97.5 Final MCH 04/08/2017 13:49 32.1 27.0-34.0 Fin al MCHC 04/08/2017 13:49 31.6 Below low normal 32.0-3 6.0 Final RDW 04/08/2017 13:49 14.4 11.5-15.5 Fin al Platelets 04/08/2017 13:49 232 140-400 Fin al MPV 04/08/2017 13:49 11.7 Above high normal 6.6-1 1.1 Final Segs 04/08/2017 13:49 71.7 40-75 Fin al Lymphs % 04/08/2017 13:49 20.0 18-42 Fin al Monos 04/08/2017 13:49 5.9 1-11 Fin al Eosinophils 04/08/2017 13:49 1.4 0-6 F inal Basos 04/08/2017 13:49 0.8 0-2 Fin al Immature Granulocyte, Percent 04/08/2017 13:49 0.2 0-2 Final Absolute Segs 04/08/2017 13:49 7.48 1.8-7.7 Final Lymphs, absolute 04/08/2017 13:49 2.09 1.0-4. 8 Final Monos, Abs 04/08/2017 13:49 0.62 0.0-1.1 Fi nal Eos, Abs 04/08/2017 13:49 0.15 0.0-0.7 Fin al Basos, Abs 04/08/2017 13:49 0.08 0.0-0.2 Fi nal Immature Granulocytes, Number 04/08/2017 13:49 0.02 0.0-0.2 Final Performing Location [facility] [address] [facility] [address]
--- OUTSIDE RECORDS SUMMARY | 2023-02-08 02:15 | External Medical Summary | Summary of Care ---
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 Bed Name Role Phone Karissa Rodgers MD Primary Care Provider + [phone] Reason for Visit * Auth/Cert (Within 10 days (routine)) Status Reason Specialty Diagnoses / Procedures Referre d By Contact Referred To Contact Diagnoses Back pain Procedures LUMBAR SPINE FUSION, POSTEROLATERAL LUMBAR SPINE FUSION, POST INTERBODY Encounter Details Date Type Department Care Team Description 04/30/2017 - 05/04/2017 Hospital Encounter AM 6, [facility] 6th Floor [address] [place] [address] Colin Krause MD [address] [place] [address] OR Surgeon Allergies Active Allergy Reactions Severity Noted Date [...] needed for pain 90 Tab 0 05/04/2017 Active hydrocodone-acetami nophen 5-300 mg per tab (VICODIN) 5-300 MG per tablet Take 1 Tab by mouth every 6 hours as needed for Pain, Mild. 04/30/2017 Discontinued as of this encounter Active Problems [...] Vital Sign Reading Time Taken Blood Pressure 132/70 05/04/2017 7:00 AM EST Pulse 83 05/04/2017 7:00 AM EST Temperature 36.9 °C (98.5 °F) 05/03/2017 1 1:23 PM EST Respiratory Rate 16 05/04/2017 7:00 AM EST Oxygen Saturation 92% 05/04/2017 7:0 0 AM EST Inhaled Oxygen Concentration - - Weight 50.3 kg (110 lb 14.3 oz) 017 7:59 AM EST Height 152.4 cm (5') 04/30/2017 7:59 AM EST Body Mass Index 21.66 04/30/2017 7:59 AM EST in this encounter Functional Status [...] older No 04/30/2017 as of this encounter Discharge Instructions * Discharge Instr - LOUIE - Lavonne Slade PA-C - 04/30/2017 2:41 PM EST Formatting of this note may be different from the original. Discharge Date: 05/04/2017 You may call Doctor Krause of the department of [facility] at [phone] during business hours for any questions or test results. After hours emergencies call [facility] at [phone] and kit schwartzd. The information below provides you with the instructions and the list of medications you need to betaking following discharge from the hospital. If you have any questions, please ask before leaving.Please carry this letter with you when you see your doctor in the clinic. If you have questions, you can reach us at the numbers above. Brief summary of your inpatient care: Revision fusion Your primary diagnosis at discharge was lumbar spondylosis Your doctors during this hospitalization included: Jimi Inpatient test results pending: None Operations & Procedures: L5-ileum fusion Complications: none significant Advance Directive Documented: Advance Directive Does the Patient have an Advance Directive? No Date you may return to work or school: to be addressed at follow up appointment These follow-up appointments have been scheduled or are in the process of being scheduled. If you have questions about your appointments, please call . When asked to state the name of the physician, please say "Hospital Discharge". Future [facility] Appointments Date Time Provider Department 11/01/2017 10:15 AM Sterling Lockhart MD Cardiology, [facility] There are no future non-[facility] appointments scheduled at this time. DISCHARGE INSTRUCTIONS LUMBAR SPINE SURGERY Hygiene · Your incision is covered with white steri-strips. Leave them intact. They will dry up and fall off in one to two weeks. Keep the incision open to the air after the cover dressing is removed. · You may shower on the second post-operative day. Do not direct water onto the incision. Keep theincision dry when showering, using tape and Saran Wrap or a piece of a plastic bag. Continue this for one week. · Do not apply any creams, powder or oils on or near the incision. Diet · Resume pre-surgical diet. Activities · No heavy lifting (greater than 5-10 pounds). · No strenuous activity. · You may go up and down stairs as tolerated. You may want to inquire about renting a commode if you have to climb the stairs to use the bathroom. · It is advisable to take short frequent walks. Walks outside are fine, weather permitting. Start with a 5 minute walk and gradually increase the length as you are able to tolerate. Your walking should not increase your back pain or cause leg pain. If the pain increases, then stop to rest and decrease the distance or time on the next walk. · You may sit for brief periods of time. Sitting increases the stress on your incision and the muscle spasms in your back. It is better to walk or lie down to rest. · Choose a firm, hard-backed chair on which to sit. Continue to logroll while in bed. Continue to get out of bed by turning first onto your side, then pushing up onto your elbow while lowering your feet over the side of the bed. · When you sleep, avoid lying on your stomach for incisional comfort. · Do not bend over at the waist. If you must bend, do so at the knees and keep your back straight while stooping and straightening up. · No driving or returning to work until your first post-op visit. Although, you may be a passengerin a vehicle. Your activity progression will be evaluated at the time of your post-op visit. · Avoid heavy house and garden work (lifting laundry, running the vacuum, digging, shoveling etc). · Only do exercises while lying on your back in bed. Do at least three sets of each per day starting one week after surgery: · “Quad sets” – Tighten the muscles in the front of your thigh. Hold for 3 seconds and relax. Repeat 5 times and work up to 10 times. · “Abdominal” – Tighten your stomach muscles. Hold for 3 seconds and then relax. Repeat 5 times and work up to 10 times. · “Ankle pumps” – With straight knees pull your toes back toward your head as you feel your calf muscle stretch, then point your toes down toward the floor. Repeat 10 times and work up to 20 times. Medications · Medication has been prescribed for you in order to help relieve your pain. If you need it, use it. If you have no pain, it is not necessary to take the medication. Your discomfort should graduallylessen over the first seven to ten days. · Some pain medications may cause constipation. The use of itsn-lge-ougxsni laxatives is safe (Ex-lax, Correctol, Colace, Milk of Magnesia). When to call the office · Please call [facility] at [phone] if you notice any of the following symptoms: · Redness, swelling, warmth, tenderness or drainage from your incision. · Worsening numbness, tingling or changes in sensation or strength of your arms or legs. · Difficulty controlling your bladder or bowels. · Body temperature over 100 F for more than 2 days. Follow-up · If you have any specific questions not covered in these instructions, please feel free to call the office and check with the physician staff assistant or doctor. If you have an urgent question/issue after normal business hours, please call the shipping and receiving operator and ask for the Orthopaedic surgeon agronomy supervisor. If you feel suicidal or homicidal, please call the crisis hotline at [phone] ([phone]). in this encounter Progress Notes * Lavonne Slaed PA-C - 05/04/2017 10:05 AM EST Ortho Spine Name: Reggie Campos Date: 05/04/2017 Subjective: Pain controlled. Getting around OK. Complains on nonpainful bilateral foot/ankle edema this AM. Eating, drinking, urinating, passing gas, + BM Objective: BP 132/70 | Pulse 83 | Temp (Src) 98.5 (Oral) | Resp 16 | Ht 5' 0" (1.524m) | Wt 110 lbs 14.26 oz (50.300kg) | BMI 21.66 kg/m² | BSA 1.46 m² | SaO2 92% Exam Gen: NAD MSK: LE: 5/5 in hips, knee, ankle, great toes, palpable pulses, SILT nontender foot/ankle edema b/l Raymond in place Lab - Hgb 9.3 Assessment: s/p Supriyaik-PSF L5 ileum, PLIF L5-S1-04/30 Plan: Weight bearing: As tolerated Dressings: nursing staff can change PRN PT/OT Pain control PRN Antibiotics: vanc and zosyn to d/c prior to d/c TEDs, SCDs DVT ppx: none Diet: regular Disposition: pending Appreciate medicine recommendations; medically cleared for d/c home Dispo: d/c home today, declined HH KWAKU FowlerC Physician [employer] Net Developer - Certified [facility] [phone] 05/04/17 1009 * Lavelle James MD - 05/04/2017 7:42 AM EST Formatting of this note may be different from the original. CONSULT FOLLOW UP PROGRESS NOTE - General Internal Medicine [facility] [address] [facility] [address] Name: Reggie Campos Location: [place] [id number] Date: 05/04/2017 Time: 7:42 AM SUBJECTIVE: The patient feels better, pain is controlled, has been afebrile for 2 days, denies nausea, vomiting, has not moved his bowels for days OBJECTIVE: Most Recent Vital Signs: BP 131/76 (05/03/17 11:23 PM) Pulse 70 (05/03/17 11:23 PM) Temp 36.9 °C (98.5 °F) (05/03/17 11:23 PM) Resp 16 (05/03/17 11:23 PM) Vital Signs Last 24 Hours: Systolic BP: Most Recent Systolic BP Av mmHg Min: 111 mmHg Max: 140 mmHg Temperature: Most Recent Temperature Av.9 C Min: 36.83 C Max: 36.94 C Pulse: Pulse Av.5 BPM Min: 70 BPM Max: 85 BPM Respirations: Resp Av Resp/min Min: 16 Resp/min Max: 16 Resp/min SpO2: SpO2 Av.8 %O2 Min: 93 %O2 Max: 97 %O2 Intake/Output Summary (Last 24 hours) at 05/04/17 0742 Last data filed at 05/04/17 0301 Gross per 24 hour Intake 1024.4 ml Output 300 ml Net 724.4 ml No data found. Constitutional: normal, no acute distress HEENT: normal: normocephalic, atraumatic Eyes: PERRLA, sclera and conjunctiva normal Neck: normal range of motion, JVP normal CV: normal rate and rhythm, no murmur, gallops or rubs Chest: normal respiratory effort, lungs clear to auscultation, no wheezes, no crackles Abdomen: normal: soft, non-tender, non distended, bowel sounds normal Back: Dry dressing in place Extremities: no cyanosis, no leg edema Skin: warm, dry, intact Neuro: alert, oriented to person, place, and time, cranial nerves intact LAB DATA: Labs reviewed as indicated below: BLOOD COUNT: WBC, Hgb, Platelets (see below for most recent value): Lab Results Component Value Date/Time WBC 8.43 05/04/2017 05:36 AM HGB 9.3 (L) 05/04/2017 05:36 AM PLT 127 (L) 05/04/2017 05:36 AM IMPRESSION: 71 year old female with PMHx significant for HTN, spinal stenosis, tobacco abuse, GERD,S/P T7-L4 posterior spinal fusion in January,, admitted to the orthopedic service on 04/30/2017 for elective PSF L5 ileum, PLIF L5-S1 on 04/30/2017. Hospital Medicine was consulted on 05/02/2017 for lethargy, fever and anemia. Active Problems: 1. Spinal stenosis, status post PSF L5 ileum, PLIF L5-S1 on 04/30/2017. 2. Postoperative anemia due to acute blood loss 3. Postoperative lethargy (resolved) 4. SIRS (resolved) 5. HTN 6. Tobacco abuse 7. GERD (gastroesophageal reflux disease) 8. Thrombocytopenia RECOMMENDATIONS: Pain management, perioperative antibiotics and DVT prophylaxis per primary service Lethargy resolved, she continues to be alert and oriented Her postop hemoglobin dropped to 6.3 due to blood loss, transfused 2 units of PRBC, hemoglobin today stable at 9.3 The patient spiked fever soon after midnight on 05/02/2017, concerning for infection Vs SIRS Infection workup remains negative with normal WBC, would stop antibiotics prior to discharge Continue bowel regimen, encourage mobilization, OOB Will sing off, call if questions 30 minutes were spent in the care of this patient. More than half of my time was spent counseling the patient or family. Lavelle Banegas MD [facility] [phone] 05/04/17 0750 * Geller Jaylen S, [facility] - 05/04/2017 2:33 AM EST Formatting of this note may be different from the original. PHARMACY PHARMACOKINETIC CONSULT [address] [address] Name: Reggie Campos [address] Date: 05/04/2017 Time: 2:33 AM Requesting Service: Internal medicine Reason for Consult: Vancomycin per pharmacy Bacteria being treated: Unknown - empiric Source of infection: unknown Hospital Problem List: Patient Active Problem List Diagnosis Code • Bilateral low back pain without sciatica M54.5 • Postoperative anemia due to acute blood loss D62 • HTN (hypertension) I10 • Tobacco abuse Z72.0 • Spinal stenosis M48.00 • GERD (gastroesophageal reflux disease) K21.9 • SIRS (systemic inflammatory response syndrome) (HCC) R65.10 • Thrombocytopenia (HCC) D69.6 Medications being managed: Vancomycin Day of therapy = day number 2 Impression: Patient is a 71 y.o. Female being treated with vancomycin empirically for sepsis. She was previously being dosed at 750 mg q12 hours. There is no growth to date in her blood and urine cultures. Patient Assessment and Findings: Most Recent Vital Signs: BP 131/76 (05/03/17 11:23 PM) Pulse 70 (05/03/17 11:23 PM) Temp 36.9 °C (98.5 °F) (05/03/17 11:23 PM) Resp 16 (05/03/17 11:23 PM) Vital Signs Last 24 Hours: Systolic BP: Most Recent Systolic BP Av mmHg Min: 111 mmHg Max: 140 mmHg Temperature: Most Recent Temperature Av.8 C Min: 36.56 C Max: 36.94 C Pulse: Pulse Av.8 BPM Min: 70 BPM Max: 85 BPM Respirations: Resp Av Resp/min Min: 16 Resp/min Max: 16 Resp/min SpO2: SpO2 Av %O2 Min: 93 %O2 Max: 97 %O2 LABS: Labs reviewed as indicated below: SCr = 0.4 mcg/mL Vancomycin trough level (05/03/2017 2332) = 9.3 mcg/mL Recommendations/Plan: 1.) This patient's vancomycin trough level is below our goal range of 15 to 20 mcg/mL. We will increase her vancomycin dosing to 1 gram q12 hours, and we will repeat a vancomycin trough level with the fourth or fifth dose of this new regimen. We will continue to monitor her cultures, renal function, and progress on therapy. Contact the Pharmacy at [facility] [place] [address] if there are any questions. Jaylen Geller [facility] Pharmacist [facility] 05/04/17 0238 * Lavelle James MD - 05/03/2017 7:53 AM EST Formatting of this note may be different from the original. CONSULT FOLLOW UP PROGRESS NOTE - General Internal Medicine [place] [address] Name: Reggie Campos [place] [id number] Date: 05/03/2017 Time: 7:57 AM SUBJECTIVE: The patient was seen in bed this morning, feels better, has been afebrile for the last 24 hours, denied dyspnea, chest pain, abdominal pain, nausea, vomiting, her pain is well controlled OBJECTIVE: Most Recent Vital Signs: BP 127/59 (05/03/17 6:36 AM) Pulse 80 (05/03/17 6:36 AM) Temp 36.6 °C (97.8 °F) (05/03/17 6:36 AM) Resp 16 (05/03/17 6:36 AM) Vital Signs Last 24 Hours: Systolic BP: Most Recent Systolic BP Av mmHg Min: 99 mmHg Max: 133 mmHg Temperature: Most Recent Temperature Av.2 C Min: 36.56 C Max: 37.78 C Pulse: Pulse Av.5 BPM Min: 77 BPM Max: 96 BPM Respirations: Resp Av.2 Resp/min Min: 16 Resp/min Max: 18 Resp/min SpO2: SpO2 Av.5 %O2 Min: 96 %O2 Max: 99 %O2 Intake/Output Summary (Last 24 hours) at 05/03/17 0757 Last data filed at 05/03/17 0600 Gross per 24 hour Intake 3278.2 ml Output 550 ml Net 2728.2 ml Patient Vitals for the past 72 hrs: Weight 04/30/17 0759 50.3 kg (110 lb 14.3 oz) Constitutional: normal, no acute distress HEENT: normal: normocephalic, atraumatic Eyes: PERRLA, sclera and conjunctiva normal Neck: normal range of motion, JVP normal, no adenopathy CV: normal rate and rhythm, no murmur, gallops or rubs Chest: normal respiratory effort, lungs clear to auscultation, no wheezes, no crackles Abdomen: normal: soft, non-tender, non distended, bowel sounds normal Back: Dry dressing in place Extremities: no cyanosis, no leg edema Skin: warm, dry, intact Neuro: alert, oriented to person, place, and time, cranial nerves intact LAB DATA: Labs reviewed as indicated below: CHEMISTRY: BUN, Creatinine, GFR Estimated, Sodium, Potassium, Chloride, Carbon Dioxide, Glucose, Calcium (see below for most recent value): Lab Results Component Value Date/Time BUN 7 05/03/2017 06:51 AM CREAT 0.4 (L) 05/03/2017 06:51 AM GFRESTIMATED >60.0 05/03/2017 06:51 AM NA 142 05/03/2017 06:51 AM POTASSIUM 3.6 05/03/2017 06:51 AM CL 107 05/03/2017 06:51 AM CO2 26 05/03/2017 06:51 AM GLU 106 05/03/2017 06:51 AM CA 8.0 (L) 05/03/2017 06:51 AM BLOOD COUNT: WBC, Hgb, Platelets (see below for most recent value): Lab Results Component Value Date/Time WBC 7.67 05/03/2017 06:51 AM HGB 9.0 (L) 05/03/2017 06:51 AM PLT 103 (L) 05/03/2017 06:51 AM IMPRESSION: 71 year old female with PMHx significant for HTN, spinal stenosis, tobacco abuse, GERD,S/P T7-L4 posterior spinal fusion in January,, admitted to the orthopedic service on 04/30/2017 for elective PSF L5 ileum, PLIF L5-S1 on 04/30/2017. Hospital Medicine was consulted on 05/02/2017 for lethargy, fever and anemia. Active Problems: 1. Spinal stenosis, status post PSF L5 ileum, PLIF L5-S1 on 04/30/2017. 2. Postoperative anemia due to acute blood loss 3. Postoperative lethargy (resolved) 4. SIRS (systemic inflammatory response syndrome) 5. HTN 6. Tobacco abuse 7. GERD (gastroesophageal reflux disease) 8. Thrombocytopenia RECOMMENDATIONS: Pain management, perioperative antibiotics and DVT prophylaxis per primary service Her lethargy (now resolved) was most likely multifactorial secondary to anemia, narcotics, transient hypotension Postoperative hemoglobin dropped to 6.3, transfused 2 units of PRBC, hemoglobin today 9.0 Check daily CBC and transfuse if hemoglobin < 7.0 The patient spiked fever soon after midnight on 05/02/2017, there was concern for infection versus SIRS Continue empiric antibiotics (Zosyn and vancomycin) pending cultures and sensitivities. If culturesare negative would stop antibiotics Continue incentive spirometry and get out of bed D/C IV fluid 30 minutes were spent in the care of this patient. More than half of my time was spent counseling the patient or family. Lavelle Banegas MD [facility] [phone] 05/03/17 0757 * Drake Goldberg MD - 05/03/2017 7:18 AM EST Ortho Spine Name: Reggie Campos Date: 05/03/2017 Subjective: Pain controlled. No numbness or tingling. Eating, drinking, urinating, passing gas. Did not get up with PT yesterday, encourage to today. Objective: BP 127/59 | Pulse 80 | Temp (Src) 97.8 (Oral) | Resp 16 | Ht 5' 0" (1.524m) | Wt 110 lbs 14.26 oz (50.300kg) | BMI 21.66 kg/m² | BSA 1.46 m² | SaO2 96% Exam Gen: NAD MSK: LE: 5/5 in hips, knee, ankle, great toes, palpable pulses, SILT Drain removed, output low Lab - blood and urine cultures pending Assessment: s/p Jimi-PSF L5 ileum, PLIF L5-S1-04/30 Plan: Weight bearing: As tolerated Dressings: Changed, nursing staff can change PRN PT/OT Pain control - will dc LEAF STRIPPER Antibiotics: vanc and zosyn per medicine consult TEDs, SCDs DVT ppx: none Diet: regular Disposition: pending Appreciate medicine recommendations Pertinent details to be discussed with attending, Dr. Jimi Goldberg MD Resident [facility] [phone] 05/03/17 0723 * Jaylen Geller, [facility] - 05/02/2017 5:08 AM EST Formatting of this note may be different from the original. PHARMACY PHARMACOKINETIC CONSULT [address] [address] Name: Reggie Campos Location: [facility] Date: 05/02/2017 Time: 5:08 AM Requesting Service: Internal medicine Reason for Consult: Vancomycin per pharmacy Bacteria being treated: Unknown - empiric Source of infection: unknown Hospital Problem List: Patient Active Problem List Diagnosis Code • Bilateral low back pain without sciatica M54.5 • Postoperative anemia due to acute blood loss D62 • HTN (hypertension) I10 • Tobacco abuse Z72.0 • Spinal stenosis M48.00 • GERD (gastroesophageal reflux disease) K21.9 • SIRS (systemic inflammatory response syndrome) ([facility]) R65.10 • Thrombocytopenia ([facility]) D69.6 Medications being managed: Vancomycin Day of therapy = day number 1 Impression: Patient is a 71 y.o. Female being started on vancomycin empirically for fever and possible sepsis. Patient Assessment and Findings: Most Recent Vital Signs: BP 109/55 (05/02/17 2:00 AM) Pulse 106 (05/02/17 12:13 AM) Temp 38.3 °C (101 °F) (05/02/17 2:00 AM) Resp 18 (05/02/17 12:13 AM) Vital Signs Last 24 Hours: Systolic BP: Most Recent Systolic BP Av.9 mmHg Min: 90 mmHg Max: 138 mmHg Temperature: Most Recent Temperature Av.4 C Min: 36.72 C Max: 38.78 C Pulse: Pulse Av.9 BPM Min: 57 BPM Max: 106 BPM Respirations: Resp Av.2 Resp/min Min: 16 Resp/min Max: 18 Resp/min SpO2: SpO2 Av.5 %O2 Min: 92 %O2 Max: 100 %O2 LABS: Labs reviewed as indicated below: SCr = 0.5 mcg/mL Recommendations/Plan: 1.) We will give this patient 1250 mg of vancomycin x 1 dose, followed by a standing dose of 750 mgq12 hours. Our goal vancomycin trough level is 15 to 20 mcg/mL, and we will check a trough level with approximately the fourth dose. We will continue to monitor her cultures, renal function, and progress on therapy. Contact the Pharmacy at extension [phone] if there are any questions. Jaylen Geller [facility] Pharmacist [facility] 05/02/17 0511 * Steven Mata MD - 05/02/2017 4:41 AM EST Ortho Spine Name: Reggie Campos Date: 05/02/2017 Subjective: Patient had chest pain with dizziness and fevers. Fevers maxed at 38.3 and had a hemoglobin of 6.3.Work-up is by medicine is underway. Receiving blood. Objective: BP 109/55 | Pulse 106 | Temp (Src) 101 (Oral) | Resp 18 | Ht 5' 0" (1.524m) | Wt 110 lbs 14.26 oz (50.300kg) | BMI 21.66 kg/m² | BSA 1.46 m² | SaO2 92% Exam Gen: NAD, sleeping MSK: LE: 5/5 in hips, knee, ankle, great toes, palpable pulses, SILT Drain intact 80 ml out Assessment: s/p Jimi-PSF L5 ileum, PLIF L5-S1-04/30 Plan: Weight bearing: As tolerated Dressings: Changed, nursing staff can change PRN PT/OT Pain control Antibiotics: periop TEDs, SCDs DVT ppx: none Diet: regular Disposition: pending Appreciate medicine recommendations Pertinent details to be discussed with attending, Dr. Jimi Mata MD Resident [facility] [phone] 05/02/17 8635 * Drake Goldberg MD - 05/01/2017 7:02 AM EST Ortho Spine Name: Reggie Campos Date: 05/01/2017 Subjective: Pain controlled. Leg pain resolved. No weakness. Drinking. urinating Objective: BP 96/50 | Pulse 65 | Temp (Src) 98.4 (Oral) | Resp 16 | Ht 5' 0" (1.524m) | Wt 110 lbs 14.26 oz (50.300kg) | BMI 21.66 kg/m² | BSA 1.46 m² | SaO2 99% Exam Gen: NAD, sleeping MSK: LE: 5/5 in hips, knee, ankle, great toes, palpable pulses, SILT Drain intact 50 ml out Assessment: s/p Jimi-ATIF L5 ileum, PLIF L5-S1-04/30 Plan: Weight bearing: As tolerated Dressings: reinforce PRN, ortho to change POD# 2 PT/OT Pain control Antibiotics: periop TEDs, SCDs DVT ppx: none Diet: regular Disposition: pending Pertinent details to be discussed with attending, Dr. Jimi Goldberg MD Resident [facility] [phone] 05/01/17 0706 in this encounter H&P Notes * Page Goldstein PA-C - 04/30/2017 7:37 AM EST Formatting of this note may be different from the original. ORTHOPAEDIC SPINE SURGERY OUTPATIENT NOTE 04/22/2017 HISTORY OF PRESENT ILLNESS: Reggie Campos is a 71-year-old female, well known to Dr. Gutierrez, who is status post T7-L4 posterior spinal fusion performed in January of 2015. Initially,she had done really well now. Now, she started to develop lumbar back pain as well as some thoracicback pain. The main issue for her though is her lumbar spine pain at this time. Recently has had a C T scan and an MRI, which reveal some adjacent segment degeneration, both proximally and distally. The pain has gotten to the point where she would she would like to proceed with revision surgery. Thepain in her low back does radiate to the lower extremities at times. Denies any significant numbness, paresthesias of the bilateral lower extremities. Denies any bowel or bladder issues. PAST MEDICAL HISTORY: No past medical history on file. PAST SURGICAL HISTORY: T7 through L4 posterior spinal fusion in January 2015. ALLERGIES: Hydrochlorothiazide, metronidazole. SOCIAL HISTORY: The patient is a half pack a day smoker. Denies alcohol use. PHYSICAL EXAM: General: A 71-year-old female, who appears her stated age, alert and oriented x3. Pleasant and cooperative. Answers all questions appropriately. In no acute distress. HEENT: Normocephalic, atraumatic. Cardiac: Regular rate. S-1, S-2 normal in intensity. No murmurs, rubs, or gallops. Pulmonary: Normal work of breathing. Harsh breath sounds but clear to auscultation. No rales, rhonchi, or wheezes. Abdomen: Soft, nondistended. Musculoskeletal: Examination of the bilateral lower extremities revealed 5/5 strength ankle dorsiflexion, plantarflexion, EHL, knee extension, hip flexion. Sensation intact to light touch L2-S1. Bilateral upper extremities show 5/5 strength. Sensation intact to light touch throughout. IMAGING: CT scan and MRI of her lumbar and thoracic spine were reviewed. Show hardware in good position. Some evidence of haloing around the L4 screws. Some adjacent segment degeneration inferiorly as well as proximally. Proximally, there is kyphosis at the T6 vertebral body. Distally, there is some disk herniation of the L3-4 disk as well as some disk degeneration of L4-5. ASSESSMENT: 71-year-old female status post T7 through L4 posterior spinal fusion with adjacent segment degeneration. PLAN: At this time due to the patient's pain and discomfort, we are going to proceed with revision surgery. Our plan will be to begin distally and perform an L4 hardware removal with extension of posterior spinal fusion to the pelvis and possible decompression, possible interbody fusion at L3-4, L4-5, L5-S1 if necessary. The ultimate plan will be decided by Dr. Krause. Consent was obtained today. All questions were answered. The patient is in agreement with the treatment plan. Preoperative laboratory studies were ordered today. She will see our presurgery clinic today as well. Yoeliclens scrub and all preoperative details were provided as were able today. Surgery will be scheduled for . The patient was seen and discussed with Dr. Krause, who formulated this plan of care. MD Colin Coreas MD Spine Surgery, Scoliosis Surgery Adult and Pediatric TRISTIAN/THERESE: Doc#: [id number] Progress Notes Drake Haro MD (Resident) • • Orthopaedic Surgery Please see dictated note for documentation on this encounter. [facility] Drake Haro MD 04/22/2017 2:42 PM Hibiclens scrub was given. Nasal swab was performed. Presurgical education was completed at today's visit. Page Goldstein PA-C Physician [employer] Developer - Certified [facility] [phone] 04/30/17 0737 in this encounter Procedure Notes * Luis Guerra RRT - 04/30/2017 6:57 PM EST Associated Order(s): INCENTIVE SPIROMETER DEVICE-GEN; INCENTIVE SPIROMETRY-GEN TREATMENT / PROCEDURE NOTE - Respiratory Care Services [place] [address] Name: Reggie Campos Location: [facility]/A Date: 04/30/2017 Time: 6:57 PM Date and Time of Procedure: 04/30/2017 at 6:57 PM The following was performed, Non-Medicated Procedure: Incentive Spirometry. Achieved IC: 1.25(L). and Incentive Spirometer Device was issued / replaced. Lung Sounds were inspiratory and expiratory, diminished bilaterally. Cough and Sputum: An effective cough produced a no sputum. No Additional Treatment/Procedure. Luis Guerra RRT Respiratory Therapist [facility] [phone] 04/30/17 1858 in this encounter Consult Notes * Nik Moscoso MD - 05/02/2017 1:07 AM EST Associated Order(s): GENERAL INTERNAL MEDICINE CONSULT IP Formatting of this note may be different from the original. CONSULT - Medicine [place] [address] Name: Reggie Campos [facility] Date: 05/02/2017 Time: 1:08 AM Date and Time Patient was Seen: 05/02/2017 at 1:38 AM PRIMARY SERVICE: Orthopedics REQUESTING SERVICE: Orthopedics REASON FOR CONSULT: "Ortho resident in surgery, requesting medicine consult for fever and lethargy" HISTORY OF PRESENT ILLNESS: Mrs. Campos is a 71 year old female, admitted to Orthopedic Surgery on 04/30/2017 for revision of T7-L4 posterior spinal fusion (initial surgery in 01/2015). She is currently POD2 for surgery consisting of hardware removal L4, complete laminectomy L4-S1, complete diskectomy L4-5, L5-S1 with posterior interbody fusion L4-5, L5-S1, posterior lateral fusion L4 to the ilium using local autogenous bone graft, cancellous allograft. EBL was 750 cc. Paged by ORIANA Mclain "[facility]AM 654 pt is febrile 101.8 F oral, chest pain now diminished, please come and assess patient." Went to the bedside to evaluate patient. She is currently lying in bed, fully alert and oriented, although does appear very tired. She denies any dizziness/lightheadedness, chest pain (did have some left-sided discomfort that resolved within a few minutes), SOB or abdominal pain currently. Per RN, she has been retaining some urine and hasbeen requiring straight cath. Patient denies any dysuria when she is able to urinate on her own. She states her last BM was on evening. Reviewed LEAF STRIPPER use with RN, who states since 19:00 last evening, she has used (5) doses of 0.2 mg Dilaudid, no basal. Past Medical History: Diagnosis Date • Chronic headache • GERD (gastroesophageal reflux disease) • Hiatal hernia • Hypertension • Mitral valve prolapse • Pancreatitis • Spinal stenosis • Tobacco abuse • Ulcer of upper gastrointestinal tract The past surgical history is notable for: Past Surgical History: Procedure Laterality Date • LUMBAR SPINE FUSION, POSTEROLATERAL N/A 01/11/2015 [place]RODES[place]INE [place]ERIOR [place] [facility] [place] REVISE/REMOVE SPINAL NEURORECEIVER N/A 01/11/2015 REVISION OR REMOVAL IMPLANTED SPINAL NEUROSTIMULATOR performed by Colin Krause MD [place] [facility] [place] • THORAX SPINE FUSION, POSTEROLATERAL N/A 01/11/2015 ARTHRODESIS SPINE POSTERIOR THORACIC performed [place] Colin Krause [place] [facility] [place] • TOTAL HYSTERECTOMY The social history is notable for: Social History Substance Use Topics • Smoking status: Current Every Day Smoker Packs/day: 0.25 Years: 50.00 Types: Cigarettes Start date: 09/04/1965 • Smokeless tobacco: Never Used • Alcohol use No The patient's family history is notable for: No family history on file. The patient's allergies include: Hctz [hydrochlorothiazide] and Metronidazole Prior to admission medications reviewed in EPIC. PHYSICAL EXAMINATION: Most Recent Vital Signs: BP 138/56 (05/02/17 12:13 AM) Pulse 106 (05/02/17 12:13 AM) Temp 38.8 °C (101.8 °F) (05/02/17 12:13 AM) Resp 18 (05/02/17 12:13 AM) Vital Signs Last 24 Hours: Systolic BP: Most Recent Systolic BP Av.2 mmHg Min: 90 mmHg Max: 138 mmHg Temperature: Most Recent Temperature Av.2 C Min: 36.61 C Max: 38.78 C Pulse: Pulse Av.9 BPM Min: 57 BPM Max: 106 BPM Respirations: Resp Av.2 Resp/min Min: 16 Resp/min Max: 18 Resp/min SpO2: SpO2 Av.3 %O2 Min: 92 %O2 Max: 100 %O2 GENERAL: Chronically ill-appearing, appears very tired, NAD HEENT: Normocephalic, atraumatic, PERRL, EOMi, throat non-edematous or erythematous, mucous membranes dry NECK: Normal ROM, nontender, trachea midline, lymph nodes not palpable, no JVD, no carotid bruit, bounding neck pulses CV: S1/S2 present, tachycardic, no M/R/G RESPIRATORY: LCAB, no wheezes or crackles appreciated ABDOMEN: +BSs, soft, NDNT EXTREMITIES: WWP, no C/C/E, 2+ pulses NEURO: AAOx3, CN II-XI grossly intact, motor and sensory function intact with no focal deficits LABS: Labs reviewed as indicated below: 04/22/2017 16:53 05/01/2017 05:46 CBC/DIFF Rpt (A) Rpt (A) WBC 8.31 7.29 RBC 4.63 2.17 (L) HGB 15.1 7.1 (L) HCT 46.5 (H) 22.3 (L) PLATELET COUNT 189 141 05/01/2017 05:46 BUN 16 CREATININE 0.5 E GLOM FILT RATE >60.0 SODIUM 141 POTASSIUM 4.1 CHLORIDE 108 (H) CO2 24 GLUCOSE 96 CALCIUM 7.4 (L) ANION GAP 9 IMPRESSION: Mrs. Campos is a 71 year old female, currently POD2 from revision of spinal fusion, now with fevers and increased lethargy. DDx includes sepsis (+fever, +tachycardic), acute blood loss anemia (Hb drop 8 g post-operatively), overdose (on LEAF STRIPPER pump, less likely as she only used 5 doses inthe past 8 hours), hypercapnea (no known history of COPD, but is active smoker). Patient Active Hospital Problem List: Patient Active Problem List Diagnosis Code • Bilateral low back pain without sciatica M54.5 • Postoperative anemia due to acute blood loss D62 • HTN (hypertension) I10 • Tobacco abuse Z72.0 • Spinal stenosis M48.00 • GERD (gastroesophageal reflux disease) K21.9 • SIRS (systemic inflammatory response syndrome) ([facility]) R65.10 RECOMMENDATIONS: - Infectious work-up initiated: Blood cultures x2, CBC/diff, lactic acid, CXR, UA/UCx - EKG done showing T wave inversions (present on 04/22/17 EKG also) - Discontinued MILLER WOOD FLOUR Lisinopril 10 mg daily in the setting of likely sepsis - Will begin empiric Abx therapy with Vancomycin & Zosyn, and tailor therapy based on culture results - Type & screen obtained, blood consent obtained - will transfuse pRBC for Hb <7 - Internal Medicine will continue to monitor Patient was discussed with Dr. Moscoso. Lola Vera MD Resident [facility] [phone] 05/02/17 0143 Staff Note - Date and time patient seen 05/02/2017 Approximately at 4:35 am I have discussed the patient's management with Dr. Lola Vera MD and agree with the note. Please refer to the documented findings and plan of care. This patient's visit today consisted of an evaluation. I was present and confirmed the findings of the history and exam. Much improved now. If cx data negative, could potentially stop abx. Will have consult team follow her. Nik Moscoso MD [facility] [phone] 05/02/17 0459 * Charan Cody, PT - 05/01/2017 1:43 PM EST Associated Order(s): ADULT PHYSICAL THERAPY CONSULT IP Formatting of this note may be different from the original. GENERAL EVALUATION NOTE - Physical Therapy [address] [address] Name: Reggie Campos Location: [address] Date: 05/01/2017 Time: 1:43 PM Patient Status: Inpatient Insurance: Payor: MEDICARE / Plan: MEDICARE A AND B / Product Type: *No Product type* Patient Age: [age] year old Diagnosis: lumbar spondylosis (05/01/17 1300) Orders: eval and treat, OOB (05/01/17 1300) Weight Bearing Status: Weight Bearing as tolerated (05/01/17 1300) Precautions: Fall;Safety;Spinal (05/01/17 1300) Total Treatment Time--free text: 20 (05/01/171299) Minutes Tolerated--free text: 20 (05/01/171299) Safety Awareness: Patient verbalizes insight of current deficits;Patient demonstrates carryover of insight during functional tasks (05/01/171299) HPI: per epic review: "Reggie Campos is a 71-year-old female, well known to Dr. Krause's clinic, who is status post T7-L4 posterior spinal fusion performed in January of 2015. Initially, she had done really well now. Now, she started to develop lumbar back pain as well as some thoracic back pain. The main issue for her though is her lumbar spine pain at this time. Recently has hada CT scan and an MRI, which reveal some adjacent segment degeneration, both proximally and distally. The pain has gotten to the point where she would she would like to proceed with revision surgery. The pain in her low back does radiate to the lower extremities at times. Denies any significant numbness, paresthesias of the bilateral lower extremities. Denies any bowel or bladder issues." PAST MEDICAL HISTORY: No past medical history on file. PAST SURGICAL HISTORY: Past Surgical History: Procedure Laterality Date • LUMBAR SPINE FUSION, POSTEROLATERAL N/A 01/11/2015 ARTHRODESIS SPINE POSTERIOR [place]UMBAR [place] Kra[place] [facility] [place] • REVISE/REMOVE SPINAL NEURORECEIVER N/A 01/11/2015 REVISION OR REMOVAL IMPLANTED SPINAL NEUROSTIMULATOR performed by Colin Krause MD [place] [facility] [place] • THORAX SPINE FUSION, POSTEROLATERAL N/A 01/11/2015 ARTHRODESIS SPINE POSTERIOR THORACIC performed by Colin Krause MD [place] [facility] [place] Surgeries this admission: 04/30/17-L5-ileum psf, L4-5, L5-S1 plif Social History/Disposition Lives with: Spouse (05/01/171299) Assistance available: Yes (05/01/171299) Dwelling type: Single story home (05/01/171299) Entry steps: 2 (05/01/171299) Inside steps: None (05/01/171299) Bedroom location: 1st floor (05/01/171299) Bath location: 1st floor full bath (05/01/171299) Prior Level of Function Reported by: Reported by patient (05/01/171299) Ambulation: Ambulatory with device (SPC) (05/01/171299) Driving: Yes (05/01/171299) Devices at home: Rolling walker;Cane (05/01/171299) Barriers to learning: Medical Status (05/01/171299) Preferred learning method: Combination (05/01/171299) Patient / Family Goal(s): none stated PAIN: Patient has complaints of pain. Pain located back. Not rated FUNCTIONAL LEVEL: Balance Sit (Static): Fair (05/01/171299) Sit (Dynamic): Fair (05/01/171299) Stand (Static): Fair - (05/01/171299) Stand (Dynamic): Fair - (05/01/171299) P.T. Bed Mobility Roll (Right): Supervision (05/01/17 1300) Sidelying-Sit: Supervision (05/01/171299) Transfers Sit-Stand: Contact Guard (05/01/171299) Stand-Sit: Contact Guard (05/01/171299) Ambulation Assist: Contact Guard (05/01/171299) Distance: 140 feet (05/01/171299) Assistive Device: Rolling walker (05/01/171299) Ambulatory safety: Patient verbalizes insight of current deficits;Patient demonstrates carryover ofinsight during functional tasks (05/01/171299) LE ROM/Strength Assessment: B/L LE MMT grossly 4/5 throughout B/L LE ROM WFL Other: Pt remained reclined on chair following evaluation. Call law within reach and chair alarm in place. Nursing made aware of near syncopal episode while ambulating. O2 sats 99% on RA and BP 80/43. Observations Consciousness: Alert (05/01/17 1300) Orientation: Person;Time;Place;Situation (05/01/171299) Psychosocial: Patient can communicate basic needs;Patient can converse in a social setting (05/01/171299) Light Touch Sensation: L LE intact;R LE intact (05/01/171299) Sitting Posture: Forward head;Rounded shoulders (05/01/171299) Standing Posture: Forward head;Rounded shoulders (05/01/171299) PATIENT / FAMILY EDUCATION: Patient Education Review of Precautions: Safety;Spine Precautions (05/01/171299) ASSESSMENT: pt is a 71 yo [place] [facility] [place] s/p aforementioned surgicalprocedure. Pt educated on spine precautions and was able to maintain without additional cuing. Ambulation distance limited at this time 2º lightheadedness. Pt would benefit from continued PT services while in acute care to maximize functional independence. Recommend home with assistance as needed and PT at D/C. GOALS: Demonstrate Bed Mobility with : Rolling to right: Modified Independent Rolling to left: Modified Independent Sidelying to Sit: Modified Independent Demonstrate Transfers with: Sit to Stand: Modified Independent Stand to Sit: Modified Independent Demonstrate Ambulation: Assistive Device: rolling walker Distance in feet: 250 feet Level of Assistance on level surface: Modified Independent Demonstrate Stairclimbing: Number of steps: 2 steps, : 1 rail and Level of Assistance: Modified Independent Increase Strength of: B/L LE by 1/2 MMT grade Increase Balance: dynamic standing to fair (+) modified independent TREATMENT PLAN: Bed mobility training, Transfer training, Gait training, Elevation training, Strengthening exercises: B/L LE and Balance activities Anticipated Frequency (on eval): 1 to 3 times per week (05/01/17 1300) Discharge Recommendations: Home with supervision;Home Health P.T. (assistance as needed) (05/01/17 1300) Charan Cody, PT Physical Therapist [facility] [phone] 05/01/17 1912 * Yesi Garcias, OT - 05/01/2017 1:11 PM EST Associated Order(s): ADULT OCCUPATIONAL THERAPY CONSULT IP Formatting of this note may be different from the original. GENERAL EVALUATION NOTE - Occupational Therapy [facility] [place] [address] Name: Reggie Campos Location: [address] Date: 05/01/2017 Time: 1:14 PM Patient Status: Inpatient Insurance: Payor: MEDICARE / Plan: MEDICARE A AND B / Product Type: *No Product type* Patient Age: [age] year old Diagnosis: s/p L5-ileum psf, L4-5, L5-S1 plif on 04/30 (05/01/17 1300) Weight Bearing Status: Weight Bearing as tolerated (05/01/17 1300) Precautions: Falls;Safety;Spine Precautions (alarms) (05/01/17 1300) Total Treatment Time: 15 (05/01/17 1300) Minutes Tolerated: 15 (05/01/17 1300) Safety Awareness: Patient verbalizes insight of current deficits;Patient demonstrates carryover of insight during functional tasks (05/01/17 1300) HPI: Per epic, "Reggie Campos is a 71-year-old female, well known to Dr. Krause's clinic, whois status post T7-L4 posterior spinal fusion performed in January of 2015. Initially, she had done really well now. Now, she started to develop lumbar back pain as well as some thoracic back pain. The main issue for her though is her lumbar spine pain at this time. Recently has had a CT scan and an MRI, which reveal some adjacent segment degeneration, both proximally and distally. The pain has gotten to the point where she would she would like to proceed with revision surgery. The pain in her low back does radiate to the lower extremities at times. Denies any significant numb ness, paresthesias of the bilateral lower extremities. Denies any bowel or bladder issues." PAST MEDICAL HISTORY: No past medical history on file. PAST SURGICAL HISTORY: Past Surgical History: Procedure Laterality Date • LUMBAR SPINE FUSION, POSTEROLATERAL N/A 01/11/2015 ARTHRODESIS SPINE POSTERIOR LUMBAR [place] Colin Krause [place] [facility] [place] • REVISE/REMOVE SPINAL NEURORECEIVER N/A 01/11/2015 REVISION OR REMOVAL IMPLANTED SPINAL NEUROSTIMULATOR performed by Colin Krause MD [place] [facility] [place] • THORAX SPINE FUSION, POSTEROLATERAL N/A 01/11/2015 ARTHRODESIS SPINE POSTERIOR THORACIC performed by Colin Krause MD at [facility] PROBLEM LIST: Active Problems: * No active hospital problems. * Social History/Disposition Lives with: Spouse (05/01/171299) Assistance available: Yes (05/01/171299) Dwelling type: Single story home (05/01/171299) Entry steps: 2 (05/01/171299) Inside steps: None (05/01/171299) Bedroom location: 1st floor (05/01/171299) Bath location: 1st floor full bath (05/01/171299) Prior Level of Function Reported by: Reported by patient (05/01/171299) Driving: Yes (05/01/171299) Grooming: Independent (05/01/171299) Bathing: Independent (05/01/171299) Dressing: Independent (05/01/171299) Eating: Independent (05/01/171299) Meal prep: Independent (05/01/171299) Durable Medical Equipment at home: Cane;Rolling walker (05/01/171299) Barriers to learning: Medical status (05/01/171299) Preferred learning method: Combination (05/01/171299) Patient/Family Goal(s): None stated Pain: No complaints of pain LEVEL OF CONSCIOUSNESS: Observations Consciousness: Alert (05/01/171299) Orientation: Person;Place;Time;Situation (05/01/171299) Safety awareness: The Patient verbalizes insight of current deficits.;The Patient demonstrates carryover of insight during functional tasks.;Needs cueing supervision. (05/01/171299) Light touch sensation: L UE intact;R UE intact (05/01/171299) Coordination: L UE intact;R UE intact (05/01/171299) Sitting posture: Forward head;Rounded shoulders (05/01/171299) Standing posture: Forward head;Rounded shoulders (05/01/171299) UPPER EXTREMITY STATUS: B UE AROM WFL B UE MMT 4/5 throughout Balance Sit (Static): Fair (05/01/171299) Sit (Dynamic): Fair (12/23/17 1300) Stand (Static): Fair - (05/01/17 1300) Stand (Dynamic): Fair - (05/01/171299) SELF CARE: Bathing Upper Body: Not Tested (05/01/171299) Lower Body: Not Tested (05/01/171299) Dressing Upper Body: Minimal Assistance (05/01/17 1300) Lower Body: Dependent (05/01/171299) FUNCTIONAL MOVEMENT: Bed Mobility Supine-Sit: Supervision (Please comment) (05/01/171299) OT Transfers Sit-Stand: Contact Guard (05/01/17 1300) Stand-Sit: Contact Guard (05/01/171299) Toilet: Minimal Assistance (05/01/171299) Functional Ambulation Assistive Device: Rolling walker (05/01/171299) Level of Assistance on level surface:: Contact Guard (05/01/171299) OTHER FINDINGS: Patient remained in bedside chair with call law within reach, chair alarm on, and instructed not to stand without medical personnel assistance. PATIENT/FAMILY EDUCATION: Patient Education Review of Precautions: Safety;Fall (Ot Role, reason for eval, functional mobility, self-care) (05/01/171299) ASSESSMENT: Currently, patient required the above listed assistive levels for functional mobility and self-care. Patient would benefit from further OT services to increase functional strength, increase functional balance, and increase safety awareness. Recommend anticipated discharge to home with sweeney pervision and home health OT versus rehab stay when deemed medically appropriate. GOALS: Increase Strength of: B UE by 1/2 grade Demonstrates Balance at: Fair + Demonstrates self care at: Grooming: Modified Independent Bathing upper body: Modified Independent Bathing lower body: Minimal assistance Upper body dressing: Modified Independent Lower body dressing: Minimal assistance Toileting: Modified Independent using device and adaptive equipment as necessary Demonstrates Bed Mobility with: Supine to Sit: Modified Independent Sit to Supine: Modified Independent Demonstrates Transfers with: Sit to Stand: Modified Independent (100% with device/additional time) Stand to Sit: Modified Independent (100% with device/additional time) Bed to Chair/Wheelchair/Toilet: Modified Independent (100% with device/additional time) Increase safety with all ADLs and transfers with functional mobility device and adaptive equipment as needed. TREATMENT PLAN: Continue OT services by utilizing the following treatment intervention: Accuracy with Precautions, Safety, Bed mobility training, Transfer training, Strengthening exercises, Balance activities, Self care tasks and Functional Ambulation Anticipated Frequency (on eval): 1 to 3 times per week (05/01/17 1300) Discharge Recommendations: Home with supervision;Home Health O.T. (versus rehab pending progression) (05/01/17 1300) Yesi Garcias OT Occupational Therapist [facility] [phone] 05/01/17 1315 in this encounter Nursing Notes * Jasmina Ferrara RN - 05/04/2017 12:50 PM EST Goals: Clinical Goal(s): pt will remain free from falls during this shift (05/04/17 0850) Possible barriers to meeting goal(s)/advancing plan of care: Pain, pain medication, limited mobility Stability of the patient: Moderately stable - low risk of patient condition declining or worsening Summary regarding today's goal(s): Met: pt remained free from falls during this shift Recommendations: Continue to implement fall precautions Jasmina Ferrara RN Registered Nurse [facility] [phone] 05/04/17 0575 * Jasmina Ferrara RN - 05/04/2017 12:03 PM EST Formatting of this note may be different from the original. NURSING DISCHARGE PROGRESS NOTE [address] [address] Name: Reggie Campos Location: [address] Date: 05/04/2017 Time: 12:03 PM The nursing measures listed below are those which were carried out while the patient was at the facility noted above and are not to be interpreted as physician orders for extended care. ACCOMPANIED BY: spouse DESTINATION: home DISCHARGE NURSE: Jasmina Ferrara RN Height: Height: 152.4 cm (5') (04/30/17 0759) Weight: Weight: 50.3 kg (110 lb 14.3 oz) (04/30/17 0759) Most Recent Vital Signs: BP 132/70 (05/04/17 7:00 AM) Pulse 83 (05/04/17 7:00 AM) Temp 36.9 °C (98.5 °F) (05/03/17 11:23 PM) Resp 16 (05/04/17 7:00 AM) PAIN LEVEL AT DISCHARGE: Level of Pain: 4/10 Pain Scale Type: [facility] Adult Scale 0-10 Type of Pain: aching Location: back Radiation: denies Intervention: medication - last dose given: oxycodone at 0830 Instructions for Pain Management Post Discharge Given: yes BELONGINGS PRESENT ON DISCHARGE: Belongings remaining with patient:: Cell Phone chargers;Cell Phone;Clothing / Shoes (04/30/171734) I verified that all belongings were present at discharge. (Nurse initials - SJS) Are there Home Medications that will need to be returned to the patient?: No (04/30/171734) I verified that all remaining home medications were returned to patient at discharge. (Nurse initials - SJS n/a) HARD COPY OF NARCOTIC PRESCRIPTION SIGNED AND PROVIDED TO PATIENT UPON HOSPITAL DISCHARGE: yes READMISSION RISK (SCORE): Readmission Risk Score: 10 (05/04/17 0800) RESTRAINTS THIS HOSPITALIZATION: no BEHAVIORAL CONCERNS: none IMMUNIZATIONS GIVEN THIS ADMISSION: none NEUROLOGICAL [place] Coma Scale: Eyes Open: 4 = Spontaneous (05/04/17 0850) Best Verbal Response: 5 = Verbally appropriate for age (05/04/17 0850) Best Motor Response: 6 = Obeys commands appropriate for age (05/04/17 0850) Coma Score: 15 (05/04/17 0850) Extremity Movement: Right Leg Move: 4-Active movement with some resistance (05/04/17 0850) Right Arm Move: 5-Active movement with full resistance (05/04/17 0850) Left Leg Move: 4-Active movement with some resistance (05/04/17 0850) Left Arm Move: 5-Active movement with full resistance (05/04/17 0850) Pupil Size/Reaction: Right Pupil size (mm): 3 mm (05/04/17 0850) Right Reaction: Reactive + (05/04/17 0850) Left Pupil Size (mm): 3 mm (05/04/17 0850) Left Reaction: Reactive + (05/04/17 0850) SEIZURE PRECAUTIONS: no SENSORY DEFICITS: no SPEECH, HEARING, VISION PROBLEMS: Are you deaf or do you have serious difficulty hearing?: No (04/30/171726) Are you blind or do you have serious difficulty seeing, even when wearing glasses?: No (04/30/171726) Is patient non-verbal or have difficulty speaking? no LANGUAGE BARRIER: no FEEDING: feeds self if all food prepared ORAL HYGIENE: brushes own teeth Functional [place] Measure (must be completed for all patients on discharge): Feedin = complete independence Locomotion: 3 = independence with device Expression: 4 = complete independence Transfer Mobility/Ambulation Status: 3 = independence with device Social Interaction: 4 = complete independence Dressin = independence with device Hygiene: 3 = independence with device RESPIRATORY: Discharged with Oxygen: no Ventilator: no Trach/Date of Trach: no Left Lung Sounds: Diminished;Clear;Equal (05/04/1750) Right Lung Sounds: Diminished;Equal;Clear (05/04/1750) CARDIOVASCULAR: (Cardiovascular WNL = Rhythm regular, normal rate per age, normal heart sounds (not accentuated, diminished or split,) no edema, brisk capillary refill, pulses present, no murmur.) Observation WNL = Observation WNL: WNL except for items charted below (05/04/1750) Heart Sounds: S1;S2 (05/01/171999) Rhythm: Regular (05/04/17 0850) Extremities: +Sensation;Right;Left;Upper;Lower;[place];Warm (05/04/1750) Pulses Right: Dorsalis Pedis +;Radial + (05/04/17 0850) Pulses Left: Dorsalis Pedis +;Radial + (05/04/17 0850) Edema: Yes (05/04/1750) Edema Location: L = Lower extremities;Both (05/04/17 0850) Edema Assessment: +2 - Description (05/04/1750) Capillary Refill: (brisk) (05/04/17 0850) P = palpable D = doppler Carotid Brachial Radial Femoral Dorsalis Pedis Posterior Tibial Popliteal Right + + Left + + Intravenous Lines: other - removed INTEGUMENTARY: Integumentary Observations: incision - back Wound(s): Sacrum reddened MUSCULOSKELETAL:Weight Bearing Status: Weight Bearing as tolerated (05/03/17 1100) Prosthetic(s): no GI ELIMINATION: (GI WNL = Abdomen flat, soft, no tenderness, symmetrical. Normal active bowel sounds present in all4 quadrants.) Observation WNL: Observation WNL: Yes (05/04/17 0850) Last Bowel Movement: 05/04/17 (05/04/17 08) Ostomy Present: no ELIMINATION: ( WNL = Genitalia intact without discharge, swelling or pain. Urine clear and pale yellow, no foul smell. Continence appropriate for age. No bladder distention - absence of urinary devices - no hemo or peritoneal dialysis.) Observation WNL: Observational WNL: Yes (05/04/17 08) Ostomy Present: no REPRODUCTIVE: Reproductive/Sexual Concerns: no Drainage: n/a COPING: Family/Community Support Systems in Place: Yes, Emergency Contact Name: Cigarette Vendor: YESICA CAMPOS (04/30/17729) Emergency Contact Number: Contact's V (04/30/17729) Discharge instructions and medications reviewed with patient and family. They verbalized understanding. Personal belongings sent home with patient. Discharge Checklist: Discharge Instructions - Initials: SJS Prescriptions for Controlled Substances: yes, date - 05/04/17 - Initials: SJS Home Medications Returned: N/A - Initials: SJS POLST Form (if applicable): N/A - Initials: SJS All IV Fluid sites have been discontinued: yes, date - 05/04/17 - Initials: SJS Lines/Drains/Airways (LDAs) have been completed in flowsheet rows: yes, date - 05/04/17 - Initials:SJS Jasmina Ferrara RN Registered Nurse [facility] [phone] 05/04/17 1205 * Delmy Boyer RN - 05/04/2017 8:01 AM EST Goals: Clinical Goal(s): Patient will remain free from falls during [id number] shift. (05/03/17 2100) Possible barriers to meeting goal(s)/advancing plan of care: Weakness, pain, narcotic pain medications. Stability of the patient: Moderately unstable - medium risk of patient condition declining or worsening Summary regarding today's goal(s): Met: Patient did not fall during shift. Recommendations: Continue fall precautions. Delmy Boyer RN Registered Nurse [facility] [phone] 05/04/17 0802 * Amanda Parson RN - 05/01/2017 6:46 PM EST Goals: Clinical Goal(s): patient will be free from falls this shift (05/01/17 0703) Possible barriers to meeting goal(s)/advancing plan of care: Impaired mobility, pain, Dilaudid LEAF STRIPPER Stability of the patient: Moderately stable - low risk of patient condition declining or worsening Summary regarding today's goal(s): Met: patient was free from falls Recommendations: Continue to implement fall precautions Amanda Parson RN Registered Nurse [facility] [phone] 05/01/17 1847 * Amanda Parson RN - 05/01/2017 9:05 AM EST Per PT/OT, patient became dizzy and passed out for 2-3 seconds. Pt was assisted to a seated position in the chair. Vital signs were obtained. VSS, blood glucose 134. Patient feels asymptomatic at this time. Steven Mata of [facility] made aware of this situation. Will continue to monitor patient closely. Amanda Parson RN Registered Nurse [facility] [phone] 05/01/17 1043 * Selam Rosaels RN - 04/30/2017 7:46 PM EST Goals: Clinical Goal(s): patient will be free from falls (04/30/17 1655) Possible barriers to meeting goal(s)/advancing plan of care: Surgery today, narcotic use Stability of the patient: Moderately stable - low risk of patient condition declining or worsening Summary regarding today's goal(s): Met: no falls this shift Recommendations: Enforce fall precautions Selam Rosales RN Registered Nurse [facility] [phone] 04/30/17 1947 * Tanika Elmore NA - 04/30/2017 5:26 PM EST Post Anesthesia Care Unit Transport Note [address] [address] Dept. Reggie Campos Transported from PeriOp to : [place] [address] Time: 1655 Care of patient transferred to: RN Transported via: Stretcher Belongings with Patient: NO Pulse : 77 Temp : 37.4 BP : 98/62 Respirations : 18 Pulse Ox : 97 O2 : 3L TERESA Corona Bonding Machine Tender [facility] [phone] 04/30/17 1727 * Page Campos RN - 04/30/2017 3:49 PM EST Formatting of this note may be different from the original. PERIOP TO IP HANDOFF COMMUNICATION NOTE [facility] [address] [facility] [place] [address] Name: Reggie Campos AGE: [age] year old Location: [place] [address] Date: 04/30/2017 Attention to: [facility] Report from: Page Campos RN Patient arriving via: Bed Time of call: 3:50 PM Phone Ext: [phone] Reason for SBAR handoff: OR Sending to: [facility] 654 Emotional/Personal Events & Special Needs: none Code Status: Full Code Safety Concerns: no safety concerns identified Allergies: Hctz [hydrochlorothiazide] and Metronidazole PMH:No past medical history on file. PSH: Past Surgical History: Procedure Laterality Date • LUMBAR SPINE FUSION, POSTEROLATERAL N/A 01/11/2015 ARTHRODESIS SPINE POSTERIOR [place]BAR [place] [facility] [place] REVISE/REMOVE SPINAL NEURORECEIVER N/A 01/11/2015 REVISION OR REMOVAL IMPLANTED SPINAL NEUROSTIMULATOR performed by Colin Krause MD at [facility] • THORAX SPINE FUSION, POSTEROLATERAL N/A 01/11/2015 ARTHRODESIS SPINE POSTERIOR THORACIC performed by Colin Krause MD at [facility] Isolation: none Procedure: L5-ileum PSF, L4-5 L5S1 PLIF Type of Anesthesia: General endotracheal anesthesia Block: none Location: none IV intake: 3000 and 1000 Albumin mL EBL: OR: 900 mL PACU: 125 from Hemovac mL Urine output: OR 0 mL PACU Incontinent of large amount plus 100 ML in bedpan IUBC none Incision location: midline entire back Dressing location: see above Lines: Peripheral Line Right;Forearm;Cephalic 22 Gauge (Active) Number of days:855 Peripheral Line Right;Metacarpal 18 Gauge (Active) Status Fluids infusing 04/30/2017 3:27 PM Tubing Changed No 04/30/2017 3:27 PM Phlebitis Scale 0 04/30/2017 3:27 PM Infiltration Scale 0 04/30/2017 3:27 PM Site Description (Other) Without redness, swelling or drainage 04/30/2017 3:27 PM Site Intervention None required 04/30/2017 3:27 PM Dressing Assessment Dressing clean, dry, and intact 04/30/2017 3:27 PM Number of days:0 Peripheral Line Left;Forearm 20 Gauge (Active) Status Capped/Locked 04/30/2017 3:27 PM Tubing Changed N/A 04/30/2017 3:27 PM Phlebitis Scale 0 04/30/2017 3:27 PM Infiltration Scale 0 04/30/2017 3:27 PM Site Description (Other) Without redness, swelling or drainage 04/30/2017 3:27 PM Site Intervention None required 04/30/2017 3:27 PM Dressing Assessment Dressing clean, dry, and intact 04/30/2017 3:27 PM Number of days:0 Drain Hemovac Lumbar (Active) Status Continuous Suction 04/30/2017 1:22 PM Suction Continuous Suction 04/30/2017 1:22 PM Number of days:0 Vital Signs: BP: 92/51 (04/30/17 1545) Temp: 36.4 °C (97.5 °F) (04/30/17 151) Pulse: 84 BPM (04/30/17 1545) Resp: 15 Resp/min (04/30/17 1545) SpO2: 95 %O2 (04/30/17 1545) O2 flow rate: 3 L/MIN (04/30/17 1530) O2 via: Nasal Cannula (04/30/17 1530) Glucose (Bedside): 89 (04/30/17 0908) Time of last pain medication: 1246 Med: Dilaudid Time of last antibiotic: 1045 Med: Gentamycin Time of last antiemetic: 1045 Med: Zofran Neurological: Observation WNL: Yes (04/30/17 151) Behavioral: AO X3;Cooperative;Moves All Extremities (ARCE) (04/30/17 151) Right Arm Move: 5-Active movement with full resistance (04/30/17 151) Right Leg Move: 5-Active movement with full resistance (04/30/17 151) Left Arm Move: 5-Active movement with full resistance (04/30/17 151) Left Leg Move: 5-Active movement with full resistance (04/30/171514) Right Pupil size (mm): 3 mm (04/30/17 1415) Right Reaction: Reactive + (04/30/17 141) Left Pupil Size (mm): 3 mm (04/30/17 1415) Left Reaction: Reactive + (04/30/17 1415) Coma Score: 15 (04/30/171514) Respiratory: Chest Expansion: Symmetrical (04/30/171514) Respirations: Unlabored;Regular (04/30/171514) Left Lung Sounds: Diminished;Clear (04/30/171514) Right Lung Sounds: Diminished;Clear (04/30/171514) Oxygen therapy/ Mechanical vent O2 flow rate: 3 L/MIN (04/30/17 153) O2 via: Nasal Cannula (04/30/17 153) Cardiac: Observation WNL: Yes (04/30/171514) Heart Sounds: S1;S2 (04/30/171514) Rhythm: NSR (04/30/171514) Extremities: +Sensation (04/30/171514) Pulses Right: Dorsalis Pedis + (04/30/171514) Pulses Left: Dorsalis Pedis + (04/30/171514) Edema: No (04/30/171514) Capillary Refill: 3 sec (04/30/171514) GI: Observation WNL: WNL except for items charted below (04/30/171514) Abdomen: Soft;Non-distended (04/30/171514) : Observational WNL: WNL except for items charted below (04/30/171514) Urine Description: Clear;Yellow (04/30/171514) Urine Output Source: Bedpan;Incontinent (04/30/171514) Integumentary:Observation WNL: WNL except for items charted below (04/30/171514) Skin Description: Dry;Warm (04/30/171514) Skin Color: Flesh Tone (04/30/171514) Additional Assessment Information: Treated post op hypotension with fluid bolus with good response.Have started LEAF STRIPPER and capnography. Page Campos, RN Registered Nurse [facility] [phone] 04/30/17 1554 Page Campos, RN Registered Nurse [facility] [phone] 04/30/17 1627 * Ena Kovacs RN - 04/30/2017 12:33 PM EST Second safety pause perform by Dr. Krause with Bruna to verify surgical level at 1133. Ena Kovacs RN Registered Nurse [facility] [phone] 04/30/17 1236 in this encounter OR Notes * Operative Report Brief - Linda Jarquin PA-C - 04/30/2017 2:33 PM EST [address] [address] OPERATIVE REPORT - BRIEF Name: Reggie Campos Date: 04/30/2017 Time: 2:33 PM [place] [facility] [place]: Orthopedic Surgery Date of Operation: 04/30/2017 Pre-op Diagnosis: Lumbar spondylosis Post-op Diagnosis: same Operation: L5-ileum psf, L4-5, L5-S1 plif Surgeon: Colin Krause MD Assistants: Linda Salinas PA-C and Andrei Diamond PA-C Anesthesia: General endotracheal anesthesia Drains: Hemovac Estimated Blood Loss: 900 ml. IV Fluids: 2000 ml, 1000 albumin Urine Output: N/A Specimens/Disposition: None Apparent Intraoperative Complications: NONE Patient Condition: stable Disposition: Post Anesthesia Care Unit Attestation: I understand that section 1842 (b)(7)(D) of the Social Security Act generally prohibits Medicare physician fee schedule payment for the services of [id number] in teaching hospitals when qualified residents are available to furnish such services. I certify that the services for which payment is claimed were medically necessary, and that no qualified resident was available to perform the services. I further understand that these services are subject to post-payment review by the Medicare carrier. 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 POST-OP DIAGNOSIS: The same. SURGEON: Dr. Krause. ASSISTANTS: Andrei Diamond PA-C, and Linda Jarquin PA-C. They assisted because a qualified resident was not available, as well as secondary to the complexity of the case. ANESTHESIA: General. OPERATION: Hardware removal L4, complete laminectomy L4-S1, complete diskectomy L4-5, L5-S1, with posterior interbody fusion L4-5, L5-S1, posterior lateral fusion L4 to the ilium using local autogenous bone graft, cancellous allograft. The fusion was performed with the 5.5 mm polyaxial titanium [employer] Alleyuy System. The interbody fusion was Brantigan cages filled with InFUSE and local autogenousbone graft. FINDINGS: The most obvious thing was that there was gross mobility and loosening of the bottom screws of the previous construct. The other thing is, which was much more worrisome, is the patient was extremely osteopenic. The iliac posts had to be reinforced with allograft bone, and even then, they were very tenuous. She will obviously need some type of external support postoperatively, and still I am very concerned about this. ESTIMATED BLOOD LOSS: 750 mL. DRAINS: There was 1 drain. URINE OUTPUT: Not measured. DISPOSITION: PACU. SPECIMEN: No specimens. COMPLICATIONS: None. IV FLUIDS: A L of albumin and 1300 of crystalloid. CONDITION: Stable. INDICATIONS AND HISTORY: This patient had inferior failure with persistent pain. DESCRIPTION OF OPERATION: The patient was identified, and the procedure was verified. The patient anesthetized, placed prone on the Ha table. The spine was prepped and draped in usual sterile fashion. The inferior portion of midline incision was opened and the posterior elements dissected laterally, the tips of transverse processes distally, and over the instrumentation proximally. The transverse connector was removed from the existing construct, and then the L3 and L4 screws uncapped. TheL4 and L5 screws were uncapped. The L5 screws, which were grossly loose, were removed. At this juncture, I approached both posterior-superior iliac spines through subcutaneous tunnels, and then placed iliac post. Again as previously stated, the bone was extremely osteopenic, and I had to supplementthe post with cancellous allograft, and even then, they were tenuous at best. Additional screws were placed in S1 under fluoroscopic control, and then a Leksell rongeur and a series of Kerrison rongeurs were used for perform a laminectomy from S1 all the way up through L4. The laminectomy was widened until I could identify the shoulders of the L5 and S1 nerve roots and the axilla of the L4 and E0cclvj roots. Working in these intervals, the spreaders, deandre, curettes, and pituitary rongeurs were used to perform complete diskectomies, and the interbody fusions performed with the Brantigan cages. At this juncture, the lateral gutters were decorticated and grafted. Two rods were secured to the existing rods using wedding bands on each side. Two transverse connectors were applied, one aboveand below the S1 screw. My hope for placing the distal connector was to try to hook the iliac post-op and prevent failure, which I am significantly concerned about. At any rate, at this juncture, thewound was irrigated. It was closed in layers over a drain. Wound sterilely dressed. Drain attached.Patient taken to recovery room in stable condition. Colin Krause MD Spine Surgery, Scoliosis Surgery Adult and Pediatric DAA/CP: Doc#: [id number] in this encounter Miscellaneous Notes * Ancillary Progress Note - Tamie Barragan RN - 05/04/2017 12:50 PM EST CARE MANAGEMENT - DISCHARGE [place]GRESS [place] [facility] [place] [address] Name: Reggie Campos [address] Date: 05/04/2017 Time: 2:18 PM The following discharge plans have been made for this patient: Home with [facility] ( phone [phone]). Spouse to provide transport home. Patient and spoue aware and receptive to plan: yes Caregiver Information: Caregiver Name: n/a (05/02/17 1200) Transition Planning: Transition Planning Discharge Plan / Considerations: Discharge planning services explained, choices offered.;Home with home care;Instructed to call if discharge plans change or if needs arise;Instructed to call with concerns (05/04/17 1100) [facility]charge [facility]. (05/04/17 1100) Home Health agency choice due to: Patient's preferred agency declined;Service area (05/04/17 1100) Discharge Transportation: Family/Friends drive (05/04/17 1100) Date of scheduled discharge transportation: 05/04/17 (05/04/17 1100) Transition plan discussed with: (enter name and phone #): (patient and spouse) (05/04/17 1100) Final Discharge Plan: Final Discharge Plan (complete only at time of D/C): Discharge planning services explained;Discharged/transferred to HOME CARE SERVICE, care RELATED to IP admission;Instructed to call if discharge plans change or if needs arise;Instructed to call with concerns (05/04/17 1100) Provided contact information to reach referral sources/providers: yes [facility] ( phone [phone]). Contact made at discharge to review the discharge plan: patient and spouse Tamie Barragan RN Care Manager [facility] [phone] 05/04/17 1420 * Ancillary Progress Note - Maranda Nava LPN - 05/04/2017 12:19 PM EST Home health referral made to [facility] ( phone [phone]). This investigative writer spoke with Annamarie in intake. LAYLA released to this [facility] agency. CM made aware. Maranda Nava LPN Care Manager [facility] [phone] 05/04/17 1220 * Ancillary Progress Note - Tamie Barragan RN - 05/04/2017 12:07 PM EST CARE MANAGEMENT - PROGRESS NOTE [address] [address] Name: Reggie Campos [place] [facility] [place] [id number] Date: 05/04/2017 Time: 12:08 PM Date and Time Patient was Seen: 05/04/2017 at 12:08 PM CARE MANAGEMENT Chart Reviewed: yes. CM met with patient and spouse and they would like referral to [facility].. Cm will follow. Their preferred agency can't take patient since no PT available to visit at this time. Cm RC to make referral to [facility] , and accepted patient. Cm will follow. Cm called patient and made aware of [facility] ( phone [phone]) is her agency with phone number. Aware to call them if no call within a day to set up visit. Tamie Barragan RN Care Manager [facility] [phone] 05/04/17 1218 Tamie Barragan RN Care Manager [facility] [phone] 05/04/17 1218 Tamie Barragan RN Care Manager [facility] [phone] 05/04/17 1418 * Ancillary Progress Note - Tamie Barragan RN - 05/04/2017 11:50 AM EST Formatting of this note may be different from the original. HOME HEALTH/HOSPICE REFERRAL FORM CARE MANAGEMENT [address] [address] Referred By: Tamie Barragan RN Admission Date: 04/30/2017 Discharge Date: 05/04/2017 Discharge Time: afternoon Start Date: Within 24- 48 hours Agency Referred To: [facility] [phone] PATIENT INFORMATION: Name: Reggie Campos Address: [address] [place] [address] : 1945 Phone: There is no home phone number on file. SSN: [id number] [facility]: [place] Emergency Contacts: Extended Emergency Contact Information Primary Emergency Contact: YESICA CAMPOS Mobile Relation: Spouse Contact is hearing impaired. Preferred language: [employer] Diamond Wheel Molder needed? No Secondary Emergency Contact: JUNI BAPTISTE Mobile Relation: Child Preferred language: [employer] Diamond Wheel Molder needed? No MEDICAL INFORMATION: Principal Diagnosis: L5- ileum PSF, L4-5, L5-S1 PLIF Other Diagnosis: See attached History and Physical Surgery and Dates: Past Surgical History: Procedure Laterality Date • LUMBAR SPINE FUSION, POST INTERBODY N/A 04/30/2017 ARTHRODESIS SPINE POSTERIOR INTERBODY WITH LAMINECTOMY LUMBAR performed by Colin Krause MD at [facility] • LUMBAR SPINE FUSION, POSTEROLATERAL N/A 01/11/2015 ARTHRODESIS SPINE POSTERIOR LUMBAR performed by Colin Krause MD at [facility] • LUMBAR SPINE FUSION, POSTEROLATERAL N/A 04/30/2017 ARTHRODESIS SPINE POSTERIOR LUMBAR performed by Colin Krause MD at [facility] • REVISE/REMOVE SPINAL NEURORECEIVER N/A 01/11/2015 REVISION OR REMOVAL IMPLANTED SPINAL NEUROSTIMULATOR performed by Colin Krause MD at [facility] • THORAX SPINE FUSION, POSTEROLATERAL N/A 01/11/2015 ARTHRODESIS SPINE POSTERIOR THORACIC performed by Colin Krause MD at [facility] • TOTAL HYSTERECTOMY Diet: Adults: As tolerated Allergies: Hctz [hydrochlorothiazide] and Metronidazole Isolation Type: None Activity Restrictions: Spinal precautions and see discharge instructions Isolation For: None HOME CARE ORDERS: (Discipline and Frequency): FPC for general assessment and evaluation, vital signs, medication teaching and compliance. Wound asssessment, care, and reinforce teaching. PT and OT to eval andtreat. Medications Dose, Frequency, & Route: Refer to Physician's Discharge Instructions Equipment and Supplies: N/A Ordering Physician and Contact Information: Dr. Colin Krause PCP: PCP: KARISSA RODGERS Dr [place] [address] [phone] D/C Physician: Dr. Colin Krause Insurance: See attached facesheet. Tamie Barragan RN Care Manager [facility] [phone] 05/04/17 1206 Tamie Barragan RN Care Manager [facility] [phone] 05/04/17 1412 * Ancillary Progress Note - Larisa Nava PTA - 05/03/2017 11:50 AM EST PROGRESS NOTE - Physical Therapy [address] [address] Name: Reggie Campos [facility] Date: 05/03/2017 Time: 11:52 AM Patient Status: Inpatient Insurance: Payor: MEDICARE / Plan: MEDICARE A AND B / Product Type: *No Product type* 71 year old S: Diagnosis: lumbar spondylosis (05/03/171099) Weight Bearing Status: Weight Bearing as tolerated (05/03/171099) Precautions: Fall;Safety;Spinal (TLSO) (05/03/171099) Total Treatment Time--free text: 24 (05/03/171099) Minutes Tolerated--free text: 24 (05/03/171099) Safety Awareness: Patient verbalizes insight of current deficits;Patient demonstrates carryover of insight during functional tasks (05/03/171099) PAIN: Patient has complaints of Pain/Location LB 5/10 O: Pt was in bed upon arrival. Balance Sit (Static): Fair (05/03/171099) Sit (Dynamic): Fair (05/03/171099) Stand (Static): Fair (05/03/171099) Stand (Dynamic): Fair - (05/03/171099) Functional Level: P.T. Bed Mobility Roll (Right): Minimal Assistance (05/03/171099) Roll (Left): Minimal Assistance (05/03/171099) Sidelying-Sit: Minimal Assistance (05/03/171099) Sit-Sidelying: Minimal Assistance (05/03/171099) Transfers Sit-Stand: Contact Guard (05/03/171099) Stand-Sit: Contact Guard (05/03/171099) Ambulation Assist: Contact Guard (05/03/171099) Distance: 200' (05/03/171099) Assistive Device: Rolling walker (05/03/171099) Stairs: Contact Guard (3 steps B/L rail, 3 steps R rail) (05/03/171099) Noted gait deviations: decreased R foot clearance. (05/03/171099) Ambulatory safety: Patient verbalizes insight of current deficits;Patient demonstrates carryover ofinsight during functional tasks (05/03/171099) Observations Consciousness: Alert (05/03/171099) Orientation: Person;Time;Place;Situation (05/01/17 1300) Psychosocial: Patient can communicate basic needs;Patient can converse in a social setting (05/01/171299) Light Touch Sensation: L LE intact;R LE intact (05/01/17 1300) Sitting Posture: Forward head;Rounded shoulders (05/03/17 1100) Standing Posture: Forward head;Rounded shoulders (05/03/17 1100) Other: Ended session with pt supine in bed with call law within reach and bed alarm active. PATIENT / FAMILY EDUCATION: Patient Education Review of Precautions: Safety;Spine Precautions (05/03/17 1100) ASSESSMENT: Pt was able to complete functional mobility with above assist levels displaying increased tolerance to gait, ambulating 200' with contact guard assist with RW. Will continue to benefit from skilled PT to increase strength and functional independence. Discharge Recommendations: Home with supervision;Home Health P.T. (assistance as needed) (05/03/17 1100) PLAN: Continue PT per POC. Larisa Nava PTA Mechanical Cad Drafter [facility] [phone] 05/03/17 9959 * Ancillary Progress Note - Colin Dee RN - 05/02/2017 12:59 PM EST CARE MANAGEMENT - INITIAL ASSESSMENT PROGRESS NOTE [facility] [address] [place] [address] Name: Reggie Campos [place] [facility] [place] Date: 05/02/2017 Time: 12:59 PM Care Management assessment was conducted for this patient. Care management into visit patient and role explained. Pt admitted for back pain under orthopaedic service. Prior to admission patient lived with spouse and needed min assistance with ADL's which is provided by family memebers. Pt plans to return home on discharge and does not foresee any home health needs at this time. Patient denies rehab stays or HH in the past but did have SNF stay at [facility] in 2014. Patient used cane/Rolling walker for ambulation prior to admission. Pt with no questions or concerns. Full Initial Assessment: Full Initial Assessment Data Source: Patient;Medical Record/Chart (05/02/171199) Logistics Administrator: Umesh Dee RN (05/02/171199) Insurance verified: Yes (05/02/171199) Insurance Considerations: NA (05/02/171199) Alertness and Orientation: Patient verbalized understanding of their plan of care: No difficulties noted (05/02/171199) Patient's social support at time of discharge: Lives with spouse/life partner who is ABLE to help care for the patient (12/24/17 1200) Anticipated D/C disposition per abbreviated screening: Routine discharge or self care. No D/C planning needs identified. Full Care Management assessment not indicated. Will monitor for status change.(05/02/171199) Medical Power of Recreational Therapy Aide (POA): N/A (05/02/171199) Does Patient have a POLST form?: No (05/02/171199) Is Patient appropriate for a POLST form?: No (05/02/171199) Prescription Coverage:: Yes (Comment) (05/02/171199) Pharmacy:: Current: - Comment ([facility]) (05/02/171199) Current PCP Verified?: Yes (05/02/171199) Living Quarters: House (05/02/171199) Number of steps to enter living quarters.: 1-5 (3 steps) (05/02/171199) How many stories is the dwelling?: Two Stories (Can reside on 1st floor if needed) (05/02/171199) Location of bathroom(s):: All floors or Single story dwelling (05/02/171199) At time of admission patient lives with: Spouse (05/02/17 1200) Caregiver Name: n/a (05/02/171199) Cigarette Vendor: YESICA CAMPOS (04/30/17 7430) Relationship of Cigarette Vendor to Patient: SPOUSE (04/30/17 4030) Contact's V (04/30/17 0730) Would You Like Your Cigarette Vendor Notified?: No, salesperson driver at bedside (05/02/171199) Psycho Social Issues / concerns identified upon admission:: None identified (05/02/17 1200) Barriers: N/A (05/02/171199) OBRA or OPTIONS needed for placement: No (05/02/171199) How long does pt anticipate being in the hospital?: 3-5 Days (05/02/171199) Services Prior to Admission: Services Prior to Admission [facility] Transportation: Patient drives self (05/02/171199) [facility] Durable Medical Equipment (DME):: Cane;Walker Rolling (05/02/171199) Transition Planning: Transition Planning Discharge Plan / Considerations: Needs uncertain at this time. Continue monitoring for needs. (12/24/17 1200) Discharge Home Health: (declines at this time) (05/02/17 1200) Transition plan discussed with: (enter name and phone #): patient and spouse (05/02/17 1200) FOR FURTHER ASSESSMENT INFORMATION, PLEASE REFER TO THE CARE MANAGEMENT ASSESSMENT DOCUMENTATION FLOWSHEET [[id number]]. Colin Dee, chrome plater [facility] [place] [facility] [phone] 05/02/17 1302 * Ancillary Progress Note - Mark Washburn CFO - 05/01/2017 3:53 PM EST Raymond LSO check today. Pt states that the brace is fitting her fine and she is comfortable in the device. Will follow as needed Mark Washburn [facility] [place] Certified Orthotists [facility] [phone] 05/01/17 1554 * Ancillary Progress Note - Yong Orta CFO - 04/30/2017 3:48 PM EST Pt seen in PACU. Fit pt with an off the shelf Raymond LSO, set at medium. Nursing assisted with donning of brace. No issues with log rolling of pt while donning of brace. Brace fits very well. Brace removed and will be re-donned when pt is able to get out of bed. Will follow and make adjustments, if needed, as pt becomes mobile. Yong Orta [facility] [place]ified [facility]ists [facility] [place] [phone] 04/30/17 3681 in this encounter Plan of Treatment Upcoming Encounters Date Type Specialty Care Team Description 06/01/2017 Office Visit Orthopedic Surgery Colin Krause MD [address] [facility] [place] [address] 11/01/2017 Office Visit Cardiology Sterling [facility] [address] [facility] [place] [address] [phone] Pending Results Name Priority Associated Diagnoses Date/Ti me CULTURE BLOOD STAT 05/02/2017 1:1 1 AM EST CULTURE BLOOD (SITE 2) STAT 05/02 1:18 AM EST Scheduled Tests Name Priority Associated Diagnoses Order S chedule EKG Routine One Time for 1 Occurrences starting 05/02/2017 until 05/02/2017 Health Maintenance Due Date Last Done Comments [...] of this encounter Implants Implanted Type Area [employer] Sanitarian Device Identifier Expiration Date Model / Serial / Lot Dbx 10 [id number] - [id number] - [id number] Implanted:Qty : 1 on 01/11/2015 by Colin Krause MD Tissue - Human N/A: Spine Lumbar MUSCULOSKELETAL TRANSPLANT FND 08/18/2016 [id number] / [id number] / Dbx [facility] [id number] - [id number] - [id number] Implanted:Qty : 1 on 01/11/2015 by Colin Krause MD Tissue - Human N/A: Spine Lumbar MUSCULOSKELETAL TRANSPLANT FND 08/18/2016 004938 / [id number] / Chip Cancellous 30cc [id number] - [id number] Implanted:Qty : 1 on 04/30/2017 by Colin Krause MD Tissue - Human N/A: Spine Lumbar MUSCULOSKELETAL TRANSPLANT FND 01/20/2020 [id number] / / Chip Cancellous 90cc [id number] - [id number] Implanted:Qty : 1 on 04/30/2017 by Colin Krause MD Tissue - Human N/A: Spine Lumbar MUSCULOSKELETAL TRANSPLANT FND 01/29/2018 [id number] / / [id number] Straight [id number] Cocr - [id number] Implanted:Qty : 2 on 01/11/2015 by Colin Krause MD N/A: Spine Lumbar JNJ : DEPUY SPINE [id number] / / Screw 6x40 Poly Si [id number] - [id number] Implanted:Qty : 1 on 01/11/2015 by Colin Krause MD N/A: Spine Lumbar JNJ : ETHICON [employer]ARDIOVATIONS [id number] / / Screw 6x40 Ti Uni [id number] - [id number] Implanted:Qty : 8 on 01/11/2015 by Colin Krause MD N/A: Spine Lumbar JNJ : ETHICON CARDIOVATIONS [id number] / / Screw 5x40 Ti Uni [id number] - [id number] Implanted:Qty : 2 on 01/11/2015 by Colin Krause MD N/A: Spine Lumbar JNJ : ETH[employer]ON [employer]ARDIOVATIONS [id number] / / Screw 6x45 Ti Uni [id number] - [id number] Implanted:Qty : 6 on 01/11/2015 by Colin Krause MD N/A: Spine Lumbar JNJ : ETHICON CARDIOVATIONS [id number] / / Expedium Ti Sfx 5.5 Lat A2 - [id number] Implanted:Qty : 1 on 01/11/2015 by Colin Krause MD N/A: Spine Lumbar JNJ : ETH[employer]ON [employer]OVATIONS [id number] / / Graft Infuse Bone Lg [id number] - [id number] Implanted:Qty : 1 on 04/30/2017 by Colin Krause MD N/A: Spine Lumbar MEDTRONIC : NEURO CARE 06/10/2018 [id number] / / Screw Implanted:Qty : 2 on 04/30/2017 by Colin Krause MD N/A: Spine Lumbar SYNTHES : DEPUY [id number] / / Screw Implanted:Qty : 2 on 04/30/2017 by Colin Krause MD N/A: Spine Lumbar SYNTHES : DEPUY 179 / / Cage Implanted:Qty : 4 on 04/30/2017 by Colin Krause MD N/A: Spine Lumbar SYNTHES : DEPUY [id number] / / Connector 5.5 Du [id number] - [id number] Implanted:Qty : 4 on 04/30/2017 by Colin Krause MD N/A: Spine Lumbar JNJ : ETHICON C[employer]IOVATIONS [id number] / / Uriel 120mm [id number] - [id number] Implanted:Qty : 2 on 04/30/2017 by Colin Krause MD N/A: Spine Lumbar JNJ : ETHICON CARDIOVATIONS [id number] / / Screw Set Sng Inner [id number] - [id number] Implanted:Qty : 6 on 04/30/2017 by Colin Krause MD N/A: Spine Lumbar JNJ : ETH[employer]ON [employer]OVATIONS [id number] / / Expedium Ti Sfx 5.5 Lat A6 - [id number] Implanted:Qty : 2 on 04/30/2017 by Colin Krause MD N/A: Spine Lumbar JNJ : ETHICON [employer]OVATIONS [id number] / / Screw 7x45 Ti Uni [id number] - [id number] Implanted:Qty : 4 on 01/11/2015 by Colin Krause MD Explanted:Qty : 2 on 04/30/2017 N/A: Spine Lumbar JNJ : DEPUY SPINE [id number] / / Screw Set Sng Inner [id number] - [id number] Implanted:Qty : 20 on 01/11/2015 by Colin Krause MD Explanted:Qty : 4 on 04/30/2017 N/A: Spine Lumbar JNJ : DEPUY SPINE [id number] / / Explanted Type Area Health Sanitarian Device Identifier Expiration Date Model / Serial / Lot Expedium Ti Sfx 5.5 Lat A5 - [id number] Implanted:Qty : 1 on 01/11/2015 by Colin Krause MD Explanted:Qty : 1 on 04/30/2017 N/A: Spine Lumbar JNJ : ETH[employer]ON [employer]OVATIONS [id number] / / as of this encounter Procedures Procedure Name Priority Date/Time Associated Diagnosis Comments ARTHRODESIS SPINE POSTERIOR INTERBODY WITH LAMINECTOMY LUMBAR 04/30/2017 9:50 AM EST Back pain ARTHRODESIS SPINE POSTERIOR LUMBAR 04/30/2017 9:50 AM EST Back pain in this encounter Results * CBC (05/04/2017 5:36 AM) Component Value Ref Range WBC 8.43 4.00 - 10.80 K/u L RBC 2.97(L) 3.85 - 5.15 M/uL HGB 9.3(L) 12.0 - 15.3 g/dL HCT 27.8(L) 36.0 - 45.2 % MCV 93.6 81.5 - 97.5 fL MCH 31.3 27.0 - 34.0 pg MCHC 33.5 32.0 - 36.0 g/dL RDW 15.4 11.5 - 15.5 % PLATELET COUNT 127(L) 140 - 400 K/uL MPV 10.5 6.6 - 11.1 fL Specimen Performing Laborator y [facility] [address] [place] [address] * VANCOMYCIN TROUGH (05/03/2017 11:32 PM) Component Value Ref Range TROUGH VANCOMYCIN 9.3(L) 10 - 20 ug/mL VANCO LAST DOSE TIME NOT PROVIDED VANCO LAST DOSE DATE NOT PROVIDED Specimen Performing Laborator y [facility] [address] [place] [address] * CBC/DIFF (05/03/2017 6:51 AM) Component Value Ref Range WBC 7.67 4.00 - 10.80 K/u L RBC 2.91(L) 3.85 - 5.15 M/uL HGB 9.0(L) 12.0 - 15.3 g/dL HCT 27.6(L) 36.0 - 45.2 % MCV 94.8 81.5 - 97.5 fL MCH 30.9 27.0 - 34.0 pg MCHC 32.6 32.0 - 36.0 g/dL RDW 16.6(H) 11.5 - 15.5 % PLATELET COUNT 103(L) 140 - 400 K/uL MPV 10.8 6.6 - 11.1 fL NEUTS 70.9 40 - 75 % LYMPHS 17.5(L) 18 - 42 % MONOS 9.9 1 - 11 % EOS 0.9 0 - 6 % BASOS 0.3 0 - 2 % IMMATURE GRANULOCYTE 0.5 0 - 2 % ABS. NEUTS 5.44 1.8 - 7.7 K/uL ABS. LYMPHS 1.34 1.0 - 4.8 K/uL ABS. MONOS 0.76 0.0 - 1.1 K/uL ABS. EOS 0.07 0.0 - 0.7 K/uL ABS. BASOS 0.02 0.0 - 0.2 K/uL ABSOLUTE IMMATURE GRANULOCYTES 0.04 0 .0 - 0.2 K/uL Specimen Performing [facility] [address] [place] [address] * BASIC METAB PANEL, BMP (05/03/2017 6:51 AM) Component Value Ref Range BUN 7 6 - 20 mg/dL CREATININE 0.4(L) Comment: GFR should be used to assess renal function. Plasma/Serum creatinine may not be able to properly reflect renal function in some cases. 0.5 - 1.0 mg/dL SODIUM 142 135 - 146 mmol/L POTASSIUM 3.6 3.5 - 5.1 mmol/L CHLORIDE 107 98 - 107 mmol/L CO2 26 22 - 32 mmol/L ANION GAP 9 7 - 15 mmol/L GLUCOSE 106 70 - 120 mg/dL CALCIUM 8.0(L) 8.4 - 10.2 mg/dL E GLOM FILT RATE >60.0Comment:If lindsey ent is , multiply estimated GFR by 1.159. >60 Specimen Performing [facility] [address] [place] [address] * HCT (05/02/2017 6:11 PM) Component Value Ref Range HCT 27.4(L) 36.0 - 45.2 % Specimen Performing [facility] [address] [place] [address] * HGB (05/02/2017 6:11 PM) Component Value Ref Range HGB 9.0(L) 12.0 - 15.3 g/dL Specimen Performing [facility] [address] [place] [address] * TRANSFUSE PACKED RED BLOOD CELLS (05/02/2017 5:18 PM) * TRANSFUSE PACKED RED BLOOD CELLS (05/02/2017 5:18 PM) * PREPARE (CROSSMATCH) PACKED RED BLOOD CELLS (05/02/2017 3:00 PM) Component Value Ref Range ASSOCIATED ORDER See Type and Screen for units Specimen Performing [facility] [address] [place] [place] [address] * TRANSFUSE PACKED RED BLOOD CELLS (05/02/2017 1:27 PM) * TRANSFUSE PACKED RED BLOOD CELLS (05/02/2017 8:35 AM) * TRANSFUSE PACKED RED BLOOD CELLS (05/02/2017 8:35 AM) * CBC/DIFF (05/02/2017 5:34 AM) Component Value Ref Range WBC 7.16 4.00 - 10.80 K/u L RBC 2.09(L) 3.85 - 5.15 M/uL HGB 6.7(LL)Comment:RESULTS RECHECKED 12.0 - 15.3 g/dL HCT 21.3(L) 36.0 - 45.2 % MCV 101.9(H) 81.5 - 97.5 fL MCH 32.1 27.0 - 34.0 pg MCHC 31.5(L) 32.0 - 36.0 g/dL RDW 14.6 11.5 - 15.5 % PLATELET COUNT 125(L) 140 - 400 K/uL MPV 10.5 6.6 - 11.1 fL NEUTS 69.5 40 - 75 % LYMPHS 20.3 18 - 42 % MONOS 9.1 1 - 11 % EOS 0.4 0 - 6 % BASOS 0.1 0 - 2 % IMMATURE GRANULOCYTE 0.6 0 - 2 % ABS. NEUTS 4.98 1.8 - 7.7 K/uL ABS. LYMPHS 1.45 1.0 - 4.8 K/uL ABS. MONOS 0.65 0.0 - 1.1 K/uL ABS. EOS 0.03 0.0 - 0.7 K/uL ABS. BASOS 0.01 0.0 - 0.2 K/uL ABSOLUTE IMMATURE GRANULOCYTES 0.04 0 .0 - 0.2 K/uL Specimen Performing Laborator y [facility] [address] [place] [address] * BASIC METAB PANEL, BMP (05/02/2017 5:34 AM) Component Value Ref Range BUN 14 6 - 20 mg/dL CREATININE 0.5 Comment: GFR should be used to assess renal function. Plasma/Serum creatinine may not be able to properly reflect renal function in some cases. 0.5 - 1.0 mg/dL SODIUM 141 135 - 146 mmol/L POTASSIUM 3.7 3.5 - 5.1 mmol/L CHLORIDE 107 98 - 107 mmol/L CO2 25 22 - 32 mmol/L ANION GAP 9 7 - 15 mmol/L GLUCOSE 108 70 - 120 mg/dL CALCIUM 8.2(L) 8.4 - 10.2 mg/dL E GLOM FILT RATE >60.0Comment:If lindsey ent is , multiply estimated GFR by 1.159. >60 Specimen Performing Laborator y [facility] [address] [place] [address] * PREPARE (CROSSMATCH) PACKED RED BLOOD CELLS (05/02/2017 4:00 AM) Component Value Ref Range ASSOCIATED ORDER See Type and Screen for units Specimen Performing Laborator y [facility] [address] [place] [address] * PT/INR (05/02/2017 3:06 AM) Component Value Ref Range PT/INR-PT 13.1 11.5 - 14.6 seco nds PT/INR-INR 1.02 0.87 - 1.17 Specimen Performing Laborator y [facility] [address] [place] [address] * CHEST 1 VIEW (05/02/2017 3:02 AM) Specimen Performing Laborator y [facility] [address] [place] [address] Narrative EXAM CHEST 1 VIEW, 05/02/2017. HISTORY Febrile, chest pain. COMPARISON CR IMAGES- TRANSFER, OUTSIDE, OR [facility] DIGITIZED dated 03/24/2017. TECHNIQUE Portable semi erect chest x-ray. FINDINGS Tubes: None. Lines: None. Foreign Bodies: No unexpected radio-opaque foreign bodies. There are linear opacities at the left base and right mid lung field.The lungs are otherwise clear.The costophrenic angles are sharp and there is no pneumothorax. The cardiomediastinal silhouette and pulmonary vasculature are within normal limits. Osseous structures are unremarkable. IMPRESSION Bilateral linear atelectasis. The above results were communicated to LOLA VERA by dictating resident Moreno Sierra via Yodiot at 03:16 on 05/02/2017. I have personally reviewed this examination and agree with the resident/fellow physician's interpretation. Resident Physician: MORENO SIERRA [[id number]] Radiologist: MARISA PAEZ MD [[id number]] Authenticated By Authenticating Date Authenticating Time Reading Providers(s) MARISA PAEZ MD 05-02-2017 03:54 MARISA PAEZ MD Procedure Note Interface, Rad In - 05/02/2017 3:54 AM EST EXAM CHEST 1 VIEW, 05/02/2017. HISTORY Febrile, chest pain. COMPARISON CR IMAGES- TRANSFER, OUTSIDE, OR S DIGITIZED dated 03/24/2017. TECHNIQUE Portable semi erect chest x-ray. FINDINGS Tubes: None. Lines: None. Foreign Bodies: No unexpected radio-opaque foreign bodies. There are linear opacities at the left base and right mid lung field.Thelungs are otherwise clear.The costophrenic angles are sharp and there is no pneumothorax. Thecardiomediastinal silhouette and pulmonary vasculature are within normal limits. Osseous structures areunremarkable. IMPRESSION Bilateral linear atelectasis. The above results were communicated to LOLA VERA by dictatingresident Moreno Sierra via [employer] at 03:16 on 05/02/2017. I have personally reviewed this examination and agree with the resident/fellow physician's interpretation. Resident Physician: MORENO SIERRA [[id number]] Radiologist: CHYNA PAEZ MD [[id number]] Authenticated By Authenticating Date AuthenticatingTime Reading Providers(s) MARISA PAEZ MD 05-02-2017 03:54NICALESSIA PAEZ MD * CULTURE QUANT URINE (05/02/2017 2:50 AM) Component Value Ref Range SPECIMEN DESCRIPTION CATHETERIZED URINE CULTURE LESS THAN 100 COLONIES/ML (NO GR OWTH) REPORT STATUS 05/03/2017 FINAL Specimen Performing Laborator y [facility] [address] [place] [address] * ROUTINE URINALYSIS (05/02/2017 2:50 AM) Component Value Ref Range COLOR, UA YELLOW YEL CLARITY, UA CLEAR CLEAR GLUCOSE, UA NEGATIVE NEG mg/dL BILIRUBIN, UA NEGATIVE NEG KETONE, UA TRACE(A) NEG mg/dL SPECIFIC GRAVITY 1.017 1.003 - 1.030 BLOOD, UA NEGATIVE NEG PH, UA 6.0 5.0 - 7.5 units PROTEIN, UA NEGATIVE NEG mg/dL UROBILINOGEN, UA NORMAL NORM mg/dL NITRITE, UA NEGATIVE NEG ESTERASE, UA NEGATIVE NEG COMMENT, UA SCREEN NEGATIVE - MICROSCOPIC NO T DONE Specimen Performing Laborator y Urine [facility] [address] [place] [address] * BLOOD GAS, VENOUS (05/02/2017 1:18 AM) Component Value Ref Range TEMP, CENTIGRADE 37.0 degree C PH, VENOUS 7.371 7.320 - 7.430 un its PCO2, VENOUS 43.4 40.0 - 60.0 mm H g PO2, VENOUS 61.4(H) 25.0 - 50.0 mm H g BICARBONATE, BARRY 24.5 23.0 - 31.0 mmo l/L BASE DEFICIT, BARRY 0.1 0 - 2.0 mmol/L HEMOGLOBIN, MEASURED 7.2(L) 12.0 - 15.3 g/dL OXYHEMOGLOBIN, BARRY 88.9(H) 40.0 - 85.0 % total Hgb CARBOXYHEMOGLOBIN 1.8(H)Comment:SMOKERS: 0-9.0 % 0 - 1.5 % total Hgb METHEMOGLOBIN 0.5 0 - 1.5 % total Hgb REDUCED HGB, BARRY 8.8 % total Hgb O2 CONTENT,VENOUS 9.1 7.0 - 18.0 %vo l Specimen Performing [facility] [address] [address] * BASIC METAB PANEL, BMP (05/02/2017 1:18 AM) Component Value Ref Range BUN 16 6 - 20 mg/dL CREATININE 0.5 Comment: GFR should be used to assess renal function. Plasma/Serum creatinine may not be able to properly reflect renal function in some cases. 0.5 - 1.0 mg/dL SODIUM 139 135 - 146 mmol/L POTASSIUM 3.7 3.5 - 5.1 mmol/L CHLORIDE 105 98 - 107 mmol/L CO2 23 22 - 32 mmol/L ANION GAP 11 7 - 15 mmol/L GLUCOSE 113 70 - 120 mg/dL CALCIUM 8.0(L) 8.4 - 10.2 mg/dL E GLOM FILT RATE >60.0Comment:If lindsey ent is , multiply estimated GFR by 1.159. >60 Specimen Performing [facility] [address] [address] * LACTATE (05/02/2017 1:18 AM) Component Value Ref Range LACTIC ACID 0.5 0.4 - 2.0 mmol/L Specimen Performing Laborator [facility] [address] [address] * CBC/DIFF (05/02/2017 1:18 AM) Component Value Ref Range WBC 6.83Comment:RESULTS RECHECKED 4. 00 - 10.80 K/uL RBC 1.98(L)Comment:RESULTS RECHECKED 3.85 - 5.15 M/uL HGB 6.3(LL)Comment:RESULTS RECHECKED 12.0 - 15.3 g/dL HCT 20.2(L) 36.0 - 45.2 % MCV 102.0(H) 81.5 - 97.5 fL MCH 31.8 27.0 - 34.0 pg MCHC 31.2(L) 32.0 - 36.0 g/dL RDW 14.7 11.5 - 15.5 % PLATELET COUNT 115(L)Comment:RESULTS RECHECKED 140 - 400 K/uL MPV 10.5 6.6 - 11.1 fL NEUTS 73.6 40 - 75 % LYMPHS 17.1(L) 18 - 42 % MONOS 8.1 1 - 11 % EOS 0.4 0 - 6 % BASOS 0.1 0 - 2 % IMMATURE GRANULOCYTE 0.7 0 - 2 % ABS. NEUTS 5.02 1.8 - 7.7 K/uL ABS. LYMPHS 1.17 1.0 - 4.8 K/uL ABS. MONOS 0.55 0.0 - 1.1 K/uL ABS. EOS 0.03 0.0 - 0.7 K/uL ABS. BASOS 0.01 0.0 - 0.2 K/uL ABSOLUTE IMMATURE GRANULOCYTES 0.05 0 .0 - 0.2 K/uL Specimen Performing Laborator y [facility] [address] [place] [address] * TYPE AND SCREEN (05/02/2017 1:18 AM) Component Value Ref Range SAMPLE EXPIRES 05/05/2017 ABO/RH(D) A POSITIVE ANTIBODY SCREEN NEGATIVE UNIT NUMBER [id number] BLOOD COMPONENT TYPE RBC LEUKOREDUCED UNIT DIVISION 00 STATUS OF UNIT TRANSFUSED CROSSMATCH RESULT ELECTRONICALLY COMPATIBLE UNIT NUMBER [id number] BLOOD COMPONENT TYPE RBC LEUKOREDUCED UNIT DIVISION 00 STATUS OF UNIT TRANSFUSED CROSSMATCH RESULT ELECTRONICALLY COMPATIBLE Specimen Performing Laborator y [facility] [address] [place] [address] * GLUCOSE METER STAT STRIP (05/01/2017 9:10 AM) Component Value Ref Range GLUCOSE METER 134(H) 70 - 120 mg/dL Specimen Performing [facility] [address] [address] * CBC/DIFF (05/01/2017 5:46 AM) Component Value Ref Range WBC 7.29 4.00 - 10.80 K/u L RBC 2.17(L) 3.85 - 5.15 M/uL HGB 7.1(L) 12.0 - 15.3 g/dL HCT 22.3(L) 36.0 - 45.2 % MCV 102.8(H) 81.5 - 97.5 fL MCH 32.7 27.0 - 34.0 pg MCHC 31.8(L) 32.0 - 36.0 g/dL RDW 14.9 11.5 - 15.5 % PLATELET COUNT 141 140 - 400 K/uL MPV 10.5 6.6 - 11.1 fL NEUTS 75.4(H) 40 - 75 % LYMPHS 17.4(L) 18 - 42 % MONOS 6.7 1 - 11 % BASOS 0.1 0 - 2 % IMMATURE GRANULOCYTE 0.4 0 - 2 % ABS. NEUTS 5.49 1.8 - 7.7 K/uL ABS. LYMPHS 1.27 1.0 - 4.8 K/uL ABS. MONOS 0.49 0.0 - 1.1 K/uL ABS. BASOS 0.01 0.0 - 0.2 K/uL ABSOLUTE IMMATURE GRANULOCYTES 0.03 0 .0 - 0.2 K/uL Specimen Performing [facility] [address] [id number] * BASIC METAB PANEL, BMP (05/01/2017 5:46 AM) Component Value Ref Range BUN 16 6 - 20 mg/dL CREATININE 0.5 Comment: GFR should be used to assess renal function. Plasma/Serum creatinine may not be able to properly reflect renal function in some cases. 0.5 - 1.0 mg/dL SODIUM 141 135 - 146 mmol/L POTASSIUM 4.1 3.5 - 5.1 mmol/L CHLORIDE 108(H) 98 - 107 mmol/L CO2 24 22 - 32 mmol/L ANION GAP 9 7 - 15 mmol/L GLUCOSE 96 70 - 120 mg/dL CALCIUM 7.4(L) 8.4 - 10.2 mg/dL E GLOM FILT RATE >60.0Comment:If lindsey ent is , multiply estimated GFR by 1.159. >60 Specimen [place] [address] * GLUCOSE METER STAT STRIP (04/30/2017 10:08 PM) Component Value Ref Range GLUCOSE METER 124(H) 70 - 120 mg/dL Specimen [place] [address] * INCENTIVE SPIROMETRY-GEN (04/30/2017 6:58 PM) Component Value Ref Range RCS Billing Sent Yes Narrative Luis Guerra RRT 04/30/2017 6:58 PM TREATMENT / PROCEDURE NOTE - [facility] [place] [id number] Name: Reggie Campos Location: [address] STREETA Date: 04/30/2017 Time: 6:57 PM Date and Time of Procedure: 04/30/2017 at 6:57 PM The following was performed, Non-Medicated Procedure: Incentive Spirometry. Achieved IC: 1.25(L). and Incentive Spirometer Device was issued / replaced. Lung Sounds were inspiratory and expiratory, diminished bilaterally. Cough and Sputum: An effective cough produced a no sputum. No Additional Treatment/Procedure. * INCENTIVE SPIROMETER DEVICE-GEN (04/30/2017 6:58 PM) Component Value Ref Range RCS Billing Sent Yes Narrative Luis Guerra CELLULOID TRIMMER 04/30/2017 6:58 PM TREATMENT / PROCEDURE NOTE - Respiratory Care Services [place] [address] Name: Reggie Campos Location: [facility]/A Date: 04/30/2017 Time: 6:57 PM Date and Time of Procedure: 04/30/2017 at 6:57 PM The following was performed, Non-Medicated Procedure: Incentive Spirometry. Achieved IC: 1.25(L). and Incentive Spirometer Device was issued / replaced. Lung Sounds were inspiratory and expiratory, diminished bilaterally. Cough and Sputum: An effective cough produced a no sputum. No Additional Treatment/Procedure. * INTRA-OP C-ARM CASE (04/30/2017 1:23 PM) Specimen Performing Laborator y [facility] [address] [place] [address] Narrative This is an imaging study not interpreted or resulted by a S or S contracted Radiologist Procedure Note Lisa, Rad In - 04/30/2017 1:24 PM EST This is an imaging study not interpreted or resulted by a S or Scontracted Radiologist * GLUCOSE METER STAT STRIP (04/30/2017 9:22 AM) Component Value Ref Range GLUCOSE METER 89 70 - 120 mg/dL Specimen Performing Laborator y [facility] [address] [place] [address] in this encounter Visit Diagnoses Diagnosis SIRS (systemic inflammatory response syndrome) (HCC) - Primary Systemic inflammatory response syndrome, unspecified Postoperative anemia due to acute blood loss Acute posthemorrhagic anemia HTN (hypertension) Unspecified essential hypertension Tobacco abuse Tobacco use disorder Spinal stenosis Spinal stenosis, unspecified region other than cervical GERD (gastroesophageal reflu x disease) Esophageal reflux Thrombocytopenia (HCC) Thrombocytopenia, unspecified in this encounter Administered Medications Inactive Administered Medications - up to 3 most recent administrations Medication Order MAR Action Action Date Dose Rate Site acetaminophen (TYLENOL) tab 975 mg 975 mg, Oral, ONCE, Wed04/30/17 at 0815 Given 04/30/2017 09:27 EST 975 mg acetaminophen (TYLENOL) tab 975 mg 975 mg, Oral, QID, First dose on Wed04/30/17 at 1800, Last dose on Wed05/05/17 at 1200 Given 05/03/2017 18:49 EST 975 mg in this encounter Insurance Payer Benefit Plan / Group Subscriber ID Type Phone Address MEDICARE MEDICARE A AND B [id number] Medicare [facility] [id number] [address] [place] [address] as of this encounter
--- OUTSIDE RECORDS SUMMARY | 2023-02-08 02:15 | External Medical Summary | Summary of Care ---
Author Name Unknown [place] [address] Phone Care Team Providers Care Radiology Transporter Name Role Phone Casey Rodgers MD Primary Care Provider [phone] Encounter Details Date Type Department Care Team Description 03/24/2017 Orders Only Orthopaedics Spine Surgery, [place] [address] [place] [address] Colin Krause MD [address] [place] [address] Allergies Active Allergy Reactions Severity [...] as needed. 30 Tab 11 02/26/2017 Active traMADol (ULTRAM) 50 MG Tablet Take [...] Description 04/16/2017 Imaging Radiology [facility] [address] [facility] [address] 04/16/2017 Imaging Radiology [facility] [address] [place] [address] 04/16/2017 Imaging Radiology [facility] [address] [place] [address] 04/16/2017 [facility] [address] [place] [address] 11/01/2017 Office Visit Cardiology Sterling Lockhart MD [address] [place] [address] [phone] Health Maintenance Due Date Last Done Comments [...] of this encounter Implants Implanted Type Area Poultry Offal Icer Device Identifier Expiration Date Model / Serial / Lot Dbx 10 [id number] - [id number] - [id number] Implanted:Qt y: 1 on 01/11/2015 by Colin Krause MD Tissue - Human N/A: Spine Lumbar MUSCULOSKELETAL TRANSPLANT FND 08/18/2016 [id number] / [id number] / Dbx [facility] [id number] - [id number] - [id number] Implanted:Qt y: 1 on 01/11/2015 by Colin Krause MD Tissue - Human N/A: Spine Lumbar MUSCULOSKELETAL TRANSPLANT FND 08/18/2016 689566 / [id number] / Viper2 Straight [id number] Cocr - [id number] Implanted:Qt y: 2 on 01/11/2015 by Colin Krause MD N/A: Spine Lumbar JNJ : DEPUY SPINE [id number] / / Screw 6x40 Poly Si [id number] - [id number] Implanted:Qt y: 1 on 01/11/2015 by Colin Krause MD N/A: Spine Lumbar JNJ : ETHICON CARDIOVATIONS [id number] / / Screw 6x40 Ti Uni [id number] - [id number] Implanted:Qt y: 8 on 01/11/2015 by Colin Krause MD N/A: Spine Lumbar JNJ : ETHICON CARDIOVATIONS [id number] / / Screw 5x40 Ti Uni [id number] - [id number] Implanted:Qt y: 2 on 01/11/2015 by Colin Krause MD N/A: Spine Lumbar JNJ : ETHICON CARDIOVATIONS [id number] / / Screw 6x45 Ti Uni [id number] - [id number] Implanted:Qt y: 6 on 01/11/2015 by Colin Krause MD N/A: Spine Lumbar JNJ : ETHICON CARDIOVATIONS [id number] / / Screw 7x45 Ti Uni [id number] - [id number] Implanted:Qt y: 4 on 01/11/2015 by Colin Krause MD N/A: Spine Lumbar JNJ : DEPUY SPINE [id number] / / Screw Set Sng Inner [id number] - [id number] Implanted:Qt y: 20 on 01/11/2015 by Colin Krause MD N/A: Spine Lumbar JNJ : DEPUY SPINE [id number] / / Expedium Ti Sfx 5.5 Lat A2 - [id number] Implanted:Qt y: 1 on 01/11/2015 by Colin Krause MD N/A: Spine Lumbar JNJ : ETHICON CARDIOVATIONS [id number] / / Expedium Ti Sfx 5.5 Lat A5 - [id number] Implanted:Qt y: 1 on 01/11/2015 by Colin Krause MD N/A: Spine Lumbar JNJ : ETHICON CARDIOVATIONS [id number] / / as of this encounter Results * RADIOLOGY EXAM - GENERAL RADIOLOGY (IMAGES ONLY, NO REPORT) (03/24/2017 2:10 PM) Specimen Performing Laborator y [facility] [address] [facility] [place] [address] Narrative This is an imaging study not interpreted or resulted by a S or [facility] contracted Radiologist Procedure Note Interface, Rad In - 04/08/2017 2:11 PM EST This is an imaging study not interpreted or resulted by a [facility] or GHScontracted Radiologist in this encounter Insurance Payer Benefit Plan / Group Subscriber ID Type Phone Address MEDICARE MEDICARE A AND B [id number] Medicare [facility] [id number] [address] [place] [address] as of this encounter
--- OUTSIDE RECORDS SUMMARY | 2023-02-08 02:15 | External Medical Summary ---
Author Name Unknown Address [place] [address] Phone Organization K01:[place] [address] [address] [place] [id number] Laboratory Report Ordering Provider Test Date Status GALO LYNNCORA 04/22/2017 16:53:00 Final Observation Date Value Abnormality Reference Status HbA1C 04/22/2017 17:40 5.0 4.0-6.4 Fin al Performing Location [place] [address] [address] [facility] [address]
--- OUTSIDE RECORDS SUMMARY | 2023-02-08 02:15 | External Medical Summary | Summary of Care ---
Author Name Unknown Organization [place] [address] Phone Care Team Providers Care Pulpwood Buyer Name Role Phone Casey Rodgers MD Primary Care Provider + [phone] Reason for Referral * (Within 10 days (routine)) Status Reason Specialty Diagnoses / Procedures Referre d By Contact Referred To Contact Shane Guadarrama MD [address] [place] [address] Reason for Visit * Reason Comments FOLLOW UP T7-L4 PSF Encounter Details Date Type Department Care Team Description 04/22/2017 Office Visit Orthopaedics Spine Surgery, [place] [address] [place] [address] Colin Krause MD [address] [place], [place] [id number] Spondylosis of lumbosacral region without myelopathy or [...] dictated note for documentation on this encounter. [facility] Shane Guadarrama MD 04/22/2017 2:42 PM Hibiclens [...] Encounters Date Type Specialty Care Team Description 04/22/2017 Office Visit PreSurgery Education2, Presurgical Assessment [address], [place] [address] 04/30/2017 Hospital Encounter Operating Room IP Colin Krause MD [address] [place] [address] 11/01/2017 Office Visit Cardiology Sterling Lockhart MD [address] [place] [address] [phone] Scheduled Tests Name Priority Associated Diagnoses Order [...] *ADVANCE DIRECTIVE NOT ON FILE 09/08/2014 *DEPRESSION SCREENINGTAMI FOR PTS 18 AND OVER 09/08/2014 Influenza Vaccine (FLU shot) (#1) 2016 LIPID SCREEN EVERY 5 YRS-WOM EN AGE 45-75 09/05/2019 09/04/2014 DIABETES SCREEN EVERY 3 YRS- AGE 45 AND ABOVE 04/08/2020 04/08/2017, 01/17/2015, 01/14/2015, Additional history exists DXA-SCREENING EVERY 7 YRS-US E SMARTSET# 3348 TO ORDER 12/26/2021 12/26/2014 as of this encounter Implants Implanted Type Area Gypsum Block Setter Device Identifier Expiration Date Model / Serial / Lot Dbx 10 072546 - [id number] - [id number] Implanted:Qt y: 1 on 01/11/2015 by Colin Krause MD Tissue - Human N/A: Spine Lumbar MUSCULOSKELETAL TRANSPLANT FND 08/18/2016 973151 / [id number] / Dbx 10 243836 - [id number] - [id number] Implanted:Qt y: 1 on 01/11/2015 by Colin Krause MD Tissue - Human N/A: Spine Lumbar MUSCULOSKELETAL TRANSPLANT FND 08/18/2016 034090 / [id number] / Viper2 Straight [id number] Cocr - [id number] Implanted:Qt y: 2 on 01/11/2015 by Colin Krause MD N/A: Spine Lumbar JNJ : DEPUY SPINE [id number] / / Screw 6x40 Poly Si [id number] - [id number] Implanted:Qt y: 1 on 01/11/2015 by Colin Krause MD N/A: Spine Lumbar JNJ : ETHICON CARDIOVATIONS [id number] / / Screw 6x40 Ti Uni [id number] - [id number] Implanted:Qt y: 8 on 01/11/2015 by Colin Krause MD N/A: Spine Lumbar JNJ : ETHICON CARDIOVATIONS [id number] / / Screw 5x40 Ti Uni [id number] - [id number] Implanted:Qt y: 2 on 01/11/2015 by Colin Krause MD N/A: Spine Lumbar JNJ : ETHICON CARDIOVATIONS [id number] / / Screw 6x45 Ti Uni [id number] - [id number] Implanted:Qt y: 6 on 01/11/2015 by Colin Krause MD N/A: Spine Lumbar JNJ : ETHICON CARDIOVATIONS [id number] / / Screw 7x45 Ti Uni [id number] - [id number] Implanted:Qt y: 4 on 01/11/2015 by Colin Krause MD N/A: Spine Lumbar JNJ : DEPUY SPINE [id number] / / Screw Set Sng Inner [id number] - [id number] Implanted:Qt y: 20 on 01/11/2015 by Colin Krause MD N/A: Spine Lumbar JNJ : DEPUY SPINE [id number] / / Expedium Ti Sfx 5.5 Lat A2 - [id number] Implanted:Qt y: 1 on 01/11/2015 by Colin Krause MD N/A: Spine Lumbar JNJ : ETHICON CARDIOVATIONS [id number] / / Expedium Ti Sfx 5.5 Lat A5 - [id number] Implanted:Qt y: 1 on 01/11/2015 by Colin Krause MD N/A: Spine Lumbar JNJ : ETHIFangcang CARDIOVATIONS [id number] / / as of this encounter Visit Diagnoses Diagnosis Spondylosis of lumbosacral r egion without myelopathy or radiculopathy - Primary Lumbosacral spondylosis without myelopathy Aftercare following surgery of the musculoskeletal system Aftercare following surgery of the musculoskeletal system, NEC in this encounter Insurance Payer Benefit Plan / Group Subscriber ID Type Phone Address MEDICARE MEDICARE A AND B [id number] Medicare [place], [place] AARP AARP [id number] [address] [place] [address] as of this encounter
--- OUTSIDE RECORDS SUMMARY | 2023-02-08 02:15 | External Medical Summary ---
Author Name Unknown Address Unknown Organization R:IT USE ONLY!!! Laboratory Report Ordering Provider Test Date Status CHIARA LYNN 04/22/2017 16:59:00 Final Observation Date Value Abnormality Reference Status Source 04/22/2017 14:49 CLEAN CATCH URINE Final Bacteria identified in Unspecified specimen by Culture 04/23/2017 13:33 10,000 TO 100,000 COLONIES/ML AEROCOCCUS URINAE ROUTINE ANTIMICROBIAL SUSCEPTIBILITY TESTING METHODS AND STANDARDIZED INTERPRETATION CRITERIA ARE NOT AVAILABLE FOR AEROCOCCUS SPECIES. AEROCOCCUS URINAE HAS BEEN DESCRIBED SUSCEPTIBLE TO PENICILLIN, AMOXICILLIN AND NITROFURANTION, BUT RESISTANT TO SULFONAMIDES. Abnormal Final Bacteria identified in Unspecified specimen by Culture 04/23/2017 13:33 LESS THAN 10,000 COLONIES/ML MIXED NORMAL ANNETTE Final REPORT STATUS 04/23/2017 16:42 04/23/2017 FINAL Final Performing Location IT USE ONLY!!!
--- OUTSIDE RECORDS SUMMARY | 2023-02-08 02:15 | External Medical Summary ---
Author Name Unknown Address [facility] [place] [address] Phone Organization K01:[facility] [address] [place] [id number] Laboratory Report Ordering Provider Test Date Status SHANE,CHIARA 04/22/2017 16:53:00 Final Observation Date Value Abnormality Reference Status Carboxyhemoglobin 04/22/2017 17:22 3.9 Above high norm al 0-1.5 Final Performing Location [facility] [address] [facility] [address]
--- OUTSIDE RECORDS SUMMARY | 2023-02-08 02:15 | External Medical Summary | Summary of Care ---
Author Name Unknown Organization [place] [address] Phone Care Team Providers Care Fruit Packer Face And Fill Name Role Phone Casey Rodgers MD Primary Care Provider + [phone] Reason for Visit * Reason Comments FOLLOW UP T7-L4 PSF Encounter Details Date Type Department Care Team Description 04/22/2017 Office Visit Orthopaedics Spine Surgery, [place] [address] [place], [place] [address] Colin Krause MD [address] [place], [place] [address] Aftercare following surgery of the musculoskeletal system* Allergies Active Allergy Reactions Severity Noted Date [...] as of this encounter Progress Notes * Drake Haro MD - 04/22/2017 1:00 PM EST Please see dictation for documentation on this encounter. Drake Haro MD 04/22/2017 2:21 PM in this encounter Plan of Treatment Upcoming Encounters Date Type Specialty Care Team Description 11/01/2017 Office Visit Cardiology Sterling Lockhart MD [address] [facility] [place] [place] [address] [phone] Health Maintenance Due Date Last Done Comments [...] this encounter Implants Implanted Type Area Bank Credit Card Collection Clerk Device Identifier Expiration Date Model / Serial / Lot Dbx 10 475966 - [id number] - [id number] Implanted:Qt y: 1 on 01/11/2015 by Colin Krause MD Tissue - Human N/A: Spine Lumbar MUSCULOSKELETAL TRANSPLANT FND 08/18/2016 491229 / [id number] / Dbx 10 180357 - [id number] - [id number] Implanted:Qt y: 1 on 01/11/2015 by Colin Krause MD Tissue - Human N/A: Spine Lumbar MUSCULOSKELETAL TRANSPLANT FND 08/18/2016 805042 / [id number] / Viper2 Straight [id number] Cocr - [id number] Implanted:Qt y: 2 on 01/11/2015 by Colin Krause MD N/A: Spine Lumbar JNJ : DEPUY SPINE [id number] / / Screw 6x40 Poly Si [id number] - [id number] Implanted:Qt y: 1 on 01/11/2015 by Colin Krause MD N/A: Spine Lumbar JNJ : ETHICON CARDIOVATIONS [id number] / / Screw 6x40 Ti Uni [id number] - [id number] Implanted:Qt y: 8 on 01/11/2015 by Colin Krause MD N/A: Spine Lumbar JNJ : ETHICON CARDIOVATIONS [id number] / / Screw 5x40 Ti Uni [id number] - [id number] Implanted:Qt y: 2 on 01/11/2015 by Colin Krause MD N/A: Spine Lumbar JNJ : ETHICON CARDIOVATIONS [id number] / / Screw 6x45 Ti Uni [id number] - [id number] Implanted:Qt y: 6 on 01/11/2015 by Colin Krause MD N/A: Spine Lumbar JNJ : ETHICON CARDIOVATIONS [id number] / / Screw 7x45 Ti Uni [id number] - [id number] Implanted:Qt y: 4 on 01/11/2015 by Colin Krause MD N/A: Spine Lumbar JNJ : DEPUY SPINE [id number] / / Screw Set Sng Inner [id number] - [id number] Implanted:Qt y: 20 on 01/11/2015 by Colin Krause MD N/A: Spine Lumbar JNJ : DEPUY SPINE [id number] / / Expedium Ti Sfx 5.5 Lat A2 - [id number] Implanted:Qt y: 1 on 01/11/2015 by Colin Krause MD N/A: Spine Lumbar JNJ : ETHICON CARDIOVATIONS [id number] / / Expedium Ti Sfx 5.5 Lat A5 - [id number] Implanted:Qt y: 1 on 01/11/2015 by Colin Krause MD N/A: Spine Lumbar JNJ : ETHICON CARDIOVATIONS [id number] / / as of this encounter Visit Diagnoses Diagnosis Aftercare following surgery of the musculoskeletal system - Primary Aftercare following surgery of the musculoskeletal system, NEC in this encounter Insurance Payer Benefit Plan / Group Subscriber ID Type Phone Address MEDICARE MEDICARE A AND B [id number] Medicare [facility] [id number] [address] [place] [address] as of this encounter
--- OUTSIDE RECORDS SUMMARY | 2023-02-08 02:15 | External Medical Summary ---
Author Name Unknown Address [facility] [place] [address] Phone Organization K01:[facility] [address] [place] [id number] Laboratory Report Ordering Provider Test Date Status GALO LYNNCORA 04/22/2017 16:53:00 Final Observation Date Value Abnormality Reference Status BUN 04/22/2017 17:50 32 Above high normal 6-20 Final Creatinine 04/22/2017 17:50 0.6 0.5-1.0 Fi nal Performing Location [facility] [address] [facility] [address]
--- OUTSIDE RECORDS SUMMARY | 2023-02-08 02:15 | External Medical Summary | Summary of Care ---
Author Name Unknown Organization [place] [address] Phone Care Team Providers Care Supervisor Throwing Department Name Role Phone Casey Rodgers MD Primary Care Provider + [phone] Reason for Visit * Reason Comments Blood Management Program Encounter Details Date Type Department Care Team Description 04/26/2017 Documentation Patient Blood Management, [place] [address] [place] [address] Juliano He RN Allergies Active Allergy Reactions Severity Noted Date [...] as of this encounter Progress Notes * Juliano He, RN - 04/26/2017 9:56 AM EST Formatting of this note may be different from the original. REFERRAL - Blood Conservation Program Name: Alexia Campos REQUESTING SERVICE: Ortho Spine REASON FOR REFERRAL: new evaluation outpatient, pre-surgery Chart reviewed. In absence of anemia or personal beliefs that prohibit blood transfusion would not recommend urgent therapy with iron, vitamins, or erythroid stimulating agents at this time. Component Latest Ref Rng & Units 04/22/2017 WBC 4.00 - 10.80 K/uL 8.31 RBC 3.85 - 5.15 M/uL 4.63 HGB 12.0 - 15.3 g/dL 15.1 HCT 36.0 - 45.2 % 46.5 (H) MCV 81.5 - 97.5 fL 100.4 (H) MCH 27.0 - 34.0 pg 32.6 MCHC 32.0 - 36.0 g/dL 32.5 RDW 11.5 - 15.5 % 14.5 PLATELET COUNT 140 - 400 K/uL 189 MPV 6.6 - 11.1 fL 11.4 (H) Please avoid any unnecessary phlebotomy. If not actively hemorrhaging, please only consider transfusion for severe anemia (e.g. Hgb less than 7-8). If not actively hemorrhaging, please use only a 1 unit PRBC dose and then re-evaluate. Balance possibility of harm with possibility of benefit with any anti-platelet or anti-coagulant therapies. Utilize Vitamin K in place of FFP when indicated. Please recommend outpatient follow up that includes repeat assessment of hemoglobin when stable fordischarge. Thank you for allowing Blood Management to participate in the care of this patient. Juliano He RN Coordinator [facility] Blood Conservation Program Beeper # [id number] 04/26/2017 9:57 AM in this encounter Plan of Treatment Upcoming Encounters Date Type Specialty Care Team Description 04/30/2017 Surgery Operating Room IP Colin Krause MD [address] [place] [address] ARTHRODESIS SPINE POSTERIOR LUMBAR 04/30/2017 Hospital Encounter Operating Room IP Colin Krause MD [address] [place] [address] 11/01/2017 Office Visit Cardiology Sterling Lockhart MD [address] [place] [address] [phone] Health Maintenance Due Date Last Done Comments [...] of this encounter Implants Implanted Type Area Mail Technician Device Identifier Expiration Date Model / Serial / Lot Dbx 10cc 960783 - [id number] - [id number] Implanted:Qt y: 1 on 01/11/2015 by Colin Krause MD Tissue - Human N/A: Spine Lumbar MUSCULOSKELETAL TRANSPLANT FND 08/18/2016 295701 / [id number] / Dbx 10cc 335755 - [id number] - [id number] Implanted:Qt y: 1 on 01/11/2015 by Colin Krause MD Tissue - Human N/A: Spine Lumbar MUSCULOSKELETAL TRANSPLANT FND 08/18/2016 776054 / [id number] / Viper2 Straight [id number] Cocr - [id number] Implanted:Qt y: 2 on 01/11/2015 by Colin Krause MD N/A: Spine Lumbar JNJ : DEPUY SPINE [id number] / / Screw 6x40 Poly Si [id number] - [id number] Implanted:Qt y: 1 on 01/11/2015 by Colin Krause MD N/A: Spine Lumbar JNJ : ETHICON CARDIOVATIONS [id number] / / Screw 6x40 Ti Uni [id number] - [id number] Implanted:Qt y: 8 on 01/11/2015 by Colin Krause MD N/A: Spine Lumbar JNJ : ETHICON CARDIOVATIONS [id number] / / Screw 5x40 Ti Uni [id number] - [id number] Implanted:Qt y: 2 on 01/11/2015 by Colin Krause MD N/A: Spine Lumbar JNJ : ETHICON CARDIOVATIONS [id number] / / Screw 6x45 Ti Uni [id number] - [id number] Implanted:Qt y: 6 on 01/11/2015 by Colin Krause MD N/A: Spine Lumbar JNJ : ETHICON CARDIOVATIONS [id number] / / Screw 7x45 Ti Uni [id number] - [id number] Implanted:Qt y: 4 on 01/11/2015 by Colin Krause MD N/A: Spine Lumbar JNJ : DEPUY SPINE [id number] / / Screw Set Sng Inner [id number] - [id number] Implanted:Qt y: 20 on 01/11/2015 by Colin Krause MD N/A: Spine Lumbar JNJ : DEPUY SPINE [id number] / / Expedium Ti Sfx 5.5 Lat A2 - [id number] Implanted:Qt y: 1 on 01/11/2015 by Colin Krause MD N/A: Spine Lumbar JNJ : ETHICON CARDIOVATIONS [id number] / / Expedium Ti Sfx 5.5 Lat A5 - [id number] Implanted:Qt y: 1 on 01/11/2015 by Colin Krause MD N/A: Spine Lumbar JNJ : ETHICON CARDIOVATIONS [id number] / / as of this encounter Insurance Payer Benefit Plan / Group Subscriber ID Type Phone Address MEDICARE MEDICARE A AND B [id number] Medicare [place] [facility] [id number] [address] [place] [address] as of this encounter
--- OUTSIDE RECORDS SUMMARY | 2023-02-08 02:15 | External Medical Summary | Summary of Care ---
Author Name Unknown Organization [place] [address] Phone Care Team Providers Care Banquet Supervisor Name Role Phone Casey Rodgers MD Primary Care Provider [phone] Encounter Details Date Type Department Care Team Description 04/05/2017 Orders Only Orthopaedics Spine Surgery, [place] [address] [place] [address] Colin Krause MD [address] [place] [address] Allergies Active Allergy Reactions Severity [...] 04/16/2017 [facility] [address] [facility] [address] 04/16/2017 Imaging Radiology [facility] [address] [place] [place] [address] 04/16/2017 Imaging Radiology [facility] [address] [place] [address] 04/16/2017 [facility] [address] [place] [address] 11/01/2017 Office Visit Cardiology Sterling Lockhart MD [address] [place] [address] [phone] Health Maintenance Due Date Last Done Comments [...] of this encounter Implants Implanted Type Area Tech Writer Device Identifier Expiration Date Model / Serial / Lot Dbx 10 [id number] - [id number] - [id number] Implanted:Qt y: 1 on 01/11/2015 by Colin Krause MD Tissue - Human N/A: Spine Lumbar MUSCULOSKELETAL TRANSPLANT FND 08/18/2016 [id number] / [id number] / Dbx [facility] [id number] - [id number] - [id number] Implanted:Qt y: 1 on 01/11/2015 by Colin Krause MD Tissue - Human N/A: Spine Lumbar MUSCULOSKELETAL TRANSPLANT FND 08/18/2016 444410 / [id number] / Viper2 Straight [id number] Cocr - [id number] Implanted:Qt y: 2 on 01/11/2015 by Colin Krause MD N/A: Spine Lumbar JNJ : DEPU[employer] SPINE [id number] / / Screw 6x40 Poly Si [id number] - [id number] Implanted:Qt y: 1 on 01/11/2015 by Colin Krause MD N/A: Spine Lumbar JNJ : [employer] [id number] / / Screw 6x40 Ti Uni [id number] - [id number] Implanted:Qt y: 8 on 01/11/2015 by Colin Krause MD N/A: Spine Lumbar JNJ : [employer] [id number] / / Screw 5x40 Ti Uni [id number] - [id number] Implanted:Qt y: 2 on 01/11/2015 by Colin Krause MD N/A: Spine Lumbar JNJ : [employer] [id number] / / Screw 6x45 Ti Uni [id number] - [id number] Implanted:Qt y: 6 on 01/11/2015 by Colin Krause MD N/A: Spine Lumbar JNJ : [employer] [id number] / / Screw 7x45 Ti Uni [id number] - [id number] Implanted:Qt y: 4 on 01/11/2015 by Colin Krause MD N/A: Spine Lumbar JNJ : DEPU[employer]INE [id number] / / Screw Set Sng Inner [id number] - [id number] Implanted:Qt y: 20 on 01/11/2015 by Colin Krause MD N/A: Spine Lumbar JNJ : DEPUY SPINE [id number] / / Expedium Ti Sfx 5.5 Lat A2 - [id number] Implanted:Qt y: 1 on 01/11/2015 by Colin Krause MD N/A: Spine Lumbar JNJ : [employer] [id number] / / Expedium Ti Sfx 5.5 Lat A5 - [id number] Implanted:Qt y: 1 on 01/11/2015 by Colin Krause MD N/A: Spine Lumbar JNJ : [employer] [id number] / / as of this encounter Results * RADIOLOGY EXAM - NUC MED (IMAGES ONLY, NO REPORT) (04/05/2017 2:16 PM) Specimen Performing Laborator y [facility] [address] [facility] [place] [address] Narrative This is an imaging study not interpreted or resulted by a [facility] or [facility] contracted Radiologist Procedure Note Interface, Rad In - 04/08/2017 2:16 PM EST This is an imaging study not interpreted or resulted by a [facility]HS or GHScontracted Radiologist in this encounter Insurance Payer Benefit Plan / Group Subscriber ID Type Phone Address MEDICARE MEDICARE A AND B [id number] Medicare [facility] [id number] [address] [place] [address] as of this encounter
--- OUTSIDE RECORDS SUMMARY | 2023-02-08 02:15 | External Medical Summary ---
Author Name Unknown Address Unknown Organization R:IT USE ONLY!!! Laboratory Report Ordering Provider Test Date Status CHIARA LYNN 04/22/2017 14:48:00 Final Observation Date Value Abnormality Reference Status Source 04/22/2017 14:48 NARANGIE Fin al MSSA RESULT 04/22/2017 19:14 NEGATIVE. NO ME THICILLIN SENSITIVE STAPHYLOCOCCUS AUREUS DETECTED BY PCR (AMPLIFIED PROBE). MSSAN Final MRSA RESULT 04/22/2017 19:14 NEGATIVE. NO ME THICILLIN RESISTANT STAPHYLOCOCCUS AUREUS DETECTED BY PCR (AMPLIFIED PROBE). MRSAN Final Performing Location IT USE ONLY!!!
--- OUTSIDE RECORDS SUMMARY | 2023-02-08 02:15 | External Medical Summary ---
Author Name Unknown Address Unknown Organization GBB2:Performed at [facility] [address] [address] Laboratory Report Ordering Provider Test Date Status CHIARA LYNN 04/22/2017 16:53:00 Final Observation Date Value Abnormality Reference Status Specimen expiration date of Blood 04/22/2017 18:24 05/03/2017 Final ABO and Rh (D) 04/22/2017 21:06 A POSITIVE Final Antibody Screen 04/22/2017 21:06 NEGATIVE Final Unit Number 04/29/2017 10:23 [id number] Final Blood Component Type 04/29/2017 10:23 RBC LEUKOREDUCED Final Blood Unit ID 04/29/2017 10:23 00 Final Status of Unit 05/02/2017 07:35 DISCARDED Final Crossmatch result 04/29/2017 10:23 ELECTRONICALLY COMPATIBLE Final Performing Location Performed at [facility] [address] [facility] [address]
--- OUTSIDE RECORDS SUMMARY | 2023-02-08 02:15 | External Medical Summary ---
Author Name Unknown Address [address] [place] [address] Phone Organization K01:[facility] [address] [id number] Laboratory Report Ordering Provider Test Date Status LUCILLE REMYTwyla 05/02/2017 01:11:00 Final Observation Date Value Abnormality Reference Status Source 05/02/2017 00:55 BLOOD Fin al comment 05/02/2017 00:55 PERIPHERAL Fi nal Bacteria identified in Unspecified specimen by Culture 05/08/2017 00:28 NO GROWTH Final REPORT STATUS 05/08/2017 00:28 05/08/2017 FINAL Final Performing Location [facility] [address] [facility] [address]
--- OUTSIDE RECORDS SUMMARY | 2023-02-08 02:16 | External Medical Summary ---
Author Name Unknown Organization K08:[facility] [address] [place] [address] Laboratory Report Ordering Provider Test Date Status JADIEL HUA MD 09/04/2014 15:12:00-0400 Final Obs # Observation Date Value ABNL Reference Status Pe rforming Location 1 WBC 09/04/2014 15:42-0400 10.48 4.00-10.80 K/uL Final 2 RBC 09/04/2014 15:42-0400 4.35 3.85-5.15 M/uL Final 3 HGB 09/04/2014 15:42-0400 13.9 12.0-15.3 g/dL Final 4 HCT 09/04/2014 15:42-0400 41.2 36.0-45.2 % Final 5 MCV 09/04/2014 15:42-0400 94.7 81.5-97.5 fL Final 6 MCH 09/04/2014 15:42-0400 32.0 27.0-34.0 pg Final 7 MCHC 09/04/2014 15:42-0400 33.7 32.0-36.0 g/dL Final 8 RDW 09/04/2014 15:42-0400 14.5 11.5-15.5 % Final 9 PLT 09/04/2014 15:42-0400 171 140-400 K/uL Final 10 MPV 09/04/2014 15:42-0400 11.3 H 6.6-11.1 fL Final
--- OUTSIDE RECORDS SUMMARY | 2023-02-08 02:16 | External Medical Summary ---
Author Name Unknown Address [address] [id number] Phone Organization K01:[facility] [address] [id number] Laboratory Report Ordering Provider Test Date Status KIKE CRAWLEY DO [id number] Final Obs # Observation Date Value Abnormality Reference Status Performing Location 0 Parathyrin.intac t [Mass/volume] in Serum or Plasma [id number] Final [facility] [address] [facility] [address]
--- OUTSIDE RECORDS SUMMARY | 2023-02-08 02:16 | External Medical Summary ---
Author Name Unknown Address Unknown Organization : Laboratory Report Ordering Provider Test Date Status ALBIN CHAUDHARI [id number] Final Obs # Observation Date Value Abnormality Reference Status Performing Location 0 ABO and Rh (D) [id number] A POSITIVE F inal
--- OUTSIDE RECORDS SUMMARY | 2023-02-08 02:16 | External Medical Summary ---
Author Name Unknown Address [address] [facility] [place] [place] Phone Organization K01:[facility] [address] [facility] [address] Laboratory Report Ordering Provider Test Date Status ALBIN CHAUDHARI PAC [id number] Final Obs # Observation Date Value Abnormality Reference Status Performing Location 0 WBC [id number] 8.60 4.00-10.80 Final [facility] [address] [facility] [address] 1 RBC [id number] 4.65 3.85-5.15 Final [facility] [address] [facility] [address] 2 Hemoglobin 211628332181 14.0 12.0-15.3 Final [facility] [address] [facility] [address] 3 HCT [id number] 43.4 36.0-45.2 Final [facility] [address] [facility] [address] 4 MCV [id number] 93.3 81.5-97.5 [facility] [address] [facility] [address] 5 MCH [id number] 30.1 27.0-34.0 [facility] [address] [facility] [address] 6 MCHC [id number] 32.3 32.0-36.0 Final [facility] [address] [facility] [address] 7 RDW [id number] 14.6 11.5-15.5 [facility] [address] [facility] [address] 8 Platelets [id number] 195 140-400 Final [facility] [address] [facility] [address] 9 MPV [id number] 11.1 6.6-11.1 Final [facility] [address] [facility] [address] 10 Segs [id number] 63 40-75 Final [facility] [address] [facility] [address] 11 Lymphocytes 137269991661 30 18-42 Final [facility] [address] [facility] [address] 12 Monos [id number] 5 1-11 Final [facility] [address] [facility] 13 Eosinophils 878968738415 1 0-6 Final [facility] [address] [facility] [address] 14 Basos [id number] 1 0-2 Final [facility] [address] [facility] [address] 15 Segmented Neutrophils, Abs [id number] 5.45 1.8-7.7 Final [facility] [address] [facility] [address] 16 Lymphs, Abs [id number] 2.55 1.0-4.8 [facility] [address] [facility] 17 Monos, Abs 518424742949 0.44 0.0-1.1 [facility] [address] [facility] 18 Eos, Abs 240367532861 0.08 0.0-0.7 Final [facility] [address] [facility] [address] 19 Basos, Abs 860604108076 0.06 0.0-0.2 [facility] [address] [place] [address]
--- OUTSIDE RECORDS SUMMARY | 2023-02-08 02:16 | External Medical Summary ---
Author Name Unknown Organization K01:[facility], [address] [address] Laboratory Report Ordering Provider Test Date Status JADIEL HUA MD 09/04/2014 15:12:00-0400 Final Obs # Observation Date Value ABNL Reference Status Pe rforming Location 1 BUN 09/04/2014 21:42-0400 20 6-20 mg/dL Final 2 Creatinine 09/04/2014 21:42-0400 0.7 0.5-1.2 mg/dL Final GFR should be used to assess renal function. Plasma/Serum creatinine may not be able to properly reflect renal function in some cases. If patient is , multiply estimated GFR by 1.159.
--- OUTSIDE RECORDS SUMMARY | 2023-02-08 02:16 | External Medical Summary ---
Author Name Unknown Address Unknown Organization : Laboratory Report Ordering Provider Test Date Status ALBIN CHAUDHARI JIMMIE [id number] Final Obs # Observation Date Value Abnormality Reference Status Performing Location 0 ABO and Rh (D) [id number] A POSITIVE Final 1 Antibody Screen 105623954601 NEGATIVE Final 2 SAMPLE EXPIRES 147680578254 01/14/2015 Final 3 Unit Number [id number] F inal 4 BLOOD COMPONENT TYPE 386729408263 RBC LEUKOREDUCED Final 5 UNIT DIVISION [id number] 00 Final 6 STATUS OF UNIT 168129247890 REL FROM ALLOC Final 7 Crossmatch result [id number] ELECTRONICALLY COMPATIBLE Final 8 Unit Number [id number] F inal 9 BLOOD COMPONENT TYPE 500923028835 RBC LEUKOREDUCED Final 10 UNIT DIVISION [id number] 00 Final 11 STATUS OF UNIT [id number] REL FROM ALLOC Final 12 Crossmatch result [id number] ELECTRONICALLY COMPATIBLE Final
--- OUTSIDE RECORDS SUMMARY | 2023-02-08 02:16 | External Medical Summary ---
Author Name Unknown Address Unknown Organization : Laboratory Report Ordering Provider Test Date Status ALBIN CHAUDHARI [id number] Final Obs # Observation Date Value Abnormality Reference Status Performing Location 0 Protein [id number] 6.5 6.0-8.3 Final
--- OUTSIDE RECORDS SUMMARY | 2023-02-08 02:16 | External Medical Summary ---
Author Name Unknown Address [address] [id number] Phone Organization K01:[facility] [address] [id number] Laboratory Report Ordering Provider Test Date Status KIKE CRAWLEY DO [id number] Final Obs # Observation Date Value Abnormality Reference Status Performing Location 0 Creatinine 835165093676 0.8 0.5-1.2 Final [facility] [address] [facility] [address]
--- OUTSIDE RECORDS SUMMARY | 2023-02-08 02:16 | External Medical Summary ---
Author Name Unknown Address Unknown Organization : Laboratory Report Ordering Provider Test Date Status ALBIN CHAUDHARI [id number] Final Obs # Observation Date Value Abnormality Reference Status Performing Location 0 BUN [id number] 21 Above high normal 6-20 Final 1 Creatinine [id number] 0.6 0.5-1.0 Final
--- OUTSIDE RECORDS SUMMARY | 2023-02-08 02:16 | External Medical Summary ---
Author Name Unknown Organization K01:[facility], [address] [address] Laboratory Report Ordering Provider Test Date Status JADIEL HUA MD 09/04/2014 15:12:00-0400 Final Obs # Observation Date Value ABNL Reference Status Pe rforming Location 1 LDL, (direct) 09/04/2014 21:42-0400 76 0-129 mg/dL Final LDL CHOLESTEROL REFERENCE RANGES(mg/dL) <100 OPTIMAL GOAL FOR HIGH RISK PATIENTS 100-129 NEAR OR ABOVE NORMAL 130-159 BORDERLINE HIGH 160-189 HIGH >189 VERY HIGH
--- OUTSIDE RECORDS SUMMARY | 2023-02-08 02:16 | External Medical Summary ---
Author Name Unknown Organization K01:[facility], [address] [address] Laboratory Report Ordering Provider Test Date Status JADIEL HUA MD 09/04/2014 15:12:00-0400 Final Obs # Observation Date Value ABNL Reference Status Pe rforming Location 1 TSH 09/04/2014 21:48-0400 2.83 0.27-4.2 uIU/mL Final
--- OUTSIDE RECORDS SUMMARY | 2023-02-08 02:16 | External Medical Summary ---
Author Name Unknown Address [facility] [place] [address] Phone Organization K01:[place] [address] [place] [address] Laboratory Report Ordering Provider Test Date Status KIKE CRAWLEY [id number] Final Obs # Observation Date Value Abnormality Reference Status Performing Location 0 Albumin [Mass/volume] in Serum or Plasma by Bromocresol green (BCG) dye binding method [id number] 4.5 3.8-5.[address] [address]
--- OUTSIDE RECORDS SUMMARY | 2023-02-08 02:16 | External Medical Summary ---
Author Name Unknown Address [address] [id number] Phone Organization K01:[facility] [address] [facility] [address] Laboratory Report Ordering Provider Test Date Status KIKE CRAWLEY DO [id number] Final Obs # Observation Date Value Abnormality Reference Status Performing Location 0 25-OH Vitamin D total 873072921434 >60 >19 Final [facility] [address] [facility] [address]
--- OUTSIDE RECORDS SUMMARY | 2023-02-08 02:16 | External Medical Summary ---
Author Name Unknown Address [facility] [place] [address] Phone Organization K01:[facility] [address] [address] Laboratory Report Ordering Provider Test Date Status MICHAEL HANCOCK MD [id number] Final Obs # Observation Date Value Abnormality Reference Status Performing Location 0 specimen [id number] URINE Final [facility] [address] [address] 1 result [id number] >100,000 COLONIES/ML ESCHERICHIA COLI Final [place] [address] 2 result [id number] LESS THAN 10,000 COLONIES/ML MIXED ANNETTE Final [place] [address] [address] [place] [address] 3 report status [id number] 01/05/2015 FINAL Final [facility] [address] [address] 4 Bacteria identified in Unspecified specimen by Culture [id number] ESCHERICHIA COLI Abnormal Final [place] [address] [place] [address]
== END 2023-02-05 13:01 | disposition home health service (06) | DRG 394 ==
LOC: ED 13:50 → SUATTDRO 17:19 → 2S 17:19

== ENCOUNTER 2023-02-16 10:37 | Inpatient (IN) ==
[2023-02-16 11:47] LABS: Basophils # (auto) 0.06 K/uL (0.00-0.20); Basophils % (auto) 0.7 %; Eosinophils # (auto) 0.01 K/uL (0.00-0.50); Eosinophils % (auto) 0.1 %; Hematocrit (blood only) 47.7 % (37.0-47.0); Hemoglobin 15.7 g/dl (12.0-16.0); Immature Granulocytes # (auto) 0.12 K/uL (0.01-0.20); Immature Granulocytes % (auto) 1.4 %; Lymphocytes # (auto) 0.73 K/uL (1.20-3.40); Lymphocytes % (auto) 8.8 %; Mean Corpuscular Hemoglobin 32.5 pg (25.0-34.0); Mean Corpuscular Hgb Conc 32.9 g/dL (32.0-36.0); Mean Corpuscular Volume 98.8 fL (80.0-100.0); Mean Platelet Volume 10.7 fL (9.4-12.4); Monocytes # (auto) 0.33 K/uL (0.11-0.59); Neutrophils # (auto) 7.06 K/uL (1.40-6.50); Platelet Count 194 K/uL (130-400); RDW Coefficient of Variation 15.8 % (11.5-14.5); RDW Standard Deviation 57.6 fL (36.4-46.3); Red Blood Count 4.83 M/uL (4.20-5.40); White Blood Count 8.31 K/ul (4.8-10.8)
[2023-02-16] MEDS ORDERED: MoRPHine SULFATE 4 MG/ML 1 ML CARP\\VIAL IV STA (11:57)
[2023-02-16] MEDS ORDERED: ASPIRIN CHEW 324 MG PO STA (11:57)
[2023-02-16 12:02] LABS: Alanine Aminotransferase 7 U/L (7-52); Albumin Globulin Ratio 1.9 (0.9-2); Albumin Level 4.1 gm/dl (3.4-5.0); Alkaline Phosphatase 94 U/L (34-104); Anion Gap 8 (3-11); Aspartate Aminotransferase 10 U/L (13-39); BUN Creatinine Ratio 24.2 (10-20); Bilirubin,Total 0.9 mg/dl (0.2-1.0); Blood Urea Nitrogen 16 mg/dl (6-23); Calcium 9.1 mg/dl (8.6-10.3); Carbon Dioxide 29 mmol/L (21-32); Chloride 104 mmol/L (98-107); Est GFR (African American) 98.1 ml/min; Est GFR (Non-African American) 84.6 ml/min; Globulin 2.2 gm/dl (2.5-4.0); Glucose 88 mg/dl (70-99(Fasting)); Potassium 3.3 mmol/L (3.5-5.1); Sodium 141 mmol/L (136-145); Total Protein 6.3 gm/dl (6.0-8.3)
--- NOTE | 2023-02-16 12:03 | Emergency Department Note ---
Impression & Plan Chest pain, Carbon monoxide poisoning, Chronic back pain ED Provider Note NAME: REGGIE POWERS AGE: 77 SEX: F : 1945 ARRIVES VIA: Walk-In INFORMANT: Patient, ED PROVIDER(S): Darnell Baugh DO CHIEF COMPLAINT: Chest pain HPI: The patient is a 77-year-old female who presented to the emergency department for an evaluation of chest pain and back pain. The patient is a history of chronic back pain because of previous surgery but she also has chest pain today. She has a history of coronary artery disease. She has been using her nitroglycerin with only minimal relief of her symptoms. She states that over the last few weeks she has been having to use her nitroglycerin more often. She is using it at rest now. She describes lower extremity swelling. She denies having any cough or shortness of breath at this time. She has not been seen by her family doctor. She came to the emergency department with family member for further evaluation of her chest pain. ROS: See above HPI for pertinent positives & negatives. A total of 10 systems reviewed and were otherwise negative. PAST MEDICAL HISTORY: See Below PAST SURGICAL HISTORY: See Below FAMILY HISTORY: See Below SOCIAL HISTORY: See Below HOME MEDICATIONS: See Below ALLERGIES: See Below VITALS: See Below PHYSICAL EXAMINATION: GENERAL: The patient is awake and alert. She appears uncomfortable. EYES: The conjunctivae are clear. The pupils are round and reactive. EARS, NOSE, MOUTH AND THROAT: The nose is without any evidence of any deformity. NECK: The neck is nontender and supple. RESPIRATORY: Normal respiratory effort is noted there is no evidence of wheezing rhonchi or rales CARDIOVASCULAR: Regular rate and rhythm noted there no murmurs rubs or gallops normal S1 normal S2. GASTROINTESTINAL: The abdomen is soft. Abdomen is nontender. MUSCULOSKELETAL/EXTREMITIES: There is no evidence of gross deformity full range of motion is noted in the hips and shoulders. SKIN: Pedal edema was noted bilaterally. NEUROLOGIC: Patient is awake alert and oriented x3 MEDICAL DECISION MAKING: The patient is a 77-year-old female who presented to the emergency department for back pain and chest pain. The patient had a strong odor of heating oil upon arrival to the emergency department. She was having chest pain. It sounds like she has been experiencing chest pain over the course the last few weeks. She normally does not have to use nitroglycerin very often but she started using it more frequently. The patient was treated with pain medication in the emergency department. She was also given aspirin. I discussed the patient's laboratory and radiographic studies with her. Because of the heating oil smell department oxide level is obtained. This appears to be elevated. This could explain with the patient's been having angina. I discussed the patient's laboratory and radiographic studies with her. She was placed on a nonrebreather mask. I discussed patient's condition with the on-call [facility]. They have agreed to evaluate the patient in the emergency department for further management and disposition. Triage Nursing notes reviewed. Prior medical records reviewed Vital Signs: reviewed and remarkable for no significant abnormalities Differential diagnosis: Cardiac ischemia, aortic dissection, pulmonary embolism, pneumothorax, pneum onia, pericarditis, myocarditis, esophageal rupture, GERD, cholecystitis, pancreatitis, musculoskeletal, as well as other pathologies. ER treatment provided: See below Diagnostics interpreted by me: ECG: EKG was obtained in the emergency department. My interpretation is normal sinus rhythm at 65 bpm. Low voltage was noted throughout. T wave flattening was noted. There is no acute ST segment elevations noted. This was compared to a tracing from February 03, 2023. No changes were noted. Cardiac Monitoring: An order was placed for continuous cardiac monitoring. The monitor shows a rate of 61 bpm with sinus rhythm. Laboratory studies: As stated above and show below. Imaging studies: See below. Radiographic imaging was reviewed by myself Consultation(s): I discussed this case with Lary who is on-call for the [facility]. Past Med/Surg History Medical History Atrial fibrillation Depression Encounter for pre-operative examination Fracture, tibia, with fibula Gastric ulcer Gastritis "Getting under control" GERD (gastroesophageal reflux disease) Hiatal hernia History of blood transfusion Pt reports post-op after hip surgery and lumbar surgery History of syncope Previously followed with cardiology, per Dr Lockhart ([facility]), "syncope in the setting of polypharmacy for severe low back pain." Last seen by cardio 11/2018, to follow up PRN per cardio. Migraine MVP (mitral valve prolapse) Not noted on 03/2016 echo (Mild MR was present) Opiate dependence Pancreatitis Approximately 2018 Postlaminectomy syndrome of lumbosacral region Postlaminectomy syndrome of thoracic region Recurrent UTI Surgical History H/O spinal fusion Extensive [id number] (x2 lumbar fusions) History of anesthesia reaction "severe hypotension" per patient following second back surgery. ([facility] 2017). Review of records shows documentation from anesthesia that hypotension was treated in PACU, BP in post-anesthetic evaluation 92/51. Subsequent intrathecal pain pump (03/19/20): Grade view 1, MAC#3, ETT 6.5 at [facility] without issue noted per post-op anesthesia progress note/discharge summary. History of appendectomy History of cardiac cath Approximately 1994 > no stents History of cataract surgery R/L History of cholecystectomy History of colonoscopy History of dilatation and curettage History of esophagogastroduodenoscopy (EGD) History of hip surgery Right hip History of open reduction and internal fixation (ORIF) procedure Left hip S/P hardware removal Left hip x2 S/P CECILIA-BSO Family History Mother Family history of diabetes mellitus Grandmother (Maternal) Family history of diabetes mellitus Grandmother (Paternal) Family history of diabetes mellitus Other No family history of adverse response to anesthesia Social History Smoking Status: Current every day smoker Tobacco Type: Cigarettes packs per day: 0.5; Cigarettes Per Day: 10; Second Hand Exposure: Yes; Do You Dip or Chew Tobacco: No; Hx Alcohol Use: No Hx Substance Use: No Preferred Language: Tajik Communication Ability: Effective Visual Impairment: No Limitations Hearing Ability: Normal Mgmt Analyst Required: No Beliefs That Will Affect Care: None marital status: Current Living Situation: Spouse Current Living Situation Comment: w/ current occupational status: retired Feels Safe at Home: Yes Assistive Devices: Walker Allergies Allergies Allergy/AdvReac Type Severity Reaction Status Date / Time chlorhexidine Allergy Mild Rash Verified 02/10/23 11:11 fluconazole [From Diflucan] AdvReac Severe Diarrhea Verified 02/10/23 11:11 (with oral) hydrochlorothiazide AdvReac Intermediate Pancreatiti Verified 02/10/23 11:11 s ondansetron [From Zofran] AdvReac Intermediate Headaches Verified 02/10/23 11:11 Home Meds Home Medications Medication Instructions Recorded Confirmed multivitamin 1 tab PO QAM 02/05/20 01/31/23 omeprazole 20 mg tablet,delayed 20 mg PO QPM 01/20/22 01/31/23 release rizatriptan 10 mg tablet 10 mg PO UD PRN Migraine Headache 01/20/22 01/31/23 trazodone 100 mg tablet 200 mg PO HS 01/20/22 01/31/23 hydrocodone 10 mg-acetaminophen 1 tab PO Q6 PRN Pain 04/22/22 01/31/23 325 mg tablet promethazine 12.5 mg tablet 12.5 mg PO Q6H PRN Nausea 06/08/22 01/31/23 Hydromorphone Pain Pump 0 mg INJ DIRECTED 01/31/23 01/31/23 cgzgpuoeyw-rqsrwmhvgjzsx-zxqslmpr 1 tab PO TID PRN Migraine Headache 01/31/23 01/31/23 50 mg-325 mg-40 mg tablet calcium carbonate 600 mg-vitamin 1 tab PO DAILY 01/31/23 01/31/23 D3 10 mcg (400 unit) tablet (Calcium 600 + D(3)) furosemide 20 mg tablet (Lasix) 20 mg PO 5XWK 01/31/23 01/31/23 metoprolol succinate 25 mg 25 mg PO QAM 01/31/23 01/31/23 tablet,extended release 24 hr spironolactone 25 mg tablet 25 mg PO 3XWK 01/31/23 01/31/23 buspirone 5 mg tablet 5 mg PO BID 02/10/23 02/10/23 Previous Rx's Medication Instructions Recorded atorvastatin 10 mg tablet 10 mg PO QAM #30 tabs 11/10/22 isosorbide mononitrate 30 mg 30 mg PO QAM #30 tabs 11/10/22 tablet,extended release 24 hr pantoprazole 40 mg tablet,delayed 40 mg PO DAILY #10 tabs 02/05/23 release (Protonix) warfarin 5 mg tablet 5 mg PO DAILY #2 tabs 02/05/23 Results & Data (ED) Vital Signs Vital Signs - 24 hr 02/16/23 10:42 02/16/23 11:58 02/16/23 11:58 Temperature 36.0 C L Temperature Source Temporal Artery Scan Pulse Rate 64 53 L Pulse Rate [Apical] Pulse Rhythm Regular Pulse Strength Normal Respiratory Rate 20 Respiratory Effort / Characteristics Non-Labored Spontaneous Respiratory Depth Normal Respiratory Pattern Regular Blood Pressure 139/80 Blood Pressure [Left Arm] Blood Pressure Mean 99 Blood Pressure Mean [Left Arm] Blood Pressure Position Sitting Pulse Oximetry 94 92 Oxygen Delivery Method Room Air Room Air Room Air Oxygen Flow Rate Sepsis Recent Fever Within 48 Hours No Sepsis New/Unexplained Change in Mental Status No Sepsis Action Taken by Nursing No Action Required 02/16/23 11:59 02/16/23 11:59 02/16/23 12:09 Temperature Temperature Source Pulse Rate 66 Pulse Rate [Apical] 53 L Pulse Rhythm Pulse Strength Respiratory Rate 23 Respiratory Effort / Characteristics Respiratory Depth Respiratory Pattern Blood Pressure Blood Pressure [Left Arm] 137/85 Blood Pressure Mean Blood Pressure Mean [Left Arm] 102 Blood Pressure Position Pulse Oximetry 92 92 Oxygen Delivery Method Room Air Room Air Oxygen Flow Rate Sepsis Recent Fever Within 48 Hours Sepsis New/Unexplained Change in Mental Status Sepsis Action Taken by Nursing 02/16/23 13:00 02/16/23 14:47 Temperature Temperature Source Pulse Rate Pulse Rate [Apical] 56 L 61 Pulse Rhythm Pulse Strength Respiratory Rate 18 18 Respiratory Effort / Characteristics Respiratory Depth Respiratory Pattern Blood Pressure Blood Pressure [Left Arm] 131/71 139/86 Blood Pressure Mean Blood Pressure Mean [Left Arm] 91 103 Blood Pressure Position Pulse Oximetry 95 99 Oxygen Delivery Method Room Air Non-rebreather Oxygen Flow Rate 10 Sepsis Recent Fever Within 48 Hours Sepsis New/Unexplained Change in Mental Status Sepsis Action Taken by Retirement Medications Current Medication List: was personally reviewed by me Laboratory Data Attestation: I reviewed the patient's lab results. 02/16/23 11:27 02/16/23 11:27 Lab Results 02/16/23 02/16/23 02/16/23 Range/Units 11:27 11:27 11:27 WBC 8.31 (4.8-10.8) K/ul RBC 4.83 (4.20-5.40) M/uL Hgb 15.7 (12.0-16.0) g/dl Hct 47.7 H (37.0-47.0) % MCV 98.8 (80.0-100.0) fL MCH 32.5 (25.0-34.0) pg MCHC 32.9 (32.0-36.0) g/dL RDW Std Deviation 57.6 H (36.4-46.3) fL RDW Coeff of Oliver 15.8 H (11.5-14.5) % Plt Count 194 (130-400) K/uL MPV 10.7 (9.4-12.4) fL Immature Gran % (Auto) 1.4 % Neut % (Auto) 85.0 % Lymph % (Auto) 8.8 % Lucas % (Auto) 4.0 % Eos % (Auto) 0.1 % Baso % (Auto) 0.7 % Neut # (Auto) 7.06 H (1.40-6.50) K/uL Lymph # (Auto) 0.73 L (1.20-3.40) K/uL Lucas # (Auto) 0.33 (0.11-0.59) K/uL Eos # (Auto) 0.01 (0.00-0.50) K/uL Baso # (Auto) 0.06 (0.00-0.20) K/uL Immature Gran # (Auto) 0.12 (0.01-0.20) K/uL PT 24.3 H (9.0-12.0) Seconds INR 2.3 H (0.9-1.1) APTT 44.7 H* (21.0-31.0) Seconds PTT Ratio 1.6 VBG pH (7.36-7.41) VBG pCO2 (38-50) mmHg VBG pO2 mmHg VBG HCO3 mmol/L VBG O2 Saturation % VBG Base Excess mEq/L Carboxyhemoglobin % THgb Sodium 141 (136-145) mmol/L Potassium 3.3 L (3.5-5.1) mmol/L Chloride 104 (98-107) mmol/L Carbon Dioxide 29 (21-32) mmol/L Anion Gap 8 (3-11) BUN 16 (6-23) mg/dl Creatinine 0.66 (0.6-1.2) mg/dl Est Cr Clr Drug Dosing Not Reportable Est GFR ( Amer) 98.1 ml/min Est GFR (Non-Af Amer) 84.6 ml/min BUN/Creatinine Ratio 24.2 H (10-20) Glucose 88 (70-99(Fasting)) mg/dl Calcium 9.1 (8.6-10.3) mg/dl Magnesium 2.1 (1.7-2.4) mg/dl Total Bilirubin 0.9 (0.2-1.0) mg/dl AST 10 L (13-39) U/L ALT 7 (7-52) U/L Alkaline Phosphatase 94 (34-104) U/L Troponin I High Sens 6.2 (0-14) pg/ml Total Protein 6.3 (6.0-8.3) gm/dl Albumin 4.1 (3.4-5.0) gm/dl Globulin 2.2 L (2.5-4.0) gm/dl Albumin/Globulin Ratio 1.9 (0.9-2) 02/16/23 02/16/23 Range/Units 12:55 12:55 WBC (4.8-10.8) K/ul RBC (4.20-5.40) M/uL Hgb (12.0-16.0) g/dl Hct (37.0-47.0) % MCV (80.0-100.0) fL MCH (25.0-34.0) pg MCHC (32.0-36.0) g/dL RDW Std Deviation (36.4-46.3) fL RDW Coeff of Oliver (11.5-14.5) % Plt Count (130-400) K/uL MPV (9.4-12.4) fL Immature Gran % (Auto) % Neut % (Auto) % Lymph % (Auto) % Lucas % (Auto) % Eos % (Auto) % Baso % (Auto) % Neut # (Auto) (1.40-6.50) K/uL Lymph # (Auto) (1.20-3.40) K/uL Lucas # (Auto) (0.11-0.59) K/uL Eos # (Auto) (0.00-0.50) K/uL Baso # (Auto) (0.00-0.20) K/uL Immature Gran # (Auto) (0.01-0.20) K/uL PT (9.0-12.0) Seconds INR (0.9-1.1) APTT (21.0-31.0) Seconds PTT Ratio VBG pH 7.34 L (7.36-7.41) VBG pCO2 53 H (38-50) mmHg VBG pO2 57 mmHg VBG HCO3 29 mmol/L VBG O2 Saturation 90.1 % VBG Base Excess 1.8 mEq/L Carboxyhemoglobin 12.9 H* % THgb Sodium (136-145) mmol/L Potassium (3.5-5.1) mmol/L Chloride (98-107) mmol/L Carbon Dioxide (21-32) mmol/L Anion Gap (3-11) BUN (6-23) mg/dl Creatinine (0.6-1.2) mg/dl Est Cr Clr Drug Dosing Est GFR ( Amer) ml/min Est GFR (Non-Af Amer) ml/min BUN/Creatinine Ratio (10-20) Glucose (70-99(Fasting)) mg/dl Calcium (8.6-10.3) mg/dl Magnesium (1.7-2.4) mg/dl Total Bilirubin (0.2-1.0) mg/dl AST (13-39) U/L ALT (7-52) U/L Alkaline Phosphatase (34-104) U/L Troponin I High Sens (0-14) pg/ml Total Protein (6.0-8.3) gm/dl Albumin (3.4-5.0) gm/dl Globulin (2.5-4.0) gm/dl Albumin/Globulin Ratio (0.9-2) Administered Medications Discontinued Medications Aspirin (Aspirin Chew 324 Mg) 324 mg PO NOW STA Stop: 02/16/23 11:58 Last Admin: 02/16/23 12:00 Dose: 324 mg Documented By: BASILIA Morphine Sulfate (Morphine Sulfate 4 Mg/Ml 1 Ml Carp\\Vial) 4 mg IV NOW STA Stop: 02/16/23 11:58 Last Admin: 02/16/23 12:00 Dose: 4 mg Documented By: BASILIA Imaging Data Attestation: I personally reviewed and interpreted this imaging study as follows: My Impression: 1 view chest x-ray was obtained in the emergency department. My interpretation is no free air or definite infiltrate, final report below. Radiologist's Impression: Chest X-Ray 02/16/23 10:44 XR chest 1V not portable CLINICAL HISTORY: Chest pain, nonspecific COMPARISON STUDY: Chest radiograph February 03, 2023. FINDINGS: Thoracolumbar spine fusion is partially imaged. There is no pneumothorax. Trace left pleural effusion has significantly decreased in size since prior exam. Pulmonary edema has improved. There is pulmonary vascular congestion. Cardiomegaly is unchanged. No consolidation is identified to suggest pneumonia. There are multiple subacute to chronic right rib fractures. IMPRESSION: 1. Cardiomegaly with interval improvement in pulmonary edema. Decrease in size of a trace left pleural effusion. 2. No consolidation to suggest pneumonia. ACT 112: Negative or not required by law. Electronically signed by: Nitish Singleton M.D. 02/16/2023 12:01 PM Discharge Plan Visit Data Chief Complaint: Cardiac Assessment Stated Complaint: CHEST PAIN,SOB,VOMITING,HX OF AFIB ED Provider: Darnell Baugh Discharge Problem: Chest pain, Carbon monoxide poisoning, Chronic back pain Patient Disposition: Being Evaluated by Hospitalist Forms Stand Alone Forms: [facility] Emergency Department, Important Visit Information Prescriptions Prescriptions: No Action hydrocodone-acetaminophen 10-325 mg tablet 1 tab PO Q6 PRN (Reason: Pain) promethazine 12.5 mg tablet 12.5 mg PO Q6H PRN (Reason: Nausea) buspirone 5 mg tablet 5 mg PO BID multivitamin Tablet 1 tab PO QAM trazodone 100 mg Tablet 200 mg PO HS omeprazole 20 mg Tablet,Delayed Release (Dr/Ec) 20 mg PO QPM rizatriptan 10 mg Tablet 10 mg PO UD PRN (Reason: Migraine Headache) Rx Instructions: take 1 tab at onset of headache; if no relief may repeat 1 tab after at least 2 hrs; max = 3 tabs/24 hr atorvastatin 10 mg Tablet 10 mg PO QAM Qty: 30 0RF isosorbide mononitrate 30 mg Tablet Extended Release 24 Hr 30 mg PO QAM Qty: 30 0RF ffhddjscbg-ouzhrkqkrdupn-yjsw 50-325-40 mg Tablet 1 tab PO TID PRN (Reason: Migraine Headache) furosemide [Lasix] 20 mg Tablet 20 mg PO 5XWK Rx Instructions: Wednesday through Wednesday calcium carbonate-vitamin D3 [Calcium 600 + D(3)] 600 mg-10 mcg (400 unit) Tablet 1 tab PO DAILY Hydromorphone Pain Pump 0 mg INJ DIRECTED metoprolol succinate 25 mg tablet extended release 24 hr 25 mg PO QAM spironolactone 25 mg tablet 25 mg PO 3XWK Rx Instructions: Wednesday, Wednesday, Wednesday warfarin 5 mg tablet 5 mg PO DAILY Qty: 2 0RF Rx Instructions: starting tomorrow. pantoprazole [Protonix] 40 mg tablet,delayed release (DR/EC) 40 mg PO DAILY Qty: 10 0RF Referrals Referrals: Casey Rodgers [Primary Care Provider] -
--- NOTE | 2023-02-16 12:03 | XRay Report ---
XR chest 1V not portable CLINICAL HISTORY: Chest pain, nonspecific COMPARISON STUDY: Chest radiograph February 03, 2023. FINDINGS: Thoracolumbar spine fusion is partially imaged. There is no pneumothorax. Trace left pleura l effusion has significantly decreased in size since prior exam. Pulmonary edema has improved. There is pulmonary vascular congestion. Cardiomegaly is unchanged. No consolidation is identified to sugges t pneumonia. There are multiple subacute to chronic right rib fractures. IMPRESSION: 1. Cardiomegaly with interval improvement in pulmonary edema. Decrease in size of a trace left pleura l effusion. 2. No consolidation to suggest pneumonia. ACT 112: Negative or not required by law. Electronically signed by: Nitish Singleton M.D. 02/16/2023 12:01 PM
[2023-02-16 12:09] LABS: Troponin I High Sensitivity 6.2 pg/ml (0-14)
[2023-02-16 12:30] LABS: INR 2.3 (0.9-1.1); Partial Thromboplastin Ratio 1.6; Prothrombin Time 24.3 Seconds (9.0-12.0)
[2023-02-16 13:09] LABS: Partial Thromboplastin Time 44.7 Seconds (21.0-31.0)
[2023-02-16 13:15] LABS: Base Excess VBG 1.8 mEq/L; HCO3 VBG 29 mmol/L; Oxygen Saturation VBG 90.1 %; PCO2 VBG 53 mmHg (38-50); PO2 VBG 57 mmHg; pH VBG 7.34 (7.36-7.41)
[2023-02-16] MEDS ORDERED: POLYETHYLENE (MIRALAX) 17 GM PACK PO PRN (14:14)
[2023-02-16] MEDS ORDERED: MAGNESIUM HYDROXIDE SUSP 30 ML UDC PO PRN (14:14)
[2023-02-16] MEDS ORDERED: ONDANSETRON INJ 2 MG/ML 2 ML VIAL IV PRN (14:14)
[2023-02-16] MEDS ORDERED: ALUMINUM/MAGNESIUM SUSP 30 ML UDC PO PRN (14:14)
--- NOTE | 2023-02-16 14:30 | History & Physical Report ---
Date of Service February 16, 2023 Assessment & Plan (1) Carbon monoxide poisoning: (2) Chest pain: (3) Atrial fibrillation: (4) CAD (coronary artery disease): (5) HTN (hypertension): (6) HLD (hyperlipidemia): Plan Ms. Campos is a 77 year old female that presented to the [facility] ED with chest and back discomfort. She reports that substernal chest discomfort without radiation that started a few days ago, but has been most bothersome this AM starting at 0600. She has Nitro PRN at home and took her last one this morning. When the pain persisted, she called 911. No SOB or orthopnea. She has a known history of previous back surgeries and has a hydromorphone pain pump. She does not have significant CAD; has underwent a heart catheterization in 1994 without intervention. Patient reports that she does have oil for the main heat source in the home that has been used over the past few days. No leukocytosis, VBG revealed carboxyhemoglobin 12.9% . Lactate pending. Initial troponin 6.2. Patient is a known smoker half pack per day. No ECG changes indicating STEMI. Patient was placed on 100% nonrebreather and we will check repeat carboxyhemoglobin level. Patient was recently admitted to [facility] 01/31/23-02/05/23 for GIB. Her last back surgery was 2014 at [facility]; decompression and fusion of lumbar region. Her last ECHO was 02/02/23 with normal LV wall motion, mild LVH, EF 60-65%, moderate TR and mild pHTN. Suspect chest discomfort related to carboxyhemoglobin exposure. Will treat with 100% NRB and trend troponin. Patient complaint with medications; will order Lasix 40 mg IV once in addition to daily regimen for increased LE edema and JVD; check BNP and consider cardiology involvement if no improvement or increase in trop. Carbon oxide poisoning: Carboxyhemoglobin level 12.6; smoker normal level less than 9% In patients with the following indications, it is suggested to treat with hyperbaric oxygen therapy (HBO) in addition to normobaric 100 percent oxygen -COHb level >25 percent -Loss of consciousness -Severe metabolic acidosis (pH <7.25) -Evidence of end-organ ischemia (eg, ECG changes, elevated cardiac biomarkers, respiratory failure, focal neurologic deficit or altered mental status Placed on nonrebreather in ED; saturating well Recheck carboxyhemoglobin level and check lactic acid level Chest pain: Likely secondary to elevated carboxyhemoglobin level. Initial troponin 6.2; will trend x1. Do not suspect ACS or other ischemic demand Follows with [facility] Cardiology ECG historically with mild diffuse nonspecific T-wave abnorms. Previous cardiac catheterization 1994 without intervention Pt reports intermittent chest pain on admission in November; mild Troponin elevation Cardiology discussed having a cardiac cath vs medical management. Pt was hesitant to proceed with invasive procedure unless symptoms worsened. Consider Cardiology consultation if Troponin becomes elevated or no improvement. Atrial fibrillation: Chronic stable Takes Coumadin and Metoprolol; continue Check PT/INR in AM CAD: Chronic stable Follows with [facility] Cardiology ECG historically with mild diffuse nonspecific T-wave abnorms. Previous cardiac catheterization 1994 without intervention Pt reports intermittent chest pain on admission in November; mild Troponin elevation Cardiology discussed having a cardiac cath vs medical management. Pt was hesitant to proceed with invasive procedure unless symptoms worsened. Consider Cardiology consultation if Troponin becomes elevated or no improvement. Takes Lasix + Spironolactone; continue Pleural effusion: CXR: notes improvement of pleural effusion check BNP to coorelate with preserved EF on recent echo (+) JVD on examination HTN: Chronic stable Takes Imdur; continue HLD: Chronic stable Takes atorvastatin; continue Chronic Back Pain: Back stimulator in place with hydromorphone pump Continue home pain regimen Ordered one time dose of IV Dilaudid 0.25 IV PT/OT consults, uses walker at baseline Tobacco Use: Smokes 1/2 ppd since she was a teenager, ~60 pack year hx Cessation encouraged, pt denies the need for a nicotine patch. Migraine: Chronic stable takes rixatriptan; continue PRN Insomnia: chronic stable Takes trazadone; continue Depression: Chronic stable Takes BuSpar; continue Disposition: PCP: Dr. Rodgers CODE STATUS: Full code VTE prophylaxis: On Coumadin I spent a total of 87 minutes coordinating, documenting, and providing care for this patient excluding time spent in the performance of separately billed services. All of the aforementioned completed while collaborating with the assigned attending physician for a full treatment plan. Please see their addendum for further details. History of Present Illness Chief Complaint: chest pain Primary Care Provider: Casey Rodgers Ms. Campos is a 77 year old male that presented to the [facility] ED with chest and back discomfort. She reports that substernal chest discomfort without radiation that started a few days ago, but has been most bothersome this AM starting at 0600. She has Nitro PRN at home and took her last one this morning. When the pain persisted, she called 911. No SOB or orthopnea. She has a known history of previous back surgeries and has a hydromorphone pain pump. She does not have significant CAD; has underwent a heart catheterization in 1994 without intervention. Patient reports that she does have oil for the main heat source in the home that has been used over the past few days. No leukocytosis, VBG revealed carboxyhemoglobin 12.9% . Lactate pending. Initial troponin 6.2. Patient is a known smoker half pack per day. No ECG changes indicating STEMI. Patient was placed on 100% nonrebreather and we will check repeat carboxyhemoglobin level. Patient was recently admitted to [facility] 01/31/23-02/05/23 for GIB. Her last back surgery was 2014 at [facility]; decompression and fusion of lumbar region. Her last ECHO was 02/02/23 with normal LV wall motion, mild LVH, EF 60-65%, moderate TR and mild pHTN. In patients with the following indications, it is suggested to treat with hyperbaric oxygen therapy (HBO) in addition to normobaric 100 percent oxygen -COHb level >25 percent -COHb level >15 percent in patient -Loss of consciousness -Severe metabolic acidosis (pH <7.25) -Evidence of end-organ ischemia (eg, ECG changes, elevated cardiac biomarkers, respiratory failure, focal neurologic deficit or altered mental status Additional past medical history includes CAD, A-fib, back surgeries, depression, mitral valve prolapse. Patient denies headache, dizziness, shortness of breath, palpitations, abdominal pain or tenderness, visual or auditory changes, recent falls or trauma. Suspect chest discomfort related to carboxyhemoglobin exposure. Will treat with NRB and trend troponin. Patient complaint with medications; will order Lasix 40 mg IV once in addition to daily regimen for increased LE edema; check BMP and consider cardiology involvement if no improvement or increase in trop. Patient will be admitted for further evaluation and management. Please see A/P for further details. Allergies Allergy/AdvReac Type Severity Reaction Status Date / Time chlorhexidine Allergy Mild Rash Verified 02/10/23 11:11 fluconazole [From Diflucan] AdvReac Severe Diarrhea Verified 02/10/23 11:11 (with oral) hydrochlorothiazide AdvReac Intermediate Pancreatiti Verified 02/10/23 11:11 s ondansetron [From Zofran] AdvReac Intermediate Headaches Verified 02/10/23 11:11 Home Medications Medication Instructions Recorded Confirmed Type multivitamin 1 tab PO QAM 02/05/20 02/16/23 History omeprazole 20 mg tablet,delayed 20 mg PO QPM 01/20/22 02/16/23 History release rizatriptan 10 mg tablet 10 mg PO UD PRN Migraine Headache 01/20/22 02/16/23 History trazodone 100 mg tablet 200 mg PO HS 01/20/22 02/16/23 History hydrocodone 10 mg-acetaminophen 1 tab PO Q6 PRN Pain 04/22/22 02/16/23 History 325 mg tablet promethazine 12.5 mg tablet 12.5 mg PO Q6H PRN Nausea 06/08/22 02/16/23 History atorvastatin 10 mg tablet 10 mg PO QAM #30 tabs 11/10/22 02/16/23 Rx isosorbide mononitrate 30 mg 30 mg PO QAM #30 tabs 11/10/22 02/16/23 Rx tablet,extended release 24 hr Hydromorphone Pain Pump 0 mg INJ DIRECTED 01/31/23 02/16/23 History hugzgaysvf-kzcvaesftyiai-qvlclwod 1 tab PO TID PRN Migraine Headache 01/31/23 02/16/23 History 50 mg-325 mg-40 mg tablet calcium carbonate 600 mg-vitamin 1 tab PO DAILY 01/31/23 02/16/23 History D3 10 mcg (400 unit) tablet (Calcium 600 + D(3)) furosemide 20 mg tablet (Lasix) 20 mg PO [id number] 01/31/23 02/16/23 History metoprolol succinate 25 mg 25 mg PO QAM 01/31/23 02/16/23 History tablet,extended release 24 hr spironolactone 25 mg tablet 25 mg PO 3XWK 01/31/23 02/16/23 History pantoprazole 40 mg tablet,delayed 40 mg PO DAILY #10 tabs 02/05/23 02/16/23 Rx release (Protonix) warfarin 5 mg tablet 5 mg PO DAILY #2 tabs 02/05/23 02/16/23 Rx buspirone 5 mg tablet 5 mg PO BID 02/10/23 02/16/23 History Past Med/Surg History Medical History (Updated 02/16/23 @ 15:12 by GARRETT Prakash) Atrial fibrillation CAD (coronary artery disease) Depression Encounter for pre-operative examination Fracture, tibia, with fibula Gastric ulcer Gastritis "Getting under control" GERD (gastroesophageal reflux disease) Hiatal hernia History of blood transfusion Pt reports post-op after hip surgery and lumbar surgery History of syncope Previously followed with cardiology, per Dr Lockhart ([facility]), "syncope in the setting of polypharmacy for severe low back pain." Last seen by cardio 11/2018, to follow up PRN per cardio. HLD (hyperlipidemia) HTN (hypertension) Migraine MVP (mitral valve prolapse) Not noted on 03/2016 echo (Mild MR was present) Opiate dependence Pancreatitis Approximately 2017 Postlaminectomy syndrome of lumbosacral region Postlaminectomy syndrome of thoracic region Recurrent UTI Surgical History H/O spinal fusion Extensive [id number] (x2 lumbar fusions) History of anesthesia reaction "severe hypotension" per patient following second back surgery. ([facility] 2017). Review of records shows documentation from anesthesia that hypotension was treated in PACU, BP in post-anesthetic evaluation 92/51. Subsequent intrathecal pain pump (03/19/20): Grade view 1, MAC#3, ETT 6.5 at [facility] without issue noted per post-op anesthesia progress note/discharge summary. History of appendectomy History of cardiac cath Approximately 1994 > no stents History of cataract surgery R/L History of cholecystectomy History of colonoscopy History of dilatation and curettage History of esophagogastroduodenoscopy (EGD) History of hip surgery Right hip History of open reduction and internal fixation (ORIF) procedure Left hip S/P hardware removal Left hip x2 S/P CECILIA-BSO Family History Mother Family history of diabetes mellitus Grandmother (Maternal) Family history of diabetes mellitus Grandmother (Paternal) Family history of diabetes mellitus Other No family history of adverse response to anesthesia Social History Smoking Status: Current every day smoker Tobacco Type: Cigarettes packs per day: 0.5; Cigarettes Per Day: 10; Second Hand Exposure: Yes; Do You Dip or Chew Tobacco: No; Hx Alcohol Use: No Hx Substance Use: No Preferred Language: Telugu Communication Ability: Effective Visual Impairment: No Limitations Hearing Ability: Normal Lathe Mechanic Required: No Beliefs That Will Affect Care: None marital status: Current Living Situation: Spouse Current Living Situation Comment: w/ current occupational status: retired Feels Safe at Home: Yes Assistive Devices: Walker Review of Systems Review of Systems: Neuro: (-) Falls, trauma, slurred speech HEENT: (-) TAYLOR, dizziness, dysphagia, visual or auditory changes CV: (-) CP, palpitations, swelling Resp: (-) SOB GI: (-) appetite changes, N/V/D, bowel changes : (-) urinary changes Skin: (-) rashes Psych: (-) anxiety, depression Physical Exam Physical Exam: Neuro: AAOx4, PERRLA, no aphagia, memory changes, CNII-XII grossly intact HEENT: head normocephalic, moist mucus membranes CV: S1/S2, (-) M/G/R, (-) edema, cap refill < 3 seconds (+) JVD Resp: Lungs crackles left lung blum. On 100% NRB GI: Abdomen S/NT/ND, Ax4 bowel sounds, (-) CVA tenderness Musculoskeletal: 5/5 B/L UE strength, 5/5 B/L LE strength. No gait disturbance Skin: (-) rashes , (-) erythema. Psych: euthymic mood Results & Data Results & Data Vital Signs (Past 12 Hours) Vital Signs Temp Pulse Pulse Resp BP BP Pulse Ox 02/16/23 13:00 56 L 18 131/71 95 02/16/23 12:09 66 02/16/23 11:59 92 02/16/23 11:59 53 L 23 137/85 92 02/16/23 11:58 53 L 92 02/16/23 11:58 02/16/23 10:42 36.0 C L 64 20 139/80 94 O2 Del Method 02/16/23 13:00 Room Air 02/16/23 12:09 10/10/23 11:59 Room Air 02/16/23 11:59 Room Air 02/16/23 11:58 Room Air 02/16/23 11:58 Room Air 02/16/23 10:42 Room Air Laboratory Results Short CBC 02/16/23 Range/Units 11:27 WBC 8.31 (4.8-10.8) K/ul Hgb 15.7 (12.0-16.0) g/dl Hct 47.7 H (37.0-47.0) % Plt Count 194 (130-400) K/uL BMP 02/16/23 11:27 Sodium 141 Potassium 3.3 L Chloride 104 Carbon Dioxide 29 BUN 16 Creatinine 0.66 Glucose 88 Calcium 9.1 Liver Function 02/16/23 Range/Units 11:27 Total Bilirubin 0.9 (0.2-1.0) mg/dl AST 10 L (13-39) U/L ALT 7 (7-52) U/L Alkaline Phosphatase 94 (34-104) U/L Albumin 4.1 (3.4-5.0) gm/dl Diagnostic Findings Chest X-Ray 02/16/23 10:44 XR chest 1V not portable CLINICAL HISTORY: Chest pain, nonspecific COMPARISON STUDY: Chest radiograph February 03, 2023. FINDINGS: Thoracolumbar spine fusion is partially imaged. There is no pneumothorax. Trace left pleural effusion has significantly decreased in size since prior exam. Pulmonary edema has improved. There is pulmonary vascular congestion. Cardiomegaly is unchanged. No consolidation is identified to suggest pneumonia. There are multiple subacute to chronic right rib fractures. IMPRESSION: 1. Cardiomegaly with interval improvement in pulmonary edema. Decrease in size of a trace left pleural effusion. 2. No consolidation to suggest pneumonia. ACT 112: Negative or not required by law. Electronically signed by: Nitish Singleton M.D. 02/16/2023 12:01 PM Code Status & VTE Plan Code Status Full code in the event of cardiac or respiratory arrest VTE Prophylaxis Plan VTE Prophylaxis will be ordered: Yes Supervising Physician Co-Signing Physician Notes Attending addendum: The patient was seen and examined in the emergency room He was brought in with chest pressure, nausea vomiting and headache The chest pressure was relieved with nitro but she ran out of nitro Did not have any diarrhea or any abdominal pain associated with nausea and vomiting, no fever and or chills Has been feeling much better in the emergency room On examination Remains on 100% nonrebreather Communicating normally with minimal headache and no more nausea and or vomiting Chest pressure has resolved Chest-decreased breath sounds bilaterally with minimal crackles at the bases Heart-S1-S2, regular no murmur appreciated Abdomen-soft, nontender bowel sound present Extremities-2+ edema bilaterally 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 Generally weak but no focal neurodeficit Her admission labs, EKG and imaging studies reviewed Notable findings carbon monoxide hemoglobin 12% and low voltage EKG Likely has carbon monoxide poisoning with associated symptoms of chest pressure, headache and nausea, vomiting We will rule out for any ACS and cardiology consult if symptoms persist We will recheck carboxyhemoglobin Agree with assessment and plan as outlined above by Marifer Phipps (1) Carbon monoxide poisoning Encounter type: initial encounter Injury intent: accidental or unintentional Qualified Code(s): T58.91XA - Toxic effect of carbon monoxide from unspecified source, accidental (unintentional), initial encounter (2) Chest pain Chest pain type: unspecified Qualified Code(s): R07.9 - Chest pain, unspecified
[2023-02-16 14:47] LABS: Magnesium 2.1 mg/dl (1.7-2.4)
[2023-02-16] MEDS ORDERED: FUROSEMIDE 40 MG/4 ML VIAL IV ONE (14:55)
[2023-02-16] MEDS ORDERED: HYDROmorphone INJ 0.5 MG/0.5 ML SYR IV STA (15:18)
[2023-02-16 16:04] LABS: Appearance Urine Turbid (Clear); Bacteria Urine Automated 3+ (Negative); Blood Urine 1+ (Negative); Color Urine Dark Yellow; Epithelial Cell Urine Auto >30 /lpf (0-5); Glucose Urine UA Negative (Negative); Ketones Urine Trace (Negative); Leukocyte Esterase Urine Trace (Negative); Nitrite Urine Positive (Negative); Protein Urine 1+ (Negative); RBC Urine Automated 0-4 /hpf (0-4); Specific Gravity Urine 1.036 (1.000-1.030); Urobilinogen Urine Negative (Negative); pH Urine 5.5 (4.5-7.5)
[2023-02-16 16:27] LABS: Bilirubin Urine 1+ (Negative)
[2023-02-16 16:36] LABS: Calcium Oxalate Crystals Urine Present (None Prsent)
[2023-02-16] MEDS: HYDROcodone/ACETAMINOPHEN 10/325 TAB PO PRN (18:43)
[2023-02-16] MEDS: traZODone HCL 100 MG TAB PO SCH (22:59)
[2023-02-16] MEDS: ACETAMINOPHEN 325 MG TAB PO PRN (22:59)
[2023-02-16] MEDS: busPIRone 5 MG TAB PO SCH (22:59)
[2023-02-17 02:04] LABS: INR 2.5 (0.9-1.1); Prothrombin Time 26.2 Seconds (9.0-12.0)
[2023-02-17] MEDS: HYDROcodone/ACETAMINOPHEN 10/325 TAB PO PRN ×4 (04:59→22:40)
[2023-02-17 07:08] LABS: Hemoglobin 14.9 g/dl (12.0-16.0); Mean Corpuscular Hemoglobin 32.8 pg (25.0-34.0); Mean Corpuscular Hgb Conc 32.4 g/dL (32.0-36.0); Mean Corpuscular Volume 101.3 fL (80.0-100.0); Mean Platelet Volume 10.7 fL (9.4-12.4); Platelet Count 181 K/uL (130-400); RDW Coefficient of Variation 15.7 % (11.5-14.5); RDW Standard Deviation 58.4 fL (36.4-46.3); Red Blood Count 4.54 M/uL (4.20-5.40); White Blood Count 10.93 K/ul (4.8-10.8)
[2023-02-17 07:17] LABS: Albumin Level 3.3 gm/dl (3.4-5.0); Bilirubin,Total 0.6 mg/dl (0.2-1.0); Calcium 7.7 mg/dl (8.6-10.3); Potassium 3.2 mmol/L (3.5-5.1)
[2023-02-17 07:23] LABS: Albumin Globulin Ratio 1.8 (0.9-2); BUN Creatinine Ratio 21.9 (10-20); Creatinine Clr Calc Pharmacy 54.7 ml/min; Est GFR (African American) 99.1 ml/min; Est GFR (Non-African American) 85.5 ml/min; Globulin 1.8 gm/dl (2.5-4.0); Total Protein 5.1 gm/dl (6.0-8.3)
--- NOTE | 2023-02-17 07:58 | Cardiology Consultation ---
Date of Consultation February 17, 2023 Assessment & Plan (1) Chest pain: (2) Chronic heart failure with preserved ejection fraction (HFpEF): (3) Valvular heart disease: (4) Bradycardia: (5) Paroxysmal atrial fibrillation: Plan IMPRESSION: Medically complex 77 year old female with valvular heart disease, chronic diastolic CHF, and hx of PAF. Presented to [facility] due to nausea, SOB, and chest pain. Concerns for carbon monoxide poisoning. Cardiac workup thus far including an EKG without acute changes, HS trop normal x3. REcent Echo 01/2023 without acute changes. CXR suggestive of mild volume overload. PLAN: Agree with x1 dose of IV lasix-- vL status appears improved at this time. Will restart home dose Lasix 20 mg 5 days per week and Aldactone 12.5 mg 5 days per week. Patient likely has a degree of coronary disease however current workup without signs of ACS and patient is currently chest pain free- recommend ongoing medical management at this time with ASA and statin. Hx of PAF- anticoagulated on Coumadin. Currently maintaining SB, beta jitendra held. Case discussed with Dr. Lockhart. Supervising Physician Co-Signing Physician Notes Patient seen and examined, chart and laboratory studies reviewed Clinically improved no further chest pain. Possible sedating causes including carbon oxide poisoning. Patient on appropriate medical therapies discussed in detail patient does not wish more aggressive treatment. Urged tobacco cessation History of Present Illness Reason for Consultation: Chest pain Requesting Physician: Carol hospitalist Attending Physician: Shivani Roman DO History of Present Illness 77-year-old female who presented to [facility] emergency department with intermittent chest and back discomfort and nausea. Symptoms not relieved by sublingual nitroglycerin at home. Metabolic acidosis noted, Venous blood gas revealed carboxyhemoglobin of 12.9%, elevated. Placed on nonrebreather 100%. No on 2L NC with saturations 99-100%. High-sensitivity troponins negative x3. Patient appeared mildly volume overloaded and given an additional 40 mg of IV Lasix. (normally maintained on Lasix 20 mg 5 days per week + Aldactone 12.5 mg 5 days per week) Outpatient echo 02/02/23 with normal LV wall motion, mild LVH, EF 60-65%, moderate TR and mild pHTN. Labs: stable renal function. K low at 3.2*, Lactate normal. BNP elevated at 1071, HS trop normal x3. CXR: Cardiomegaly with interval improvement in pulmonary edema. Decrease in size of a trace left pleural effusion. No consolidation to suggest pneumonia. EKG: SB, [address] segment changes. Tele: SR with PACS 45-55 bpm I&O: n/a Weight: 52.2 kg Upon entrance into the room patient resting comfortably in bed. No acute concerns- feeling improved since admission. No return of chest pain. Has some mild NUNN- but comfortable at rest. Has some swelling in the left lower extremtiy which she states is chronic. right leg minimal. No orthopnea or PND. Denies palpitations or lightheadedness. Primary outpatient director of software development: Dr. Lockhart Past medical history: 1. Paroxysmal atrial fibrillation with acute hospitalization March 04, 2022 with rapid response (1st onset). [id number] score of 4 Repeat ER visit May 15, 2022 or with atrial fibrillation with rapid response with spontaneous conversion. 2. Hypertension 3. Mitral insufficiency 4. Chronic tobacco use/chronic obstructive lung disease 5. Chest discomfort prompting nuclear stress test, results equivocal. Patient declined cardiac catheterization and favored medical management, 11/2022 at [facility] 6. Chronic HFpEF Allergies Allergy/AdvReac Type Severity Reaction Status Date / Time chlorhexidine Allergy Mild Rash Verified 02/10/23 11:11 fluconazole [From Diflucan] AdvReac Severe Diarrhea Verified 02/10/23 11:11 (with oral) hydrochlorothiazide AdvReac Intermediate Pancreatiti Verified 02/10/23 11:11 s ondansetron [From Zofran] AdvReac Intermediate Headaches Verified 02/10/23 11:11 Home Medications Medication Instructions Recorded Confirmed Type multivitamin 1 tab PO QAM 02/05/20 02/16/23 History omeprazole 20 mg tablet,delayed 20 mg PO QPM 01/20/22 02/16/23 History release rizatriptan 10 mg tablet 10 mg PO UD PRN Migraine Headache 01/20/22 02/16/23 History trazodone 100 mg tablet 200 mg PO HS 01/20/22 02/16/23 History hydrocodone 10 mg-acetaminophen 1 tab PO Q6 PRN Pain 04/22/22 02/16/23 History 325 mg tablet promethazine 12.5 mg tablet 12.5 mg PO Q6H PRN Nausea 06/08/22 02/16/23 History atorvastatin 10 mg tablet 10 mg PO QAM #30 tabs 11/10/22 02/16/23 Rx isosorbide mononitrate 30 mg 30 mg PO QAM #30 tabs 11/10/22 02/16/23 Rx tablet,extended release 24 hr Hydromorphone Pain Pump 0 mg INJ DIRECTED 01/31/23 02/16/23 History pnmrdeeytt-[id number]-ohmxawkf 1 tab PO TID PRN Migraine Headache 01/31/23 02/16/23 History 50 mg-325 mg-40 mg tablet calcium carbonate 600 mg-vitamin 1 tab PO DAILY 01/31/23 02/16/23 History D3 10 mcg (400 unit) tablet (Calcium 600 + D(3)) furosemide 20 mg tablet (Lasix) 20 mg PO [id number] 01/31/23 02/16/23 History metoprolol succinate 25 mg 25 mg PO QAM 01/31/23 02/16/23 History tablet,extended release 24 hr spironolactone 25 mg tablet 25 mg PO 3XWK 01/31/23 02/16/23 History pantoprazole 40 mg tablet,delayed 40 mg PO DAILY #10 tabs 02/05/23 02/16/23 Rx release (Protonix) warfarin 5 mg tablet 5 mg PO DAILY #2 tabs 02/05/23 02/16/23 Rx buspirone 5 mg tablet 5 mg PO BID 02/10/23 02/16/23 History Patient History Medical History (Updated 02/17/23 @ 10:43 by GARRETT Wilburn) Atrial fibrillation CAD (coronary artery disease) Depression Encounter for pre-operative examination Fracture, tibia, with fibula Gastric ulcer Gastritis "Getting under control" GERD (gastroesophageal reflux disease) Hiatal hernia History of blood transfusion Pt reports post-op after hip surgery and lumbar surgery History of syncope Previously followed with cardiology, per Dr Lockhart ([facility]), "syncope in the setting of polypharmacy for severe low back pain." Last seen by cardio 11/2018 , to follow up PRN per cardio. HLD (hyperlipidemia) HTN (hypertension) Migraine MVP (mitral valve prolapse) Not noted on 03/2016 echo (Mild MR was present) Opiate dependence Pancreatitis Approximately 2018 Postlaminectomy syndrome of lumbosacral region Postlaminectomy syndrome of thoracic region Recurrent UTI Surgical History H/O spinal fusion Extensive [id number] (x2 lumbar fusions) History of anesthesia reaction "severe hypotension" per patient following second back surgery. ([facility] 2017). Review of records shows documentation from anesthesia that hypotension was treated in PACU, BP in post-anesthetic evaluation 92/51. Subsequent intrathecal pain pump (03/19/20): Grade view 1, MAC#3, ETT 6.5 at [facility] without issue noted per post-op anesthesia progress note/discharge summary. History of appendectomy History of cardiac cath Approximately 1994 > no stents History of cataract surgery R/L History of cholecystectomy History of colonoscopy History of dilatation and curettage History of esophagogastroduodenoscopy (EGD) History of hip surgery Right hip History of open reduction and internal fixation (ORIF) procedure Left hip S/P hardware removal Left hip x2 S/P CECILIA-BSO Family History Mother Family history of diabetes mellitus Grandmother (Maternal) Family history of diabetes mellitus Grandmother (Paternal) Family history of diabetes mellitus Other No family history of adverse response to anesthesia Social History Smoking Status: Current every day smoker Tobacco Type: Cigarettes packs per day: 0.5; Cigarettes Per Day: 10; Second Hand Exposure: No; Do You Dip or Chew Tobacco: No; Tobacco Cessation Education Requested by Patient: No Hx Alcohol Use: No Hx Substance Use: No Preferred Language: Mexican Communication Ability: Effective Visual Impairment: No Limitations Hearing Ability: Normal Equity Trader Required: No Beliefs That Will Affect Care: None marital status: Current Living Situation: Spouse Current Living Situation Comment: w/ current occupational status: retired Other Information That Helps Us Care for You: No Feels Safe at Home: Yes Safety Concerns: Feels Safe At This Time Assistive Devices: Walker Review of Systems Review of Systems: All systems reviewed & are unremarkable except as noted in HPI & below Physical Exam Constitutional: WD/WN, vitals as above no acute distress Neck: normal visual inspection and trachea midline Respiratory: normal respiratory effort, lungs clear to auscultation Auscultation: + diminished lung sounds and + rales (BL bases ); no rhonchi and no wheezes Cardiovascular: RRR, no murmur, no edema Rate/Rhythm: + bradycardic Heart Sounds: normal S1, normal S2 and + murmur Vessels: no JVD Extremities: + edema (L>R) Gastrointestinal (Abdomen): normal bowel sounds, soft, nontender, no hepatosplenomegaly Skin: no rashes, warm and dry Psychiatric: A+Ox3, euthymic affect Results & Data Vital Signs (Past 12 Hours) Vital Signs Pulse Pulse Resp BP BP Pulse Ox O2 Del Method 02/17/23 04:53 Nasal Cannula 02/17/23 04:00 46 L 16 112/61 98 Nasal Cannula 02/17/23 02:00 46 L 13 107/62 99 02/17/23 01:00 48 L 13 109/57 L 99 02/17/23 00:00 55 L 12 94/64 L 97 02/16/23 22:30 51 L 16 100 Nasal Cannula 02/16/23 22:20 51 L 10 L 99 02/16/23 22:10 49 L 10 L 99 02/16/23 22:01 51 L 8 L 99 Nasal Cannula 02/16/23 22:01 112/64 02/16/23 22:00 52 L 15 98 Nasal Cannula 02/16/23 21:50 53 L 9 L 100 Nasal Cannula 02/16/23 21:40 51 L 18 99 Nasal Cannula 02/16/23 21:30 47 L 12 99 Nasal Cannula 02/16/23 21:20 47 L 12 99 Nasal Cannula 02/16/23 21:10 52 L 13 99 Nasal Cannula 02/16/23 21:00 51 L 20 100 Non-rebreather 02/16/23 20:40 100 02/16/23 20:30 50 L 9 L 98 02/16/23 20:20 81 20 100 02/16/23 20:10 49 L 10 L 100 02/16/23 20:00 54 L 19 100 02/16/23 20:00 50 L 11 L 141/75 H 100 Non-rebreather 02/16/23 22:37 14 02/16/23 20:45 52 L O2 Flow Rate 02/17/23 04:53 2 02/17/23 04:00 2 02/17/23 02:00 02/17/23 01:00 02/17/23 00:00 02/16/23 22:30 3 02/16/23 22:20 02/16/23 22:10 02/16/23 22:01 3 02/16/23 22:01 02/16/23 22:00 3 02/16/23 21:50 3 02/16/23 21:40 3 02/16/23 21:30 3 02/16/23 21:20 3 02/16/23 21:10 3 02/16/23 21:00 12 02/16/23 20:40 02/16/23 20:30 02/16/23 20:20 02/16/23 20:10 02/16/23 20:00 02/16/23 20:00 12 02/16/23 22:37 02/16/23 20:45 Laboratory Results Cardiac Enzymes 02/16/23 02/16/23 02/16/23 Range/Units 11:27 16:06 16:06 AST 10 L (13-39) U/L Troponin I High Sens 6.2 8.0 (0-14) pg/ml B-Natriuretic Peptide 1071 H (0-100) pg/ml 02/17/23 02/17/23 Range/Units 01:02 06:52 AST 8 L (13-39) U/L Troponin I High Sens 9.7 (0-14) pg/ml B-Natriuretic Peptide (0-100) pg/ml Coagulation 02/16/23 02/16/23 02/17/23 Range/Units 11:27 16:06 01:02 PT 24.3 H 26.2 H (9.0-12.0) Seconds APTT 44.7 H* (21.0-31.0) Seconds B-Natriuretic Peptide 1071 H (0-100) pg/ml CBC 02/16/23 02/17/23 Range/Units 11:27 06:52 WBC 8.31 10.93 H (4.8-10.8) K/ul RBC 4.83 4.54 (4.20-5.40) M/uL Hgb 15.7 14.9 (12.0-16.0) g/dl Hct 47.7 H 46.0 (37.0-47.0) % Plt Count 194 181 (130-400) K/uL Neut # (Auto) 7.06 H (1.40-6.50) K/uL Lymph # (Auto) 0.73 L (1.20-3.40) K/uL [place] # (Auto) 0.33 (0.11-0.59) K/uL Eos # (Auto) 0.01 (0.00-0.50) K/uL Baso # (Auto) 0.06 (0.00-0.20) K/uL Comprehensive Metabolic Panel 02/16/23 02/17/23 Range/Units 11:27 06:52 Sodium 141 139 (136-145) mmol/L Potassium 3.3 L 3.2 L (3.5-5.1) mmol/L Chloride 104 104 (98-107) mmol/L Carbon Dioxide 29 29 (21-32) mmol/L BUN 16 14 (6-23) mg/dl Creatinine 0.66 0.64 (0.6-1.2) mg/dl Glucose 88 77 (70-99(Fasting)) mg/dl Calcium 9.1 7.7 L (8.6-10.3) mg/dl AST 10 L 8 L (13-39) U/L ALT 7 3 L (7-52) U/L Alkaline Phosphatase 94 72 (34-104) U/L Total Protein 6.3 5.1 L (6.0-8.3) gm/dl Albumin 4.1 3.3 L (3.4-5.0) gm/dl Intake and Output 02/16/23 02/17/23 02/17/23 22:59 06:59 14:59 Output Total 800 / 800 Balance -800 / -800 Output: Urine Amount (Catheter) 800 / 800 Meléndez/Indwelling 800 / 800 (1) Chest pain Chest pain type: unspecified Qualified Code(s): R07.9 - Chest pain, unspecified
--- NOTE | 2023-02-17 08:04 | Hospitalist Progress Note ---
Date of Service February 17, 2023 Assessment & Plan (1) Carbon monoxide poisoning: Plan: She is mentating clearly today although still tired. No focal neurologic deficit. Received 100% oxygen yesterday and continues to wean off oxygen this morning. Repeat COHb level trended down 12.9-->7.3. Cont supportive care. Will check with patient regarding home CO monitor prior to discharge. Smoking cessation strongly recommended. (2) Chest pain: Plan: resolved. No evidence of ACS at this time. CP may have been related to CO poisoning, vomiting, etc. Smoking cessation strongly advised. Awaiting cardiology recommendations. (3) Vomiting: Plan: resolved, uncertain etiology. May have contributed to her reported chest pain? Cont workup per plan above. (4) Atrial fibrillation: Plan: Chronic stable Takes Coumadin and Metoprolol; continue INR therapeutic this am. (5) CAD (coronary artery disease): Plan: Chronic stable Follows with [facility] Cardiology ECG historically with mild diffuse nonspecific T-wave abnorms. Previous cardiac catheterization 1994 without intervention Pt reports intermittent chest pain on admission in November; mild Troponin elevation Cardiology discussed having a cardiac cath vs medical management. Pt was hesitant to proceed with invasive procedure unless symptoms worsened. Cont home lasix and spironolactone. Awaiting formal cardiology recs. (6) HTN (hypertension): Plan: chronic, stable. Cont home therapy. (7) HLD (hyperlipidemia): Plan: chronic, stable. cont home atorvastatin (8) Opiate dependence: Plan: Back stimulator in place with hydromorphone pump Continue home pain regimen consisting of hydrocodone 10/325 3-4 times daily for breakthrough. PT/OT consults, uses walker at baseline (9) Smoker: Plan: Smokes 1/2 ppd since she was a teenager, ~60 pack year hx Cessation encouraged, pt denies the need for a nicotine patch. (10) Depression: Plan: Chronic stable Takes BuSpar; continue Disposition: to telemetry PCP: Dr. Rodgers CODE STATUS: Full code VTE prophylaxis: On Coumadin I spent a total of 60minutes coordinating, documenting, and providing care for this patient excluding time spent in the performance of separately billed services DO [facility] Hospitalist Admission and Anticipated Discharge Date Admission Date: February 16, 2023 Subjective 77 yo F presents with chest pain that was present on awakening prior to arrival, located on left anterior chest. No further chest pain overnight. Denies cough,fevers, chills. Reports that she was vomiting for the last few days and no idea why. Denies eating bad food. Denies diarrhea and no abdominal pain. Smokes regularly and reports no significant change in her breathing. She is on 2LPM via nc. Rquesting one of her PRN hydrocodone meds and food this am. No vomiting ovenright and she did eat dinner last night. Physical Exam Physical Exam: CONSTITUTIONAL: thin, frail appearing, NAD, vitals as above, appears weak and fatigued. EYES: pupils are round and equal bilaterally, normal conjunctivae, no scleral icterus ENT: external ear and nose normal, MMM NECK: trachea midline RESPIRATORY: clear to auscultation bilaterally, no crackles, rales or wheezes, normal respiratory effort CARDIOVASCULAR: regular rate and rhythm, S1 and 2 heard without murmurs, gallops or rubs, no JVD, no peripheral edema CHEST: inspection of chest was normal GASTROINTESTINAL: normal bowel sounds, soft, nontender, ND, no guarding, rounded disc pain pump is palpable in left abdomen. MUSCULOSKELETAL: generalized weakness without gross focal deficits, head is normocephalic and atraumatic SKIN: warm and dry : gillette catheter in place. NEUROLOGIC: CN 2-12 grossly intact, no sensory deficit, normal cognition, normal speech, no tremor PSYCHIATRIC: alert cooperative and oriented to person, place and time. Euthy abel mood, makes good eye contact, language grossly intact, recent and remote memory grossly intact. Results & Data Results & Data Vital Signs (Past 12 Hours) Vital Signs Pulse Pulse Resp BP BP Pulse Ox O2 Del Method 02/17/23 04:53 Nasal Cannula 02/17/23 04:00 46 L 16 112/61 98 Nasal Cannula 02/17/23 02:00 46 L 13 107/62 99 02/17/23 01:00 48 L 13 109/57 L 99 02/17/23 00:00 55 L 12 94/64 L 97 02/16/23 22:30 51 L 16 100 Nasal Cannula 02/16/23 22:20 51 L 10 L 99 02/16/23 22:10 49 L 10 L 99 02/16/23 22:01 51 L 8 L 99 Nasal Cannula 02/16/23 22:01 112/64 02/16/23 22:00 52 L 15 98 Nasal Cannula 02/16/23 21:50 53 L 9 L 100 Nasal Cannula 02/16/23 21:40 51 L 18 99 Nasal Cannula 02/16/23 21:30 47 L 12 99 Nasal Cannula 02/16/23 21:20 47 L 12 99 Nasal Cannula 02/16/23 21:10 52 L 13 99 Nasal Cannula 02/16/23 21:00 51 L 20 100 Non-rebreather 02/16/23 20:40 100 02/16/23 20:30 50 L 9 L 98 02/16/23 20:20 81 20 100 02/16/23 20:10 49 L 10 L 100 02/16/23 22:37 14 02/16/23 20:45 52 L O2 Flow Rate 02/17/23 04:53 2 02/17/23 04:00 2 02/17/23 02:00 02/17/23 01:00 02/17/23 00:00 02/16/23 22:30 3 02/16/23 22:20 02/16/23 22:10 02/16/23 22:01 3 02/16/23 22:01 02/16/23 22:00 3 02/16/23 21:50 3 02/16/23 21:40 3 02/16/23 21:30 3 02/16/23 21:20 3 02/16/23 21:10 3 02/16/23 21:00 12 02/16/23 20:40 02/16/23 20:30 02/16/23 20:20 02/16/23 20:10 02/16/23 22:37 02/16/23 20:45 Laboratory Results Short CBC 02/16/23 02/17/23 Range/Units 11:27 06:52 WBC 8.31 10.93 H (4.8-10.8) K/ul Hgb 15.7 14.9 (12.0-16.0) g/dl Hct 47.7 H 46.0 (37.0-47.0) % Plt Count 194 181 (130-400) K/uL BMP 02/16/23 02/17/23 11:27 06:52 Sodium 141 139 Potassium 3.3 L 3.2 L Chloride 104 104 Carbon Dioxide 29 29 BUN 16 14 Creatinine 0.66 0.64 Glucose 88 77 Calcium 9.1 7.7 L Liver Function 02/16/23 02/17/23 Range/Units 11:27 06:52 Total Bilirubin 0.9 0.6 (0.2-1.0) mg/dl AST 10 L 8 L (13-39) U/L ALT 7 3 L (7-52) U/L Alkaline Phosphatase 94 72 (34-104) U/L Albumin 4.1 3.3 L (3.4-5.0) gm/dl Urine 02/16/23 Range/Units 13:52 Urine Color Dark Yellow Urine Appearance Turbid A (Clear) Urine pH 5.5 (4.5-7.5) Ur Specific [place] 1.036 H (1.000-1.030) Urine Protein 1+ H (Negative) Urine Glucose (UA) Negative (Negative) Medications Administered Current Inpatient Medications Acetaminophen (Acetaminophen 325 Mg Tab) 650 mg PO Q4H PRN PRN Reason: Pain or Fever Stop: 03/18/23 14:13 Last Admin: 02/16/23 22:59 Dose: 650 mg Hydrocodone Bitart/Acetaminophen (Hydrocodone/Acetaminophen 10/325 Tab) 1 tab PO Q6 PRN PRN Reason: Pain Stop: 03/02/23 14:57 Last Admin: 02/17/23 04:59 Dose: 1 tab Al Hydrox/Mg Hydrox/Simethicone (Aluminum/Magnesium Susp 30 Ml Udc) 15 ml PO Q4H PRN PRN Reason: Dyspepsia Stop: 03/18/23 14:13 Atorvastatin Calcium (Atorvastatin 10 Mg Tab) 10 mg PO QAM [facility] Stop: 03/19/23 08:59 Buspirone HCl (Buspirone 5 Mg Tab) 5 mg PO BID [facility] Stop: 03/18/23 20:59 Last Admin: 02/16/23 22:59 Dose: 5 mg Furosemide (Furosemide 20 Mg Tab) 20 mg PO MoTuWeThFr@0900 [facility] Stop: 03/19/23 08:59 Isosorbide Mononitrate (Isosorbide [place] Extended Rel 30 Mg Tabcr) 30 mg PO QAM [facility] Stop: 03/19/23 08:59 Magnesium Hydroxide (Magnesium Hydroxide Susp 30 Ml Udc) 30 ml PO Q12H PRN PRN Reason: Constipation Stop: 03/18/23 14:13 Metoprolol Succinate (Metoprolol Succ 25mg Ext Rel Tab) 25 mg PO QAM [facility] Stop: 03/19/23 08:59 Ondansetron HCl (Ondansetron Inj 2 Mg/Ml 2 Ml Vial) 4 mg IV Q6H PRN PRN Reason: Nausea Stop: 03/18/23 14:13 Pantoprazole Sodium (Pantoprazole 40 Mg Tab) 40 mg PO DAILY [facility] Stop: 03/19/23 08:59 Polyethylene Glycol (Polyethylene (Miralax) 17 Gm Pack) 17 gm PO DAILY PRN PRN Reason: Constipation Stop: 03/18/23 14:13 Potassium Chloride (Potassium Chloride Crtab 20 Meq Tabcr) 40 meq PO Q6H [facility] Stop: 02/17/23 14:16 Spironolactone (Spironolactone 25 Mg Tab) 25 mg PO MoWeFr@0900 [facility] Stop: 03/19/23 08:59 Trazodone HCl (Trazodone Hcl 100 Mg Tab) 200 mg PO HS [facility] Stop: 03/18/23 20:59 Last Admin: 02/16/23 22:59 Dose: 200 mg Warfarin Sodium (Warfarin Sod 5 Mg Tab) 5 mg PO DAILY@1600 [facility] Stop: 03/19/23 15:59 (1) Carbon monoxide poisoning Encounter type: initial encounter Injury intent: accidental or unintentional Qualified Code(s): T58.91XA - Toxic effect of carbon monoxide from unspecified source, accidental (unintentional), initial encounter (2) Chest pain Chest pain type: unspecified Qualified Code(s): R07.9 - Chest pain, unspecified
[2023-02-17] MEDS ORDERED: SPIRONOLACTONE 25 MG TAB PO SCH (09:00)
[2023-02-17] MEDS ORDERED: METOPROLOL SUCC 25MG EXT REL TAB PO SCH (09:00)
[2023-02-17] MEDS: FUROSEMIDE 20 MG TAB PO SCH (09:42)
[2023-02-17] MEDS: ATORVASTATIN 10 MG TAB PO SCH (09:42)
[2023-02-17] MEDS: ISOSORBIDE MONO EXTENDED REL 30 MG TABCR PO SCH (09:43)
[2023-02-17] MEDS: POTASSIUM CHLORIDE CRTAB 20 MEQ TABCR PO SCH ×2 (09:43→15:39)
[2023-02-17] MEDS: busPIRone 5 MG TAB PO SCH ×2 (09:43→20:57)
[2023-02-17] MEDS: PANTOprazole 40 MG TAB PO SCH (09:43)
[2023-02-17] MEDS ORDERED: POTASSIUM CHLORIDE CRTAB 20 MEQ TABCR PO STA (10:40)
[2023-02-17] MEDS ORDERED: WARFARIN SOD 5 MG TAB PO SCH (16:00)
--- NOTE | 2023-02-17 16:04 | Electrocardiogram Report ---
Test Reason : Blood Pressure : / mmHG Vent. Rate : 065 BPM Atrial Rate : 065 BPM P-R Int : 142 ms QRS Dur : 070 ms QT Int : 440 ms P-R-T Axes : 055 -25 070 degrees QTc Int : 457 ms Normal sinus rhythm Low voltage QRS Septal infarct (cited on or before 08-NOV-2022) Abnormal ECG When compared with ECG of 03-FEB-2023 15:29, QRS axis Shifted left Nonspecific T wave abnormality no longer evident in Inferior leads Nonspecific T wave abnormality, worse in Lateral leads QT has lengthened Confirmed by Darnell Guadalupe ([id number]) on 02/17/2023 4:04:36 PM Referred By: REFERRED SELF Confirmed By:Darnell Guadalupe
--- NOTE | 2023-02-17 16:13 | Electrocardiogram Report ---
Test Reason : Blood Pressure : / mmHG Vent. Rate : 048 BPM Atrial Rate : 048 BPM P-R Int : 112 ms QRS Dur : 066 ms QT Int : 466 ms P-R-T Axes : 021 -08 036 degrees QTc Int : 416 ms Sinus bradycardia Low voltage QRS Cannot rule out Anteroseptal infarct (cited on or before 08-NOV-2022) Abnormal ECG When compared with ECG of 16-FEB-2023 20:40, (unconfirmed) No significant change was found Confirmed by Darnell Guadalupe ([id number]) on 02/17/2023 4:13:29 PM Referred By: REFERRED SELF Confirmed By:Darnell Guadalupe
--- NOTE | 2023-02-17 16:13 | Electrocardiogram Report ---
Test Reason : Blood Pressure : / mmHG Vent. Rate : 049 BPM Atrial Rate : 049 BPM P-R Int : 122 ms QRS Dur : 068 ms QT Int : 428 ms P-R-T Axes : 024 -12 047 degrees QTc Int : 386 ms Sinus bradycardia Low voltage QRS Inferior infarct , age undetermined Cannot rule out Anteroseptal infarct (cited on or before 08-NOV-2022) Abnormal ECG When compared with ECG of 16-FEB-2023 10:47, (unconfirmed) Questionable change in initial forces of Anterior leads Nonspecific T wave abnormality now evident in Inferior leads Nonspecific T wave abnormality, improved in Lateral leads QT has shortened Confirmed by Darnell Guadalupe ([id number]) on 02/17/2023 4:13:08 PM Referred By: REFERRED SELF Confirmed By:Darnell Guadalupe
--- NOTE | 2023-02-17 16:33 | Electrocardiogram Report ---
Test Reason : Blood Pressure : / mmHG Vent. Rate : 054 BPM Atrial Rate : 054 BPM P-R Int : 138 ms QRS Dur : 068 ms QT Int : 480 ms P-R-T Axes : 031 -35 045 degrees QTc Int : 455 ms Sinus bradycardia Left axis deviation Low voltage QRS Inferior infarct , age undetermined Anterior infarct (cited on or before 08-NOV-2022) Abnormal ECG When compared with ECG of 16-FEB-2023 20:42, (unconfirmed) Inferior infarct is now Present Confirmed by Darnell Guadalupe ([id number]) on 02/17/2023 4:33:12 PM Referred By: REFERRED SELF Confirmed By:Darnell Guadalupe
[2023-02-17] MEDS: traZODone HCL 100 MG TAB PO SCH (20:57)
[2023-02-17] MEDS: ACETAMINOPHEN 325 MG TAB PO PRN (20:57)
[2023-02-18] MEDS: ACETAMINOPHEN 325 MG TAB PO PRN (02:34)
[2023-02-18] MEDS: ISOSORBIDE MONO EXTENDED REL 30 MG TABCR PO SCH (08:18)
[2023-02-18] MEDS: ATORVASTATIN 10 MG TAB PO SCH (08:18)
[2023-02-18 09:20] LABS: Hematocrit (blood only) 40.2 % (37.0-47.0); Mean Corpuscular Hemoglobin 32.9 pg (25.0-34.0); Mean Corpuscular Hgb Conc 32.3 g/dL (32.0-36.0); Mean Corpuscular Volume 101.8 fL (80.0-100.0); Mean Platelet Volume 11.1 fL (9.4-12.4); Platelet Count 175 K/uL (130-400); RDW Coefficient of Variation 15.4 % (11.5-14.5); RDW Standard Deviation 57.5 fL (36.4-46.3); Red Blood Count 3.95 M/uL (4.20-5.40); White Blood Count 8.86 K/ul (4.8-10.8)
[2023-02-18 09:56] LABS: INR 2.1 (0.9-1.1); Prothrombin Time 22.3 Seconds (9.0-12.0)
[2023-02-18 10:01] LABS: BUN Creatinine Ratio 20.8 (10-20); Calcium 8.2 mg/dl (8.6-10.3); Creatinine Clr Calc Pharmacy 45.4 ml/min; Est GFR (African American) 85.7 ml/min; Magnesium 1.8 mg/dl (1.7-2.4); Potassium 4.1 mmol/L (3.5-5.1)
[2023-02-18] MEDS: FUROSEMIDE 20 MG TAB PO SCH (11:33)
[2023-02-18] MEDS: busPIRone 5 MG TAB PO SCH (11:33)
[2023-02-18] MEDS: PANTOprazole 40 MG TAB PO SCH (11:33)
[2023-02-18 15:18] VITALS: TEMP 98.1
--- NOTE | 2023-02-18 16:24 | Discharge Summary ---
Discharge Summary Date of Service February 18, 2023 Admission HPI Per Admitting Provider Ms. Campos is a 77 year old male that presented to the [facility] ED with chest and back discomfort. She reports that substernal chest discomfort without radiation that started a few days ago, but has been most bothersome this AM starting at 0600. She has Nitro PRN at home and took her last one this morning. When the pain persisted, she called 911. No SOB or orthopnea. She has a known history of previous back surgeries and has a hydromorphone pain pump. She does not have significant CAD; has underwent a heart catheterization in 1994 without intervention. Patient reports that she does have oil for the main heat source in the home that has been used over the past few days. No leukocytosis, VBG revealed carboxyhemoglobin 12.9% . Lactate pending. Initial troponin 6.2. Patient is a known smoker half pack per day. No ECG changes indicating STEMI. Patient was placed on 100% nonrebreather and we will check repeat carboxyhemoglobin level. Patient was recently admitted to [facility] 01/31/23-02/05/23 for GIB. Her last back surgery was 2014 at [facility]; decompression and fusion of lumbar region. Her last ECHO was 02/02/23 with normal LV wall motion, mild LVH, EF 60-65%, moderate TR and mild pHTN. In patients with the following indications, it is suggested to treat with hyperbaric oxygen therapy (HBO) in addition to normobaric 100 percent oxygen -COHb level >25 percent -COHb level >15 percent in patient -Loss of consciousness -Severe metabolic acidosis (pH <7.25) -Evidence of end-organ ischemia (eg, ECG changes, elevated cardiac biomarkers, respiratory failure, focal neurologic deficit or altered mental status Additional past medical history includes CAD, A-fib, back surgeries, depression, mitral valve prolapse. Patient denies headache, dizziness, shortness of breath, palpitations, abdominal pain or tenderness, visual or auditory changes, recent falls or trauma. Suspect chest discomfort related to carboxyhemoglobin exposure. Will treat with NRB and trend troponin. Patient complaint with medications; will order Lasix 40 mg IV once in addition to daily regimen for increased LE edema; check BMP and consider cardiology involvement if no improvement or increase in trop. Patient will be admitted for further evaluation and management. Please see A/P for further details. Principal Dx & Hospital Course #1 = Principal Diagnosis (1) Carbon monoxide poisoning: She is mentating clearly today although still tired. No focal neurologic deficit. Received 100% oxygen yesterday and continues to wean off oxygen this morning. Repeat COHb level trended down 12.9-->7.3. Cont supportive care. Will check with patient regarding home CO monitor prior to discharge. Smoking cessation strongly recommended. (2) Chest pain: resolved. No evidence of ACS at this time. CP may have been related to CO poisoning, vomiting, etc. Smoking cessation strongly advised. Awaiting cardiology recommendations. (3) Vomiting: resolved, uncertain etiology. May have contributed to her reported chest pain? Cont workup per plan above. (4) Atrial fibrillation: Chronic stable Takes Coumadin and Metoprolol; continue INR therapeutic this am. (5) CAD (coronary artery disease): Chronic stable Follows with [facility] Cardiology ECG historically with mild diffuse nonspecific T-wave abnorms. Previous cardiac catheterization 1994 without intervention Pt reports intermittent chest pain on admission in November; mild Troponin elevation Cardiology discussed having a cardiac cath vs medical management. Pt was hesitant to proceed with invasive procedure unless symptoms worsened. Cont home lasix and spironolactone. Awaiting formal cardiology recs. (6) HTN (hypertension): chronic, stable. Cont home therapy. (7) HLD (hyperlipidemia): chronic, stable. cont home atorvastatin (8) Opiate dependence: Back stimulator in place with hydromorphone pump Continue home pain regimen consisting of hydrocodone 10/325 3-4 times daily for breakthrough. PT/OT consults, uses walker at baseline (9) Smoker: Smokes 1/2 ppd since she was a teenager, ~60 pack year hx Cessation encouraged, pt denies the need for a nicotine patch. (10) Depression: Chronic stable Takes BuSpar; continue Disposition: to telemetry PCP: Dr. Rodgers CODE STATUS: Full code VTE prophylaxis: On Coumadin I spent a total of 60minutes coordinating, documenting, and providing care for this patient excluding time spent in the performance of separately billed services Shivani Roman DO [facility] Hospitalist Discharge Exam CONSTITUTIONAL: thin, frail appearing, NAD, vitals as above, appears weak and fatigued. EYES: pupils are round and equal bilaterally, normal conjunctivae, no scleral icterus ENT: external ear and nose normal, MMM NECK: trachea midline RESPIRATORY: clear to auscultation bilaterally, no crackles, rales or wheezes, normal respiratory effort CARDIOVASCULAR: regular rate and rhythm, S1 and 2 heard without murmurs, gallops or rubs, no JVD, no peripheral edema CHEST: inspection of chest was normal GASTROINTESTINAL: normal bowel sounds, soft, nontender, ND, no guarding, rounded disc pain pump is palpable in left abdomen. MUSCULOSKELETAL: generalized weakness without gross focal deficits, head is normocephalic and atraumatic SKIN: warm and dry : gillette catheter in place. NEUROLOGIC: CN 2-12 grossly intact, no sensory deficit, normal cognition, normal speech, no tremor PSYCHIATRIC: alert cooperative and oriented to person, place and time. Euthymic mood, makes good eye contact, language grossly intact, recent and remote memory grossly intact. Updated Medication List Medication Instructions Recorded Confirmed Type multivitamin 1 tab PO QAM 02/05/20 02/16/23 History omeprazole 20 mg tablet,delayed 20 mg PO QPM 01/20/22 02/16/23 History release rizatriptan 10 mg tablet 10 mg PO UD PRN Migraine Headache 01/20/22 02/16/23 History trazodone 100 mg tablet 200 mg PO HS 01/20/22 02/16/23 History hydrocodone 10 mg-acetaminophen 1 tab PO Q6 PRN Pain 04/22/22 02/16/23 History 325 mg tablet promethazine 12.5 mg tablet 12.5 mg PO Q6H PRN Nausea 06/08/22 02/16/23 History atorvastatin 10 mg tablet 10 mg PO QAM #30 tabs 11/10/22 02/16/23 Rx isosorbide mononitrate 30 mg 30 mg PO QAM #30 tabs 11/10/22 02/16/23 Rx tablet,extended release 24 hr Hydromorphone Pain Pump 0 mg INJ DIRECTED 01/31/23 02/16/23 History htpzwexowd-njthborfyemzt-bvqrphjc 1 tab PO TID PRN Migraine Headache 01/31/23 02/16/23 History 50 mg-325 mg-40 mg tablet calcium carbonate 600 mg-vitamin 1 tab PO DAILY 01/31/23 02/16/23 History D3 10 mcg (400 unit) tablet (Calcium 600 + D(3)) furosemide 20 mg tablet (Lasix) 20 mg PO 5XWK 01/31/23 02/16/23 History metoprolol succinate 25 mg 25 mg PO QAM 01/31/23 02/16/23 History tablet,extended release 24 hr spironolactone 25 mg tablet 25 mg PO 3XWK 01/31/23 02/16/23 History pantoprazole 40 mg tablet,delayed 40 mg PO DAILY #10 tabs 02/05/23 02/16/23 Rx release (Protonix) warfarin 5 mg tablet 5 mg PO DAILY #2 tabs 02/05/23 02/16/23 Rx buspirone 5 mg tablet 5 mg PO BID 02/10/23 02/16/23 History Hospital Stay Data Consultations 02/16/23 14:03 ED Decision to Admit Stat 02/17/23 08:00 Consult Cardiology Routine Pending Results Patient Have Any Pending Studies at Discharge: No Discharge Instructions Given to Patient (Per Discharging Provider) Please take all medications as instructed on the discharge list below. Please follow-up with your primary care provider in one week to ensure you are still doing well after returning home. Your elevated carbon monoxide levels may be from smoking. Smoking cessation is strongly recommended for overall good health. It was a pleasure taking care of you! Please call if you have any questions or problems. You can reach a [facility] hospitalist on duty at [facility] 24 hours a day by calling [phone]. Take care of yourself. Shivani Roman, DO [facility]
[2023-02-18 16:42] VITALS: BP 111/56; PULSE 52; RESP 20; O2SAT 92
== END 2023-02-18 18:00 | disposition home health service (06) | DRG 917 ==
LOC: ED 10:37 → EDINP 14:14 → SUATTDRO 14:14 → 2W 17:03

== ENCOUNTER 2023-02-28 14:52 | Inpatient (IN) ==
--- NOTE | 2023-02-28 14:58 | ED Triage Note ---
Date of Service February 28, 2023 History of Present Illness This patient was briefly evaluated while in triage. An abbreviated physical exam was performed. This patient is a 77-year-old Female who presents to the ED for evaluation of chest pain-left upper into neck and arm was just here last night with the same-->"angina" hx of afib chest pain went away, then came back "they wanted to do another test last night but I wanted to leave." Physical Exam GENERAL: NAD in a wheelchair CARDIOVASCULAR: RRR RESPIRATORY: CTA Initial orders for labs and / or imaging were placed and patient was placed in the waiting area until a bed is available. Please see further documentation for the full ED course.
--- NOTE | 2023-02-28 15:23 | XRay Report ---
XR chest 1V portable CLINICAL HISTORY: Chest pain, nonspecific TECHNIQUE: Single frontal radiograph of the chest was obtained. Comparison: None available at the time of this dictation. FINDINGS: Posterior fixation hardware is seen in the thoracolumbar spine. Old healed rib fractures are noted. T he cardiomediastinal silhouette is stable. The lungs are clear. No evidence of pleural effusion or pn eumothorax. IMPRESSION: No acute chest disease. ACT 112: Negative or not required by law. Electronically signed by: Jared Jung M.D. 02/28/2023 3:22 PM
[2023-02-28 15:40] LABS: Basophils # (auto) 0.05 K/uL (0.00-0.20); Basophils % (auto) 0.5 %; Eosinophils # (auto) 0.01 K/uL (0.00-0.50); Eosinophils % (auto) 0.1 %; Hematocrit (blood only) 48.3 % (37.0-47.0); Hemoglobin 15.7 g/dl (12.0-16.0); Immature Granulocytes # (auto) 0.08 K/uL (0.01-0.20); Immature Granulocytes % (auto) 0.8 %; Lymphocytes # (auto) 0.75 K/uL (1.20-3.40); Lymphocytes % (auto) 7.5 %; Mean Corpuscular Hemoglobin 32.6 pg (25.0-34.0); Mean Corpuscular Hgb Conc 32.5 g/dL (32.0-36.0); Mean Corpuscular Volume 100.2 fL (80.0-100.0); Mean Platelet Volume 10.6 fL (9.4-12.4); Monocytes # (auto) 0.65 K/uL (0.11-0.59); Monocytes % (auto) 6.5 %; Neutrophils # (auto) 8.51 K/uL (1.40-6.50); Neutrophils % (auto) 84.6 %; Platelet Count 168 K/uL (130-400); RDW Coefficient of Variation 14.4 % (11.5-14.5); RDW Standard Deviation 53.3 fL (36.4-46.3); Red Blood Count 4.82 M/uL (4.20-5.40); White Blood Count 10.05 K/ul (4.8-10.8)
[2023-02-28] MEDS ORDERED: NITROGLYCERIN 2% OINTMENT 30GM TUBE EXT ONE (15:49)
[2023-02-28 15:58] LABS: Albumin Level 4.1 gm/dl (3.4-5.0); Bilirubin,Total 0.8 mg/dl (0.2-1.0); Calcium 9.3 mg/dl (8.6-10.3); Potassium 3.7 mmol/L (3.5-5.1)
[2023-02-28 16:04] LABS: Albumin Globulin Ratio 1.6 (0.9-2); BUN Creatinine Ratio 29.4 (10-20); Creatinine Clr Calc Pharmacy 51.5 ml/min; Est GFR (African American) 97.1 ml/min; Est GFR (Non-African American) 83.8 ml/min; Globulin 2.6 gm/dl (2.5-4.0); Total Protein 6.7 gm/dl (6.0-8.3)
[2023-02-28 16:05] LABS: Troponin I High Sensitivity 6.7 pg/ml (0-14)
[2023-02-28 16:07] LABS: INR 1.4 (0.9-1.1); Partial Thromboplastin Ratio 1.2; Prothrombin Time 14.7 Seconds (9.0-12.0)
[2023-02-28] MEDS ORDERED: ASPIRIN CHEW 324 MG PO STA (16:59)
--- NOTE | 2023-02-28 17:36 | History & Physical Report ---
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 Chest Pain Has history of recent admission earlier in February for chest pain with ACS rule out, resumed on lasix and stated on aldactone 2/2 volume overload, directed to follow up in cards clinic . Returned to ED last evening with CP and was encouraged to stay for rule out but elected to be discharged home Presents again this evening with similar pain relieved by ntg paste No acute EKG changes HS trop negative CXR with posterior fixation hardware is seen in the thoracolumbar spine. Old healed rib fractures are noted. The cardiomediastinal silhouette is stable. The lungs are clear. No evidence of pleural effusion or pneumothorax Monitor on tele, trend troponin, cont nitro paste, routine cards consult, NPO at midnight in case of stress test in AM (would not tolerate exercise ST) Atrial fibrillation Chronic stable. Continue Toprol INR subtherapeutic at 1.4. Given increased dose of coumadin 7.5 this evening (daily dose 5mg), recheck INR in AM HTN Chronic stable. Continue diuretics, Toprol, Imdur HLD Chronic stable. Continue atorvastatin Chronic Back Pain Back stimulator in place with hydromorphone pump recently filled and hydrocodone-acetaminophen 10-325 PRN for breakthrough pain; continue home re braxton Uses walker at baseline Tobacco Use Smokes 1/2 ppd since she was a teenager, ~60 pack year hx. Cessation encouraged Migraine Chronic stable, PRN rizatriptan Insomnia Continue trazodone HS Depression: Continue BuSpar DVT Ppx: Coumadin Code status: FULL Dispo: Obs tele Patient seen in collaboration with Dr. Roman. Please see addendum. History of Present Illness Chief Complaint: CP Primary Care Provider: Casey Rodgers This is a 77yo F with a PMH of atrial fibrillation on coumadin, CAD, chronic back pain with stimulator in place, opioid dependence, h/o pleural effusion, HTN, HLD, current smoker, migraines, insomnia, depression and other medical problems listed below who returns to the ED with chest pain. Has history of recent admission earlier in February for chest pain. Was found to have trace left pleural effusion at that time and received IV diuretics. Cardiology was consulted and EKG revealed no acute changes, normal highly sensitive troponin x3 and had a recent echo in January 2023 without acute changes. Does have history of paroxysmal atrial fibrillation with known valvular heart disease and experiences some discomfort and palpitations with this. During previous admission, oral Lasix was resumed and Aldactone was started. Patient thought to have some degree of coronary artery disease but no acute ACS and directed to medically manage and follow-up with cardiology in clinic. Returned to ED last evening with CP that developed at rest was central in location with radiation down left arm with associated palpitations, SOB and nausea. Workup in EDwas negative but ED provider encouraged patient to stay for full ACS rule out due to heart score of 5 but patient elected to be discharged back home. Pain recurred this morning around 0900 at rest. Pain was similar location with radiation down left arm with associated palpitations, SOB and nausea. No vomiting. Pain has improved with 0.5" ntg paste and pain is currently 0/10 but still experiencing her chronic back pain. Ambulates with a walker. Allergies Allergy/AdvReac Type Severity Reaction Status Date / Time chlorhexidine Allergy Mild Rash Verified 02/10/23 11:11 fluconazole [From Diflucan] AdvReac Severe Diarrhea Verified 02/10/23 11:11 (with oral) hydrochlorothiazide AdvReac Intermediate Pancreatiti Verified 02/10/23 11:11 s ondansetron [From Zofran] AdvReac Intermediate Headaches Verified 02/10/23 11:11 Home Medications Medication Instructions Recorded Confirmed Type multivitamin 1 tab PO QAM 02/05/20 02/28/23 History omeprazole 20 mg tablet,delayed 20 mg PO QPM 01/20/22 02/28/23 History release rizatriptan 10 mg tablet 10 mg PO UD PRN Migraine Headache 01/20/22 02/28/23 History trazodone 100 mg tablet 200 mg PO HS 01/20/22 02/28/23 History hydrocodone 10 mg-acetaminophen 1 tab PO Q6 PRN Pain 04/22/22 02/28/23 History 325 mg tablet promethazine 12.5 mg tablet 12.5 mg PO Q6H PRN Nausea 06/08/22 02/28/23 History atorvastatin 10 mg tablet 10 mg PO QAM #30 tabs 11/10/22 02/28/23 Rx isosorbide mononitrate 30 mg 30 mg PO QAM #30 tabs 11/10/22 02/28/23 Rx tablet,extended release 24 hr Hydromorphone Pain Pump 0 mg INJ DIRECTED 01/31/23 02/28/23 History katotunljo-mnfxhkoeswasg-gmtfyqgd 1 tab PO TID PRN Migraine Headache 01/31/23 02/28/23 History 50 mg-325 mg-40 mg tablet calcium carbonate 600 mg-vitamin 1 tab PO DAILY 01/31/23 02/28/23 History D3 10 mcg (400 unit) tablet (Calcium 600 + D(3)) furosemide 20 mg tablet (Lasix) 20 mg PO 5XWK 01/31/23 02/28/23 History metoprolol succinate 25 mg 25 mg PO QAM 01/31/23 02/28/23 History tablet,extended release 24 hr spironolactone 25 mg tablet 25 mg PO 3XWK 01/31/23 02/28/23 History pantoprazole 40 mg tablet,delayed 40 mg PO DAILY #10 tabs 02/05/23 02/28/23 Rx release (Protonix) warfarin 5 mg tablet 5 mg PO DAILY #2 tabs 02/05/23 02/28/23 Rx buspirone 5 mg tablet 5 mg PO BID 02/10/23 02/28/23 History nitroglycerin 0.4 mg sublingual 0.4 mg sublingual Q5M PRN chest 02/18/23 02/28/23 Rx tablet pain #30 tabs Past Med/Surg History Medical History Atrial fibrillation CAD (coronary artery disease) Depression Encounter for pre-operative examination Fracture, tibia, with fibula Gastric ulcer Gastritis "Getting under control" GERD (gastroesophageal reflux disease) Hiatal hernia History of blood transfusion Pt reports post-op after hip surgery and lumbar surgery History of syncope Previously followed with cardiology, per Dr Lockhart ([facility]), "syncope in the setting of polypharmacy for severe low back pain." Last seen by cardio 11/2018, to follow up PRN per cardio. HLD (hyperlipidemia) HTN (hypertension) Migraine MVP (mitral valve prolapse) Not noted on 03/2016 echo (Mild MR was present) Opiate dependence Pancreatitis Approximately 2018 Postlaminectomy syndrome of lumbosacral region Postlaminectomy syndrome of thoracic region Recurrent UTI Surgical History H/O spinal fusion Extensive [id number] (x2 lumbar fusions) History of anesthesia reaction "severe hypotension" per patient following second back surgery. ([facility] 2017). Review of records shows documentation from anesthesia that hypotension was treated in PACU, BP in post-anesthetic evaluation 92/51. Subsequent intrathecal pain pump (03/19/20): Grade view 1, MAC#3, ETT 6.5 at [facility] without issue noted per post-op anesthesia progress note/discharge summary. History of appendectomy History of cardiac cath Approximately 1994 > no stents History of cataract surgery R/L History of cholecystectomy History of colonoscopy History of dilatation and curettage History of esophagogastroduodenoscopy (EGD) History of hip surgery Right hip History of open reduction and internal fixation (ORIF) procedure Left hip S/P hardware removal Left hip x2 S/P CECILIA-BSO Family History Mother Family history of diabetes mellitus Grandmother (Maternal) Family history of diabetes mellitus Grandmother (Paternal) Family history of diabetes mellitus Other No family history of adverse response to anesthesia Social History Smoking Status: Current every day smoker Tobacco Type: Cigarettes packs per day: 0.5; Cigarettes Per Day: 10; Second Hand Exposure: No; Do You Dip or Chew Tobacco: No; Tobacco Cessation Education Requested by Patient: No Hx Alcohol Use: No Hx Substance Use: No Preferred Language: Tajik Communication Ability: Effective Visual Impairment: No Limitations Hearing Ability: Normal 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 Physical Exam Physical Exam: Please see Dr. Clifford's addendum for physical exam. Results & Data Results & Data Vital Signs (Past 12 Hours) Vital Signs Temp Pulse Pulse Resp BP BP Pulse Ox 02/28/23 17:01 68 142/79 H 96 02/28/23 15:57 98 02/28/23 15:56 69 18 97 02/28/23 15:30 70 18 128/76 97 02/28/23 15:48 64 02/28/23 14:57 36.2 C L 71 20 148/63 H 96 O2 Del Method 02/28/23 17:01 Room Air 02/28/23 15:57 Room Air 02/28/23 15:56 Room Air 02/28/23 15:30 Room Air 02/28/23 15:48 02/28/23 14:57 Laboratory Results Short CBC 02/28/23 Range/Units 15:25 WBC 10.05 (4.8-10.8) K/ul Hgb 15.7 (12.0-16.0) g/dl Hct 48.3 H (37.0-47.0) % Plt Count 168 (130-400) K/uL BMP 02/28/23 15:25 Sodium 138 Potassium 3.7 Chloride 104 Carbon Dioxide 28 BUN 20 Creatinine 0.68 Glucose 96 Calcium 9.3 Liver Function 02/28/23 Range/Units 15:25 Total Bilirubin 0.8 (0.2-1.0) mg/dl AST 14 (13-39) U/L ALT 7 (7-52) U/L Alkaline Phosphatase 89 (34-104) U/L Albumin 4.1 (3.4-5.0) gm/dl Diagnostic Findings Chest X-Ray 02/28/23 14:58 XR chest 1V portable CLINICAL HISTORY: Chest pain, nonspecific TECHNIQUE: Single frontal radiograph of the chest was obtained. Comparison: None available at the time of this dictation. FINDINGS: Posterior fixation hardware is seen in the thoracolumbar spine. Old healed rib fractures are noted. The cardiomediastinal silhouette is stable. The lungs are clear. No evidence of pleural effusion or pneumothorax. IMPRESSION: No acute chest disease. ACT 112: Negative or not required by law. Electronically signed by: Jared Jung M.D. 02/28/2023 3:22 PM Supervising Physician Co-Signing Physician Notes 77-year-old woman with paroxysmal A-fib, hypertension, mitral insufficiency who presents with chest pain. Had presented to the ER with chest pain and started at rest yesterday afternoon on and was discharged yesterday evening. Reports that chest pain recurred this morning, this was at rest associated with shortness of breath and nausea. Describes chest pain as pressure-like pain and occasional palpitations. Pain radiates down the left arm At time of evaluation, patient reports that pain has currently resolved with nitro patch. Reports chronic back pain Reports chronic low back pain. On exam, General: Elderly woman, thin, no acute distress Eyes: PERRL, conjunctivae normal, not pale, anicteric sclerae, EOM intact bilaterally ENMT: External ear and nose normal, oropharynx normal Respiratory: Normal respiratory effort, no respiratory distress, lungs clear to auscultation, no crackles and no wheezes Cardiovascular: RRR s1 s2 Chest (Breasts): No chest wall tenderness Gastrointestinal (Abdomen): Abdomen is not distended, soft, non-tender to palpation, no guarding, no palpable hepatosplenomegaly, normal bowel sounds. Pain pump palpable Musculoskeletal: +pedal edema. Palpable bony spur on upper central back (chronic per patient) Neurologic: Alert and oriented x 3, No focal weakness, sensation grossly intact Psychiatric: Euthymic affect Labs notable for MCV of 100.2, INR of 1.4 Chest x-ray did not show any acute abnormality Initial troponin is normal. We will trend troponin We will admit for chest pain rule out. Cardiology consult. Telemetry monitoring Reviewed recent echo from last month (5) Chronic back pain Back pain laterality: unspecified Back pain location: thoracic back pain Qualified Code(s): M54.6 - Pain in thoracic spine; G89.29 - Other chronic pain
[2023-02-28] MEDS ORDERED: WARFARIN SOD 7.5 MG TAB PO STA (19:03)
[2023-02-28] MEDS ORDERED: POLYETHYLENE (MIRALAX) 17 GM PACK PO PRN (19:50)
[2023-02-28] MEDS ORDERED: ACETAMINOPHEN 325 MG TAB PO PRN (19:50)
[2023-02-28] MEDS ORDERED: ONDANSETRON INJ 2 MG/ML 2 ML VIAL IV PRN (19:50)
--- NOTE | 2023-02-28 19:55 | Emergency Department Note ---
Impression & Plan Atypical chest pain, CAD (coronary artery disease) ED Provider Note CHIEF COMPLAINT: Chest pain HISTORY OF PRESENT ILLNESS: This 77-year-old patient with past medical history of tobacco smoking, CHF, hyperlipidemia, hypertension, CAD, atrial fibrillation on anticoagulation, opioid dependency, gastric ulcer presents to the emergency department with complaints of chest pain into the neck and left arm. The patient states at 9:00 this morning the pain returned. She was hospitalized earlier this month with similar complaints, was seen yesterday in the emergency department and preferred not to be admitted. She denies any fevers, cough, worsening shortness of breath. REVIEW OF SYSTEMS: A review of systems was performed with positives and pertinent negatives listed in the history of present illness. 10 systems were reviewed and are otherwise negative. ALLERGIES: see below MEDICATIONS: see below PMH: see below SOCIAL HISTORY: see below DDx: ACS, musculoskeletal pain, pneumonia, pleural effusion, radiculopathy, PE among others PHYSICAL EXAM: Vital signs reviewed. General: Chronically ill-appearing 77-year-old female, in no significant distress. Thin and frail. HEENT: No scleral icterus, PERRLA, neck supple. Atraumatic. Cardiovascular: Regular rate and rhythm, no extra sounds. Pulmonary: Clear to auscultation bilaterally, normal work of breathing. Abdomen: Soft, nontender, nondistended, positive bowel sounds. Musculoskeletal: Atraumatic, no peripheral edema. Neurologic: Patient awake alert and oriented x 3, speech is clear Skin: Warm, dry, no rash EXTERNAL medical record review: Previous ER visits dated 02/16 and slight 02/27/2023, hospitalist notes dated 02/18/2023. EMERGENCY DEPARTMENT COURSE/MDM: This patient was evaluated and appeared to be in no significant distress. Patient's records were reviewed. IV access was obtained and laboratory work was drawn. Patient was placed on the block mechanic noted to be in normal sinus rhythm. EKG reveals no evidence of acute ischemic change. Patient was given 325 mg of aspirin to chew. Nitroglycerin paste was applied. Patient seemed to be comfortable on my evaluation. Chest x- ray was performed and reveals no evidence of congestive heart failure or focal lung consolidation. Given the patient's risk factors and known CAD, the case was discussed with the hospitalist service despite negative high-sensitivity troponin for further evaluation management. Patient was made aware of the plan and agreed. MONITORING: An order for cardiac monitoring was placed and the patient is noted to be in a normal sinus 68 beats per minute. RADIOLOGY: To my interpretation chest x-ray reveals no evidence of focal lung consolidation or failure, otherwise defer to radiology EKG: To my interpretation reveals normal sinus rhythm at 66 bpm. Overall low voltage, QTc of 419. No PVC, no PAC. Normal ST segments DISPOSITION:. Admission Past Med/Surg History Medical History Atrial fibrillation CAD (coronary artery disease) Depression Encounter for pre-operative examination Fracture, tibia, with fibula Gastric ulcer Gastritis "Getting under control" GERD (gastroesophageal reflux disease) Hiatal hernia History of blood transfusion Pt reports post-op after hip surgery and lumbar surgery History of syncope Previously followed with cardiology, per Dr Lockhart ([facility]), "syncope in the setting of polypharmacy for severe low back pain." Last seen by cardio 11/2018, to follow up PRN per cardio. HLD (hyperlipidemia) HTN (hypertension) Migraine MVP (mitral valve prolapse) Not noted on 03/2016 echo (Mild MR was present) Opiate dependence Pancreatitis Approximately 2018 Postlaminectomy syndrome of lumbosacral region Postlaminectomy syndrome of thoracic region Recurrent UTI Surgical History H/O spinal fusion Extensive [id number] (x2 lumbar fusions) History of anesthesia reaction "severe hypotension" per patient following second back surgery. ([facility] 2017). Review of records shows documentation from anesthesia that hypotension was treated in PACU, BP in post-anesthetic evaluation 92/51. Subsequent intrathecal pain pump (03/19/20): Grade view 1, MAC#3, ETT 6.5 at [facility] without issue noted per post-op anesthesia progress note/discharge summary. History of appendectomy History of cardiac cath Approximately 1994 > no stents History of cataract surgery R/L History of cholecystectomy History of colonoscopy History of dilatation and curettage History of esophagogastroduodenoscopy (EGD) History of hip surgery Right hip History of open reduction and internal fixation (ORIF) procedure Left hip S/P hardware removal Left hip x2 S/P CECILIA-BSO Family History Mother Family history of diabetes mellitus Grandmother (Maternal) Family history of diabetes mellitus Grandmother (Paternal) Family history of diabetes mellitus Other No family history of adverse response to anesthesia Social History Smoking Status: Current every day smoker Tobacco Type: Cigarettes packs per day: 0.5; Cigarettes Per Day: 10; Second Hand Exposure: No; Do You Dip or Chew Tobacco: No; Hx Alcohol Use: No Hx Substance Use: No Preferred Language: Paragu[place] Communication Ability: Effective Visual Impairment: No Limitations Hearing Ability: Normal [employer]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 Beliefs That Will Affect Care: None marital status: Current Living Situation: Spouse Current Living Situation Comment: w/ current occupational status: retired Feels Safe at Home: Yes Assistive Devices: None Allergies Allergies Allergy/AdvReac Type Severity Reaction Status Date / Time chlorhexidine Allergy Mild Rash Verified 02/10/23 11:11 fluconazole [From Diflucan] AdvReac Severe Diarrhea Verified 02/10/23 11:11 (with oral) hydrochlorothiazide AdvReac Intermediate Pancreatiti Verified 02/10/23 11:11 s ondansetron [From Zofran] AdvReac Intermediate Headaches Verified 02/10/23 11:11 Home Meds Home Medications Medication Instructions Recorded Confirmed multivitamin 1 tab PO QAM 02/05/20 02/28/23 omeprazole 20 mg tablet,delayed 20 mg PO QPM 01/20/22 02/28/23 release rizatriptan 10 mg tablet 10 mg PO UD PRN Migraine Headache 01/20/22 02/28/23 trazodone 100 mg tablet 200 mg PO HS 01/20/22 02/28/23 hydrocodone 10 mg-acetaminophen 1 tab PO Q6 PRN Pain 04/22/22 02/28/23 325 mg tablet promethazine 12.5 mg tablet 12.5 mg PO Q6H PRN Nausea 06/08/22 02/28/23 Hydromorphone Pain Pump 0 mg INJ DIRECTED 01/31/23 02/28/23 [id number] 1 tab PO TID PRN Migraine Headache 01/31/23 02/28/23 50 mg-325 mg-40 mg tablet calcium carbonate 600 mg-vitamin 1 tab PO DAILY 01/31/23 02/28/23 D3 10 mcg (400 unit) tablet (Calcium 600 + D(3)) furosemide 20 mg tablet (Lasix) 20 mg PO [id number] 01/31/23 02/28/23 metoprolol succinate 25 mg 25 mg PO QAM 01/31/23 02/28/23 tablet,extended release 24 hr spironolactone 25 mg tablet 25 mg PO [id number] 01/31/23 02/28/23 buspirone 5 mg tablet 5 mg PO BID 02/10/23 02/28/23 Previous Rx's Medication Instructions Recorded atorvastatin 10 mg tablet 10 mg PO QAM #30 tabs 11/10/22 pantoprazole 40 mg tablet,delayed 40 mg PO DAILY #10 tabs 02/05/23 release (Protonix) warfarin 5 mg tablet 5 mg PO DAILY #2 tabs 02/05/23 nitroglycerin 0.4 mg sublingual 0.4 mg sublingual Q5M PRN chest 02/18/23 tablet pain #30 tabs nitroglycerin 0.4 mg/hr 1 patch transdermal QAM #30 ea 03/03/23 transdermal 24 hour patch (Nitro-Dur) Results & Data (ED) Vital Signs Vital Signs - 24 hr 02/28/23 14:57 02/28/23 15:48 02/28/23 15:30 Temperature 36.2 C L Temperature Source Temporal Artery Scan Pulse Rate 71 64 Pulse Rate [Apical] 70 Pulse Rhythm Regular Pulse Strength Normal Respiratory Rate 20 18 Respiratory Effort / Characteristics Non-Labored Spontaneous Respiratory Depth Normal Respiratory Pattern Regular Blood Pressure 148/63 H Blood Pressure [Right Arm] 128/76 Blood Pressure Mean 91 Blood Pressure Mean [Right Arm] 93 Blood Pressure Position Sitting Blood Pressure Position [Right Arm] Semi-fowlers Pulse Oximetry 96 97 Oxygen Delivery Method Room Air Sepsis Recent Fever Within 48 Hours No Sepsis New/Unexplained Change in Mental Status No Sepsis Action Taken by Nursing No Action Required 02/28/23 15:56 02/28/23 15:57 02/28/23 17:01 Temperature Temperature Source Pulse Rate 69 Pulse Rate [Apical] 68 Pulse Rhythm Pulse Strength Respiratory Rate 18 Respiratory Effort / Characteristics Respiratory Depth Respiratory Pattern Blood Pressure Blood Pressure [Right Arm] 142/79 H Blood Pressure Mean Blood Pressure Mean [Right Arm] 100 Blood Pressure Position Blood Pressure Position [Right Arm] Semi-fowlers Pulse Oximetry 97 98 96 Oxygen Delivery Method Room Air Room Air Room Air Sepsis Recent Fever Within 48 Hours Sepsis New/Unexplained Change in Mental Status Sepsis Action Taken by [facility] Medications Current Medication List: was personally reviewed by me Laboratory Data Attestation: I reviewed the patient's lab results. 02/28/23 15:25 02/28/23 15:25 Lab Results 02/28/23 02/28/23 02/28/23 Range/Units 15:25 15:25 15:25 WBC 10.05 (4.8-10.8) K/ul RBC 4.82 (4.20-5.40) M/uL Hgb 15.7 (12.0-16.0) g/dl Hct 48.3 H (37.0-47.0) % MCV 100.2 H (80.0-100.0) fL MCH 32.6 (25.0-34.0) pg MCHC 32.5 (32.0-36.0) g/dL RDW Std Deviation 53.3 H (36.4-46.3) fL RDW Coeff of Oliver 14.4 (11.5-14.5) % Plt Count 168 (130-400) K/uL MPV 10.6 (9.4-12.4) fL Immature Gran % (Auto) 0.8 % Neut % (Auto) 84.6 % Lymph % (Auto) 7.5 % [place] % (Auto) 6.5 % Eos % (Auto) 0.1 % Baso % (Auto) 0.5 % Neut # (Auto) 8.51 H (1.40-6.50) K/uL Lymph # (Auto) 0.75 L (1.20-3.40) K/uL [place] # (Auto) 0.65 H (0.11-0.59) K/uL Eos # (Auto) 0.01 (0.00-0.50) K/uL Baso # (Auto) 0.05 (0.00-0.20) K/uL Immature Gran # (Auto) 0.08 (0.01-0.20) K/uL PT 14.7 H (9.0-12.0) Seconds INR 1.4 H (0.9-1.1) APTT 35.0 H (21.0-31.0) Seconds PTT Ratio 1.2 Sodium 138 (136-145) mmol/L Potassium 3.7 (3.5-5.1) mmol/L Chloride 104 (98-107) mmol/L Carbon Dioxide 28 (21-32) mmol/L Anion Gap 6 (3-11) BUN 20 (6-23) mg/dl Creatinine 0.68 (0.6-1.2) mg/dl Est Cr Clr Drug Dosing 51.5 ml/min Est GFR ( Amer) 97.1 ml/min Est GFR (Non-Af Amer) 83.8 ml/min BUN/Creatinine Ratio 29.4 H (10-20) Glucose 96 (70-99(Fasting)) mg/dl Estimat Average Glucose mg/dl Hemoglobin A1c (4.5-5.6) % Calcium 9.3 (8.6-10.3) mg/dl Total Bilirubin 0.8 (0.2-1.0) mg/dl AST 14 (13-39) U/L ALT 7 (7-52) U/L Alkaline Phosphatase 89 (34-104) U/L Troponin I High Sens 6.7 (0-14) pg/ml Total Protein 6.7 (6.0-8.3) gm/dl Albumin 4.1 (3.4-5.0) gm/dl Globulin 2.6 (2.5-4.0) gm/dl Albumin/Globulin Ratio 1.6 (0.9-2) Triglycerides (0-150) mg/dl Cholesterol (0-200) mg/dl LDL Cholesterol, Calc mg/dl VLDL Cholesterol, Calc (0-30) mg/dl HDL Cholesterol mg/dl Cholesterol/HDL Ratio (0-5) 02/28/23 03/01/23 03/01/23 Range/Units 21:36 03:35 03:35 WBC (4.8-10.8) K/ul RBC (4.20-5.40) M/uL Hgb (12.0-16.0) g/dl Hct (37.0-47.0) % MCV (80.0-100.0) fL MCH (25.0-34.0) pg MCHC (32.0-36.0) g/dL RDW Std Deviation (36.4-46.3) fL RDW Coeff of Oliver (11.5-14.5) % Plt Count (130-400) K/uL MPV (9.4-12.4) fL Immature Gran % (Auto) % Neut % (Auto) % Lymph % (Auto) % [place] % (Auto) % Eos % (Auto) % Baso % (Auto) % Neut # (Auto) (1.40-6.50) K/uL Lymph # (Auto) (1.20-3.40) K/uL [place] # (Auto) (0.11-0.59) K/uL Eos # (Auto) (0.00-0.50) K/uL Baso # (Auto) (0.00-0.20) K/uL Immature Gran # (Auto) (0.01-0.20) K/uL PT 18.9 H (9.0-12.0) Seconds INR 1.8 H (0.9-1.1) APTT (21.0-31.0) Seconds PTT Ratio Sodium 139 (136-145) mmol/L Potassium 3.5 (3.5-5.1) mmol/L Chloride 108 H (98-107) mmol/L Carbon Dioxide 29 (21-32) mmol/L Anion Gap 2 L (3-11) BUN 17 (6-23) mg/dl Creatinine 0.56 L (0.6-1.2) mg/dl Est Cr Clr Drug Dosing 61.6 ml/min Est GFR ( Amer) 103.5 ml/min Est GFR (Non-Af Amer) 89.3 ml/min BUN/Creatinine Ratio 30.4 H (10-20) Glucose 82 (70-99(Fasting)) mg/dl Estimat Average Glucose mg/dl Hemoglobin A1c (4.5-5.6) % Calcium 8.4 L (8.6-10.3) mg/dl Total Bilirubin (0.2-1.0) mg/dl AST (13-39) U/L ALT (7-52) U/L Alkaline Phosphatase (34-104) U/L Troponin I High Sens 7.8 9.1 (0-14) pg/ml Total Protein (6.0-8.3) gm/dl Albumin (3.4-5.0) gm/dl Globulin (2.5-4.0) gm/dl Albumin/Globulin Ratio (0.9-2) Triglycerides 84 (0-150) mg/dl Cholesterol 89 (0-200) mg/dl LDL Cholesterol, Calc 33 mg/dl VLDL Cholesterol, Calc 17 (0-30) mg/dl HDL Cholesterol 39 mg/dl Cholesterol/HDL Ratio 2.3 (0-5) 03/01/23 03/01/23 03/01/23 Range/Units 03:36 03:36 18:36 WBC 6.89 (4.8-10.8) K/ul RBC 4.03 L (4.20-5.40) M/uL Hgb 13.2 (12.0-16.0) g/dl Hct 40.1 (37.0-47.0) % MCV 99.5 (80.0-100.0) fL MCH 32.8 (25.0-34.0) pg MCHC 32.9 (32.0-36.0) g/dL RDW Std Deviation 53.2 H (36.4-46.3) fL RDW Coeff of Oliver 14.4 (11.5-14.5) % Plt Count 146 (130-400) K/uL MPV 10.6 (9.4-12.4) fL Immature Gran % (Auto) % Neut % (Auto) % Lymph % (Auto) % [place] % (Auto) % Eos % (Auto) % Baso % (Auto) % Neut # (Auto) (1.40-6.50) K/uL Lymph # (Auto) (1.20-3.40) K/uL [place] # (Auto) (0.11-0.59) K/uL Eos # (Auto) (0.00-0.50) K/uL Baso # (Auto) (0.00-0.20) K/uL Immature Gran # (Auto) (0.01-0.20) K/uL PT (9.0-12.0) Seconds INR (0.9-1.1) APTT 60.6 H* (21.0-31.0) Seconds PTT Ratio 2.1 Sodium (136-145) mmol/L Potassium (3.5-5.1) mmol/L Chloride (98-107) mmol/L Carbon Dioxide (21-32) mmol/L Anion Gap (3-11) BUN (6-23) mg/dl Creatinine (0.6-1.2) mg/dl Est Cr Clr Drug Dosing ml/min Est GFR ( Amer) ml/min Est GFR (Non-Af Amer) ml/min BUN/Creatinine Ratio (10-20) Glucose (70-99(Fasting)) mg/dl Estimat Average Glucose 111 mg/dl Hemoglobin A1c 5.5 (4.5-5.6) % Calcium (8.6-10.3) mg/dl Total Bilirubin (0.2-1.0) mg/dl AST (13-39) U/L ALT (7-52) U/L Alkaline Phosphatase (34-104) U/L Troponin I High Sens (0-14) pg/ml Total Protein (6.0-8.3) gm/dl Albumin (3.4-5.0) gm/dl Globulin (2.5-4.0) gm/dl Albumin/Globulin Ratio (0.9-2) Triglycerides (0-150) mg/dl Cholesterol (0-200) mg/dl LDL Cholesterol, Calc mg/dl VLDL Cholesterol, Calc (0-30) mg/dl HDL Cholesterol mg/dl Cholesterol/HDL Ratio (0-5) Administered Medications Discontinued Medications Hydrocodone Bitart/Acetaminophen (Hydrocodone/Acetaminophen 10/325 Tab) 1 tab PO Q6 PRN PRN Reason: Pain Stop: 03/14/23 20:11 Last Admin: 03/03/23 08:08 Dose: 1 tab Documented By: Admin: 03/03/23 02:18 Dose: 1 tab Documented By: Admin: 03/02/23 17:49 Dose: 1 tab Documented By: Admin: 03/02/23 06:38 Dose: 1 tab Documented By: Admin: 03/02/23 00:44 Dose: 1 tab Documented By: Admin: 03/01/23 18:03 Dose: 1 tab Documented By: Admin: 03/01/23 12:05 Dose: 1 tab Documented By: Admin: 03/01/23 06:14 Dose: 1 tab Documented By: Admin: 02/28/23 20:44 Dose: 1 tab Documented By: KARLI Aspirin (Aspirin Chew 324 Mg) 324 mg PO NOW STA Stop: 02/28/23 17:00 Last Admin: 02/28/23 17:01 Dose: 324 mg Documented By: AB Atorvastatin Calcium (Atorvastatin 10 Mg Tab) 10 mg PO QAM REJI Stop: 03/31/23 08:59 Last Admin: 03/03/23 07:45 Dose: 10 mg Documented By: Admin: 03/02/23 08:01 Dose: 10 mg Documented By: Admin: 03/01/23 08:47 Dose: 10 mg Documented By: PHYLLIS Buspirone HCl (Buspirone 5 Mg Tab) 5 mg PO BID REJI Stop: 03/30/23 20:59 Last Admin: 03/03/23 07:46 Dose: 5 mg Documented By: Admin: 03/02/23 20:22 Dose: 5 mg Documented By: Admin: 03/02/23 08:01 Dose: 5 mg Documented By: Admin: 03/01/23 21:15 Dose: 5 mg Documented By: Admin: 03/01/23 08:46 Dose: 5 mg Documented By: Admin: 02/28/23 20:56 Dose: 5 mg Documented By: GEE Calcium/Vitamin D (Calcium 600mg + Vit D 400 Iu Tab) 1 tab PO DAILY [facility] Stop: 03/31/23 08:59 Last Admin: 03/03/23 07:45 Dose: 1 tab Documented By: Admin: 03/02/23 08:02 Dose: 1 tab Documented By: Admin: 03/01/23 12:06 Dose: 1 tab Documented By: PHYLLIS Fentanyl Citrate (Fentanyl Citrate Pf 100 Mcg/2 Ml Vial) Confirm Administered Dose 100 mcg .ROUTE .STK-MED ONE Stop: 03/02/23 13:06 Last Increment: 03/02/23 14:08 Dose: 50 mcg Documented By: YUNIOR Furosemide (Furosemide 20 Mg Tab) 20 mg PO MoTuWeThFr@0900 [facility] Stop: 03/31/23 08:59 Last Admin: 03/03/23 07:45 Dose: 20 mg Documented By: Admin: 03/02/23 08:02 Dose: 20 mg Documented By: Admin: 03/01/23 08:46 Dose: 20 mg Documented By: PHYLLIS Heparin Sodium (Porcine) (Heparin (Porcine) 1000 Unit/Ml 10 Ml (Motorcycle Repair Shop Supervisor Use Only)) Confirm Administered Dose 10,000 units .ROUTE .STK-MED ONE Stop: 03/02/23 13:05 Last Admin: 03/02/23 14:08 Dose: 5,000 units Documented By: YUNIOR Heparin Sodium (Porcine) (Heparin (Porcine) 1000 Unit/Ml 10 Ml (Motorcycle Repair Shop Supervisor Use Only)) Confirm Administered Dose 10,000 units .ROUTE .STK-MED ONE Stop: 03/02/23 13:55 Last Admin: 03/02/23 16:09 Dose: Not Given Documented By: AM Heparin Sodium/Dextrose (Heparin Iv Adult Wt-Based Standard *No* Bolus Protocol) 1 each IV Q15M [facility]; Protocol Stop: 03/01/23 10:54 Last Admin: 03/01/23 19:02 Dose: 1 each Documented By: Admin: 03/01/23 12:33 Dose: 1 each Documented By: Admin: 03/01/23 12:26 Dose: Not Given Documented By: PHYLLIS Heparin Sodium/Dextrose (Heparin 29934 Unit/500 Ml D5w) Confirm Administered Dose 25,000 units IV .STK-MED ONE Stop: 03/01/23 12:09 Last Admin: 03/01/23 12:32 Dose: Not Given Documented By: PHYLLIS Heparin Sodium/Sodium Chloride (Heparin In Nss Infusion 1000 Unit/500 Ml (2 U/Ml) Bag) Confirm Administered Dose 3,000 units IV .STK-MED ONE Stop: 03/02/23 13:06 Last Admin: 03/02/23 13:40 Dose: 3,000 units Documented By: FREDY Hydroxyzine HCl (Hydroxyzine Hcl 10 Mg Tab) 10 mg PO QID PRN PRN Reason: Anxiety Stop: 04/01/23 19:53 Last Admin: 03/02/23 22:19 Dose: 10 mg Documented By: FEDERICO Heparin Sodium/Dextrose (Heparin Sodium/Dextrose) 25,000 units in 500 mls @ 0 mls/hr IV .Q0M [facility]; Protocol Stop: 03/31/23 12:29 Last Admin: 03/02/23 18:10 Dose: Not Given Documented By: Titration: 03/02/23 18:10 Dose: 0 units/hr, 0 mls/hr Documented By: AM Co-signed By: TIFFANY Titration: 03/02/23 12:30 Dose: 0 units/hr, 0 mls/hr Documented By: AM Co-signed By: TIFFANY Titration: 03/02/23 08:17 Dose: 650 units/hr, 13 mls/hr Documented By: KENNEY Co-signed By: TIFFANY Titration: 03/02/23 05:55 Dose: 0 units/hr, 0 mls/hr Documented By: KARLI Co-signed By: BIBI Titration: 03/01/23 18:59 Dose: 850 units/hr, 17 mls/hr Documented By: KARLI Co-signed By: PHYLLIS Admin: 03/01/23 12:32 Dose: 850 units/hr, 17 mls/hr Documented By: PHYLLIS Co-signed By: VIVIAN Albumin Human (Albumin 25%) 25 gm in 100 mls @ 50 mls/hr IV ONE ONE Stop: 03/02/23 08:08 Last Infusion: 03/02/23 08:14 Dose: 0 mls/hr Documented By: Admin: 03/02/23 06:33 Dose: 50 mls/hr Documented By: KARLI Magnesium Sulfate/Dextrose (Magnesium Sulfate / D5w) 1 gm in 100 mls @ 50 mls/h r IV ONE ONE Stop: 03/02/23 08:29 Last Infusion: 03/02/23 08:58 Dose: 0 mls/hr Documented By: Admin: 03/02/23 06:50 Dose: 50 mls/hr Documented By: KARLI Isosorbide Mononitrate (Isosorbide [place] Extended Rel 30 Mg Tabcr) [facility] [place]: 03/31/23 08:59 Last Admin: 03/02/23 08:02 Dose: 30 mg Documented By: Admin: 03/01/23 08:47 Dose: 30 mg Documented By: PHYLLIS Metoprolol Succinate (Metoprolol Succ 25mg Ext Rel Tab) 25 mg PO QAM [facility] Stop: 03/31/23 08:59 Last Admin: 03/03/23 07:45 Dose: 25 mg Documented By: Admin: 03/02/23 08:02 Dose: 25 mg Documented By: Admin: 03/01/23 08:46 Dose: 25 mg Documented By: PHYLLIS Midazolam HCl (Midazolam Hcl 1 Mg/Ml 2ml Vial) Confirm Administered Dose 2 mg .ROUTE .STK-MED ONE Stop: 03/02/23 13:06 Last Increment: 03/02/23 14:09 Dose: 1 mg Documented By: YUNIOR Multivitamins (Multivitamin Tab) 1 tab PO QAM [facility] Stop: 03/31/23 08:59 Last Admin: 03/03/23 07:45 Dose: 1 tab Documented By: Admin: 03/02/23 08:01 Dose: 1 tab Documented By: Admin: 03/01/23 12:07 Dose: 1 tab Documented By: PHYLLIS Nicardipine HCl (Nicardipine Hcl Inj 2.5 Mg/Ml 10 Ml Amp) Confirm Administered Dose 25 mg .ROUTE .STK-MED ONE Stop: 03/02/23 13:06 Last Admin: 03/02/23 13:41 Dose: 25 mg Documented By: FREDY Nitroglycerin (Nitroglycerin 2% Ointment 30gm Tube) 0.5 inch EXT NOW ONE Stop: 02/28/23 15:50 Last Admin: 02/28/23 15:58 Dose: 0.5 inch Documented By: Nitroglycerin (Nitroglycerin 2% Ointment 30gm Tube) 0.5 inch EXT Q6 REJI Stop: 03/30/23 19:49 Last Admin: 03/02/23 14:02 Dose: Not Given Documented By: Admin: 03/02/23 08:04 Dose: 0.5 inch Documented By: Admin: 03/02/23 00:14 Dose: 0.5 inch Documented By: Admin: 03/01/23 18:04 Dose: 0.5 inch Documented By: Admin: 03/01/23 12:12 Dose: 0.5 inch Documented By: Admin: 03/01/23 05:41 Dose: 0.5 inch Documented By: Admin: 02/28/23 23:26 Dose: 0.5 inch Documented By: Admin: 02/28/23 20:19 Dose: 0.5 inch Documented By: GEE Nitroglycerin (Nitroglycerin Sl 0.4 Mg/Tab Tab) 0.4 mg SL NOW STA Stop: 03/02/23 06:12 Last Admin: 03/02/23 06:23 Dose: 0.4 mg Documented By: KARLI Nitroglycerin (Nitroglycerin Sl 0.4 Mg/Tab Tab) 0.4 mg SL Q5M PRN PRN Reason: Chest Pain Stop: 04/01/23 06:10 Last Admin: 03/02/23 19:45 Dose: 0.4 mg Documented By: KARLI Nitroglycerin (Nitroglycerin 0.4 Mg/Hr Patch) 1 patch TD QAM REJI Stop: 04/02/23 08:59 Last Admin: 03/03/23 07:45 Dose: 1 patch Documented By: KENNEY Nitroglycerin/Dextrose (Nitroglycerin/D5w 100mcg/Ml 20ml Syr) Confirm Administered Dose 2,000 mcg .ROUTE .STK-MED ONE Stop: 03/02/23 13:07 Last Admin: 03/02/23 13:41 Dose: 2,000 mcg Documented By: [id number] Pantoprazole Sodium (Pantoprazole 40 Mg Tab) 40 mg PO BID REJI Stop: 03/30/23 20:59 Last Admin: 03/03/23 07:45 Dose: 40 mg Documented By: Admin: 03/02/23 20:22 Dose: 40 mg Documented By: Admin: 03/02/23 08:01 Dose: 40 mg Documented By: Admin: 03/01/23 21:15 Dose: 40 mg Documented By: Admin: 03/01/23 08:46 Dose: 40 mg Documented By: Admin: 02/28/23 20:57 Dose: 40 mg Documented By: GEE Potassium Chloride (Potassium Chloride Crtab 20 Meq Tabcr) 40 meq PO NOW STA Stop: 03/02/23 06:08 Last Admin: 03/02/23 06:38 Dose: 40 meq Documented By: KARLI Potassium Chloride (Potassium Chloride Crtab 20 Meq Tabcr) 60 meq PO NOW STA Stop: 03/02/23 08:35 Last Admin: 03/02/23 08:59 Dose: Not Given Documented By: KENNEY Spironolactone (Spironolactone 25 Mg Tab) 25 mg PO MoWeFr@0900 REJI Stop: 03/31/23 08:59 Last Admin: 03/03/23 07:45 Dose: 25 mg Documented By: Admin: 03/01/23 08:47 Dose: 25 mg Documented By: PHYLLIS Trazodone HCl (Trazodone Hcl 100 Mg Tab) 200 mg PO HS REJI Stop: 03/30/23 20:59 Last Admin: 03/02/23 20:23 Dose: 200 mg Documented By: Admin: 03/01/23 21:15 Dose: 200 mg Documented By: Admin: 02/28/23 20:56 Dose: 200 mg Documented By: GEE Warfarin Sodium (Warfarin Sod 7.5 Mg Tab) 7.5 mg PO NOW STA Stop: 02/28/23 19:04 Last Admin: 02/28/23 21:47 Dose: 7.5 mg Documented By: KARLI Warfarin Sodium (Warfarin Sod 5 Mg Tab) 5 mg PO DAILY@1600 REJI Stop: 04/01/23 17:14 Last Admin: 03/02/23 18:05 Dose: 5 mg Documented By: AM Imaging Data Radiologist's Impression: Chest X-Ray 02/28/23 14:58 XR chest 1V portable CLINICAL HISTORY: Chest pain, nonspecific TECHNIQUE: Single frontal radiograph of the chest was obtained. Comparison: None available at the time of this dictation. FINDINGS: Posterior fixation hardware is seen in the thoracolumbar spine. Old healed rib fractures are noted. The cardiomediastinal silhouette is stable. The lungs are clear. No evidence of pleural effusion or pneumothorax. IMPRESSION: No acute chest disease. ACT 112: Negative or not required by law. Electronically signed by: Jared Jung M.D. 02/28/2023 3:22 PM Discharge Plan Visit Data Chief Complaint: Chest Pain Stated Complaint: CHEST PAIN ED Provider: Lesa Curtis Discharge Problem: Atypical chest pain, CAD (coronary artery disease) Patient Disposition: Admitted As Inpatient Discharge Instructions Interventions: ED Discharge Assessment Last Done: 02/28/23 19:26
[2023-02-28] MEDS ORDERED: BUTALBITAL/ACETAMIN/CAFFEINE TAB PO PRN (20:12)
[2023-02-28] MEDS ORDERED: RIZATRIPTAN BENZOATE 10 MG TAB PO PRN (20:12)
[2023-02-28] MEDS ORDERED: PROMETHAZINE HCL 25 MG TAB PO PRN (20:12)
[2023-02-28] MEDS ORDERED: HYDROMORPHONE INJ SCH (20:15)
[2023-02-28] MEDS: NITROGLYCERIN 2% OINTMENT 30GM TUBE EXT SCH ×2 (20:19→23:26)
[2023-02-28] MEDS: HYDROcodone/ACETAMINOPHEN 10/325 TAB PO PRN (20:44)
[2023-02-28] MEDS ORDERED: HYDROmorphone PAIN PUMP IT SCH (20:45)
[2023-02-28] MEDS: traZODone HCL 100 MG TAB PO SCH (20:56)
[2023-02-28] MEDS: busPIRone 5 MG TAB PO SCH (20:56)
[2023-02-28] MEDS: PANTOprazole 40 MG TAB PO SCH (20:57)
[2023-03-01 04:15] LABS: Hematocrit (blood only) 40.1 % (37.0-47.0); Hemoglobin 13.2 g/dl (12.0-16.0); Mean Corpuscular Hemoglobin 32.8 pg (25.0-34.0); Mean Corpuscular Hgb Conc 32.9 g/dL (32.0-36.0); Mean Corpuscular Volume 99.5 fL (80.0-100.0); Mean Platelet Volume 10.6 fL (9.4-12.4); Platelet Count 146 K/uL (130-400); RDW Coefficient of Variation 14.4 % (11.5-14.5); RDW Standard Deviation 53.2 fL (36.4-46.3); Red Blood Count 4.03 M/uL (4.20-5.40); White Blood Count 6.89 K/ul (4.8-10.8)
[2023-03-01 04:29] LABS: BUN Creatinine Ratio 30.4 (10-20); Calcium 8.4 mg/dl (8.6-10.3); Chol HDL Ratio 2.3 (0-5); Creatinine Clr Calc Pharmacy 61.6 ml/min; Est GFR (African American) 103.5 ml/min; Est GFR (Non-African American) 89.3 ml/min; Potassium 3.5 mmol/L (3.5-5.1)
[2023-03-01 04:35] LABS: Troponin I High Sensitivity 9.1 pg/ml (0-14)
[2023-03-01 04:42] LABS: INR 1.8 (0.9-1.1); Prothrombin Time 18.9 Seconds (9.0-12.0)
[2023-03-01] MEDS: NITROGLYCERIN 2% OINTMENT 30GM TUBE EXT SCH ×3 (05:41→18:04)
[2023-03-01] MEDS: HYDROcodone/ACETAMINOPHEN 10/325 TAB PO PRN ×3 (06:14→18:03)
[2023-03-01 07:25] LABS: Estimated Average Glucose 111 mg/dl; Hemoglobin A1C 5.5 % (4.5-5.6)
[2023-03-01] MEDS: FUROSEMIDE 20 MG TAB PO SCH (08:46)
[2023-03-01] MEDS: METOPROLOL SUCC 25MG EXT REL TAB PO SCH (08:46)
[2023-03-01] MEDS: PANTOprazole 40 MG TAB PO SCH ×2 (08:46→21:15)
[2023-03-01] MEDS: busPIRone 5 MG TAB PO SCH ×2 (08:46→21:15)
[2023-03-01] MEDS: ATORVASTATIN 10 MG TAB PO SCH (08:47)
[2023-03-01] MEDS: ISOSORBIDE MONO EXTENDED REL 30 MG TABCR PO SCH (08:47)
[2023-03-01] MEDS: SPIRONOLACTONE 25 MG TAB PO SCH (08:47)
[2023-03-01] MEDS ORDERED: PANTOprazole 40 MG TAB PO SCH (09:00)
--- NOTE | 2023-03-01 09:39 | Hospitalist Progress Note ---
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 Chest Pain Has history of recent admission earlier in February for chest pain with ACS rule out, resumed on lasix and stated on aldactone 2/2 volume overload, directed to follow up in [facility] . Multiple increased episodes of chest pain now in the last week on aspirin, consistent with a possible unstable angina picture in this active smoker. No acute EKG changes HS trop negative Monitor on tele, trend troponin, cont nitro paste, per cardiology we are considering a heart catheterization for further investigation into this pain. Atrial fibrillation Chronic stable. Continue Toprol INR subtherapeutic but improved from 1.4 to 1.8 today. Holding warfarin and started on heparin drip to bridge to procedure. HTN Chronic stable. Continue diuretics, Toprol, Imdur and topical nitro HLD Chronic stable. Continue atorvastatin Chronic Back Pain Back stimulator in place with hydromorphone pump recently filled and hydrocodone-acetaminophen 10-325 PRN for breakthrough pain; continue home regimen Notably she reports speaking with her pain provider who states he didn't think her medication was the cause of her vomiting last admission. She would like to stick to hydromorphone the next time it gets refilled. Uses walker at baseline Tobacco Use Smokes 1/2 ppd since she was a teenager, ~60 pack year hx. Cessation encouraged Migraine Chronic stable, PRN rizatriptan Insomnia Continue trazodone HS Depression: Continue BuSpar DVT Ppx: heparin drip Code status: FULL Dispo: telemetry I spent a total [id number] coordinating, documenting, and providing care for this patient excluding time spent in the performance of separately billed services [facility] Admission and Anticipated Discharge Date Admission Date: February 28, 2023 Subjective 77 yo F with chronic pain presents with acute substernal chest pressure that began yesterday when she was sitting in her home. She denies increased pain with exertion, but did have another episode of this pressure today that was relieved with narcotics and nitro. Currently no pain and denies shortness of breath. Reports having gotten a full night of sleep last night and is feeling rested. Physical Exam Physical Exam: CONSTITUTIONAL: thin, frail, vitals as above, generally well-appearing, NAD EYES: normal conjunctivae, no scleral icterus ENT: external ear and nose normal, oropharynx clear, MMM NECK: trachea midline RESPIRATORY: clear to auscultation bilaterally, no crackles, rales or wheezes, normal respiratory effort CARDIOVASCULAR: regular rate and rhythm, S1 and 2 heard without murmurs, gallops or rubs, no JVD, no peripheral edema CHEST: inspection of chest was normal GASTROINTESTINAL: soft, nontender, ND, no guarding MUSCULOSKELETAL: strength 5/5 throughout, head is normocephalic and atraumatic SKIN: warm and dry NEUROLOGIC: CN 2-12 grossly intact, no sensory deficit, normal cognition, normal speech, no tremor PSYCHIATRIC: alert cooperative and oriented to person, place and time. Euthymic mood, makes good eye contact, language grossly intact, recent and remote memory grossly intact. Results & Data Results & Data Vital Signs (Past 12 Hours) Vital Signs Temp Pulse Pulse Resp BP BP Pulse Ox 03/01/23 09:21 03/01/23 07:43 36.6 C 64 18 107/66 95 03/01/23 05:40 64 128/71 03/01/23 03:39 36.5 C 62 16 129/73 92 02/28/23 23:02 57 L 02/28/23 23:25 37.2 C 62 16 122/65 99 02/28/23 21:52 81 O2 Del Method 03/01/23 09:21 Room Air 03/01/23 07:43 Room Air 03/01/23 05:40 03/01/23 03:39 Room Air 02/28/23 23:02 02/28/23 23:25 Room Air 02/28/23 21:52 Laboratory Results Short CBC 02/28/23 03/01/23 Range/Units 15:25 03:36 WBC 10.05 6.89 (4.8-10.8) K/ul Hgb 15.7 13.2 (12.0-16.0) g/dl Hct 48.3 H 40.1 (37.0-47.0) % Plt Count 168 146 (130-400) K/uL BMP 02/28/23 03/01/23 15:25 03:35 Sodium 138 139 Potassium 3.7 3.5 Chloride 104 108 H Carbon Dioxide 28 29 BUN 20 17 Creatinine 0.68 0.56 L Glucose 96 82 Calcium 9.3 8.4 L Liver Function 02/28/23 Range/Units 15:25 Total Bilirubin 0.8 (0.2-1.0) mg/dl AST 14 (13-39) U/L ALT 7 (7-52) U/L Alkaline Phosphatase 89 (34-104) U/L Albumin 4.1 (3.4-5.0) gm/dl Medications Administered Current Inpatient Medications Acetaminophen (Acetaminophen 325 Mg Tab) 650 mg PO Q4H PRN PRN Reason: Pain or Fever Stop: 03/30/23 19:49 Acetaminophen/Butalbital/Caffeine (Butalbital/Acetamin/Caffeine Tab) 1 tab PO TID PRN PRN Reason: Migraine Headache Stop: 03/30/23 20:11 Hydrocodone Bitart/Acetaminophen (Hydrocodone/Acetaminophen 10/325 Tab) 1 tab PO Q6 PRN PRN Reason: Pain Stop: 03/14/23 20:11 Last Admin: 03/01/23 06:14 Dose: 1 tab Atorvastatin Calcium (Atorvastatin 10 Mg Tab) 10 mg PO QAM [facility] Stop: 03/31/23 08:59 Last Admin: 03/01/23 08:47 Dose: 10 mg Buspirone HCl (Buspirone 5 Mg Tab) 5 mg PO BID [facility] Stop: 03/30/23 20:59 Last Admin: 03/01/23 08:46 Dose: 5 mg Calcium/Vitamin D (Calcium 600mg + Vit D 400 Iu Tab) 1 tab PO DAILY [facility] Stop: 03/31/23 08:59 Furosemide (Furosemide 20 Mg Tab) 20 mg PO MoTuWeThFr@0900 [facility] Stop: 03/31/23 08:59 Last Admin: 03/01/23 08:46 Dose: 20 mg Hydromorphone HCl (Hydromorphone Pain Pump) 1 pump IT UD [facility] Stop: 03/30/23 20:44 Isosorbide Mononitrate (Isosorbide Frio Extended Rel 30 Mg Tabcr) 30 mg PO QAM [facility] Stop: 03/31/23 08:59 Last Admin: 03/01/23 08:47 Dose: 30 mg Metoprolol Succinate (Metoprolol Succ 25mg Ext Rel Tab) 25 mg PO QAM [facility] Stop: 03/31/23 08:59 Last Admin: 03/01/23 08:46 Dose: 25 mg Multivitamins ([facility]ivitamin Tab) [facility] Stop: 03/31/23 08:59 Nitroglycerin (Nitroglycerin 2% Ointment 30gm Tube) 0.5 inch EXT Q6 [facility] Stop: 03/30/23 19:49 Last Admin: 03/01/23 05:41 Dose: 0.5 inch Ondansetron HCl (Ondansetron Inj 2 Mg/Ml 2 Ml Vial) 4 mg IV Q6H PRN PRN Reason: Nausea Stop: 03/30/23 19:49 Pantoprazole Sodium (Pantoprazole 40 Mg Tab) 40 mg PO BID [facility] Stop: 03/30/23 20:59 Last Admin: 03/01/23 08:46 Dose: 40 mg Polyethylene Glycol (Polyethylene (Miralax) 17 Gm Pack) 17 gm PO DAILY PRN PRN Reason: Constipation Stop: 03/30/23 19:49 Promethazine HCl (Promethazine Hcl 25 Mg Tab) 12.5 mg PO Q6H PRN PRN Reason: Nausea Stop: 03/30/23 20:11 Rizatriptan Benzoate (Rizatriptan Benzoate 10 Mg Tab) 10 mg PO UD PRN PRN Reason: Migraine Headache Stop: 03/30/23 20:11 Spironolactone (Spironolactone 25 Mg Tab) 25 mg PO MoWeFr@0900 [facility] Stop: 03/31/23 08:59 Last Admin: 03/01/23 08:47 Dose: 25 mg Trazodone HCl (Trazodone Hcl 100 Mg Tab) 200 mg PO HS [facility] Stop: 03/30/23 20:59 Last Admin: 02/28/23 20:56 Dose: 200 mg Warfarin Sodium (Warfarin Sod 5 Mg Tab) 5 mg PO DAILY@1600 [facility] Stop: 03/31/23 15:59 (5) Chronic back pain Back pain laterality: unspecified Back pain location: thoracic back pain Qualified Code(s): M54.6 - Pain in thoracic spine; G89.29 - Other chronic pain
--- NOTE | 2023-03-01 10:29 | Cardiology Consultation ---
Date of Consultation March 01, 2023 Assessment & Plan (1) Chest pain: (2) Chronic heart failure with preserved ejection fraction (HFpEF): (3) Valvular heart disease: (4) Carbon monoxide poisoning: (5) Paroxysmal atrial fibrillation: Plan (1) Chest pain: -As was noted at the time of her hospital stay in January, it is difficult to distinguish between angina, and exacerbation of her chronic pain syndrome that affects her back as well as the rest of her body and she has a great deal of difficulty being comfortable. EKG x2 last night overnight without ischemic changes, high-sensitivity troponin negative x 5 measurements thus far this hospital stay. -Patient had undergone Lexiscan stress test performed by the undersigned as an inpatient in November,. During the test she had symptoms of chest pressure, and equivocal EKG changes with normal perfusion. -At this time, we will advance patient's diet. Her INR is 1.8. We will hold Coumadin, and started heparin infusion as bridge therapy pending further assessment. -Further ischemic work-up may be indicated at this hospital stay. (2) Chronic heart failure with preserved ejection fraction (HFpEF): The patient is known to have mild crackles on exam. Chest x-ray performed y esterday and again today improved compared to 2 weeks ago with regards to previous finding of small left pleural effusion. -Continue outpatient diuretic therapy. -Echocardiogram performed in January with results as noted. No need to repeat at present. (3) Valvular heart disease: -Patient with history of moderate to severe mitral regurgitation. -Mime status appears relatively stable at present. (4) Carbon monoxide poisoning: -At time of hospital stay earlier this month, there was concern of car monoxide poisoning. Oxygen saturations this hospital stay. (5) Paroxysmal atrial fibrillation: -Patient remains in sinus rhythm. She had previously been on Eliquis. When hospitalized with concerns of gastrointestinal bleeding in January, Eliquis discontinued and ultimately transition to Coumadin due to cost concerns. -GI bleed work-up negative at that time. Hemoglobin stable. -Continue outpatient metoprolol and bridge pending determination if invasive procedure indicated this hospital stay. History of Present Illness Attending Physician: Shivani Roman DO History of Present Illness Alexia Campos is a 77 year old female seen in cardiology consultation per the request of Alix Hooper PA-C for the evaluation of chest pain and pressure. Noted recurrent symptoms at rest yesterday while sitting in a chair. Currently patient feels well and is resting comfortably. Topical nitroglycerin is in place. Patient with evaluations for chest pain symptoms in the hospital in June, November, January, and most recently on 02/17/23. Most recently was assessed an it was felt symptoms were related to volume overload and she received diuretic therapy and was discharged. Patient sleeps in a recliner as she is unable to get comfortable in her home hospital bed. She has a history of thoracic spice surgery and chronic pain syndrome. History includes: 1. Paroxysmal atrial fibrillation with acute hospitalization March 04, 2022 with rapid response (1st onset). Chads Vasc 2 score 4 Repeat ER visit May 15, 2022 or with atrial fibrillation with rapid response with spontaneous conversion 2. Hypertension 3. Mitral insufficiency 4. Chronic tobacco use/chronic obstructive lung disease 5. CP with equivocal nuclear stress test in November 2022 - Normal imaging, with equivocal EKG changes during stress testing. mild chest pain with Lexiscan. Medical management preferred by patient. Preserved EF by echo Allergies Allergy/AdvReac Type Severity Reaction Status Date / Time chlorhexidine Allergy Mild Rash Verified 02/10/23 11:11 fluconazole [From Diflucan] AdvReac Severe Diarrhea Verified 02/10/23 11:11 (with oral) hydrochlorothiazide AdvReac Intermediate Pancreatiti Verified 02/10/23 11:11 s ondansetron [From Zofran] AdvReac Intermediate Headaches Verified 02/10/23 11:11 Home Medications Medication Instructions Recorded Confirmed Type multivitamin 1 tab PO QAM 02/05/20 02/28/23 History omeprazole 20 mg tablet,delayed 20 mg PO QPM 01/20/22 02/28/23 History release rizatriptan 10 mg tablet 10 mg PO UD PRN Migraine Headache 01/20/22 02/28/23 History trazodone 100 mg tablet 200 mg PO HS 01/20/22 02/28/23 History hydrocodone 10 mg-acetaminophen 1 tab PO Q6 PRN Pain 04/22/22 02/28/23 History 325 mg tablet promethazine 12.5 mg tablet 12.5 mg PO Q6H PRN Nausea 06/08/22 02/28/23 History atorvastatin 10 mg tablet 10 mg PO QAM #30 tabs 11/10/22 02/28/23 Rx isosorbide mononitrate 30 mg 30 mg PO QAM #30 tabs 11/10/22 02/28/23 Rx tablet,extended release 24 hr Hydromorphone Pain Pump 0 mg INJ DIRECTED 01/31/23 02/28/23 History [id number] 1 tab PO TID PRN Migraine Headache 01/31/23 02/28/23 History 50 mg-325 mg-40 mg tablet calcium carbonate 600 mg-vitamin 1 tab PO DAILY 01/31/23 02/28/23 History D3 10 mcg (400 unit) tablet (Calcium 600 + D(3)) furosemide 20 mg tablet (Lasix) 20 mg PO [id number] 01/31/23 02/28/23 History metoprolol succinate 25 mg 25 mg PO QAM 01/31/23 02/28/23 History tablet,extended release 24 hr spironolactone 25 mg tablet 25 mg PO 3XWK 01/31/23 02/28/23 History pantoprazole 40 mg tablet,delayed 40 mg PO DAILY #10 tabs 02/05/23 02/28/23 Rx release (Protonix) warfarin 5 mg tablet 5 mg PO DAILY #2 tabs 02/05/23 02/28/23 Rx buspirone 5 mg tablet 5 mg PO BID 02/10/23 02/28/23 History nitroglycerin 0.4 mg sublingual 0.4 mg sublingual Q5M PRN chest 02/18/23 02/28/23 Rx tablet pain #30 tabs Patient History Medical History Atrial fibrillation CAD (coronary artery disease) Depression Encounter for pre-operative examination Fracture, tibia, with fibula Gastric ulcer Gastritis "Getting under control" GERD (gastroesophageal reflux disease) Hiatal hernia History of blood transfusion Pt reports post-op after hip surgery and lumbar surgery History of syncope Previously followed with cardiology, per Dr Lockhart ([facility]), "syncope in the setting of polypharmacy for severe low back pain." Last seen by cardio 11/2018, to follow up PRN per cardio. HLD (hyperlipidemia) HTN (hypertension) Migraine MVP (mitral valve prolapse) Not noted on 03/2016 echo (Mild MR was present) Opiate dependence Pancreatitis Approximately 2018 Postlaminectomy syndrome of lumbosacral region Postlaminectomy syndrome of thoracic region Recurrent UTI Surgical History H/O spinal fusion Extensive [id number] (x2 lumbar fusions) History of anesthesia reaction "severe hypotension" per patient following second back surgery. ([facility] 2017). Review of records shows documentation from anesthesia that hypotension was treated in PACU, BP in post-anesthetic evaluation 92/51. Subsequent intrathecal pain pump (03/19/20): Grade view 1, MAC#3, ETT 6.5 at [facility] without issue noted per post-op anesthesia progress note/discharge summary. History of appendectomy History of cardiac cath Approximately 1994 > no stents History of cataract surgery R/L History of cholecystectomy History of colonoscopy History of dilatation and curettage History of esophagogastroduodenoscopy (EGD) History of hip surgery Right hip History of open reduction and internal fixation (ORIF) procedure Left hip S/P hardware removal Left hip x2 S/P CECILIA-BSO Family History Mother Family history of diabetes mellitus Grandmother (Maternal) Family history of diabetes mellitus Grandmother (Paternal) Family history of diabetes mellitus Other No family history of adverse response to anesthesia Social History Smoking Status: Current every day smoker Tobacco Type: Cigarettes packs per day: 0.5; Cigarettes Per Day: 10; Second Hand Exposure: No; Do You Dip or Chew Tobacco: No; Tobacco Cessation Education Requested by Patient: No Hx Alcohol Use: No Hx Substance Use: No Preferred Language: Taiwanese Communication Ability: Effective Visual Impairment: No Limitations Hearing Ability: Normal Fire Watchman Required: No Beliefs That Will Affect Care: None marital status: Current Living Situation: Spouse Current Living Situation Comment: w/ current occupational status: retired Other Information That Helps Us Care for You: No Feels Safe at Home: Yes Safety Concerns: Feels Safe At This Time Assistive Devices: Walker Review of Systems Review of Systems: All systems reviewed & are unremarkable except as noted in HPI & below Physical Exam Constitutional: WD/WN, vitals as above Respiratory: no labored breathing and no retractions Auscultation: + crackles (mild crackles bilaterally at the bases ); no diminished lung sounds and no rhonchi Cardiovascular: Rate/Rhythm: regular rate and regular rhythm Heart Sounds: + murmur (1/6 SM ) Extremities: no edema Gastrointestinal (Abdomen): normal bowel sounds, soft, nontender, no hepatosplenomegaly Skin: skin wound on back, that is dressed Neurologic: PERRL, EOMI, accommodation nl, no face palsy, no dysarthria Results & Data Vital Signs (Past 12 Hours) Vital Signs Temp Pulse Pulse Resp BP BP Pulse Ox 03/01/23 09:21 03/01/23 07:43 36.6 C 64 18 107/66 95 03/01/23 05:40 64 128/71 03/01/23 03:39 36.5 C 62 16 129/73 92 02/28/23 23:02 57 L 02/28/23 23:25 37.2 C 62 16 122/65 99 O2 Del Method 03/01/23 09:21 Room Air 03/01/23 07:43 Room Air 03/01/23 05:40 03/01/23 03:39 Room Air 02/28/23 23:02 02/28/23 23:25 Room Air Laboratory Results Cardiac Enzymes 02/28/23 02/28/23 03/01/23 Range/Units 15:25 21:36 03:35 AST 14 (13-39) U/L Troponin I High Sens 6.7 7.8 9.1 (0-14) pg/ml Coagulation 02/28/23 03/01/23 Range/Units 15:25 03:35 PT 14.7 H 18.9 H (9.0-12.0) Seconds APTT 35.0 H (21.0-31.0) Seconds Lipids 03/01/23 Range/Units 03:35 Triglycerides 84 (0-150) mg/dl Cholesterol 89 (0-200) mg/dl HDL Cholesterol 39 mg/dl Cholesterol/HDL Ratio 2.3 (0-5) LDL 33 mg/dl CBC 02/28/23 03/01/23 Range/Units 15:25 03:36 WBC 10.05 6.89 (4.8-10.8) K/ul RBC 4.82 4.03 L (4.20-5.40) M/uL Hgb 15.7 13.2 (12.0-16.0) g/dl Hct 48.3 H 40.1 (37.0-47.0) % Plt Count 168 146 (130-400) K/uL Neut # (Auto) 8.51 H (1.40-6.50) K/uL Lymph # (Auto) 0.75 L (1.20-3.40) K/uL [place]ill # (Auto) 0.65 H (0.11-0.59) K/uL Eos # (Auto) 0.01 (0.00-0.50) K/uL Baso # (Auto) 0.05 (0.00-0.20) K/uL Comprehensive Metabolic Panel 02/28/23 03/01/23 Range/Units 15:25 03:35 Sodium 138 139 (136-145) mmol/L Potassium 3.7 3.5 (3.5-5.1) mmol/L Chloride 104 108 H (98-107) mmol/L Carbon Dioxide 28 29 (21-32) mmol/L BUN 20 17 (6-23) mg/dl Creatinine 0.68 0.56 L (0.6-1.2) mg/dl Glucose 96 82 (70-99(Fasting)) mg/dl Calcium 9.3 8.4 L (8.6-10.3) mg/dl AST 14 (13-39) U/L ALT 7 (7-52) U/L Alkaline Phosphatase 89 (34-104) U/L Total Protein 6.7 (6.0-8.3) gm/dl Albumin 4.1 (3.4-5.0) gm/dl Intake and Output 02/28/23 03/01/23 03/01/23 22:59 06:59 14:59 Other: # Unmeasured Voids 1 2 Weight 47.1 kg 47.1 kg Weight Measurement Method Standing Scale Patient Weight 03/02/23 06:59 Weight 47.1 kg Diagnostic Findings EKG performed 02/28/2023 interpreted independently: Sinus rhythm at 66 bpm, poor R wave progression, unchanged compared to previous tracing. Repeat tracing this morning at 6:06 AM, normal sinus rhythm 50 bpm, poor R wave progression, normal ST segments. ttecho 02/02/23: mild concentric LVH , normal wall motion, LVEF 60-65% , moderate to severe early systolic MR (4) Carbon monoxide poisoning Encounter type: initial encounter Injury intent: accidental or unintentional Qualified Code(s): T58.91XA - Toxic effect of carbon monoxide from unspecified source, accidental (unintentional), initial encounter
[2023-03-01] MEDS: CALCIUM 600MG + VIT D 400 IU TAB PO SCH (12:06)
[2023-03-01] MEDS: MULTIVITAMIN TAB PO SCH (12:07)
[2023-03-01] MEDS: Heparin IV Adult Wt-Based Standard *NO* Bolus Protocol IV SCH ×3 (12:26→19:02)
[2023-03-01] MEDS: HEPARIN 25000 UNIT/500 ML D5W IV ONE ×2 (12:26→12:32)
[2023-03-01] MEDS: HEPARIN SODIUM/DEXTROSE 25,000 UNITS/500 ML BAG IV SCH (12:32)
[2023-03-01] MEDS ORDERED: WARFARIN SOD 5 MG TAB PO SCH (16:00)
[2023-03-01 20:03] LABS: Partial Thromboplastin Ratio 2.1
[2023-03-01 20:10] LABS: Partial Thromboplastin Time 60.6 Seconds (21.0-31.0)
[2023-03-01] MEDS: traZODone HCL 100 MG TAB PO SCH (21:15)
[2023-03-02] MEDS: NITROGLYCERIN 2% OINTMENT 30GM TUBE EXT SCH ×3 (00:14→14:02)
[2023-03-02] MEDS: HYDROcodone/ACETAMINOPHEN 10/325 TAB PO PRN ×3 (00:44→17:49)
[2023-03-02 05:03] LABS: Potassium 3.3 mmol/L (3.5-5.1)
[2023-03-02 05:04] LABS: Calcium 8.1 mg/dl (8.6-10.3); Creatinine Clr Calc Pharmacy 57.5 ml/min; Est GFR (African American) 101.2 ml/min; Est GFR (Non-African American) 87.3 ml/min
[2023-03-02 05:39] LABS: INR 2.3 (0.9-1.1); Partial Thromboplastin Ratio 4.7; Prothrombin Time 23.6 Seconds (9.0-12.0)
[2023-03-02 05:42] LABS: Partial Thromboplastin Time 131.5 Seconds (21.0-31.0)
[2023-03-02] MEDS ORDERED: POTASSIUM CHLORIDE CRTAB 20 MEQ TABCR PO STA ×2 (06:07→08:34)
[2023-03-02] MEDS ORDERED: ALBUMIN 25% 25 GM/100 ML VIAL IV ONE (06:09)
[2023-03-02] MEDS ORDERED: NITROGLYCERIN SL 0.4 MG/TAB TAB SL STA (06:11)
[2023-03-02] MEDS ORDERED: NITROGLYCERIN SL 0.4 MG/TAB TAB SL PRN (06:11)
[2023-03-02] MEDS ORDERED: MAGNESIUM SULFATE / D5W 1 GM/100 ML BAG IV ONE (06:30)
[2023-03-02 06:40] LABS: Troponin I High Sensitivity 6.6 pg/ml (0-14)
[2023-03-02] MEDS: ATORVASTATIN 10 MG TAB PO SCH (08:01)
[2023-03-02] MEDS: busPIRone 5 MG TAB PO SCH ×2 (08:01→20:22)
[2023-03-02] MEDS: PANTOprazole 40 MG TAB PO SCH ×2 (08:01→20:22)
[2023-03-02] MEDS: MULTIVITAMIN TAB PO SCH (08:01)
[2023-03-02] MEDS: ISOSORBIDE MONO EXTENDED REL 30 MG TABCR PO SCH (08:02)
[2023-03-02] MEDS: CALCIUM 600MG + VIT D 400 IU TAB PO SCH (08:02)
[2023-03-02] MEDS: METOPROLOL SUCC 25MG EXT REL TAB PO SCH (08:02)
[2023-03-02] MEDS: FUROSEMIDE 20 MG TAB PO SCH (08:02)
--- NOTE | 2023-03-02 08:34 | Hospitalist Progress Note ---
Date of Service March 02, 2023 Assessment & Plan (1) Chest pain: (2) Valvular heart disease: (3) Chronic heart failure with preserved ejection fraction (HFpEF): (4) Smoker: (5) Chronic back pain: (6) HLD (hyperlipidemia): (7) Opiate dependence: (8) HTN (hypertension): (9) CAD (coronary artery disease): (10) roasterman (current) use of anticoagulants: (11) Paroxysmal atrial fibrillation: (12) Depression: Plan This is a 77yo F with a PMH of atrial fibrillation on coumadin, CAD, chronic back pain with stimulator in place, opioid dependence, h/o pleural effusion, HTN, HLD, current smoker, migraines, insomnia, depression and other medical problems listed below who returns to the ED with chest pain. Chest Pain Has history of recent admission earlier in February for chest pain with ACS rule out, resumed on lasix and stated on aldactone 2/2 volume overload, directed to follow up in cards clinic . Multiple increased episodes of chest pain now in the last week on aspirin, consistent with a possible unstable angina picture in this active smoker. No acute EKG changes HS trop negative Monitor on tele, trend troponin, cont nitro paste Cardiac cath today with nonobstructive disease, recommend cont with medical managment. Pt is requesting the nitro paste at home. She notably has used SL nitroglycerin excessively in the last two weeks. Defer to cardiology. Cont low dose atorvastatin with recent LDL 33. Cont nitro paste, Imdur, Toprol XL. Atrial fibrillation Chronic stable. Continue Toprol INR subtherapeutic but improved from 1.4 to 1.8 today. Holding warfarin and started on heparin drip to bridge to procedure. Restarted warfarin this afternoon, trend INR. Cont heparin drip for now. HTN Chronic stable. Continue diuretics, Toprol, Imdur and topical nitro HLD Chronic stable. Continue atorvastatin Chronic Back Pain Back stimulator in place with hydromorphone pump recently filled and hydrocodone-acetaminophen 10-325 PRN for breakthrough pain; continue home regimen Notably she reports speaking with her pain provider who states he didn't think her medication was the cause of her vomiting last admission. She would like to stick to hydromorphone the next time it gets refilled. Uses walker at baseline Tobacco Use Smokes 1/2 ppd since she was a teenager, ~60 pack year hx. Cessation encouraged Migraine Chronic stable, PRN rizatriptan Insomnia Continue trazodone HS Depression: Continue BuSpar DVT Ppx: heparin drip Code status: FULL Dispo: telemetry I spent a total [id number] coordinating, documenting, and providing care for this patient excluding time spent in the performance of separately billed services Shivani Roman DO [facility] Hospitalist Admission and Anticipated Discharge Date Admission Date: March 01, 2023 Subjective 77 yo F smoker with chronic pain presents with acute substernal chest pressure. She updates her history today stating that she went through 25-30 SL nitro tabs to control her chest pain over the past two weeks. She feels the nitro paste with SL nitro for pain is helping control her pain, and is wondering if she can use this at home, also instead of the Imdur. Cardiac cath today, radial approach, revealed CAD without need for PCI. Recommendation was to continue with medical therapy. Her and son were at the bedside and all questions were reviewed. She was again encouraged to stop smoking. Physical Exam Physical Exam: CONSTITUTIONAL: thin, frail, vitals as above, generally well-appearing, NAD EYES: normal conjunctivae, no scleral icterus ENT: external ear and nose normal, oropharynx clear, MMM NECK: trachea midline RESPIRATORY: clear to auscultation bilaterally, no crackles, rales or wheezes, normal respiratory effort CARDIOVASCULAR: regular rate and rhythm, S1 and 2 heard without murmurs, gallops or rubs, no JVD, no peripheral edema CHEST: inspection of chest was normal GASTROINTESTINAL: soft, nontender, ND, no guarding MUSCULOSKELETAL: strength 5/5 throughout, head is normocephalic and atraumatic SKIN: warm and dry NEUROLOGIC: CN 2-12 grossly intact, no sensory deficit, normal cognition, normal speech, no tremor PSYCHIATRIC: alert cooperative and oriented to person, place and time. Eut hymic mood, makes good eye contact, language grossly intact, recent and remote memory grossly intact. Results & Data Results & Data Vital Signs (Past 12 Hours) Vital Signs Temp Pulse Pulse Pulse Resp BP BP 03/02/23 08:17 36.5 C 54 L 16 100/63 03/02/23 06:55 107/68 03/02/23 06:30 94/56 L 10/24/23 06:00 71 125/75 03/02/23 03:22 36.4 C L 54 L 16 106/67 03/01/23 22:50 52 L 03/02/23 00:05 66 03/01/23 23:28 36.7 C 51 L 15 105/59 L Pulse Ox O2 Del Method 03/02/23 08:17 94 Room Air 03/02/23 06:55 03/02/23 06:30 03/02/23 06:00 03/02/23 03:22 95 Room Air 03/01/23 22:50 03/02/23 00:05 03/01/23 23:28 93 Room Air Laboratory Results BMP 03/02/23 04:01 Sodium 138 Potassium 3.3 L Chloride 106 Carbon Dioxide 29 BUN 15 Creatinine 0.60 Glucose 96 Calcium 8.1 L Medications Administered Current Inpatient Medications Acetaminophen (Acetaminophen 325 Mg Tab) 650 mg PO Q4H PRN PRN Reason: Pain or Fever Stop: 03/30/23 19:49 Acetaminophen/Butalbital/Caffeine (Butalbital/Acetamin/Caffeine Tab) 1 tab PO TID PRN PRN Reason: Migraine Headache Stop: 03/30/23 20:11 Hydrocodone Bitart/Acetaminophen (Hydrocodone/Acetaminophen 10/325 Tab) 1 tab PO Q6 PRN PRN Reason: Pain Stop: 03/14/23 20:11 Last Admin: 03/02/23 06:38 Dose: 1 tab Atorvastatin Calcium (Atorvastatin 10 Mg Tab) 10 mg PO QAM [facility] Stop: 03/31/23 08:59 Last Admin: 03/02/23 08:01 Dose: 10 mg Buspirone HCl (Buspirone 5 Mg Tab) 5 mg PO BID [facility] Stop: 03/30/23 20:59 Last Admin: 03/02/23 08:01 Dose: 5 mg Calcium/Vitamin D (Calcium 600mg + Vit D 400 Iu Tab) 1 tab PO DAILY [facility] Stop: 03/31/23 08:59 Last Admin: 03/02/23 08:02 Dose: 1 tab Furosemide (Furosemide 20 Mg Tab) 20 mg PO MoTuWeThFr@0900 [facility] Stop: 03/31/23 08:59 Last Admin: 03/02/23 08:02 Dose: 20 mg Hydromorphone HCl (Hydromorphone Pain Pump) 1 pump IT UD [facility] Stop: 03/30/23 20:44 Heparin Sodium/Dextrose (Heparin Sodium/Dextrose) 25,000 units in 500 mls @ 13 mls/hr IV .Q24H [facility]; Protocol Stop: 03/31/23 12:29 Last Titration: 03/02/23 08:17 Dose: 650 units/hr, 13 mls/hr Isosorbide Mononitrate (Isosorbide [place] Extended Rel 30 Mg Tabcr) 30 mg PO [facility] Stop: 03/31/23 08:59 Last Admin: 03/02/23 08:02 Dose: 30 mg Metoprolol Succinate (Metoprolol Succ 25mg Ext Rel Tab) 25 mg PO [facility] Stop: 03/31/23 08:59 Last Admin: 03/02/23 08:02 Dose: 25 mg Multivitamins (Multivitamin Tab) 1 tab PO [facility] Stop: 03/31/23 08:59 Last Admin: 03/02/23 08:01 Dose: 1 tab Nitroglycerin (Nitroglycerin 2% Ointment 30gm Tube) 0.5 inch EXT Q6 [facility] Stop: 03/30/23 19:49 Last Admin: 03/02/23 08:04 Dose: 0.5 inch Nitroglycerin (Nitroglycerin Sl 0.4 Mg/Tab Tab) 0.4 mg SL Q5M PRN PRN Reason: Chest Pain Stop: 04/01/23 06:10 Ondansetron HCl (Ondansetron Inj 2 Mg/Ml 2 Ml Vial) 4 mg IV Q6H PRN PRN Reason: Nausea Stop: 03/30/23 19:49 Pantoprazole Sodium (Pantoprazole 40 Mg Tab) 40 mg PO BID [facility] Stop: 03/30/23 20:59 Last Admin: 03/02/23 08:01 Dose: 40 mg Polyethylene Glycol (Polyethylene (Miralax) 17 Gm Pack) 17 gm PO DAILY PRN PRN Reason: Constipation Stop: 03/30/23 19:49 Promethazine HCl (Promethazine Hcl 25 Mg Tab) 12.5 mg PO Q6H PRN PRN Reason: Nausea Stop: 03/30/23 20:11 Rizatriptan Benzoate (Rizatriptan Benzoate 10 Mg Tab) 10 mg PO UD PRN PRN Reason: Migraine Headache Stop: 11/21/23 20:11 Spironolactone (Spironolactone 25 Mg Tab) 25 mg PO MoWeFr@0900 [facility] Stop: 03/31/23 08:59 Last Admin: 03/01/23 08:47 Dose: 25 mg Trazodone HCl (Trazodone Hcl 100 Mg Tab) 200 mg PO [facility] Stop: 03/30/23 20:59 Last Admin: 03/01/23 21:15 Dose: 200 mg (5) Chronic back pain Back pain laterality: unspecified Back pain location: thoracic back pain Qualified Code(s): M54.6 - Pain in thoracic spine; G89.29 - Other chronic pain
[2023-03-02] MEDS ORDERED: HEPARIN (PORCINE) 1000 UNIT/ML 10 ML (CATH LAB USE ONLY) ONE ×2 (13:04→13:54)
[2023-03-02] MEDS ORDERED: MIDAZOLAM HCL 1 MG/ML 2ML VIAL ONE (13:05)
[2023-03-02] MEDS ORDERED: niCARdipine HCL INJ 2.5 MG/ML 10 ML AMP ONE (13:05)
[2023-03-02] MEDS ORDERED: fentaNYL citrate PF 100 MCG/2 ML VIAL ONE (13:05)
[2023-03-02] MEDS ORDERED: NITROGLYCERIN/D5W 100MCG/ML 20ML SYR ONE (13:06)
--- NOTE | 2023-03-02 13:10 | Pre Anesthesia Assessment ---
Date of Service March 02, 2023 Pre Sedation Assessment Vital Signs Temp Pulse Pulse Pulse Resp BP BP 03/02/23 12:54 68 16 116/59 L 03/02/23 11:10 97.5 F L 54 L 22 116/70 03/02/23 09:00 58 L 03/02/23 09:00 03/02/23 08:17 97.7 F 54 L 16 100/63 03/02/23 06:55 107/68 03/02/23 06:30 94/56 L 03/02/23 06:00 71 125/75 03/02/23 03:22 97.5 F L 54 L 16 106/67 03/01/23 22:50 52 L 03/02/23 00:05 66 03/01/23 23:28 98.1 F 51 L 15 105/59 L 03/01/23 20:00 03/01/23 19:24 97.3 F L 71 16 132/76 03/01/23 15:08 97.9 F 57 L 18 100/62 Pulse Ox O2 Del Method 03/02/23 12:54 98 Room Air 03/02/23 11:10 97 Room Air 03/02/23 09:00 03/02/23 09:00 Room Air 03/02/23 08:17 94 Room Air 03/02/23 06:55 03/02/23 06:30 03/02/23 06:00 03/02/23 03:22 95 Room Air 03/01/23 22:50 03/02/23 00:05 03/01/23 23:28 93 Room Air 03/01/23 20:00 Room Air 03/01/23 19:24 93 Room Air 03/01/23 15:08 94 Room Air Cardiovascular RRR, no murmur, no edema Respiratory normal respiratory effort, lungs clear to auscultation Pre-Sedation Airway Assessment Smoking Status: Current every day smoker Hx Sleep Apnea: No Short, Thick Neck: No Thyromental Distance: > or= 3.5 Finger Breadths Oral Cavity: + WNL Mallampati Class: III ASA: ASA3 NPO Status Date of Last Intake of Fluids: 03/01/23 Time of Last Intake of Fluids: 20:00 Date of Last Intake of Solid Food: 03/01/23 Time of Last Intake of Solid Foods: 20:00 Procedure Planning Contraindications for Sedation: none Current Medications Reviewed: Yes Notes The planned sedation has been discussed with the patient. Informed Consent was obtained. I have identified the patient, determined the appropriateness of sedation and have assessed the patient immediately prior to the procedure. All medicine(s) and interventions are by my order.
[2023-03-02] MEDS ORDERED: WARFARIN SOD 5 MG TAB PO SCH (17:15)
--- NOTE | 2023-03-02 17:24 | Cardiology Progress Note ---
Date of Service March 02, 2023 Assessment & Plan (1) Chest pain: (2) Chronic heart failure with preserved ejection fraction (HFpEF): (3) Valvular heart disease: (4) Paroxysmal atrial fibrillation: Plan (1) Chest pain: -cardiac catheterization with non obstructive disease for which medical Rx recommended. -Pt feels nitropaste helps her more than the Imdur -Transition to nitro patch am of 03/03 -suspect her chest pain may be related to her back pain rather than angina (2) Chronic heart failure with preserved ejection fraction (HFpEF): Continue outpatient diuretic therapy. -Echocardiogram performed in January with results as noted. No need to repeat at present. (3) Valvular heart disease: -Patient with history of moderate to severe mitral regurgitation. -volume status appears relatively stable at present. (5) Paroxysmal atrial fibrillation: -Patient remains in sinus rhythm. She had previously been on Eliquis. When hospitalized with concerns of gastrointestinal bleeding in January, Eliquis discontinued and ultimately transition to Coumadin due to cost concerns. -INR 1.8 yesterday and 2.3 on 03/02/23. - Heparin discontinued -resume coumadin Admission and Anticipated Discharge Date Admission Date: March 01, 2023 Subjective Pt seen in follow up post cardiac catheterization. Did well with the procedure. Feeling well. No chest pain. Telemetry reveals SR in the 50s to 60s. Physical Exam Constitutional: WD/WN, vitals as above Respiratory: no labored breathing and no retractions Auscultation: + crackles (mild crackles bilaterally at the bases ); no diminished lung sounds and no rhonchi Cardiovascular: Rate/Rhythm: regular rate and regular rhythm Heart Sounds: + murmur (1/6 SM ) Extremities: no edema Gastrointestinal (Abdomen): normal bowel sounds, soft, nontender, no hepatosplenomegaly Neurologic: PERRL, EOMI, accommodation nl, no face palsy, no dysarthria Results & Data Vital Signs (Past 12 Hours) Vital Signs Temp Pulse Pulse Pulse Resp BP BP 03/02/23 16:30 37 C 68 22 141/77 H 03/02/23 14:43 55 L 16 138/71 03/02/23 14:28 51 L 16 130/72 03/02/23 12:54 68 16 116/59 L 03/02/23 11:10 36.4 C L 54 L 22 116/70 03/02/23 09:00 58 L 03/02/23 09:00 03/02/23 08:17 36.5 C 54 L 16 100/63 03/02/23 06:55 107/68 03/02/23 06:30 94/56 L 03/02/23 06:00 71 125/75 Pulse Ox O2 Del Method 03/02/23 16:30 90 Room Air 03/02/23 14:43 96 Room Air 03/02/23 14:28 92 Room Air 03/02/23 12:54 98 Room Air 03/02/23 11:10 97 Room Air 03/02/23 09:00 03/02/23 09:00 Room Air 03/02/23 08:17 94 Room Air 03/02/23 06:55 03/02/23 06:30 03/02/23 06:00
--- NOTE | 2023-03-02 17:44 | Cardiac Catheterization ---
[facility] Data: Housing Counselor Cardiac Status Clinical evaluation leading to the procedure CAD Presenation: Unstable angina Diagnostic Physicians Name: Nirav Pires MD Closure Device Recommendations: Medical Therapy and/or Counseling Cardiac Cath Procedure Full Procedure Date March 02, 2023 Pre-Procedure Diagnosis Pre-Procedure Diagnosis: Cardiothoracic Symptom (atypical chest pain) AUC Score AUC Score: 7 Post-Procedure Diagnosis Post-Procedure Diagnosis: Moderate CAD and Normal Intracardiac Pressures Procedure(s) Performed Procedure(s) Performed: Coronary Angiography, Left Heart Cath and Fractional Flow Mitchell Client Development Manager Nirav Pires MD Drywall Hanger Helper(s) [place] Estimated Blood Loss Estimated Blood Loss: 15 Medication(s) Medication(s): Fentanyl, Heparin, Lidocaine 1%, Nicardipine, Nitroglycerin and Versed Summary of Findings Indication: Chest pain Access: 6 Fr right radial artery Catheters: [place], [employer] left 3.5 guide Findings: LM -Long vessel, normal caliber LAD -medium caliber, calcified, 30 to 40% ostial, 40% earlymid at takeoff of D2, mid to distal vessel with luminal irregularities and wraps around apex. Medium D2 with 40% ostial stenosis. Circumflex -medium caliber, 50% mid segment stenosis, medium OM 2 bifurcates with 70% stenosis in most lateral branch. RCA -dominant, medium caliber, 50% ostial stenosis, 20 to 30% proximal to mid disease, 40 to 50% distal stenosis. Small PDA with moderate mid segment disease FFR of RCA RCA cannulated with [employer] left 3.5 guide Perez FFR wire navigated across ostial and distal RCA stenosis IFR 0.99 Post procedure angiography revealed no complications LVEDP -9 Arterial Closure: TR band Summary: 1. Multivessel moderate coronary artery disease -50% ostial, 40-50% distal RCA (nonobstructive by IFR) -50% mid circumflex. Lateral branch of OM 2 with 70% stenosis 35% ostial, 40% mid LAD. Medium D2 40% ostial 2. Normal intracardiac filling pressure Recommendations: No high risk disease or severe CAD to explain rest chest symptoms. Recommend trial of antianginal therapy and continued pain management for noncardiac pain symptoms. Continued ASCVD risk factor modification Hemodynamics Rest Ao:: 109/51/74 Final Ao: 125/59/89 LV: 109/9 Recommendations Recommendations: Medical Therapy and/or Counseling Specimens Specimens: None Radiation Exposure (mGy) 845 Contrast (mls) 60 Anesthesia Moderate 1340 - 1411 Procedural Complication(s) None Disposition PCU I attest to the content of the Intraoperative Record and any orders documented therein. Any exceptions are noted below. [facility] Card Cath Procedure Codes Cardiac Catheterization Procedure 1: Cardiovascular Cath Procedures: 56079 Coronaries and LHC (+/-LV) Procedure 2: Cardiovascular Cath Procedures: 44995 (Doppler) Pressure Wire Moderate Sedation Procedure 1: Sedation/Anesthesia: 71065 Mod Sedation by the same physician;Init15 Min Child Age 5 & Up Procedure 2: Sedation/Anesthesia: 94609 Mod Sedation by the same physician; Ea [id number] Minutes PG Care Time/CCT Total # of Minutes Spent Total Time Spent with Patient: Total time spent is greater than 50% in coordination of care (as documented) at patient's floor/unit and/or counseling patient:
--- NOTE | 2023-03-02 17:45 | Post Anesthesia Assessment ---
Date of Service March 02, 2023 Post Sedation Assessment Vital Signs Temp Pulse Pulse Pulse Resp BP BP 03/02/23 16:30 98.6 F 68 22 141/77 H 03/02/23 14:43 55 L 16 138/71 03/02/23 14:28 51 L 16 130/72 03/02/23 12:54 68 16 116/59 L 03/02/23 11:10 97.5 F L 54 L 22 116/70 03/02/23 09:00 58 L 03/02/23 09:00 03/02/23 08:17 97.7 F 54 L 16 100/63 03/02/23 06:55 107/68 03/02/23 06:30 94/56 L 03/02/23 06:00 71 125/75 03/02/23 03:22 97.5 F L 54 L 16 106/67 03/01/23 22:50 52 L 03/02/23 00:05 66 03/01/23 23:28 98.1 F 51 L 15 105/59 L 03/01/23 20:00 03/01/23 19:24 97.3 F L 71 16 132/76 Pulse Ox O2 Del Method 03/02/23 16:30 90 Room Air 03/02/23 14:43 96 Room Air 03/02/23 14:28 92 Room Air 03/02/23 12:54 98 Room Air 03/02/23 11:10 97 Room Air 03/02/23 09:00 03/02/23 09:00 Room Air 03/02/23 08:17 94 Room Air 03/02/23 06:55 03/02/23 06:30 03/02/23 06:00 03/02/23 03:22 95 Room Air 03/01/23 22:50 03/02/23 00:05 03/01/23 23:28 93 Room Air 03/01/23 20:00 Room Air 03/01/23 19:24 93 Room Air Recovery Score Activity: Moves 4 extremities Respiration: Deep Breath/Cough Circulation: +/-20% PreAnes Value Consciousness: Fully Awake Oxygen Saturation: > 92% On Room Air Post Anesthesia Score: 10 Discharge Sedation Level of Care: Fast Track Phase II Post Sedation Plan On clinical assessment, the patient appears to have tolerated the sedation wit hout complications. Patient is recovering as anticipated. Patient will continue to be monitored by nursing and may be discharged when sedation discharge criteria are met per below protocol. Upon Completions of procedure up to 15 minutes continue every 5 minute vital signs and the P.A.R. score; then discharge to a Phase I or Fast Track to Phase II per the following guidelines: * Discharge Patient to appropriate Phase II area if PAR is 8 or greater or return to pre- procedure baseline. The post - procedure orders will be as directed. * If PAR score is less than 8 or not return to pre-procedure baseline then patient will follow Phase I monitoring till PAR is reached for Phase II. The Phase I may be done in procedure room or may call to secure a Phase I area. * If naloxone or flumazenil are used for reversal, hold in Phase I for continued monitoring from when last reversal dose was given for a minimum of 60 minutes or longer pending the nurse and/or physician discretion of patient condition before discharge to Phase II. Please call the Sedation Physician to re-evaluate and complete post-note for discharge to Phase II area. Do NOT discharge from procedure sedation or Phase 1 until post- sedation evaluation note is complete by procedure /sedation MD Sedation Discharge Instructions to be given to the patient at discharge to home.
[2023-03-02] MEDS: HEPARIN SODIUM/DEXTROSE 25,000 UNITS/500 ML BAG IV SCH (18:10)
[2023-03-02] MEDS ORDERED: hydrOXYzine HCl 10 MG TAB PO PRN (19:54)
[2023-03-02] MEDS: traZODone HCL 100 MG TAB PO SCH (20:23)
[2023-03-03] MEDS: HYDROcodone/ACETAMINOPHEN 10/325 TAB PO PRN ×2 (02:18→08:08)
--- NOTE | 2023-03-03 05:27 | Electrocardiogram Report ---
Test Reason : Blood Pressure : / mmHG Vent. Rate : 066 BPM Atrial Rate : 066 BPM P-R Int : 146 ms QRS Dur : 070 ms QT Int : 400 ms P-R-T Axes : 040 -16 026 degrees QTc Int : 419 ms Normal sinus rhythm Low voltage QRS Cannot rule out Anteroseptal infarct (cited on or before 08-NOV-2022) Possible Inferior infarct Abnormal ECG When compared with ECG of 27-FEB-2023 21:49, Questionable change in initial forces of Anterior leads Confirmed by Mani Barroso ([id number]) on 03/03/2023 5:27:37 AM Referred By: Confirmed By:Mani Barroso
--- NOTE | 2023-03-03 05:56 | Electrocardiogram Report ---
Test Reason : Blood Pressure : / mmHG Vent. Rate : 080 BPM Atrial Rate : 080 BPM P-R Int : 152 ms QRS Dur : 074 ms QT Int : 380 ms P-R-T Axes : 064 045 054 degrees QTc Int : 438 ms Normal sinus rhythm Low voltage QRS Cannot rule out Anterior infarct (cited on or before 08-NOV-2022) Nonspecific T wave abnormality Abnormal ECG When compared with ECG of 28-FEB-2023 15:15, No significant change was found Confirmed by Mani Barroso ([id number]) on 03/03/2023 5:56:06 AM Referred By: REFERRED SELF Confirmed By:Mani Barroso
--- NOTE | 2023-03-03 06:17 | Electrocardiogram Report ---
Test Reason : Blood Pressure : / mmHG Vent. Rate : 060 BPM Atrial Rate : 060 BPM P-R Int : 138 ms QRS Dur : 078 ms QT Int : 448 ms P-R-T Axes : 050 010 044 degrees QTc Int : 448 ms Normal sinus rhythm Low voltage QRS Septal infarct (cited on or before 08-NOV-2022) Nonspecific T wave abnormality Abnormal ECG When compared with ECG of 01-MAR-2023 06:06, No significant change was found Confirmed by Mani Barroso ([id number]) on 03/03/2023 6:17:22 AM Referred By: REFERRED SELF Confirmed By:Mani Barroso
[2023-03-03 06:44] LABS: BUN Creatinine Ratio 24.1 (10-20); Calcium 8.6 mg/dl (8.6-10.3); Creatinine Clr Calc Pharmacy 61.8 ml/min; Est GFR (African American) 104.8 ml/min; Est GFR (Non-African American) 90.4 ml/min; Magnesium 2.1 mg/dl (1.7-2.4); Potassium 3.7 mmol/L (3.5-5.1)
[2023-03-03 06:45] LABS: Basophils # (auto) 0.04 K/uL (0.00-0.20); Basophils % (auto) 0.6 %; Eosinophils % (auto) 1.5 %; Hemoglobin 12.5 g/dl (12.0-16.0); Immature Granulocytes # (auto) 0.03 K/uL (0.01-0.20); Immature Granulocytes % (auto) 0.4 %; Lymphocytes # (auto) 1.42 K/uL (1.20-3.40); Lymphocytes % (auto) 20.7 %; Mean Corpuscular Hemoglobin 32.4 pg (25.0-34.0); Mean Corpuscular Hgb Conc 32.9 g/dL (32.0-36.0); Mean Corpuscular Volume 98.4 fL (80.0-100.0); Mean Platelet Volume 10.8 fL (9.4-12.4); Monocytes # (auto) 0.61 K/uL (0.11-0.59); Monocytes % (auto) 8.9 %; Neutrophils # (auto) 4.67 K/uL (1.40-6.50); Neutrophils % (auto) 67.9 %; Platelet Count 142 K/uL (130-400); RDW Coefficient of Variation 14.6 % (11.5-14.5); RDW Standard Deviation 53.1 fL (36.4-46.3); Red Blood Count 3.86 M/uL (4.20-5.40); White Blood Count 6.87 K/ul (4.8-10.8)
[2023-03-03 07:08] LABS: INR 2.1 (0.9-1.1); Prothrombin Time 21.7 Seconds (9.0-12.0)
[2023-03-03] MEDS: CALCIUM 600MG + VIT D 400 IU TAB PO SCH (07:45)
[2023-03-03] MEDS: MULTIVITAMIN TAB PO SCH (07:45)
[2023-03-03] MEDS: ATORVASTATIN 10 MG TAB PO SCH (07:45)
[2023-03-03] MEDS: PANTOprazole 40 MG TAB PO SCH (07:45)
[2023-03-03] MEDS: FUROSEMIDE 20 MG TAB PO SCH (07:45)
[2023-03-03] MEDS: METOPROLOL SUCC 25MG EXT REL TAB PO SCH (07:45)
[2023-03-03] MEDS: SPIRONOLACTONE 25 MG TAB PO SCH (07:45)
[2023-03-03] MEDS: busPIRone 5 MG TAB PO SCH (07:46)
[2023-03-03] MEDS ORDERED: NITROGLYCERIN 0.4 MG/HR PATCH TD SCH (09:00)
--- NOTE | 2023-03-03 10:26 | Cardiology Progress Note ---
Date of Service March 03, 2023 Assessment & Plan (1) Chest pain: (2) Chronic heart failure with preserved ejection fraction (HFpEF): (3) Valvular heart disease: (4) Paroxysmal atrial fibrillation: Plan (1) Chest pain: -Invasive coronary angiography performed 03/02/2023 Multivessel moderate coronary artery disease -50% ostial, 40-50% distal RCA (nonobstructive by IFR) -50% mid circumflex. Lateral branch of OM 2 with 70% stenosis 35% ostial, 40% mid LAD. Medium D2 40% ostial -Normal intracardiac filling pressure -Pt feels nitropaste helps her more than the Imdur -Transitioned to nitro patch am of 03/03 -suspect her chest pain may be related to her back pain rather than angina (2) Chronic heart failure with preserved ejection fraction (HFpEF): Continue outpatient diuretic therapy. (3) Valvular heart disease: -Patient with history of moderate to severe mitral regurgitation. -volume status appears relatively stable at present. (5) Paroxysmal atrial fibrillation: -Patient remains in sinus rhythm. She had previously been on Eliquis. When hospitalized with concerns of gastrointestinal bleeding in January, Eliquis discontinued and ultimately transitioned to Coumadin due to cost concerns. -INR 2.1 today. -Coumadin already reinitiated -- Patient stable from a cardiac perspective for discharge. -- Continue chronic pain medications including lidocaine patch. -- Discontinue isosorbide mononitrate in favor of nitroglycerin patch. Admission and Anticipated Discharge Date Admission Date: March 01, 2023 Subjective Patient seen in cardiology follow-up. She states that she feels well having had nitroglycerin patch applied for the first time today. Telemetry reveals sinus rhythm in the range of 50 to 60 bpm. Her right radial access site is clean dry and intact without hematoma. Physical Exam Constitutional: WD/WN, vitals as above Respiratory: no labored breathing and no retractions Auscultation: + crackles (mild crackles bilaterally at the bases ); no diminished lung sounds and no rhonchi Cardiovascular: Rate/Rhythm: regular rate and regular rhythm Heart Sounds: + murmur (1/6 SM ) Extremities: no edema Gastrointestinal (Abdomen): normal bowel sounds, soft, nontender, no hepatosplenomegaly Neurologic: PERRL, EOMI, accommodation nl, no face palsy, no dysarthria Results & Data Vital Signs (Past 12 Hours) Vital Signs Temp Pulse Pulse Resp BP Pulse Ox O2 Del Method 03/03/23 09:36 53 L 03/03/23 09:36 Room Air 03/03/23 08:00 36.6 C 51 L 18 114/73 97 Room Air 03/03/23 04:11 36.6 C 52 L 18 112/77 95 Room Air 03/03/23 02:27 49 L 03/02/23 23:18 36.8 C 54 L 18 123/73 96 Room Air Laboratory Results 03/03/2023: INR 2.1 Creatinine 0.54
--- NOTE | 2023-03-03 12:27 | Discharge Summary ---
Date of Service March 03, 2023 Admission HPI Per Admitting Provider This is a 77yo F with a PMH of atrial fibrillation on coumadin, CAD, chronic back pain with stimulator in place, opioid dependence, h/o pleural effusion, HTN, HLD, current smoker, migraines, insomnia, depression and other medical problems listed below who returns to the ED with chest pain. Has history of recent admission earlier in February for chest pain. Was found to have trace left pleural effusion at that time and received IV diuretics. Cardiology was consulted and EKG revealed no acute changes, normal highly sensitive troponin x3 and had a recent echo in January 2023 without acute changes. Does have history of paroxysmal atrial fibrillation with known valvular heart disease and experiences some discomfort and palpitations with this. During previous admission, oral Lasix was resumed and Aldactone was started. Patient thought to have some degree of coronary artery disease but no acute ACS and directed to medically manage and follow-up with cardiology in clinic. Returned to ED last evening with CP that developed at rest was central in location with radiation down left arm with associated palpitations, SOB and nausea. Workup in EDwas negative but ED provider encouraged patient to stay for full ACS rule out due to heart score of 5 but patient elected to be discharged back home. Pain recurred this morning around 0900 at rest. Pain was similar location with radiation down left arm with associated palpitations, SOB and nausea. No vomiting. Pain has improved with 0.5" ntg paste and pain is currently 0/10 but still experiencing her chronic back pain. Ambulates with a walker. Admission Exam Per Admitting Provider General: Elderly woman, thin, no acute distress Eyes: PERRL, conjunctivae normal, not pale, anicteric sclerae, EOM intact bilaterally ENMT: External ear and nose normal, oropharynx normal Respiratory: Normal respiratory effort, no respiratory distress, lungs clear to auscultation, no crackles and no wheezes Cardiovascular: RRR s1 s2 Chest (Breasts): No chest wall tenderness Gastrointestinal (Abdomen): Abdomen is not distended, soft, non-tender to palpation, no guarding, no palpable hepatosplenomegaly, normal bowel sounds. Pain pump palpable Musculoskeletal: +pedal edema. Palpable bony spur on upper central back (chronic per patient) Neurologic: Alert and oriented x 3, No focal weakness, sensation grossly intact Psychiatric: Euthymic affect Principal Diagnosis Chest pain Discharge Exam CONSTITUTIONAL: thin, elderly frail F in NAD EYES: normal conjunctivae, no scleral icterus ENT: external ear and nose normal, oropharynx clear, MMM NECK: trachea midline RESPIRATORY: clear to auscultation bilaterally, no crackles, rales or wheezes, normal respiratory effort CARDIOVASCULAR: regular rate and rhythm, S1 and 2 heard without murmurs, no JVD, no peripheral edema CHEST: inspection of chest normal GASTROINTESTINAL: soft, nontender, ND, no guarding MUSCULOSKELETAL:head is normocephalic and atraumatic, pt moves extremities SKIN: warm and dry NEURO/PSYCH: awake alert and cooperative, answers appropriately, no facial asymmetry, speech fluent, moves extremities Discharge Data Allergies Allergy/AdvReac Type Severity Reaction Status Date / Time chlorhexidine Allergy Mild Rash Verified 02/10/23 11:11 fluconazole [From Diflucan] AdvReac Severe Diarrhea Verified 02/10/23 11:11 (with oral) hydrochlorothiazide AdvReac Intermediate Pancreatiti Verified 02/10/23 11:11 s ondansetron [From Zofran] AdvReac Intermediate Headaches Verified 02/10/23 11:11 Consultations 02/28/23 17:01 ED Decision to Admit Stat 02/28/23 19:50 Consult Cardiology Routine Procedures Performed Operation Date: 03/02/23 13:00 Actual Procedures p Cineradiography w/Routine Exam - Nirav Pires MD p Cath, Left with Cors and Vent - Nirav Pires MD Ordered Studies 03/02/23 07:03 CL Cath Imgs for PACS use only Routine Hospital Course (1) Chest pain: (2) Valvular heart disease: (3) Chronic heart failure with preserved ejection fraction (HFpEF): (4) Smoker: (5) Chronic back pain: (6) HLD (hyperlipidemia): (7) Opiate dependence: (8) HTN (hypertension): (9) CAD (coronary artery disease): (10) penitentiary (current) use of anticoagulants: (11) Paroxysmal atrial fibrillation: (12) Depression: Plan This is a 77yo F with a PMH of atrial fibrillation on coumadin, CAD, chronic back pain with stimulator in place, opioid dependence, h/o pleural effusion, HTN, HLD, current smoker, migraines, insomnia, depression and other medical problems listed below who returns to the ED with chest pain. Chest Pain Has history of recent admission earlier in February for chest pain with ACS rule out, resumed on lasix and stated on aldactone 2/2 volume overload, directed to janet re[facility] . Multiple increased episodes of chest pain now in the last week on aspirin, consistent with a possible unstable angina picture in this active smoker. No acute EKG changes HS trop negative Monitor on tele, trend troponin, cont nitro paste S/p Cardiac cath on 03/02/23 with nonobstructive disease, recommend cont with medical management. Pt is requesting the nitro paste at home. She notably has used SL nitroglycerin excessively in the last two weeks. Defer to cardiology. - Discussed w/cardiology - STOP IMDUR, START NITRO patch - today pt is feeling well, denies any chest pain - plan to Dc pt home Cont low dose atorvastatin with recent LDL 33. Atrial fibrillation Chronic stable. Continue Toprol resumed warfarin, iv heparin stopped HTN Chronic stable. Continue diuretics, Toprol, stop Imdur (as above) and cont. nitro patch HLD Chronic stable. Continue atorvastatin Chronic Back Pain Back stimulator in place with hydromorphone pump recently filled and hydrocodone-acetaminophen 10-325 PRN for breakthrough pain; continue home regimen Notably she reports speaking with her pain provider who states he didn't think her medication was the cause of her vomiting last admission. She would like to stick to hydromorphone the next time it gets refilled. Uses walker at baseline Tobacco Use Smokes 1/2 ppd since she was a teenager, ~60 pack year hx. Cessation encouraged Migraine Chronic stable, PRN rizatriptan Insomnia Continue trazodone HS Depression: Continue BuSpar Total Time Total Time Spent Total Time Spent (In Minutes): 40 Discharge Plan Discharge Items Patient Disposition: Home - Self-Care Reason For Visit: CP Discharge Diagnosis: Chest pain Activity: Per Instructions section Non-emergency contact: Primary Care Provider Call non-emergency contact if: you have any medication questions and your symptoms worsen Follow-up/Referrals: Casey Rodgers [Primary Care Provider] - 03/08/23 12:00 pm Diet: Heart Healthy Diet Texture: Easy to Chew Addtl Attending Provider Instructions: Follow up with primary care physician, the appointment was scheduled for you for 03/08/2023. Stop using imdur, and instead start using nitro patch as prescribed. Pending Studies at Discharge: No Stand-Alone Forms: My [facility], Smoking Cessation Medications and DC Order Prescriptions: New nitroglycerin [Nitro-Dur] 0.4 mg/hr Patch 24 Hour 1 patch transdermal QAM Qty: 30 0RF Continued hydrocodone-acetaminophen 10-325 mg tablet 1 tab PO Q6 PRN (Reason: Pain) promethazine 12.5 mg tablet 12.5 mg PO Q6H PRN (Reason: Nausea) buspirone 5 mg tablet 5 mg PO BID multivitamin Tablet 1 tab PO QAM trazodone 100 mg Tablet 200 mg PO HS omeprazole 20 mg Tablet,Delayed Release (Dr/Ec) 20 mg PO QPM rizatriptan 10 mg Tablet 10 mg PO UD PRN (Reason: Migraine Headache) Rx Instructions: take 1 tab at onset of headache; if no relief may repeat 1 tab after at least 2 hrs; max = 3 tabs/24 hr atorvastatin 10 mg Tablet 10 mg PO QAM Qty: 30 0RF znkcxzfpaq-vsgvbpzygdpft-zcli 50-325-40 mg Tablet 1 tab PO TID PRN (Reason: Migraine Headache) furosemide [Lasix] 20 mg Tablet 20 mg PO 5XWK Rx Instructions: Wednesday through Wednesday calcium carbonate-vitamin D3 [Calcium 600 + D(3)] 600 mg-10 mcg (400 unit) Tablet 1 tab PO DAILY Hydromorphone Pain Pump 0 mg INJ DIRECTED metoprolol succinate 25 mg tablet extended release 24 hr 25 mg PO QAM spironolactone 25 mg tablet 25 mg PO 3XWK Rx Instructions: Wednesday, Wednesday, Wednesday warfarin 5 mg tablet 5 mg PO DAILY Qty: 2 0RF Rx Instructions: starting tomorrow. pantoprazole [Protonix] 40 mg tablet,delayed release (DR/EC) 40 mg PO DAILY Qty: 10 0RF nitroglycerin 0.4 mg tablet, sublingual 0.4 mg sublingual Q5M PRN (Reason: chest pain) Qty: 30 0RF Rx Instructions: max 3 tabs, if pain persists seek immediate medical attention Discontinued isosorbide mononitrate 30 mg Tablet Extended Release 24 Hr 30 mg PO QAM Qty: 30 0RF Discharge Orders: Discharge Order (Routine); Ordered 03/03/23 Ordered By: Nba Malagon Admission Data Admit Date/Time: 03/01/23 21:10 Attending Provider: Nba Malagon Admit Provider: Isa Clifford I. Primary Care Provider: Casey Rodgers Other Providers: Isa Clifford I. ; Devyn Ward ; Shivani Roman
--- NOTE | 2023-03-04 05:44 | Electrocardiogram Report ---
Test Reason : Blood Pressure : / mmHG Vent. Rate : 054 BPM Atrial Rate : 054 BPM P-R Int : 148 ms QRS Dur : 074 ms QT Int : 380 ms P-R-T Axes : 042 026 031 degrees QTc Int : 360 ms Sinus bradycardia Low voltage QRS Cannot rule out Anteroseptal infarct (cited on or before 08-NOV-2022) Nonspecific T wave abnormality Abnormal ECG When compared with ECG of 01-MAR-2023 11:57, Questionable change in initial forces of Anterior leads Confirmed by Mani Barroso ([id number]) on 03/04/2023 5:43:38 AM Referred By: REFERRED SELF Confirmed By:Mani Barroso
--- NOTE | 2023-03-04 22:24 | Electrocardiogram Report ---
Test Reason : Blood Pressure : / mmHG Vent. Rate : 062 BPM Atrial Rate : 062 BPM P-R Int : 136 ms QRS Dur : 066 ms QT Int : 422 ms P-R-T Axes : 034 -09 048 degrees QTc Int : 428 ms Normal sinus rhythm Low voltage QRS Nonspecific T wave abnormality Abnormal ECG When compared with ECG of 02-MAR-2023 06:18, Questionable change in initial forces of Anterior leads Confirmed by Mani Barroso ([id number]) on 03/04/2023 10:23:39 PM Referred By: REFERRED SELF Confirmed By:Mani Barroso
== END 2023-03-03 14:25 | disposition home or self-care (01) | DRG 287 ==
LOC: 4W 14:52 → ED 14:52 → SUATTDRO 17:39 → 4W 19:26 → SUATTDRO 03-01 21:10

== ENCOUNTER 2023-04-17 18:26 | Inpatient (IN) ==
--- OUTSIDE RECORDS SUMMARY | 2023-04-17 18:32 | External Medical Summary | Summary of Care ---
Author Name Unknown Organization [facility] Address [address] [place] [address] Phone [phone] Care Team Providers Care Sand Mixer Name Role Phone Casey Rodgers MD Primary Care Provider Reason for Visit * Reason Comments Dosage Adjustment In Person (Anticoag Cl inic) Encounter Details Date Type Department Care Team (Latest Contact Info) Description 03/15/2023 3:[address] 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 90 Tab 0 07/20/2017 Active Calcium Carbonate-Vitamin D 500-125 MG-UNIT Oral Tablet Take by mouth daily. 0 Act lola Aspirin-Acetaminop hen-Caffeine 250-250-65 MG Oral Tablet Take [...] Oral Tablet Take by mouth daily. 0 Acti ve Rizatriptan Benzoate 10 MG Oral Tablet Take 1 Tablet by mouth as needed for Migraine. 0 Active traZODone HCl 100 MG Oral Tablet (Desyrel) Take 1 Tablet by mouth at bedtime. 0 Active Fpaaeisqlm-GSSX-Go ffeine 50-325-40 MG Oral Tablet Take 1 Tablet by mouth 3 times a day as needed. 0 Active Atorvastatin Calcium 10 MG Oral Tablet [...] Oral Tablet Extended Release 24 Hour (toPROL XL)Indications:Par oxysmal atrial fibrillation (HCC),Localized edema Take 1 Tablet by mouth in the morning. 90 Tablet 3 12/17/2022 Active Spironolactone 25 MG Oral Tablet (Aldactone)Indicat ions:Paroxysmal atrial fibrillation (HCC),Localized edema Take 1/2 tablet 5 days per week 45 Tablet 3 12/17/2022 Active Furosemide 40 MG Oral Tablet (Lasix)Indications :Paroxysmal atrial fibrillation (HCC),Localized edema Take 1/2 tablet 5 days per week 45 Tablet 3 12/17/2022 Active Warfarin Sodium 5 MG Oral Tablet (Coumadin) Take 1-2 tablets by mouth daily as directed by anticoagulation clinic 30 Tablet 5 02/08/2023 Active Nitroglycerin 0.4 MG Sublingual Tablet Sublingual (Nitrostat)Indicat ions:CAD (coronary artery disease) Place 1 Tablet under the tongue every 5 minutes as needed for Pain, Chest. up to 3 doses in 15 minutes 25 Tablet 5 02/26/2023 Active documented as of this encounter (statuses as of 03/15/2023) Active Problems Problem Noted Date Diagnosed Date Nonrheumatic mitral valve regurgitation 12/31/19 Paroxysmal atrial fibrillation 12/30/2022 Chronic heart failure with preserved ejection fr action 12/30/2022 Dyslipidemia, goal LDL below 70 12/30/2022 S/P laminectomy with spinal fusion 06/01/2017 Postoperative anemia due to acute blood loss HTN (hypertension) 05/02/2017 Tobacco abuse 05/02/2017 Spinal stenosis 05/02/2017 GERD (gastroesophageal reflux disease) 7 SIRS (systemic inflammatory response syndrome) 1 07/03/2016 Thrombocytopenia 05/02/2017 Bilateral low back pain without sciatica 016 documented as of this encounter (statuses as of 03/15/2023) Social History Tobacco Use Types Packs/Day Years Used Date Smoking Tobacco: Every Day Cigarettes 0.5 50 Started: 09/04/1965 Smokeless Tobacco: Never Alcohol Use Standard Drinks/Week Comments No 0 (1 standard drink = 0.6 oz pur e alcohol) Sex and Gender Information Value Date Recorded Sex Assigned at Not on file Gender Identity Not on file Sexual Orientation Not on file Job Start Date Occupation [...] as of this encounter Progress Notes * Janice Dior, [facility] - 03/15/2023 3:05 PM EST Images from the original note were not included. Medication Therapy Disease Management - Anticoagulation Patient: Alexia Campos | : 1945 Subjective Patient-Reported Symptoms: Patient Findings Positives: Change in health (N/V, decrease in appetite), Change in diet/appetite Negatives: Signs/symptoms of thrombosis, Signs/symptoms of bleeding, Change in alcohol use, Change in activity, Upcoming invasive procedure, Missed doses, Extra doses, Change in medications, Bruising Objective Current Warfarin Dose As of 03/15/2023 Warfarin maintenance plan: 2.5 mg (5 mg x 0.5) every day INR Result As of 03/15/2023 INR goal: 2.0-3.0 INR used for dosin.5 (03/15/2023) Assessment & Plan Warfarin Plan As of 03/15/2023 Full warfarin instructions: 03/15: Hold; Otherwise 2.5 mg every day Next INR check: 03/18/2023 Repeat PT/INR in 3 day(s) Weekly dose: not changed Additional Dosing Information: Description Ensure Janice Dior [facility] Clinical Pharmacist 03/15/2023, 3:05 PM documented in this encounter Plan of Treatment Upcoming Encounters Date Type Department Care Team (Late st Contact Info) Description 03/18/2023 2:50 PM EST Anticoagulation Pharmacy, [address] [place] [id number] [place] [address] Health Maintenance Due Date Last Done Comments Pneumococcal Vaccine: 65+ Years (1 - PCV) 1950 Depression Screening 1956 Albumin/Creatinine Ratio 1962 Hepatitis C Screening 1962 DTaP,Tdap,and Td Vaccines (1 - Tdap) 12/21/1963 LUNG CANCER SCREENING - USE SMARTSET 75508 1994 Zoster Vaccines (1 of 2) 1994 DXA Scan 12/26/2021 12/26/2014 COVID-19 Vaccine (3 - 2022- season) 2023 07/05/2020, 06/07/2020 Influenza Vaccine (FLU shot) (#1) 2023 GFR [...] this encounter Medical Devices Implanted Type Area Lathe Turner Device Identifier Shelf Expiration Date Model / Serial / Lot Dbx 10cc [id number] - [id number] - [id number] Implanted:Qty : 1 on 01/11/2015 by Colin Krause MD [place] [facility] [place] Tissue - Human N/A: Spine Lumbar MUSCULOSKELETAL TRANSPLANT FND 08/18/2016 [id number] / [id number] / Chip Cancellous 90cc [id number] - [id number] Implanted:Qty : 1 on 04/30/2017 by Colin Krause MD at [place] [facility] [place] Tissue - Human N/A: Spine Lumbar MUSCULOSKELETAL TRANSPLANT FND 01/29/2018 [id number] / / Expedium Ti Sfx 5.5 Lat A2 - [id number] Implanted:Qty : 1 on 01/11/2015 by Colin Krause MD at [place] [facility] [place] N/A: Spine Lumbar JNJ : [employer] [id number] / / Expedium Ti Sfx 5.5 Lat A6 - [id number] Implanted:Qty : 2 on 04/30/2017 by Colin Krause MD at [place] [facility] [place] N/A: Spine Lumbar JNJ : [employer] [id number] / / documented as of this encounter Procedures Procedure Name Priority Date/Time Associated Diagnosis Comments INR FINGERSTICK, POINT OF CARE STAT 03/15/2023 3:10 PM EST Paroxysmal atrial fibrillation (HCC) 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 documented in this encounter Results * INR FINGERSTICK, POINT OF CARE (03/15/2023 3:10 PM EST) Fingerstick INR 3.5 INR 3 3:12 PM EST [facility] [place] [id number] Blood 03/15/2023 3:10 PM EST 03/15/2023 3:12 PM EST Narrative [facility] [place] 55-00 - 03/15/2023 3:12 PM EST Therapeutic ranges for non-operative patients: Prophylaxsis/treatment of DVT: (Range:2.0-3.0) Treatment of pulmonary embolism:(Range:2.0-3.0) Prevention of systemic embolism from: -tissue heart valves -acute myocardial infarction -valvular heart disease -atrial fibrillation (Range: 2.0-3.0) Mechanical prosthetic valves: (Range: 2.5-3.5) Janice Dior [facility] LAB POINT OF CARE TEST DOCKED DEVICE UNSOLICITED RESULTS LABORATORY [address] [place] [address] documented in this encounter Visit Diagnoses Diagnosis Paroxysmal atrial fibrillation (HCC)- Primary Atrial fibrillation Anticoagulation management encounter 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 No Care Teams Sand Mixer Relationship Specialty Start Date End Date Casey Rodgers MD [address] [place] [id number] PCP - General Family Medicine 09/04/14 documented as of this encounter"
--- OUTSIDE RECORDS SUMMARY | 2023-04-17 18:32 | External Medical Summary | Summary of Care ---
Author Name Unknown Organization [facility] Address [address] [place] [address] Phone [phone] Care Team Providers Care Training Intern Name Role Phone Casey Rodgers MD Primary Care Provider Reason for Visit * Reason Comments Dosage Adjustment In Person (Anticoag Cl inic) Encounter Details Date Type Department Care Team (Latest Contact Info) Description 03/11/2023 2:20 PM EDT Anticoagulation Pharmacy, [address] [place] [id number] [place] [address] Paroxysmal atrial fibrillation (HCC)* Allergies Active Allergy Reactions Criticality Noted Date Comments Chlorhexidine Itching 09/10/2020 Hydrochlorothiazide Other (Please comment) 02/26/2017 Caused pancreatitis Metronidazole 02/09/2017 Pill causes severe diarrhea Ondansetron Other (Please comment) High 03/04/2018 TAYLOR documented as of this encounter (statuses as of 03/11/2023) Medications Medication Sig Dispensed Refills Start Date [...] Tablet by mouth at bedtime. 0 Active Kzhctazyqs-QEPP-Qp ffeine 50-325-40 MG Oral Tablet Take 1 [...] as of this encounter (statuses as of 03/11/2023) Active Problems Problem Noted Date Diagnosed Date [...] as of this encounter (statuses as of 03/11/2023) Social History Tobacco Use Types Packs/Day Years [...] this encounter Progress Notes * Janice Dior, [facility] - 03/11/2023 2:17 PM EDT Patient did not show today for ACC visit with . and son report patient is not feeling well. INR subtherapeutic on 03/08. Prefers to come in on 03/15. OFS scheduled. Reviewed importance of INR adherence while on warfarin. Janice Dior RP, PharmD Clinical Pharmacist - Behavioral Science Chair Medication Therapy Disease Management Clinic 03/11/2023, 2:18 PM [phone] documented in this encounter Plan of Treatment Upcoming Encounters Date Type Department Care Team (Late st Contact Info) Description 03/15/2023 3:10 PM EST Anticoagulation Pharmacy, [address] [place] [address] [place] [address] 03/18/2023 2:50 PM EST Anticoagulation Pharmacy, [address] [place] [address] [place] [address] Health Maintenance Due Date Last Done Comments Pneumococcal Vaccine: 65+ Years (1 - PCV) 1950 Depression Screening 1956 Albumin/Creatinine Ratio 1962 Hepatitis C Screening 1962 DTaP,Tdap,and Td Vaccines (1 - Tdap) 12/21/1963 LUNG CANCER SCREENING - USE SMARTSET 21023 1994 Zoster Vaccines (1 of 2) 1994 [...] this encounter Medical Devices Implanted Type Area Regulatory Product Manager Device Identifier Shelf Expiration Date Model / Serial / Lot Dbx 10cc [id number] - [id number] - [id number] Implanted:Qty : 1 on 01/11/2015 by Colin Krause MD at [place] [facility] [place] Tissue - Human N/A: Spine Lumbar MUSCULOSKELETAL TRANSPLANT FND 08/18/2016 [id number] / [id number] / Chip Cancellous 90cc [id number] - [id number] Implanted:Qty : 1 on 04/30/2017 by Colin Krause MD at [place] [facility] [place] Tissue - Human N/A: Spine Lumbar MUSCULOSKELETAL TRANSPLANT FND 01/29/2018 [id number] / / Expedium Ti Sfx 5.5 Lat A2 - [id number] Implanted:Qty : 1 on 01/11/2015 by Colin Krause MD at [place] [facility] [place] N/A: Spine Lumbar JNJ : [employer] [id number] / / Expedium Ti Sfx 5.5 Lat A6 - [id number] Implanted:Qty : 2 on 04/30/2017 by Colin Krause MD at [place] [facility] [place] N/A: Spine Lumbar JNJ : [employer] [id number] / / documented as of this encounter Visit Diagnoses Diagnosis Paroxysmal atrial fibrillation (HCC)- Primary Atrial fibrillation documented in this [...] the patient have Health Care Power of Boarding Mother? No Care Teams Training Intern Relationship Specialty Start Date End Date Casey Rodgers MD [address] [place] [address] PCP - General Family Medicine 09/04/14 documented as of this encounter
--- OUTSIDE RECORDS SUMMARY | 2023-04-17 18:32 | External Medical Summary ---
Author Name Unknown Address Unknown Organization [id number]:[facility]ATORY [facility] [place] - [address] [place] [address] Laboratory Report Ordering Provider Test Date Status CHACHO MULLER 03/25/2023 14:04:15 Final Warfarin Therapy
INR: 2 .0-3.0 conventional anticoagulation
INR: 2.5- 3.5 high intensity anticoagulation Observation Date Value Abnormality Reference (Units ) Status PT 03/25/2023 14:04:15 25.4 Above high normal 11 .6-15.2 (seconds) Final INR 03/25/2023 14:04:15 2.3 Above high normal 0. 8-1.2 Final Performing Location [facility]ATORY [facility] [place] - [address] [place] [address]
--- OUTSIDE RECORDS SUMMARY | 2023-04-17 18:32 | External Medical Summary | Summary of Care ---
Author Name Unknown Organization [facility] Address [address] [place] [address] Phone [phone] Care Team Providers Care Card Painter Name Role Phone Casey Rodgers MD Primary Care Provider Reason for Visit * Reason Comments Dosage Adjustment Via Phone (anticoag Cl inic) Encounter Details Date Type Department Care Team (Latest Contact Info) Description 03/26/2023 7:00 AM EST Anticoagulation Pharmacy, [address] [place] [address] [place] [address] Paroxysmal atrial fibrillation (HCC)* Allergies Active Allergy Reactions Criticality Noted Date Comments Chlorhexidine Itching 09/10/2020 Hydrochlorothiazide Other (Please comment) 02/26/2017 Caused pancreatitis Metronidazole 02/09/2017 Pill causes severe diarrhea Ondansetron Other (Please comment) High 03/04/2018 TAYLOR documented as of this encounter (statuses as of 03/26/2023) Medications Medication Sig Dispensed Refills Start Date [...] Tablet by mouth at bedtime. 0 Active Pvpnbaqsnc-QFJY-Xf ffeine 50-325-40 MG Oral Tablet Take 1 [...] as of this encounter (statuses as of 03/26/2023) Active Problems Problem Noted Date Diagnosed Date [...] as of this encounter (statuses as of 03/26/2023) Social History Tobacco Use Types Packs/Day Years [...] or making decisions? (5 years old or older) No 04/30/2017 documented as of this encounter Progress Notes * Shirley Rodriguez, [facility] [place] - 03/26/2023 8:18 AM EST Medication Therapy Disease Management - Anticoagulation Patient: Alexia Campos | : 1945 Subjective Contacts Type Contact Phone/Fax 03/26/2023 09:08 AM EST Phone (Outgoing) GIOYESICA (Emergency Contact) [phone] Spoke to Patient Patient-Reported Symptoms: Patient Findings Negatives: Signs/symptoms of thrombosis, Signs/symptoms of bleeding, Change in health, Change in alcohol use, Change in activity, Upcoming invasive procedure, Missed doses, Extra doses, Change in medications, Change in diet/appetite, Bruising Objective Current Warfarin Dose As of 03/26/2023 Warfarin maintenance plan: 0 mg every Mon; 2.5 mg (5 mg x 0.5) all other days INR Result As of 03/26/2023 INR goal: 2.0-3.0 INR used for dosin.3 (03/25/2023) Assessment & Plan Warfarin Plan As of 03/26/2023 Full warfarin instructions: 0 mg every Mon; 2.5 mg all other days No change documented: Shirley Rodriguez RPh Next INR check: 04/08/2023 Repeat PT/INR in 2 week(s) Weekly dose: not changed Additional Dosing Information: Description Ensure Shirley Rodriguez RPh Clinical Pharmacist 03/26/2023, 8:18 AM documented in this encounter Plan of Treatment Upcoming Encounters Date Type Department Care Team (Late st Contact Info) Description 04/08/2023 1:40 PM EST Anticoagulation Pharmacy, [address] [place] [address] [place] [address] Health Maintenance Due Date Last Done Comments Depression Screening 1956 Albumin/Creatinine Ratio 1962 Hepatitis C Screening 1962 DTaP,Tdap,and Td Vaccines (1 - Tdap) 12/21/1963 LUNG CANCER SCREENING - USE SMARTSET 05160 1994 Zoster Vaccines (1 of 2) 1994 DXA Scan 12/26/2021 12/26/2014 COVID-19 Vaccine ( season) 2023 07/05/2020, 06/07/2020 Influenza Vaccine (FLU shot) (#1) 2023 GFR 03/20/2023 03/20/2022, 10/08, 05/03/2017, Additional history exists Pneumococcal Vaccine: 65+ Years Completed 03/15/2019, 03/04/2016 GARDASIL-HPV IMMUNIZATION SERIES Aged Out No longer eligible based on patient's age to complete this topic Hepatitis B Aged Out No longer eligi ble based on patient's age to complete this topic MENINGOCOCCAL (MENACTRA/MENVEO) Aged Out No longer eligible based on patient's age to complete this topic documented as of this encounter Medical Devices Implanted Type Area Financial Services Education Consultant Device Identifier Shelf Expiration Date Model / Serial / Lot Dbx 10cc [id number] - [id number] - [id number] Implanted:Qty : 1 on 01/11/2015 by Colin Krause MD at OR [facility] [place] Tissue - Human N/A: Spine Lumbar MUSCULOSKELETAL TRANSPLANT FND 08/18/2016 [id number] / [id number] / Chip Cancellous 90cc [id number] - [id number] Implanted:Qty : 1 on 04/30/2017 by Colin Krause MD at OR [facility] [place] Tissue - Human N/A: Spine Lumbar MUSCULOSKELETAL TRANSPLANT FND 01/29/2018 [id number] / / Expedium Ti Sfx 5.5 Lat A2 - [id number] Implanted:Qty : 1 on 01/11/2015 by Colin Krause MD at OR [facility] [place] N/A: Spine Lumbar JNJ : [employer] [id number] / / Expedium Ti Sfx 5.5 Lat A6 - [id number] Implanted:Qty : 2 on 04/30/2017 by Colin Krause MD at OR [facility] [place] N/A: Spine Lumbar JNJ : [employer] [id number] / / documented as of this encounter [...] the patient have Health Care Power of Financial Institution President? No Care Teams Card Painter Relationship Specialty Start Date End Date Casey Rodgers MD [address] [place] [address] PCP - General Family Medicine 09/04/14 documented as of this encounter"
--- OUTSIDE RECORDS SUMMARY | 2023-04-17 18:32 | External Medical Summary ---
Author Name Unknown Address Unknown Organization : Laboratory Report Ordering Provider Test Date Status JESÚS MULLERDANIA 03/08/2023 14:12:55 Final Therapeutic ranges for non-o perative patients:
Prophylaxsis/treatment of DVT: (Range:2.0-3.0)
Treatment of pulmonary embolism:(Range:2.0-3.0)
Prevention of systemic embolism from:
-tissue heart valves
-acute myocardial infarction
-valvular heart disease
-atrial fibrillation
(Range: 2.0-3.0)
Mechanical prosthetic valves: (Range: 2.5-3.5) Observation Date Value Abnormality Reference (Units ) Status INR in Capillary blood by Coagulation assay 03/08/2023 14:12:55 1.5 (INR) Final Performing Location
--- OUTSIDE RECORDS SUMMARY | 2023-04-17 18:32 | External Medical Summary ---
Author Name Unknown Address Unknown Organization : Laboratory Report Ordering Provider Test Date Status JESÚS MULLERDANIA 03/18/2023 14:45:45 Final Therapeutic ranges for non-o perative patients:
Prophylaxsis/treatment of DVT: (Range:2.0-3.0)
Treatment of pulmonary embolism:(Range:2.0-3.0)
Prevention of systemic embolism from:
-tissue heart valves
-acute myocardial infarction
-valvular heart disease
-atrial fibrillation
(Range: 2.0-3.0)
Mechanical prosthetic valves: (Range: 2.5-3.5) Observation Date Value Abnormality Reference (Units ) Status INR in Capillary blood by Coagulation assay 03/18/2023 14:45:45 2.0 (INR) Final Performing Location
--- OUTSIDE RECORDS SUMMARY | 2023-04-17 18:32 | External Medical Summary | Summary of Care ---
Author Name Unknown Organization [facility] Address [address] [place] [address] Phone [phone] Care Team Providers Care Radiology Therapist Name Role Phone Casey Rodgers MD Primary Care Provider Reason for Visit * Reason Comments Dosage Adjustment In Person (Anticoag Cl inic) Encounter Details Date Type Department Care Team (Latest Contact Info) Description 04/08/2023 1:40 PM [facility] Anticoagulation Pharmacy, [address] [place] [address] [place] [address] Paroxysmal atrial fibrillation (HCC)*; Anticoagulation management encounter; [facility] current use of anticoagulant therapy Allergies Active Allergy Reactions Criticality Noted Date Comments Chlorhexidine Itching 09/10/2020 Hydrochlorothiazide Other (Please comment) 02/26/2017 Caused pancreatitis Metronidazole 02/09/2017 Pill causes severe diarrhea Ondansetron Other (Please comment) High 03/04/2018 TAYLOR documented as of this encounter (statuses as of 04/08/2023) Medications Medication Sig Dispensed Refills Start Date [...] Tablet by mouth at bedtime. 0 Active Pzpcamzlnu-JSKK-Dy ffeine 50-325-40 MG Oral Tablet Take 1 [...] 15 minutes 25 Tablet 5 02/26/2023 Active Nitroglycerin 0.4 MG/HR Transdermal Patch 24 Hour (Nitro-Dur) Place on patch daily in the morning. Remove at bedtime. 90 Patch 3 04/05/2023 Active documented as of this encounter (statuses as of 04/08/2023) Active Problems Problem Noted Date Diagnosed Date [...] as of this encounter (statuses as of 04/08/2023) Social History Tobacco Use Types Packs/Day Years [...] this encounter Progress Notes * Janice Dior, Former[facility] - 04/08/2023 1:32 PM EST Images from the original note were not included. Medication Therapy Disease Management - Anticoagulation Patient: Alexia Campos | : 1945 Subjective Patient-Reported Symptoms: Patient Findings Negatives: Signs/symptoms of thrombosis, Signs/symptoms of bleeding, Change in health, Change in alcohol use, Change in activity, Upcoming invasive procedure, Missed doses, Extra doses, Change in medications, Change in diet/appetite, Bruising Objective Current Warfarin Dose As of 04/08/2023 Warfarin maintenance plan: 0 mg every Mon; 2.5 mg (5 mg x 0.5) all other days INR Result As of 04/08/2023 INR goal: 2.0-3.0 INR used for dosin.2 (04/08/2023) Assessment & Plan Warfarin Plan As of 04/08/2023 Full warfarin instructions: 04/08: 5 mg; Otherwise 0 mg every Mon; 2.5 mg all other days Next INR check: 04/22/2023 Repeat PT/INR in 2 week(s) Weekly dose: not changed Additional Dosing Information: Reports she has been sick last several days. Denies any missed doses. States she does not currentlyuse a pill box. Encouraged to do so for warfarin. Patient agreeable. Will plan to bolus today and recheck x2 week to further assess. Description Ensure Janice Dior [facility] Clinical Pharmacist 04/08/2023, 1:32 PM documented in this encounter Plan of Treatment Upcoming Encounters Date Type Department Care Team (Late st Contact Info) Description 04/22/2023 2:10 PM EST Anticoagulation Pharmacy, [address] [place] [phone] [place] [address] Health Maintenance Due Date Last Done Comments Depression Screening 1956 Albumin/Creatinine Ratio 1962 Hepatitis C Screening 1962 DTaP,Tdap,and Td Vaccines (1 - Tdap) 12/21/1963 LUNG CANCER SCREENING - USE SMARTSET 02323 1994 Zoster Vaccines (1 of 2) 1994 DXA Scan 12/26/2021 12/26/2014 COVID-19 Vaccine (3 - season) 2023 07/05/2020, 06/07/2020 Influenza Vaccine (FLU [...] this encounter Medical Devices Implanted Type Area Multiplex Operator Device Identifier Shelf Expiration Date Model / Serial / Lot Dbx 10 [id number] - [id number] - [id number] Implanted:Qty : 1 on 01/11/2015 [place] Krause [place] [facility] [place] - Human N/A: Spine Lumbar MUSCULOSKELETAL TRANSPLANT FND 08/18/2016 [id number] / [id number] / Chip Cancellous 90cc [id number] - [id number] Implanted:Qty : 1 on 04/30/2017 by [place] Krause [place] [facility] [place] - Human N/A: Spine Lumbar MUSCULOSKELETAL TRANSPLANT FND 01/29/2018 [id number] / / Expedium Ti Sfx 5.5 Lat A2 - [id number] Implanted:Qty : 1 on 01/11/2015 by [place] Krause MD [place] [facility] [place]/A: Spine Lumbar JNJ : [employer] [id number] / / Expedium Ti Sfx 5.5 Lat A6 - [id number] Implanted:Qty : 2 on 04/30/2017 by [place] Krause [place] [facility] [place]A: Spine Lumbar JNJ : [employer] [id number] / / documented as of this encounter Procedures Procedure Name Priority Date/Time Associated Diagnosis Comments INR FINGERSTICK, POINT OF CARE STAT 04/08/2023 1:45 PM EST Paroxysmal atrial fibrillation (HCC) Anticoagulation management encounter roasterman current use of anticoagulant therapy documented in this encounter Results * INR FINGERSTICK, POINT OF CARE (04/08/2023 1:45 PM EST) Fingerstick INR 1.2 INR 1:47 PM EST [facility] [place] [id number] Blood 04/08/2023 1:45 PM EST 04/08/2023 1:47 PM EST Narrative [facility] [place] [facility]-00 - 04/08/2023 1:47 PM EST Therapeutic ranges for non-operative patients: Prophylaxsis/treatment of DVT: (Range:2.0-3.0) Treatment of pulmonary embolism:(Range:2.0-3.0) Prevention of systemic embolism from: -tissue heart valves -acute myocardial infarction -valvular heart disease -atrial fibrillation (Range: 2.0-3.0) Mechanical prosthetic valves: (Range: 2.5-3.5) Janice Dior [facility] POINT OF CARE TEST DOCKED DEVICE [facility]OLIC[facility] [address] [address] documented in this encounter Visit Diagnoses Diagnosis Paroxysmal atrial fibrillation (HCC)- Primary Atrial fibrillation Anticoagulation management encounter Encounter for therapeutic drug monitoring roasterman current use of anticoagulant therapy documented in this encounter Advance Directives Latest Code Status on File Code Status Date Activated Date Inactivated Comments Full Code 04/30/2017 7:41 AM 05/04/2017 4:50 PM Th is order reflects the patients wishes and were [...] the patient have Health Care Power of Mortgage Analyst? No Care Teams Radiology Therapist Relationship Specialty Start Date End Date Casey Rodgers MD [address] [place] [address] PCP - General Family Medicine 09/04/14 documented as of this encounter"
--- OUTSIDE RECORDS SUMMARY | 2023-04-17 18:32 | External Medical Summary | Summary of Care ---
Author Name Unknown Organization [facility] Address [address] [place] [address] Phone [phone] Care Team Providers Care Grinding Machine Operator Automatic Name Role Phone Casey Rodgers MD Primary Care Provider + [phone] Reason for Referral * Evaluate & Treat - Unlimited Visits (Within 3 days (urgent)) - Authorized Specialty Diagnoses / Procedures Referred By Luis fitzgerald Referred To Contact ANTI-COAG CLINIC / Pharmacy Diagnoses Paroxysmal atrial fibrillation (HCC) Mac Christianson, DO [address] [place] [address] Referral ID Status Reason Start Date Expiration Date Visits Requested Visits Authorized [id number] Authorized Specialty Services Required 02/05/2023 08/04/2023 99 99 Question Answer Referral Priority Within 3 days (urgent) Comments Indication for Anticoagulation: Diagnosis: paroxysmal atrial fibrillation Relevant History: Recent hemorrhoidal bleeding, Previously had been on Eliquis, however transitioning to Coumadin due to cost concerns with Eliquis costing over $400 / month. Initiation date of anticoagulation: 02/05/2023 . Expected duration of Anticoagulation therapy: Lifetime Target INR range (indicate desired range): Atrial Fibrillation 2.0 - 3.0 Referral for Low Molecular Weight Therapy: N/A Minimum frequency patient should be seen in person for medication management: as appropriate per clinical condition and patient status By my signature, I understand that my patient Alexia Campos will have her medication therapy managed by the [facility] Medication Therapy Disease Management Clinic ([facility]) per established policies, procedures, and protocols. I also certify that this referral may serve as an initiation of service for the management of drug therapy in the above noted patient. [facility] providers will be responsible for scheduling patient visits, obtaining appropriate laboratory studies, and adjusting medication management therapy per patient's need, in addition to those roles spelled out in the clinic policy, procedures, and drug management protocols. I understand that the service provided by the [facility] Clinic is voluntary and have informed patient that they can refuse the service at their discretion. I am aware that the [facility] Clinic will provide me with a copy of the patient encounter via my [employer]. I authorize the [facility] Clinic to carry out these activities on my behalf. I consider this program to be a necessary part of the patient's medical care. Mac Christianson DO Reason for Visit * Reason Onset Date Comments Hospital Follow-Up 02/05/2023 Encounter Details Date Type Department Care Team (Late st Contact Info) Description 02/05/2023 Telephone Cardiology, [facility] [address] [place] [address] Mac Christianson DO [address] [place] [address] Hospital Follow-Up Allergies Active Allergy Reactions Criticality Noted Date Comments Chlorhexidine Itching 09/10/2020 Hydrochlorothiazide Other (Please comment) 02/26/2017 Caused pancreatitis Metronidazole 02/09/2017 Pill causes severe diarrhea Ondansetron Other (Please comment) High 03/04/2018 TAYLOR documented as of this encounter (statuses as of 03/26/2023) Medications Medication Sig Dispensed Refills Start Date End Date Status HYDROcodone-acetaminop hen 5-325 mg per tab 5-325 MG per tablet Take 1 Tab by mouth every 6 hours as needed for Pain, Mild. 90 Tab 0 07/20/2017 Active Calcium Carbonate-Vitamin D 500-125 MG-UNIT Oral Tablet Take by mouth daily. 0 Active Aspirin-Acetaminophen- Caffeine 250-250-65 MG Oral Tablet Take 2 Tablets [...] Tablet by mouth at bedtime. 0 Active Gcyqzllhwq-SVTV-Ggrfkp ne 50-325-40 MG Oral Tablet Take 1 Tablet [...] Oral Tablet Extended Release 24 Hour (toPROL XL)Indications:Paroxys mal atrial fibrillation (HCC),Localized edema Take 1 Tablet by mouth in the morning. 90 Tablet 3 12/17/2022 Active Spironolactone 25 MG Oral Tablet (Aldactone)Indications :Paroxysmal atrial fibrillation (HCC),Localized edema Take 1/2 tablet 5 days per week 45 Tablet 3 12/17/2022 Active Furosemide 40 MG Oral Tablet (Lasix)Indications:Par oxysmal atrial fibrillation (HCC),Localized edema Take 1/2 tablet 5 days per week 45 Tablet 3 12/17/2022 Active documented as of this encounter (statuses [...] Spinal stenosis 05/02/2017 GERD (gastroesophageal reflux disease) 12/24/201 7 SIRS (systemic inflammatory response syndrome) 1 [...] encounter Miscellaneous Notes * Telephone Encounter - Mac Christianson, - 02/05/2023 2:09 PM EDT Anticipate discharge from [facility] today. She had previously been on Eliquis for the treatment of paroxysmal atrial fibrillation. She was admitted for bright red blood per rectum. Eliquis was held. She underwent colonoscopy, source of bleeding thought to be hemorrhoidal bleeding which has since ceased.She is to resume anticoagulation without aspirin therapy. Plan to transition her from Eliquis due to Coumadin due to cost concerns as Eliquis cost was $400 per month for her. She would like to follow with the anticoagulation clinic in [place]. Cardio nursing, please forward this encounter to the [facility] pool. Dr Lockhart copied as an FYI. Please help arrange post hospital follow up visit within a month. Mac Christianson DO documented in this encounter Plan of Treatment Upcoming Encounters Date Type Department Care Team (Late st Contact Info) Description 04/08/2023 1:40 PM EST Anticoagulation Pharmacy, [address] [place] [address] [place] [address] Scheduled Referrals Name Type Priority Associated Diagnoses Orde r Schedule ANTI-COAGULATION REFERRAL OP Referral Within 3 days (urgent) Paroxysmal atrial fibrillation (HCC) Ordered: 02/05/2023 Health Maintenance Due Date Last Done Comments Depression Screening 1957 Albumin/Creatinine Ratio 1962 Hepatitis C Screening 1962 DTaP,Tdap,and Td Vaccines (1 - Tdap) 12/21/1963 LUNG CANCER SCREENING - USE SMARTSET 86282 1994 Zoster Vaccines (1 of 2) 1994 [...] this encounter Medical Devices Implanted Type Area Mechanical Reliability Engineer Device Identifier Shelf Expiration Date Model / Serial / Lot Dbx 10cc [id number] - [id number] - [id number] Implanted:Qty : 1 on 01/11/2015 by Colin Krause MD [place] [facility] [place] Tissue - Human N/A: Spine Lumbar MUSCULOSKELETAL TRANSPLANT FND 08/18/2016 [id number] / [id number] / Chip Cancellous 90cc [id number] - [id number] Implanted:Qty : 1 on 04/30/2017 by Colin Krause MD [place] [facility] [place] Tissue - Human N/A: Spine Lumbar MUSCULOSKELETAL TRANSPLANT FND 01/29/2018 [id number] / / Expedium Ti Sfx 5.5 Lat A2 - [id number] Implanted:Qty : 1 on 01/11/2015 by Colin Krause MD at [place] [facility] [place] N/A: Spine Lumbar JNJ : [employer] [id number] / / Expedium Ti Sfx 5.5 Lat A6 - [id number] Implanted:Qty : 2 on 04/30/2017 by Colin Krause MD [place] [facility] [place] N/A: Spine Lumbar JNJ : [employer] [id number] / / documented as of this encounter [...] the patient have Health Care Power of Java Application Developer? No Care Teams Grinding Machine Operator Automatic Relationship Specialty Start Date End Date Casey Rodgers MD [address] [place] [address] PCP - General Family Medicine 09/04/14 documented as of this encounter
--- OUTSIDE RECORDS SUMMARY | 2023-04-17 18:32 | External Medical Summary | Summary of Care ---
Author Name Unknown Organization [facility] Address [address] [place] [address] Phone [phone] Care Team Providers Care Health Information Clerk Name Role Phone Casey Rodgers MD Primary Care Provider [phone] Reason for Visit * Reason Onset Date Comments Advice 04/02/2023 Test results Encounter Details Date Type Department Care Team (Late st Contact Info) Description 04/02/2023 Telephone Cardiology, [facility] [address] [place] [address] Mac Christianson, [address] [place] [address] Advice (Test results) Allergies Active Allergy Reactions Criticality Noted Date Comments Chlorhexidine Itching 09/10/2020 Hydrochlorothiazide Other (Please comment) 02/26/2017 Caused pancreatitis Metronidazole 02/09/2017 Pill causes severe diarrhea Ondansetron Other (Please comment) High 03/04/2018 TAYLOR documented as of this encounter (statuses as of 04/06/2023) Medications Medication Sig Dispensed Refills Start Date End Date Status HYDROcodone-aceta minophen 5-325 mg per tab 5-325 MG per tablet Take 1 Tab by mouth every 6 hours as needed for Pain, Mild. 90 Tab 0 07/20/2017 Active Calcium Carbonate-Vitamin D 500-125 MG-UNIT Oral Tablet Take by mouth daily. 0 Act lola Aspirin-Acetamino phen-Caffeine 250-250-65 MG Oral Tablet Take [...] Tablet by mouth at bedtime. 0 Active Jcqmkxbduf-IEJN-B affeine 50-325-40 MG Oral Tablet Take 1 [...] Active Nitroglycerin 0.4 MG Sublingual Tablet Sublingual (Nitrostat)Indica tions:CAD (coronary artery disease) Place 1 Tablet under the tongue every 5 minutes as needed for Pain, Chest. up to 3 doses in 15 minutes 25 Tablet 5 02/26/2023 Active Nitroglycerin 0.4 MG/HR Transdermal Patch 24 Hour (Nitro-Dur) Place on patch daily in the morning. Remove at bedtime. 90 Patch 3 04/05/2023 Active Isosorbide Mononitrate ER 30 MG Oral Tablet Extended Release 24 Hour (Imdur) TAKE 1 TABLET BY MOUTH ONCE DAILY IN THE MORNING 0 11/10/2022 04/05/20 Discontinu ed(Medicat ion/Dose Changed) documented as of this encounter (statuses as of 04/06/2023) Active Problems Problem Noted Date Diagnosed Date [...] as of this encounter (statuses as of 04/06/2023) Social History Tobacco Use Types Packs/Day Years [...] encounter Miscellaneous Notes * Telephone Encounter - Pamela Casillas LPN - 04/06/2023 8:27 AM EST Attempt to call patient unsuccessful; could not leave message on patient's home/work/mobile phone as voicemail box was full. Will have to attempt call again at a later time. If patient returns call please advise of results and recommendations below. * Telephone Encounter - Mac Christianson DO - 04/05/2023 5:36 PM EST Notes from the 03/31/23 ED visit reviewed. Agree with advice as documented, with regards to taking furosemide 5 days per week or daily with potassium supplement as prescribed. Prior order for Imdur discontinued. Sent order for nitroglycerin patch, as I had previously recommended during prior hospital encounter, 90 day supply with refills to [facility] mail order pharmacy. Mac Christianson DO * Telephone Encounter - Edwige Griffin OSA - 04/02/2023 10:25 AM EST PT calling to see if her machine molder squeeze could look at the tests she had completed while in the hospital and see if the doctor has any input or would like to make any changes to any medications. Please advise Pt is also asking for a prescription for the Nitroglycerin patches, she said they work much better than the tablets. documented in this encounter Plan of Treatment Upcoming Encounters Date Type Department Care Team (Late st Contact Info) Description 04/08/2023 1:40 PM EST Anticoagulation Pharmacy, [address] [place] [address] [place] [address] Health Maintenance Due Date Last Done Comments Depression Screening 1956 Albumin/Creatinine Ratio 1962 Hepatitis C Screening 1962 DTaP,Tdap,and Td Vaccines (1 - Tdap) 12/21/1963 LUNG CANCER SCREENING - USE SMARTSET 46670 1994 Zoster Vaccines (1 of 2) 1994 [...] this encounter Medical Devices Implanted Type Area Phone Circuit Operator Device Identifier Shelf Expiration Date Model / Serial / Lot Dbx 10cc [id number] - [id number] - [id number] Implanted:Qty : 1 on 01/11/2015 by Colin Krause [place] [facility] [place] - Human N/A: Spine Lumbar MUSCULOSKELETAL TRANSPLANT FND 08/18/2016 [id number] / [id number] / Chip Cancellous 90cc [id number] - [id number] Implanted:Qty : 1 on 04/30/2017 by Colin Krause MD [place] [facility] [place] Tissue - Human N/A: Spine Lumbar MUSCULOSKELETAL TRANSPLANT FND 01/29/2018 [id number] / / Expedium Ti Sfx 5.5 Lat A2 - [id number] Implanted:Qty : 1 on 01/11/2015 by Colin Krause MD [place] [facility] [place] N/A: Spine Lumbar JNJ : [employer] [id number] / / Expedium Ti Sfx 5.5 Lat A6 - [id number] Implanted:Qty : 2 on 04/30/2017 by Colin Krause MD [place] [facility] [place] N/A: Spine Lumbar JNJ : [employer] [id number] / / documented as of this encounter [...] the patient have Health Care Power of Section Repairer? No Care Teams Health Information Clerk Relationship Specialty Start Date End Date Casey Rodgers MD [address] [place] [address] PCP - General Family Medicine 09/04/14 documented as of this encounter
--- OUTSIDE RECORDS SUMMARY | 2023-04-17 18:32 | External Medical Summary ---
Author Name Unknown Address Unknown Organization : Laboratory Report Ordering Provider Test Date Status JESÚS MULLERDANIA 03/04/2023 13:53:02 Final Therapeutic ranges for non-o perative patients:
Prophylaxsis/treatment of DVT: (Range:2.0-3.0)
Treatment of pulmonary embolism:(Range:2.0-3.0)
Prevention of systemic embolism from:
-tissue heart valves
-acute myocardial infarction
-valvular heart disease
-atrial fibrillation
(Range: 2.0-3.0)
Mechanical prosthetic valves: (Range: 2.5-3.5) Observation Date Value Abnormality Reference (Units ) Status INR in Capillary blood by Coagulation assay 03/04/2023 13:53:02 2.4 (INR) Final Performing Location
--- OUTSIDE RECORDS SUMMARY | 2023-04-17 18:32 | External Medical Summary ---
Author Name Unknown Address Unknown Organization : Laboratory Report Ordering Provider Test Date Status YOHANAJESÚSDANIA 03/15/2023 15:10:00 Final Therapeutic ranges for non-o perative patients:
Prophylaxsis/treatment of DVT: (Range:2.0-3.0)
Treatment of pulmonary embolism:(Range:2.0-3.0)
Prevention of systemic embolism from:
-tissue heart valves
-acute myocardial infarction
-valvular heart disease
-atrial fibrillation
(Range: 2.0-3.0)
Mechanical prosthetic valves: (Range: 2.5-3.5) Observation Date Value Abnormality Reference (Units ) Status INR in Capillary blood by Coagulation assay 03/15/2023 15:10:00 3.5 (INR) Final Performing Location
--- OUTSIDE RECORDS SUMMARY | 2023-04-17 18:32 | External Medical Summary ---
Author Name Unknown Address Unknown Organization : Laboratory Report Ordering Provider Test Date Status JESÚS MULLERDANIA 04/08/2023 13:45:45 Final Therapeutic ranges for non-o perative patients:
Prophylaxsis/treatment of DVT: (Range:2.0-3.0)
Treatment of pulmonary embolism:(Range:2.0-3.0)
Prevention of systemic embolism from:
-tissue heart valves
-acute myocardial infarction
-valvular heart disease
-atrial fibrillation
(Range: 2.0-3.0)
Mechanical prosthetic valves: (Range: 2.5-3.5) Observation Date Value Abnormality Reference (Units ) Status INR in Capillary blood by Coagulation assay 04/08/2023 13:45:45 1.2 (INR) Final Performing Location
--- OUTSIDE RECORDS SUMMARY | 2023-04-17 18:32 | External Medical Summary | Summary of Care ---
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 0 Active Suhrpmtqqj-WSOL-Go ffeine 50-325-40 MG Oral Tablet Take 1 [...] as of this encounter (statuses as of 03/08/2023) Active Problems Problem Noted Date Diagnosed Date [...] as of this encounter (statuses as of 03/08/2023) Social History Tobacco Use Types Packs/Day Years [...] this encounter Progress Notes * Janice Dior, [facility] - 03/08/2023 2:08 PM EDT Images from the original note [...] Bruising Objective Current Warfarin Dose As of 03/08/2023 Warfarin maintenance plan: 2.5 mg (5 mg x 0.5) every day INR Result As of 03/08/2023 INR goal: 2.0-3.0 INR used for dosin.5 (03/08/2023) Assessment & Plan Warfarin Plan As of 03/08/2023 Full warfarin instructions: 2.5 mg every day No change documented: Janice Dior RPh Next INR check: 03/11/2023 Repeat PT/INR in 3 day(s) Weekly dose: not changed Additional Dosing Information: Description Ensure Janice Dior RPh Clinical Pharmacist 03/08/2023, 2:08 PM documented in this encounter Plan of Treatment Upcoming Encounters Date Type Department Care Team (Late st Contact Info) Description 03/11/2023 2:20 PM EDT Anticoagulation Pharmacy, [address] [place] [address] [place] [address] 05/25/2023 1:30 PM EST Office Visit Cardiology [address] [place] [address] Sterling Lockhart MD [address] [place] [address] Health Maintenance Due Date Last Done Comments Pneumococcal Vaccine: 65+ Years (1 - PCV) 1950 Depression Screening 1956 Albumin/Creatinine Ratio 1962 Hepatitis C Screening 1962 DTaP,Tdap,and Td Vaccines (1 - Tdap) 12/21/1963 LUNG CANCER SCREENING - USE SMARTSET 76649 1994 Zoster Vaccines (1 of 2) 1994 [...] this encounter Medical Devices Implanted Type Area Oral And Maxillofacial Surgery Device Identifier Shelf Expiration Date Model / Serial / Lot Dbx 10cc [id number] - [id number] - [id number] Implanted:Qty : 1 on 01/11/2015 by Colin Krause MD at OR [facility] Tissue - Human N/A: Spine Lumbar MUSCULOSKELETAL TRANSPLANT FND 08/18/2016 [id number] / [id number] / Chip Cancellous 90cc [id number] - [id number] Implanted:Qty : 1 on 04/30/2017 by Colin Krause MD at OR [facility] Tissue - Human N/A: Spine Lumbar MUSCULOSKELETAL TRANSPLANT FND 01/29/2018 [id number] / / Expedium Ti Sfx 5.5 Lat A2 - [id number] Implanted:Qty : 1 on 01/11/2015 by Colin Krause MD at OR [facility] N/A: Spine Lumbar JNJ : [employer] [id number] / / Expedium Ti Sfx 5.5 Lat A6 - [id number] Implanted:Qty : 2 on 04/30/2017 by Colin Krause MD at OR [facility] N/A: Spine Lumbar JNJ : [employer] [id number] / / documented as of this encounter Procedures Procedure Name Priority Date/Time Associated Diagnosis Comments INR FINGERSTICK, POINT OF CARE STAT 03/08/2023 2:12 PM EDT Paroxysmal atrial fibrillation (HCC) Anticoagulation management encounter intermediate frame tender current use of anticoagulant therapy documented in this encounter Results * INR FINGERSTICK, POINT OF CARE (03/08/2023 2:12 PM EDT) Fingerstick INR 1.5 INR 2:14 PM EDT [facility] [place] [id number] Blood 03/08/2023 2:12 PM EDT 03/08/2023 2:14 PM EDT Narrative [facility] [place] [facility]-00 - 03/08/2023 2:14 PM EDT Therapeutic ranges for non-operative patients: Prophylaxsis/treatment of DVT: (Range:2.0-3.0) Treatment of pulmonary embolism:(Range:2.0-3.0) Prevention of systemic embolism from: -tissue heart valves -acute myocardial infarction -valvular heart disease -atrial fibrillation (Range: 2.0-3.0) Mechanical prosthetic valves: (Range: 2.5-3.5) Janice Dior [facility] LAB POINT OF CARE TEST DOCKED DEVICE UNSOLICITED RESULTS [facility] [place] [address] [place] [address] documented in this encounter Visit Diagnoses Diagnosis Paroxysmal atrial fibrillation (HCC)- Primary Atrial fibrillation Anticoagulation management encounter Encounter for therapeutic drug monitoring halfway current use of anticoagulant therapy documented in [...] the patient have Health Care Power of Nursing Teacher? No Care Teams Handle Finisher Relationship Specialty Start Date End Date Casey Rodgers MD [address] [place] [address] PCP - General Family Medicine 09/04/14 documented as of this encounter"
--- OUTSIDE RECORDS SUMMARY | 2023-04-17 18:32 | External Medical Summary | Summary of Care ---
Author Name Unknown Organization [facility] Address [address] [place] [address] Phone [phone] Care Team Providers Care Tie Cutter Name Role Phone Casey Rodgers MD Primary Care Provider [phone] Reason for Visit * Reason Onset Date Comments Advice 04/02/2023 Test results Encounter Details Date Type Department Care Team (Late st Contact Info) Description 04/02/2023 Telephone Cardiology, [facility] [address] [place] [address] Mac Christianson, [address] [place] [address] Advice (Test results) Allergies Active Allergy Reactions Criticality Noted Date Comments Chlorhexidine Itching 09/10/2020 Hydrochlorothiazide Other (Please comment) 02/26/2017 Caused pancreatitis Metronidazole 02/09/2017 Pill causes severe diarrhea Ondansetron Other (Please comment) High 03/04/2018 TAYLOR documented as of this encounter (statuses as of 04/15/2023) Medications Medication Sig Dispensed Refills Start Date [...] Tablet by mouth at bedtime. 0 Active Znqhbezvqc-HWPM-M affeine 50-325-40 MG Oral Tablet Take 1 [...] as of this encounter (statuses as of 04/15/2023) Active Problems Problem Noted Date Diagnosed Date [...] as of this encounter (statuses as of 04/15/2023) Social History Tobacco Use Types Packs/Day Years [...] encounter Miscellaneous Notes * Telephone Encounter - Jory Ayala LPN - 04/15/2023 11:41 AM EST Sent letter * Telephone Encounter - Pamela Casillas LPN [...] encounter, 90 day supply with refills to [facility] mail order pharmacy. Mac Christianson DO * Telephone Encounter - Edwige Griffin OSA - 04/02/2023 10:25 AM EST PT calling to see if her leather goods maker could look at the tests she had [...] Description 04/22/2023 2:10 PM EST Anticoagulation Pharmacy, [address] [place] [address] [place] [address] Health Maintenance Due Date Last Done Comments Depression Screening 1956 Albumin/Creatinine Ratio 1962 Hepatitis C Screening 1962 DTaP,Tdap,and Td Vaccines (1 - Tdap) 12/21/1963 LUNG CANCER SCREENING - USE SMARTSET 41394 1994 Zoster Vaccines (1 of 2) 1994 [...] this encounter Medical Devices Implanted Type Area Sleeping Car Porter Device Identifier Shelf Expiration Date Model / Serial / Lot Dbx 10cc [id number] - [id number] - [id number] Implanted:Qty : 1 on 01/11/2015 by Colin Krause MD [place] [facility] [place] - Human N/A: Spine Lumbar MUSCULOSKELETAL TRANSPLANT FND 08/18/2016 [id number] / [id number] / Chip Cancellous 90cc [id number] - [id number] Implanted:Qty : 1 on 04/30/2017 by Colin Krause MD [place] [facility] [place] - Human N/A: Spine Lumbar MUSCULOSKELETAL TRANSPLANT FND 01/29/2018 [id number] / / Expedium Ti Sfx 5.5 Lat A2 - [id number] Implanted:Qty : 1 on 01/11/2015 by Colin Krause MD [place] [facility] [place] N/A: Spine Lumbar JNJ : [employer] [id number] / / Expedium Ti Sfx 5.5 Lat A6 - [id number] Implanted:Qty : 2 on 04/30/2017 by Colin Krause MD [place] [facility] [place] N/A: Spine Lumbar JNJ : [employer] [id number] / / documented as of this encounter [...] the patient have Health Care Power of Boat Deckhand? No Care Teams Tie Cutter Relationship Specialty Start Date End Date Casey Rodgers MD [address] [place] [address] PCP - General Family Medicine 09/04/14 documented as of this encounter
--- OUTSIDE RECORDS SUMMARY | 2023-04-17 18:32 | External Medical Summary | Summary of Care ---
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 0 Active Jjwaiwbnjv-XZYT-Pp ffeine 50-325-40 MG Oral Tablet Take 1 [...] as of this encounter (statuses as of 03/18/2023) Active Problems Problem Noted Date Diagnosed Date [...] as of this encounter (statuses as of 03/18/2023) Social History Tobacco Use Types Packs/Day Years [...] of this encounter Progress Notes * Janice Dior [facility] - 03/18/2023 2:35 PM EST Medication Therapy Disease Management - Anticoagulation Patient: Alexia Campos | : 1945 Subjective Patient-Reported Symptoms: Patient Findings Negatives: Signs/symptoms of thrombosis, Signs/symptoms of bleeding, Change in health, Change in alcohol use, Change in activity, Upcoming invasive procedure, Missed doses, Extra doses, Change in medications, Change in diet/appetite, Bruising Objective Current Warfarin Dose As of 03/18/2023 Warfarin maintenance plan: 2.5 mg (5 mg x 0.5) every day INR Result As of 03/18/2023 INR goal: 2.0-3.0 INR used for dosin.0 (03/18/2023) Assessment & Plan Warfarin Plan As of 03/18/2023 Full warfarin instructions: 0 mg every Mon; 2.5 mg all other days Next INR check: 03/25/2023 Repeat PT/INR in 1 week(s) Weekly dose: decreased to reflect last x7 days Additional Dosing Information: Description Ensure Janice Dior [facility] Clinical Pharmacist 03/18/2023, 2:35 PM documented in this encounter Plan of Treatment Upcoming Encounters Date Type Department Care Team (Late st Contact Info) Description 03/26/2023 7:00 AM EST Anticoagulation Pharmacy, [address] [place] [address] [place] [address] Health Maintenance Due Date Last Done Comments Pneumococcal Vaccine: 65+ Years (1 - PCV) 1950 Depression Screening 1956 Albumin/Creatinine Ratio 1962 Hepatitis C Screening 1962 DTaP,Tdap,and Td Vaccines (1 - Tdap) 12/21/1963 LUNG CANCER SCREENING - USE SMARTSET 29848 1994 Zoster Vaccines (1 of 2) 1994 [...] this encounter Medical Devices Implanted Type Area Tennis Coach Device Identifier Shelf Expiration Date Model / Serial / Lot Dbx 10cc [id number] - [id number] - [id number] Implanted:Qty : 1 on 01/11/2015 by [place] Krause MD [place] [facility] [place] - Human N/A: Spine Lumbar MUSCULOSKELETAL TRANSPLANT FND 08/18/2016 [id number] / [id number] / Chip Cancellous 90cc [id number] - [id number] Implanted:Qty : 1 on 04/30/2017 by Colin Krause MD [place] [facility] [place] Tissue - Human N/A: Spine Lumbar MUSCULOSKELETAL TRANSPLANT FND 01/29/2018 [id number] / / Expedium Ti Sfx 5.5 Lat A2 - [id number] Implanted:Qty : 1 on 01/11/2015 by Colin Krause MD [place] [facility] [place] N/A: Spine Lumbar JNJ : [employer] [id number] / / Expedium Ti Sfx 5.5 Lat A6 - [id number] Implanted:Qty : 2 on 04/30/2017 by Colin Krause MD [place] [facility] [place] N/A: Spine Lumbar JNJ : [employer] [id number] / / documented as of this encounter Procedures Procedure Name Priority Date/Time Associated Diagnosis Comments INR FINGERSTICK, POINT OF CARE STAT 03/18/2023 2:45 PM EST Paroxysmal atrial fibrillation (HCC) Anticoagulation management encounter alf current use of anticoagulant therapy documented in this encounter Results * INR FINGERSTICK, POINT OF CARE (03/18/2023 2:45 PM EST) Fingerstick INR 2.0 INR 3 2:47 PM EST [facility] [place] [facility]- Blood 03/18/2023 2:45 PM EST 03/18/2023 2:47 PM EST Narrative [facility] [place] [facility]- - 03/18/2023 2:47 PM EST Therapeutic ranges for non-operative patients: Prophylaxsis/treatment of DVT: (Range:2.0-3.0) Treatment of pulmonary embolism:(Range:2.0-3.0) Prevention of systemic embolism from: -tissue heart valves -acute myocardial infarction -valvular heart disease -atrial fibrillation (Range: 2.0-3.0) Mechanical prosthetic valves: (Range: 2.5-3.5) Janice Dior [facility] LAB POINT OF CARE TEST DOCKED DEVICE UNSOLICITED RESULTS [facility] [place] [address] [place] [address] documented in this encounter Visit Diagnoses Diagnosis Paroxysmal atrial fibrillation (HCC)- Primary Atrial fibrillation Anticoagulation management encounter Encounter for therapeutic drug monitoring alf current use of anticoagulant therapy documented in [...] the patient have Health Care Power of Tube Winder? No Care Teams Business Process Engineer Relationship Specialty Start Date End Date Casey Rodgers MD [address] [place] [address] PCP - General Family Medicine 09/04/14 documented as of this encounter"
--- OUTSIDE RECORDS SUMMARY | 2023-04-17 18:32 | External Medical Summary | Summary of Care ---
Author Name Unknown Organization [facility] Address [address] [place] [address] Phone [phone] Care Team Providers Care Pilot Plant Technician Name Role Phone Casey Rodgers MD Primary Care Provider Reason for Visit * Reason Comments Dosage Adjustment In Person (Anticoag Cl inic) Encounter Details Date Type Department Care Team (Latest Contact Info) Description 03/04/2023 1:40 PM EDT Anticoagulation Pharmacy, [address] [place] [phone] [place] [address] Paroxysmal atrial fibrillation (HCC)*; Anticoagulation management encounter; oil heaterman current use of anticoagulant therapy Allergies Active Allergy Reactions Criticality Noted Date Comments Chlorhexidine Itching 09/10/2020 Hydrochlorothiazide Other (Please comment) 02/26/2017 Caused pancreatitis Metronidazole 02/09/2017 Pill causes severe diarrhea Ondansetron Other (Please comment) High 03/04/2018 TAYLOR documented as of this encounter (statuses as of 03/04/2023) Medications Medication Sig Dispensed Refills Start Date [...] Tablet by mouth at bedtime. 0 Active Vmapwjvcwp-PJLS-Nb ffeine 50-325-40 MG Oral Tablet Take 1 [...] as of this encounter (statuses as of 03/04/2023) Active Problems Problem Noted Date Diagnosed Date [...] as of this encounter (statuses as of 03/04/2023) Social History Tobacco Use Types Packs/Day Years [...] this encounter Progress Notes * Janice Dior [facility] - 03/04/2023 1:36 PM EDT Medication Therapy Disease Management - Anticoagulation Patient: Alexia Campos | : 1945 Subjective Patient-Reported Symptoms: Patient Findings Positives: Hospital admission Negatives: Signs/symptoms of thrombosis, Signs/symptoms of bleeding, Change in health, Change in alcohol use, Change in activity, Upcoming invasive procedure, Missed doses, Extra doses, Change in medications, Change in diet/appetite, Bruising Objective Current Warfarin Dose As of 03/04/2023 Warfarin maintenance plan: 2.5 mg (5 mg x 0.5) every day INR Result As of 03/04/2023 INR goal: 2.0-3.0 INR used for dosin.1 (03/03/2023) Assessment & Plan Warfarin Plan As of 03/04/2023 Full warfarin instructions: 2.5 mg every day No change documented: Janice Dior RPh Next INR check: 03/08/2023 Repeat PT/INR in 4 day(s) Weekly dose: re-establishing Additional Dosing Information: Patient had recent [facility] admission 02/28 - 03/03. Per [facility] records, "S/p Cardiac cath on 03/02/23 with nonobstructive disease, recommend cont with medical management. Pt is requesting the nitro paste at home. She notably has used SL nitroglycerin excessively in the last two weeks. Defer to cardiology. - Discussed w/cardiology - STOP IMDUR, START NITRO patch - today pt is feeling well, denies any chest pain - plan to Dc pt home" INR therapeutic upon discharge. Will plan to resume HOOD MAKER dose with close f/u on 03/08. Description Ensure Janice Dior RPh Clinical Pharmacist 03/04/2023, 1:36 PM documented in this encounter Plan of Treatment Upcoming Encounters Date Type Department Care Team (Late st Contact Info) Description 03/08/2023 2:10 PM EDT Anticoagulation Pharmacy, [address] [place] [phone] [place] [address] 03/11/2023 2:20 PM EDT Anticoagulation Pharmacy, [address] [place] [address] [place] [address] 05/25/2023 1:30 PM EST Office Visit Cardiology [address] [place] [address] Sterling Lockhart MD [address] [place] [address] Health Maintenance Due Date Last Done Comments Pneumococcal Vaccine: 65+ Years (1 - PCV) 1950 Depression Screening 1956 Albumin/Creatinine Ratio 1962 Hepatitis C Screening 1962 DTaP,Tdap,and Td Vaccines (1 - Tdap) 12/21/1963 LUNG CANCER SCREENING - USE SMARTSET 23313 1994 Zoster Vaccines (1 of 2) 1994 [...] this encounter Medical Devices Implanted Type Area Bandage Wrapping Machine Operator Device Identifier Shelf Expiration Date Model / Serial / Lot Dbx 10cc [id number] - [id number] - [id number] Implanted:Qty : 1 on 01/11/2015 by Colin Krause [place] [facility] [place] - Human N/A: Spine Lumbar MUSCULOSKELETAL TRANSPLANT FND 08/18/2016 [id number] / [id number] / Chip Cancellous 90cc [id number] - [id number] Implanted:Qty : 1 on 04/30/2017 by Colin Krause MD [place] [facility] [place] - Human N/A: Spine Lumbar MUSCULOSKELETAL TRANSPLANT FND 01/29/2018 [id number] / / Expedium Ti Sfx 5.5 Lat A2 - [id number] Implanted:Qty : 1 on 01/11/2015 by Colin Krause MD [place] [facility] [place] N/A: Spine Lumbar JNJ : [employer] [id number] / / Expedium Ti Sfx 5.5 Lat A6 - [id number] Implanted:Qty : 2 on 04/30/2017 by Colin Krause MD [place] [facility] [place] N/A: Spine Lumbar JNJ : [employer] [id number] / / documented as of this encounter Procedures Procedure Name Priority Date/Time Associated Diagnosis Comments INR FINGERSTICK, POINT OF CARE STAT 03/04/2023 1:53 PM EDT Paroxysmal atrial fibrillation (HCC) Anticoagulation management encounter halfway current use of anticoagulant therapy OUTSIDE LAB-PT/INR Routine 03/03/2023 OUTSIDE LAB-PT/INR Routine 03/02/2023 OUTSIDE LAB-PT/INR Routine 03/01/2023 OUTSIDE LAB-PT/INR Routine 02/28/2023 documented in this encounter Results * INR FINGERSTICK, POINT OF CARE (03/04/2023 1:53 PM EDT) Fingerstick INR 2.4 INR 1:54 PM EDT [email or web address]- Blood 03/04/2023 1:53 PM EDT 03/04/2023 1:54 PM EDT Narrative [facility] - 03/04/2023 1:54 PM EDT Therapeutic ranges for non-operative patients: Prophylaxsis/treatment of DVT: (Range:2.0-3.0) Treatment of pulmonary embolism:(Range:2.0-3.0) Prevention of systemic embolism from: -tissue heart valves -acute myocardial infarction -valvular heart disease -atrial fibrillation (Range: 2.0-3.0) Mechanical prosthetic valves: (Range: 2.5-3.5) Janice Dior [facility] LAB POINT OF CARE TEST DOCKED DEVICE UNSOLICITED [place] [address] * OUTSIDE LAB-PT/INR (03/03/2023) [facility] INR-OUTSIDE LAB 2.1 03/03/2023 History Per Patient LABORATORY * OUTSIDE LAB-PT/INR (03/02/2023) [facility] INR-OUTSIDE LAB 2.3 03/02/2023 Narrative Resulting Agency Comment [facility] History Per Patient LABORATORY * OUTSIDE LAB-PT/INR (03/01/2023) [facility] INR-OUTSIDE LAB 1.8 03/01/2023 Narrative Resulting Agency Comment [facility] History Per Patient LABORATORY * OUTSIDE LAB-PT/INR (02/28/2023) [facility] INR-OUTSIDE LAB 1.4 02/28/2023 Narrative Resulting Agency Comment [facility] History Per Patient LABORATORY documented in this encounter Visit Diagnoses Diagnosis Paroxysmal atrial fibrillation (HCC)- Primary Atrial fibrillation Anticoagulation management encounter Encounter for therapeutic drug monitoring oil heaterman current use of anticoagulant therapy documented in [...] the patient have Health Care Power of Grain Packer? No Care Teams Pilot Plant Technician Relationship Specialty Start Date End Date Casey Rodgers MD [address] [place] [address] PCP - General Family Medicine 09/04/14 documented as of this encounter
--- OUTSIDE RECORDS SUMMARY | 2023-04-17 18:32 | External Medical Summary | Summary of Care ---
Author Name Unknown Organization [facility] Address [address] [place] [address] Phone [phone] Care Team Providers Care Assembler Engine Name Role Phone Casey Rodgers MD Primary Care Provider Reason for Visit * Reason Comments Outpatient Testing Encounter Details Date Type Department Care Team (Late st Contact Info) Description 03/25/2023 2:10 PM EST Laboratory Laboratory [address] [place] [phone] [place] [address] Paroxysmal atrial fibrillation (HCC); Anticoagulation management encounter; alf current use of anticoagulant therapy Allergies Active Allergy Reactions Criticality Noted Date Comments Chlorhexidine Itching 09/10/2020 Hydrochlorothiazide Other (Please comment) 02/26/2017 Caused pancreatitis Metronidazole 02/09/2017 Pill causes severe diarrhea Ondansetron Other (Please comment) High 03/04/2018 TAYLOR documented as of this encounter (statuses as of 03/25/2023) Medications Medication Sig Dispensed Refills Start Date [...] Tablet by mouth at bedtime. 0 Active Ekztlrpjoo-PRSY-Wm ffeine 50-325-40 MG Oral Tablet Take 1 [...] as of this encounter (statuses as of 03/25/2023) Active Problems Problem Noted Date Diagnosed Date [...] as of this encounter (statuses as of 03/25/2023) Social History Tobacco Use Types Packs/Day Years [...] Description 03/26/2023 7:00 AM EST Anticoagulation Pharmacy, [address] [place] [address] [place] [address] Pending Results Name Type Priority Associated Diagnoses Date /Time PT INR Lab Routine Paroxysmal atrial fibrillation (HCC) Anticoagulation management encounter alf current use of anticoagulant therapy 03/25/2023 2:04 PM EST Health Maintenance Due Date Last Done Comments Depression Screening 1956 Albumin/Creatinine Ratio 1962 Hepatitis C Screening 1962 DTaP,Tdap,and Td Vaccines (1 - Tdap) 12/21/1963 LUNG CANCER SCREENING - USE SMARTSET 53536 1994 Zoster Vaccines (1 of 2) 1994 [...] this encounter Medical Devices Implanted Type Area Wine Consultant Device Identifier Shelf Expiration Date Model / Serial / Lot Dbx 10cc [id number] - [id number] - [id number] Implanted:Qty : 1 on 01/11/2015 by Colin Krause MD [place] [facility] [place] Tissue - Human N/A: Spine Lumbar MUSCULOSKELETAL TRANSPLANT FND 08/18/2016 [id number] / [id number] / Chip Cancellous 90cc [id number] - [id number] Implanted:Qty : 1 on 04/30/2017 by Colin Krause MD at [place] [facility] [place] Tissue - Human N/A: Spine Lumbar MUSCULOSKELETAL TRANSPLANT FND 01/29/2018 [id number] / / Expedium Ti Sfx 5.5 Lat A2 - [id number] Implanted:Qty : 1 on 01/11/2015 by Colin Krause MD at [place] [facility] [place] N/A: Spine Lumbar JNJ : [employer] [id number] / / Expedium Ti Sfx 5.5 Lat A6 - [id number] Implanted:Qty : 2 on 04/30/2017 by Colin Krause MD at [place] [facility] [place] N/A: Spine Lumbar JNJ : [employer] [id number] / / documented as of this encounter Visit Diagnoses Diagnosis Paroxysmal atrial fibrillation (HCC) Atrial fibrillation Anticoagulation management encounter Encounter for [...] the patient have Health Care Power of Motor Coach Supervisor? No Care Teams Assembler Engine Relationship Specialty Start Date End Date Casey Rodgers MD [address] [place] [id number] PCP - General Family Medicine 09/04/14 documented as of this encounter
--- OUTSIDE RECORDS SUMMARY | 2023-04-17 18:33 | External Medical Summary | Summary of Care ---
Author Name Unknown Organization [facility] Address [address] [place] [address] Phone [phone] Care Team Providers Care Lawnmower Mechanic Name Role Phone Casey Rodgers MD Primary Care Provider [phone] Encounter Details Date Type Department Care Team Description 02/15/2023 Telephone Pharmacy, [address] [place] [phone] [facility] [address] [place] [address] Allergies Active Allergy Reactions Severity Noted Date Comments Chlorhexidine Itching 09/10/2020 Hydrochlorothiazide Other (Please comment) 02/26/2017 Caused pancreatitis Metronidazole 02/09/2017 Pill causes severe diarrhea Ondansetron Other (Please comment) High 03/04/2018 TAYLOR documented as of this encounter (statuses as of 02/15/2023) Medications Medication Sig Dispensed Refills Start Date [...] Tablet by mouth at bedtime. 0 Active Phwhyxmssc-PCXD-Di ffeine 50-325-40 MG Oral Tablet Take 1 [...] anticoagulation clinic 30 Tablet 5 02/08/2023 Active documented as of this encounter (statuses as of 02/15/2023) Active Problems Problem Noted Date Nonrheumatic mitral valve regurgitation 12/30/2022 Paroxysmal atrial fibrillation Chronic heart failure with preserved eje ction [...] as of this encounter (statuses as of 02/15/2023) Social History Tobacco Use Types Packs/Day Years [...] encounter Miscellaneous Notes * Telephone Encounter - Janice Dior [facility] - 02/15/2023 10:19 AM EDT Medication Therapy Disease Management - Anticoagulation Patient: Alexia Campos | : 1945 Subjective Patient-Reported Symptoms: Objective Current Warfarin Dose As of 02/15/2023 Warfarin maintenance plan: No maintenance plan INR Result As of 02/15/2023 INR goal: 2.0-3.0 INR used for dosing: Not available Assessment & Plan Warfarin Plan As of 02/15/2023 Full warfarin instructions: 02/15: 2.5 mg Next INR check: 02/16/2023 Repeat PT/INR in 1 day(s) Weekly dose: establishing Additional Dosing Information: Patient did not show for today's appointment. However, spouse and son showed up stating patient would like to reschedule to tomorrow as she is not feeling well today. Provided with dosing. OFS rescheduled for 02/16. Of note, patient's spouse also recently referred to [facility]. Will look towards matching appointments inthe future to reduce transportation burden. Description Ensure Janice Dior [facility] Clinical Pharmacist 02/15/2023, 10:19 AM documented in this encounter Plan of Treatment Upcoming Encounters Date Type Specialty Care Team Description 02/16/2023 Anticoagulation Pharmacy [address] [place] [address] 03/03/2023 Office Visit Cardiology Sterling Lockhart MD [address] [place] [address] 05/25/2023 Office Visit Cardiology Sterling Lockhart MD [address] [place] [address] Health Maintenance Due Date Last Done Comments Pneumococcal Vaccine: 65+ Years (1 - PCV) 1950 Depression Screening 1956 Albumin/Creatinine Ratio 1962 Hepatitis C Screening 1962 DTaP,Tdap,and Td Vaccines (1 - Tdap) 12/21/1963 LUNG CANCER SCREENING - USE SMARTSET 49455 1994 Zoster Vaccines (1 of 2) 1994 [...] this encounter Medical Devices Implanted Type Area Glass Fitter Device Identifier Shelf Expiration Date Model / Serial / Lot Dbx 10cc 917575 - [id number] - [id number] Implanted:Qty : 1 on 01/11/2015 by Colin Krause MD at [place] [facility] [place] Tissue - Human N/A: Spine Lumbar MUSCULOSKELETAL TRANSPLANT FND 08/18/2016 [id number] / [id number] / Chip Cancellous 90cc [id number] - [id number] Implanted:Qty : 1 on 04/30/2017 by Colin Krause MD at [place] [facility] [place] Tissue - Human N/A: Spine Lumbar MUSCULOSKELETAL TRANSPLANT FND 01/29/2018 [id number] / / Expedium Ti Sfx 5.5 Lat A2 - [id number] Implanted:Qty : 1 on 01/11/2015 by Colin Krause MD at [place] [facility] [place] N/A: Spine Lumbar JNJ : [employer] [id number] / / Expedium Ti Sfx 5.5 Lat A6 - [id number] Implanted:Qty : 2 on 04/30/2017 by Colin Krause MD at [place] [facility] [place] N/A: Spine Lumbar JNJ : [employer] [id number] / / documented as of this encounter [...] the patient have Health Care Power of Polysomnographer? No Care Teams Lawnmower Mechanic Relationship Specialty Start Date End Date Casey Rodgers MD [address] [place] [id number] PCP - General Family Medicine 09/04/14 documented as of this encounter"
--- OUTSIDE RECORDS SUMMARY | 2023-04-17 18:33 | External Medical Summary | Summary of Care ---
Author Name Unknown Organization [facility] Address [address] [place] [address] Phone [phone] Care Team Providers Care Kit Planner Name Role Phone Casey Rodgers MD Primary Care Provider Reason for Visit * Reason Comments Dosage Adjustment In Person (Anticoag Cl inic) Encounter Details Date Type Department Care Team Description 02/22/2023 Anticoagulation Pharmacy, [address] [place] [address] [place] [address] Paroxysmal atrial fibrillation (HCC)*; Anticoagulation management encounter; [facility] current use of anticoagulant therapy Allergies Active Allergy Reactions Severity Noted Date Comments Chlorhexidine Itching 09/10/2020 Hydrochlorothiazide Other (Please comment) 02/26/2017 Caused pancreatitis Metronidazole 02/09/2017 Pill causes severe diarrhea Ondansetron Other (Please comment) High 03/04/2018 TAYLOR documented as of this encounter (statuses as of 02/22/2023) Medications Medication Sig Dispensed Refills Start Date [...] Tablet by mouth at bedtime. 0 Active Ymzlwjtjrr-DBGA-Xu ffeine 50-325-40 MG Oral Tablet Take 1 [...] as of this encounter (statuses as of 02/22/2023) Active Problems Problem Noted Date Nonrheumatic mitral valve regurgitation 12/30/2022 Paroxysmal atrial fibrillation Chronic heart failure with preserved eje ction fraction 12/30/2022 Dyslipidemia, goal LDL below 70 08/23/20 23 S/P laminectomy with spinal fusion 06/01 Postoperative anemia due to acute blood loss 05/02/2017 HTN (hypertension) 05/02/2017 Tobacco abuse 05/02/2017 Spinal stenosis 05/02/2017 GERD (gastroesophageal reflux disease) 1 07/03/2016 SIRS (systemic inflammatory response syn drome) 05/02/2017 Thrombocytopenia 05/02/2017 Bilateral low back pain without sciatica 05/17/2015 documented as of this encounter (statuses as of 02/22/2023) Social History Tobacco Use Types Packs/Day Years [...] this encounter Progress Notes * Janice Dior, [facility] - 02/22/2023 2:12 PM EDT Images from the original note [...] Bruising Objective Current Warfarin Dose As of 02/22/2023 Warfarin maintenance plan: No maintenance plan INR Result As of 02/22/2023 INR goal: 2.0-3.0 INR used for dosin.3 (02/22/2023) Assessment & Plan Warfarin Plan As of 02/22/2023 Full warfarin instructions: 02/22: Hold; 02/23: 2.5 mg; 02/24: 2.5 mg Next INR check: 02/25/2023 Repeat PT/INR in 3 day(s) Weekly dose: establishing Additional Dosing Information: Description Ensure Janice Dior RPh Clinical Pharmacist 02/22/2023, 2:12 PM documented in this encounter Plan of Treatment Upcoming Encounters Date Type Specialty Care Team Description 02/25/2023 Anticoagulation Pharmacy [address] [place] [address] 03/03/2023 Office Visit Cardiology Sterling Lockhart MD [address] [place] [address] 05/25/2023 Office Visit Cardiology Sterling Lockhart MD [address] [place] [address] Health Maintenance Due Date Last Done Comments Pneumococcal Vaccine: 65+ Years (1 - PCV) 1950 Depression Screening 1956 Albumin/Creatinine Ratio 1962 Hepatitis C Screening 1962 DTaP,Tdap,and Td Vaccines (1 - Tdap) 12/21/1963 LUNG CANCER SCREENING - USE SMARTSET 17632 1994 Zoster Vaccines (1 of 2) 1994 [...] this encounter Medical Devices Implanted Type Area Oyster Shipper Device Identifier Shelf Expiration Date Model / Serial / Lot Dbx 10cc 349758 - [id number] - [id number] Implanted:Qty : 1 on 01/11/2015 by Colin Krause MD at [place] [facility] [place] Tissue - Human N/A: Spine Lumbar MUSCULOSKELETAL TRANSPLANT FND 08/18/2016 [id number] / [id number] / Chip Cancellous 90cc [id number] - [id number] Implanted:Qty : 1 on 04/30/2017 by Colin Krause MD at [place] [facility] [place] Tissue - Human N/A: Spine Lumbar MUSCULOSKELETAL TRANSPLANT FND 01/29/2018 [id number] / / Expedium Ti Sfx 5.5 Lat A2 - [id number] Implanted:Qty : 1 on 01/11/2015 by Colin Krause MD at [place] [facility] [place] N/A: Spine Lumbar JNJ : [employer] [id number] / / Expedium Ti Sfx 5.5 Lat A6 - [id number] Implanted:Qty : 2 on 04/30/2017 by Colin Krause MD at [place] [facility] [place] N/A: Spine Lumbar JNJ : [employer] [id number] / / documented as of this encounter Procedures Procedure Name Priority Date/Time Associated Diagnosis Comments INR FINGERSTICK, POINT OF CARE STAT 02/22/2023 2:18 PM EDT Paroxysmal atrial fibrillation (HCC) Anticoagulation management encounter [facility]iary current use of anticoagulant therapy documented in this encounter Results * INR FINGERSTICK, POINT OF CARE (02/22/2023 2:18 PM EDT) Fingerstick INR 3.3 INR 10/16/202 3 2:20 PM EDT [facility]AT[facility] [place] Blood 02/22/2023 2:18 PM EDT 02/22/2023 2:20 PM EDT Narrative [facility] - 02/22/2023 2:20 PM EDT Therapeutic ranges for non-operative patients: Prophylaxsis/treatment of DVT: (Range:2.0-3.0) Treatment of pulmonary embolism:(Range:2.0-3.0) Prevention of systemic embolism from: -tissue heart valves -acute myocardial infarction -valvular heart disease -atrial fibrillation (Range: 2.0-3.0) Mechanical prosthetic valves: (Range: 2.5-3.5) Janice Dior [facility] LAB POINT OF CARE TEST DOCKED DEVICE UNSOLICITED RESULTS [facility] [address] [place] [phone] documented in this encounter Visit Diagnoses Diagnosis Paroxysmal atrial fibrillation (HCC)- Primary Atrial fibrillation Anticoagulation management encounter Encounter for therapeutic drug monitoring rat exterminator current use of anticoagulant therapy documented in [...] the patient have Health Care Power of Field Sampling Technician? No Care Teams Kit Planner Relationship Specialty Start Date End Date Casey Rodgers MD [address] [place] [address] PCP - General Family Medicine 09/04/14 documented as of this encounter"
--- OUTSIDE RECORDS SUMMARY | 2023-04-17 18:33 | External Medical Summary | Summary of Care ---
Author Name Unknown Organization [facility] Address [address] [place] [address] Phone [phone] Care Team Providers Care Hospitalist Name Role Phone Casey Rodgers MD Primary Care Provider Reason for Visit * Reason Comments Dosage Adjustment Via Phone (anticoag Cl inic) Hospital Follow-Up Encounter Details Date Type Department Care Team Description 02/19/2023 Anticoagulation Pharmacy, [address] [place] [address] [place] [address] Paroxysmal atrial fibrillation (HCC)* Allergies Active Allergy Reactions Severity Noted Date Comments Chlorhexidine Itching 09/10/2020 Hydrochlorothiazide Other (Please comment) 02/26/2017 Caused pancreatitis Metronidazole 02/09/2017 Pill causes severe diarrhea Ondansetron Other (Please comment) High 03/04/2018 TAYLOR documented as of this encounter (statuses as of 02/19/2023) Medications Medication Sig Dispensed Refills Start Date [...] Tablet by mouth at bedtime. 0 Active Pplriqxadz-EQBY-Wt ffeine 50-325-40 MG Oral Tablet Take 1 [...] as of this encounter (statuses as of 02/19/2023) Active Problems Problem Noted Date Nonrheumatic mitral [...] as of this encounter (statuses as of 02/19/2023) Social History Tobacco Use Types Packs/Day Years [...] this encounter Progress Notes * Janice Dior RPh - 02/19/2023 10:55 AM EDT Per chart review, patient discharged from [facility]. Called and spoke to patient to confirm. INR/Doses updated as entered per [facility] record. INR therapeutic upon discharge. Instructed to take decreased doseof 2.5mg through the weekend. Will plan to f/u with on Wednesday, 02/22. Patient expressed understanding. Janice Dior RPh, PharmD Clinical Pharmacist - [facility] 02/19/2023, 11:05 AM [phone] documented in this encounter Plan of Treatment Upcoming Encounters Date Type Specialty Care Team Description 02/22/2023 Anticoagulation Pharmacy [place], [address] [place] [address] 03/03/2023 Office Visit Cardiology Sterling Lockhart MD [address] [place] [address] 05/25/2023 Office Visit Cardiology Sterling Lockhart MD [address] [place] [address] Health Maintenance Due Date Last Done Comments Pneumococcal Vaccine: 65+ Years (1 - PCV) 1950 Depression Screening 1956 Albumin/Creatinine Ratio 1962 Hepatitis C Screening 1962 DTaP,Tdap,and Td Vaccines (1 - Tdap) 12/21/1963 LUNG CANCER SCREENING - USE SMARTSET 53938 1994 Zoster Vaccines (1 of 2) 1994 [...] encounter Medical Devices Implanted Type Area Book Canvasser Device Identifier Shelf Expiration Date Model / Serial / Lot Dbx 10cc [id number] - [id number] - [id number] Implanted:Qty : 1 on 01/11/2015 by Colin Krause MD at OR [facility] [place] Tissue - Human N/A: Spine Lumbar MUSCULOSKELETAL TRANSPLANT FND 08/18/2016 [id number] / [id number] / Chip Cancellous 90cc [id number] - [id number] Implanted:Qty : 1 on 04/30/2017 by Cloin Krause MD at OR [facility] [place] Tissue - Human N/A: Spine Lumbar MUSCULOSKELETAL TRANSPLANT FND 01/29/2018 [id number] / / Expedium Ti Sfx 5.5 Lat A2 - [id number] Implanted:Qty : 1 on 01/11/2015 by Colin Krause MD at OR [facility] [place] N/A: Spine Lumbar JNJ : [employer] [id number] / / Expedium Ti Sfx 5.5 Lat A6 - [id number] Implanted:Qty : 2 on 04/30/2017 by Colin Krause MD at OR [facility] [place] N/A: Spine Lumbar JNJ : [employer] [id number] / / documented as of this encounter Procedures Procedure Name Priority Date/Time Associated Diagnosis Comments OUTSIDE LAB-PT/INR Routine 02/18/2023 OUTSIDE LAB-PT/INR Routine 02/17/2023 OUTSIDE LAB-PT/INR Routine 02/16/2023 documented in this encounter Results * OUTSIDE LAB-PT/INR (02/18/2023) Pathologist [facility] INR-OUTSIDE LAB 2.1 02/18/2023 Resulting Agency Comment [facility] History Per Patient LABORATORY * OUTSIDE LAB-PT/INR (02/17/2023) [facility] INR-OUTSIDE LAB 2.5 02/17/2023 Resulting Agency Comment [facility] History Per Patient LABORATORY * OUTSIDE LAB-PT/INR (02/16/2023) INR-OUTSIDE LAB 2.3 02/16/2023 Resulting Agency Comment [facility] History Per Patient LABORATORY documented in this [...] the patient have Health Care Power of Deck Scaler? No Care Teams Hospitalist Relationship Specialty Start Date End Date Casey Rodgers MD [address] [place] [address] PCP - General Family Medicine 09/04/14 documented as of this encounter
--- OUTSIDE RECORDS SUMMARY | 2023-04-17 18:33 | External Medical Summary | Summary of Care ---
Author Name Unknown Organization [facility] Address [address] [place] [address] Phone [phone] Care Team Providers Care Trim Die Maker Name Role Phone Casey Rodgers MD Primary Care Provider [phone] Encounter Details Date Type Department Care Team Description 11/09/2022 Result Scan Unspecified Department <No scans attached> Allergies Active [...] Tablet by mouth at bedtime. 0 Active Eehgfiizdr-RNRF-Hwlz eine 50-325-40 MG Oral Tablet Take 1 [...] 12/30/2022 Dyslipidemia, goal LDL below 70 12/31/19 S/P laminectomy with spinal fusion 06/01 Postoperative [...] Lockhart MD [address] [place] [address] Health Maintenance Due Date Last Done Comments Pneumococcal Vaccine: 65+ Years (1 - PCV) 1950 Depression Screening, Annual for Pts 12 and Over 1956 Albumin/Creatinine Ratio 1962 Hepatitis C Screening 1962 DTaP,Tdap,and Td Vaccines (1 - Tdap) 12/21/1963 LUNG CANCER SCREENING - USE SMARTSET 01192 1994 Zoster Vaccines (1 of 2) 1994 [...] this encounter Medical Devices Implanted Type Area Senior Core Java Developer Device Identifier Shelf Expiration Date Model / Serial / Lot Dbx 10cc [id number] - [id number] - [id number] Implanted:Qty : 1 on 01/11/2015 by Colin Krause MD at OR [facility] [place] Tissue - Human N/A: Spine Lumbar MUSCULOSKELETAL TRANSPLANT FND 08/18/2016 [id number] / [id number] / Chip Cancellous 90cc [id number] - [id number] Implanted:Qty : 1 on 04/30/2017 by Colin Krause MD at OR [facility] [place] Tissue - Human N/A: Spine Lumbar MUSCULOSKELETAL TRANSPLANT FND 01/29/2018 [id number] / / Expedium Ti Sfx 5.5 Lat A2 - [id number] Implanted:Qty : 1 on 01/11/2015 by Colin Krause MD at OR [facility] [place] N/A: Spine Lumbar JNJ : [employer] [id number] / / Expedium Ti Sfx 5.5 Lat A6 - [id number] Implanted:Qty : 2 on 04/30/2017 by Colin Krause MD at OR [facility] [place] N/A: Spine Lumbar JNJ : [employer] [id number] / / documented as of this encounter Procedures Procedure Name Priority Date/Time Associated Diagnosis Comments CARDIOLOGY SCANNED RESULT 11/09/2022 ECHOCARDIOLOGY SCANNED RESULT 11/08/2022 documented in this encounter Results * CARDIOLOGY SCANNED RESULT (11/09/2022) 11/09/2022 No Physician Data Unknown OTHER * ECHOCARDIOLOGY SCANNED RESULT (11/08/2022) 11/08/2022 No Physician Data Unknown ECHOCARDIOLOGY documented in this encounter Advance Directives Latest [...] the patient have Health Care Power of Certified Alcohol And Drug Counselor? No Care Teams Trim Die Maker Relationship Specialty Start Date End Date Casey Rodgers MD [address] [place] [address] PCP - General Family Medicine 09/04/14 documented as of this encounter
--- OUTSIDE RECORDS SUMMARY | 2023-04-17 18:33 | External Medical Summary | Summary of Care ---
Author Name Unknown Organization [facility] Address [address] [place] [address] Phone [phone] Care Team Providers Care Finger Buff Sewer Name Role Phone Casey Rodgers MD Primary Care Provider Reason for Visit * Reason Comments Dosage Adjustment In Person (Anticoag Cl inic) Encounter Details Date Type Department Care Team Description 02/08/2023 Anticoagulation Pharmacy, [address] [place] [address] [place] [address] Paroxysmal atrial fibrillation (HCC)*; Anticoagulation management encounter; correction current use of anticoagulant therapy Allergies Active Allergy Reactions Severity Noted Date Comments Chlorhexidine Itching 09/10/2020 Hydrochlorothiazide Other (Please comment) 02/26/2017 Caused pancreatitis Metronidazole 02/09/2017 Pill causes severe diarrhea Ondansetron Other (Please comment) High 03/04/2018 TAYLOR documented as of this encounter (statuses as of 02/08/2023) Medications Medication Sig Dispensed Refills Start Date [...] Tablet by mouth at bedtime. 0 Active Gjlostzbzp-YAWR-V affeine 50-325-40 MG Oral Tablet Take 1 [...] anticoagulation clinic 30 Tablet 5 02/08/2023 Active Warfarin Sodium 5 MG Oral Tablet (Coumadin) Take 1 Tablet by mouth every evening. As directed by anticoagulation clinic. 30 Tablet 5 02/05/2023 02/09/20 23 Discontinu ed(Refill) documented as of this encounter (statuses as of 02/08/2023) Active Problems Problem Noted Date Nonrheumatic mitral [...] as of this encounter (statuses as of 02/08/2023) Social History Tobacco Use Types Packs/Day Years [...] this encounter Progress Notes * Janice Dior, [facility] - 02/08/2023 3:56 PM EDT Images from the original note were not included. Medication Therapy Disease Management - Anticoagulation Patient: Alexia Workman Campos | : 1945 Subjective Patient presented with son Patient-Reported Symptoms: Patient Findings Negatives: Signs/symptoms of thrombosis, Signs/symptoms of bleeding, Change in health, Change in alcohol use, Change in activity, Upcoming invasive procedure, Missed doses, Extra doses, Change in medications, Change in diet/appetite, Bruising Objective Current Warfarin Dose As of 02/08/2023 Warfarin maintenance plan: No maintenance plan INR Result As of 02/08/2023 INR goal: 2.0-3.0 INR used for dosin.3 (02/08/2023) Assessment & Plan Warfarin Plan As of 02/08/2023 Full warfarin instructions: 02/08: 5 mg; 02/09: 2.5 mg; 02/10: 2.5 mg Next INR check: 02/11/2023 Repeat PT/INR in 3 day(s) Weekly dose: establishing Additional Dosing Information: Patient reports she recently applied for PACE, over income. Will consider re- applying in 2023. Denies any further bleeding. Will continue to bring up INR slowly. New warfarin Rx sent. Brief warfarin teach completed as patient had been on Eliquis in the past. Handout provided. Does note to drinking 1-2 Ensure daily, discussed importance of consistency. Janice Dior RPh Clinical Pharmacist 02/08/2023, 3:56 PM documented in this encounter Miscellaneous Notes * Pt Handout (on AVS) - Janice Dior RPh - 02/08/2023 3:58 PM EDT Images from the original note were not included. [phone] Warfarin Oral Tablet Brands: Coumadin, Jantoven Uses This medicine is used for the following purposes: prevent blood clots treatment of blood clots Instructions This medicine may be taken with or without food. This medicine will work best if you take it at about the same time every day. Keep the medicine at room temperature. Avoid heat and direct light. It is important that you keep taking each dose of this medicine on time even if you are feeling well. If you forget to take a dose on time, take it as soon as you remember. If you don't remember until the next day, please call your doctor for instructions. Never take a double dose or skip a dose unless your provider tells you to do so. Tell your doctor and pharmacist about all your medicines. Include prescription and lwxk-qnx-stlrtghddfpbvdrp, vitamins, and herbal medicines. Cautions Tell your doctor and pharmacist if you ever had an allergic reaction to a medicine. Do not use the medication any more than instructed. Contact your doctor if you notice a change in the amount or darkening of your urine. Tell the doctor or pharmacist if you are , planning to be , or . Women who are or in their childbearing years should not touch or handle this medicine. This medicine can be absorbed through the woman's skin and harm the unborn baby. Call your doctor right away if you notice any unusual bleeding or bruising. Do not share this medicine with anyone who has not been prescribed this medicine. Side Effects The following is a list of some common side effects from this medicine. Please speak with your doctor about what you should do if you experience these or other side effects. liver problems nausea red, burning, or itchy skin stomach upset or abdominal pain Call your doctor or get medical help right away if you notice any of these more serious side effects: loss of balance bleeding or bruising chest pain coughing up blood or vomit that looks like coffee grounds dizziness fainting severe or persistent headache sudden leg pain, swelling, warmth or redness signs of liver damage (such as yellowing of eye or skin, dark urine, or unusual tiredness) pale or blue skin, lips or fingernails bloody or dark, tarry stools light colored stool symptoms of stroke (such as one-sided weakness, slurred speech, confusion) blood in urine A few people may have an allergic reaction to this medicine. Symptoms can include difficulty breathing, skin rash, itching, swelling, or severe dizziness. If you notice any of these symptoms, seek medical help quickly. Extra Please speak with your doctor, nurse, or pharmacist if you have any questions about this medicine. [email or web address] IMPORTANT NOTE: This document tells you briefly how to take your medicine, but it does not tell youall there is to know about it. Your doctor or pharmacist may give you other documents about your medicine. Please talk to them if you have any questions. Always follow their advice. There is a more complete description of this medicine available in [place]. Scan this code on your smartphone or tablet or use the web address below. You can also ask your pharmacist for a printout. If you have any questions, please ask your pharmacist. The display and use of this drug information is subject to Terms of Use. Copyright(c) 2022 [employer]. All rights reserved. This information is not intended as a substitute for professional medical care. Always follow your healthcare professional's instructions. documented in this encounter Plan of Treatment Upcoming Encounters Date Type Specialty Care Team Description 02/11/2023 Anticoagulation Pharmacy [address] [place] [address] 03/03/2023 Office Visit Cardiology Sterling Lockhart MD [address] [place] [address] 05/25/2023 Office Visit Cardiology Sterling Lockhart MD [address] [place] [address] Scheduled Orders Name Type Priority Associated Diagnoses Orde r Schedule PT INR Lab Routine Paroxysmal atrial fibrillation (HCC) Anticoagulation management encounter correction current use of anticoagulant therapy 26 Occurrences starting 02/08/2023 until 02/08/2024 INR FINGERSTICK, POINT OF CARE Point of Care Testing - Unsolicited Results STAT Paroxysmal atrial fibrillation (HCC) Anticoagulation management encounter emt intermediate current use of anticoagulant therapy Every 2 Weeks for 26 Occurrences starting 02/08/2023 until 02/09/2024, 1 completed Health Maintenance Due Date Last Done Comments Pneumococcal Vaccine: 65+ Years (1 - PCV) 1950 Depression Screening 1956 Albumin/Creatinine Ratio 1962 Hepatitis C Screening 1962 DTaP,Tdap,and Td Vaccines (1 - Tdap) 12/21/1963 LUNG CANCER SCREENING - USE SMARTSET 11365 1994 Zoster Vaccines (1 of 2) 1994 [...] this encounter Medical Devices Implanted Type Area Film Technician Device Identifier Shelf Expiration Date Model / Serial / Lot Dbx 10cc [id number] - [id number] - [id number] Implanted:Qty : 1 on 01/11/2015 by Colin Krause MD [place] [facility] [place] - Human N/A: Spine Lumbar MUSCULOSKELETAL TRANSPLANT FND 08/18/2016 [id number] / [id number] / Chip Cancellous 90cc 397239 - [id number] Implanted:Qty : 1 on 04/30/2017 by Colin Krause MD [place] [facility] [place] - Human N/A: Spine Lumbar MUSCULOSKELETAL TRANSPLANT FND 01/29/2018 [id number] / / Expedium Ti Sfx 5.5 Lat A2 - [id number] Implanted:Qty : 1 on 01/11/2015 by Colin Krause [place] [facility] [place]/A: Spine Lumbar JNJ : [employer] [id number] / / Expedium Ti Sfx 5.5 Lat A6 - [id number] Implanted:Qty : 2 on 04/30/2017 by Colin Krause MD [place] [facility] [place]A: Spine Lumbar JNJ : [employer] [id number] / / documented as of this encounter Procedures Procedure Name Priority Date/Time Associated Diagnosis Comments INR FINGERSTICK, POINT OF CARE STAT 02/08/2023 4:10 PM EDT Paroxysmal atrial fibrillation (HCC) Anticoagulation management encounter correction current use of anticoagulant therapy documented in this encounter Results * INR FINGERSTICK, POINT OF CARE (02/08/2023 4:10 PM EDT) Fingerstick INR 1.3 INR 4:18 PM EDT [facility]- Blood 02/08/2023 4:10 PM EDT 02/08/2023 4:18 PM EDT Narrative [facility] - 02/08/2023 4:18 PM EDT Therapeutic ranges for non-operative patients: Prophylaxsis/treatment of DVT: (Range:2.0-3.0) Treatment of pulmonary embolism:(Range:2.0-3.0) Prevention of systemic embolism from: -tissue heart valves -acute myocardial infarction -valvular heart disease -atrial fibrillation (Range: 2.0-3.0) Mechanical prosthetic valves: (Range: 2.5-3.5) Janice Dior [facility] LAB POINT OF CARE TEST DOCKED DEVICE UNSOLICITED RESULTS [facility] [place] [address] [place] [id number] documented in this encounter Visit Diagnoses Diagnosis Paroxysmal atrial fibrillation (HCC)- Primary Atrial fibrillation Anticoagulation management encounter Encounter for therapeutic drug monitoring emt intermediate current use of anticoagulant therapy documented in [...] the patient have Health Care Power of Civil Attorney? No Care Teams Finger Buff Sewer Relationship Specialty Start Date End Date Casey Rodgers MD [address] [place] [address] PCP - General Family Medicine 09/04/14 documented as of this encounter"
--- OUTSIDE RECORDS SUMMARY | 2023-04-17 18:33 | External Medical Summary ---
Author Name Unknown Address Unknown Organization : Laboratory Report Ordering Provider Test Date Status JESÚS MULLERDANIA 02/11/2023 15:15:48 Final Therapeutic ranges for non-o perative patients:
Prophylaxsis/treatment of DVT: (Range:2.0-3.0)
Treatment of pulmonary embolism:(Range:2.0-3.0)
Prevention of systemic embolism from:
-tissue heart valves
-acute myocardial infarction
-valvular heart disease
-atrial fibrillation
(Range: 2.0-3.0)
Mechanical prosthetic valves: (Range: 2.5-3.5) Observation Date Value Abnormality Reference (Units ) Status INR in Capillary blood by Coagulation assay 02/11/2023 15:15:48 1.6 (INR) Final Performing Location
--- OUTSIDE RECORDS SUMMARY | 2023-04-17 18:33 | External Medical Summary | Summary of Care ---
Author Name Unknown Organization [facility] Address [address] [place] [address] Phone [phone] Care Team Providers Care Jig Inspector Name Role Phone Casey Rodgers MD Primary Care Provider [phone] Reason for Visit * Reason Comments Dosage Adjustment In Person (Anticoag Cl inic) Encounter Details Date Type Department Care Team Description 02/11/2023 Anticoagulation Pharmacy, [address] [place] [address] [place] [address] Paroxysmal atrial fibrillation (HCC)*; Anticoagulation management encounter; longterm current use of anticoagulant therapy Allergies Active Allergy Reactions Severity Noted Date Comments Chlorhexidine Itching 09/10/2020 Hydrochlorothiazide Other (Please comment) 02/26/2017 Caused pancreatitis Metronidazole 02/09/2017 Pill causes severe diarrhea Ondansetron Other (Please comment) High 03/04/2018 TAYLOR documented as of this encounter (statuses as of 02/11/2023) Medications Medication Sig Dispensed Refills Start Date [...] Tablet by mouth at bedtime. 0 Active Reemroqzyy-FGLI-Ib ffeine 50-325-40 MG Oral Tablet Take 1 [...] as of this encounter (statuses as of 02/11/2023) Active Problems Problem Noted Date Nonrheumatic mitral [...] as of this encounter (statuses as of 02/11/2023) Social History Tobacco Use Types Packs/Day Years [...] this encounter Progress Notes * Janice Dior, LTAC, located within [facility] - 02/11/2023 3:12 PM EDT Images from the original note were not included. Medication Therapy Disease Management - Anticoagulation Patient: Alexia Campos | : 1945 Subjective Patient presented with son Patient-Reported Symptoms: Patient Findings Negatives: Signs/symptoms of thrombosis, Signs/symptoms of bleeding, Change in health, Change in alcohol use, Change in activity, Upcoming invasive procedure, Missed doses, Extra doses, Change in medications, Change in diet/appetite, Bruising Objective Current Warfarin Dose As of 02/11/2023 Warfarin maintenance plan: No maintenance plan INR Result As of 02/11/2023 INR goal: 2.0-3.0 INR used for dosin.6 (02/11/2023) Assessment & Plan Warfarin Plan As of 02/11/2023 Full warfarin instructions: 105: 5 mg; 106: 2.5 mg; 107: 5 mg; 108: 2.5 mg Next INR check: 02/15/2023 Repeat PT/INR in 4 day(s) Weekly dose: establishing Additional Dosing Information: Description Ensure Janice Dior RPh Clinical Pharmacist 02/11/2023, 3:12 PM documented in this encounter Plan of Treatment Upcoming Encounters Date Type Specialty Care Team Description 02/15/2023 Anticoagulation Pharmacy [address] [place] [address] 03/03/2023 Office Visit Cardiology Sterling Lockhart MD [address] [place] [address] 05/25/2023 Office Visit Cardiology Sterling Lockhart MD [address] [address] Health Maintenance Due Date Last Done Comments Pneumococcal Vaccine: 65+ Years (1 - PCV) 1950 Depression Screening 1956 Albumin/Creatinine Ratio 1962 Hepatitis C Screening 1962 DTaP,Tdap,and Td Vaccines (1 - Tdap) 12/21/1963 LUNG CANCER SCREENING - USE SMARTSET 01806 1994 Zoster Vaccines (1 of 2) 1994 [...] this encounter Medical Devices Implanted Type Area Microfilm Duplicating Unit Supervisor Device Identifier Shelf Expiration Date Model / Serial / Lot Dbx 10cc [id number] - [id number] - [id number] Implanted:Qty : 1 on 01/11/2015 by Colin Krause MD at [place] [facility] [place] Tissue - Human N/A: Spine Lumbar MUSCULOSKELETAL TRANSPLANT FND 08/18/2016 [id number] / [id number] / Chip Cancellous 90cc [id number] - [id number] Implanted:Qty : 1 on 04/30/2017 by Colin Krause MD at [place] [facility] [place] Tissue - Human N/A: Spine Lumbar MUSCULOSKELETAL TRANSPLANT FND 01/29/2018 [id number] / / Expedium Ti Sfx 5.5 Lat A2 - [id number] Implanted:Qty : 1 on 01/11/2015 by Colin Krause MD at [place] [facility] [place] N/A: Spine Lumbar JNJ : [employer] [id number] / / Expedium Ti Sfx 5.5 Lat A6 - [id number] Implanted:Qty : 2 on 04/30/2017 by Colin Krause MD at [place] [facility] [place] N/A: Spine Lumbar JNJ : [employer] [id number] / / documented as of this encounter Procedures Procedure Name Priority Date/Time Associated Diagnosis Comments INR FINGERSTICK, POINT OF CARE STAT 02/11/2023 3:15 PM EDT Paroxysmal atrial fibrillation (HCC) Anticoagulation management encounter longterm current use of anticoagulant therapy documented in this encounter Results * INR FINGERSTICK, POINT OF CARE (02/11/2023 3:15 PM EDT) Fingerstick INR 1.6 INR 3 3:17 PM EDT [facility] Blood 02/11/2023 3:15 PM EDT 02/11/2023 3:17 PM EDT Narrative [facility] 55- - 02/11/2023 3:17 PM EDT Therapeutic ranges for non-operative patients: Prophylaxsis/treatment of DVT: (Range:2.0-3.0) Treatment of pulmonary embolism:(Range:2.0-3.0) Prevention of systemic embolism from: -tissue heart valves -acute myocardial infarction -valvular heart disease -atrial fibrillation (Range: 2.0-3.0) Mechanical prosthetic valves: (Range: 2.5-3.5) Janice Dior [facility], located within [facility] POINT OF CARE TEST DOCKED DEVICE UNSOLICITED RESULTS [facility] [place] [address] [place] [address] [place] [address] documented in this encounter Visit Diagnoses Diagnosis Paroxysmal atrial fibrillation (HCC)- Primary Atrial fibrillation Anticoagulation management encounter Encounter for therapeutic drug monitoring longterm current use of anticoagulant therapy documented in [...] the patient have Health Care Power of Convenience Store Clerk? No Care Teams Jig Inspector Relationship Specialty Start Date End Date Casey Rodgers MD [address] [place] [address] PCP - General Family Medicine 09/04/14 documented as of this encounter"
--- OUTSIDE RECORDS SUMMARY | 2023-04-17 18:33 | External Medical Summary | Summary of Care ---
Author Name Unknown Organization [facility] Address [address] [place] [address] Phone [phone] Care Team Providers Care Chief Embalmer Name Role Phone Casey Rodgers MD Primary Care Provider [phone] Encounter Details Date Type Department Care Team Description 02/18/2023 Telephone Pharmacy, [address] [place] [id number] [facility] [address] [place] [address] Allergies Active Allergy Reactions Severity Noted Date Comments Chlorhexidine Itching 09/10/2020 Hydrochlorothiazide Other (Please comment) 02/26/2017 Caused pancreatitis Metronidazole 02/09/2017 Pill causes severe diarrhea Ondansetron Other (Please comment) High 03/04/2018 TAYLOR documented as of this encounter (statuses as of 02/18/2023) Medications Medication Sig Dispensed Refills Start Date [...] Tablet by mouth at bedtime. 0 Active Vponbyggrc-XHHP-Dc ffeine 50-325-40 MG Oral Tablet Take 1 [...] as of this encounter (statuses as of 02/18/2023) Active Problems Problem Noted Date Nonrheumatic mitral [...] as of this encounter (statuses as of 02/18/2023) Social History Tobacco Use Types Packs/Day Years [...] Notes * Telephone Encounter - Janice Dior RPh - 02/18/2023 2:19 PM EDT Spoke with spouse and son during spouse's ACC visit. They report patient is currently admitted at [facility]. Admitted due to chest pain, concerns for carbon monoxide poisoning. Call placed to check for discharge prior to the weekend. INR remaining stable per [facility] records. Tentative OFS scheduled with 's on 02/22. Janice Dior RPh, PharmD Clinical Pharmacist - Auto Heater Mechanic Medication Therapy Disease Management Clinic 02/18/2023, 2:22 PM [phone] documented in this encounter Plan of Treatment Upcoming Encounters Date Type Specialty Care Team Description 02/19/[address] [place] [address] 02/22/[address] [place] [address] 03/03/2023 Office Visit Cardiology Sterling Lockhart MD [address] [place] [address] 05/25/2023 Office Visit Cardiology Sterling Lockhart MD [address] [place] [address] Health Maintenance Due Date Last Done Comments Pneumococcal Vaccine: 65+ Years (1 - PCV) 1950 Depression Screening 1956 Albumin/Creatinine Ratio 1962 Hepatitis C Screening 1962 DTaP,Tdap,and Td Vaccines (1 - Tdap) 12/21/1963 LUNG CANCER SCREENING - USE SMARTSET 72206 1994 Zoster Vaccines (1 of 2) 1994 [...] this encounter Medical Devices Implanted Type Area Fact Checker Device Identifier Shelf Expiration Date Model / Serial / Lot Dbx 10cc [id number] - [id number] - [id number] Implanted:Qty : 1 on 01/11/2015 by [place] Krause [place] [facility] [place] - Human N/A: Spine Lumbar MUSCULOSKELETAL TRANSPLANT FND 08/18/2016 [id number] / [id number] / Chip Cancellous 90cc [id number] - [id number] Implanted:Qty : 1 on 04/30/2017 by Colin Krause MD [place] [facility] [place] - Human N/A: Spine Lumbar MUSCULOSKELETAL TRANSPLANT FND 01/29/2018 [id number] / / Expedium Ti Sfx 5.5 Lat A2 - [id number] Implanted:Qty : 1 on 01/11/2015 by Colin Krause MD [place] [facility] [place] N/A: Spine Lumbar JNJ : [employer] [id number] / / Expedium Ti Sfx 5.5 Lat A6 - [id number] Implanted:Qty : 2 on 04/30/2017 by Colin Krause MD [place] [facility] [place] N/A: Spine Lumbar JNJ : [employer] [id number] / / documented as of this encounter [...] the patient have Health Care Power of Drill Doctor? No Care Teams Chief Embalmer Relationship Specialty Start Date End Date Casey Rodgers MD [address] [place] [address] PCP - General Family Medicine 09/04/14 documented as of this encounter
--- OUTSIDE RECORDS SUMMARY | 2023-04-17 18:33 | External Medical Summary | Summary of Care ---
Author Name Unknown Organization [facility] Address [address] [place] [address] Phone [phone] Care Team Providers Care Rotary Saw Operator Name Role Phone Casey Rodgers MD Primary Care Provider [phone] Reason for Visit * Reason Onset Date Comments Medication Refill 02/26/2023 E [id number] [id number] Encounter Details Date Type Department Care Team Description 02/26/2023 Telephone Cardiology, [facility] [address] [facility] [place] [address] Mac Christianson, DO [address] [facility] [place] [address] Medication Refill (E [id number] Allergies Active Allergy Reactions Severity Noted Date Comments Chlorhexidine Itching 09/10/2020 Hydrochlorothiazide Other (Please comment) 02/26/2017 Caused pancreatitis Metronidazole 02/09/2017 Pill causes severe diarrhea Ondansetron Other (Please comment) High 03/04/2018 TAYLOR documented as of this encounter (statuses as of 02/26/2023) Medications Medication Sig Dispensed Refills Start Date [...] Tablet by mouth at bedtime. 0 Active Tqiqqaspkj-JGRJ-Ke ffeine 50-325-40 MG Oral Tablet Take 1 [...] as of this encounter (statuses as of 02/26/2023) Active Problems Problem Noted Date Nonrheumatic mitral [...] as of this encounter (statuses as of 02/26/2023) Social History Tobacco Use Types Packs/Day Years [...] * Telephone Encounter - YONNY Burrows - 02/26/2023 12:56 PM EDT Pt called for a refill on nitroglycerin She said it was given to her in the hospital at [facility] Please refill E [id number]- [place] Thank you YONNY Burrows documented in this encounter Plan of Treatment Upcoming Encounters Date Type Specialty Care Team Description 03/03/2023 Office Visit Cardiology Sterling Lockhart MD [address] [place] [address] 03/04/[address] [place] [address] 05/25/2023 Office Visit Cardiology Sterling Lockhart MD [address] [place] [address] Health Maintenance Due Date Last Done Comments Pneumococcal Vaccine: 65+ Years (1 - PCV) 1950 Depression Screening 1956 Albumin/Creatinine Ratio 1962 Hepatitis C Screening 1962 DTaP,Tdap,and Td Vaccines (1 - Tdap) 12/21/1963 LUNG CANCER SCREENING - USE SMARTSET 07519 1994 Zoster Vaccines (1 of 2) 1994 [...] this encounter Medical Devices Implanted Type Area Household Appliance Repairer Device Identifier Shelf Expiration Date Model / Serial / Lot Dbx 10cc [id number] - [id number] - [id number] Implanted:Qty : 1 on 01/11/2015 by Colin Krause MD [place] [facility] [place] Tissue - Human N/A: Spine Lumbar MUSCULOSKELETAL TRANSPLANT FND 08/18/2016 [id number] / [id number] / Chip Cancellous 90cc [id number] - [id number] Implanted:Qty : 1 on 04/30/2017 by Colin Krause MD [place] [facility] [place] Tissue - Human N/A: Spine Lumbar MUSCULOSKELETAL TRANSPLANT FND 01/29/2018 [id number] / / Expedium Ti Sfx 5.5 Lat A2 - [id number] Implanted:Qty : 1 on 01/11/2015 by Colin Krause MD [place] [facility] [place] N/A: Spine Lumbar JNJ : [employer] [id number] / / Expedium Ti Sfx 5.5 Lat A6 - [id number] Implanted:Qty : 2 on 04/30/2017 by Colin Krause MD [place] [facility] [place] N/A: Spine Lumbar JNJ : [employer] [id number] / / documented as of this encounter [...] the patient have Health Care Power of Flattening Press Operator? No Care Teams Rotary Saw Operator Relationship Specialty Start Date End Date Casey Rodgers MD [address] [place] [address] PCP - General Family Medicine 09/04/14 documented as of this encounter
--- OUTSIDE RECORDS SUMMARY | 2023-04-17 18:33 | External Medical Summary ---
Author Name Unknown Address Unknown Organization : Laboratory Report Ordering Provider Test Date Status JESÚS MULLERDANIA 02/25/2023 13:56:12 Final Therapeutic ranges for non-o perative patients:
Prophylaxsis/treatment of DVT: (Range:2.0-3.0)
Treatment of pulmonary embolism:(Range:2.0-3.0)
Prevention of systemic embolism from:
-tissue heart valves
-acute myocardial infarction
-valvular heart disease
-atrial fibrillation
(Range: 2.0-3.0)
Mechanical prosthetic valves: (Range: 2.5-3.5) Observation Date Value Abnormality Reference (Units ) Status INR in Capillary blood by Coagulation assay 02/25/2023 13:56:12 2.1 (INR) Final Performing Location
--- OUTSIDE RECORDS SUMMARY | 2023-04-17 18:33 | External Medical Summary ---
Author Name Unknown Address Unknown Organization : Laboratory Report Ordering Provider Test Date Status JESÚS MULLERDANIA 02/22/2023 14:18:47 Final Therapeutic ranges for non-o perative patients:
Prophylaxsis/treatment of DVT: (Range:2.0-3.0)
Treatment of pulmonary embolism:(Range:2.0-3.0)
Prevention of systemic embolism from:
-tissue heart valves
-acute myocardial infarction
-valvular heart disease
-atrial fibrillation
(Range: 2.0-3.0)
Mechanical prosthetic valves: (Range: 2.5-3.5) Observation Date Value Abnormality Reference (Units ) Status INR in Capillary blood by Coagulation assay 02/22/2023 14:18:47 3.3 (INR) Final Performing Location
--- OUTSIDE RECORDS SUMMARY | 2023-04-17 18:33 | External Medical Summary ---
Author Name Unknown Address Unknown Organization : Laboratory Report Ordering Provider Test Date Status JESÚS MULLERDANIA 02/08/2023 16:10:58 Final Therapeutic ranges for non-o perative patients:
Prophylaxsis/treatment of DVT: (Range:2.0-3.0)
Treatment of pulmonary embolism:(Range:2.0-3.0)
Prevention of systemic embolism from:
-tissue heart valves
-acute myocardial infarction
-valvular heart disease
-atrial fibrillation
(Range: 2.0-3.0)
Mechanical prosthetic valves: (Range: 2.5-3.5) Observation Date Value Abnormality Reference (Units ) Status INR in Capillary blood by Coagulation assay 02/08/2023 16:10:58 1.3 (INR) Final Performing Location
--- OUTSIDE RECORDS SUMMARY | 2023-04-17 18:33 | External Medical Summary | Summary of Care ---
Author Name Unknown Organization [facility] Address [address] [place] [address] Phone [phone] Care Team Providers Care Tab Machine Operator Name Role Phone Casey Rodgers MD Primary Care Provider [phone] Reason for Visit * Reason Comments Dosage Adjustment Via Phone (anticoag Cl inic) Referral * Evaluate & Treat - Unlimited Visits (Within 3 days (urgent)) - Authorized Specialty Diagnoses / Procedures Referred By Luis fitzgerald Referred To Contact ANTI-COAG CLINIC / Pharmacy Diagnoses Paroxysmal atrial fibrillation (HCC) Mac Christianson, DO [address] [place] [address] Referral ID Status Reason Start Date Expiration Date Visits Requested Visits Authorized [id number] Authorized Specialty Services Required 02/05/2023 08/04/2023 99 99 Encounter Details Date Type Department Care Team Description 02/05/2023 Anticoagulation Pharmacy, [address] [place] [address] [place] [address] Paroxysmal atrial fibrillation (HCC)* Allergies Active Allergy Reactions Severity Noted Date Comments Chlorhexidine Itching 09/10/2020 Hydrochlorothiazide Other (Please comment) 02/26/2017 Caused pancreatitis Metronidazole 02/09/2017 Pill causes severe diarrhea Ondansetron Other (Please comment) High 03/04/2018 TAYLOR documented as of this encounter (statuses as of 02/05/2023) Medications Medication Sig Dispensed Refills Start Date End Date Status HYDROcodone-acet aminophen 5-325 mg per tab 5-325 MG per tablet Take 1 Tab by mouth every 6 hours as needed for Pain, Mild. 90 Tab 0 8 Active Calcium Carbonate-Vitami n D 500-125 MG-UNIT [...] MOUTH ONCE DAILY IN THE MORNING 0 3 Active Isosorbide Mononitrate ER 30 MG Oral Tablet Extended Release 24 Hour (Imdur) TAKE 1 TABLET BY MOUTH ONCE DAILY IN THE MORNING 0 3 Active Aspirin Low Dose 81 MG Oral Tablet Delayed Release TAKE 1 TABLET BY MOUTH ONCE DAILY IN THE MORNING 0 3 Active Metoprolol Succinate ER 25 MG Oral Tablet Extended Release 24 Hour (toPROL XL)Indications:P aroxysmal atrial fibrillation (HCC),Localized edema Take 1 Tablet by mouth in the morning. 90 Tablet 3 3 Active Spironolactone 25 MG Oral Tablet (Aldactone)Indic ations:Paroxysma l atrial fibrillation (HCC),Localized edema Take 1/2 tablet 5 days per week 45 Tablet 3 3 Active Furosemide 40 MG Oral Tablet (Lasix)Indicatio ns:Paroxysmal atrial fibrillation (HCC),Localized edema Take 1/2 tablet 5 days per week 45 Tablet 3 3 Active Warfarin Sodium 5 MG Oral Tablet (Coumadin) Take 1 Tablet by mouth every evening. As directed by anticoagulation clinic. 30 Tablet 5 3 Active Apixaban 5 MG Oral Tablet (Eliquis) Take 1 Tablet (5 mg) by mouth in the morning and 1 Tablet (5 mg) before bedtime. 180 Tablet 3 2 023 Discontinued documented as of this encounter (statuses as of 02/05/2023) Active Problems Problem Noted Date Nonrheumatic mitral [...] as of this encounter (statuses as of 02/05/2023) Social History Tobacco Use Types Packs/Day Years [...] Progress Notes * Janice Dior RPh - 02/05/2023 3:54 PM EDT Patient Phone Numbers Patient referred to [facility] for anticoagulation management by Mac Christianson DO Anticoagulant: Warfarin Indication: Paroxysmal atrial fibrillation Goal: 2-3 Duration: Lifetime Per referral, "recent hemorrhoidal bleeding, Previously had been on Eliquis, however transitioning to Coumadin due to cost concerns with Eliquis costing over $400 / month" No discharge summary per [facility] records. Called and spoke with [facility] directory, confirmed patient is no longer admitted at this time. Per chart review, no mention of PACE/PACENET. Will assess for possible coverage. Called and spoke with patient. Confirmed warfarin rx was sent to pharmacy and able to be picked up.Given 5mg dose in the hospital today. Spoke with Dr Christianson via [place] Text. Will plan to bring INR up slowly due to recent rectal bleeding. Instructed patient to take 2.5mg dose over the weekend due to low body weight as well recent rectal bleeding. OFS scheduled for 02/08. At that time will plan to assess PACE application. Janice Dior RPh Medication Therapy Management Clinic 02/05/2023 3:55 PM documented in this encounter Plan of Treatment Upcoming Encounters Date Type Specialty Care Team Description 02/08/2023 [facility]ticoagulation [facility] [place], [address] [place] [address] 03/03/2023 Office Visit Cardiology Sterling Lockhart MD [address] [place] [address] 05/25/2023 Office Visit Cardiology Sterling Lockhart MD [address] [place] [address] Health Maintenance Due Date Last Done Comments Pneumococcal Vaccine: 65+ Years (1 - PCV) 1950 Depression Screening 1956 Albumin/Creatinine Ratio 1962 Hepatitis C Screening 1962 DTaP,Tdap,and Td Vaccines (1 - Tdap) 12/21/1963 LUNG CANCER SCREENING - USE SMARTSET 72063 1994 Zoster Vaccines (1 of 2) 1994 [...] this encounter Medical Devices Implanted Type Area Environmental Technical Officer Device Identifier Shelf Expiration Date Model / Serial / Lot Dbx 10cc [id number] - [id number] - [id number] Implanted:Qty : 1 on 01/11/2015 by Colin Krause MD at OR [facility] [place] Tissue - Human N/A: Spine Lumbar MUSCULOSKELETAL TRANSPLANT FND 08/18/2016 [id number] / [id number] / Chip Cancellous 90cc [id number] - [id number] Implanted:Qty : 1 on 04/30/2017 by Colin Krause MD at OR [facility] [place] Tissue - Human N/A: Spine Lumbar MUSCULOSKELETAL TRANSPLANT FND 01/29/2018 [id number] / / Expedium Ti Sfx 5.5 Lat A2 - [id number] Implanted:Qty : 1 on 01/11/2015 by Colin Krause MD at OR [facility] [place] N/A: Spine Lumbar JNJ : [employer] [id number] / / Expedium Ti Sfx 5.5 Lat A6 - [id number] Implanted:Qty : 2 on 04/30/2017 by Colin Kruase MD at OR [facility] [place] N/A: Spine Lumbar JNJ : [employer] [id number] / / documented as of this encounter [...] the patient have Health Care Power of Compressor Operator Adjuster? No Care Teams Tab Machine Operator Relationship Specialty Start Date End Date Casey Rodgers MD [address] [place] [address] PCP - General Family Medicine 09/04/14 documented as of this encounter
--- OUTSIDE RECORDS SUMMARY | 2023-04-17 18:33 | External Medical Summary | Summary of Care ---
Author Name Unknown Organization [facility] Address [address] [place] [address] Phone [phone] Care Team Providers Care Converter Skimmer Name Role Phone Casey Rodgers MD Primary Care Provider + [phone] Reason for Visit * Reason Onset Date Comments Medication Refill 02/26/2023 E [id number] [address] Encounter Details Date Type Department Care Team Description 02/26/2023 Refill Cardiology, [facility] [address] [facility] [place] [address] Mac Christianson, DO [address] [place] [address] CAD (coronary artery disease)* Allergies Active Allergy Reactions Severity Noted Date [...] Tablet by mouth at bedtime. 0 Active Pirlqgyhhj-OKTQ-Yw ffeine 50-325-40 MG Oral Tablet Take 1 [...] Miscellaneous Notes * Addendum Note - Linda Hoskins CMA - 02/26/2023 3:44 PM EDTAddended by: LINDA HOSKINS on: 02/26/2023 03:44 PM Modules accepted: Orders * Telephone Encounter - YONNY Burrows - 02/26/2023 12:56 PM EDT Pt called for a refill on nitroglycerin She said it was given to her in the hospital at [facility] Please refill E [id number] [place] Thank you YONNY Burrows documented in this encounter Plan of Treatment Upcoming Encounters Date Type Specialty Care Team Description 03/03/2023 Office Visit Cardiology Sterling Lockhart MD [address] [place] [address] 03/04/[address] [place] [address] 05/25/2023 Office Visit Cardiology Sterling Lockhart MD [address] [place] [address] Health Maintenance Due Date Last Done Comments Pneumococcal Vaccine: 65+ Years (1 - PCV) 1950 Depression Screening 1956 Albumin/Creatinine Ratio 1962 Hepatitis C Screening 1962 DTaP,Tdap,and Td Vaccines (1 - Tdap) 12/21/1963 LUNG CANCER SCREENING - USE SMARTSET 46370 1994 Zoster Vaccines (1 of 2) 1994 DXA Scan 12/26/2021 12/26/2014 COVID-19 Vaccine (3 - 2022-24 season) 2023 07/05/2020, 06/07/2020 Influenza Vaccine (FLU [...] this encounter Medical Devices Implanted Type Area Operating Room Nurse Device Identifier Shelf Expiration Date Model / Serial / Lot Dbx 10cc [id number] - [id number] - [id number] Implanted:Qty : 1 on 01/11/2015 by Colin Krause MD [place] [facility] [place] Tissue - Human N/A: Spine Lumbar [employer]OSKELETAL TRANSPLANT FND 08/18/2016 [id number] / [id number] / Chip Cancellous 90cc [id number] - [id number] Implanted:Qty : 1 on 04/30/2017 by Colin Krause MD [place] [facility] [place] Tissue - Human N/A: Spine Lumbar MUSCULOSKELETAL TRANSPLANT FND 01/29/2018 [id number] / / Expedium Ti Sfx 5.5 Lat A2 - [id number] Implanted:Qty : 1 on 01/11/2015 by Colin Krause MD [place] [facility] N/A: Spine Lumbar JN[place] : [employer] [id number] / / Expedium Ti Sfx 5.5 Lat A6 - [id number] Implanted:Qty : 2 on 04/30/2017 by Colin Krause MD [place] [facility] N/A: Spine Lumbar JNJ : [employer] [id number] / / documented as of this encounter Visit Diagnoses Diagnosis CAD (coronary artery disease)- Primary Coronary atherosclerosis of unspecified type of vessel, [place] or graft documented in this encounter Advance Directives Latest [...] the patient have Health Care Power of Packaging Supervisor? No Care Teams Converter Skimmer Relationship Specialty Start Date End Date Casey Rodgers MD [address] [place] [address] PCP - General Family Medicine 09/04/14 documented as of this encounter
--- OUTSIDE RECORDS SUMMARY | 2023-04-17 18:33 | External Medical Summary | Summary of Care ---
Author Name Unknown Organization [facility] Address [address] [place] [address] Phone [phone] Care Team Providers Care Senior Warehouse Clerk Name Role Phone Casey Rodgers MD Primary Care Provider [phone] Reason for Visit * Reason Comments Dosage Adjustment In Person (Anticoag Cl inic) Encounter Details Date Type Department Care Team Description 02/25/2023 Anticoagulation Pharmacy, [address] [place] [address] [place] [address] Paroxysmal atrial fibrillation (HCC)*; Anticoagulation management encounter; skilled nursing current use of anticoagulant therapy Allergies Active Allergy Reactions Severity Noted Date Comments Chlorhexidine Itching 09/10/2020 Hydrochlorothiazide Other (Please comment) 02/26/2017 Caused pancreatitis Metronidazole 02/09/2017 Pill causes severe diarrhea Ondansetron Other (Please comment) High 03/04/2018 TAYLOR documented as of this encounter (statuses as of 02/25/2023) Medications Medication Sig Dispensed Refills Start Date [...] Tablet by mouth at bedtime. 0 Active Rwzbhgfkxp-QWSH-Iq ffeine 50-325-40 MG Oral Tablet Take 1 [...] as of this encounter (statuses as of 02/25/2023) Active Problems Problem Noted Date Nonrheumatic mitral [...] as of this encounter (statuses as of 02/25/2023) Social History Tobacco Use Types Packs/Day Years [...] this encounter Progress Notes * Janice Dior, [facility] - 02/25/2023 1:42 PM EDT Medication Therapy Disease Management - Anticoagulation Patient: Alexia Campos | : 1945 Patient presents w/ spouse and son Subjective Patient-Reported Symptoms: Patient Findings Negatives: Signs/symptoms of thrombosis, Signs/symptoms of bleeding, Change in health, Change in alcohol use, Change in activity, Upcoming invasive procedure, Missed doses, Extra doses, Change in medications, Change in diet/appetite, Bruising Objective Current Warfarin Dose As of 02/25/2023 Warfarin maintenance plan: No maintenance plan INR Result As of 02/25/2023 INR goal: 2.0-3.0 INR used for dosin.1 (02/25/2023) Assessment & Plan Warfarin Plan As of 02/25/2023 Full warfarin instructions: 2.5 mg every day Next INR check: 03/04/2023 Repeat PT/INR in 1 week(s) Weekly dose: established Additional Dosing Information: Description Ensure Janice Dior [facility] Clinical Pharmacist 02/25/2023, 1:42 PM documented in this encounter Plan of Treatment Upcoming Encounters Date Type Specialty Care Team Description 03/03/2023 Office Visit Cardiology Sterling Lockhart MD [address] [place] [address] 03/04/2023 Anticoagulation Pharmacy [address] [place] [address] 05/25/2023 Office Visit Cardiology Sterling Lockhart MD [address] [place] [address] Health Maintenance Due Date Last Done Comments Pneumococcal Vaccine: 65+ Years (1 - PCV) 1950 Depression Screening 1956 Albumin/Creatinine Ratio 1962 Hepatitis C Screening 1962 DTaP,Tdap,and Td Vaccines (1 - Tdap) 12/21/1963 LUNG CANCER SCREENING - USE SMARTSET 59060 1994 Zoster Vaccines (1 of 2) 1994 [...] this encounter Medical Devices Implanted Type Area Director Of Gift Planning Device Identifier Shelf Expiration Date Model / Serial / Lot Dbx 10cc [id number] - [id number] - [id number] Implanted:Qty : 1 on 01/11/2015 by Colin Krause MD at [place] [facility] [place] Tissue - Human N/A: Spine Lumbar [employer]LETAL [employer]ANSPLANT FND 08/18/2016 [id number] / [id number] / Chip Cancellous 90cc [id number] - [id number] Implanted:Qty : 1 on 04/30/2017 by Colin Krause MD at OR [facility] [place] Tissue - Human N/A: Spine Lumbar MUSCULOSKELETAL TRANSPLANT FND 01/29/2018 [id number] / / Expedium Ti Sfx 5.5 Lat A2 - [id number] Implanted:Qty : 1 on 01/11/2015 by Colin Krause MD at OR [facility] [place] N/A: Spine Lumbar JNJ : [employer] [id number] / / Expedium Ti Sfx 5.5 Lat A6 - [id number] Implanted:Qty : 2 on 04/30/2017 by Colin Krause MD at OR [facility] [place] N/A: Spine Lumbar JNJ : [employer] [id number] / / documented as of this encounter Procedures Procedure Name Priority Date/Time Associated Diagnosis Comments INR FINGERSTICK, POINT OF CARE STAT 02/25/2023 1:56 PM EDT Paroxysmal atrial fibrillation (HCC) Anticoagulation management encounter skilled nursing current use of anticoagulant therapy documented in this encounter Results * INR FINGERSTICK, POINT OF CARE (02/25/2023 1:56 PM EDT) Fingerstick INR 2.1 INR 1:57 PM EDT [facility] [place] [id number] Blood 02/25/2023 1:56 PM EDT 02/25/2023 1:57 PM EDT [facility]ative [facility] - 02/25/2023 1:57 PM EDT Therapeutic ranges for non-operative patients: Prophylaxsis/treatment of DVT: (Range:2.0-3.0) Treatment of pulmonary embolism:(Range:2.0-3.0) Prevention of systemic embolism from: -tissue heart valves -acute myocardial infarction -valvular heart disease -atrial fibrillation (Range: 2.0-3.0) Mechanical prosthetic valves: (Range: 2.5-3.5) Janice Dior [facility] LAB POINT OF CARE TEST DOCKED DEVICE UNSOLICITED RESULTS [facility] [place] [address] [place] [address] documented in this encounter Visit Diagnoses Diagnosis Paroxysmal atrial fibrillation (HCC)- Primary Atrial fibrillation Anticoagulation management encounter Encounter for therapeutic drug monitoring terminal superintendent current use of anticoagulant therapy documented in [...] the patient have Health Care Power of Airplane Charter Clerk? No Care Teams Senior Warehouse Clerk Relationship Specialty Start Date End Date Casey Rodgers MD [address] [place] [address] PCP - General Family Medicine 09/04/14 documented as of this encounter"
[2023-04-17] MEDS ORDERED: NITROGLYCERIN 2% OINTMENT 30GM TUBE EXT STA (18:54)
[2023-04-17] MEDS ORDERED: ONDANSETRON INJ 2 MG/ML 2 ML VIAL IV STA (18:54)
[2023-04-17] MEDS ORDERED: MoRPHine SULFATE 2 MG/ML CARP IV STA (18:54)
--- NOTE | 2023-04-17 19:13 | Emergency Department Note ---
Impression & Plan SOB (shortness of breath), Hypertension, Precordial chest pain, Fluid overload, Pedal edema ED Provider Note NAME: REGGIE POWERS AGE: 77 SEX: F : 1945 ARRIVES VIA: Walk-In INFORMANT: [Patient][family] ED PROVIDER(S): [Elver Scott MD] CHIEF COMPLAINT: Chest pain, shortness of breath, edema HISTORY OF PRESENT ILLNESS: The patient is a 77-year-old female who has noticed increasing leg edema over the last week. She states that her legs are about 5 times the size as baseline. She is taking her diuretics and they have not helped. Today, all day, she has felt chest pain and shortness of breath. She did notice a slight cough but the cough is clear. The patient states that she has tried some hydrocodone for pain but has had no relief. She admits she did run out of her nitroglycerin patches yesterday. The patient denies any fever. She has not had diarrhea. She did vomit a few times over the last several days. The patient states that in the past, she has had excessive fluid buildup requiring hospitalization, a Meléndez catheter and IV diuresis. PMHx/PSHx/Social Hx: See Below PHYSICAL EXAM: GENERAL: Patient is in no acute distress. HEENT: No acute trauma, normocephalic atraumatic, mucous membranes moist, no nasal congestion. NECK: No stridor, no adenopathy, no meningismus, trachea is midline. LUNGS: Clear to auscultation bilaterally, no wheeze, no rhonchi, breath sounds equal. HEART: Subtle systolic murmur, regular rate and rhythm. ABDOMEN: Soft, nontender, no peritonitis. EXTREMITIES: No cyanosis, full range of motion of all the joints without pain or difficulty. Significant bilateral pedal edema up to her knees. NEUROLOGIC: Oriented x 3, no acute motor or sensory deficits, no focal weakness. SKIN: No jaundice, no diaphoresis. Back: The patient has a bandage on the mid thoracic back, this is apparently from hardware which has broken through the skin. DIFFERENTIAL DIAGNOSIS: CHF, venous insufficiency, fluid overload, renal failure, electrolyte imbalance, RI, among others. EMERGENCY DEPARTMENT PROCEDURES: MEDICAL DECISION MAKING: There is no leukocytosis. No worrisome anemia. There is a normal platelet count. INR is elevated at 1.8. The value is slightly therapeutic for someone using Coumadin. There was no significant electrolyte abnormality, no renal failure. No concerning liver enzyme elevation. BNP was elevated consistent with fluid overload. ECG showed a normal sinus rhythm with some older changes, no ST elevation. Cardiac enzyme testing x 1 is not consistent with acute cardiac injury. Urinalysis did not show findings of infection. On exam, the patient had significant bilateral pedal edema. The patient had a Meléndez catheter placed to monitor urine output. She received 40 mg of IV Lasix. She was given 1 inch of nitroglycerin paste. She received IV morphine for pain. The patient has shown marked improvement. She has diuresed over 2 L. She is currently resting comfortably and feeling improved. The patient is in need of a hospital stay. She is fluid overloaded and in need of IV diuresis. She complains of chest pain which certainly may be anginal in nature. I did speak with the patient and case management, the on-call hospitalist was consulted. Prior/Outside records/notes reviewed: Discharge note from 03/03/2023 discussing her admission for chest pain and her history of fluid overload. ECG per my interpretation: Indication was chest pain. The ECG shows a normal sinus rhythm with a rate of 72. There is an old anterior infarct. There is baseline artifact and some nonspecific ST change. There is no ST elevation or PVCs. The QTc is 3 9. Continuous Cardiac Monitoring per my interpretation: An order was placed for continuous cardiac monitoring. The monitor shows a rate of 82 with normal sinus rhythm. Imaging/x-ray results per my interpretation: Chest x-ray does not show CHF, pneumonia or pneumothorax. Chronic Medical/Social conditions affecting care: Coronary artery disease, advanced age, chronic CHF. Care/Management discussed with: Case management and the on-call hospitalist. Level of care consideration(s): After review of the information above and other included data: --I believe the patient requires escalation of care to admission DISPOSITION: Admission Past Med/Surg History Medical History HLD (hyperlipidemia) HTN (hypertension) CAD (coronary artery disease) Encounter for pre-operative examination Opiate dependence Atrial fibrillation Gastritis "Getting under control" Depression MVP (mitral valve prolapse) Not noted on 03/2016 echo (Mild MR was present) Recurrent UTI Fracture, tibia, with fibula History of syncope Previously followed with cardiology, per Dr Lockhart ([facility]), "syncope in the setting of polypharmacy for severe low back pain." Last seen by cardio 11/2018, to follow up PRN per cardio. History of blood transfusion Pt reports post-op after hip surgery and lumbar surgery Migraine Postlaminectomy syndrome of lumbosacral region Postlaminectomy syndrome of thoracic region Pancreatitis Approximately 2017 Hiatal hernia Gastric ulcer GERD (gastroesophageal reflux disease) Surgical History History of hip surgery Right hip History of anesthesia reaction "severe hypotension" per patient following second back surgery. ([facility] 2017). Review of records shows documentation from anesthesia that hypotension was treated in PACU, BP in post-anesthetic evaluation 92/51. Subsequent intrathecal pain pump (03/19/20): Grade view 1, MAC#3, ETT 6.5 at [facility] without issue noted per post-op anesthesia progress note/discharge summary. History of cholecystectomy History of open reduction and internal fixation (ORIF) procedure Left hip S/P hardware removal Left hip x2 History of dilatation and curettage S/P CECILIA-BSO History of colonoscopy History of esophagogastroduodenoscopy (EGD) History of cataract surgery R/L History of cardiac cath Approximately 1994 > no stents H/O spinal fusion Extensive [id number] (x2 lumbar fusions) History of appendectomy Family History Mother Family history of diabetes mellitus Grandmother (Maternal) Family history of diabetes mellitus Grandmother (Paternal) Family history of diabetes mellitus Other No family history of adverse response to anesthesia Social History Smoking Status: Current every day smoker Tobacco Type: Cigarettes packs per day: 0.5; Cigarettes Per Day: 10; Second Hand Exposure: No; Do You Dip or Chew Tobacco: No; Hx Alcohol Use: No Hx Substance Use: No Preferred Language: Tajik Communication Ability: Effective Visual Impairment: No Limitations Hearing Ability: Normal 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 Beliefs That Will Affect Care: None marital status: Current Living Situation: Spouse Current Living Situation Comment: w/ current occupational status: retired Feels Safe at Home: Yes Assistive Devices: None Allergies Allergies Allergy/AdvReac Type Severity Reaction Status Date / Time chlorhexidine Allergy Intermediate Rash Verified 03/31/23 21:37 hydrochlorothiazide AdvReac Severe Pancreatiti Verified 03/31/23 21:37 s fluconazole [From Diflucan] AdvReac Intermediate Diarrhea Verified 03/31/23 21:37 (with oral) ondansetron [From Zofran] AdvReac Intermediate Headaches Verified 03/31/23 21:37 Home Meds Home Medications Medication Instructions Recorded Confirmed multivitamin 1 tab PO QAM 02/05/20 04/17/23 omeprazole 20 mg tablet,delayed 20 mg PO QPM 01/20/22 04/17/23 release rizatriptan 10 mg tablet 10 mg PO UD PRN Migraine Headache 01/20/22 04/17/23 trazodone 100 mg tablet 200 mg PO HS 01/20/22 04/17/23 promethazine 12.5 mg tablet 12.5 mg PO Q6H PRN Nausea 06/08/22 04/17/23 Hydromorphone Pain Pump 0 mg INJ DIRECTED 01/31/23 04/17/23 hxihhalnho-kogwrgfbjfsid-nuiclavg 1 tab PO TID PRN Migraine Headache 01/31/23 04/17/23 50 mg-325 mg-40 mg tablet calcium carbonate 600 mg-vitamin 1 tab PO DAILY 01/31/23 04/17/23 D3 10 mcg (400 unit) tablet (Calcium 600 + D(3)) furosemide 20 mg tablet (Lasix) 20 mg PO 5XWK 01/31/23 04/17/23 metoprolol succinate 25 mg 25 mg PO QAM 01/31/23 04/17/23 tablet,extended release 24 hr spironolactone 25 mg tablet 25 mg PO 3XWK 01/31/23 04/17/23 buspirone 5 mg tablet 5 mg PO BID 02/10/23 04/17/23 hydrocodone 5 mg-acetaminophen 325 1 - 2 tab PO Q4H PAIN 03/31/23 04/17/23 mg tablet warfarin 5 mg tablet See Rx Instructions .Route .COMPLEX 03/31/23 04/17/23 potassium chloride 20 mEq 20 meq PO QAM 04/17/23 04/17/23 tablet,extended release(part/cryst) (Klor-Con M) Previous Rx's Medication Instructions Recorded atorvastatin 10 mg tablet 10 mg PO QAM #30 tabs 11/10/22 nitroglycerin 0.4 mg sublingual 0.4 mg sublingual Q5M PRN chest 02/18/23 tablet pain #30 tabs nitroglycerin 0.4 mg/hr 1 patch transdermal QAM #30 ea 03/03/23 transdermal 24 hour patch (Nitro-Dur) Results & Data (ED) Vital Signs Vital Signs - 24 hr 04/17/23 18:35 04/17/23 18:54 04/17/23 19:06 Temperature 36.5 C Temperature Source Temporal Artery Scan Pulse Rate 79 88 Pulse Rate [Apical] 82 Pulse Rhythm [Apical] Respiratory Rate 26 H 18 Respiratory Effort / Characteristics Non-Labored Spontaneous Respiratory Depth Normal Respiratory Pattern Regular Blood Pressure 164/91 H Blood Pressure [Right Arm] 183/121 H Blood Pressure Mean 115 Blood Pressure Mean [Right Arm] 141 Blood Pressure Position [Right Arm] Lying Pulse Oximetry 96 97 Oxygen Delivery Method Room Air Sepsis Recent Fever Within 48 Hours No Sepsis New/Unexplained Change in Mental Status N/A Sepsis Action Taken by Nursing No Action Required 04/17/23 19:08 04/17/23 22:35 Temperature Temperature Source Pulse Rate Pulse Rate [Apical] 70 Pulse Rhythm [Apical] Regular Respiratory Rate 18 Respiratory Effort / Characteristics Non-Labored Spontaneous Respiratory Depth Normal Respiratory Pattern Regular Blood Pressure Blood Pressure [Right Arm] 147/115 H Blood Pressure Mean Blood Pressure Mean [Right Arm] 125 Blood Pressure Position [Right Arm] Lying Pulse Oximetry 97 97 Oxygen Delivery Method Room Air Room Air Sepsis Recent Fever Within 48 Hours Sepsis New/Unexplained Change in Mental Status Sepsis Action Taken by Long Term Medications Current Medication List: was personally reviewed by me Laboratory Data Attestation: I reviewed the patient's lab results. 04/17/23 19:49 04/17/23 19:49 Lab Results 04/17/23 04/17/23 Range/Units 19:49 19:52 WBC 8.95 (4.8-10.8) K/ul RBC 5.09 (4.20-5.40) M/uL Hgb 16.7 H (12.0-16.0) g/dl Hct 50.6 H (37.0-47.0) % MCV 99.4 (80.0-100.0) fL MCH 32.8 (25.0-34.0) pg MCHC 33.0 (32.0-36.0) g/dL RDW Std Deviation 53.9 H (36.4-46.3) fL RDW Coeff of Oliver 14.6 H (11.5-14.5) % Plt Count 175 (130-400) K/uL MPV 9.8 (9.4-12.4) fL Immature Gran % (Auto) 0.3 % Neut % (Auto) 78.2 % Lymph % (Auto) 14.1 % [place] % (Auto) 6.1 % Eos % (Auto) 0.7 % Baso % (Auto) 0.6 % Neut # (Auto) 7.00 H (1.40-6.50) K/uL Lymph # (Auto) 1.26 (1.20-3.40) K/uL Izard # (Auto) 0.55 (0.11-0.59) K/uL Eos # (Auto) 0.06 (0.00-0.50) K/uL Baso # (Auto) 0.05 (0.00-0.20) K/uL Immature Gran # (Auto) 0.03 (0.01-0.20) K/uL PT 18.8 H (9.0-12.0) Seconds INR 1.8 H (0.9-1.1) APTT 41 H (21-31) Seconds PTT Ratio 1.5 Sodium 137 (136-145) mmol/L Potassium 3.8 (3.5-5.1) mmol/L Chloride 101 (98-107) mmol/L Carbon Dioxide 30 (21-32) mmol/L Anion Gap 6 (3-11) BUN 19 (6-23) mg/dl Creatinine 0.47 L (0.6-1.2) mg/dl Est Cr Clr Drug Dosing 74.4 ml/min Est GFR ( Amer) 109.7 ml/min Est GFR (Non-Af Amer) 94.6 ml/min BUN/Creatinine Ratio 40.4 H (10-20) Glucose 103 H (70-99(Fasting)) mg/dl Calcium 9.0 (8.6-10.3) mg/dl Magnesium 2.0 (1.7-2.4) mg/dl Total Bilirubin 0.6 (0.2-1.0) mg/dl AST 12 L (13-39) U/L ALT 7 (7-52) U/L Alkaline Phosphatase 85 (34-104) U/L Troponin I High Sens 6.1 (0-14) pg/ml B-Natriuretic Peptide 209 H (0-100) pg/ml Total Protein 6.6 (6.0-8.3) gm/dl Albumin 4.0 (3.4-5.0) gm/dl Globulin 2.6 (2.5-4.0) gm/dl Albumin/Globulin Ratio 1.5 (0.9-2) Urine Color Yellow Urine Appearance Turbid A (Clear) Urine pH 8.5 H (4.5-7.5) Ur Specific [place] 1.023 (1.000-1.030) Urine Protein 1+ H (Negative) Urine Glucose (UA) Negative (Negative) Urine Ketones Negative (Negative) Urine Blood Negative (Negative) Urine Nitrite Negative (Negative) Urine Bilirubin Negative (Negative) Urine Urobilinogen Negative (Negative) Ur Leukocyte Esterase Negative (Negative) Urine WBC (Auto) 1-5 (0-5) /hpf Urine RBC (Auto) 5-10 H (0-4) /hpf U Hyaline Cast (Auto) 0 (0-5) /lpf U Epithel Cells (Auto) 20-30 H (0-5) /lpf Urine Bacteria (Auto) 2+ H (Negative) Administered Medications Morphine Sulfate (Morphine Sulfate 2 Mg/Ml Carp) 2 mg IV Q15M PRN PRN Reason: Pain Stop: 05/01/23 18:53 Last Admin: 04/17/23 21:13 Dose: 2 mg Documented By: SANTOS Discontinued Medications Furosemide (Furosemide 40 Mg/4 Ml Vial) 40 mg IV ONE ONE Stop: 04/17/23 20:08 Last Admin: 04/17/23 20:24 Dose: 40 mg Documented By: SANTOS Morphine Sulfate (Morphine Sulfate 2 Mg/Ml Carp) 2 mg IV NOW STA Stop: 04/17/23 18:55 Last Admin: 04/17/23 19:17 Dose: 2 mg Documented By: SANTOS Nitroglycerin (Nitroglycerin 2% Ointment 30gm Tube) 1 inch EXT NOW STA Stop: 04/17/23 18:55 Last Admin: 04/17/23 19:14 Dose: 1 inch Documented By: SANTOS Ondansetron HCl (Ondansetron Inj 2 Mg/Ml 2 Ml Vial) 4 mg IV NOW STA Stop: 04/17/23 18:55 Last Admin: 04/17/23 19:18 Dose: Not Given Documented By: SANTOS Discharge Plan Visit Data Chief Complaint: Chest Pain Stated Complaint: SOB, CHEST PAIN, BOTH LEGS SWOLLEN ED Provider: Elver Scott Discharge Problem: SOB (shortness of breath), Hypertension, Precordial chest pain, Fluid overload, Pedal edema Patient Disposition: Admitted As Inpatient Condition: Fair Forms Stand Alone Forms: [employer] [facility] Event[employer] Prescriptions Prescriptions: No Action promethazine 12.5 mg tablet 12.5 mg PO Q6H PRN (Reason: Nausea) buspirone 5 mg tablet 5 mg PO BID multivitamin Tablet 1 tab PO QAM trazodone 100 mg Tablet 200 mg PO HS omeprazole 20 mg Tablet,Delayed Release (Dr/Ec) 20 mg PO QPM rizatriptan 10 mg Tablet 10 mg PO UD PRN (Reason: Migraine Headache) Rx Instructions: take 1 tab at onset of headache; if no relief may repeat 1 tab after at least 2 hrs; max = 3 tabs/24 hr atorvastatin 10 mg Tablet 10 mg PO QAM Qty: 30 0RF [id number]-vtnb 50-325-40 mg Tablet 1 tab PO TID PRN (Reason: Migraine Headache) furosemide [Lasix] 20 mg Tablet 20 mg PO 5XWK Rx Instructions: Wednesday through Wednesday calcium carbonate-vitamin D3 [Calcium 600 + D(3)] 600 mg-10 mcg (400 unit) Tablet 1 tab PO DAILY Hydromorphone Pain Pump 0 mg INJ DIRECTED metoprolol succinate 25 mg tablet extended release 24 hr 25 mg PO QAM spironolactone 25 mg tablet 25 mg PO 3XWK Rx Instructions: Wednesday, Wednesday, Wednesday nitroglycerin [Nitro-Dur] 0.4 mg/hr Patch 24 Hour 1 patch transdermal QAM Qty: 30 0RF hydrocodone-acetaminophen 5-325 mg tablet 1 - 2 tab PO Q4H MDD 4 GRAMS APAP/24 HOURS warfarin 5 mg tablet See Rx Instructions .ROUTE .COMPLEX Rx Instructions: TAKES 2.5 MG WED, , WED, , WED & SAT. DOES NOT TAKE ANY ON MONDAYS. potassium chloride [Klor-Con M20] 20 mEq tablet,ER particles/crystals 20 meq PO QAM Rx Instructions: take for 7 days nitroglycerin 0.4 mg tablet, sublingual 0.4 mg sublingual Q5M PRN (Reason: chest pain) Qty: 30 0RF Rx Instructions: max 3 tabs, if pain persists seek immediate medical attention Referrals Referrals: Casey Rodgers [Primary Care Provider] - Discharge Problem: Hypertension Qualifiers: Hypertension type: unspecified Qualified Code(s): I10 - Essential (primary) hypertension Fluid overload Qualifiers: Hypervolemia type: unspecified Qualified Code(s): E87.70 - Fluid overload, unspecified
[2023-04-17] MEDS ORDERED: FUROSEMIDE 40 MG/4 ML VIAL IV ONE (20:07)
[2023-04-17 20:24] LABS: Albumin Globulin Ratio 1.5 (0.9-2); BUN Creatinine Ratio 40.4 (10-20); Bilirubin,Total 0.6 mg/dl (0.2-1.0); Creatinine Clr Calc Pharmacy 74.4 ml/min; Est GFR (African American) 109.7 ml/min; Est GFR (Non-African American) 94.6 ml/min; Globulin 2.6 gm/dl (2.5-4.0); Potassium 3.8 mmol/L (3.5-5.1); Total Protein 6.6 gm/dl (6.0-8.3)
[2023-04-17 20:31] LABS: Troponin I High Sensitivity 6.1 pg/ml (0-14)
[2023-04-17 20:35] LABS: Basophils # (auto) 0.05 K/uL (0.00-0.20); Basophils % (auto) 0.6 %; Eosinophils # (auto) 0.06 K/uL (0.00-0.50); Eosinophils % (auto) 0.7 %; Hematocrit (blood only) 50.6 % (37.0-47.0); Hemoglobin 16.7 g/dl (12.0-16.0); Immature Granulocytes # (auto) 0.03 K/uL (0.01-0.20); Immature Granulocytes % (auto) 0.3 %; Lymphocytes # (auto) 1.26 K/uL (1.20-3.40); Lymphocytes % (auto) 14.1 %; Mean Corpuscular Hemoglobin 32.8 pg (25.0-34.0); Mean Corpuscular Volume 99.4 fL (80.0-100.0); Mean Platelet Volume 9.8 fL (9.4-12.4); Monocytes # (auto) 0.55 K/uL (0.11-0.59); Monocytes % (auto) 6.1 %; Neutrophils % (auto) 78.2 %; Platelet Count 175 K/uL (130-400); RDW Coefficient of Variation 14.6 % (11.5-14.5); RDW Standard Deviation 53.9 fL (36.4-46.3); Red Blood Count 5.09 M/uL (4.20-5.40); White Blood Count 8.95 K/ul (4.8-10.8)
[2023-04-17 20:50] LABS: INR 1.8 (0.9-1.1); Partial Thromboplastin Ratio 1.5; Partial Thromboplastin Time 41 Seconds (21-31); Prothrombin Time 18.8 Seconds (9.0-12.0)
[2023-04-17 20:54] LABS: Appearance Urine Turbid (Clear); Bacteria Urine Automated 2+ (Negative); Bilirubin Urine Negative (Negative); Blood Urine Negative (Negative); Cast Urine Automated 0 /lpf (0-5); Color Urine Yellow; Epithelial Cell Urine Auto 20-30 /lpf (0-5); Glucose Urine UA Negative (Negative); Ketones Urine Negative (Negative); Leukocyte Esterase Urine Negative (Negative); Nitrite Urine Negative (Negative); Specific Gravity Urine 1.023 (1.000-1.030); Urobilinogen Urine Negative (Negative); pH Urine 8.5 (4.5-7.5)
[2023-04-17 20:59] LABS: Protein Urine 1+ (Negative)
[2023-04-17] MEDS: MoRPHine SULFATE 2 MG/ML CARP IV PRN (21:13)
[2023-04-18] MEDS: MoRPHine SULFATE 2 MG/ML CARP IV PRN (00:02)
[2023-04-18] MEDS ORDERED: traZODone HCL 100 MG TAB PO STA (00:17)
[2023-04-18] MEDS ORDERED: busPIRone 5 MG TAB PO STA (00:17)
--- NOTE | 2023-04-18 01:13 | History & Physical Report ---
Date of Service April 18, 2023 Assessment & Plan (1) Acute diastolic (congestive) heart failure: Plan: 77-year-old female with past med history significant for hyperlipidemia, paroxysmal atrial fibrillation, chronic heart failure with preserved ejection fraction, hypertension, nonrheumatic mitral valve regurgitation, GERD, bilateral low back pain, thrombocytopenia, tobacco use, presents with chest pain and lower extremity edema. Patient ran out of her nitro patches couple of days ago. Today morning she woke up with chest pain. And also she noticed increasing swelling significantly in the lower extremities last couple of days. Acute diastolic CHF Significant increase in lower extremity edema Hold home p.o. diuretics Received IV Lasix 40 mg in ER and diuresed 2.3 L Continue with IV Lasix 40 mg twice daily Monitor on telemetry floor Daily weights and I's and O's Follow echo Consult cardiology in a.m. Chest pain ran off Nitro patches Initial workup unremarkable Continue home Nitropatch Serial enzymes and echo Consult cardiology in a.m. Nonobstructive CAD On cath on March 02, 2023 On statin and metoprolol and Coumadin History of paroxysmal atrial fibrillation On metoprolol and Coumadin Follow INR Possible UTI Will follow cultures Rocephin Hypertension Metoprolol, Nitropatch and diuretics Will monitor Hyperlipidemia On statin Tobacco abuse Needs counseling Chronic back pain On pain pump Migraine On rizatriptan as needed Depression with anxiety Trazodone and buspirone DVT prophylaxis SCDs On Coumadin follow PT/INR Disposition Telemetry floor Full code History of Present Illness Chief Complaint: Chest pain and lower extremity edema Primary Care Provider: Casey Rodgers 77-year-old female with past med history significant for hyperlipidemia, paroxysmal atrial fibrillation, chronic heart failure with preserved ejection fraction, hypertension, nonrheumatic mitral valve regurgitation, GERD, bilateral low back pain, thrombocytopenia, tobacco use, presents with chest pain and lower extremity edema. Patient ran out of her nitro patches couple of days ago. Today morning she woke up with chest pain. And also she noticed increasing swelling significantly in the lower extremities last couple of days. Lives at home with her . Currently placed on nitro patch and chest pain is improving. Also received IV Lasix 40 mg in the ER and diuresed 2.3 L. No cough. No fever. No shortness of breath. No nausea. Appetite is down. No abdominal pain. Normal bowel and bladder movements. Current resting comfortably and hemodynamically stable. Saturating okay. Has a patch on her thoracic spine region ,states thoracic spine fusion instrument jutting out. Also has pain pump. Past medical history. As mentioned above. Past surgical history. Multiple lumbar fusion surgeries. Thoracic spine fusion surgery. Total hysterectomy. Social history. . Smokes half pack a day for last 50 years. No alcohol use. No drug use. Family history. No family history on file Allergies Allergy/AdvReac Type Severity Reaction Status Date / Time chlorhexidine Allergy Intermediate Rash Verified 03/31/23 21:37 hydrochlorothiazide AdvReac Severe Pancreatiti Verified 03/31/23 21:37 s fluconazole [From Diflucan] AdvReac Intermediate Diarrhea Verified 03/31/23 21:37 (with oral) ondansetron [From Zofran] AdvReac Intermediate Headaches Verified 03/31/23 21:37 Home Medications Medication Instructions Recorded Confirmed Type multivitamin 1 tab PO QAM 02/05/20 04/17/23 History omeprazole 20 mg tablet,delayed 20 mg PO QPM 01/20/22 04/17/23 History release rizatriptan 10 mg tablet 10 mg PO UD PRN Migraine Headache 01/20/22 04/17/23 History trazodone 100 mg tablet 200 mg PO HS 01/20/22 04/17/23 History promethazine 12.5 mg tablet 12.5 mg PO Q6H PRN Nausea 06/08/22 04/17/23 History atorvastatin 10 mg tablet 10 mg PO QAM #30 tabs 11/10/22 04/17/23 Rx Hydromorphone Pain Pump 0 mg INJ DIRECTED 01/31/23 04/17/23 History [id number] 1 tab PO TID PRN Migraine Headache 01/31/23 04/17/23 History 50 mg-325 mg-40 mg tablet calcium carbonate 600 mg-vitamin 1 tab PO DAILY 01/31/23 04/17/23 History D3 10 mcg (400 unit) tablet (Calcium 600 + D(3)) furosemide 20 mg tablet (Lasix) 20 mg PO 5XWK 01/31/23 04/17/23 History metoprolol succinate 25 mg 25 mg PO QAM 01/31/23 04/17/23 History tablet,extended release 24 hr spironolactone 25 mg tablet 25 mg PO 3XWK 01/31/23 04/17/23 History buspirone 5 mg tablet 5 mg PO BID 02/10/23 04/17/23 History nitroglycerin 0.4 mg sublingual 0.4 mg sublingual Q5M PRN chest 02/18/23 04/17/23 Rx tablet pain #30 tabs nitroglycerin 0.4 mg/hr 1 patch transdermal QAM #30 ea 03/03/23 04/17/23 Rx transdermal 24 hour patch (Nitro-Dur) hydrocodone 5 mg-acetaminophen 325 1 - 2 tab PO Q4H PAIN 03/31/23 04/17/23 History mg tablet warfarin 5 mg tablet See Rx Instructions .Route .COMPLEX 03/31/23 04/17/23 History potassium chloride 20 mEq 20 meq PO QAM 04/17/23 04/17/23 History tablet,extended release(part/cryst) (Jesús M) Past Med/Surg History Medical History HLD (hyperlipidemia) HTN (hypertension) CAD (coronary artery disease) Encounter for pre-operative examination Opiate dependence Atrial fibrillation Gastritis "Getting under control" Depression MVP (mitral valve prolapse) Not noted on 03/2016 echo (Mild MR was present) Recurrent UTI Fracture, tibia, with fibula History of syncope Previously followed with cardiology, per Dr Lockhart ([facility]), "syncope in the setting of polypharmacy for severe low back pain." Last seen by cardio 11/2018, to follow up PRN per cardio. History of blood transfusion Pt reports post-op after hip surgery and lumbar surgery Migraine Postlaminectomy syndrome of lumbosacral region Postlaminectomy syndrome of thoracic region Pancreatitis Approximately 2018 Hiatal hernia Gastric ulcer GERD (gastroesophageal reflux disease) Surgical History History of hip surgery Right hip History of anesthesia reaction "severe hypotension" per patient following second back surgery. ([facility] 2017). Review of records shows documentation from anesthesia that hypotension was treated in PACU, BP in post-anesthetic evaluation 92/51. Subsequent intrathecal pain pump (03/19/20): Grade view 1, MAC#3, ETT 6.5 at [facility] without issue noted per post-op anesthesia progress note/discharge summary. History of cholecystectomy History of open reduction and internal fixation (ORIF) procedure Left hip S/P hardware removal Left hip x2 History of dilatation and curettage S/P CECILIA-BSO History of colonoscopy History of esophagogastroduodenoscopy (EGD) History of cataract surgery R/L History of cardiac cath Approximately 1994 > no stents H/O spinal fusion Extensive [id number] (x2 lumbar fusions) History of appendectomy Family History Mother Family history of diabetes mellitus Grandmother (Maternal) Family history of diabetes mellitus Grandmother (Paternal) Family history of diabetes mellitus Other No family history of adverse response to anesthesia Social History Smoking Status: Current every day smoker Tobacco Type: Cigarettes packs per day: 0.5; Cigarettes Per Day: 10; Second Hand Exposure: No; Do You Dip or Chew Tobacco: No; Hx Alcohol Use: No Hx Substance Use: No Preferred Language: Romansh Communication Ability: Effective Visual Impairment: No Limitations 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 Head- atraumatic Eyes- PERRL. ENT- oropharynx clear Neck- supple, no JVD Lungs- clear to auscultation no wheezing or crackles. Heart- regular rhythm; no murmur, no gallop. Abdomen- normal bowel sounds, soft, nontender, no distension. Extremities- b/l lower extremity gross edema present. no erythema seen. Neuro- alert, oriented x 3; PERRL, no facial palsy; no dysarthria; moves extremities. Skin- warm & dry Results & Data Results & Data Vital Signs (Past 12 Hours) Vital Signs Temp Pulse Pulse Resp BP BP Pulse Ox 04/18/23 00:00 70 19 154/82 H 94 12/09/23 23:00 65 04/17/23 22:35 70 18 147/115 H 97 04/17/23 19:08 97 04/17/23 19:06 82 18 183/121 H 97 04/17/23 18:54 88 04/17/23 18:35 36.5 C 79 26 H 164/91 H 96 O2 Del Method 04/18/23 00:00 Room Air 04/17/23 23:00 04/17/23 22:35 Room Air 04/17/23 19:08 Room Air 04/17/23 19:06 Room Air 04/17/23 18:54 04/17/23 18:35 Diagnostic Findings Laboratory Results WBC 8.95 K/ul (4.8-10.8) 04/17/23 19:49 RBC 5.09 M/uL (4.20-5.40) 04/17/23 19:49 Hgb 16.7 g/dl (12.0-16.0) H 04/17/23 19:49 Hct 50.6 % (37.0-47.0) H 04/17/23 19:49 MCV 99.4 fL (80.0-100.0) 04/17/23 19:49 MCH 32.8 pg (25.0-34.0) 04/17/23 19:49 MCHC 33.0 g/dL (32.0-36.0) 04/17/23 19:49 RDW Std Deviation 53.9 fL (36.4-46.3) H 04/17/23 19:49 RDW Coeff of Oliver 14.6 % (11.5-14.5) H 04/17/23 19:49 Plt Count 175 K/uL (130-400) 04/17/23 19:49 MPV 9.8 fL (9.4-12.4) 04/17/23 19:49 Immature Gran % (Auto) 0.3 % 04/17/23 19:49 Neut % (Auto) 78.2 % 04/17/23 19:49 Lymph % (Auto) 14.1 % 04/17/23 19:49 [place] % (Auto) 6.1 % 04/17/23 19:49 Eos % (Auto) 0.7 % 04/17/23 19:49 Baso % (Auto) 0.6 % 04/17/23 19:49 Neut # (Auto) 7.00 K/uL (1.40-6.50) H 04/17/23 19:49 Lymph # (Auto) 1.26 K/uL (1.20-3.40) 04/17/23 19:49 [place] # (Auto) 0.55 K/uL (0.11-0.59) 04/17/23 19:49 Eos # (Auto) 0.06 K/uL (0.00-0.50) 04/17/23 19:49 Baso # (Auto) 0.05 K/uL (0.00-0.20) 04/17/23 19:49 Immature Gran # (Auto) 0.03 K/uL (0.01-0.20) 04/17/23 19:49 PT 18.8 Seconds (9.0-12.0) H 04/17/23 19:49 INR 1.8 (0.9-1.1) H 04/17/23 19:49 APTT 41 Seconds (21-31) H 04/17/23 19:49 PTT Ratio 1.5 04/17/23 19:49 Sodium 137 mmol/L (136-145) 04/17/23 19:49 Potassium 3.8 mmol/L (3.5-5.1) 04/17/23 19:49 Chloride 101 mmol/L (98-107) 04/17/23 19:49 Carbon Dioxide 30 mmol/L (21-32) 04/17/23 19:49 Anion Gap 6 (3-11) 04/17/23 19:49 BUN 19 mg/dl (6-23) 04/17/23 19:49 Creatinine 0.47 mg/dl (0.6-1.2) L 04/17/23 19:49 Est Cr Clr Drug Dosing 74.4 ml/min 04/17/23 19:49 Est GFR ( Amer) 109.7 ml/min 04/17/23 19:49 Est GFR (Non-Af Amer) 94.6 ml/min 04/17/23 19:49 BUN/Creatinine Ratio 40.4 (10-20) H 04/17/23 19:49 Glucose 103 mg/dl (70-99(Fasting)) H 04/17/23 19:49 Calcium 9.0 mg/dl (8.6-10.3) 04/17/23 19:49 Magnesium 2.0 mg/dl (1.7-2.4) 04/17/23 19:49 Total Bilirubin 0.6 mg/dl (0.2-1.0) 04/17/23 19:49 AST 12 U/L (13-39) L 04/17/23 19:49 ALT 7 U/L (7-52) 04/17/23 19:49 Alkaline Phosphatase 85 U/L (34-104) 04/17/23 19:49 Troponin I High Sens 6.1 pg/ml (0-14) 04/17/23 19:49 B-Natriuretic Peptide 209 pg/ml (0-100) H 04/17/23 19:49 Total Protein 6.6 gm/dl (6.0-8.3) 04/17/23 19:49 Albumin 4.0 gm/dl (3.4-5.0) 04/17/23 19:49 Globulin 2.6 gm/dl (2.5-4.0) 04/17/23 19:49 Albumin/Globulin Ratio 1.5 (0.9-2) 04/17/23 19:49 Urine Color Yellow 04/17/23 19:52 Urine Appearance Turbid (Clear) A 04/17/23 19:52 Urine pH 8.5 (4.5-7.5) H 04/17/23 19:52 Ur Specific [place] 1.023 (1.000-1.030) 04/17/23 19:52 Urine Protein 1+ (Negative) H 04/17/23 19:52 Urine Glucose (UA) Negative (Negative) 04/17/23 19:52 Urine Ketones Negative (Negative) 04/17/23 19:52 Urine Blood Negative (Negative) 04/17/23 19:52 Urine Nitrite Negative (Negative) 04/17/23 19:52 Urine Bilirubin Negative (Negative) 04/17/23 19:52 Urine Urobilinogen Negative (Negative) 04/17/23 19:52 Ur Leukocyte Esterase Negative (Negative) 04/17/23 19:52 Urine WBC (Auto) 1-5 /hpf (0-5) 04/17/23 19:52 Urine RBC (Auto) 5-10 /hpf (0-4) H 04/17/23 19:52 U Hyaline Cast (Auto) 0 /lpf (0-5) 04/17/23 19:52 U Epithel Cells (Auto) 20-30 /lpf (0-5) H 04/17/23 19:52 Urine Bacteria (Auto) 2+ (Negative) H 04/17/23 19:52 ECG Additional Comments: ECG. Normal sinus rhythm resolved 72. No acute ST changes seen. Code Status & VTE Plan VTE Prophylaxis Plan VTE Prophylaxis will be ordered: Yes
[2023-04-18] MEDS ORDERED: BUTALBITAL/ACETAMIN/CAFFEINE TAB PO PRN (03:47)
[2023-04-18] MEDS ORDERED: POLYETHYLENE (MIRALAX) 17 GM PACK PO PRN (03:47)
[2023-04-18] MEDS ORDERED: PROMETHAZINE HCL 25 MG TAB PO PRN (03:47)
[2023-04-18] MEDS ORDERED: RIZATRIPTAN BENZOATE 10 MG TAB PO PRN (03:47)
[2023-04-18] MEDS ORDERED: NITROGLYCERIN SL 0.4 MG/TAB TAB SL PRN ×2 (03:47)
[2023-04-18] MEDS: cefTRIAXone SODIUM 1,000 MG in DEXTROSE 5 % MINI-B 50 ML IV SCH (04:59)
[2023-04-18] MEDS: HYDROCODONE/ACETAMOPHEN 5/325MG TAB PO PRN ×4 (06:10→18:28)
--- NOTE | 2023-04-18 06:52 | XRay Report ---
XR chest 1V not portable HISTORY: 77 years-old Female Chest pain, nonspecific acute chest pain COMPARISON: 03/29/2023 TECHNIQUE: AP view of the chest FINDINGS: The cardiac silhouette is enlarged. Chronic interstitial coarsening without pneumothorax, pleural eff usion or airspace consolidation. No overt pulmonary edema. Healed chronic right-sided rib fractures. Extensive spinal fusion hardware is partially imaged. IMPRESSION: Cardiomegaly without acute process of the chest. ACT 112: Negative or not required by law. The above report was generated using voice recognition software. It may contain grammatical, syntax o r spelling errors. Electronically signed by: Phoenix Naidu M.D. 04/18/2023 6:51 AM
[2023-04-18 07:12] LABS: Basophils # (auto) 0.06 K/uL (0.00-0.20); Basophils % (auto) 0.8 %; Eosinophils # (auto) 0.07 K/uL (0.00-0.50); Hematocrit (blood only) 43.1 % (37.0-47.0); Hemoglobin 14.1 g/dl (12.0-16.0); Immature Granulocytes # (auto) 0.02 K/uL (0.01-0.20); Immature Granulocytes % (auto) 0.3 %; Lymphocytes % (auto) 20.9 %; Mean Corpuscular Hemoglobin 32.4 pg (25.0-34.0); Mean Corpuscular Hgb Conc 32.7 g/dL (32.0-36.0); Mean Corpuscular Volume 99.1 fL (80.0-100.0); Monocytes # (auto) 0.64 K/uL (0.11-0.59); Monocytes % (auto) 8.9 %; Neutrophils # (auto) 4.87 K/uL (1.40-6.50); Neutrophils % (auto) 68.1 %; Platelet Count 157 K/uL (130-400); RDW Coefficient of Variation 14.7 % (11.5-14.5); RDW Standard Deviation 54.4 fL (36.4-46.3); Red Blood Count 4.35 M/uL (4.20-5.40); White Blood Count 7.16 K/ul (4.8-10.8)
[2023-04-18 07:17] LABS: BUN Creatinine Ratio 31.7 (10-20); Calcium 8.4 mg/dl (8.6-10.3); Creatinine Clr Calc Pharmacy 72.8 ml/min; Est GFR (African American) 114.7 ml/min; Magnesium 1.9 mg/dl (1.7-2.4); Potassium 3.3 mmol/L (3.5-5.1)
[2023-04-18 07:23] LABS: Troponin I High Sensitivity 7.3 pg/ml (0-14)
[2023-04-18 07:30] LABS: INR 1.5 (0.9-1.1); Prothrombin Time 16.1 Seconds (9.0-12.0)
--- NOTE | 2023-04-18 07:53 | Electrocardiogram Report ---
Test Reason : Blood Pressure : / mmHG Vent. Rate : 072 BPM Atrial Rate : 072 BPM P-R Int : 112 ms QRS Dur : 072 ms QT Int : 356 ms P-R-T Axes : 049 -24 072 degrees QTc Int : 389 ms Normal sinus rhythm Low voltage QRS Cannot rule out Anterior infarct (cited on or before 31-MAR-2023) Abnormal ECG When compared with ECG of 01-APR-2023 00:09, Vent. rate has increased BY 33 BPM Confirmed by Nirav Mckeon ([id number]) on 04/18/2023 7:52:51 AM Referred By: REFERRED SELF Confirmed By:Shakeel Mckeon
[2023-04-18] MEDS: METOPROLOL SUCC 25MG EXT REL TAB PO SCH (08:25)
[2023-04-18] MEDS: NITROGLYCERIN 0.4 MG/HR PATCH TD SCH (08:25)
[2023-04-18] MEDS: FUROSEMIDE 40 MG/4 ML VIAL IV SCH ×2 (08:26→15:59)
[2023-04-18] MEDS: busPIRone 5 MG TAB PO SCH ×2 (08:26→19:48)
[2023-04-18] MEDS: MULTIVITAMIN TAB PO SCH (08:26)
[2023-04-18] MEDS: ATORVASTATIN 10 MG TAB PO SCH (08:26)
[2023-04-18] MEDS: CALCIUM 600MG + VIT D 400 IU TAB PO SCH (08:26)
[2023-04-18] MEDS ORDERED: POTASSIUM CHLORIDE CRTAB 20 MEQ TABCR PO SCH (09:00)
[2023-04-18] MEDS: ACETAMINOPHEN 325 MG TAB PO PRN (09:20)
--- NOTE | 2023-04-18 09:55 | Communication Note ---
Date of Service: April 18, 2023 Patient seen and examined at bedside. She is sleeping comfortably; awake evaluate voice. She reports that she is feeling much better. Urine output of over 3 L since admission. On physical examination; Constitutional: Alert oriented x 3; not in any distress. Respiratory: n bilateral vesicular breath sounds Cardiovascular: RRR, no murmur, no edema Vessels: no JVD or carotid bruit Chest: normal inspection of chest Abdomen: normal bowel sounds, soft, nontender, no hepatosplenomegaly Musculoskeletal: no cyanosis or clubbing, extremities motor strength 5/5. 1+ pitting edema Skin: no rashes, warm and dry normal turgor Neurologic: PERRL, EOMI, accommodation nl, no face palsy, no dysarthria CN's II- XI intact bilaterally and moves all extremities Psychiatric: A+Ox3, euthymic affect Assessment/plan acute on chronic diastolic heart failurecontinue on IV diuretics. At home she is on Lasix 20 mg 5 times a week, spironolactone 3 times a week. Might need up titration of the diuretics. Chest painrecent left heart cath in February showed nonobstructive CAD. Patient was discharged on Nitropatch which she ran out of. Possible UTIcontinue on antibiotic. Will follow-up on cultures.
--- NOTE | 2023-04-18 13:43 | Cardiology Consultation ---
Date of Consultation April 18, 2023 Assessment & Plan (1) Acute diastolic (congestive) heart failure: (2) Valvular heart disease: (3) Paroxysmal atrial fibrillation: -Sinus rhythm noted on telemetry. She did have a brief episode of irregular rhythm during her echocardiogram which may have been a brief run of nonsustained atrial fibrillation. Heart today is 1.5. Recommend ongoing Coumadin therapy for goal INR 2-3 without bridge therapy given her past admission with concerns of GI blood loss at that time. Continue furosemide 40 mg twice daily. High-sensitivity troponin levels have been negative on a serial basis, and she did have a recent cardiac catheterization 2 months ago for evaluation of similar chest discomfort. Continue conservative treatment for mitral regurgitation as she is not felt to be a good candidate for prevention and ongoing medical therapy is felt to be the best treatment for her. Continue topical nitroglycerin patch. As noted, at least some of her chest pains have been felt to be related to her chronic back pain syndrome. Potassium level is 3.3 this morning and she received 20 mill colons of oral supplementation. Will increase the dose of potassium chloride to 20 mg twice daily. As an outpatient she is on furosemide 20 mg 5 days/week, this may need to be increased at discharge. History of Present Illness Attending Physician: Abelardo Sheridan MD History of Present Illness Alexia Campos is a 77 year old female seen in cardiology consultation per the request of Dr Gann for the evaluation of chest discomfort, shortness of breath and lower extremity edema. Patient is 3 days of worsening lower extremity edema, chest pressure. She had missed several doses of her nitroglycerin patch citing that she perhaps ran out of it, but I had just renewed this recently in her outpatient chart. The patient has received 2 doses of IV furosemide with interval improvement in her chest pressure, shortness of breath and her lower extreme edema is much improved. History includes: 1. Paroxysmal atrial fibrillation with acute hospitalization March 04, 2022 with rapid response (1st onset). Chads Vasc 2 score 4 Repeat ER visit May 15, 2022 or with atrial fibrillation with rapid response with spontaneous conversion 2. Hypertension 3. Moderate to severe mitral regurgitation 4. Chronic tobacco use/chronic obstructive lung disease 5. CP with equivocal nuclear stress test in November 2022 - Normal imaging, with equivocal EKG changes during stress testing. mild chest pain with Lexiscan. Medical management preferred by patient. Preserved EF by echo 6. Recurrent assessment for chest discomfort during admission February, cardiac catheterization revealing nonobstructive CAD would not explain the patient's chest symptoms and ongoing medical management recommended. Summary of cardiac catheterization performed 03/02/23: 1. Multivessel moderate coronary artery disease -50% ostial, 40-50% distal RCA (nonobstructive by IFR) -50% mid circumflex. Lateral branch of OM 2 with 70% stenosis 35% ostial, 40% mid LAD. Medium D2 40% ostial -Normal intracardiac filling pressure Allergies Allergy/AdvReac Type Severity Reaction Status Date / Time chlorhexidine Allergy Intermediate Rash Verified 03/31/23 21:37 hydrochlorothiazide AdvReac Severe Pancreatiti Verified 03/31/23 21:37 s fluconazole [From Diflucan] AdvReac Intermediate Diarrhea Verified 03/31/23 21:37 (with oral) ondansetron [From Zofran] AdvReac Intermediate Headaches Verified 03/31/23 21:37 Home Medications Medication Instructions Recorded Confirmed Type multivitamin 1 tab PO QAM 02/05/20 04/17/23 History omeprazole 20 mg tablet,delayed 20 mg PO QPM 01/20/22 04/17/23 History release rizatriptan 10 mg tablet 10 mg PO UD PRN Migraine Headache 01/20/22 04/17/23 History trazodone 100 mg tablet 200 mg PO HS 01/20/22 04/17/23 History promethazine 12.5 mg tablet 12.5 mg PO Q6H PRN Nausea 06/08/22 04/17/23 History atorvastatin 10 mg tablet 10 mg PO QAM #30 tabs 11/10/22 04/17/23 Rx Hydromorphone Pain Pump 0 mg INJ DIRECTED 01/31/23 04/17/23 History umvoyduatl-gsuhriyytikvx-jqtwvgst 1 tab PO TID PRN Migraine Headache 01/31/23 04/17/23 History 50 mg-325 mg-40 mg tablet calcium carbonate 600 mg-vitamin 1 tab PO DAILY 01/31/23 04/17/23 History D3 10 mcg (400 unit) tablet (Calcium 600 + D(3)) furosemide 20 mg tablet (Lasix) 20 mg PO [id number] 01/31/23 04/17/23 History metoprolol succinate 25 mg 25 mg PO QAM 01/31/23 04/17/23 History tablet,extended release 24 hr spironolactone 25 mg tablet 25 mg PO 3XWK 01/31/23 04/17/23 History buspirone 5 mg tablet 5 mg PO BID 02/10/23 04/17/23 History nitroglycerin 0.4 mg sublingual 0.4 mg sublingual Q5M PRN chest 02/18/23 04/17/23 Rx tablet pain #30 tabs nitroglycerin 0.4 mg/hr 1 patch transdermal QAM #30 ea 03/03/23 04/17/23 Rx transdermal 24 hour patch (Nitro-Dur) hydrocodone 5 mg-acetaminophen 325 1 - 2 tab PO Q4H PAIN 03/31/23 04/17/23 History mg tablet warfarin 5 mg tablet See Rx Instructions .Route .COMPLEX 03/31/23 04/17/23 History potassium chloride 20 mEq 20 meq PO QAM 04/17/23 04/17/23 History tablet,extended release(part/cryst) (Jesús Meyer) Patient History Medical History HLD (hyperlipidemia) HTN (hypertension) CAD (coronary artery disease) Encounter for pre-operative examination Opiate dependence Atrial fibrillation Gastritis "Getting under control" Depression MVP (mitral valve prolapse) Not noted on 03/2016 echo (Mild MR was present) Recurrent UTI Fracture, tibia, with fibula History of syncope Previously followed with cardiology, per Dr Lockhart ([facility]), "syncope in the setting of polypharmacy for severe low back pain." Last seen by cardio 11/2018, to follow up PRN per cardio. History of blood transfusion Pt reports post-op after hip surgery and lumbar surgery Migraine Postlaminectomy syndrome of lumbosacral region Postlaminectomy syndrome of thoracic region Pancreatitis Approximately 2018 Hiatal hernia Gastric ulcer GERD (gastroesophageal reflux disease) Surgical History History of hip surgery Right hip History of anesthesia reaction "severe hypotension" per patient following second back surgery. ([facility] 2017). Review of records shows documentation from anesthesia that hypotension was treated in PACU, BP in post-anesthetic evaluation 92/51. Subsequent intrathecal pain pump (03/19/20): Grade view 1, MAC#3, ETT 6.5 at [facility] without issue noted per post-op anesthesia progress note/discharge summary. History of cholecystectomy History of open reduction and internal fixation (ORIF) procedure Left hip S/P hardware removal Left hip x2 History of dilatation and curettage S/P CECILIA-BSO History of colonoscopy History of esophagogastroduodenoscopy (EGD) History of cataract surgery R/L History of cardiac cath Approximately 1994 > no stents H/O spinal fusion Extensive [id number] (x2 lumbar fusions) History of appendectomy Family History Mother Family history of diabetes mellitus Grandmother (Maternal) Family history of diabetes mellitus Grandmother (Paternal) Family history of diabetes mellitus Other No family history of adverse response to anesthesia Social History Smoking Status: Current every day smoker Tobacco Type: Cigarettes packs per day: 0.5; Cigarettes Per Day: 10; Second Hand Exposure: No; Do You Dip or Chew Tobacco: No; Hx Alcohol Use: No Hx Substance Use: No Preferred Language: Azerbaijani Communication Ability: Effective Visual Impairment: No Limitations Hearing Ability: Normal 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: No Beliefs That Will Affect Care: None marital status: Current Living Situation: Spouse Current Living Situation Comment: Andre current occupational status: retired Feels Safe at Home: Yes Safety Concerns: Feels Safe At This Time Assistive Devices: Denture - Upper, Glasses and Walker Assistive Devices Comment: Reading glasses, upper dentures, and walker at home Review of Systems Review of Systems: All systems reviewed & are unremarkable except as noted in HPI & below Physical Exam Constitutional: WD/WN, vitals as above Eyes: PERRL, conjunctivae normal, anicteric sclerae Respiratory: Auscultation: + diminished lung sounds (Mildly decreased breath sounds at the bases); no crackles and no rales Cardiovascular: Heart Sounds: normal S1, normal S2 and + murmur (2/6 SM) Gastrointestinal (Abdomen): normal bowel sounds, soft, nontender, no hepatosplenomegaly Musculoskeletal: Significant kyphoscoliosis with chronic skin wound mid back that is dressed. Neurologic: PERRL, EOMI, accommodation nl, no face palsy, no dysarthria Results & Data Vital Signs (Past 12 Hours) Vital Signs Temp Pulse Pulse Resp BP BP Pulse Ox 04/18/23 12:03 36.7 C 60 18 102/64 90 04/18/23 08:28 81 04/18/23 08:01 36.5 C 59 L 18 109/68 91 04/18/23 07:32 56 L 04/18/23 04:45 36.4 C L 76 18 153/88 H 96 04/18/23 04:00 56 L 17 97/59 L 94 04/18/23 03:00 58 L 16 132/92 100 04/18/23 02:55 61 O2 Del Method 04/18/23 12:03 Room Air 04/18/23 08:28 04/18/23 08:01 Room Air 04/18/23 07:32 04/18/23 04:45 Room Air 04/18/23 04:00 Room Air 04/18/23 03:00 Room Air 04/18/23 02:55 Laboratory Results Cardiac Enzymes 04/17/23 04/18/23 04/18/23 Range/Units 19:49 06:42 10:44 AST 12 L (13-39) U/L Troponin I High Sens 6.1 7.3 6.4 (0-14) pg/ml B-Natriuretic Peptide 209 H (0-100) pg/ml Coagulation 04/17/23 04/18/23 Range/Units 19:49 06:42 PT 18.8 H 16.1 H (9.0-12.0) Seconds APTT 41 H (21-31) Seconds B-Natriuretic Peptide 209 H (0-100) pg/ml CBC 04/17/23 04/18/23 Range/Units 19:49 06:42 WBC 8.95 7.16 (4.8-10.8) K/ul RBC 5.09 4.35 (4.20-5.40) M/uL Hgb 16.7 H 14.1 (12.0-16.0) g/dl Hct 50.6 H 43.1 (37.0-47.0) % Plt Count 175 157 (130-400) K/uL Neut # (Auto) 7.00 H 4.87 (1.40-6.50) K/uL Lymph # (Auto) 1.26 1.50 (1.20-3.40) K/uL [place] # (Auto) 0.55 0.64 H (0.11-0.59) K/uL Eos # (Auto) 0.06 0.07 (0.00-0.50) K/uL Baso # (Auto) 0.05 0.06 (0.00-0.20) K/uL Comprehensive Metabolic Panel 04/17/23 04/18/23 Range/Units 19:49 06:42 Sodium 137 139 (136-145) mmol/L Potassium 3.8 3.3 L (3.5-5.1) mmol/L Chloride 101 101 (98-107) mmol/L Carbon Dioxide 30 35 H (21-32) mmol/L BUN 19 13 (6-23) mg/dl Creatinine 0.47 L 0.41 L (0.6-1.2) mg/dl Glucose 103 H 94 (70-99(Fasting)) mg/dl Calcium 9.0 8.4 L (8.6-10.3) mg/dl AST 12 L (13-39) U/L ALT 7 (7-52) U/L Alkaline Phosphatase 85 (34-104) U/L Total Protein 6.6 (6.0-8.3) gm/dl Albumin 4.0 (3.4-5.0) gm/dl Intake and Output 04/17/23 04/18/23 04/18/23 22:59 06:59 14:59 Intake Total 50 / 50 Output Total 2300 / 3100 800 / 3100 850 / 850 Balance -2300 / -3050 -750 / -3050 -850 / -850 Intake: IV 50 / 50 cefTRIAXone SODIUM 1,000 mg In 50 / 50 Dextrose 5 % Mini-B 50 ml @ 100 mls/hr IV Q24H [facility] Rx#: [id number] Output: Urine Amount (Catheter) 2300 / 3100 800 / 3100 850 / 850 Meléndez/Indwelling 2300 / 3100 800 / 3100 850 / 850 Other: Weight 48.2 kg 40.8 kg Weight Measurement Method [facility] Diagnostic Findings EKG performed 04/17/2023: Sinus rhythm at 72 bpm, poor R wave progression in the anterior precordial leads, nonspecific diffuse T wave flattening, relatively unchanged compared Diagram performed 04/18/2023: Mild concentric left ventricular hypertrophy, no left ventricular regional wall motion abnormalities, LVEF in the range of 60 to 65%, with moderate left atrial lodgment, moderate to severe mitral regurgitation present with an eccentric posteriorly directed jet, mitral regurgitation limited to early systole, pulm artery systolic pressure mildly elevated 43 mmHg
[2023-04-18] MEDS: POTASSIUM CHLORIDE CRTAB 20 MEQ TABCR PO SCH (14:29)
[2023-04-18] MEDS ORDERED: WARFARIN SOD 2.5 MG TAB PO SCH (16:00)
[2023-04-18] MEDS: PANTOprazole 40 MG TAB PO SCH (19:48)
[2023-04-18] MEDS: traZODone HCL 100 MG TAB PO SCH (19:48)
[2023-04-19] MEDS: HYDROCODONE/ACETAMOPHEN 5/325MG TAB PO PRN ×4 (02:01→19:51)
[2023-04-19] MEDS: cefTRIAXone SODIUM 1,000 MG in DEXTROSE 5 % MINI-B 50 ML IV SCH (05:15)
[2023-04-19] MEDS: NITROGLYCERIN 0.4 MG/HR PATCH TD SCH (05:16)
--- NOTE | 2023-04-19 07:26 | Cardiology Progress Note ---
Date of Service April 19, 2023 Assessment & Plan (1) Acute diastolic (congestive) heart failure: (2) Valvular heart disease: (3) Paroxysmal atrial fibrillation: Admission and Anticipated Discharge Date Admission Date: April 18, 2023 Supervising Physician Co-Signing Physician Notes 77 yo woman presenting with LE edema Dx: - Acute on chronic diastolic heart failure (HFpEF) - Afib on chronic systemic anticoagulation -Moderate to Severe MR -CAD - subcritical -Active Smoker Acute on chronic diastolic heart failure * Patient appears close to euvolemic state * JVP at base of Neck * On RA * STOP IV Lasix * Start Lasix 60 mg po per day * Goal is net negative -1.0 liters per day * Weigth QAM * Zachariah Hose to bilateral legs * K+ goal 4.5-5 * Kdur 40 meq po BID on 04/19/2023 * Continue Aldactone 25 mg po per day * Mag goal >2 * Pt in NSR * Coumadin started - INR goal 2-3; currently 1.4 * Mild concentric LVH; no hx of carpal tunnel - + Lumbago * Stop Nitropatch * Start Imdur 30 mg po per day * LDL 33 * Continue Lipitor 10 mg po per day * PT/OT * + Chest pain while I was in the room. Significant Anxiety. Plans for 12-lead EKG check Arslan Albright Subjective ID: 77 yo woman presenting with acute on chronic HFpEF Diuresing LVEF 60-65% Moderate to severe MR + Afib Events Overnight: None reported Subjective: * Occasional Chest pain * Breathing improved - feels that she is back to near normal Review of Systems Review of Systems: All systems reviewed & are unremarkable except as noted in HPI & below Physical Exam Physical Exam: thin JVP @ base of neck S1S2, 2/6 systolic murmur CTA B No Abdominal Wall Edema Trace LE edema Results & Data Vital Signs (Past 12 Hours) Vital Signs Temp Pulse Pulse Resp BP BP Pulse Ox 04/19/23 03:06 36.8 C 60 20 126/77 94 04/18/23 23:21 36.9 C 60 18 89/65 L 91 04/18/23 22:00 48 L 04/18/23 20:00 36.5 C 54 L 18 120/71 93 O2 Del Method 04/19/23 03:06 Room Air 04/18/23 23:21 Room Air 04/18/23 22:00 04/18/23 20:00 Room Air Laboratory Results = Cardiac Enzymes 04/18/23 Range/Units 17:20 Troponin I High Sens 7.3 (0-14) pg/ml Coagulation 04/19/23 Range/Units 06:46 PT 15.5 H (9.0-12.0) Seconds Comprehensive Metabolic Panel 04/19/23 Range/Units 06:46 Sodium 136 (136-145) mmol/L Potassium 4.0 D (3.5-5.1) mmol/L Chloride 97 L (98-107) mmol/L Carbon Dioxide 35 H (21-32) mmol/L BUN 19 (6-23) mg/dl Creatinine 0.68 (0.6-1.2) mg/dl Glucose 105 H (70-99(Fasting)) mg/dl Calcium 9.0 (8.6-10.3) mg/dl Intake and Output 04/18/23 04/19/23 04/19/23 22:59 06:59 14:59 Intake Total 236 / 506 150 / 506 Output Total 1252 / 2352 250 / 2352 Balance -1016 / -1846 -100 / -1846 Intake: IV 50 / 50 cefTRIAXone SODIUM 1,000 mg In 50 / 50 Dextrose 5 % Mini-B 50 ml @ 100 mls/hr IV Q24H [facility] Rx#: [id number] Oral 100 / 220 Other 236 / 236 Output: Urine Amount (Catheter) 1250 / 2350 250 / 2350 Meléndez/Indwelling 1250 / 2350 250 / 2350 # Bowel Movements 2 / 2 Other: Other Intake Source sips Weight 40.3 kg Weight Measurement Method Built in [facility] Medications Administered Current Inpatient Medications Acetaminophen (Acetaminophen 325 Mg Tab) 650 mg PO Q4H PRN PRN Reason: Pain or Fever Stop: 05/18/23 03:46 Last Admin: 04/18/23 09:20 Dose: 650 mg Acetaminophen/Butalbital/Caffeine (Butalbital/Acetamin/Caffeine Tab) 1 tab PO TID PRN PRN Reason: Migraine Headache Stop: 05/18/23 03:46 Hydrocodone Bitart/Acetaminophen (Hydrocodone/Acetamophen 5/325mg Tab) 1 - 2 tab PO Q4H PRN PRN Reason: Pain Stop: 05/02/23 03:46 Last Admin: 04/19/23 02:01 Dose: 2 tab Atorvastatin Calcium (Atorvastatin 10 Mg Tab) 10 mg PO [facility] Stop: 05/18/23 08:59 Last Admin: 04/18/23 08:26 Dose: 10 mg Buspirone HCl (Buspirone 5 Mg Tab) 5 mg PO BID [facility] Stop: 05/18/23 08:59 Last Admin: 04/18/23 19:48 Dose: 5 mg Calcium/Vitamin D (Calcium 600mg + Vit D 400 Iu Tab) 1 tab PO DAILY [facility] Stop: 05/18/23 08:59 Last Admin: 04/18/23 08:26 Dose: 1 tab Furosemide (Furosemide 40 Mg/4 Ml Vial) 40 mg IV [id number] [facility] Stop: 05/18/23 08:59 Last Admin: 04/18/23 15:59 Dose: 40 mg Ceftriaxone Sodium 1,000 mg/ (Dextrose) 50 mls @ 100 mls/hr IV Q24H [facility]; Protocol Stop: 04/28/23 04:59 Last Infusion: 04/19/23 05:45 Dose: Infused Metoprolol Succinate (Metoprolol Succ 25mg Ext Rel Tab) 25 mg PO [facility] Stop: 05/18/23 08:59 Last Admin: 04/18/23 08:25 Dose: 25 mg Miscellaneous (Remove Nitro-Dur Patch) 1 each N/A DAILY@2100 [facility] Stop: 05/18/23 20:59 Last Admin: 04/18/23 19:49 Dose: Not Given Multivitamins (Multivitamin Tab) 1 tab PO [facility] Stop: 05/18/23 08:59 Last Admin: 04/18/23 08:26 Dose: 1 tab Nitroglycerin (Nitroglycerin Sl 0.4 Mg/Tab Tab) 0.4 mg SL Q5M PRN PRN Reason: Chest Pain Stop: 05/18/23 03:46 Nitroglycerin (Nitroglycerin 0.4 Mg/Hr Patch) 1 patch TD [facility] Stop: 05/18/23 08:59 Last Admin: 04/19/23 05:16 Dose: 1 patch Pantoprazole Sodium (Pantoprazole 40 Mg Tab) 40 mg PO QPM [facility] Stop: 05/18/23 20:59 Last Admin: 04/18/23 19:48 Dose: 40 mg Polyethylene Glycol (Polyethylene (Miralax) 17 Gm Pack) 17 gm PO DAILY PRN PRN Reason: Constipation Stop: 05/18/23 03:46 Last Admin: 04/18/23 18:11 Dose: 17 gm Potassium Chloride (Potassium Chloride Crtab 20 Meq Tabcr) 20 meq PO [id number] [facility] Stop: 05/18/23 13:59 Last Admin: 04/18/23 14:29 Dose: 20 meq Promethazine HCl (Promethazine Hcl 25 Mg Tab) 12.5 mg PO Q6H PRN PRN Reason: Nausea Stop: 05/18/23 03:46 Rizatriptan Benzoate (Rizatriptan Benzoate 10 Mg Tab) 10 mg PO DAILY PRN PRN Reason: Migraine Headache Stop: 05/18/23 03:46 Spironolactone (Spironolactone 25 Mg Tab) 25 mg PO [id number] [facility] Stop: 05/19/23 08:59 Trazodone HCl (Trazodone Hcl 100 Mg Tab) 200 mg PO HS [facility] Stop: 05/18/23 20:59 Last Admin: 04/18/23 19:48 Dose: 200 mg Warfarin Sodium (Warfarin Sod 2.5 Mg Tab) 2.5 mg PO [id number] [facility] Stop: 05/18/23 15:59 Last Admin: 04/18/23 15:59 Dose: 2.5 mg
[2023-04-19 07:43] LABS: BUN Creatinine Ratio 27.9 (10-20); Creatinine Clr Calc Pharmacy 43.4 ml/min; Est GFR (African American) 97.1 ml/min; Est GFR (Non-African American) 83.8 ml/min
[2023-04-19 07:48] LABS: INR 1.4 (0.9-1.1); Prothrombin Time 15.5 Seconds (9.0-12.0)
[2023-04-19] MEDS: ATORVASTATIN 10 MG TAB PO SCH (08:51)
[2023-04-19] MEDS: METOPROLOL SUCC 25MG EXT REL TAB PO SCH (08:51)
[2023-04-19] MEDS: busPIRone 5 MG TAB PO SCH ×2 (08:51→19:52)
[2023-04-19] MEDS: CALCIUM 600MG + VIT D 400 IU TAB PO SCH (08:51)
[2023-04-19] MEDS: MULTIVITAMIN TAB PO SCH (08:52)
[2023-04-19] MEDS: POTASSIUM CHLORIDE CRTAB 20 MEQ TABCR PO SCH ×2 (08:56→13:09)
[2023-04-19] MEDS: FUROSEMIDE 40 MG/4 ML VIAL IV SCH (08:56)
[2023-04-19] MEDS ORDERED: SPIRONOLACTONE 25 MG TAB PO SCH (09:00)
--- NOTE | 2023-04-19 12:08 | Hospitalist Progress Note ---
Date of Service April 19, 2023 Assessment & Plan (1) Acute diastolic (congestive) heart failure: Plan: 77-year-old female with past med history significant for hyperlipidemia, paroxysmal atrial fibrillation, chronic heart failure with preserved ejection fraction, hypertension, nonrheumatic mitral valve regurgitation, GERD, bilateral low back pain, thrombocytopenia, tobacco use, presents with chest pain and lower extremity edema. Patient ran out of her nitro patches couple of days ago. Today morning she woke up with chest pain. And also she noticed increasing swelling significantly in the lower extremities last couple of days. Acute on chronic diastolic heart failure Presented from home with significant increase in lower extremity edema Echocardiogram during the hospitalization shows EF of 60 to 65%; moderate to severe systolic mitral regurgitation. EKG on admission personally reviewed; normal sinus rhythm; QTc of 389 Continue with IV Lasix 40 mg twice daily Monitor on telemetry floor Daily weights and I's and O's Atypical chest pain, ACS ruled out ran off Nitro patches EKG on admission personally reviewed; normal sinus rhythm; QTc of 389 High since her troponin negative Echocardiogram as above Nonobstructive CAD On cath on March 02, 2023 On statin and metoprolol and Coumadin History of paroxysmal atrial fibrillation On metoprolol and Coumadin Acute UTI Urinalysis suggestive of infection Urine culture positive for Klebsiella 3 days of ceftriaxone. Hypertension Continue on metoprolol, Nitropatch and diuretics Hyperlipidemia On statin Tobacco abuse Needs counseling Chronic back pain On pain pump Migraine On rizatriptan as needed Depression with anxiety Trazodone and buspirone DVT prophylaxis SCDs On Coumadin follow PT/INR Disposition: Patient hospitalized for acute on chronic diastolic heart failure on IV diuretics. Possible discharge home with PT OT versus rehab. PT evaluation is pending Full code Time spent evaluating patient, direct bedside care, chart review, placing orders, interpretation of diagnostic studies, discussion with consultants, patient, and family members, as well as other required patient management activities is 50 minutes Please note the above document was generated using voice recognition software. It may contain grammatical, syntax or spelling errors. Any formal questions or concerns about the content, text or information contained within the body of this dictation should be directly addressed to the provider for clarification Admission and Anticipated Discharge Date Admission Date: April 18, 2023 Subjective Patient seen and examined at bedside. She is comfortably sitting up on the bed; not in distress. She reports that her breathing has improved significantly. Review of Systems Review of Systems: All systems reviewed & are unremarkable except as noted in Subjective Physical Exam Physical Exam: General- Not in distress. Head- atraumatic Eyes- PERRL. ENT- oropharynx clear Neck- supple, no JVD Lungs-slightly decreased sound in bases Heart- regular rhythm; no murmur, no gallop. Abdomen- normal bowel sounds, soft, nontender, no distension. Extremities- b/l lower extremity gross edema present. no erythema seen. Neuro- alert, oriented x 3; PERRL, no facial palsy; no dysarthria; moves extremities. Skin- warm & dry Results & Data Results & Data Vital Signs (Past 12 Hours) Vital Signs Temp Pulse Pulse Resp BP BP Pulse Ox 04/19/23 11:55 16 92 04/19/23 11:10 04/19/23 10:18 36.5 C 67 20 105/67 92 04/19/23 08:12 36.5 C 646 H 16 112/57 L 91 04/19/23 08:10 52 L 04/19/23 03:06 36.8 C 60 20 126/77 94 O2 Del Method 04/19/23 11:55 Room Air 04/19/23 11:10 Room Air 04/19/23 10:18 Room Air 04/19/23 08:12 Room Air 04/19/23 08:10 04/19/23 03:06 Room Air Laboratory Results Laboratory Results WBC 7.16 K/ul (4.8-10.8) 04/18/23 06:42 RBC 4.35 M/uL (4.20-5.40) 04/18/23 06:42 Hgb 14.1 g/dl (12.0-16.0) 04/18/23 06:42 Hct 43.1 % (37.0-47.0) 04/18/23 06:42 MCV 99.1 fL (80.0-100.0) 04/18/23 06:42 MCH 32.4 pg (25.0-34.0) 04/18/23 06:42 MCHC 32.7 g/dL (32.0-36.0) 04/18/23 06:42 RDW Std Deviation 54.4 fL (36.4-46.3) H 04/18/23 06:42 RDW Coeff of Oliver 14.7 % (11.5-14.5) H 04/18/23 06:42 Plt Count 157 K/uL (130-400) 04/18/23 06:42 MPV 10.0 fL (9.4-12.4) 04/18/23 06:42 Immature Gran % (Auto) 0.3 % 04/18/23 06:42 Neut % (Auto) 68.1 % 04/18/23 06:42 Lymph % (Auto) 20.9 % 04/18/23 06:42 Price % (Auto) 8.9 % 04/18/23 06:42 Eos % (Auto) 1.0 % 04/18/23 06:42 Baso % (Auto) 0.8 % 04/18/23 06:42 Neut # (Auto) 4.87 K/uL (1.40-6.50) 04/18/23 06:42 Lymph # (Auto) 1.50 K/uL (1.20-3.40) 04/18/23 06:42 Price # (Auto) 0.64 K/uL (0.11-0.59) H 04/18/23 06:42 Eos # (Auto) 0.07 K/uL (0.00-0.50) 04/18/23 06:42 Baso # (Auto) 0.06 K/uL (0.00-0.20) 04/18/23 06:42 Immature Gran # (Auto) 0.02 K/uL (0.01-0.20) 04/18/23 06:42 PT 15.5 Seconds (9.0-12.0) H 04/19/23 06:46 INR 1.4 (0.9-1.1) H 04/19/23 06:46 APTT 41 Seconds (21-31) H 04/17/23 19:49 PTT Ratio 1.5 04/17/23 19:49 Sodium 136 mmol/L (136-145) 04/19/23 06:46 Potassium 4.0 mmol/L (3.5-5.1) D 04/19/23 06:46 Chloride 97 mmol/L (98-107) L 04/19/23 06:46 Carbon Dioxide 35 mmol/L (21-32) H 04/19/23 06:46 Anion Gap 4 (3-11) 04/19/23 06:46 BUN 19 mg/dl (6-23) 04/19/23 06:46 Creatinine 0.68 mg/dl (0.6-1.2) 04/19/23 06:46 Est Cr Clr Drug Dosing 43.4 ml/min 04/19/23 06:46 Est GFR ( Amer) 97.1 ml/min 04/19/23 06:46 Est GFR (Non-Af Amer) 83.8 ml/min 04/19/23 06:46 BUN/Creatinine Ratio 27.9 (10-20) H 04/19/23 06:46 Glucose 105 mg/dl (70-99(Fasting)) H 04/19/23 06:46 Calcium 9.0 mg/dl (8.6-10.3) 04/19/23 06:46 Magnesium 1.9 mg/dl (1.7-2.4) 04/18/23 06:42 Total Bilirubin 0.6 mg/dl (0.2-1.0) 04/17/23 19:49 AST 12 U/L (13-39) L 04/17/23 19:49 ALT 7 U/L (7-52) 04/17/23 19:49 Alkaline Phosphatase 85 U/L (34-104) 04/17/23 19:49 Troponin I High Sens 7.3 pg/ml (0-14) 04/18/23 17:20 B-Natriuretic Peptide 209 pg/ml (0-100) H 04/17/23 19:49 Total Protein 6.6 gm/dl (6.0-8.3) 04/17/23 19:49 Albumin 4.0 gm/dl (3.4-5.0) 04/17/23 19:49 Globulin 2.6 gm/dl (2.5-4.0) 04/17/23 19:49 Albumin/Globulin Ratio 1.5 (0.9-2) 04/17/23 19:49 Urine Color Yellow 04/17/23 19:52 Urine Appearance Turbid (Clear) A 04/17/23 19:52 Urine pH 8.5 (4.5-7.5) H 04/17/23 19:52 Ur Specific [place] 1.023 (1.000-1.030) 04/17/23 19:52 Urine Protein 1+ (Negative) H 04/17/23 19:52 Urine Glucose (UA) Negative (Negative) 04/17/23 19:52 Urine Ketones Negative (Negative) 04/17/23 19:52 Urine Blood Negative (Negative) 04/17/23 19:52 Urine Nitrite Negative (Negative) 04/17/23 19:52 Urine Bilirubin Negative (Negative) 04/17/23 19:52 Urine Urobilinogen Negative (Negative) 04/17/23 19:52 Ur Leukocyte Esterase Negative (Negative) 04/17/23 19:52 Urine WBC (Auto) 1-5 /hpf (0-5) 04/17/23 19:52 Urine RBC (Auto) 5-10 /hpf (0-4) H 04/17/23 19:52 U Hyaline Cast (Auto) 0 /lpf (0-5) 04/17/23 19:52 U Epithel Cells (Auto) 20-30 /lpf (0-5) H 04/17/23 19:52 Urine Bacteria (Auto) 2+ (Negative) H 04/17/23 19:52 Impressions Chest X-Ray 04/17/23 18:39 XR chest 1V not portable HISTORY: 77 years-old Female Chest pain, nonspecific acute chest pain COMPARISON: 03/29/2023 TECHNIQUE: AP view of the chest FINDINGS: The cardiac silhouette is enlarged. Chronic interstitial coarsening without pneumothorax, pleural effusion or airspace consolidation. No overt pulmonary edema. Healed chronic right-sided rib fractures. Extensive spinal fusion hardware is partially imaged. IMPRESSION: Cardiomegaly without acute process of the chest. ACT 112: Negative or not required by law. The above report was generated using voice recognition software. It may contain grammatical, syntax or spelling errors. Electronically signed by: Phoenix Naidu M.D. 04/18/2023 6:51 AM
[2023-04-19] MEDS: ISOSORBIDE MONO EXTENDED REL 30 MG TABCR PO SCH (17:04)
[2023-04-19] MEDS: ACETAMINOPHEN 325 MG TAB PO PRN (17:59)
--- NOTE | 2023-04-19 19:16 | Electrocardiogram Report ---
Test Reason : Blood Pressure : / mmHG Vent. Rate : 063 BPM Atrial Rate : 063 BPM P-R Int : 132 ms QRS Dur : 070 ms QT Int : 396 ms P-R-T Axes : 039 -16 040 degrees QTc Int : 405 ms Sinus rhythm with Premature atrial complexes Low voltage QRS Cannot rule out Anteroseptal infarct (cited on or before 31-MAR-2023) Abnormal ECG When compared with ECG of 17-APR-2023 18:44, Premature atrial complexes are now Present Confirmed by Juliano Wood ([id number]) on 04/19/2023 7:15:57 PM Referred By: REFERRED SELF Confirmed By:Juliano Wood
[2023-04-19] MEDS: PANTOprazole 40 MG TAB PO SCH (19:52)
[2023-04-19] MEDS: traZODone HCL 100 MG TAB PO SCH (19:53)
[2023-04-20] MEDS: cefTRIAXone SODIUM 1,000 MG in DEXTROSE 5 % MINI-B 50 ML IV SCH (04:25)
[2023-04-20 06:53] LABS: INR 1.1 (0.9-1.1)
[2023-04-20 07:17] LABS: BUN Creatinine Ratio 29.6 (10-20); Calcium 8.9 mg/dl (8.6-10.3); Creatinine Clr Calc Pharmacy 54.5 ml/min; Est GFR (African American) 104.8 ml/min; Est GFR (Non-African American) 90.4 ml/min; Potassium 4.2 mmol/L (3.5-5.1)
[2023-04-20] MEDS: busPIRone 5 MG TAB PO SCH (08:11)
[2023-04-20] MEDS: ATORVASTATIN 10 MG TAB PO SCH (08:11)
[2023-04-20] MEDS: CALCIUM 600MG + VIT D 400 IU TAB PO SCH (08:11)
[2023-04-20] MEDS: POTASSIUM CHLORIDE CRTAB 20 MEQ TABCR PO SCH (08:11)
[2023-04-20] MEDS: ISOSORBIDE MONO EXTENDED REL 30 MG TABCR PO SCH (08:12)
[2023-04-20] MEDS: MULTIVITAMIN TAB PO SCH (08:12)
[2023-04-20] MEDS: METOPROLOL SUCC 25MG EXT REL TAB PO SCH (08:12)
[2023-04-20] MEDS: HYDROCODONE/ACETAMOPHEN 5/325MG TAB PO PRN (08:13)
--- NOTE | 2023-04-20 08:26 | Cardiology Progress Note ---
Date of Service April 20, 2023 Assessment & Plan Admission and Anticipated Discharge Date Admission Date: April 18, 2023 Supervising Physician Co-Signing Physician Notes 77 yo woman presenting with LE edema Dx: - Acute on chronic diastolic heart failure (HFpEF) - Afib on chronic systemic anticoagulation -Moderate to Severe MR -CAD - subcritical -Active Smoker Acute on chronic diastolic heart failure * Patient appears close to euvolemic state * JVP at base of Neck * On RA * STOP IV Lasix * Start Lasix 60 mg po per day * Goal is net negative -1.0 liters per day * Weigth QAM * Zachariah Hose to bilateral legs * K+ goal 4.5-5 * Kdur 40 meq po BID on 04/19/2023 * Continue Aldactone 25 mg po per day * Mag goal >2 * Pt in NSR * Coumadin started - INR goal 2-3; currently 1.4 * Mild concentric LVH; no hx of carpal tunnel - + Lumbago * Stop Nitropatch * Start Imdur 30 mg po per day * LDL 33 * Continue Lipitor 10 mg po per day * PT/OT * + Chest pain while I was in the room. Significant Anxiety. Plans for 12-lead EKG check Arslan Albright Subjective Events overnight: Subjective: Physical Exam Physical Exam: thin JVP @ base of neck S1S2, 2/6 systolic murmur CTA B No Abdominal Wall Edema Trace LE edema Results & Data Vital Signs (Past 12 Hours) Vital Signs Temp Pulse Pulse Resp BP Pulse Ox O2 Del Method 04/20/23 07:31 36.3 C L 63 18 129/70 93 Room Air 04/20/23 02:45 36.5 C 67 18 108/70 94 Room Air 04/19/23 23:13 36.6 C 64 18 103/66 93 Room Air 04/19/23 22:05 66 Laboratory Results Coagulation 04/20/23 Range/Units 06:08 PT 12.0 (9.0-12.0) Seconds Comprehensive Metabolic Panel 04/20/23 Range/Units 06:08 Sodium 139 (136-145) mmol/L Potassium 4.2 (3.5-5.1) mmol/L Chloride 102 (98-107) mmol/L Carbon Dioxide 34 H (21-32) mmol/L BUN 16 (6-23) mg/dl Creatinine 0.54 L (0.6-1.2) mg/dl Glucose 94 (70-99(Fasting)) mg/dl Calcium 8.9 (8.6-10.3) mg/dl Intake and Output 04/19/23 04/20/23 04/20/23 22:59 06:59 14:59 Intake Total 455 / 605 150 / 605 Balance 455 / 605 150 / 605 Intake: IV 50 / 50 cefTRIAXone SODIUM 1,000 mg In 50 / 50 Dextrose 5 % Mini-B 50 ml @ 100 mls/hr IV Q24H [facility] Rx#: [id number] Oral 455 / 555 100 / 555 Other: # Unmeasured Voids 3 1 Weight 40.2 kg Medications Administered Current Inpatient Medications Acetaminophen (Acetaminophen 325 Mg Tab) 650 mg PO Q4H PRN PRN Reason: Pain or Fever Stop: 05/18/23 03:46 Last Admin: 04/19/23 17:59 Dose: 650 mg Acetaminophen/Butalbital/Caffeine (Butalbital/Acetamin/Caffeine Tab) 1 tab PO TID PRN PRN Reason: Migraine Headache Stop: 05/18/23 03:46 Hydrocodone Bitart/Acetaminophen (Hydrocodone/Acetamophen 5/325mg Tab) 1 - 2 tab PO Q4H PRN PRN Reason: Pain Stop: 05/02/23 03:46 Last Admin: 04/20/23 08:13 Dose: 2 tab Atorvastatin Calcium (Atorvastatin 10 Mg Tab) 10 mg PO QAM [facility] Stop: 05/18/23 08:59 Last Admin: 04/20/23 08:11 Dose: 10 mg Buspirone HCl (Buspirone 5 Mg Tab) 5 mg PO BID [facility] Stop: 05/18/23 08:59 Last Admin: 04/20/23 08:11 Dose: 5 mg Calcium/Vitamin D (Calcium 600mg + Vit D 400 Iu Tab) 1 tab PO DAILY [facility] Stop: 05/18/23 08:59 Last Admin: 04/20/23 08:11 Dose: 1 tab Furosemide (Furosemide 20 Mg Tab) 60 mg PO QAM [facility] Stop: 05/20/23 08:59 Last Admin: 04/20/23 08:12 Dose: 60 mg Ceftriaxone Sodium 1,000 mg/ (Dextrose) 50 mls @ 100 mls/hr IV Q24H [facility]; Protocol Stop: 04/28/23 04:59 Last Infusion: 04/20/23 04:55 Dose: Infused Isosorbide Mononitrate (Isosorbide [place] Extended Rel 30 Mg Tabcr) 30 mg PO QAM [facility] Stop: 05/19/23 16:14 Last Admin: 04/20/23 08:12 Dose: 30 mg Metoprolol Succinate (Metoprolol Succ 25mg Ext Rel Tab) 25 mg PO QAM [facility] Stop: 05/18/23 08:59 Last Admin: 04/20/23 08:12 Dose: 25 mg Multivitamins (Multivitamin Tab) 1 tab PO QAM [facility] Stop: 05/18/23 08:59 Last Admin: 04/20/23 08:12 Dose: 1 tab Nitroglycerin (Nitroglycerin Sl 0.4 Mg/Tab Tab) 0.4 mg SL Q5M PRN PRN Reason: Chest Pain Stop: 05/18/23 03:46 Pantoprazole Sodium (Pantoprazole 40 Mg Tab) 40 mg PO QPM [facility] Stop: 05/18/23 20:59 Last Admin: 04/19/23 19:52 Dose: 40 mg Polyethylene Glycol (Polyethylene (Miralax) 17 Gm Pack) 17 gm PO DAILY PRN PRN Reason: Constipation Stop: 05/18/23 03:46 Last Admin: 04/18/23 18:11 Dose: 17 gm Potassium Chloride (Potassium Chloride Crtab 20 Meq Tabcr) 20 meq PO [id number] [facility] Stop: 05/18/23 13:59 Last Admin: 04/20/23 08:11 Dose: 20 meq Promethazine HCl (Promethazine Hcl 25 Mg Tab) 12.5 mg PO Q6H PRN PRN Reason: Nausea Stop: 05/18/23 03:46 Last Admin: 04/19/23 19:51 Dose: 12.5 mg Rizatriptan Benzoate (Rizatriptan Benzoate 10 Mg Tab) 10 mg PO DAILY PRN PRN Reason: Migraine Headache Stop: 05/18/23 03:46 Spironolactone (Spironolactone 25 Mg Tab) 25 mg PO MoWeFr@0900 [facility] Stop: 05/19/23 08:59 Last Admin: 04/19/23 08:52 Dose: 25 mg Trazodone HCl (Trazodone Hcl 100 Mg Tab) 200 mg PO HS [facility] Stop: 05/18/23 20:59 Last Admin: 04/19/23 19:53 Dose: 200 mg Warfarin Sodium (Warfarin Sod 5 Mg Tab) 5 mg PO DAILY@1600 [facility] Stop: 05/20/23 15:59
--- NOTE | 2023-04-20 08:56 | Electrocardiogram Report ---
Test Reason : Blood Pressure : / mmHG Vent. Rate : 055 BPM Atrial Rate : 055 BPM P-R Int : 144 ms QRS Dur : 068 ms QT Int : 564 ms P-R-T Axes : 038 -08 076 degrees QTc Int : 539 ms Sinus bradycardia Low voltage QRS Old Anteroseptal infarct (cited on or before 31-MAR-2023) Abnormal ECG When compared with ECG of 19-APR-2023 13:51, Premature atrial complexes are no longer Present Confirmed by Siddharth Loco ([id number]) on 04/20/2023 8:55:56 AM Referred By: REFERRED SELF Confirmed By:Siddharth Loco
[2023-04-20] MEDS ORDERED: FUROSEMIDE 20 MG TAB PO SCH (09:00)
--- NOTE | 2023-04-20 12:58 | Discharge Summary ---
Date of Service April 20, 2023 Admission HPI Per Admitting Provider 77-year-old female with past med history significant for hyperlipidemia, paroxysmal atrial fibrillation, chronic heart failure with preserved ejection fraction, hypertension, nonrheumatic mitral valve regurgitation, GERD, bilateral low back pain, thrombocytopenia, tobacco use, presents with chest pain and lower extremity edema. Patient ran out of her nitro patches couple of days ago. Today morning she woke up with chest pain. And also she noticed increasing swelling significantly in the lower extremities last couple of days. Lives at home with her . Currently placed on nitro patch and chest pain is improving. Also received IV Lasix 40 mg in the ER and diuresed 2.3 L. No cough. No fever. No shortness of breath. No nausea. Appetite is down. No abdominal pain. Normal bowel and bladder movements. Current resting comfortably and hemodynamically stable. Saturating okay. Has a patch on her thoracic spine region ,states thoracic spine fusion instrument jutting out. Also has pain pump. Past medical history. As mentioned above. Past surgical history. Multiple lumbar fusion surgeries. Thoracic spine fusion surgery. Total hysterectomy. Social history. . Smokes half pack a day for last 50 years. No alcohol use. No drug use. Family history. No family history on file Admission Exam Per Admitting Provider General- Not in distress. Head- atraumatic Eyes- PERRL. ENT- oropharynx clear Neck- supple, no JVD Lungs- clear to auscultation no wheezing or crackles. Heart- regular rhythm; no murmur, no gallop. Abdomen- normal bowel sounds, soft, nontender, no distension. Extremities- b/l lower extremity gross edema present. no erythema seen. Neuro- alert, oriented x 3; PERRL, no facial palsy; no dysarthria; moves extremities. Skin- warm & dry Principal Diagnosis Acute on chronic diastolic heart failure Discharge Exam General- Not in distress. Lungs-bilateral clear vesicular breath sounds Heart- regular rhythm; no murmur, no gallop. Abdomen- normal bowel sounds, soft, nontender, no distension. Extremities- b/l lower extremity gross edema present. no erythema seen. Neuro- alert, oriented x 3; PERRL, no facial palsy; no dysarthria; moves extremities. Skin- warm & dry Discharge Data Allergies Allergy/AdvReac Type Severity Reaction Status Date / Time chlorhexidine Allergy Intermediate Rash Verified 03/31/23 21:37 hydrochlorothiazide AdvReac Severe Pancreatiti Verified 03/31/23 21:37 s fluconazole [From Diflucan] AdvReac Intermediate Diarrhea Verified 03/31/23 2 1:37 (with oral) ondansetron [From Zofran] AdvReac Intermediate Headaches Verified 03/31/23 21:37 Consultations 04/17/23 21:11 ED Decision to Admit Stat 04/18/23 08:00 Consult Cardiology Routine Hospital Course (1) Acute diastolic (congestive) heart failure: 77-year-old female with past med history significant for hyperlipidemia, paroxysmal atrial fibrillation, chronic heart failure with preserved ejection fraction, hypertension, nonrheumatic mitral valve regurgitation, GERD, bilateral low back pain, thrombocytopenia, tobacco use, presents with chest pain and lower extremity edema. Acute on chronic diastolic heart failure Presented from home with significant increase in lower extremity edema Echocardiogram during the hospitalization shows EF of 60 to 65%; moderate to severe systolic mitral regurgitation. EKG on admission personally reviewed; normal sinus rhythm; QTc of 389 During the hospitalization, patient was diuresed with IV Lasix 40 mg twice daily. Cardiology was consulted for comanagement. At discharge, she was prescribed Lasix 40 mg once a day and spironolactone 25 mg once a day. Atypical chest pain, ACS ruled out ran off Nitro patches EKG on admission personally reviewed; normal sinus rhythm; QTc of 389 High-sensitivity troponin negative Echocardiogram as above Patient was prescribed Imdur 30 mg once daily as per cardiology. Acute UTI Urinalysis suggestive of infection Urine culture positive for Klebsiella 3 days of ceftriaxone. PT OT evaluation was done. Discussed with patient regarding going to rehab; patient wanted to go home with home health. Please note the above document was generated using voice recognition software. It may contain grammatical, syntax or spelling errors. Any formal questions or concerns about the content, text or information contained within the body of this dictation should be directly addressed to the provider for clarification Total Time Total Time Spent Total Time Spent (In Minutes): 45 Total Time Includes: Examination of the Patient, Discharge Planning, Medication Reconciliation, Communication With Other Providers and Other Discharge Plan Discharge Items Patient Disposition: Home - Home Health Services Reason For Visit: CHEST PAIN, ACUTE CHF Discharge Diagnosis: Acute on chronic diastolic heart failure Atypical chest pain, ACS ruled out Condition on Discharge: Fair Activity: Resume your previous activity Non-emergency contact: Primary Care Provider Call non-emergency contact if: you have any medication questions and your symptoms worsen Follow-up/Referrals: Casey Rodgers [Primary Care Provider] - 04/28/23 2:00 pm (with Dr Manley) Diet: Regular Addtl Attending Provider Instructions: You were admitted to the hospital due to heart failure and chest pain. You were seen by cardiology during the hospitalization. Following medication adjustment has been done: 1) you are started on Imdur 30 mg once a day. You can stop using the Nitropatch that was prescribed to you last admission. 2) you are started on Lasix 40 mg once a day. This spironolactone dose frequency has been increased from 3 times a day to every day. Please check your weight every day and make a note of it. If you notice that your weight has increased by 3 to 5 pounds and you are also noticed that your legs are swollen; please take an extra dose of Lasix in the afternoon. Please contact your primary care doctor as well. An appointment will be set up with your primary care doctor for sometime later this week or next week. Pending Studies at Discharge: No Stand-Alone Forms: My [employer], Smoking Cessation Medications and DC Order Prescriptions: New isosorbide mononitrate 30 mg Tablet Extended Release 24 Hr 30 mg PO QAM Qty: 30 0RF furosemide [Lasix] 40 mg tablet 40 mg PO DAILY Qty: 30 0RF Continued promethazine 12.5 mg tablet 12.5 mg PO Q6H PRN (Reason: Nausea) buspirone 5 mg tablet 5 mg PO BID multivitamin Tablet 1 tab PO QAM trazodone 100 mg Tablet 200 mg PO HS omeprazole 20 mg Tablet,Delayed Release (Dr/Ec) 20 mg PO QPM rizatriptan 10 mg Tablet 10 mg PO UD PRN (Reason: Migraine Headache) Rx Instructions: take 1 tab at onset of headache; if no relief may repeat 1 tab after at least 2 hrs; max = 3 tabs/24 hr atorvastatin 10 mg Tablet 10 mg PO QAM Qty: 30 0RF tfoabgkfgo-szyqcjedntxki-xskk 50-325-40 mg Tablet 1 tab PO TID PRN (Reason: Migraine Headache) calcium carbonate-vitamin D3 [Calcium 600 + D(3)] 600 mg-10 mcg (400 unit) Tablet 1 tab PO DAILY Hydromorphone Pain Pump 0 mg INJ DIRECTED metoprolol succinate 25 mg tablet extended release 24 hr 25 mg PO QAM hydrocodone-acetaminophen 5-325 mg tablet 1 - 2 tab PO Q4H MDD 4 GRAMS APAP/24 HOURS warfarin 5 mg tablet See Rx Instructions .ROUTE .COMPLEX Rx Instructions: TAKES 2.5 MG WED, , WED, , WED & SAT. DOES NOT TAKE ANY ON MONDAYS. potassium chloride [Klor-Con M20] 20 mEq tablet,ER particles/crystals 20 meq PO QAM Rx Instructions: take for 7 days nitroglycerin 0.4 mg tablet, sublingual 0.4 mg sublingual Q5M PRN (Reason: chest pain) Qty: 30 0RF Rx Instructions: max 3 tabs, if pain persists seek immediate medical attention Changed spironolactone 25 mg tablet 25 mg PO DAILY Qty: 30 0RF Rx Instructions: Wednesday, Wednesday, Wednesday Discontinued furosemide [Lasix] 20 mg Tablet 20 mg PO [id number] Rx Instructions: Wednesday through Wednesday nitroglycerin [Nitro-Dur] 0.4 mg/hr Patch 24 Hour 1 patch transdermal QAM Qty: 30 0RF Discharge Orders: Discharge Order- CHF (Routine); Ordered 04/20/23 Ordered By: Abelardo Dennis/Other Patient Handouts: Heart Failure Make Changes Diet Admission Data Admit Date/Time: 04/18/23 00:48 Attending Provider: Abelardo Sheridan Admit Provider: Roger Gann Primary Care Provider: Casey Rodgers Other Providers: Roger Gann; Mac Christianson Other Interventions: Discharge Summary Assessment (RN) Last Done: 04/20/23 11:15
[2023-04-20] MEDS ORDERED: WARFARIN SOD 5 MG TAB PO SCH (16:00)
== END 2023-04-20 11:45 | disposition home health service (06) | DRG 291 ==
LOC: ED 18:26 → EDINP 04-18 00:48 → 2S 04-18 03:48
DX: E78.5 Hyperlipidemia, unspecified; F41.9 Anxiety disorder, unspecified; Z83.3 Family history of diabetes mellitus; I34.0 Nonrheumatic mitral (valve) insufficiency; I25.10 Atherosclerotic heart disease of native coronary artery without angina pectoris; R07.9 Chest pain, unspecified; N39.0 Urinary tract infection, site not specified; Z98.1 Arthrodesis status; I11.0 Hypertensive heart disease with heart failure; G43.909 Migraine, unspecified, not intractable, without status migrainosus; K21.9 Gastro-esophageal reflux disease without esophagitis; F17.210 Nicotine dependence, cigarettes, uncomplicated; Z79.01 Long term (current) use of anticoagulants; F32.9 Major depressive disorder, single episode, unspecified; B96.1 Klebsiella pneumoniae [K. pneumoniae] as the cause of diseases classified elsewhere; I48.0 Paroxysmal atrial fibrillation; I50.33 Acute on chronic diastolic (congestive) heart failure

== ENCOUNTER 2024-03-01 10:48 | Inpatient (IN) ==
--- NOTE | 2024-03-01 11:58 | XRay Report ---
SINGLE VIEW CHEST CLINICAL HISTORY: Atypical chest pain. FINDINGS: An AP, portable, upright chest radiograph is compared to study dated 04/17/2023. Correlation is made with chest CT dated 03/31/2023. The examination is degraded by portable technique and patien t rotation. The heart is enlarged noting atherosclerotic calcification of the thoracic aorta. The pu lmonary vasculature is noncongested. Chronic interstitial thickening is similar to previous. There is bibasilar scarring/atelectasis. No airspace consolidation or large pleural effusion is identified. N o pneumothorax is seen. The skeletal structures are osteopenic. There are chronic/healed right-sided rib fractures. Extensive postsurgical change is seen throughout the imaged thoracolumbar spine. There is chronic deformity of the right proximal humerus. An electronic device projects over the left uppe r abdomen. IMPRESSION: Cardiomegaly with no active disease in the chest. ACT 112: Negative or not required by law. Electronically signed by: Elver Herrera M.D. 03/01/2024 11:56 AM
[2024-03-01 12:20] LABS: Basophils # (auto) 0.07 K/uL (0.00-0.20); Basophils % (auto) 0.9 %; Eosinophils # (auto) 0.09 K/uL (0.00-0.50); Eosinophils % (auto) 1.2 %; Hematocrit (blood only) 42.4 % (37.0-47.0); Hemoglobin 13.2 g/dl (12.0-16.0); Immature Granulocytes # (auto) 0.02 K/uL (0.01-0.20); Immature Granulocytes % (auto) 0.3 %; Lymphocytes % (auto) 9.2 %; Mean Corpuscular Hemoglobin 30.6 pg (25.0-34.0); Mean Corpuscular Hgb Conc 31.1 g/dL (32.0-36.0); Mean Corpuscular Volume 98.1 fL (80.0-100.0); Mean Platelet Volume 10.7 fL (9.4-12.4); Monocytes # (auto) 0.63 K/uL (0.11-0.59); Monocytes % (auto) 8.2 %; Neutrophils # (auto) 6.14 K/uL (1.40-6.50); Neutrophils % (auto) 80.2 %; Platelet Count 296 K/uL (130-400); RDW Coefficient of Variation 15.3 % (11.5-14.5); Red Blood Count 4.32 M/uL (4.20-5.40); White Blood Count 7.65 K/ul (4.8-10.8)
[2024-03-01 12:27] LABS: Albumin Globulin Ratio 1.3 (0.9-2); Albumin Level 3.9 gm/dl (3.4-5.0); BUN Creatinine Ratio 27.1 (10-20); Bilirubin,Total 0.3 mg/dl (0.2-1.0); Calcium 8.9 mg/dl (8.6-10.3); Creatinine Clr Calc Pharmacy 38.5 ml/min; Potassium 3.7 mmol/L (3.5-5.1); Total Protein 6.9 gm/dl (6.0-8.3)
[2024-03-01 12:33] LABS: Troponin I High Sensitivity 12.9 pg/ml (0-14)
[2024-03-01 12:36] LABS: Partial Thromboplastin Ratio 1.2; Partial Thromboplastin Time 31 Seconds (21-31); Prothrombin Time 11.2 Seconds (9.0-12.0)
--- NOTE | 2024-03-01 13:02 | Emergency Department Note ---
Impression & Plan CHF exacerbation, Bilateral edema of lower extremity ED Provider Note NAME: REGGIE POWERS AGE: 78 SEX: F : 1945 ARRIVES VIA: Walk-In INFORMANT: Patient, ED PROVIDER(S): Briana Villatoro MD CHIEF COMPLAINT: Leg swelling HPI: This is a 78-year-old female presenting for leg swelling. Patient notes that she was seen in outside hospital multiple weeks ago after a fall. She had x-rays which revealed no traumatic injury. She then went back after having leg swelling was given antibiotics and Lasix. Her redness went down however the swelling did not. She been trialed on 40 mg of Lasix twice daily without much relief. She is gained 10 pounds in this time and had difficulty ambulation due to this. She was sent in by her PCP for IV Lasix. ROS: See above HPI for pertinent positives & negatives. A total of 10 systems reviewed and were otherwise negative. PAST MEDICAL HISTORY: See Below PAST SURGICAL HISTORY: See Below FAMILY HISTORY: See Below SOCIAL HISTORY: See Below HOME MEDICATIONS: See Below ALLERGIES: See Below VITALS: See Below PHYSICAL EXAMINATION: General: resting comfortably in no acute distress Head: Normocephalic and atraumatic Eyes: Normal inspection, extraocular muscles intact Ear, nose, throat: Normal external exam Neck: Normal range of motion Respiratory: lungs clear to auscultation bilaterally Cardiovascular: Regular rate/rhythm, no murmur GI: soft, nontender, no guarding or rebound Extremities: 2+ pitting edema to bilateral lower extremities Neuro: The patient awake and alert, appropriately conversive, no focal deficits, symmetric faces Skin: Warm, dry, and intact MEDICAL DECISION MAKING: This is a 78-year-old female presenting for leg swelling. Patient has obvious lower extremity edema, likely due to CHF. She has been trialed with on stable Lasix 40 m twice daily without improvement in her symptoms. - bloodwork is reviewed showing no significant leukocytosis, anemia, electrolyte or creatinine abnormality -BNP significant elevated at 765. INR is only 1 at this time. -Chest x-ray Independently interpreted by me reveals cardiomegaly without focal opacity or pleural effusion -At this time patient will require admission for her failed outpatient therapy for her lower extremity edema. Will give her IV Lasix at this time. -Care discussed with hospitalist service for admission Differential diagnosis: CHF, lower extremity edema, DVT ER treatment provided: See below Independent History obtained from: Son [facility] interpreted by me: ECG: EKG Independently interpreted me as sinus rhythm at a rate of 62, prolonged QT other normal intervals, no ST segment elevation consistent with STEMI Cardiac Monitoring: An order was placed for continuous cardiac monitoring. The monitor shows a rate of 71 with sinus rhythm. Laboratory studies: As stated above and show below. Imaging studies: See below. Past Med/Surg History Problem List (Updated 03/01/24 @ 19:30 by Briana Villatoro MD) Bilateral edema of lower extremity (Acute) CHF exacerbation (Acute) COPD (chronic obstructive pulmonary disease) Acute on chronic heart failure with preserved ejection fraction (HFpEF) Skin ulcer of back, limited to breakdown of skin Pedal edema (Acute) Fluid overload (Acute) Precordial chest pain (Acute) Hypertension (Acute) SOB (shortness of breath) (Acute) CAD (coronary artery disease) (Acute) Atypical chest pain (Acute) Valvular heart disease Bradycardia Chronic heart failure with preserved ejection fraction (HFpEF) Vomiting Depression Smoker HLD (hyperlipidemia) HTN (hypertension) CAD (coronary artery disease) Chest pain (Acute) Carbon monoxide poisoning (Acute) Chronic back pain (Acute) penitentiary (current) use of anticoagulants (Acute) Mitral regurgitation Elevated troponin I level Left-sided chest pain (Acute) Hypoxia (Acute) Anticoagulated (Acute) Paroxysmal atrial fibrillation Atypical chest pain Opiate dependence Atrial fibrillation Abnormal EKG (Acute) History of mitral valve prolapse History of back pain Encounter for pre-operative examination Fall Presence of intrathecal pump (Chronic) Recurrent UTI Fracture, tibia, with fibula History of open reduction and internal fixation (ORIF) procedure Left hip History of hip surgery Right hip Chronic radicular lumbar pain (Chronic) Postlaminectomy syndrome of lumbosacral region (Chronic) Postlaminectomy syndrome of thoracic region (Chronic) Pancreatitis Approximately 2018 Hiatal hernia Medical History Acute diastolic (congestive) heart failure Encounter for pre-operative examination Gastritis "Getting under control" MVP (mitral valve prolapse) Not noted on 03/2016 echo (Mild MR was present) History of syncope Previously followed with cardiology, per Dr Lockhart ([facility]), "syncope in the setting of polypharmacy for severe low back pain." Last seen by cardio 11/2018, to follow up PRN per cardio. History of blood transfusion Pt reports post-op after hip surgery and lumbar surgery Migraine Gastric ulcer GERD (gastroesophageal reflux disease) Surgical History History of anesthesia reaction "severe hypotension" per patient following second back surgery. ([facility] 2017). Review of records shows documentation from anesthesia that hypotension was treated in PACU, BP in post-anesthetic evaluation 92/51. Subsequent intrathecal pain pump (03/19/20): Grade view 1, MAC#3, ETT 6.5 at [facility] without issue noted per post-op anesthesia progress note/discharge summary. History of cholecystectomy S/P hardware removal Left hip x2 History of dilatation and curettage S/P CECILIA-BSO History of colonoscopy History of esophagogastroduodenoscopy (EGD) History of cataract surgery R/L History of cardiac cath Approximately 1994 > no stents H/O spinal fusion Extensive [id number] (x2 lumbar fusions) History of appendectomy Family History Mother Family history of diabetes mellitus Grandmother (Maternal) Family history of diabetes mellitus Grandmother (Paternal) Family history of diabetes mellitus Other No family history of adverse response to anesthesia Social History Smoking Status: Current every day smoker Tobacco Type: Cigarettes packs per day: 0.5; Cigarettes Per Day: 10; Second Hand Exposure: No; Do You Dip or Chew Tobacco: No; Hx Alcohol Use: No Hx Substance Use: No Preferred Language: Lao Communication Ability: Effective Visual Impairment: No Limitations Hearing Ability: Normal Infectious Disease Physician Required: No Beliefs That Will Affect Care: None marital status: Current Living Situation: Spouse Current Living Situation Comment: Andre current occupational status: retired Feels Safe at Home: Yes Assistive Devices: Denture - Upper, Glasses and Walker Allergies Allergies Allergy/AdvReac Type Severity Reaction Status Date / Time chlorhexidine Allergy Intermediate Rash Verified 09/16/23 11:29 hydrochlorothiazide AdvReac Severe Pancreatiti Verified 09/16/23 11:29 s fluconazole [From Diflucan] AdvReac Intermediate Diarrhea Verified 09/16/23 11:29 (with oral) ondansetron [From Zofran] AdvReac Intermediate Headaches Verified 09/16/23 11:29 Home Meds Home Medications Medication Instructions Recorded Confirmed multivitamin 1 tab PO QAM 02/05/20 03/01/24 rizatriptan 10 mg tablet 10 mg PO UD PRN Migraine Headache 01/20/22 03/01/24 trazodone 100 mg tablet 200 mg PO HS 01/20/22 03/01/24 promethazine 12.5 mg tablet 12.5 mg PO Q6H PRN Nausea 06/08/22 03/01/24 Hydromorphone Pain Pump 0 mg INJ DIRECTED 01/31/23 03/01/24 [id number] 1 tab PO TID PRN Migraine Headache 01/31/23 03/01/24 50 mg-325 mg-40 mg tablet calcium 600 mg (as 1 tab PO DAILY 01/31/23 03/01/24 carbonate)-vitamin D3 10 mcg (400 unit) tablet (Calcium 600 + D(3)) metoprolol succinate 25 mg 25 mg PO UD 01/31/23 03/01/24 tablet,extended release 24 hr buspirone 5 mg tablet 5 mg PO BID 02/10/23 03/01/24 hydrocodone 5 mg-acetaminophen 325 1 - 2 tab PO Q4H PAIN 03/31/23 03/01/24 mg tablet warfarin 5 mg tablet 5 mg PO DAILY@1600 03/31/23 03/01/24 nitroglycerin 0.4 mg/hr 1 patch topical DAILY 04/26/23 03/01/24 transdermal 24 hour patch omeprazole 20 mg capsule,delayed 20 mg PO DAILY 09/16/23 03/01/24 release aspirin 81 mg chewable tablet 81 mg PO DAILY 03/01/24 03/01/24 furosemide 40 mg tablet (Lasix) 40 mg PO UD 03/01/24 03/01/24 spironolactone 25 mg tablet 12.5 mg PO UD 03/01/24 03/01/24 Previous Rx's Medication Instructions Recorded atorvastatin 10 mg tablet 10 mg PO QAM #30 tabs 11/10/22 isosorbide mononitrate 30 mg 30 mg PO QAM #30 tabs 04/20/23 tablet,extended release 24 hr nitroglycerin 0.4 mg sublingual 0.4 mg sublingual Q5M PRN chest 04/20/23 tablet pain #30 tabs naloxone 4 mg/actuation nasal spray 1 spray intranasal Q3M PRN opioid 07/06/23 overdose #2 ea Results & Data (ED) Vital Signs Vital Signs - 24 hr 03/01/24 10:50 03/01/24 11:46 03/01/24 11:46 Temperature 36.5 C Temperature Source Temporal Artery Scan Pulse Rate 69 Pulse Rate [Apical] 62 Respiratory Rate 18 20 Respiratory Effort / Characteristics Non-Labored Spontaneous Non-Labored Respiratory Depth Normal Normal Blood Pressure 130/76 Blood Pressure [Right Arm] 114/65 Blood Pressure Mean 94 Blood Pressure Mean [Right Arm] 81 Blood Pressure Position Sitting Pulse Oximetry 95 94 93 Oxygen Delivery Method Room Air Room Air Room Air Sepsis Recent Fever Within 48 Hours No Sepsis New/Unexplained Change in Mental Status No Sepsis Action Taken by Nursing No Action Required 03/01/24 12:09 03/01/24 12:09 03/01/24 12:46 Temperature Temperature Source Pulse Rate 65 Pulse Rate [Apical] 67 74 Respiratory Rate 20 19 Respiratory Effort / Characteristics Non-Labored Non-Labored Respiratory Depth Normal Normal Blood Pressure Blood Pressure [Right Arm] 124/67 108/47 L Blood Pressure Mean Blood Pressure Mean [Right Arm] 86 67 Blood Pressure Position Pulse Oximetry 93 93 Oxygen Delivery Method Room Air Room Air Sepsis Recent Fever Within 48 Hours Sepsis New/Unexplained Change in Mental Status Sepsis Action Taken by Nursing Laboratory Data 03/01/24 11:46 03/01/24 11:46 Lab Results 03/01/24 Range/Units 11:46 WBC 7.65 (4.8-10.8) K/ul RBC 4.32 (4.20-5.40) M/uL Hgb 13.2 (12.0-16.0) g/dl Hct 42.4 (37.0-47.0) % MCV 98.1 (80.0-100.0) fL MCH 30.6 (25.0-34.0) pg MCHC 31.1 L (32.0-36.0) g/dL RDW Std Deviation 55.0 H (36.4-46.3) fL RDW Coeff of Oliver 15.3 H (11.5-14.5) % Plt Count 296 (130-400) K/uL MPV 10.7 (9.4-12.4) fL Immature Gran % (Auto) 0.3 % Neut % (Auto) 80.2 % Lymph % (Auto) 9.2 % [place] % (Auto) 8.2 % Eos % (Auto) 1.2 % Baso % (Auto) 0.9 % Neut # (Auto) 6.14 (1.40-6.50) K/uL Lymph # (Auto) 0.70 L (1.20-3.40) K/uL [place] # (Auto) 0.63 H (0.11-0.59) K/uL Eos # (Auto) 0.09 (0.00-0.50) K/uL Baso # (Auto) 0.07 (0.00-0.20) K/uL Immature Gran # (Auto) 0.02 (0.01-0.20) K/uL PT 11.2 (9.0-12.0) Seconds INR 1.0 (0.9-1.1) APTT 31 (21-31) Seconds PTT Ratio 1.2 Sodium 141 (136-145) mmol/L Potassium 3.7 (3.5-5.1) mmol/L Chloride 101 (98-107) mmol/L Carbon Dioxide 33 H (21-32) mmol/L Anion Gap 7 (3-11) BUN 23 (6-23) mg/dl Creatinine 0.85 (0.6-1.2) mg/dl Est Cr Clr Drug Dosing 38.5 ml/min eGFR 69.65 BUN/Creatinine Ratio 27.1 H (10-20) Glucose 90 (70-99(Fasting)) mg/dl Calcium 8.9 (8.6-10.3) mg/dl Total Bilirubin 0.3 (0.2-1.0) mg/dl AST 17 (13-39) U/L ALT 11 (7-52) U/L Alkaline Phosphatase 194 H (34-104) U/L Troponin I High Sens 12.9 (0-14) pg/ml B-Natriuretic Peptide 765 H (0-100) pg/ml Total Protein 6.9 (6.0-8.3) gm/dl Albumin 3.9 (3.4-5.0) gm/dl Globulin 3.0 (2.5-4.0) gm/dl Albumin/Globulin Ratio 1.3 (0.9-2) Administered Medications Hydrocodone Bitart/Acetaminophen (Hydrocodone/Acetamophen 5/325mg Tab) 1 tab PO Q4H REJI Stop: 03/15/24 16:14 Last Admin: 03/01/24 19:19 Dose: 1 tab Documented By: Admin: 03/01/24 16:40 Dose: 1 tab Documented By: NAN Enoxaparin Sodium (Enoxaparin Inj 60 Mg/0.6 Ml Syr) 50 mg SQ Q12H REJI Stop: 03/31/24 15:59 Last Admin: 03/01/24 16:48 Dose: 50 mg Documented By: NAN Furosemide (Furosemide 40 Mg/4 Ml Vial) 40 mg IV BID17 REJI Stop: 03/31/24 16:59 Last Admin: 03/01/24 16:42 Dose: 40 mg Documented By: NAN Polyethylene Glycol (Polyethylene (Miralax) 17 Gm Pack) 17 gm PO DAILY PRN PRN Reason: Constipation Stop: 03/31/24 15:43 Last Admin: 03/01/24 18:15 Dose: 17 gm Documented By: JAREN Potassium Chloride (Potassium Chloride Crtab 20 Meq Tabcr) 20 meq PO BID REJI Stop: 03/31/24 15:43 Last Admin: 03/01/24 16:41 Dose: 20 meq Documented By: NAN Spironolactone (Spironolactone 12.5 Mg Tab) 12.5 mg PO MoWeFr@0900 [facility] Stop: 03/31/24 15:59 Last Admin: 03/01/24 16:47 Dose: 12.5 mg Documented By: NAN Warfarin Sodium (Warfarin Sod 7.5 Mg Tab) 7.5 mg PO MoWeFr@1600 [facility] Stop: 03/31/24 15:59 Last Admin: 03/01/24 16:46 Dose: 7.5 mg Documented By: NAN Discontinued Medications Furosemide (Furosemide 40 Mg/4 Ml Vial) 40 mg IV ONE ONE Stop: 03/01/24 12:58 Last Admin: 03/01/24 13:16 Dose: 40 mg Documented By: ANGIE Ketorolac Tromethamine (Ketorolac Tromethamine 15 Mg/Ml Vial) 15 mg IV NOW ONE Stop: 03/01/24 12:58 Last Admin: 03/01/24 13:16 Dose: 15 mg Documented By: ES Imaging Data Radiologist's Impression: Chest X-Ray 03/01/24 10:54 SINGLE VIEW CHEST CLINICAL HISTORY: Atypical chest pain. FINDINGS: An AP, portable, upright chest radiograph is compared to study dated 04/17/2023. Correlation is made with chest CT dated 03/31/2023. The examination is degraded by portable technique and patient rotation. The heart is enlarged noting atherosclerotic calcification of the thoracic aorta. The pulmonary vasculature is noncongested. Chronic interstitial thickening is similar to previous. There is bibasilar scarring/atelectasis. No airspace consolidation or large pleural effusion is identified. No pneumothorax is seen. The skeletal structures are osteopenic. There are chronic/healed right-sided rib fractures. Extensive postsurgical change is seen throughout the imaged thoracolumbar spine. There is chronic deformity of the right proximal humerus. An electronic device projects over the left upper abdomen. IMPRESSION: Cardiomegaly with no active disease in the chest. ACT 112: Negative or not required by law. Electronically signed by: Elver Herrera M.D. 03/01/2024 11:56 AM Discharge Plan Visit Data Chief Complaint: Swelling/Edema to Extremity Stated Complaint: FALL, SWOLLEN LEG ED Provider: Briana Villatoro Discharge Problem: CHF exacerbation, Bilateral edema of lower extremity Patient Disposition: Admitted As Inpatient Discharge Instructions Interventions: ED Discharge Assessment Last Done: 03/01/24 15:45
[2024-03-01] MEDS: KETOROLAC TROMETHAMINE 15 MG/ML VIAL IV ONE (13:16)
[2024-03-01] MEDS: FUROSEMIDE 40 MG/4 ML VIAL IV ONE (13:16)
--- NOTE | 2024-03-01 13:31 | History & Physical Report ---
Date of Service March 01, 2024 Assessment & Plan (1) Acute on chronic heart failure with preserved ejection fraction (HFpEF): (2) CAD (coronary artery disease): (3) Paroxysmal atrial fibrillation: (4) COPD (chronic obstructive pulmonary disease): Plan This is a 78-year-old female who has significant past medical history of PAF anticoagulated with warfarin, chronic HFpEF, HLD, HTN, mitral insufficiency, COPD, chronic tobacco use, GERD, chronic back pain who presents to ED secondary to worsening lower extremity swelling. Acute on Chronic HFpEF CAD admit to [facility] tele pt with 10# weight gain and increased lower ext edema over last 2-3 weeks Pt lasix increased to 40mg BID orally w/o improvement admit for IV diuresis IV Lasix 40mg BID, strict I and O, daily weight last echo 05/01 which revealed LVEF 60 to 65%, left atrium moderately dilated, moderate to severe early systolic mitral regurgitation, mild tricuspid regurg, mild pulmonary hypertension. continue aldactone, metoprolol, imdur, ASA, statin supplement KCL 20meq BID, follow bmp consider consult cardiology if sx not improving obtain b/l venous Doppler, no active cellulitis, consult wound care Ambulatory dysfunction 2/2 above PT/OT PAF NSR on ECG INR 1.0, pt reports taking medication but I question compliance will place on Lovenox BID and warfarin until INR > 2 COPD Chronic tobacco abuse encourage cessation, no acute exac Chronic Back pain Presence of intrathecal pain pump continue home prn meds DVT ppx: SQ Lovenox/Warfarin, D/C Lovenox when INR > 2 DNR/DNI PCP: Vishal Dispo: admit to [facility], pt lives with , walks with rollator, consult PT/OT I spent a total of 76 min minutes reviewing notes, outpatient records, labs, medication, coordinating, documenting and providing care for this patient excluding time spent in the performance of separately billed services. Pt was seen and examined in collaboration with Dr. Phipps, please see addendum History of Present Illness Chief Complaint: Worsened bilateral lower extremity edema. Primary Care Provider: Casey Rodgers This is a 78-year-old female who has significant past medical history of PAF anticoagulated with warfarin, chronic HFpEF, HLD, HTN, mitral insufficiency, COPD, chronic tobacco use, GERD, chronic back pain who presents to ED secondary to worsening lower extremity swelling. She reports over the last 2 to 3 weeks having increased lower extremity swelling. She reports being compliant with her Lasix. She states her PCP recently increased her Lasix to 40 mg twice daily without any relief. She is up approximately 10 pounds. She denies any dietary indiscretions. She does have occasional NUNN. She denies any fever, chills, sweats, lightheadedness, dizziness, chest pain, orthopnea, hemoptysis, nausea, vomiting, abdominal pain, change in bowel or urinary habits. She has some drainage coming out of her right lower extremity. Of significance patient follows with [facility] cardiology. She did undergo a nuclear stress test on November 09, 2022 which was equivocal with symptoms of chest discomfort observed after administration of Lexiscan and equivocal EKG changes. At this time patient opted for medical management. Her last echocardiogram was done in April 2023 which revealed LVEF 60 to 65%, left atrium moderately dilated, moderate to severe early systolic mitral regurgitation, mild tricuspid regurg, mild pulmonary hypertension. In ED patient was hemodynamically stable. Her CBC and CMP was generally unremarkable. She did have an elevated BNP at 765. She reports being on warfarin but her INR was 1.0. She reports smoking 0.5ppd. She denies significant alcohol or elicit drug use. She lives with her and uses a rollator for ambulation. She feels it has been more difficult to walk due to the increased swelling. Allergies Allergy/AdvReac Type Severity Reaction Status Date / Time chlorhexidine Allergy Intermediate Rash Verified 09/16/23 11:29 hydrochlorothiazide AdvReac Severe Pancreatiti Verified 09/16/23 11:29 s fluconazole [From Diflucan] AdvReac Intermediate Diarrhea Verified 09/16/23 11:29 (with oral) ondansetron [From Zofran] AdvReac Intermediate Headaches Verified 09/16/23 11:29 Home Medications Medication Instructions Recorded Confirmed Type multivitamin 1 tab PO QAM 02/05/20 03/01/24 History rizatriptan 10 mg tablet 10 mg PO UD PRN Migraine Headache 01/20/22 03/01/24 History trazodone 100 mg tablet 200 mg PO HS 01/20/22 03/01/24 History promethazine 12.5 mg tablet 12.5 mg PO Q6H PRN Nausea 06/08/22 03/01/24 History atorvastatin 10 mg tablet 10 mg PO QAM #30 tabs 11/10/22 03/01/24 Rx Hydromorphone Pain Pump 0 mg INJ DIRECTED 01/31/23 03/01/24 History hypdpsxeuu-rspnrqlttvegt-[id number] 1 tab PO TID PRN Migraine Headache 01/31/23 03/01/24 History 50 mg-325 mg-40 mg tablet calcium 600 mg (as 1 tab PO DAILY 01/31/23 03/01/24 History carbonate)-vitamin D3 10 mcg (400 unit) tablet (Calcium 600 + D(3)) metoprolol succinate 25 mg 25 mg PO UD 01/31/23 03/01/24 History tablet,extended release 24 hr buspirone 5 mg tablet 5 mg PO BID 02/10/23 03/01/24 History hydrocodone 5 mg-acetaminophen 325 1 - 2 tab PO Q4H PAIN 03/31/23 03/01/24 History mg tablet warfarin 5 mg tablet 5 mg PO DAILY@1600 03/31/23 03/01/24 History isosorbide mononitrate 30 mg 30 mg PO QAM #30 tabs 04/20/23 03/01/24 Rx tablet,extended release 24 hr nitroglycerin 0.4 mg sublingual 0.4 mg sublingual Q5M PRN chest 04/20/23 03/01/24 Rx tablet pain #30 tabs nitroglycerin 0.4 mg/hr 1 patch topical DAILY 04/26/23 03/01/24 History transdermal 24 hour patch naloxone 4 mg/actuation nasal spray 1 spray intranasal Q3M PRN opioid 07/06/23 03/01/24 Rx overdose #2 ea omeprazole 20 mg capsule,delayed 20 mg PO DAILY 09/16/23 03/01/24 History release aspirin 81 mg chewable tablet 81 mg PO DAILY 03/01/24 03/01/24 History furosemide 40 mg tablet (Lasix) 40 mg PO UD 03/01/24 03/01/24 History spironolactone 25 mg tablet 12.5 mg PO UD 03/01/24 03/01/24 History Past Med/Surg History Problem List (Updated 03/01/24 @ 14:42 by Marilee James PA-C) COPD (chronic obstructive pulmonary disease) Acute on chronic heart failure with preserved ejection fraction (HFpEF) Skin ulcer of back, limited to breakdown of skin Pedal edema (Acute) Fluid overload (Acute) Precordial chest pain (Acute) Hypertension (Acute) SOB (shortness of breath) (Acute) CAD (coronary artery disease) (Acute) Atypical chest pain (Acute) Valvular heart disease Bradycardia Chronic heart failure with preserved ejection fraction (HFpEF) Vomiting Depression Smoker HLD (hyperlipidemia) HTN (hypertension) CAD (coronary artery disease) Chest pain (Acute) Carbon monoxide poisoning (Acute) Chronic back pain (Acute) 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 (Acute) Mitral regurgitation Elevated troponin I level Left-sided chest pain (Acute) Hypoxia (Acute) Anticoagulated (Acute) Paroxysmal atrial fibrillation Atypical chest pain Opiate dependence Atrial fibrillation Abnormal EKG (Acute) History of mitral valve prolapse History of back pain Encounter for pre-operative examination Fall Presence of intrathecal pump (Chronic) Recurrent UTI Fracture, tibia, with fibula History of open reduction and internal fixation (ORIF) procedure Left hip History of hip surgery Right hip Chronic radicular lumbar pain (Chronic) Postlaminectomy syndrome of lumbosacral region (Chronic) Postlaminectomy syndrome of thoracic region (Chronic) Pancreatitis Approximately 2018 Hiatal hernia Medical History Acute diastolic (congestive) heart failure Encounter for pre-operative examination Gastritis "Getting under control" MVP (mitral valve prolapse) Not noted on 03/2016 echo (Mild MR was present) History of syncope Previously followed with cardiology, per Dr Lockhart ([facility]), "syncope in the setting of polypharmacy for severe low back pain." Last seen by cardio 11/2018, to follow up PRN per cardio. History of blood transfusion Pt reports post-op after hip surgery and lumbar surgery Migraine Gastric ulcer GERD (gastroesophageal reflux disease) Surgical History History of anesthesia reaction "severe hypotension" per patient following second back surgery. ([facility] 2017). Review of records shows documentation from anesthesia that hypotension was treated in PACU, BP in post-anesthetic evaluation 92/51. Subsequent intrathecal pain pump (03/19/20): Grade view 1, MAC#3, ETT [address] [facility] without issue noted per post-op anesthesia progress note/discharge summary. History of cholecystectomy S/P hardware removal Left hip x2 History of dilatation and curettage S/P CECILIA-BSO History of colonoscopy History of esophagogastroduodenoscopy (EGD) History of cataract surgery R/L History of cardiac cath Approximately 1994 > no stents H/O spinal fusion Extensive [id number] (x2 lumbar fusions) History of appendectomy Family History Mother Family history of diabetes mellitus Grandmother (Maternal) Family history of diabetes mellitus Grandmother (Paternal) Family history of diabetes mellitus Other No family history of adverse response to anesthesia Social History Smoking Status: Current every day smoker Tobacco Type: Cigarettes packs per day: 0.5; Cigarettes Per Day: 10; Second Hand Exposure: No; Do You Dip or Chew Tobacco: No; Hx Alcohol Use: No Hx Substance Use: No Preferred Language: Kinyarwanda Communication Ability: Effective Visual Impairment: No Limitations Hearing Ability: Normal Superintendent Division Required: No Beliefs That Will Affect Care: None marital status: Current Living Situation: Spouse Current Living Situation Comment: Andre current occupational status: retired Feels Safe at Home: Yes Assistive Devices: Denture - Upper, Glasses and Walker Review of Systems Review of Systems: All systems reviewed & are unremarkable except as noted in HPI & below Physical Exam Physical Exam: Constitutional: WD/WN, vitals as above, NAD, sitting up in bed, pleasant, conversing easily Head: Normocephalic, Atraumatic Eyes: PERRL, conjunctivae normal, anicteric sclerae ENMT: external ear and nose normal, oropharynx normal Neck: trachea midline, no thyromegaly normal visual inspection Respiratory: normal respiratory effort, lungs clear to auscultation, no wheeze, rales, rhonchi. Normal insp/exp effort, no accessory muscle use Cardiovascular: RRR, no murmur, no edema Vessels: no JVD or carotid bruit Chest: normal inspection of chest Abdomen: normal bowel sounds, soft, nontender, no hepatosplenomegaly Musculoskeletal: no cyanosis or clubbing, extremities motor strength 5/5 Skin: no rashes, warm and dry normal turgor Neurologic: PERRL, EOMI, accommodation nl, no face palsy, no dysarthria CN's II-XI intact bilaterally and moves all extremities Psychiatric: A+Ox3, euthymic affect Lymphatic: no cervical or axillary lymphadenopathy : deferred Results & Data Results & Data Vital Signs (Past 12 Hours) Vital Signs Temp Pulse Pulse Resp BP BP Pulse Ox 03/01/24 12:46 74 19 108/47 L 93 03/01/24 12:09 65 03/01/24 12:09 67 20 124/67 93 03/01/24 11:46 93 03/01/24 11:46 62 20 114/65 94 03/01/24 10:50 36.5 C 69 18 130/76 95 O2 Del Method 03/01/24 12:46 Room Air 03/01/24 12:09 03/01/24 12:09 Room Air 03/01/24 11:46 Room Air 03/01/24 11:46 Room Air 03/01/24 10:50 Room Air Laboratory Results I have independently reviewed and interpreted patient's admitting labs including CBC, CMP, PTT, PT/INR, bnp, mag and troponin. Diagnostic Findings Chest X-Ray 03/01/24 10:54 SINGLE VIEW CHEST CLINICAL HISTORY: Atypical chest pain. FINDINGS: An AP, portable, upright chest radiograph is compared to study dated 04/17/2023. Correlation is made with chest CT dated 03/31/2023. The examination is degraded by portable technique and patient rotation. The heart is enlarged noting atherosclerotic calcification of the thoracic aorta. The pulmonary vasculature is noncongested. Chronic interstitial thickening is similar to previous. There is bibasilar scarring/atelectasis. No airspace consolidation or large pleural effusion is identified. No pneumothorax is seen. The skeletal structures are osteopenic. There are chronic/healed right-sided rib fractures. Extensive postsurgical change is seen throughout the imaged thoracolumbar spine. There is chronic deformity of the right proximal humerus. An electronic device projects over the left upper abdomen. IMPRESSION: Cardiomegaly with no active disease in the chest. ACT 112: Negative or not required by law. Electronically signed by: Elver Herrera M.D. 03/01/2024 11:56 AM Medications Administered Medication List Discontinued Medications Furosemide (Furosemide 40 Mg/4 Ml Vial) 40 mg IV ONE ONE Stop: 03/01/24 12:58 Last Admin: 03/01/24 13:16 Dose: 40 mg Documented By: ES Ketorolac Tromethamine (Ketorolac Tromethamine 15 Mg/Ml Vial) 15 mg IV NOW ONE Stop: 03/01/24 12:58 Last Admin: 03/01/24 13:16 Dose: 15 mg Documented By: ES ECG Additional Comments: I have independently reviewed and interpreted patient's admitting EKG which revealed: nsr, sa, 62BPM, NO ST OR T WAVE C HANGES, qtc 606MS COVID-19 Results Results COVID-19 Adm Lab Results: RBC 4.32 M/uL (4.20-5.40) 03/01/24 WBC 7.65 K/ul (4.8-10.8) 03/01/24 Hgb 13.2 g/dl (12.0-16.0) 03/01/24 Hct 42.4 % (37.0-47.0) 03/01/24 Plt Count 296 K/uL (130-400) 03/01/24 Neutrophils (%) (Auto) 80.2 % 03/01/24 Lymphocytes (%) (Auto) 9.2 % 03/01/24 Monocytes # (Auto) 0.63 K/uL (0.11-0.59) H 03/01/24 Eosinophils # (Auto) 0.09 K/uL (0.00-0.50) 03/01/24 Immature Granulocyte % (Auto) 0.3 % 03/01/24 Neutrophils # (Auto) 6.14 K/uL (1.40-6.50) 03/01/24 Lymphocytes # (Auto) 0.70 K/uL (1.20-3.40) L 03/01/24 Monocytes # (Auto) 0.63 K/uL (0.11-0.59) H 03/01/24 Eosinophils # (Auto) 0.09 K/uL (0.00-0.50) 03/01/24 Basophils # (Auto) 0.07 K/uL (0.00-0.20) 03/01/24 Immature Granulocyte # (Auto) 0.02 K/uL (0.01-0.20) 10/23/2 4 Na 141 mmol/L (136-145) 03/01/24 K 3.7 mmol/L (3.5-5.1) 03/01/24 Cl 101 mmol/L (98-107) 03/01/24 CO2 33 mmol/L (21-32) H 03/01/24 Anion Gap 7 (3-11) 03/01/24 BUN 23 mg/dl (6-23) 03/01/24 Creatinine 0.85 mg/dl (0.6-1.2) 03/01/24 BUN/Creatinine Ratio 27.1 (10-20) H 03/01/24 Glucose Level 90 mg/dl (70-99(Fasting)) 03/01/24 Ca 8.9 mg/dl (8.6-10.3) 03/01/24 Total Bilirubin 0.3 mg/dl (0.2-1.0) 03/01/24 AST/SGOT 17 U/L (13-39) 03/01/24 ALT/SGPT 11 U/L (7-52) 03/01/24 Alkaline Phosphatase 194 U/L (34-104) H 03/01/24 Total Protein 6.9 gm/dl (6.0-8.3) 03/01/24 Albumin 3.9 gm/dl (3.4-5.0) 03/01/24 Globulin 3.0 gm/dl (2.5-4.0) 03/01/24 Albumin/Globulin Ratio 1.3 (0.9-2) 03/01/24 PTT 31 Seconds (21-31) 03/01/24 INR 1.0 (0.9-1.1) 03/01/24 Chest X-Ray 03/01/24 Code Status & VTE Plan Code Status FULL CODE VTE Prophylaxis Plan VTE Prophylaxis will be ordered: No Supervising Physician Co-Signing Physician Notes Attending addendum: The patient was seen and examined in emergency room She was admitted with bilateral leg swelling more on the right than the left with oozing of fluid from the right leg for the last 2 to 3 days She has some shortness of breath but denies any chest pain and/or palpitation Denies any fever and or chills and no nausea and/or vomiting On examination Lying in bed comfortably Hemodynamically stable Chestdecreased breath sounds bilaterally with minimal crackles at the bases HeartS1-S2 irregularly irregular Abdomenbenign Extremitiesbilateral leg swelling more on the right than the left. Chronic skin changes with secondary redness involving the right lower extremity. Her admission labs, EKG and imaging studies reviewed Has acute on chronic CHF with preserved EF Paroxysmal atrial fibrillation the rate is controlled on Coumadin INR is subtherapeutic and will start subcu Lovenox and oral Coumadin Will have Lasix IV and monitor intake and output Agree with assessment and plan as outlined above by Sara james PA-C and take the full responsibility of the care in the hospital Dr Mitch Phipps (2) CAD (coronary artery disease) Associated angina: with unspecified form of angina Coronary Disease- Associated Artery/Lesion type: [place] artery [place] vs. transplanted heart: [place] heart Qualified Code(s): I25.119 - Atherosclerotic heart disease of [place] coronary artery with unspecified angina pectoris
[2024-03-01 15:25] LABS: Prothrombin Time 11.3 Seconds (9.0-12.0)
[2024-03-01] MEDS ORDERED: MAGNESIUM HYDROXIDE SUSP 30 ML UDC PO PRN (15:44)
[2024-03-01] MEDS ORDERED: ENOXAPARIN 1 MG/KG SQ SCH (15:44)
[2024-03-01] MEDS ORDERED: ONDANSETRON INJ 2 MG/ML 2 ML VIAL IV PRN (15:44)
[2024-03-01] MEDS ORDERED: ALUMINUM/MAGNESIUM SUSP 30 ML UDC PO PRN (15:44)
--- NOTE | 2024-03-01 16:25 | Ultrasound Report ---
US venous doppler LE BI CLINICAL HISTORY: edema TECHNIQUE: Bilateral lower extremity real-time compression venous ultrasound with Color Doppler imagi ng. Utilizing real-time ultrasonic imaging multiple real time high-resolution ultrasonic images with compression and noncompression maneuvers of the deep venous system in addition to color doppler imagi ng were performed from the common femoral vein through the proximal calf veins. COMPARISON: None available at the time of this dictation. FINDINGS/IMPRESSION: No deep venous thrombus, there is normal compressibility of the deep venous system from the common fe moral vein through the proximal calf veins. No superficial venous thrombosis is identified. Soft tis cristian edema is seen. ACT 112: Negative or not required by law. Electronically signed by: Jared Jung M.D. 03/01/2024 4:24 PM
[2024-03-01] MEDS: HYDROCODONE/ACETAMOPHEN 5/325MG TAB PO SCH (16:40)
[2024-03-01] MEDS: POTASSIUM CHLORIDE CRTAB 20 MEQ TABCR PO SCH (16:41)
[2024-03-01] MEDS: FUROSEMIDE 40 MG/4 ML VIAL IV SCH (16:42)
[2024-03-01] MEDS: WARFARIN SOD 7.5 MG TAB PO SCH (16:46)
[2024-03-01] MEDS: SPIRONOLACTONE 12.5 MG TAB PO SCH (16:47)
[2024-03-01] MEDS: ENOXAPARIN INJ 60 MG/0.6 ML SYR SQ SCH (16:48)
[2024-03-01] MEDS: POLYETHYLENE (MIRALAX) 17 GM PACK PO PRN (18:15)
[2024-03-01] MEDS: traZODone HCL 100 MG TAB PO SCH (20:37)
[2024-03-01] MEDS: busPIRone 5 MG TAB PO SCH (20:38)
--- OUTSIDE RECORDS SUMMARY | 2024-03-01 21:30 | External Medical Summary | Summary of Care ---
Author Name Unknown Organization [facility] Address [address] [place] [address] Phone [phone] Care Team Providers Care Foreman Shipping Department Name Role Phone Casey Rodgers MD Primary Care Provider + [phone] Reason for Visit * Reason Onset Date Comments No Show 02/24/2024 [facility] No Show Auto mation Encounter Details Date Type Department Care Team (Late st Contact Info) Description 02/24/2024 Telephone Cardiology, [facility] [address] [place] [address] Rhoda James, IVONNE [address] [place] [address] No Show ([place] No Show Automation) Allergies Active Allergy Reactions Criticality Noted Date Comments Chlorhexidine Itching 09/10/2020 Hydrochlorothiazide Other (Please comment) 02/26/2017 Caused pancreatitis Metronidazole 02/09/2017 Pill causes severe diarrhea Ondansetron Other (Please comment) High 03/04/2018 TAYLOR documented as of this encounter (statuses as of 02/24/2024) Medications Medication Sig Dispensed Refills Start Date End Date Status Calcium Carbonate-Vitamin D 500-125 MG-UNIT Oral Tablet Take by mouth daily. Act lola promethazine (PHENERGAN) 25 MG Tablet Take 1 Tablet by mouth every 6 hours as needed for Nausea. Active omeprazole (PRILOSEC) 20 MG CPDR Take 1 Capsule by mouth daily as needed. Active Centrum Silver 50+Women Oral Tablet Take by mouth daily. Acti ve Rizatriptan Benzoate 10 MG Oral Tablet Take 1 Tablet by mouth as needed for Migraine. Active traZODone HCl 100 MG Oral Tablet (Desyrel) Take 1 Tablet by mouth at bedtime. Active Atorvastatin Calcium 10 MG Oral Tablet (Lipitor) TAKE 1 TABLET BY MOUTH ONCE DAILY IN THE MORNING 3 Active Aspirin Low Dose 81 MG Oral Tablet Delayed Release TAKE 1 TABLET BY MOUTH ONCE DAILY IN THE MORNING 3 Active Metoprolol Succinate ER 25 MG Oral Tablet Extended Release 24 Hour (toPROL XL)Indications:Par oxysmal atrial fibrillation (HCC),Localized edema Take 1 Tablet by mouth in the morning. 90 Tablet 3 3 Active Nitroglycerin 0.4 MG Sublingual Tablet Sublingual (Nitrostat)Indicat ions:CAD (coronary artery disease) Place 1 Tablet under the tongue every 5 minutes as needed for Pain, Chest. up to 3 doses in 15 minutes 25 Tablet 5 3 Active Additional Information Patient not taking.Reported on 07/08/2023 Nitroglycerin 0.4 MG/HR Transdermal Patch 24 Hour (Nitro-Dur) Place on patch daily in the morning. Remove at bedtime. 90 Patch 3 3 Active busPIRone HCl 5 MG Oral Tablet (Buspar) Take 1 Tablet by mouth every morning. 4 Active guaiFENesin ER 600 MG Oral Tablet Extended Release 12 Hour (Mucinex) Take 1 Tablet by mouth in the morning. Active Naloxone HCl 4 MG/0.1ML Nasal Liquid (Narcan Nasal) PLEASE SEE ATTACHED FOR DETAILED DIRECTIONS 4 Active predniSONE 20 MG Oral Tablet (Deltasone) TAKE 2 TABLETS BY MOUTH ONCE DAILY FOR 4 DAYS, 1 TAB X4 DAYS, THEN HALF TAB X4 DAYS 4 Active Heparin Na (Pork) Lock Flsh PF 100 UNIT/ML Intravenous Solution Inject 3 mL intravenously as needed for Other (PICC Line). 4 Active Alteplase 2 MG Injection Solution Reconstituted (Cathflo Activase) Inject 2 mg intravenously as needed (line occlusion ). 4 Active Docusate Sodium 100 MG Oral Capsule (Colace) Take 1 Capsule by mouth in the morning and 1 Capsule before bedtime. 4 Active Polyethylene Glycol 3350 17 GM Oral Packet (Miralax) Take 1 Packet by mouth daily as needed for Constipation. 4 Active Sennosides-Docusat e Sodium 8.6-50 MG Oral Tablet (Senokot-S) Take 1 Tablet by mouth 2 times a day as needed for Constipation. 4 Active Bisacodyl 5 MG Oral Tablet Delayed Release (Dulcolax) Take 1 Tablet by mouth daily as needed for Constipation. 30 Tablet 4 Active Bisacodyl 10 MG Rectal Suppository (Dulcolax) Unwrap and administer 1 Suppository into the rectum daily as needed for Constipation. 12 Suppository Active Acetaminophen 325 MG Oral Tablet (Tylenol) Take 2 Tablets by mouth every 6 hours as needed for Fever >38C(100.5F) or Pain, Mild. 4 Active HYDROcodone-Acetam inophen 5-325 MG Oral Tablet Take 1 Tablet by mouth every 6 hours as needed for Pain, Moderate. 90 Tablet 4 Active Additional Information Patient not taking.Reported on 10/07/2023 Nicotine 14 MG/24HR Transdermal Patch 24 Hour (Nicoderm CQ) Place 1 Patch topically on the skin daily. Active Nitroglycerin 0.1 MG/HR Transdermal Patch 24 Hour (Nitro-Dur) Place 1 Patch topically on the skin in the morning. Active oxyCODONE HCl 10 MG Oral Tablet (Roxicodone) Take 1 Tablet by mouth every 4 hours as needed. Active Prochlorperazine Maleate 10 MG Oral Tablet (Compazine) Take 1 Tablet by mouth every 6 hours as needed for Nausea. Active Warfarin Sodium 5 MG Oral Tablet (Coumadin) Take 1 to 1 and 1/2 tablets by mouth daily as directed by anticoagulation clinic 30 Tablet 5 4 Active documented as of this encounter (statuses as of 02/24/2024) Active Problems Problem Noted Date Diagnosed Date PICC (peripherally inserted central catheter) in place 09/30/2023 Surgical site infection 09/30/2023 Malnutrition of moderate degree 09/23/2023 Nonrheumatic mitral valve regurgitation 12/31/19 Paroxysmal atrial [...] as of this encounter (statuses as of 02/24/2024) Social History Tobacco Use Types Packs/Day Years Used Date Smoking Tobacco: Every Day Cigarettes 0.8 58.5 Started: 09/04/1965 Smokeless Tobacco: Never Alcohol Use [...] encounter Miscellaneous Notes * Telephone Encounter - [place], No Show - 02/24/2024 7:21 PM EDT Dear Alexia Campos, Looks like you missed an appointment with RHODA JAMES on 02/17/2024 at 03:00 PM. If you haven't already rescheduled, you have a couple of options: Reschedule in [email or web address] Call us at [phone] Can't make a future appointment? Cancel and let someone else have your spot! It's easy to do via [employer] or by calling us. Thanks for trusting [facility] with your care. We hope to see you back in our office soon. Sincerely, RHODA JAMES documented in this encounter Plan of Treatment Upcoming Encounters Date Type Department Care Team (Late st Contact Info) Description 03/01/2024 7:15 AM EDT Laboratory Lab Mobile Phlebotomy [facility] [email or web address] [address] [facility], Gml Mobile Home Draw [email or web address] [place] [address] 03/02/2024 6:00 AM EDT Anticoagulation Centralized Clinical Pharmacy Services, Alina James [address] [place] [address] [place] [address] [facility], [address] [place] [address] Health Maintenance Due Date Last Done Comments Depression Screening 1957 Albumin/Creatinine Ratio 1962 Hepatitis C Screening 1962 Lung Cancer Screening 1994 Zoster Vaccines (1 of 2) 1994 DXA Scan 12/26/2021 12/26/2014 COVID-19 Vaccine (3 season) 2024 07/05/2020, 07/05/2020, 06/07/2020, Additional history exists Influenza Vaccine (FLU shot) (#1) 2024 02/05/2023 GFR 10/31/2024 11/01/2023, 10/08, 10/18/2023, Additional history exists DTap/Tdap Vaccines (2 - Td or Tdap) 10/29/2031 10/28/2021 Pneumococcal Vaccine: 65+ Years Completed 03/15/2019, 03/04/2016 HPV (Gardasil) Vaccine Aged Out No lo nger eligible based on patient's age to complete this topic Hepatitis B Vaccine Aged Out No longe r eligible based on patient's age to complete this topic MENINGOCOCCAL (MENACTRA/MENVEO) Aged Out No longer eligible based on patient's age to complete this topic documented as of this encounter Medical Devices Implanted Type Area Management Internship Device Identifier Shelf Expiration Date Model / Serial / Lot Dbx 10 [id number] - [id number] - [id number] Implanted:Qty : 1 on 01/11/2015 by Colin Krause MD at [place] [facility] [place] Tissue - Human N/A: Spine Lumbar MUSCULOSKELETAL TRANSPLANT FND 08/18/2016 [id number] / [id number] / Dbx 10 [id number] - [id number] - [id number] Implanted:Qty : 1 on 01/11/2015 by Colin Krause MD at [place] [facility] [place] Tissue - Human N/A: Spine Lumbar MUSCULOSKELETAL TRANSPLANT FND 08/18/2016 046485 / [id number] / Chip Cancellous 30cc [id number] - [id number] Implanted:Qty : 1 on 04/30/2017 by Colin Krause MD at [place] [facility] [place] Tissue - Human N/A: Spine Lumbar MUSCULOSKELETAL TRANSPLANT FND 01/20/2020 [id number] / / Chip Cancellous 90cc [id number] - [id number] Implanted:Qty : 1 on 04/30/2017 by Colin Krause MD at [place] [facility] [place] Tissue - Human N/A: Spine Lumbar MUSCULOSKELETAL TRANSPLANT FND 01/29/2018 [id number] / / [id number] Straight [id number] Cocr - [id number] Implanted:Qty : 2 on 01/11/2015 by Colin Krause MD at [place] [facility] [place] N/A: Spine Lumbar JNJ : DEPUY SPINE [id number] / / Screw 6x40 Poly Si [id number] - [id number] Implanted:Qty : 1 on 01/11/2015 by Colin Krause MD at [place] [facility] [place] N/A: Spine Lumbar JNJ : ETHICON [employer]ATIONS [id number] / / Screw 6x40 Ti Uni [id number] - [id number] Implanted:Qty : 8 on 01/11/2015 by Colin Krause MD at [place] [facility] [place] N/A: Spine Lumbar JNJ : ETHICON CARDIOVATIONS [id number] / / Screw 5x40 Ti Uni [id number] - [id number] Implanted:Qty : 2 on 01/11/2015 by Colin Krause MD at [place] [facility] [place] N/A: Spine Lumbar JNJ : ETH[employer]ON [employer]ATIONS [id number] / / Screw 6x45 Ti Uni [id number] - [id number] Implanted:Qty : 6 on 01/11/2015 by Colin Krause MD at [place] [facility] [place] N/A: Spine Lumbar JNJ : ETHICON CARDIOVATIONS [id number] / / Expedium Ti Sfx 5.5 Lat A2 - [id number] Implanted:Qty : 1 on 01/11/2015 by Colin Krause MD at [place] [facility] [place] N/A: Spine Lumbar JNJ : ETHICON C[employer]ATIONS [id number] / / Screw Implanted:Qty : 2 on 04/30/2017 by Colin Krause MD at [place] [facility] [place] N/A: Spine Lumbar SYNTHES : DEPUY [id number] / / Screw Implanted:Qty : 2 on 04/30/2017 by Colin Krause MD at [place] [facility] [place] N/A: Spine Lumbar SYNTHES : DEPUY [id number] / / Cage Implanted:Qty : 4 on 04/30/2017 by Colin Krause MD at [place] [facility] [place] N/A: Spine Lumbar SYNTHES : DEPUY [id number] / / Connector 5.5 Du [id number] - [id number] Implanted:Qty : 4 on 04/30/2017 by Colin Krause MD at [place] [facility] [place] N/A: Spine Lumbar JNJ : ETHICON CARDIOVATIONS [id number] / / Uriel 120mm [id number] - [id number] Implanted:Qty : 2 on 04/30/2017 by Colin Krause MD at [place] [facility] [place] N/A: Spine Lumbar JNJ : ETHICON C[employer]ATIONS [id number] / / Screw Set Sng Inner [id number] - [id number] Implanted:Qty : 6 on 04/30/2017 by Colin Krause MD at [place] [facility] [place] N/A: Spine Lumbar JNJ : ETHICON CARDIOVATIONS [id number] / / Expedium Ti Sfx 5.5 Lat A6 - [id number] Implanted:Qty : 2 on 04/30/2017 by Colin Krause MD at [place] [facility] [place] N/A: Spine Lumbar JNJ : ETHICON [employer]ATIONS [id number] / / Screw 7x45 Ti Uni [id number] - [id number] Implanted:Qty : 4 on 01/11/2015 by Cloin Krause MD at [place] [facility] [place] Explanted:Qty : 2 on 04/30/2017 at [place] [facility] [place] N/A: Spine Lumbar JNJ : DEPUY SPINE [id number] / / Screw Set Sng Inner [id number] - [id number] Implanted:Qty : 20 on 01/11/2015 by Colin Krause MD at [place] [facility] [place] Explanted:Qty : 4 on 04/30/2017 at [place] [facility] [place] N/A: Spine Lumbar JNJ : DEPUY SPINE [id number] / / Graft Infuse Bone Lg [id number] - [id number] Implanted:Qty : 1 on 04/30/2017 by Colin Krause MD at [place] [facility] [place] N/A: Spine Lumbar [employer] : NEURO CARE 06/10/2018 [id number] / / documented as of this encounter Advance Directives * No Code (Latest Code Status on File) Date Activated Date Inactivated Comments 09/22/2023 6:31 PM 09/30/2023 8:41 PM This order r eflects the patients wishes and were consensually agreed upon. Question Answer Comments Discussion of Advance Directives occurred with: Patient * Full Code Date Activated Date Inactivated Comments 04/30/2017 7:41 AM 05/04/2017 4:50 PM This order reflects the patients wishes and were consensually agreed upon. * Full Code Date Activated Date Inactivated Comments 01/11/2015 8:11 AM 01/18/2015 8:08 PM This order re flects the patients wishes and were consensually agreed upon. Question Answer Comments Discussion of Advance Directives occurred with: Patient Does the patient have a Living Will? No Does the patient have Health Care Power of Attor shubham? No Care Teams Foreman Shipping Department Relationship Specialty Start Date End Date Casey Rodgers MD [address] [place] [address] PCP - General Family Medicine 09/04/14 documented as of this encounter
--- OUTSIDE RECORDS SUMMARY | 2024-03-01 21:31 | External Medical Summary | Summary of Care ---
Author Name Unknown Organization [facility] Address [address] [place] [address] Phone [phone] Care Team Providers Care Workday Director Name Role Phone Casey Rodgers MD Primary Care Provider + [phone] Reason for Visit * Reason Comments Dosage Adjustment Via Phone (anticoag Cl inic) Encounter Details Date Type Department Care Team (Late st Contact Info) Description 12/31/2023 6:00 PM EDT Anticoagulation Centralized Clinical Pharmacy Services, Alina James [address] [place] [address] [place] [address] [facility], [address] [place] [address] Paroxysmal atrial fibrillation (HCC)* Allergies Active Allergy Reactions Criticality Noted Date Comments Chlorhexidine Itching 09/10/2020 Hydrochlorothiazide Other (Please comment) 02/26/2017 Caused pancreatitis Metronidazole 02/09/2017 Pill causes severe diarrhea Ondansetron Other (Please comment) High 03/04/2018 TAYLOR documented as of this encounter (statuses as of 12/31/2023) Medications Medication Sig Dispensed Refills Start Date [...] as of this encounter (statuses as of 12/31/2023) Active Problems Problem Noted Date Diagnosed Date [...] as of this encounter (statuses as of 12/31/2023) Social History Tobacco Use Types Packs/Day Years Used Date Smoking Tobacco: Every Day Cigarettes 0.8 58.3 Started: [birth year]/04/1966 Smokeless Tobacco: Never Alcohol Use [...] as of this encounter Progress Notes * Shwetha Holder, metal window frame maker - 12/31/2023 1:18 PM EDT Contacts Contact Date/Time Type Contact Phone/Fax 12/31/2023 01:15 PM EDT Phone (Outgoing) Alexia Campos (Self) [phone] (M) Spoke to Patient Subjective Patient Findings Negatives: Signs/symptoms of bleeding, Change in health, Change in activity, Upcoming invasive procedure, Missed doses, Extra doses, Change in medications, Change in diet/appetite, Bruising Advised patient to contact Anticoagulation Clinic if any unusual bruising or bleeding, recent illness, changes in medication, or questions/concerns. PT/INR results, Coumadin dose instructions, and next PT/INR date communicated as noted by Pharmacist: Yes SHWETHA HOLDER CPhT 12/31/2023, 1:18 PM * Delmy Ritchie RPh - 12/31/2023 1:12 PM EDT Images from the original note were not included. Coumadin Clinic (region specific) Objective Current Warfarin Dose As of 12/31/2023 Warfarin maintenance plan: 7.5 mg (5 mg x 1.5) every Mon, Wed, Fri; 5 mg (5 mg x 1) all other days INR Result As of 12/31/2023 INR goal: 2.0-3.0 INR used for dosin.2 (12/31/2023) Assessment & Plan Warfarin Plan As of 12/31/2023 Full warfarin instructions: 12/30: 15 mg; Otherwise 7.5 mg every Mon, Wed, Fri; 5 mg all other days Next INR check: 01/14/2024 Repeat PT/INR in 2 week(s) Weekly dose: not changed Additional Dosing Information: Description GML WF ([facility] GML) w/ Tech to contact patient with dose instructions as noted. Delmy Ritchie RPh 12/31/2023, 1:12 PM documented in this encounter Plan of Treatment Upcoming Encounters Date Type Department Care Team (Late st Contact Info) Description 01/14/2024 7:00 AM EDT Laboratory Lab Mobile Phlebotomy [facility] [address] [place] [address] [facility], Gml Mobile Home Draw [address] [place] [address] 02/17/2024 3:00 PM EDT Office Visit Cardiology [address] [place] [address] Rhiannon Leal PA-C [address] [place] [address] Health Maintenance Due Date Last Done Comments Depression Screening 1956 Albumin/Creatinine Ratio 1962 Hepatitis C Screening 1962 Lung Cancer Screening 1994 Zoster Vaccines (1 of 2) 1994 DXA Scan 12/26/2021 12/26/2014 COVID-19 Vaccine (3 - season) 2023 07/05/2020, 07/05/2020, 06/07/2020, Additional history exists Influenza Vaccine (FLU shot) (#1) 2024 02/05/2023 GFR 10/31/2024 11/01/2023, 10/08, 10/18/2023, Additional history exists DTaP,Tdap,and Td Vaccines (2 - Td or Tdap) 10/29/2031 [...] this encounter Medical Devices Implanted Type Area Rotary Machine Operator Device Identifier Shelf Expiration Date Model / Serial / Lot Dbx 10cc [id number] - [id number] - [id number] Implanted:Qty : 1 on 01/11/2015 by Colin Krause MD at [place] [facility] [place] Tissue - Human N/A: Spine Lumbar MUSCULOSKELETAL TRANSPLANT FND 08/18/2016 [id number] / [id number] / Dbx [facility] [id number] - [id number] - [id number] Implanted:Qty : 1 on 01/11/2015 by Colin Krause MD at [place] [facility] [place] Tissue - Human N/A: Spine Lumbar MUSCULOSKELETAL TRANSPLANT FND 08/18/2016 480538 / [id number] / Chip Cancellous 30cc [id number] - [id number] Implanted:Qty : 1 on 04/30/2017 by Colin Krause MD at [place] [facility] [place] Tissue - Human N/A: Spine Lumbar MUSCULOSKELETAL TRANSPLANT FND 01/20/2020 [id number] / / Chip Cancellous 90cc [id number] - [id number] Implanted:Qty : 1 on 04/30/2017 by Colin Krause MD at [place] [facility] [place] Tissue - Human N/A: Spine Lumbar MUSCULOSKELETAL TRANSPLANT FND 01/29/2018 [id number] / / Viper2 Straight [id number] Cocr - [id number] Implanted:Qty : 2 on 01/11/2015 by Colin Krause MD at [place] [facility] [place] N/A: Spine Lumbar JNJ : DEPUY SPINE [id number] / / Screw 6x40 Poly Si [id number] - [id number] Implanted:Qty : 1 on 01/11/2015 by Colin Krause MD at [place] [facility] [place] N/A: Spine Lumbar JNJ : ETHICON CARDIOVATIONS [id number] / / Screw 6x40 Ti Uni [id number] - [id number] Implanted:Qty : 8 on 01/11/2015 by Colin Krause MD at [place] [facility] [place] N/A: Spine Lumbar JNJ : ETHICON CARDIOVATIONS [id number] / / Screw 5x40 Ti Uni [id number] - [id number] Implanted:Qty : 2 on 01/11/2015 by Colin Krause MD at [place] [facility] [place] N/A: Spine Lumbar JNJ : ETHICON CARDIOVATIONS [id number] / / Screw 6x45 Ti Uni [id number] - [id number] Implanted:Qty : 6 on 01/11/2015 by Colin Krause MD at [place] [facility] [place] N/A: Spine Lumbar JNJ : ETHICON CARDIOVATIONS [id number] / / Expedium Ti Sfx 5.5 Lat A2 - [id number] Implanted:Qty : 1 on 01/11/2015 by Colin Krause MD at [place] [facility] [place] N/A: Spine Lumbar JNJ : ETHICON CARDIOVATIONS [id number] / / Screw Implanted:Qty : 2 on 04/30/2017 by Colin Krause MD at [place] [facility] [place] N/A: Spine Lumbar SYNTHES : DEPUY [id number] / / Screw Implanted:Qty : 2 on 04/30/2017 by Colin Krause MD at [place] [facility] [place] N/A: Spine Lumbar SYNTHES : DEPUY [id number] / / Cage Implanted:Qty : 4 on 04/30/2017 by Colin Krause MD at [place] [facility] [place] N/A: Spine Lumbar SYNTHES : DEPUY [id number] / / Connector 5.5 Du [id number] - [id number] Implanted:Qty : 4 on 04/30/2017 by Colin Krause MD at [place] [facility] [place] N/A: Spine Lumbar JNJ : ETHICON CARDIOVATIONS [id number] / / Uriel 120mm [id number] - [id number] Implanted:Qty : 2 on 04/30/2017 by Colin Krause MD at [place] [facility] [place] N/A: Spine Lumbar JNJ : ETHICON CARDIOVATIONS [id number] / / Screw Set Sng Inner [id number] - [id number] Implanted:Qty : 6 on 04/30/2017 by Colin Krause MD at [place] [facility] [place] N/A: Spine Lumbar JNJ : ETHICON CARDIOVATIONS [id number] / / Expedium Ti Sfx 5.5 Lat A6 - [id number] Implanted:Qty : 2 on 04/30/2017 by Colin Krause MD at [place] [facility] [place] N/A: Spine Lumbar JNJ : ETHICON CARDIOVATIONS [id number] / / Screw 7x45 Ti Uni [id number] - [id number] Implanted:Qty : 4 on 01/11/2015 by Colin Krause MD at [place] [facility] [place] Explanted:Qty : 2 on 04/30/2017 at [place] [facility] [place] N/A: Spine Lumbar JNJ : DEPUY SPINE [id number] / / Screw Set Sng Inner [id number] - [id number] Implanted:Qty : 20 on 01/11/2015 by Colin Krause MD at [place] [facility] [place] Explanted:Qty : 4 on 04/30/2017 at [place] [facility] [place] N/A: Spine Lumbar JNJ : DEPUY SPINE [id number] / / Graft Infuse Bone Lg [id number] - [id number] Implanted:Qty : 1 on 04/30/2017 by Colin Krause MD at [place] [facility] [place] N/A: Spine Lumbar [employer] : NEURO CARE 06/10/2018 [id number] / / documented as of this encounter Visit Diagnoses Diagnosis Paroxysmal atrial fibrillation (HCC)- Primary Atrial fibrillation documented in this encounter Advance Directives * No Code [...] Power of Attor shubham? No Care Teams Workday Director Relationship Specialty Start Date End Date Casey Rodgers MD [address] [place] [address] PCP - General Family Medicine 09/04/14 documented as of this encounter
--- OUTSIDE RECORDS SUMMARY | 2024-03-01 21:31 | External Medical Summary | Summary of Care ---
Author Name Unknown Organization [facility] Address [address] [place] [address] Phone [phone] Care Team Providers Care Hospital Account Liaison Name Role Phone Casey Rodgers MD Primary Care Provider + [phone] Reason for Visit * Reason Comments Dosage Adjustment Via Phone (anticoag Cl inic) Encounter Details Date Type Department Care Team (Late st Contact Info) Description 2023 6:00 AM EDT Anticoagulation Centralized Clinical Pharmacy Services, Alina James [address] [place] [address] [place] [address] [facility], [address] [place] [address] Paroxysmal atrial fibrillation (HCC)* Allergies Active Allergy Reactions Criticality Noted Date Comments Chlorhexidine Itching 09/10/2020 Hydrochlorothiazide Other (Please comment) 02/26/2017 Caused pancreatitis Metronidazole 02/09/2017 Pill causes severe diarrhea Ondansetron Other (Please comment) High 03/04/2018 TAYLOR documented as of this encounter (statuses as of 2023) Medications Medication Sig Dispensed Refills Start Date [...] as of this encounter (statuses as of 2023) Active Problems Problem Noted Date Diagnosed Date [...] as of this encounter (statuses as of 2023) Social History Tobacco Use Types Packs/Day Years [...] as of this encounter Progress Notes * Alix Olson, unit secretary - 2023 10:39 AM EDT Contacts Type Contact Phone/Fax 2023 10:36 AM EDT Phone (Outgoing) Alexia Campos (Self) [phone] (M) Left Message Subjective Advised patient to contact Anticoagulation Clinic if any unusual bruising or bleeding, recent illness, changes in medication, or questions/concerns. PT/INR results, Coumadin dose instructions, and next PT/INR date communicated as noted by Pharmacist: Yes BRIAN SIMON 2023, 10:39 AM * Delmy Ritchie RPh - 2023 10:35 AM EDT Coumadin Clinic (region specific) Objective Current Warfarin Dose As of 2023 Warfarin maintenance plan: 7.5 mg (5 mg x 1.5) every Mon, Wed, Fri; 5 mg (5 mg x 1) all other days INR Result As of 2023 INR goal: 2.0-3.0 INR used for dosin.4 (12/17/2023) Assessment & Plan Warfarin Plan As of 2023 Full warfarin instructions: 7.5 mg every Mon, Wed, Fri; 5 mg all other days No change documented: Delmy Ritchie RPh Next INR check: 12/31/2023 Repeat PT/INR in 2 week(s) Weekly dose: not changed Additional Dosing Information: Description GML WF ([facility] GML) w/ Tech to contact patient with dose instructions as noted. Delmy Ritchie RPh 2023, 10:35 AM documented in this encounter Plan of Treatment Upcoming Encounters Date Type Department Care Team (Late st Contact Info) Description 02/17/2024 3:00 PM EDT Office Visit Cardiology [address] [place] [address] Rhiannon Leal PA-C [address] [place] [address] Health Maintenance Due Date Last Done Comments [...] encounter Medical Devices Implanted Type Area Director Business Development Device Identifier Shelf Expiration Date Model / Serial / Lot Dbx 10 [id number] - [id number] - [id number] Implanted:Qty : 1 on 01/11/2015 by Colin Krause MD at OR [facility] [place] Tissue - Human N/A: Spine Lumbar MUSCULOSKELETAL TRANSPLANT FND 08/18/2016 [id number] / [id number] / Dbx [facility] [id number] - [id number] - [id number] Implanted:Qty : 1 on 01/11/2015 by Colin Krause MD at OR [facility] [place] Tissue - Human N/A: Spine Lumbar MUSCULOSKELETAL TRANSPLANT FND 08/18/2016 [id number] / [id number] / Chip Cancellous 30cc [id number] - [id number] Implanted:Qty : 1 on 04/30/2017 by Colin Krause MD at OR [facility] [place] Tissue - Human N/A: Spine Lumbar MUSCULOSKELETAL TRANSPLANT FND 01/20/2020 [id number] / / Chip Cancellous 90cc [id number] - [id number] Implanted:Qty : 1 on 04/30/2017 by Colin Krause MD at OR [facility] [place] Tissue - Human N/A: Spine Lumbar MUSCULOSKELETAL TRANSPLANT FND 01/29/2018 [id number] / / Viper2 Straight [id number] Cocr - [id number] Implanted:Qty : 2 on 01/11/2015 by Colin Krause MD at OR [facility] [place] N/A: Spine Lumbar JNJ : DEPUY SPINE [id number] / / Screw 6x40 Poly Si [id number] - [id number] Implanted:Qty : 1 on 01/11/2015 by Colin Krause MD at OR [facility] [place] N/A: Spine Lumbar JNJ : ETHICON C[employer]ATIONS [id number] / / Screw 6x40 Ti Uni [id number] - [id number] Implanted:Qty : 8 on 01/11/2015 by Colin Krause MD at OR [facility] [place] N/A: Spine Lumbar JNJ : ETHICON CARDIOVATIONS [id number] / / Screw 5x40 Ti Uni [id number] - [id number] Implanted:Qty : 2 on 01/11/2015 by Colin Krause MD at OR [facility] [place] N/A: Spine Lumbar JNJ : ETHICON CARD[employer]ATIONS [id number] / / Screw 6x45 Ti Uni [id number] - [id number] Implanted:Qty : 6 on 01/11/2015 by Colin Krause MD at OR [facility] [place] N/A: Spine Lumbar JNJ : ETHICON CARDIOVATIONS [id number] / / Expedium Ti Sfx 5.5 Lat A2 - [id number] Implanted:Qty : 1 on 01/11/2015 by Colin Krause MD at OR [facility] [place] N/A: Spine Lumbar JNJ : ETHICON CARDIOVATIONS [id number] / / Screw Implanted:Qty : 2 on 04/30/2017 by Colin Krause MD at OR [facility] [place] N/A: Spine Lumbar SYNTHES : DEPUY [id number] / / Screw Implanted:Qty : 2 on 04/30/2017 by Colin Krause MD at OR [facility] [place] N/A: Spine Lumbar SYNTHES : DEPUY 179 / / Cage Implanted:Qty : 4 on 04/30/2017 by Colin Krause MD at OR [facility] [place] N/A: Spine Lumbar SYNTHES : DEPUY [id number] / / Connector 5.5 Du [id number] - [id number] Implanted:Qty : 4 on 04/30/2017 by Colin Krause MD at OR [facility] [place] N/A: Spine Lumbar JNJ : ETHICON CARDIOVATIONS [id number] / / Urile 120mm [id number] - [id number] Implanted:Qty : 2 on 04/30/2017 by Colin Krause MD at OR [facility] [place] N/A: Spine Lumbar JNJ : ETHICON CARDIOVATIONS [id number] / / Screw Set Sng Inner [id number] - [id number] Implanted:Qty : 6 on 04/30/2017 by Colin Krause MD at OR [facility] [place] N/A: Spine Lumbar JNJ : ETHICON CARDIOVATIONS [id number] / / Expedium Ti Sfx 5.5 Lat A6 - [id number] Implanted:Qty : 2 on 04/30/2017 by Colin Krause MD at OR [facility] [place] N/A: Spine Lumbar JNJ : ETHICON CARDIOVATIONS [id number] / / Screw 7x45 Ti Uni [id number] - [id number] Implanted:Qty : 4 on 01/11/2015 by Colin Krause MD at OR [facility] [place] Explanted:Qty : 2 on 04/30/2017 at OR [facility] [place] N/A: Spine Lumbar JNJ : DEPUY SPINE [id number] / / Screw Set Sng Inner [id number] - [id number] Implanted:Qty : 20 on 01/11/2015 by Colin Krause MD at OR [facility] [place] Explanted:Qty : 4 on 04/30/2017 at OR [facility] [place] N/A: Spine Lumbar JNJ : DEPUY SPINE [id number] / / Graft Infuse Bone Lg [id number] - [id number] Implanted:Qty : 1 on 04/30/2017 by Colin Krause MD at OR [facility] [place] N/A: Spine Lumbar [employer] : NEURO CARE 06/10/2018 [id number] / / documented as of this encounter [...] 8:11 AM 01/18/2015 8:08 PM This order r eflects the patients wishes and were consensually agreed upon. Question Answer Comments Discussion of Advance Directives occurred with: Patient Does the patient have a Living Will? No Does the patient have Health Care Power of Attor shubham? No Care Teams Hospital Account Liaison Relationship Specialty Start Date End Date Casey Rodgers MD [address] [place] [address] PCP - General Family Medicine 09/04/14 documented as of this encounter
--- OUTSIDE RECORDS SUMMARY | 2024-03-01 21:31 | External Medical Summary ---
Author Name Unknown Address Unknown Organization [id number]:[facility] [place] [address] Laboratory Report Ordering Provider Test Date Status JUDICAROLINAANGEL 12/31/2023 08:25:00 Final Standing order for pt/inr. < br/>Please draw pt/inr every 1 to 4 weeks as requested
Results to [facility] Anticoagulation Clinic

Warfarin Therapy
INR: 2.0-3.0 conventional anticoagulation
INR: 2.5-3.5 high intensity anticoagulation Observation Date Value Abnormality Reference (Units ) Status PT 12/31/2023 08:25:00 15.1 11.6-15.2 (seconds) Final INR 12/31/2023 08:25:00 1.2 0.8-1.2 Final Performing Location [facility] [place] [address]
--- OUTSIDE RECORDS SUMMARY | 2024-03-01 21:31 | External Medical Summary | Summary of Care ---
Author Name Unknown Organization [facility] Address [address] [place] [address] Phone [phone] Care Team Providers Care Aoc Plans Intelligence Officer Chief Name Role Phone Casey Rodgers MD Primary Care Provider [phone] Reason for Visit * Reason Onset Date Comments Referral 10/22/2023 Encounter Details Date Type Department Care Team (Late st Contact Info) Description 10/22/2023 Telephone Centralized Clinical Pharmacy Services, Alina James [address] [place] [address] [place] [address] Agc5, Pharmacist Infectious Disease [address] [place] [address] Referral Allergies Active Allergy Reactions Criticality Noted Date Comments Chlorhexidine Itching 09/10/2020 Hydrochlorothiazide Other (Please comment) 02/26/2017 Caused pancreatitis Metronidazole 02/09/2017 Pill causes severe diarrhea Ondansetron Other (Please comment) High 03/04/2018 TAYLOR documented as of this encounter (statuses as of 01/21/2024) Medications Medication Sig Dispensed Refills Start Date End Date Status Calcium Carbonate-Vitamin D 500-125 MG-UNIT Oral Tablet Take by mouth daily. Active promethazine (PHENERGAN) 25 MG Tablet Take 1 Tablet by mouth every 6 hours as needed for Nausea. Active omeprazole (PRILOSEC) 20 MG CPDR Take 1 Capsule by mouth daily as needed. Active Centrum Silver 50+Women Oral Tablet Take by mouth daily. Active Rizatriptan Benzoate 10 MG Oral Tablet Take 1 Tablet by mouth as needed for Migraine. Active traZODone HCl 100 MG Oral Tablet (Desyrel) Take 1 Tablet by mouth at bedtime. Active Atorvastatin Calcium 10 MG Oral Tablet (Lipitor) TAKE 1 TABLET BY MOUTH ONCE DAILY IN THE MORNING 11/10/2022 Active Aspirin Low Dose 81 MG Oral Tablet Delayed Release TAKE 1 TABLET BY MOUTH ONCE DAILY IN THE MORNING 11/10/2022 Active Metoprolol Succinate ER 25 MG Oral Tablet Extended Release 24 Hour (toPROL XL)Indications:Par oxysmal atrial fibrillation (HCC),Localized edema Take 1 Tablet by mouth in the morning. 90 Tablet 3 12/17/2022 Active Nitroglycerin 0.4 MG Sublingual Tablet Sublingual (Nitrostat)Indicat ions:CAD (coronary artery disease) Place 1 Tablet under the tongue every 5 minutes as needed for Pain, Chest. up to 3 doses in 15 minutes 25 Tablet 5 02/26/2023 Active Additional Information Patient not taking.Reported on 07/08/2023 Nitroglycerin 0.4 MG/HR Transdermal Patch 24 Hour (Nitro-Dur) Place on patch daily in the morning. Remove at bedtime. 90 Patch 3 04/05/2023 Active busPIRone HCl 5 MG Oral Tablet (Buspar) Take 1 Tablet by mouth every morning. 07/07/2023 Active guaiFENesin ER 600 MG Oral Tablet Extended Release 12 Hour (Mucinex) Take 1 Tablet by mouth in the morning. Active Naloxone HCl 4 MG/0.1ML Nasal Liquid (Narcan Nasal) PLEASE SEE ATTACHED FOR DETAILED DIRECTIONS 07/06/2023 Active predniSONE 20 MG Oral Tablet (Deltasone) TAKE 2 TABLETS BY MOUTH ONCE DAILY FOR 4 DAYS, 1 TAB X4 DAYS, THEN HALF TAB X4 DAYS 07/06/2023 Active Heparin Na (Pork) Lock Flsh PF 100 UNIT/ML Intravenous Solution Inject 3 mL intravenously as needed for Other (PICC Line). 09/30/2023 Active Alteplase 2 MG Injection Solution Reconstituted (Cathflo Activase) Inject 2 mg intravenously as needed (line occlusion ). 09/30/2023 Active Docusate Sodium 100 MG Oral Capsule (Colace) Take 1 Capsule by mouth in the morning and 1 Capsule before bedtime. 09/30/2023 Active Polyethylene Glycol 3350 17 GM Oral Packet (Miralax) Take 1 Packet by mouth daily as needed for Constipation. 09/30/2023 Active Sennosides-Docusat e Sodium 8.6-50 MG Oral Tablet (Senokot-S) Take 1 Tablet by mouth 2 times a day as needed for Constipation. 09/30/2023 Active Bisacodyl 5 MG Oral Tablet Delayed Release (Dulcolax) Take 1 Tablet by mouth daily as needed for Constipation. 30 Tablet 09/30/2023 Active Bisacodyl 10 MG Rectal Suppository (Dulcolax) Unwrap and administer 1 Suppository into the rectum daily as needed for Constipation. 12 Suppository 09/30/2023 Active Acetaminophen 325 MG Oral Tablet (Tylenol) Take 2 Tablets by mouth every 6 hours as needed for Fever >38C(100.5F) or Pain, Mild. 09/30/2023 Active HYDROcodone-Acetam inophen 5-325 MG Oral Tablet Take 1 Tablet by mouth every 6 hours as needed for Pain, Moderate. 90 Tablet 09/30/2023 Active Additional Information Patient not taking.Reported on [...] 6 hours as needed for Nausea. Active documented as of this encounter (statuses as of 01/21/2024) Active Problems Problem Noted Date Diagnosed Date [...] as of this encounter (statuses as of 01/21/2024) Social History Tobacco Use Types Packs/Day Years Used Date Smoking Tobacco: Every Day Cigarettes 0.8 58.4 Started: [birth year]/04/1966 Smokeless Tobacco: Never Alcohol Use [...] encounter Miscellaneous Notes * Telephone Encounter - [employer], [facility] - 10/22/2023 2:48 PM EDT Pharmacist Medication Therapy Management: Minimum frequency patient should be seen in person for medication management: as appropriate per clinical condition and patient status By my signature, I understand that my patient Alexia Campos will have her medication therapy managed by the [facility] Medication Therapy Disease Management [facility] ([facility]) per established policies, procedures, and protocols. I also certify that this referral may serve as an initiation of service for the management of drug therapy in the above noted patient. [facility] providers will be responsible for scheduling patient visits, obtaining appropriate laboratory studies, and adjusting medication management therapy per patient's need, in addition to those roles spelled out in the clinic policy, procedures, and drug management protocols. I understand that the service provided by the [facility] Clinic is voluntary and have informed patient that they can refuse the service at their discretion. I am aware that the [facility] Clinic will provide me with a copy of the patient encounter via my [email or web address]. I authorize the [facility] Clinic to carry out these activities on my behalf. I consider this program to be a necessary part of the patient's medical care. Nraa Jean MD Order Specific Questions Referral Priority Within 3 days (urgent) Where should this appointment be scheduled? [facility] Referring Provider Role: Primary Care Reason for Referral: Med Review. vancomycin documented in this encounter Plan of Treatment Upcoming Encounters Date Type Department Care Team (Late st Contact Info) Description 01/28/2024 7:05 AM EDT Laboratory Lab Mobile Phlebotomy [facility] [address] [place] [address] [facility], [facility] Mobile Home Draw [address] [place] [address] 01/31/2024 6:00 AM EDT Anticoagulation Centralized Clinical Pharmacy Services, Alina James [address] [place] [address] [place] [address] [place] [address] 02/17/2024 3:00 PM EDT Office Visit Cardiology [address] [place] [address] Rhiannon Leal PA-C [address] [place] [address] Health Maintenance Due Date Last Done Comments Depression Screening 1956 Albumin/Creatinine Ratio 1962 Hepatitis C Screening 1962 Lung Cancer Screening 1994 Zoster Vaccines (1 of 2) 1994 DXA Scan 12/26/2021 12/26/2014 COVID-19 Vaccine (3 - season) 2024 07/05/2020, 07/05/2020, 06/07/2020, Additional history [...] this encounter Medical Devices Implanted Type Area Clinical Psychiatrist Device Identifier Shelf Expiration Date Model / Serial / Lot Dbx 10cc [id number] - [id number] - [id number] Implanted:Qty : 1 on 01/11/2015 by Colin Krause MD at OR [facility] [place] Tissue - Human N/A: Spine Lumbar MUSCULOSKELETAL TRANSPLANT FND 08/18/2016 501297 / [id number] / Dbx 10cc 031546 - [id number] - [id number] Implanted:Qty : 1 on 01/11/2015 by Colin Krause MD at OR [facility] [place] Tissue - Human N/A: Spine Lumbar MUSCULOSKELETAL TRANSPLANT FND 08/18/2016 112985 / [id number] / Chip Cancellous 30cc [id number] - [id number] Implanted:Qty : 1 on 04/30/2017 by Colin Krause MD at OR [facility] [place] Tissue - Human N/A: Spine Lumbar MUSCULOSKELETAL TRANSPLANT FND 01/20/2020 [id number] / / Chip Cancellous 90cc [id number] - [id number] Implanted:Qty : 1 on 04/30/2017 by Colin Krause MD at OR [facility] [place] Tissue - Human N/A: Spine Lumbar MUSCULOSKELETAL TRANSPLANT FND 01/29/2018 483582 / / Viper2 Straight [id number] Cocr - [id number] Implanted:Qty : 2 on 01/11/2015 by Colin Krause MD at OR [facility] [place] N/A: Spine Lumbar JNJ : DEPUY SPINE [id number] / / Screw 6x40 Poly Si [id number] - [id number] Implanted:Qty : 1 on 01/11/2015 by Colin Krause MD at OR [facility] [place] N/A: Spine Lumbar JNJ : ETHICON CARDIOVATIONS [id number] / / Screw 6x40 Ti Uni [id number] - [id number] Implanted:Qty : 8 on 01/11/2015 by Colin Krause MD at OR [facility] [place] N/A: Spine Lumbar JNJ : ETH[employer]ON CARDIOVATIONS [id number] / / Screw 5x40 Ti Uni [id number] - [id number] Implanted:Qty : 2 on 01/11/2015 by Colin Krause MD at OR [facility] [place] N/A: Spine Lumbar JNJ : ETH[employer]ON CARDIOVATIONS [id number] / / Screw 6x45 Ti Uni [id number] - [id number] Implanted:Qty : 6 on 01/11/2015 by Colin Krause MD at OR [facility] [place] N/A: Spine Lumbar JNJ : ETH[employer]ON CARDIOVATIONS [id number] / / Expedium Ti Sfx 5.5 Lat A2 - [id number] Implanted:Qty : 1 on 01/11/2015 by Colin Krause MD at OR [facility] [place] N/A: Spine Lumbar JNJ : ETHICON CARDIOVATIONS [id number] / / Screw Implanted:Qty : 2 on 04/30/2017 by Colin Krause MD at OR [facility] [place] N/A: Spine Lumbar SYNTHES : DEPUY [id number] / / Screw Implanted:Qty : 2 on 04/30/2017 by Colin Krause MD at OR [facility] [place] N/A: Spine Lumbar SYNTHES : DEPUY 1797-270 / / Cage Implanted:Qty : 4 on 04/30/2017 by Colin Krause MD at OR [facility] [place] N/A: Spine Lumbar SYNTHES : DEPUY 1878-21-111 / / Connector 5.5 Du [id number] - [id number] Implanted:Qty : 4 on 04/30/2017 by Colin Krause MD at OR [facility] [place] N/A: Spine Lumbar JNJ : ETHICON CARDIOVATIONS [id number] / / Uriel 120mm [id number] - [id number] Implanted:Qty : 2 on 04/30/2017 by Colin Krause MD at OR [facility] [place] N/A: Spine Lumbar JNJ : ETHICON CARDIOVATIONS [id number] / / Screw Set Sng Inner [id number] - [id number] Implanted:Qty : 6 on 04/30/2017 by Colin Krause MD at OR [facility] [place] N/A: Spine Lumbar JNJ : ETH[employer]ON CARDIOVATIONS [id number] / / Expedium Ti Sfx 5.5 Lat A6 - [id number] Implanted:Qty : 2 on 04/30/2017 by Colin Krause MD at OR [facility] [place] N/A: Spine Lumbar JNJ : ETHICON CARDIOVATIONS [id number] / / Screw 7x45 Ti Uni [id number] - [id number] Implanted:Qty : 4 on 01/11/2015 by Colin Krause MD at OR [facility] [place] Explanted:Qty : 2 on 04/30/2017 at OR [facility] [place] N/A: Spine Lumbar JNJ : DEPUY SPINE [id number] / / Screw Set Sng Inner [id number] - [id number] Implanted:Qty : 20 on 01/11/2015 by Colin Krause MD at OR [facility] [place] Explanted:Qty : 4 on 04/30/2017 at OR [facility] [place] N/A: Spine Lumbar JNJ : DEPUY SPINE [id number] / / Graft Infuse Bone Lg [id number] - [id number] Implanted:Qty : 1 on 04/30/2017 by Colin Krause MD at OR [facility] [place] N/A: Spine Lumbar [employer] : NEURO CARE 06/10/2018 [id number] / / documented as of this encounter [...] Power of Attor shubham? No Care Teams Aoc Plans Intelligence Officer Chief Relationship Specialty Start Date End Date Casey Rodgers MD [address] [place] [address] PCP - General Family Medicine 09/04/14 documented as of this encounter
--- OUTSIDE RECORDS SUMMARY | 2024-03-01 21:31 | External Medical Summary ---
Author Name Unknown Address Unknown Organization K01:[facility] - [address] [facility] [address] Laboratory Report Ordering Provider Test Date Status JOAQUÍN LAU 02/23/2024 10:09:00 Final Standing order for pt/inr. < br/>Please draw pt/inr every 1 to 4 weeks as requested
Results to [facility] Anticoagulation [facility]

Warfarin Therapy
INR: 2.0-3.0 conventional anticoagulation
INR: 2.5-3.5 high intensity anticoagulation Observation Date Value Abnormality Reference (Units ) Status PT 02/23/2024 10:09:00 14.1 11.6-15.2 (seconds) Final INR 02/23/2024 10:09:00 1.1 0.8-1.2 Final Performing Location [facility] - [address] [place] [address]
--- OUTSIDE RECORDS SUMMARY | 2024-03-01 21:31 | External Medical Summary | Summary of Care ---
Author Name Unknown Organization [facility] Address [address] , [place] Care Team Providers Care Socially Responsible Investment Adviser Name Role Phone Casey Rodgers MD Primary Care Provider + [phone] Reason for Visit * Reason Onset Date Comments Other 10/15/2023 Encounter Details Date Type Department Care Team ([facility] st Contact Info) Description 10/15/2023 Telephone Pharmacy, [facility] [address] [facility] [place] [address] [facility] [address] [place] [address] Other Allergies Active Allergy Reactions Criticality Noted Date Comments Chlorhexidine Itching 09/10/2020 Hydrochlorothiazide Other (Please comment) 02/26/2017 Caused pancreatitis Metronidazole 02/09/2017 Pill causes severe diarrhea Ondansetron Other (Please comment) High 03/04/2018 TAYLOR documented as of this encounter (statuses as of 01/14/2024) Medications Medication Sig Dispensed Refills Start Date [...] as of this encounter (statuses as of 01/14/2024) Active Problems Problem Noted Date Diagnosed Date [...] as of this encounter (statuses as of 01/14/2024) Social History Tobacco Use Types Packs/Day Years [...] encounter Miscellaneous Notes * Telephone Encounter - Delmy Ritchie RPh - 10/15/2023 12:33 PM EDT LVM to [facility] for d/c info.Will follow up once dose confirmed. * Telephone Encounter - Matt Hameed CPhT - 10/15/2023 10:58 AM EDT Caller's name: Tracy Preferred call back number(OFFICE NUMBER FOR ): [phone] Reason for call: Received call from [facility], pt is admitted under their service today, requesting dirs/orders. Says they are going out on 10/17 for labs. Thank you, Matt Hameed CPhT Supervisor [employer] [facility] 10/15/2023,10:58 AM documented in this encounter Plan of Treatment Upcoming Encounters Date Type Department Care Team (Late st Contact Info) Description 01/17/2024 6:00 AM EDT Anticoagulation Centralized Clinical Pharmacy Services, Alina James [address] [place] [address] [place] [address] [facility], [address] [place] [address] 02/17/2024 3:00 PM EDT Office Visit Cardiology [address] [place] [address] Rhiannon Leal PA-Katelyn [address] [place] [address] Health Maintenance Due Date Last Done Comments [...] this encounter Medical Devices Implanted Type Area Steward/Stewardess Deck Device Identifier Shelf Expiration Date Model / Serial / Lot Dbx 10 [id number] - [id number] - [id number] Implanted:Qty : 1 on 01/11/2015 by Colin Krause MD at OR [facility] Tissue - Human N/A: Spine Lumbar MUSCULOSKELETAL TRANSPLANT FND 08/18/2016 259178 / [id number] / Dbx 10 253954 - [id number] - [id number] Implanted:Qty : 1 on 01/11/2015 by Colin Krause MD at OR [facility] Tissue - Human N/A: Spine Lumbar MUSCULOSKELETAL TRANSPLANT FND 08/18/2016 717081 / [id number] / Chip Cancellous 30cc [id number] - [id number] Implanted:Qty : 1 on 04/30/2017 by Colin Krause MD at OR [facility] Tissue - Human N/A: Spine Lumbar MUSCULOSKELETAL TRANSPLANT FND 01/20/2020 021383 / / Chip Cancellous 90cc [id number] - [id number] Implanted:Qty : 1 on 04/30/2017 by Colin Krause MD at OR [facility] Tissue - Human N/A: Spine Lumbar MUSCULOSKELETAL TRANSPLANT FND 01/29/2018 [id number] / / [id number] Straight [id number] Cocr - [id number] Implanted:Qty : 2 on 01/11/2015 by Colin Krause MD at OR [facility] N/A: Spine Lumbar JNJ : DEPUY SPINE [id number] / / Screw 6x40 Poly Si [id number] - [id number] Implanted:Qty : 1 on 01/11/2015 by Colin Krause MD at OR [facility] N/A: Spine Lumbar JNJ : ETHICON CARDIOVATIONS [id number] / / Screw 6x40 Ti Uni [id number] - [id number] Implanted:Qty : 8 on 01/11/2015 by Colin Krause MD at OR [facility] N/A: Spine Lumbar JNJ : ETHICON CARDIOVATIONS [id number] / / Screw 5x40 Ti Uni [id number] - [id number] Implanted:Qty : 2 on 01/11/2015 by Colin Krause MD at OR [facility] N/A: Spine Lumbar JNJ : ETHICON CARDIOVATIONS [id number] / / Screw 6x45 Ti Uni [id number] - [id number] Implanted:Qty : 6 on 01/11/2015 by Colin Krause MD at OR [facility] N/A: Spine Lumbar JNJ : ETHICON CARDIOVATIONS [id number] / / Expedium Ti Sfx 5.5 Lat A2 - [id number] Implanted:Qty : 1 on 01/11/2015 by Colin Krause MD at OR [facility] N/A: Spine Lumbar JNJ : ETHICON CARDIOVATIONS [id number] / / Screw Implanted:Qty : 2 on 04/30/2017 by Colin Krause MD at OR [facility] N/A: Spine Lumbar SYNTHES : DEPUY [id number] / / Screw Implanted:Qty : 2 on 04/30/2017 by Colin Krause MD at OR [facility] N/A: Spine Lumbar SYNTHES : DEPUY [id number] / / Cage Implanted:Qty : 4 on 04/30/2017 by Colin Krause MD at OR [facility] N/A: Spine Lumbar SYNTHES : DEPUY [id number] / / Connector 5.5 Du [id number] - [id number] Implanted:Qty : 4 on 04/30/2017 by Colin Krause MD at OR [facility] N/A: Spine Lumbar JNJ : ETHICON CARDIOVATIONS [id number] / / Uriel 120mm [id number] - [id number] Implanted:Qty : 2 on 04/30/2017 by Colin Krause MD at OR [facility] N/A: Spine Lumbar JNJ : ETHICON CARDIOVATIONS [id number] / / Screw Set Sng Inner [id number] - [id number] Implanted:Qty : 6 on 04/30/2017 by Colin Krause MD at OR [facility] N/A: Spine Lumbar JNJ : ETHICON CARDIOVATIONS [id number] / / Expedium Ti Sfx 5.5 Lat A6 - [id number] Implanted:Qty : 2 on 04/30/2017 by Colin Krause MD at OR [facility] N/A: Spine Lumbar JNJ : ETHICON CARDIOVATIONS [id number] / / Screw 7x45 Ti Uni [id number] - [id number] Implanted:Qty : 4 on 01/11/2015 by Colin Krause MD at OR [facility] Explanted:Qty : 2 on 04/30/2017 at OR [facility] N/A: Spine Lumbar JNJ : DEPUY SPINE [id number] / / Screw Set Sng Inner [id number] - [id number] Implanted:Qty : 20 on 01/11/2015 by Colin Krause MD at OR [facility] Explanted:Qty : 4 on 04/30/2017 at OR [facility] N/A: Spine Lumbar JNJ : DEPUY SPINE [id number] / / Graft Infuse Bone Lg [id number] - [id number] Implanted:Qty : 1 on 04/30/2017 by Colin Krause MD at OR [facility] N/A: Spine Lumbar MEDTRONIC : NEURO CARE 06/10/2018 [id number] / / documented as of this encounter [...] Power of Attor shubham? No Care Teams Socially Responsible Investment Adviser Relationship Specialty Start Date End Date Casey Rodgers MD [address] [place] [address] PCP - General Family Medicine 09/04/14 documented as of this encounter
--- OUTSIDE RECORDS SUMMARY | 2024-03-01 21:31 | External Medical Summary | Summary of Care ---
Author Name Unknown Organization [facility] Address [address] [place] [address] Phone [phone] Care Team Providers Care Otr Van Cdl Truck Driver Name Role Phone Casey Rodgers MD Primary Care Provider + [phone] Reason for Visit * Reason Comments Dosage Adjustment Via Phone (anticoag Cl inic) Encounter Details Date Type Department Care Team (Late st Contact Info) Description 01/17/2024 6:00 AM EDT Anticoagulation Centralized Clinical Pharmacy Services, Alina James [address] [place] [address] [place] [address] [facility], [address] [place] [address] Paroxysmal atrial fibrillation (HCC)* Allergies Active Allergy Reactions Criticality Noted Date Comments Chlorhexidine Itching 09/10/2020 Hydrochlorothiazide Other (Please comment) 02/26/2017 Caused pancreatitis Metronidazole 02/09/2017 Pill causes severe diarrhea Ondansetron Other (Please comment) High 03/04/2018 TAYLOR documented as of this encounter (statuses as of 01/17/2024) Medications Medication Sig Dispensed Refills Start Date [...] as of this encounter (statuses as of 01/17/2024) Active Problems Problem Noted Date Diagnosed Date [...] as of this encounter (statuses as of 01/17/2024) Social History Tobacco Use Types Packs/Day Years [...] this encounter Progress Notes * Shwetha Holder, trash collector truck driver - 01/17/2024 9:39 AM EDT Contacts Contact Date/Time Type Contact Phone/Fax 01/17/2024 09:35 AM EDT Phone (Outgoing) Alexia Campos (Self) [phone] (M) Spoke to Patient Subjective Patient Findings [...] noted by Pharmacist: Yes SHWETHA HOLDER CPhT 01/17/2024, 9:39 AM * Delym Ritchie RPh - 01/17/2024 9:06 AM EDT Images from the original note were not included. Coumadin Clinic (region specific) Objective Current Warfarin Dose As of 01/17/2024 Warfarin maintenance plan: 7.5 mg (5 mg x 1.5) every Mon, Wed, Fri; 5 mg (5 mg x 1) all other days INR Result As of 01/17/2024 INR goal: 2.0-3.0 INR used for dosin.1 (01/14/2024) Assessment & Plan Warfarin Plan As of 01/17/2024 Full warfarin instructions: 01/16: 12.5 mg; Otherwise 5 mg every Sun, Tue, Lela; 7.5 mg all other days Next INR check: 01/28/2024 Repeat PT/INR in 2 week(s) Weekly dose: increased Additional Dosing Information: Description GML WF ([facility] GML) w/ Tech to contact patient with dose instructions as noted. Delmy Ritchie RPh 01/17/2024, 9:06 AM documented in this encounter Plan of Treatment Upcoming Encounters Date Type Department Care Team (Late st Contact Info) Description 01/28/2024 7:05 AM EDT Laboratory Lab Mobile Phlebotomy [facility] [address] [place] [address] [facility], Gml Mobile Home Draw [address] [place] [address] 02/17/2024 3:00 PM EDT Office Visit Cardiology [address] [place] [address] Rhiannon Leal PA-C [address] [place] [address] Health Maintenance Due Date Last Done Comments [...] this encounter Medical Devices Implanted Type Area Engraver Hand Hard Metals Device Identifier Shelf Expiration Date Model / Serial / Lot Dbx 10cc [id number] - [id number] - [id number] Implanted:Qty : 1 on 01/11/2015 by Colin Krause MD at OR [facility] [place] Tissue - Human N/A: Spine Lumbar MUSCULOSKELETAL TRANSPLANT FND 08/18/2016 359383 / [id number] / Dbx [facility] 302401 - [id number] - [id number] Implanted:Qty : 1 on 01/11/2015 by Colin Krause MD at OR [facility] [place] Tissue - Human N/A: Spine Lumbar MUSCULOSKELETAL TRANSPLANT FND 08/18/2016 688844 / [id number] / Chip Cancellous 30cc 425088 - [id number] Implanted:Qty : 1 on 04/30/2017 by Colin Krause MD at OR [facility] [place] Tissue - Human N/A: Spine Lumbar MUSCULOSKELETAL TRANSPLANT FND 01/20/2020 470789 / / Chip Cancellous 90cc [id number] - [id number] Implanted:Qty : 1 on 04/30/2017 by Colin Krause MD at OR [facility] [place] Tissue - Human N/A: Spine Lumbar MUSCULOSKELETAL TRANSPLANT FND 01/29/2018 259439 / / Viper2 Straight [id number] Cocr - [id number] Implanted:Qty : 2 on 01/11/2015 by Colin Krause MD at OR [facility] [place] N/A: Spine Lumbar JNJ : DEPUY SPINE [id number] / / Screw 6x40 Poly Si [id number] - [id number] Implanted:Qty : 1 on 01/11/2015 by Colin Krause MD at OR [facility] [place] N/A: Spine Lumbar JNJ : ETHICON CARDIOVATIONS [id number] / / Screw 6x40 Ti Uni [id number] - [id number] Implanted:Qty : 8 on 01/11/2015 by Colin Krause MD at OR [facility] [place] N/A: Spine Lumbar JNJ : ETHICON CARDIOVATIONS [id number] / / Screw 5x40 Ti Uni [id number] - [id number] Implanted:Qty : 2 on 01/11/2015 by Colin Krause MD at OR [facility] [place] N/A: Spine Lumbar JNJ : ETHICON CARDIOVATIONS [id number] / / Screw 6x45 Ti Uni [id number] - [id number] Implanted:Qty : 6 on 01/11/2015 by Colin Krause MD at OR [facility] [place] N/A: Spine Lumbar JNJ : ETHICON CARDIOVATIONS [id number] / / Expedium Ti Sfx 5.5 Lat A2 - [id number] Implanted:Qty : 1 on 01/11/2015 by Colin Krause MD at OR [facility] [place] N/A: Spine Lumbar JNJ : ETHICON CARDIOVATIONS [id number] / / Screw Implanted:Qty : 2 on 04/30/2017 by Colin Krause MD at OR [facility] [place] N/A: Spine Lumbar SYNTHES : DEPUY 1797-75861 / / Screw Implanted:Qty : 2 on 04/30/2017 by Colin Krause MD at OR [facility] [place] N/A: Spine Lumbar SYNTHES : DEPUY 17911-18-860 / / Cage Implanted:Qty : 4 on 04/30/2017 by Colin Krause MD at OR [facility] [place] N/A: Spine Lumbar SYNTHES : DEPUY [id number] / / Connector 5.5 Du [id number] - [id number] Implanted:Qty : 4 on 04/30/2017 by Colin Krause MD at OR [facility] [place] N/A: Spine Lumbar JNJ : ETHICON CARDIOVATIONS [id number] / / Uriel 120mm [id number] - [id number] Implanted:Qty : 2 on 04/30/2017 by Colin Krause MD at OR [facility] [place] N/A: Spine Lumbar JNJ : ETHICON CARDIOVATIONS [id number] / / Screw Set Sng Inner [id number] - [id number] Implanted:Qty : 6 on 04/30/2017 by Colin Krause MD at OR [facility] [place] N/A: Spine Lumbar JNJ : ETHICON CARDIOVATIONS [id number] / / Expedium Ti Sfx 5.5 Lat A6 - [id number] Implanted:Qty : 2 on 04/30/2017 by Colin Krause MD at OR [facility] [place] N/A: Spine Lumbar JNJ : ETHICON CARDIOVATIONS [id number] / / Screw 7x45 Ti Uni [id number] - [id number] Implanted:Qty : 4 on 01/11/2015 by Colin Krause MD at OR [facility] [place] Explanted:Qty : 2 on 04/30/2017 at OR [facility] [place] N/A: Spine Lumbar JNJ : DEPUY SPINE [id number] / / Screw Set Sng Inner [id number] - [id number] Implanted:Qty : 20 on 01/11/2015 by Colin Krause MD at OR [facility] [place] Explanted:Qty : 4 on 04/30/2017 at OR [facility] [place] N/A: Spine Lumbar JNJ : DEPUY SPINE [id number] / / Graft Infuse Bone Lg 3486065 - [id number] Implanted:Qty : 1 on 04/30/2017 by Colin Krause MD at OR [facility] [place] N/A: Spine Lumbar [employer]TR[employer] : NEURO CARE 06/10/2018 [id number] / / documented as of this encounter [...] Power of Attor shubham? No Care Teams Otr Van Cdl Truck Driver Relationship Specialty Start Date End Date Casey Rodgers MD [address] [place] [address] PCP - General Family Medicine 09/04/14 documented as of this encounter
--- OUTSIDE RECORDS SUMMARY | 2024-03-01 21:31 | External Medical Summary | Summary of Care ---
Author Name Unknown Organization [facility] Address [address] [place] [address] Phone [phone] Care Team Providers Care Plastic Maker Name Role Phone Casey Rodgers MD Primary Care Provider [phone] Encounter Details Date Type Department Care Team (Late st Contact Info) Description 11/12/2023 Telephone Infectious Disease, [facility] [address] [place] [address] Yong Ramesh, [address] [place] [address] Allergies Active Allergy Reactions Criticality Noted Date Comments Chlorhexidine Itching 09/10/2020 Hydrochlorothiazide Other (Please comment) 02/26/2017 Caused pancreatitis Metronidazole 02/09/2017 Pill causes severe diarrhea Ondansetron Other (Please comment) High 03/04/2018 TAYLOR documented as of this encounter (statuses as of 02/11/2024) Medications Medication Sig Dispensed Refills Start Date [...] as of this encounter (statuses as of 02/11/2024) Active Problems Problem Noted Date Diagnosed Date [...] as of this encounter (statuses as of 02/11/2024) Social History Tobacco Use Types Packs/Day Years [...] encounter Miscellaneous Notes * Telephone Encounter - Kim Bocanegra OSA - 2023 2:02 PM EDT 3rd call left. Sending letter * Telephone Encounter - Kim Bocanegra OSA - 12/13/2023 12:30 PM EDT Called and left message for patient to call back * Telephone Encounter - Kim Bocanegra OSA - 11/29/2023 3:51 PM EDT Called and left message for patient to call back * Telephone Encounter - Yong Ramesh DO - 11/12/2023 12:47 PM EDT This patient was supposed to follow up with ID but did not. Please contact them and schedule a f/u appt. I will see them at my next open appointment. (or they can choose to see one of my partners). Document their response and forward it to me. If you cannot reach them by phone, send a letter. Thank you! Yong Ramesh DO Infectious Diseases documented in this encounter Plan of Treatment Upcoming Encounters Date Type Department Care Team (Late st Contact Info) Description 02/17/2024 3:00 PM EDT Office Visit Cardiology [address] [place] [address] Rhiannon Leal PA-C [address] [place] [address] 02/21/2024 7:05 AM EDT Laboratory Lab Mobile Phlebotomy [facility] [address] [facility] [place] [address] [facility], Gml Mobile Home Draw [email or web address] [facility] [place] [address] 02/22/2024 6:00 AM EDT Anticoagulation Centralized Clinical Pharmacy Services, Alina James [address] [place] [address] [place] [address] [facility], [address] [place] [address] Health Maintenance Due Date Last Done Comments Depression Screening 1956 Albumin/Creatinine Ratio 1962 Hepatitis C Screening 1962 Lung Cancer Screening 1994 Zoster Vaccines (1 of 2) 1994 DXA Scan 12/26/2021 12/26/2014 COVID-19 Vaccine ( season) 2024 07/05/2020, 07/05/2020, 06/07/2020, Additional history [...] this encounter Medical Devices Implanted Type Area Escalator Service Mechanic Device Identifier Shelf Expiration Date Model / Serial / Lot Dbx 10 415936 - [id number] - [id number] Implanted:Qty : 1 on 01/11/2015 by Colin Krause MD at OR [facility] [place] Tissue - Human N/A: Spine Lumbar MUSCULOSKELETAL TRANSPLANT FND 08/18/2016 654118 / [id number] / Dbx 10 636266 - [id number] - [id number] Implanted:Qty : 1 on 01/11/2015 by Colni Krause MD at OR [facility] [place] Tissue - Human N/A: Spine Lumbar MUSCULOSKELETAL TRANSPLANT FND 08/18/2016 398033 / [id number] / Chip Cancellous 30cc 438128 - [id number] Implanted:Qty : 1 on 04/30/2017 by Colin Krause MD at OR [facility] [place] Tissue - Human N/A: Spine Lumbar MUSCULOSKELETAL TRANSPLANT FND 01/20/2020 575999 / / Chip Cancellous 90cc 384961 - [id number] Implanted:Qty : 1 on 04/30/2017 by Colin Krause MD at OR [facility] [place] Tissue - Human N/A: Spine Lumbar MUSCULOSKELETAL TRANSPLANT FND 01/29/2018 137824 / / Viper2 Straight Ray500vm Cocr - [id number] Implanted:Qty : 2 on 01/11/2015 by Colin Krause MD at OR [facility] [place] N/A: Spine Lumbar JNJ : DEPUY SPINE [id number] / / Screw 6x40 Poly Si [id number] - [id number] Implanted:Qty : 1 on 01/11/2015 by Colin Krause MD at OR [facility] [place] N/A: Spine Lumbar JNJ : ETHICON CARDIOVATIONS [id number] / / Screw 6x40 Ti Uni [id number] - [id number] Implanted:Qty : 8 on 01/11/2015 by Colin Krause MD at OR [facility] [place] N/A: Spine Lumbar JNJ : ETHICON CARDIOVATIONS [id number] / / Screw 5x40 Ti Uni [id number] - [id number] Implanted:Qty : 2 on 01/11/2015 by Colin Krause MD at OR [facility] [place] N/A: Spine Lumbar JNJ : ETHICON CARDIOVATIONS [id number] / / Screw 6x45 Ti Uni [id number] - [id number] Implanted:Qty : 6 on 01/11/2015 by Colin Krause MD at OR [facility] [place] N/A: Spine Lumbar JNJ : ETHICON CARDIOVATIONS [id number] / / Expedium Ti Sfx 5.5 Lat A2 - [id number] Implanted:Qty : 1 on 01/11/2015 by Colin Krause MD at [place] [facility] [place] N/A: Spine Lumbar JNJ : ETHICON CARDIOVATIONS [id number] / / Screw Implanted:Qty : 2 on 04/30/2017 by Colin Krause MD at OR [facility] [place] N/A: Spine Lumbar SYNTHES : DEPUY [id number] / / Screw Implanted:Qty : 2 on 04/30/2017 by Colin Krause MD at OR [facility] [place] N/A: Spine Lumbar SYNTHES : DEPUY / / Cage Implanted:Qty : 4 on 04/30/2017 by Colin Krause MD at OR [facility] [place] N/A: Spine Lumbar SYNTHES : DEPUY 187 / / Connector 5.5 Du [id number] - [id number] Implanted:Qty : 4 on 04/30/2017 by Colin Krause MD at OR [facility] [place] N/A: Spine Lumbar JNJ : ETHICON CARDIOVATIONS [id number] / / Uriel 120mm [id number] - [id number] Implanted:Qty : 2 on 04/30/2017 by Colin Krause MD at OR [facility] [place] N/A: Spine Lumbar JNJ : ETHICON CARDIOVATIONS [id number] / / Screw Set Sng Inner [id number] - [id number] Implanted:Qty : 6 on 04/30/2017 by Colin Krause MD at OR [facility] [place] N/A: Spine Lumbar JNJ : ETHICON CARDIOVATIONS [id number] / / Expedium Ti Sfx 5.5 Lat A6 - [id number] Implanted:Qty : 2 on 04/30/2017 by Colin Krause MD at OR [facility] [place] N/A: Spine Lumbar JNJ : ETHICON CARDIOVATIONS [id number] / / Screw 7x45 Ti Uni [id number] - [id number] Implanted:Qty : 4 on 01/11/2015 by Colin Krause MD at OR [facility] [place] Explanted:Qty : 2 on 04/30/2017 at [place] [facility] [place] N/A: Spine Lumbar JNJ : DEPUY SPINE [id number] / / Screw Set Sng Inner [id number] - [id number] Implanted:Qty : 20 on 01/11/2015 by Colin Krause MD at OR [facility] [place] Explanted:Qty : 4 on 04/30/2017 at [place] [facility] [place] N/A: Spine Lumbar JNJ : DEPUY SPINE [id number] / / Graft Infuse Bone Lg 9468048 - [id number] Implanted:Qty : 1 on 04/30/2017 by Colin Krause MD at OR [facility] [place] N/A: Spine Lumbar [employer] : NEURO CARE 06/10/2018 [id number] / / documented as of this encounter [...] Power of Attor shubham? No Care Teams Plastic Maker Relationship Specialty Start Date End Date Casey Rodgers MD [address] [place] [address] PCP - General Family Medicine 09/04/14 documented as of this encounter
--- OUTSIDE RECORDS SUMMARY | 2024-03-01 21:31 | External Medical Summary | Summary of Care ---
Author Name Unknown Organization [facility] Address [address] [place] [address] Phone [phone] Care Team Providers Care Color Shop Helper Name Role Phone Casey Rodgers MD Primary Care Provider [phone] Reason for Visit * Reason Onset Date Comments Encounter Created in Error 01/31/2024 Encounter Details Date Type Department Care Team (Late st Contact Info) Description 01/31/2024 Refill Centralized Clinical Pharmacy Services, Alina James [address] [place] [address] [place] [address] Casey Rodgers MD [address] [place] [address] [facility] [place] [address] Allergies Active Allergy Reactions Criticality Noted Date Comments Chlorhexidine Itching 09/10/2020 Hydrochlorothiazide Other (Please comment) 02/26/2017 Caused pancreatitis Metronidazole 02/09/2017 Pill causes severe diarrhea Ondansetron Other (Please comment) High 03/04/2018 TAYLOR documented as of this encounter (statuses as of 01/31/2024) Medications Medication Sig Dispensed Refills Start Date [...] needed for Fever >38C(100.5F) or Pain, Mild. Active HYDROcodone-Acetam inophen 5-325 MG Oral Tablet [...] as of this encounter (statuses as of 01/31/2024) Active Problems Problem Noted Date Diagnosed Date [...] as of this encounter (statuses as of 01/31/2024) Social History Tobacco Use Types Packs/Day Years [...] encounter Miscellaneous Notes * Telephone Encounter - Alix Olson PHARM Tech - 01/31/2024 9:06 AM EDT Error documented in this encounter Plan of Treatment Upcoming Encounters Date Type Department Care Team (Late st Contact Info) Description 02/17/2024 3:00 PM EDT Office Visit Cardiology [address] [place] [address] Rhiannon Leal PA-C [address] [place] [address] Health Maintenance Due Date Last Done Comments Depression Screening 1956 Albumin/Creatinine Ratio 1962 Hepatitis C Screening 1962 Lung Cancer Screening 1994 Zoster Vaccines (1 of 2) 1994 DXA Scan 12/26/2021 12/26/2014 COVID-19 Vaccine (3 - 2023- season) 2024 07/05/2020, 07/05/2020, 06/07/2020, Additional history [...] this encounter Medical Devices Implanted Type Area Sea Kayaking Guide Device Identifier Shelf Expiration Date Model / Serial / Lot Dbx [facility] 314575 - [id number] - [id number] Implanted:Qty : 1 on 01/11/2015 by Colin Krause MD [place] [facility] [place] Tissue - Human N/A: Spine Lumbar MUSCULOSKELETAL TRANSPLANT FND 08/18/2016 777643 / [id number] / Dbx [facility] 426675 - [id number] - [id number] Implanted:Qty : 1 on 01/11/2015 by Colin Krause MD [place] [facility] [place] Tissue - Human N/A: Spine Lumbar MUSCULOSKELETAL TRANSPLANT FND 08/18/2016 883840 / [id number] / Chip Cancellous 30cc [id number] - [id number] Implanted:Qty : 1 on 04/30/2017 by Colin Krause MD [place] [facility] [place] Tissue - Human N/A: Spine Lumbar MUSCULOSKELETAL TRANSPLANT FND 01/20/2020 [id number] / / Chip Cancellous 90cc [id number] - [id number] Implanted:Qty : 1 on 04/30/2017 by Colin Krause MD [place] [facility] [place] Tissue - Human N/A: Spine Lumbar MUSCULOSKELETAL TRANSPLANT FND 01/29/2018 [id number] / / Viper2 Straight [id number] Cocr - [id number] Implanted:Qty : 2 on 01/11/2015 by Colin Krause MD [place] [facility] [place] N/A: Spine Lumbar JNJ : DEPUY SPINE [id number] / / Screw 6x40 Poly Si [id number] - [id number] Implanted:Qty : 1 on 01/11/2015 by Colin Krause MD [place] [facility] [place] N/A: Spine Lumbar JNJ : ETHICON CARDIOVATIONS [id number] / / Screw 6x40 Ti Uni [id number] - [id number] Implanted:Qty : 8 on 01/11/2015 by Colin Krause MD [place] [facility] [place] N/A: Spine Lumbar JNJ : ETHICON CARDIOVATIONS [id number] / / Screw 5x40 Ti Uni [id number] - [id number] Implanted:Qty : 2 on 01/11/2015 by Colin Krause MD [place] [facility] [place] N/A: Spine Lumbar JNJ : ETHICON CARDIOVATIONS [id number] / / Screw 6x45 Ti Uni [id number] - [id number] Implanted:Qty : 6 on 01/11/2015 by Colin Krause MD [place] [facility] [place] N/A: Spine Lumbar JNJ : ETHICON CARDIOVATIONS [id number] / / Expedium Ti Sfx 5.5 Lat A2 - [id number] Implanted:Qty : 1 on 01/11/2015 by Colin Krause MD [place] [facility] [place] N/A: Spine Lumbar JNJ : ETHICON CARDIOVATIONS [id number] / / Screw Implanted:Qty : 2 on 04/30/2017 by Colin Krause MD [place] [facility] [place] N/A: Spine Lumbar SYNTHES : DEPUY [id number] / / Screw Implanted:Qty : 2 on 04/30/2017 by Colin Krause MD [place] [facility] [place] N/A: Spine Lumbar SYNTHES : DEPUY [id number] / / Cage Implanted:Qty : 4 on 04/30/2017 by Colin Krause MD at [place] [facility] [place] N/A: Spine Lumbar SYNTHES : DEPUY [id number] / / Connector 5.5 Du [id number] - [id number] Implanted:Qty : 4 on 04/30/2017 by Colin Krause MD at [place] [facility] [place] N/A: Spine Lumbar JNJ : ETHICON CARDIOVATIONS [id number] / / Uriel 120mm [id number] - [id number] Implanted:Qty : 2 on 04/30/2017 by Colin Krause MD at [place] [facility] [place] N/A: Spine Lumbar JNJ : ETHICON CARDIOVATIONS [id number] / / Screw Set Sng Inner [id number] - [id number] Implanted:Qty : 6 on 04/30/2017 by Colin Krause MD [place] [facility] [place] N/A: Spine Lumbar JNJ : ETHICON CARDIOVATIONS [id number] / / Expedium Ti Sfx 5.5 Lat A6 - [id number] Implanted:Qty : 2 on 04/30/2017 by Colin Krause MD [place] [facility] [place] N/A: Spine Lumbar JNJ : ETHICON CARDIOVATIONS [id number] / / Screw 7x45 Ti Uni [id number] - [id number] Implanted:Qty : 4 on 01/11/2015 by Colin Krause MD [place] [facility] [place] Explanted:Qty : 2 on 04/30/2017 at [place] [facility] [place] N/A: Spine Lumbar JNJ : DEPUY SPINE [id number] / / Screw Set Sng Inner [id number] - [id number] Implanted:Qty : 20 on 01/11/2015 by Colin Krause MD [place] [facility] [place] Explanted:Qty : 4 on 04/30/2017 at [place] [facility] [place] N/A: Spine Lumbar JNJ : DEPUY SPINE [id number] / / Graft Infuse Bone Lg 7164230 - [id number] Implanted:Qty : 1 on 04/30/2017 by Colin Krause MD at [place] [facility] [place] N/A: Spine Lumbar [employer] : NEURO CARE 06/10/2018 [id number] / / documented as of this encounter [...] Power of Attor shubham? No Care Teams Color Shop Helper Relationship Specialty Start Date End Date Casey Rodgers MD [address] [place] [address] PCP - General Family Medicine 09/04/14 documented as of this encounter
--- OUTSIDE RECORDS SUMMARY | 2024-03-01 21:31 | External Medical Summary ---
Author Name Unknown Address Unknown Organization K01:[facility] [place] - [address] [facility] [address] Laboratory Report Ordering Provider Test Date Status JOAQUÍN LAU 02/09/2024 09:35:00 Final Standing order for pt/inr. < br/>Please draw pt/inr every 1 to 4 weeks as requested
Results to [facility]tico[facility]

Warfarin Therapy
INR: 2.0-3.0 conventional anticoagulation
INR: 2.5-3.5 high intensity anticoagulation Observation Date Value Abnormality Reference (Units ) Status PT 02/09/2024 09:35:00 15.7 Above high normal 11 .6-15.2 (seconds) Final INR 02/09/2024 09:35:00 1.2 0.8-1.2 Final Performing Location [facility] [place] - [address] [facility] [id number]
--- OUTSIDE RECORDS SUMMARY | 2024-03-01 21:31 | External Medical Summary ---
Author Name Unknown Address Unknown Organization K01:[facility] [place] [place] - [address] [place] [id number] Laboratory Report Ordering Provider Test Date Status JOAQUÍN LAU 01/14/2024 09:30:00 Final Standing order for pt/inr. < br/>Please draw pt/inr every 1 to 4 weeks as requested
Results to [facility] Anticoagulation Clinic

Warfarin Therapy
INR: 2.0-3.0 conventional anticoagulation
INR: 2.5-3.5 high intensity anticoagulation Observation Date Value Abnormality Reference (Units ) Status PT 01/14/2024 09:30:00 14.5 11.6-15.2 (seconds) Final INR 01/14/2024 09:30:00 1.1 0.8-1.2 Final Performing Location LABORATORY [facility] [place] [place] - [address] [place] [id number]
--- OUTSIDE RECORDS SUMMARY | 2024-03-01 21:31 | External Medical Summary | Summary of Care ---
Author Name Unknown Organization [facility] Address [address] [place] [address] Phone [phone] Care Team Providers Care Handle Finisher Name Role Phone Casey Rodgers MD Primary Care Provider + [phone] Reason for Visit * Reason Comments Dosage Adjustment Via Phone (anticoag Cl inic) Encounter Details Date Type Department Care Team (Late st Contact Info) Description 02/24/2024 6:00 AM EDT Anticoagulation Centralized Clinical Pharmacy Services, Alina James [address] [place] [address] [place] [address] [facility], [address] [place] [address] Paroxysmal atrial fibrillation (HCC)* Allergies Active Allergy [...] as of this encounter Progress Notes * Linus Whitehead, Shraddha - 02/24/2024 10:27 AM EDT Contacts Contact Date/Time Type Contact Phone/Fax 02/24/2024 10:22 AM EDT Phone (Outgoing) Alexia Campos (Self) [phone] (M) Left Message Subjective Advised patient to contact Anticoagulation Clinic if any unusual bruising or bleeding, recent illness, changes in medication, or questions/concerns. PT/INR results, Coumadin dose instructions, and next PT/INR date communicated as noted by Pharmacist: Yes Linus Whitehead CPhT 02/24/2024, 10:27 AM * Delmy Ritchie RPh - 02/24/2024 9:31 AM EDT Coumadin Clinic (region specific) Objective Current Warfarin Dose As of 02/24/2024 Warfarin maintenance plan: 5 mg (5 mg x 1) every Lela; 7.5 mg (5 mg x 1.5) all other days INR Result As of 02/24/2024 INR goal: 2.0-3.0 INR used for dosin.1 (02/23/2024) Assessment & Plan Warfarin Plan As of 02/24/2024 Full warfarin instructions: 02/23: 10 mg; 02/24: 15 mg; Otherwise 5 mg every Lela; 7.5 mg all other days Next INR check: 03/01/2024 Repeat PT/INR in 1 week(s) Weekly dose: not changed- dose increased at last visit and INR remains normalized. Does pt need a refill, missed doses? Additional Dosing Information: Description GML WF ([facility] GML) w/ Tech to contact patient with dose instructions as noted. Delmy Ritchie RPh 02/24/2024, 9:31 AM documented in this encounter Plan of Treatment Upcoming Encounters Date Type Department Care Team (Late st Contact Info) Description 03/01/2024 7:15 AM EDT Laboratory Lab Mobile Phlebotomy [facility] [address] [place] [address] [facility], Gml Mobile Home Draw [address] [place], [place] [address] 03/02/2024 6:00 AM EDT Anticoagulation Centralized Clinical Pharmacy Services, Alina James [address] [place] [address] [place] [address] [facility], [address] [place] [address] Health Maintenance Due Date Last Done Comments [...] this encounter Medical Devices Implanted Type Area Marine Reporter Device Identifier Shelf Expiration Date Model / Serial / Lot Dbx [facility] 757620 - [id number] - [id number] Implanted:Qty : 1 on 01/11/2015 by Colin Krause MD at [place] [facility] [place] Tissue - Human N/A: Spine Lumbar MUSCULOSKELETAL TRANSPLANT FND 08/18/2016 891638 / [id number] / Dbx [facility] 395725 - [id number] - [id number] Implanted:Qty : 1 on 01/11/2015 by Colin Krause MD at [place] [facility] [place] Tissue - Human N/A: Spine Lumbar MUSCULOSKELETAL TRANSPLANT FND 08/18/2016 732446 / [id number] / Chip Cancellous 30cc 161730 - [id number] Implanted:Qty : 1 on 04/30/2017 by Colin Krause MD at [place] [facility] [place] Tissue - Human N/A: Spine Lumbar MUSCULOSKELETAL TRANSPLANT FND 01/20/2020 720929 / / Chip Cancellous 90cc 752029 - [id number] Implanted:Qty : 1 on 04/30/2017 by Colin Krause MD at [place] [facility] [place] Tissue - Human N/A: Spine Lumbar MUSCULOSKELETAL TRANSPLANT FND 01/29/2018 574650 / / Viper2 Straight [id number] Cocr - [id number] Implanted:Qty : 2 on 01/11/2015 by Colin Krause MD at [place] [facility] [place] N/A: Spine Lumbar JNJ : DEPUY SPINE [id number] / / Screw 6x40 Poly Si [id number] - [id number] Implanted:Qty : 1 on 01/11/2015 by Colin Krause MD at [place] [facility] [place] N/A: Spine Lumbar JNJ : ETHICON CARDIOVATIONS [id number] / / Screw 6x40 Ti Uni [id number] - [id number] Implanted:Qty : 8 on 01/11/2015 by Colni Krause MD at [place] [facility] [place] N/A: Spine Lumbar JNJ : ETHICON CARDIOVATIONS [id number] / / Screw 5x40 Ti Uni [id number] - [id number] Implanted:Qty : 2 on 01/11/2015 by Colin Krause MD at [place] [facility] [place] N/A: Spine Lumbar JNJ : ETHICON CARDIOVATIONS [id number] / / Screw 6x45 Ti Uni [id number] - [id number] Implanted:Qty : 6 on 01/11/2015 by Colin Krause MD at [place] [facility] [place] N/A: Spine Lumbar JNJ : ETHICON CARDIOVATIONS [id number] / / Expedium Ti Sfx 5.5 Lat A2 - [id number] Implanted:Qty : 1 on 01/11/2015 by Colin Krause MD at [place] [facility] [place] N/A: Spine Lumbar JNJ : ETHICON CARDIOVATIONS [id number] / / Screw Implanted:Qty : 2 on 04/30/2017 by Colin Krause MD at OR [facility] [place] N/A: Spine Lumbar SYNTHES : DEPUY [id number] / / Screw Implanted:Qty : 2 on 04/30/2017 by Colin Krause MD at [place] [facility] [place] N/A: Spine Lumbar SYNTHES : DEPUY [id number] / / Cage Implanted:Qty : 4 on 04/30/2017 by Colin Krause MD at [place] [facility] [place] N/A: Spine Lumbar SYNTHES : DEPUY 187 / / Connector 5.5 Du [id number] - [id number] Implanted:Qty : 4 on 04/30/2017 by Colin Krause MD at [place] [facility] [place] N/A: Spine Lumbar JNJ : ETHICON CARDIOVATIONS [id number] / / Uriel 120mm [id number] - [id number] Implanted:Qty : 2 on 04/30/2017 by Colin Krause MD at [place] [facility] [place] N/A: Spine Lumbar JNJ : ETHICON CARDIOVATIONS [id number] / / Screw Set Sng Inner [id number] - [id number] Implanted:Qty : 6 on 04/30/2017 by Colin Krause MD at [place] [facility] [place] N/A: Spine Lumbar JNJ : ETHICON CARDIOVATIONS [id number] / / Expedium Ti Sfx 5.5 Lat A6 - [id number] Implanted:Qty : 2 on 04/30/2017 by Colin Krause MD at [place] [facility] [place] N/A: Spine Lumbar JNJ : ETHICON CARDIOVATIONS [id number] / / Screw 7x45 Ti Uni [id number] - [id number] Implanted:Qty : 4 on 01/11/2015 by Colin Krause MD at [place] [facility] Explanted:Qty : 2 on 04/30/2017 at [place] [facility] N/A: Spine Lumbar JNJ : DEPUY SPINE [id number] / / Screw Set Sng Inner [id number] - [id number] Implanted:Qty : 20 on 01/11/2015 by Colin Krause MD at [place] [facility] Explanted:Qty : 4 on 04/30/2017 at [place] [facility] N/A: Spine Lumbar JNJ : DEPUY SPINE [id number] / / Graft Infuse Bone Lg [id number] - [id number] Implanted:Qty : 1 on 04/30/2017 by Colin Krause MD at OR [facility] N/A: Spine Lumbar [employer] : NEURO CARE 06/10/2018 [id number] / / documented as of this encounter [...] Power of Attor shubham? No Care Teams Handle Finisher Relationship Specialty Start Date End Date Casey Rodgers MD [address] [place] [address] PCP - General Family Medicine 09/04/14 documented as of this encounter
--- OUTSIDE RECORDS SUMMARY | 2024-03-01 21:31 | External Medical Summary | Summary of Care ---
Author Name Unknown Organization [facility] Address [address] [place] [address] Phone [phone] Care Team Providers Care Dsp Engineer Name Role Phone Casey Rodgers MD Primary Care Provider + [phone] Reason for Visit * Reason Comments Dosage Adjustment Via Phone (anticoag Cl inic) Encounter Details Date Type Department Care Team (Late st Contact Info) Description 02/10/2024 6:00 AM EDT Anticoagulation Centralized Clinical Pharmacy Services, Alina James [address] [place] [address] [place] [address] [facility], [address] [place] [address] Paroxysmal atrial fibrillation (HCC)* Allergies Active Allergy Reactions Criticality Noted Date Comments Chlorhexidine Itching 09/10/2020 Hydrochlorothiazide Other (Please comment) 02/26/2017 Caused pancreatitis Metronidazole 02/09/2017 Pill causes severe diarrhea Ondansetron Other (Please comment) High 03/04/2018 TAYLOR documented as of this encounter (statuses as of 02/10/2024) Medications Medication Sig Dispensed Refills Start Date [...] as of this encounter (statuses as of 02/10/2024) Active Problems Problem Noted Date Diagnosed Date [...] as of this encounter (statuses as of 02/10/2024) Social History Tobacco Use Types Packs/Day Years [...] as of this encounter Progress Notes * Coral Ponce, computer programmer - 02/10/2024 10:04 AM EDT Contacts Contact Date/Time Type Contact Phone/Fax 02/10/2024 10:03 AM EDT Phone (Outgoing) Alexia Campos (Self) [phone] (M) Left Message Subjective Advised patient to contact Anticoagulation Clinic if any unusual bruising or bleeding, recent illness, changes in medication, or questions/concerns. PT/INR results, Coumadin dose instructions, and next PT/INR date communicated as noted by Pharmacist: Yes BRIAN ASHBY 02/10/2024, 10:04 AM * Delmy Ritchie RPh - 02/10/2024 8:56 AM EDT Images from the original note were not included. Coumadin Clinic (region specific) Objective Current Warfarin Dose As of 02/10/2024 Warfarin maintenance plan: 5 mg (5 mg x 1) every Tue, Lela; 7.5 mg (5 mg x 1.5) all other days INR Result As of 02/10/2024 INR goal: 2.0-3.0 INR used for dosin.2 (02/09/2024) Assessment & Plan Warfarin Plan As of 02/10/2024 Full warfarin instructions: 02/09: 10 mg; Otherwise 5 mg every Lela; 7.5 mg all other days Next INR check: 02/21/2024 Repeat PT/INR in 1.5 week(s) Weekly dose: increased Additional Dosing Information: Description GML WF ([facility] GML) w/ Tech to contact patient with dose instructions as noted. Delmy Ritchie RPh 02/10/2024, 8:56 AM documented in this encounter Plan of Treatment Upcoming Encounters Date Type Department Care Team (Late st Contact Info) Description 02/17/2024 3:00 PM EDT Office Visit Cardiology [address] [place] [address] Rhiannon Leal PA-C [address] [place] [address] 02/22/2024 6:00 AM EDT Anticoagulation Centralized Clinical Pharmacy Services, Alina James [address] [place] [address] [place] [address] [place] [address] Health Maintenance Due Date Last Done Comments [...] this encounter Medical Devices Implanted Type Area Acetylene Gas Compressor Device Identifier Shelf Expiration Date Model / Serial / Lot Dbx [facility] 935103 - [id number] - [id number] Implanted:Qty : 1 on 01/11/2015 by Colin Krause MD at [place] [facility] Tissue - Human N/A: Spine Lumbar MUSCULOSKELETAL TRANSPLANT FND 08/18/2016 347491 / [id number] / Dbx [facility] 615880 - [id number] - [id number] Implanted:Qty : 1 on 01/11/2015 by Colin Krause MD at [place] [facility] [place] Tissue - Human N/A: Spine Lumbar MUSCULOSKELETAL TRANSPLANT FND 08/18/2016 117321 / [id number] / Chip Cancellous 30cc 927733 - [id number] Implanted:Qty : 1 on 04/30/2017 by Colin Krause MD at [place] [facility] [place] Tissue - Human N/A: Spine Lumbar MUSCULOSKELETAL TRANSPLANT FND 01/20/2020 378372 / / Chip Cancellous 90cc 826781 - [id number] Implanted:Qty : 1 on 04/30/2017 by Colin Krause MD at [place] [facility] Tissue - Human N/A: Spine Lumbar MUSCULOSKELETAL TRANSPLANT FND 01/29/2018 292760 / / Viper2 Straight Axp262zu Cocr - [id number] Implanted:Qty : 2 on 01/11/2015 by Colin Krause MD at [place] [facility] N/A: Spine Lumbar JNJ : DEPUY SPINE [id number] / / Screw 6x40 Poly Si [id number] - [id number] Implanted:Qty : 1 on 01/11/2015 by Colin Krause MD at [place] [facility] N/A: Spine Lumbar JNJ : ETHICON CARDIOVATIONS [id number] / / Screw 6x40 Ti Uni [id number] - [id number] Implanted:Qty : 8 on 01/11/2015 by Colin Krause MD at [place] [facility] N/A: Spine Lumbar JNJ : ETHICON CARDIOVATIONS [id number] / / Screw 5x40 Ti Uni [id number] - [id number] Implanted:Qty : 2 on 01/11/2015 by Colin Krause MD at [place] [facility] N/A: Spine Lumbar JNJ : ETHICON CARDIOVATIONS [id number] / / Screw 6x45 Ti Uni [id number] - [id number] Implanted:Qty : 6 on 01/11/2015 by Colin Krause MD at [place] [facility] N/A: Spine Lumbar JNJ : ETHICON CARDIOVATIONS [id number] / / Expedium Ti Sfx 5.5 Lat A2 - [id number] Implanted:Qty : 1 on 01/11/2015 by Colin Krause MD at [place] [facility] N/A: Spine Lumbar JNJ : ETHICON CARDIOVATIONS [id number] / / Screw Implanted:Qty : 2 on 04/30/2017 by Colin Krause MD at [place] [facility] N/A: Spine Lumbar SYNTHES : DEPUY [id number] / / Screw Implanted:Qty : 2 on 04/30/2017 by Colin Krause MD at [place] [facility] N/A: Spine Lumbar SYNTHES : DEPUY 17911-18-860 / / Cage Implanted:Qty : 4 on 04/30/2017 by Colin Krause MD at [place] [facility] N/A: Spine Lumbar SYNTHES : DEPUY 187111 / / Connector 5.5 Du [id number] - [id number] Implanted:Qty : 4 on 04/30/2017 by Colin Krause MD at [place] [facility] N/A: Spine Lumbar JNJ : ETHICON CARDIOVATIONS [id number] / / Uriel 120mm [id number] - [id number] Implanted:Qty : 2 on 04/30/2017 by Colin Krause MD at [place] [facility] N/A: Spine Lumbar JNJ : ETHICON CARDIOVATIONS [id number] / / Screw Set Sng Inner [id number] - [id number] Implanted:Qty : 6 on 04/30/2017 by Colin Krause MD at [place] [facility] N/A: Spine Lumbar JNJ : ETHICON CARDIOVATIONS [id number] / / Expedium Ti Sfx 5.5 Lat A6 - [id number] Implanted:Qty : 2 on 04/30/2017 by Colin Krause MD at [place] [facility] N/A: Spine Lumbar JNJ : ETHICON CARDIOVATIONS [id number] / / Screw 7x45 Ti Uni [id number] - [id number] Implanted:Qty : 4 on 01/11/2015 by Colin Krause MD at [place] [facility] Explanted:Qty : 2 on 04/30/2017 at OR [facility] N/A: Spine Lumbar JNJ : DEPUY SPINE [id number] / / Screw Set Sng Inner [id number] - [id number] Implanted:Qty : 20 on 01/11/2015 by Colin Krause MD at [place] [facility] Explanted:Qty : 4 on 04/30/2017 at OR [facility] N/A: Spine Lumbar JNJ : DEPUY SPINE [id number] / / Graft Infuse Bone Lg [id number] - [id number] Implanted:Qty : 1 on 04/30/2017 by Colin Krause MD at [place] [facility] N/A: Spine Lumbar [employer] : NEURO CARE 06/10/2018 [id number] / / documented as of this encounter [...] Power of Attor shubham? No Care Teams Dsp Engineer Relationship Specialty Start Date End Date Casey Rodgers MD [address] [place] [address] PCP - General Family Medicine 09/04/14 documented as of this encounter
--- OUTSIDE RECORDS SUMMARY | 2024-03-01 21:31 | External Medical Summary | Summary of Care ---
Author Name Unknown Organization [facility] Address [address] [place] [address] Phone [phone] Care Team Providers Care Lightning Protection Installer Name Role Phone Casey Rodgers MD Primary Care Provider + [phone] Reason for Visit * Reason Comments Dosage Adjustment Via Phone (anticoag Cl inic) Encounter Details Date Type Department Care Team (Late st Contact Info) Description 01/31/2024 6:00 AM EDT Anticoagulation Centralized Clinical Pharmacy Services, Alina James [address] [place] [address] [place] [address] [facility], [address] [place] [address] Paroxysmal atrial fibrillation (HCC)* Allergies Active Allergy [...] this encounter Progress Notes * Alix Olson, turner machine operator - 01/31/2024 9:04 AM EDT Contacts Contact Date/Time Type Contact Phone/Fax 01/31/2024 09:03 AM EDT Phone (Outgoing) Alexia Campos (Self) [phone] (M) Spoke to Patient Subjective Patient Findings [...] as noted by Pharmacist: Yes BRIAN SIMON 01/31/2024, 9:04 AM * Delmy Ritchie RPh - 01/31/2024 8:12 AM EDT Images from the original note were not included. Coumadin Clinic (region specific) Objective Current Warfarin Dose As of 01/31/2024 Warfarin maintenance plan: 5 mg (5 mg x 1) every Sun, Tue, Lela; 7.5 mg (5 mg x 1.5) all other days INR Result As of 01/31/2024 INR goal: 2.0-3.0 INR used for dosin.8 (01/28/2024) Assessment & Plan Warfarin Plan As of 01/31/2024 Full warfarin instructions: 01/30: 10 mg; Otherwise 5 mg every Tue, Lela; 7.5 mg all other days Next INR check: 02/09/2024 Repeat PT/INR in 1.5 week(s) Weekly dose: increased Additional Dosing Information: Description GML WF ([facility] GML) w/ Tech to contact patient with dose instructions as noted. Delmy Ritchie RPh 01/31/2024, 8:12 AM documented in this encounter Plan of Treatment Upcoming Encounters Date Type Department Care Team (Late st Contact Info) Description 02/17/2024 3:00 PM EDT Office Visit Cardiology [address] [place] [phone] Rhiannon Leal PA-C [address] [place] [address] Health Maintenance Due Date Last Done Comments [...] this encounter Medical Devices Implanted Type Area Applied Exercise Physiologist Device Identifier Shelf Expiration Date Model / Serial / Lot Dbx 10 [id number] - [id number] - [id number] Implanted:Qty : 1 on 01/11/2015 by Colin Krause MD at [facility] Tissue - Human N/A: Spine Lumbar MUSCULOSKELETAL TRANSPLANT FND 08/18/2016 [id number] / [id number] / Dbx 10 [id number] - [id number] - [id number] Implanted:Qty : 1 on 01/11/2015 by Colin Krause MD at [facility] Tissue - Human N/A: Spine Lumbar MUSCULOSKELETAL TRANSPLANT FND 08/18/2016 [id number] / [id number] / Chip Cancellous 30cc [id number] - [id number] Implanted:Qty : 1 on 04/30/2017 by Colin Krause MD at [facility] Tissue - Human N/A: Spine Lumbar MUSCULOSKELETAL TRANSPLANT FND 01/20/2020 [id number] / / Chip Cancellous 90cc [id number] - [id number] Implanted:Qty : 1 on 04/30/2017 by Colin Krause MD at [facility] Tissue - Human N/A: Spine Lumbar MUSCULOSKELETAL TRANSPLANT FND 01/29/2018 [id number] / / [id number] Straight [id number] Cocr - [id number] Implanted:Qty : 2 on 01/11/2015 by Colin Krause MD at [facility] N/A: Spine Lumbar JNJ : DEPUY SPINE [id number] / / Screw 6x40 Poly Si [id number] - [id number] Implanted:Qty : 1 on 01/11/2015 by Colin Krause MD at [facility] N/A: Spine Lumbar JNJ : ETHICON CARDIOVATIONS [id number] / / Screw 6x40 Ti Uni [id number] - [id number] Implanted:Qty : 8 on 01/11/2015 by Colin Krause MD at [facility] N/A: Spine Lumbar JNJ : ETHICON CARDIOVATIONS [id number] / / Screw 5x40 Ti Uni [id number] - [id number] Implanted:Qty : 2 on 01/11/2015 by Colin Krause MD at [facility] N/A: Spine Lumbar JNJ : ETHICON CARDIOVATIONS [id number] / / Screw 6x45 Ti Uni [id number] - [id number] Implanted:Qty : 6 on 01/11/2015 by Colin Krause MD at [facility] N/A: Spine Lumbar JNJ : ETHICON CARDIOVATIONS [id number] / / Expedium Ti Sfx 5.5 Lat A2 - [id number] Implanted:Qty : 1 on 01/11/2015 by Colin Krause MD at [facility] N/A: Spine Lumbar JNJ : ETHICON CARDIOVATIONS [id number] / / Screw Implanted:Qty : 2 on 04/30/2017 by Colin Krause MD at [facility] N/A: Spine Lumbar SYNTHES : DEPUY [id number] / / Screw Implanted:Qty : 2 on 04/30/2017 by Colin Krause MD at [facility] N/A: Spine Lumbar SYNTHES : DEPUY / / Cage Implanted:Qty : 4 on 04/30/2017 by Colin Krause MD at [facility] N/A: Spine Lumbar SYNTHES : DEPUY [id number] / / Connector 5.5 Du [id number] - [id number] Implanted:Qty : 4 on 04/30/2017 by Colin Krause MD at [facility] N/A: Spine Lumbar JNJ : ETHICON CARDIOVATIONS [id number] / / Uriel 120mm [id number] - [id number] Implanted:Qty : 2 on 04/30/2017 by Colin Krause MD at [facility] N/A: Spine Lumbar JNJ : ETHICON CARDIOVATIONS [id number] / / Screw Set Sng Inner [id number] - [id number] Implanted:Qty : 6 on 04/30/2017 by Colin Krause MD at [facility] N/A: Spine Lumbar JNJ : ETHICON CARDIOVATIONS [id number] / / Expedium Ti Sfx 5.5 Lat A6 - [id number] Implanted:Qty : 2 on 04/30/2017 by Colin Krause MD at [facility] N/A: Spine Lumbar JNJ : ETHICON CARDIOVATIONS [id number] / / Screw 7x45 Ti Uni [id number] - [id number] Implanted:Qty : 4 on 01/11/2015 by Colin Krause MD at [facility] Explanted:Qty : 2 on 04/30/2017 at [facility] N/A: Spine Lumbar JNJ : DEPUY SPINE [id number] / / Screw Set Sng Inner [id number] - [id number] Implanted:Qty : 20 on 01/11/2015 by Colin Krause MD at [facility] Explanted:Qty : 4 on 04/30/2017 at [facility] N/A: Spine Lumbar JNJ : DEPUY SPINE [id number] / / Graft Infuse Bone Lg [id number] - [id number] Implanted:Qty : 1 on 04/30/2017 by Colin Krause MD at [facility] N/A: Spine Lumbar MEDTRONIC : NEURO CARE 06/10/2018 [id number] / / documented as of this encounter [...] Power of Attor shubham? No Care Teams Lightning Protection Installer Relationship Specialty Start Date End Date Casey Rodgers MD [address] [place] [id number] PCP - General Family Medicine 09/04/14 documented as of this encounter
--- OUTSIDE RECORDS SUMMARY | 2024-03-01 21:31 | External Medical Summary | Summary of Care ---
Author Name Unknown Organization [facility] Address [address] [place] [address] Phone [phone] Care Team Providers Care Heavy Threader Name Role Phone Casey Rodgers MD Primary Care Provider [phone] Reason for Visit * Reason Onset Date Comments Medication Refill 02/10/2024 Encounter Details Date Type Department Care Team (Late st Contact Info) Description 02/10/2024 Refill Centralized Clinical Pharmacy Services, Alina James [address] [place] [address] [place] [address] Casey Rodgers MD [address] [place] [address] [facility] [place] [phone] Allergies Active [...] daily as needed for Constipation. 30 Tablet Active Bisacodyl 10 MG Rectal Suppository (Dulcolax) [...] as needed for Pain, Moderate. 90 Tablet Active Additional Information Patient not taking.Reported on [...] encounter Miscellaneous Notes * Telephone Encounter - Charlette Fitzgerald [facility] - 02/11/2024 1:07 PM EDT Refused Prescriptions: Disp Refills Warfarin Sodium 5 MG Oral Tablet (Coumadin)30 Tab*5 Sig: Take 1 to 1 and 1/2 tablets by mouth daily as directed by anticoagulation clinic Refused By: CHARLETTE FITZGERALD Reason for Refusal: Too soon * Telephone Encounter - Charlette Fitzgerald [facility] - 02/11/2024 1:06 PM EDT 5 refills sent 12/13 * Telephone Encounter - Shwetha Gale [facility] - 02/10/2024 12:23 PM EDT Did you pend patient's preferred pharmacy and medication before forwarding?yes Pharmacy: [id number] Pending Prescriptions: Disp Refills Warfarin Sodium 5 MG Oral Tablet (Coumadi*30 Tab*5 Sig: Take 1 to 1 and 1/2 tablets by mouth daily as directed by anticoagulation clinic Last Visit: Visit date not found (in office), Visit date not found (telemedicine) Next Visit: 02/22/2024 If no future appointments scheduled, and last appointment is greater than a year ago, please schedule patient for a follow-up appointment Last date the medication was ordered: 12/14/2023 Is this request for a controlled substance?No Urine Drug Screen:No results found for this or any previous visit. Patient Phone Numbers Labs: Lab Results Component Value Date/Time CREAT 0.79 11/01/2023 12:00 AM CREAT 0.4 (L) 05/03/2017 06:51 AM POTASSIUM 4.5 11/01/2023 12:00 AM POTASSIUM 3.6 05/03/2017 06:51 AM TSH 2.83 09/04/2014 03:12 PM LDL 76 09/04/2014 03:12 PM ALT 11 09/22/2023 02:43 PM ALT 8 (L) 09/04/2014 03:12 PM HGBA1C 5.0 04/22/2017 04:53 PM documented in this encounter Plan of [...] this encounter Medical Devices Implanted Type Area Customs And Border Protection Inspector Device Identifier Shelf Expiration Date Model / Serial / Lot Dbx 10 [id number] - [id number] - [id number] Implanted:Qty : 1 on 01/11/2015 by Colin Krause MD at [place] [facility] Tissue - Human N/A: Spine Lumbar MUSCULOSKELETAL TRANSPLANT FND 08/18/2016 [id number] / [id number] / Dbx 10 786491 - [id number] - [id number] Implanted:Qty : 1 on 01/11/2015 by Colin Krause MD at [facility] Tissue - Human N/A: Spine Lumbar MUSCULOSKELETAL TRANSPLANT FND 08/18/2016 [id number] / [id number] / Chip Cancellous 30cc [id number] - [id number] Implanted:Qty : 1 on 04/30/2017 by Colin Krause MD at [facility] Tissue - Human N/A: Spine Lumbar MUSCULOSKELETAL TRANSPLANT FND 01/20/2020 [id number] / / Chip Cancellous 90cc [id number] - [id number] Implanted:Qty : 1 on 04/30/2017 by Colin Krause MD at [facility] Tissue - Human N/A: Spine Lumbar MUSCULOSKELETAL TRANSPLANT FND 01/29/2018 [id number] / / Viper2 Straight [id number] Cocr - [id number] Implanted:Qty : 2 on 01/11/2015 by Colin Krause MD at [place] [facility] N/A: Spine Lumbar JNJ : DEPUY SPINE [id number] / / Screw 6x40 Poly Si [id number] - [id number] Implanted:Qty : 1 on 01/11/2015 by Colin Krause MD at [facility] N/A: Spine Lumbar JNJ : ETHICON CARDIOVATIONS [id number] / / Screw 6x40 Ti Uni [id number] - [id number] Implanted:Qty : 8 on 01/11/2015 by Colin Krause MD at [place] [facility] N/A: Spine Lumbar JNJ : ETHICON CARDIOVATIONS [id number] / / Screw 5x40 Ti Uni [id number] - [id number] Implanted:Qty : 2 on 01/11/2015 by Colin Krause MD at [facility] N/A: Spine Lumbar JNJ : ETHICON CARDIOVATIONS [id number] / / Screw 6x45 Ti Uni [id number] - [id number] Implanted:Qty : 6 on 01/11/2015 by Colin Krause MD at [facility] N/A: Spine Lumbar JNJ : ETHICON CARDIOVATIONS [id number] / / Expedium Ti Sfx 5.5 Lat A2 - [id number] Implanted:Qty : 1 on 01/11/2015 by Colin Krause MD at [place] [facility] N/A: Spine Lumbar JNJ : ETHICON CARDIOVATIONS [id number] / / Screw Implanted:Qty : 2 on 04/30/2017 by Colin Krause MD at [facility] N/A: Spine Lumbar SYNTHES : DEPUY [id number] / / Screw Implanted:Qty : 2 on 04/30/2017 by Colin Krause MD at [facility] N/A: Spine Lumbar SYNTHES : DEPUY [id number] / / Cage Implanted:Qty : 4 on 04/30/2017 by Colin Krause MD at [facility] N/A: Spine Lumbar SYNTHES : DEPUY [id number] / / Connector 5.5 Du [id number] - [id number] Implanted:Qty : 4 on 04/30/2017 by Colin Krause MD at [facility] N/A: Spine Lumbar JNJ : ETHICON CARDIOVATIONS [id number] / / Uriel 120mm [id number] - [id number] Implanted:Qty : 2 on 04/30/2017 by Colin Krause MD at [facility] N/A: Spine Lumbar JNJ : ETHICON CARDIOVATIONS [id number] / / Screw Set Sng Inner [id number] - [id number] Implanted:Qty : 6 on 04/30/2017 by Colin Krause MD at [facility] N/A: Spine Lumbar JNJ : ETHICON CARDIOVATIONS [id number] / / Expedium Ti Sfx 5.5 Lat A6 - [id number] Implanted:Qty : 2 on 04/30/2017 by Colin Krause MD at [facility] N/A: Spine Lumbar JNJ : ETHICON CARDIOVATIONS [id number] / / Screw 7x45 Ti Uni [id number] - [id number] Implanted:Qty : 4 on 01/11/2015 by Colin Krause MD at [facility] Explanted:Qty : 2 on 04/30/2017 at [place] [facility] N/A: Spine Lumbar JNJ : DEPUY SPINE [id number] / / Screw Set Sng Inner [id number] - [id number] Implanted:Qty : 20 on 01/11/2015 by Colin Krause MD at [facility] Explanted:Qty : 4 on 04/30/2017 at [facility] N/A: Spine Lumbar JNJ : DEPUY SPINE [id number] / / Graft Infuse Bone Lg [id number] - [id number] Implanted:Qty : 1 on 04/30/2017 by oClin Krause MD at [place] [facility] N/A: Spine Lumbar MEDTRONIC : NEURO CARE 06/10/2018 [id number] / / documented as of this encounter [...] Power of Attor shubham? No Care Teams Heavy Threader Relationship Specialty Start Date End Date Casey Rodgers MD [address] [place] [id number] PCP - General Family Medicine 09/04/14 documented as of this encounter
--- OUTSIDE RECORDS SUMMARY | 2024-03-01 21:31 | External Medical Summary ---
Author Name Unknown Address Unknown Organization K01:[facility] [place] [address] [place] [address] Laboratory Report Ordering Provider Test Date Status JOAQUÍN LAU 01/28/2024 09:05:00 Final Standing order for pt/inr. < br/>Please draw pt/inr every 1 to 4 weeks as requested
Results to [facility]

Warfarin Therapy
INR: 2.0-3.0 conventional anticoagulation
INR: 2.5-3.5 high intensity anticoagulation Observation Date Value Abnormality Reference (Units ) Status PT 01/28/2024 09:05:00 20.7 Above high normal 11 .6-15.2 (seconds) Final INR 01/28/2024 09:05:00 1.8 Above high normal 0. 8-1.2 Final Performing Location [facility] [place] [address] [place] [address]
[2024-03-02 07:07] LABS: Basophils # (auto) 0.09 K/uL (0.00-0.20); Basophils % (auto) 1.2 %; Eosinophils # (auto) 0.07 K/uL (0.00-0.50); Eosinophils % (auto) 0.9 %; Hematocrit (blood only) 40.7 % (37.0-47.0); Hemoglobin 12.7 g/dl (12.0-16.0); Immature Granulocytes # (auto) 0.03 K/uL (0.01-0.20); Immature Granulocytes % (auto) 0.4 %; Lymphocytes # (auto) 0.82 K/uL (1.20-3.40); Lymphocytes % (auto) 10.9 %; Mean Corpuscular Hemoglobin 30.2 pg (25.0-34.0); Mean Corpuscular Hgb Conc 31.2 g/dL (32.0-36.0); Mean Corpuscular Volume 96.7 fL (80.0-100.0); Mean Platelet Volume 9.8 fL (9.4-12.4); Monocytes # (auto) 0.48 K/uL (0.11-0.59); Monocytes % (auto) 6.4 %; Neutrophils # (auto) 6.05 K/uL (1.40-6.50); Neutrophils % (auto) 80.2 %; Platelet Count 259 K/uL (130-400); RDW Coefficient of Variation 15.4 % (11.5-14.5); RDW Standard Deviation 54.2 fL (36.4-46.3); Red Blood Count 4.21 M/uL (4.20-5.40); White Blood Count 7.54 K/ul (4.8-10.8)
[2024-03-02 07:23] LABS: Albumin Globulin Ratio 1.5 (0.9-2); Albumin Level 3.8 gm/dl (3.4-5.0); BUN Creatinine Ratio 26.9 (10-20); Bilirubin,Total 0.5 mg/dl (0.2-1.0); Calcium 8.6 mg/dl (8.6-10.3); Globulin 2.6 gm/dl (2.5-4.0); Magnesium 2.1 mg/dl (1.7-2.4); Potassium 3.9 mmol/L (3.5-5.1); Total Protein 6.4 gm/dl (6.0-8.3)
[2024-03-02 07:35] LABS: INR 1.1 (0.9-1.1); Prothrombin Time 11.5 Seconds (9.0-12.0)
--- NOTE | 2024-03-02 08:00 | Hospitalist Progress Note ---
Date of Service March 02, 2024 Assessment & Plan (1) Acute on chronic heart failure with preserved ejection fraction (HFpEF): (2) CAD (coronary artery disease): (3) Paroxysmal atrial fibrillation: (4) COPD (chronic obstructive pulmonary disease): Plan This is a 78-year-old female who has significant past medical history of PAF anticoagulated with warfarin, chronic HFpEF, HLD, HTN, mitral insufficiency, COPD, chronic tobacco use, GERD, chronic back pain who presents to ED secondary to worsening lower extremity swelling. Acute on Chronic HFpEF CAD admitted to med tele pt with 10 lbs weight gain and increased lower ext edema over last 2-3 weeks Pt lasix increased to 40mg BID orally w/o improvement obtained b/l venous Doppler - negat. for DVT, no active cellulitis, consult wound care BNP elevated last echo 05/01 which revealed LVEF 60 to 65%, left atrium moderately dilated, moderate to severe early systolic mitral regurgitation, mild tricuspid regurg, mild pulmonary hypertension. IV Lasix 40mg BID, strict I and O, daily weight continue aldactone, metoprolol, imdur, ASA, statin supplement K, follow bmp Cardiology consulted - will repeat echo, cont IV lasix , metoprolol dose increased PAF NSR on ECG INR 1.0, pt reports taking medication but I question compliance will place on Lovenox BID and warfarin until INR > 2 COPD Chronic tobacco abuse encourage cessation, no acute exacerbation Chronic Back pain Presence of intrathecal pain pump continue home prn meds Ambulatory dysfunction 2/2 above PT/OT DVT ppx: SQ Lovenox/Warfarin, D/C Lovenox when INR > 2 DNR/DNI PCP: Vishal Dispo: admit to [facility], pt lives with , walks with rollator, consult PT/OT Admission and Anticipated Discharge Date Admission Date: March 01, 2024 Subjective Pt seen in follow up, admitted yesterday for chf and LE edema Currently laying in bed in NAD Says LE edema is already much improved Reports being a smoker, currently using suppl. O2 Denies any chest pain or shortness of breath Review of Systems Review of Systems: All systems reviewed & are unremarkable except as noted in Subjective Physical Exam Physical Exam: Constitutional: thin/ cachetic , chronically ill appearing F in NAD, on suppl. O2 Head: Normocephalic, Atraumatic Eyes: PERRL, conjunctivae normal, anicteric sclerae ENMT: external ear and nose normal, oropharynx normal Neck: normal visual inspection Respiratory: normal respiratory effort, breath sounds decreased at bases, no wheezing Cardiovascular: RRR, no murmur, no edema Chest: normal inspection of chest Abdomen: normal bowel sounds, soft, nontender Musculoskeletal: + LE edema, moves extremities Skin: no rashes, warm, dry Neurologic: PERRL, EOMI, no face palsy, no dysarthria, moves all extremities Psychiatric: A+Ox3, euthymic affect Results & Data Results & Data Vital Signs (Past 12 Hours) Vital Signs Pulse Pulse Resp BP Pulse Ox O2 Del Method O2 Flow Rate 03/02/24 07:19 65 03/02/24 06:00 99 H 20 98 Nasal Cannula 2 03/02/24 00:37 77 16 99/68 L 90 Nasal Cannula 2 Laboratory Results 03/02/24 03/01/24 03/01/24 Range/Units 06:40 14:37 11:46 WBC 7.54 7.65 (4.8-10.8) K/ul RBC 4.21 4.32 (4.20-5.40) M/uL Hgb 12.7 13.2 (12.0-16.0) g/dl Hct 40.7 42.4 (37.0-47.0) % MCV 96.7 98.1 (80.0-100.0) fL MCH 30.2 30.6 (25.0-34.0) pg MCHC 31.2 L 31.1 L (32.0-36.0) g/dL RDW Std Deviation 54.2 H 55.0 H (36.4-46.3) fL RDW Coeff of Oliver 15.4 H 15.3 H (11.5-14.5) % Plt Count 259 296 (130-400) K/uL MPV 9.8 10.7 (9.4-12.4) fL Immature Gran % (Auto) 0.4 0.3 % Neut % (Auto) 80.2 80.2 % Lymph % (Auto) 10.9 9.2 % [place] % (Auto) 6.4 8.2 % Eos % (Auto) 0.9 1.2 % Baso % (Auto) 1.2 0.9 % Neut # (Auto) 6.05 6.14 (1.40-6.50) K/uL Lymph # (Auto) 0.82 L 0.70 L (1.20-3.40) K/uL [place] # (Auto) 0.48 0.63 H (0.11-0.59) K/uL Eos # (Auto) 0.07 0.09 (0.00-0.50) K/uL Baso # (Auto) 0.09 0.07 (0.00-0.20) K/uL Immature Gran # (Auto) 0.03 0.02 (0.01-0.20) K/uL PT 11.5 11.3 11.2 (9.0-12.0) Seconds INR 1.1 1.0 1.0 (0.9-1.1) APTT 31 (21-31) Seconds PTT Ratio 1.2 Sodium 142 141 (136-145) mmol/L Potassium 3.9 3.7 (3.5-5.1) mmol/L Chloride 103 101 (98-107) mmol/L Carbon Dioxide 32 33 H (21-32) mmol/L Anion Gap 7 7 (3-11) BUN 21 23 (6-23) mg/dl Creatinine 0.78 0.85 (0.6-1.2) mg/dl Est Cr Clr Drug Dosing 42.0 38.5 ml/min eGFR 77.21 69.65 BUN/Creatinine Ratio 26.9 H 27.1 H (10-20) Glucose 103 H 90 (70-99(Fasting)) mg/dl Calcium 8.6 8.9 (8.6-10.3) mg/dl Magnesium 2.1 (1.7-2.4) mg/dl Total Bilirubin 0.5 0.3 (0.2-1.0) mg/dl AST 14 17 (13-39) U/L ALT 8 11 (7-52) U/L Alkaline Phosphatase 191 H 194 H (34-104) U/L Troponin I High Sens 12.9 (0-14) pg/ml B-Natriuretic Peptide 765 H (0-100) pg/ml Total Protein 6.4 6.9 (6.0-8.3) gm/dl Albumin 3.8 3.9 (3.4-5.0) gm/dl Globulin 2.6 3.0 (2.5-4.0) gm/dl Albumin/Globulin Ratio 1.5 1.3 (0.9-2) Medications Administered Current Inpatient Medications Acetaminophen (Acetaminophen 325 Mg Tab) 650 mg PO Q4H PRN PRN Reason: Pain or Fever Stop: 03/31/24 15:43 Hydrocodone Bitart/Acetaminophen (Hydrocodone/Acetamophen 5/325mg Tab) 1 tab PO Q4H REJI Stop: 03/15/24 16:14 Last Admin: 03/02/24 03:38 Dose: 1 tab Al Hydrox/Mg Hydrox/Simethicone (Aluminum/Magnesium Susp 30 Ml Udc) 15 ml PO Q4H PRN PRN Reason: Dyspepsia Stop: 03/31/24 15:43 Aspirin (Aspirin 81 Mg Chew) 81 mg PO DAILY REJI Stop: 04/01/24 08:59 Atorvastatin Calcium (Atorvastatin 10 Mg Tab) 10 mg PO QAM [facility] Stop: 04/01/24 08:59 Buspirone HCl (Buspirone 5 Mg Tab) 5 mg PO BID REJI Stop: 03/31/24 20:59 Last Admin: 03/01/24 20:38 Dose: 5 mg Calcium/Vitamin D (Calcium 600mg + Vit D 400 Iu Tab) 1 tab PO DAILY [facility] Stop: 04/01/24 08:59 Enoxaparin Sodium (Enoxaparin Inj 60 Mg/0.6 Ml Syr) 50 mg SQ Q12H [facility] Stop: 03/31/24 15:59 Last Admin: 03/02/24 03:38 Dose: 50 mg Furosemide (Furosemide 40 Mg/4 Ml Vial) 40 mg IV BID17 REJI Stop: 03/31/24 16:59 Last Admin: 03/01/24 16:42 Dose: 40 mg Isosorbide Mononitrate (Isosorbide [place] Extended Rel 30 Mg Tabcr) 30 mg PO QAM [facility] Stop: 04/01/24 08:59 Magnesium Hydroxide (Magnesium Hydroxide Susp 30 Ml Udc) 30 ml PO Q12H PRN PRN Reason: Constipation Stop: 03/31/24 15:43 Metoprolol Succinate (Metoprolol Succ 25mg Ext Rel Tab) 25 mg PO DAILY [facility] Stop: 04/01/24 08:59 Miscellaneous (Remove Nitro-Dur Patch) 1 each N/A DAILY@59 [facility] Stop: 04/02/24 08:58 Multivitamins (Multivitamin Tab) 1 tab PO QAM [facility] Stop: 04/01/24 08:59 Nitroglycerin (Nitroglycerin 0.4 Mg/Hr Patch) 1 patch TD DAILY [facility] Stop: 04/01/24 08:59 Ondansetron HCl (Ondansetron Inj 2 Mg/Ml 2 Ml Vial) 4 mg IV Q6H PRN PRN Reason: Nausea Stop: 03/31/24 15:43 Pantoprazole Sodium (Pantoprazole 40 Mg Tab) 40 mg PO DAILY [facility]; Protocol Stop: 04/01/24 08:59 Polyethylene Glycol (Polyethylene (Miralax) 17 Gm Pack) 17 gm PO DAILY PRN PRN Reason: Constipation Stop: 03/31/24 15:43 Last Admin: 03/01/24 18:15 Dose: 17 gm Potassium Chloride (Potassium Chloride Crtab 20 Meq Tabcr) 20 meq PO BID [facility] Stop: 03/31/24 15:43 Last Admin: 03/01/24 20:37 Dose: 20 meq Spironolactone (Spironolactone 12.5 Mg Tab) 12.5 mg PO MoWeFr@0900 [facility] Stop: 03/31/24 15:59 Last Admin: 03/01/24 16:47 Dose: 12.5 mg Trazodone HCl (Trazodone Hcl 100 Mg Tab) 200 mg PO HS [facility] Stop: 03/31/24 20:59 Last Admin: 03/01/24 20:37 Dose: 200 mg Warfarin Sodium (Warfarin Sod 5 Mg Tab) 5 mg PO SuTuThSa@1600 [facility] Stop: 04/01/24 15:59 Warfarin Sodium (Warfarin Sod 7.5 Mg Tab) 7.5 mg PO MoWeFr@1600 [facility] Stop: 03/31/24 15:59 Last Admin: 03/01/24 16:46 Dose: 7.5 mg (2) CAD (coronary artery disease) Associated angina: with unspecified form of angina Coronary Disease- Associated Artery/Lesion type: [place] artery [place] vs. transplanted heart: [place] heart Qualified Code(s): I25.119 - Atherosclerotic heart disease of [place] coronary artery with unspecified angina pectoris
[2024-03-02] MEDS: METOPROLOL SUCC 25MG EXT REL TAB PO SCH ×2 (08:54→20:12)
[2024-03-02] MEDS: ISOSORBIDE MONO EXTENDED REL 30 MG TABCR PO SCH (08:54)
[2024-03-02] MEDS: CALCIUM 600MG + VIT D 400 IU TAB PO SCH (08:54)
[2024-03-02] MEDS: ASPIRIN 81 MG CHEW PO SCH (08:55)
[2024-03-02] MEDS: MULTIVITAMIN TAB PO SCH (08:55)
[2024-03-02] MEDS: ATORVASTATIN 10 MG TAB PO SCH (08:55)
[2024-03-02] MEDS: NITROGLYCERIN 0.4 MG/HR PATCH TD SCH (08:55)
[2024-03-02] MEDS: PANTOprazole 40 MG TAB PO SCH (08:55)
--- NOTE | 2024-03-02 09:59 | Cardiology Consultation ---
Date of Consultation March 02, 2024 Assessment & Plan (1) Acute on chronic heart failure with preserved ejection fraction (HFpEF): (2) Paroxysmal atrial fibrillation: (3) CAD (coronary artery disease): (4) Mitral regurgitation: (5) HTN (hypertension): (6) HLD (hyperlipidemia): (7) Smoker: Plan 78-year-old female with worsening bilateral lower extremity edema with seeping fluid, shortness of breath, 10 lb weight gain, and dry cough over the past two weeks. She also notes intermittent left-sided chest pressure without radiation occurring at rest. Occasional palpitations with heart fluttering. Acute on chronic HFpEF, NYHA Class III-IV Hypervolemic upon examination today with +2 pitting edema in bilateral LE CXR revealed cardiomegaly with chronic interstitial thickening c/w lung disease and no consolidation or pleural effusions Last ECHO 04/2023 with LVEF 60-65%, mild LVH, moderately dilated left atrium, moderate-severe mitral regurgitation, mild TR, and mild pulmonary hypertension BNP elevated at 765 Kidney function and electrolytes stable upon lab review Continue to diuresis with IV furosemide 40 mg twice daily Continue potassium chloride 20 mEQ twice daily Continue spironolactone 12.5 mg Record daily weights Document accurate I&Os Maintain sodium restriction with less than 2g/day Maintain fluid restriction with less than 64 ounces daily Monitor and replace electrolytes as needed with goal K+ 4.0 and Mg 2.0 Paroxysmal AFIB, [id number] (age +2, gender, CHF, HTN, CAD) Patient with intermittent palpitations and heart fluttering Heart rates 60 to 100s on telemetry with 2 runs of PAT Increase metoprolol 25 mg PO twice daily Subtherapeutic INR at 1.1 today Continue Lovenox BID and warfarin until INR >2 Coronary artery disease Patient with intermittent left-sided chest pain, non-exertional and non- radiating EKG with no acute ischemic changes Troponin negative Previous nuclear stress test on 11/09/22 with chest discomfort observed after administration of Lexiscan and equivocal EKG changes but no reversible perfusion defects. Patient opted for medical management at that time. Low suspicion for cardiac involvement given negative ischemic work-up in ED Continue aspirin 81 mg daily Continue isosorbide mononitrate 30 mg daily Moderate-severe mitral regurgitation Last ECHO 04/2023 with LVEF 60-65%, mild LVH, moderately dilated left atrium, moderate-severe mitral regurgitation, mild TR, and mild pulmonary hypertension Continue to monitor with ECHO every year Hypertension Blood pressure elevated at 161/102 this morning, but repeat blood pressure 130/55 after receiving medications Blood pressure labile in ED Continue metoprolol Continue isosorbide mononitrate Hyperlipidemia Continue atorvastatin 10 mg daily Chronic tobacco use Encouraged smoking cessation Patient not interested in quitting at this time Supervising Physician Co-Signing Physician Notes Patient was seen and personally examined. Full assessment and plan as outlined above. Care and management discussed in detail with advanced provider and personally endorsed 78-year-old fragile female with chronic diastolic heart failure secondary to elevated pulmonary pressures and valvular heart disease, chronic obstructive lung disease with chronic tobacco use, kyphotic chest status post surgical intervention September 2023 Presents now with increasing lower extremity edema, elevated blood pressure and labile heart rate Transient atrial tachycardia on telemetry Plan as above treat edema with IV diuretic dosing Will repeat echocardiogram Increase metoprolol succinate to 25 mg twice per day Replete potassium and continue spironolactone Continue oxygen supplementation History of Present Illness Reason for Consultation: CHF, LE edema Requesting Physician: Nba Malagon MD Attending Physician: Nba Malagon MD History of Present Illness 78-year-old female with past medical history significant for chronic HFpEF NYHA Class III, paroxysmal AFIB (on warfarin), valvular disease with moderate mitral regurgitation, CAD, HTN, HLD, COPD, and chronic tobacco use who presented to the ED for evaluation of worsening lower extremity swelling. She states that she has been in and out of the hospital over the past year. Recently seen and evaluated at an outside hospital for a fall several weeks ago. Work-up with x-rays revealed no traumatic injury. She developed leg swelling and redness after discharge home. She was readmitted to the hospital. Discharged on antibiotics and Lasix. Lower leg redness has improved, but swelling has continued to worsen over the past two weeks. She has been taking oral Lasix 40 mg twice daily with no improvement. She decided to come into the hospital yesterday after she notices fluid seeping from lower legs. Has gained 10 lbs over the course of two weeks. Worsening shortness of breath. Activity is limited, but uses walker for short distances at home. Dyspnea on exertion with walking to bathroom. She sleeps in a recliner. Difficulty sleeping at night. She reports waking up short of breath. She occasionally feels heart fluttering and skipped beats occurring every 2-3 days. Denies history of YONNY. She reports intermittent, non-radiating left-sided chest pressure occurring at rest last night in ED. Rated at 4-5 out of 10. Lasted for 20 minutes. Pain resolved and she did not receive a Nitro patch. EKG with no acute ischemic ch anges. Troponin negative. BNP elevated at 765. CXR showed cardiomegaly without pleural effusion. She underwent a nuclear stress test on 11/09/22 with symptoms of chest discomfort observed after administration of Lexiscan and equivocal EKG changes but no reversible perfusion defects. Patient opted for medical management at that time. Last ECHO in 04/2023 showing LVEF 60-65%, mild left ventricular hypertrophy, moderately dilated left atrium, moderate to severe mitral regurgitation, mild tricuspid regurgitation, and mild pulmonary hypertension. Chart, medications, and telemetry over the past 24 hours reviewed. Social History: She lives with her . Her son lives close and helps with care. 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 Currently smoking 1/2 ppd. Denies alcohol or illicit drug use. She receives Meals to Wheels and selects low-sodium options. Fluid intake less than 64 ounces with 2 glasses water and 2 glasses of milk daily. Family History: Mother - [place], HTN Father - [place], HTN, cancer Past Medical History: Chronic HFpEF Paroxysmal AFIB Moderate mitral regurgitation CAD HTN HLD COPD Chronic tobacco use GERD Spinal stenosis Chronic back pain Constipation Pancreatitis (2017) Gastric ulcer Gastritis History of GI bleeding Past Surgical History: History of cardiac cath (1994) History of colonoscopy History of EGD History of cataract surgery History of spinal fusion (x2 lumbar fusions) Allergies Allergy/AdvReac Type Severity Reaction Status Date / Time chlorhexidine Allergy Intermediate Rash Verified 09/16/23 11:29 hydrochlorothiazide AdvReac Severe Pancreatiti Verified 09/16/23 11:29 s fluconazole [From Diflucan] AdvReac Intermediate Diarrhea Verified 09/16/23 11:29 (with oral) ondansetron [From Zofran] AdvReac Intermediate Headaches Verified 09/16/23 11:29 Home Medications Medication Instructions Recorded Confirmed Type multivitamin 1 tab PO QAM 02/05/20 03/01/24 History rizatriptan 10 mg tablet 10 mg PO UD PRN Migraine Headache 01/20/22 03/01/24 History trazodone 100 mg tablet 200 mg PO HS 01/20/22 03/01/24 History promethazine 12.5 mg tablet 12.5 mg PO Q6H PRN Nausea 06/08/22 03/01/24 History atorvastatin 10 mg tablet 10 mg PO QAM #30 tabs 11/10/22 03/01/24 Rx Hydromorphone Pain Pump 0 mg INJ DIRECTED 01/31/23 03/01/24 History [id number] 1 tab PO TID PRN Migraine Headache 01/31/23 03/01/24 History 50 mg-325 mg-40 mg tablet calcium 600 mg (as 1 tab PO DAILY 01/31/23 03/01/24 History carbonate)-vitamin D3 10 mcg (400 unit) tablet (Calcium 600 + D(3)) metoprolol succinate 25 mg 25 mg PO UD 01/31/23 03/01/24 History tablet,extended release 24 hr buspirone 5 mg tablet 5 mg PO BID 02/10/23 03/01/24 History hydrocodone 5 mg-acetaminophen 325 1 - 2 tab PO Q4H PAIN 03/31/23 03/01/24 History mg tablet warfarin 5 mg tablet 5 mg PO DAILY@1600 03/31/23 03/01/24 History isosorbide mononitrate 30 mg 30 mg PO QAM #30 tabs 04/20/23 03/01/24 Rx tablet,extended release 24 hr nitroglycerin 0.4 mg sublingual 0.4 mg sublingual Q5M PRN chest 04/20/23 03/01/24 Rx tablet pain #30 tabs nitroglycerin 0.4 mg/hr 1 patch topical DAILY 04/26/23 03/01/24 History transdermal 24 hour patch naloxone 4 mg/actuation nasal spray 1 spray intranasal Q3M PRN opioid 07/06/23 03/01/24 Rx overdose #2 ea omeprazole 20 mg capsule,delayed 20 mg PO DAILY 09/16/23 03/01/24 History release aspirin 81 mg chewable tablet 81 mg PO DAILY 03/01/24 03/01/24 History furosemide 40 mg tablet (Lasix) 40 mg PO UD 03/01/24 03/01/24 History spironolactone 25 mg tablet 12.5 mg PO UD 03/01/24 03/01/24 History Patient History Medical History Acute diastolic (congestive) heart failure Encounter for pre-operative examination Gastritis "Getting under control" MVP (mitral valve prolapse) Not noted on 03/2016 echo (Mild MR was present) History of syncope Previously followed with cardiology, per Dr Lockhart ([facility]), "syncope in the setting of polypharmacy for severe low back pain." Last seen by cardio 11/2018, to follow up PRN per cardio. History of blood transfusion Pt reports post-op after hip surgery and lumbar surgery Migraine Gastric ulcer GERD (gastroesophageal reflux disease) Surgical History History of anesthesia reaction "severe hypotension" per patient following second back surgery. ([facility] 2017). Review of records shows documentation from anesthesia that hypotension was treated in PACU, BP in post-anesthetic evaluation 92/51. Subsequent intrathecal pain pump (03/19/20): Grade view 1, MAC#3, ETT 6.5 at [facility] without issue noted per post-op anesthesia progress note/discharge summa ry. History of cholecystectomy S/P hardware removal Left hip x2 History of dilatation and curettage S/P CECILIA-BSO History of colonoscopy History of esophagogastroduodenoscopy (EGD) History of cataract surgery R/L History of cardiac cath Approximately 1994 > no stents H/O spinal fusion Extensive [id number] (x2 lumbar fusions) History of appendectomy Family History Mother Family history of diabetes mellitus Grandmother (Maternal) Family history of diabetes mellitus Grandmother (Paternal) Family history of diabetes mellitus Other No family history of adverse response to anesthesia Social History Smoking Status: Current every day smoker Tobacco Type: Cigarettes packs per day: 0.5; Cigarettes Per Day: 10; Second Hand Exposure: No; Do You Dip or Chew Tobacco: No; Hx Alcohol Use: No Hx Substance Use: No Preferred Language: Trinidadian Communication Ability: Effective Visual Impairment: No Limitations Hearing Ability: Normal Coat Agent Required: No Beliefs That Will Affect Care: None marital status: Current Living Situation: Spouse Current Living Situation Comment: Andre current occupational status: retired Feels Safe at Home: Yes Safety Concerns: Feels Safe At This Time Assistive Devices: Walker Review of Systems Review of Systems: See HPI for pertinent positives. All others negative other than those noted in the HPI. CONSTITUTIONAL: No change in weight, No weakness, No fatigue, No fevers, No sweats or chills. HEENT: No visual changes, No epistaxis, No bleeding gums, No dysphagia, PULMONARY: +dry cough, shortness of breath, recent change in breathing. No sputum, or hemoptysis, or No wheezing. CARDIOVASCULAR: +chest pain, dyspnea on exertion, edema, palpitations. No syncope, No claudication, No calf pain. GASTROINTESTINAL: +nausea, vomiting, poor appetite, blood in stool. No abdominal pain, No change in bowel habits, No significant heartburn, No diarrhea, No constipation, No dysphagia. HEMATOLOGIC: No abnormal bleeding and No bruising. NEUROLOGICAL: No falls, No dizziness, No lightheadedness, Normal balance, No headaches, and No weakness. PSYCH: +sleep disturbances. No mood changes. Physical Exam Physical Exam: Vital signs within normal limits as above. General: Malnourished and frail appearing. Cooperative. No acute distress. A+Ox3. HEENT: Normocephalic. Atraumatic. EOMI. Conjunctiva and sclera clear. NECK: Trachea midline. No thyromegaly. No carotid bruits. Carotid upstrokes are brisk. Heart: RRR. S1 and S2 noted. No murmur. No rubs or gallops. PMI non displaced. Lungs: No acute respiratory distress. Diminished breath sounds throughout posterior lower lobes. Clear to auscultation throughout upper lobes. No wheezes.No rhonchi. No rales. Abdomen: Hypoactive bowel sounds. Soft. Nontender. No guarding or rebound tenderness. Extremities: Normal capillary refill. +2 pitting edema on bilateral lower extremities. No clubbing or cyanosis. Musculoskeletal: Kyphosis. Pulses: radial=2/4. Skin: Warm and dry. NEURO: No focal deficits. PSYCH: Appropriate affect and insight. Results & Data Vital Signs (Past 12 Hours) Vital Signs Temp Pulse Pulse Pulse Resp BP Pulse Ox 03/02/24 09:37 03/02/24 08:43 36.6 C 80 161/102 H 93 03/02/24 08:21 95 H 21 127/93 95 03/02/24 07:19 65 03/02/24 06:00 99 H 20 98 03/02/24 00:37 77 16 99/68 L 90 O2 Del Method O2 Flow Rate 03/02/24 09:37 Nasal Cannula 2 03/02/24 08:43 Room Air 03/02/24 08:21 Nasal Cannula 2 03/02/24 07:19 03/02/24 06:00 Nasal Cannula 2 03/02/24 00:37 Nasal Cannula 2 Laboratory Results Cardiac Enzymes 03/01/24 03/02/24 Range/Units 11:46 06:40 AST 17 14 (13-39) U/L Troponin I High Sens 12.9 (0-14) pg/ml B-Natriuretic Peptide 765 H (0-100) pg/ml Coagulation 03/01/24 03/01/24 03/02/24 Range/Units 11:46 14:37 06:40 PT 11.2 11.3 11.5 (9.0-12.0) Seconds APTT 31 (21-31) Seconds B-Natriuretic Peptide 765 H (0-100) pg/ml CBC 03/01/24 03/02/24 Range/Units 11:46 06:40 WBC 7.65 7.54 (4.8-10.8) K/ul RBC 4.32 4.21 (4.20-5.40) M/uL Hgb 13.2 12.7 (12.0-16.0) g/dl Hct 42.4 40.7 (37.0-47.0) % Plt Count 296 259 (130-400) K/uL Neut # (Auto) 6.14 6.05 (1.40-6.50) K/uL Lymph # (Auto) 0.70 L 0.82 L (1.20-3.40) K/uL [place] # (Auto) 0.63 H 0.48 (0.11-0.59) K/uL Eos # (Auto) 0.09 0.07 (0.00-0.50) K/uL Baso # (Auto) 0.07 0.09 (0.00-0.20) K/uL Comprehensive Metabolic Panel 03/01/24 03/02/24 Range/Units 11:46 06:40 Sodium 141 142 (136-145) mmol/L Potassium 3.7 3.9 (3.5-5.1) mmol/L Chloride 101 103 (98-107) mmol/L Carbon Dioxide 33 H 32 (21-32) mmol/L BUN 23 21 (6-23) mg/dl Creatinine 0.85 0.78 (0.6-1.2) mg/dl Glucose 90 103 H (70-99(Fasting)) mg/dl Calcium 8.9 8.6 (8.6-10.3) mg/dl AST 17 14 (13-39) U/L ALT 11 8 (7-52) U/L Alkaline Phosphatase 194 H 191 H (34-104) U/L Total Protein 6.9 6.4 (6.0-8.3) gm/dl Albumin 3.9 3.8 (3.4-5.0) gm/dl Intake and Output 03/01/24 03/02/24 03/02/24 22:59 06:59 14:59 Output Total 200 / 200 Balance -200 / -100 Output: Urine 200 / 200 Other: # Unmeasured Voids 1 # Urine Diapers 1 Weight 49 kg 42 kg Weight Measurement Method Wheelchair Standing Scale Patient Weight 03/03/24 06:59 Weight 42 kg Diagnostic Findings Telemetry over the past 24 hours reviewed. Normal sinus rhythm with rates 60 to 100s. 2 runs of paroxysmal atrial tachycardia at 20:02 and 07:01 on telemetry. Reviewed EKG 03/02/24 at 05:12:43: NSR with premature supraventricular complexes Low voltage QRS 79 bpm QTc 399 Reviewed EKG 03/01/24 at 12:07:30: NSR with sinus arrhythmia Low voltage QRS 62 bpm QTc 606 Reviewed ECHO from 04/18/23: Mild concentric left ventricular hypertrophy No regional WMAs Left ventricular systolic function is normal LVEF = 60-65% Moderately dilated left atrium Moderate to severe early systolic mitral regurgitation is present Mild tricuspid regurgitation Mild pulmonary hypertension with pulmonary artery systolic pressure estimated to be 43 mmHg Reviewed Nuclear Stress Test from 11/08/22: Equivocal pharmacologic myocardial perfusion imaging study with symptoms of chest discomfort observed after the administration of Lexiscan, equivocal EKG changes. The stress and rest myocardial perfusion images were normal. Chest X-Ray 03/01/24 10:54 SINGLE VIEW CHEST CLINICAL HISTORY: Atypical chest pain. FINDINGS: An AP, portable, upright chest radiograph is compared to study dated 04/17/2023. Correlation is made with chest CT dated 03/31/2023. The examination is degraded by portable technique and patient rotation. The heart is enlarged noting atherosclerotic calcification of the thoracic aorta. The pulmonary vasculature is noncongested. Chronic interstitial thickening is similar to previous. There is bibasilar scarring/atelectasis. No airspace consolidation or large pleural effusion is identified. No pneumothorax is seen. The skeletal structures are osteopenic. There are chronic/healed right-sided rib fractures. Extensive postsurgical change is seen throughout the imaged thoracolumbar spine. There is chronic deformity of the right proximal humerus. An electronic device projects over the left upper abdomen. IMPRESSION: Cardiomegaly with no active disease in the chest. ACT 112: Negative or not required by law. Electronically signed by: Elver Herrera M.D. 03/01/2024 11:56 AM
[2024-03-02] MEDS: ACETAMINOPHEN 325 MG TAB PO PRN (15:30)
[2024-03-02] MEDS: WARFARIN SOD 5 MG TAB PO SCH (16:27)
[2024-03-02] MEDS: PROMETHAZINE 12.5 MG/50.5 ML BAG IV PRN (19:52)
[2024-03-03 03:57] LABS: Appearance Urine Clear (Clear); Bilirubin Urine Negative (Negative); Blood Urine Negative (Negative); Color Urine Yellow; Glucose Urine UA Negative (Negative); Ketones Urine Negative (Negative); Leukocyte Esterase Urine Negative (Negative); Nitrite Urine Negative (Negative); Protein Urine Negative (Negative); Specific Gravity Urine 1.012 (1.000-1.030); Urobilinogen Urine Negative (Negative)
[2024-03-03 06:39] LABS: Hematocrit (blood only) 34.4 % (37.0-47.0); Hemoglobin 11.1 g/dl (12.0-16.0); Mean Corpuscular Hemoglobin 30.7 pg (25.0-34.0); Mean Corpuscular Hgb Conc 32.3 g/dL (32.0-36.0); Mean Platelet Volume 10.2 fL (9.4-12.4); Platelet Count 228 K/uL (130-400); RDW Coefficient of Variation 15.3 % (11.5-14.5); RDW Standard Deviation 53.4 fL (36.4-46.3); Red Blood Count 3.62 M/uL (4.20-5.40); White Blood Count 7.81 K/ul (4.8-10.8)
[2024-03-03 07:11] LABS: BUN Creatinine Ratio 24.3 (10-20); Creatinine Clr Calc Pharmacy 40.6 ml/min; Magnesium 2.1 mg/dl (1.7-2.4); Potassium 3.9 mmol/L (3.5-5.1)
--- NOTE | 2024-03-03 09:31 | Hospitalist Progress Note ---
Date of Service March 03, 2024 Assessment & Plan (1) Acute on chronic heart failure with preserved ejection fraction (HFpEF): (2) CAD (coronary artery disease): (3) Paroxysmal atrial fibrillation: (4) COPD (chronic obstructive pulmonary disease): Plan This is a 78-year-old female who has significant past medical history of PAF anticoagulated with warfarin, chronic HFpEF, HLD, HTN, mitral insufficiency, COPD, chronic tobacco use, GERD, chronic back pain who presents to ED secondary to worsening lower extremity swelling. Acute on Chronic HFpEF CAD admitted to med tele pt with 10 lbs weight gain and increased lower ext edema over last 2-3 weeks Pt lasix increased to 40mg BID orally w/o improvement obtained b/l venous Doppler - negat. for DVT, no active cellulitis, consult wound care BNP elevated last echo 05/01 which revealed LVEF 60 to 65%, left atrium moderately dilated, moderate to severe early systolic mitral regurgitation, mild tricuspid regurg, mild pulmonary hypertension. IV Lasix 40mg BID, strict I and O, daily weight continue aldactone, metoprolol, imdur, ASA, statin supplement K, follow bmp Cardiology consulted - repeated echo, IV lasix -> torsemide 10 mg daily , metoprolol dose increased to 25 bid Urged use of oxygen at home, tobacco cessation PAF NSR on ECG INR 1.0, pt reports taking medication but I question compliance Lovenox BID and warfarin until INR > 2 COPD Chronic tobacco abuse encourage cessation, no acute exacerbation Chronic Back pain Presence of intrathecal pain pump continue home prn meds Ambulatory dysfunction 2/2 above PT/OT DVT ppx: SQ Lovenox/Warfarin, D/C Lovenox when INR > 2 DNR/DNI PCP: Dr. Rodgers Dispo: med tele, pt lives with , walks with rollator, PT/OT -> recommend rehab Admission and Anticipated Discharge Date Admission Date: March 01, 2024 Subjective Pt seen in follow up, for chf and LE edema Currently sitting up in chair in NAD Says LE edema is already much improved Reports being a smoker, currently using suppl. O2 Denies any chest pain or shortness of breath Seen by cardiology, medications adjusted as below Review of Systems Review of Systems: All systems reviewed & are unremarkable except as noted in Subjective Physical Exam Physical Exam: Constitutional: thin/ cachetic , chronically ill appearing F in NAD, on suppl. O2 Head: Normocephalic, Atraumatic Eyes: PERRL, conjunctivae normal, anicteric sclerae ENMT: external ear and nose normal, oropharynx normal Neck: normal visual inspection Respiratory: normal respiratory effort, breath sounds decreased at bases, no wheezing Cardiovascular: RRR, no murmur, no edema Chest: normal inspection of chest Abdomen: normal bowel sounds, soft, nontender Musculoskeletal: + LE edema (much improved), moves extremities Skin: no rashes, warm, dry Neurologic: PERRL, EOMI, no face palsy, no dysarthria, moves all extremities Psychiatric: A+Ox3, euthymic affect Results & Data Results & Data Vital Signs (Past 12 Hours) Vital Signs Temp Pulse Pulse Resp BP Pulse Ox O2 Del Method 03/03/24 08:38 Nasal Cannula 03/03/24 08:24 36.5 C 68 16 94 Nasal Cannula 03/03/24 07:02 71 03/03/24 03:32 36.6 C 68 20 163/93 H 95 Room Air 03/02/24 23:17 36.6 C 67 20 125/73 95 Nasal Cannula 03/02/24 21:51 58 L O2 Flow Rate 03/03/24 08:38 2 03/03/24 08:24 1 03/03/24 07:02 03/03/24 03:32 03/02/24 23:17 2 03/02/24 21:51 Laboratory Results 03/03/24 03/03/24 Range/Units Unknown 06:16 WBC 7.81 (4.8-10.8) K/ul RBC 3.62 L (4.20-5.40) M/uL Hgb 11.1 L (12.0-16.0) g/dl Hct 34.4 L (37.0-47.0) % MCV 95.0 (80.0-100.0) fL MCH 30.7 (25.0-34.0) pg MCHC 32.3 (32.0-36.0) g/dL RDW Std Deviation 53.4 H (36.4-46.3) fL RDW Coeff of [place] 15.3 H (11.5-14.5) % Plt Count 228 (130-400) K/uL MPV 10.2 (9.4-12.4) fL Sodium 140 (136-145) mmol/L Potassium 3.9 (3.5-5.1) mmol/L Chloride 102 (98-107) mmol/L Carbon Dioxide 32 (21-32) mmol/L Anion Gap 6 (3-11) BUN 18 (6-23) mg/dl Creatinine 0.74 (0.6-1.2) mg/dl Est Cr Clr Drug Dosing 40.6 ml/min eGFR 82.25 BUN/Creatinine Ratio 24.3 H (10-20) Glucose 137 H (70-99(Fasting)) mg/dl Calcium 9.0 (8.6-10.3) mg/dl Phosphorus 3.0 (2.5-4.9) mg/dl Magnesium 2.1 (1.7-2.4) mg/dl Urine Color Yellow Urine Appearance Clear (Clear) Urine pH 8.0 H (4.5-7.5) Ur Specific [place] 1.012 (1.000-1.030) Urine Protein Negative (Negative) Urine Glucose (UA) Negative (Negative) Urine Ketones Negative (Negative) Urine Blood Negative (Negative) Urine Nitrite Negative (Negative) Urine Bilirubin Negative (Negative) Urine Urobilinogen Negative (Negative) Ur Leukocyte Esterase Negative (Negative) Medications Administered Current Inpatient Medications Acetaminophen (Acetaminophen 325 Mg Tab) 650 mg PO Q4H PRN PRN Reason: Pain or Fever Stop: 03/31/24 15:43 Last Admin: 03/02/24 15:30 Dose: 650 mg Hydrocodone Bitart/Acetaminophen (Hydrocodone/Acetamophen 5/325mg Tab) 1 tab PO Q4H [facility] Stop: 03/15/24 16:14 Last Admin: 03/03/24 07:41 Dose: 1 tab Al Hydrox/Mg Hydrox/Simethicone (Aluminum/Magnesium Susp 30 Ml Udc) 15 ml PO Q4H PRN PRN Reason: Dyspepsia Stop: 03/31/24 15:43 Aspirin (Aspirin 81 Mg Chew) 81 mg PO DAILY [facility] Stop: 04/01/24 08:59 Last Admin: 03/03/24 07:40 Dose: 81 mg Atorvastatin Calcium (Atorvastatin 10 Mg Tab) 10 mg PO QAM [facility] Stop: 04/01/24 08:59 Last Admin: 03/03/24 07:41 Dose: 10 mg Buspirone HCl (Buspirone 5 Mg Tab) 5 mg PO BID [facility] Stop: 03/31/24 20:59 Last Admin: 03/03/24 07:41 Dose: 5 mg Calcium/Vitamin D (Calcium 600mg + Vit D 400 Iu Tab) 1 tab PO DAILY REJI Stop: 04/01/24 08:59 Last Admin: 03/03/24 07:41 Dose: 1 tab Enoxaparin Sodium (Enoxaparin Inj 60 Mg/0.6 Ml Syr) 50 mg SQ Q12H REJI Stop: 03/31/24 15:59 Last Admin: 03/03/24 03:39 Dose: 50 mg Furosemide (Furosemide 40 Mg/4 Ml Vial) 40 mg IV BID17 REJI Stop: 03/31/24 16:59 Last Admin: 03/03/24 07:40 Dose: 40 mg Promethazine HCl (Phenergan) 12.5 mg in 50.5 mls @ 202 mls/hr IV Q6H PRN PRN Reason: Nausea And Vomiting Stop: 04/01/24 19:27 Last Infusion: 03/02/24 20:07 Dose: Infused Isosorbide Mononitrate (Isosorbide [place] Extended Rel 30 Mg Tabcr) 30 mg PO QAM [facility] Stop: 04/01/24 08:59 Last Admin: 03/03/24 07:41 Dose: 30 mg Magnesium Hydroxide (Magnesium Hydroxide Susp 30 Ml Udc) 30 ml PO Q12H PRN PRN Reason: Constipation Stop: 03/31/24 15:43 Metoprolol Succinate (Metoprolol Succ 25mg Ext Rel Tab) 25 mg PO BID [facility] Stop: 04/01/24 20:59 Last Admin: 03/03/24 07:42 Dose: 25 mg Miscellaneous (Remove Nitro-Dur Patch) 1 each N/A DAILY@0859 [facility] Stop: 04/02/24 08:58 Last Admin: 03/03/24 07:42 Dose: 1 each Multivitamins (Multivitamin Tab) 1 tab PO QAM [facility] Stop: 04/01/24 08:59 Last Admin: 03/03/24 07:42 Dose: 1 tab Nitroglycerin (Nitroglycerin 0.4 Mg/Hr Patch) 1 patch TD DAILY [facility] Stop: 04/01/24 08:59 Last Admin: 03/03/24 07:42 Dose: 1 patch Ondansetron HCl (Ondansetron Inj 2 Mg/Ml 2 Ml Vial) 4 mg IV Q6H PRN PRN Reason: Nausea Stop: 03/31/24 15:43 Pantoprazole Sodium (Pantoprazole 40 Mg Tab) 40 mg PO DAILY [facility]; Protocol Stop: 04/01/24 08:59 Last Admin: 03/03/24 07:41 Dose: 40 mg Polyethylene Glycol (Polyethylene (Miralax) 17 Gm Pack) 17 gm PO DAILY PRN PRN Reason: Constipation Stop: 03/31/24 15:43 Last Admin: 03/01/24 18:15 Dose: 17 gm Potassium Chloride (Potassium Chloride Crtab 20 Meq Tabcr) 20 meq PO BID [facility] Stop: 03/31/24 15:43 Last Admin: 03/03/24 07:41 Dose: 20 meq Spironolactone (Spironolactone 12.5 Mg Tab) 12.5 mg PO MoWeFr@0900 [facility] Stop: 03/31/24 15:59 Last Admin: 03/03/24 07:41 Dose: 12.5 mg Trazodone HCl (Trazodone Hcl 100 Mg Tab) 200 mg PO HS [facility] Stop: 03/31/24 20:59 Last Admin: 03/02/24 20:11 Dose: 200 mg Warfarin Sodium (Warfarin Sod 5 Mg Tab) 5 mg PO SuTuThSa@1600 [facility] Stop: 04/01/24 15:59 Last Admin: 03/02/24 16:27 Dose: 5 mg Warfarin Sodium (Warfarin Sod 7.5 Mg Tab) 7.5 mg PO MoWeFr@1600 [facility] Stop: 03/31/24 15:59 Last Admin: 03/01/24 16:46 Dose: 7.5 mg (2) CAD (coronary artery disease) Associated angina: with unspecified form of angina Coronary Disease- Associated Artery/Lesion type: [place] artery [place] vs. transplanted heart: [place] heart Qualified Code(s): I25.119 - Atherosclerotic heart disease of [place] coronary artery with unspecified angina pectoris
--- NOTE | 2024-03-03 09:50 | Cardiology Progress Note ---
Date of Service March 03, 2024 Assessment & Plan (1) Acute on chronic heart failure with preserved ejection fraction (HFpEF): (2) Paroxysmal atrial fibrillation: (3) CAD (coronary artery disease): (4) Mitral regurgitation: (5) HTN (hypertension): (6) HLD (hyperlipidemia): (7) Smoker: Plan 78-year-old female who presented to the ED with worsening bilateral lower extremity edema with seeping fluid, shortness of breath, 10 lb weight gain, and dry cough over the past two weeks. Resting comfortably in bed upon examination today. Moderate-severe mitral regurgitation Acute on chronic HFpEF, NYHA Class III-IV Diuresed on IV furosemide 40 mg BID Doing well on IV diuresis with -1L output Euvolemic upon examination today Recent ECHO with LVEF 60-65%, moderate LVH, grade II diastolic dysfunction, severely dilated left atrium, moderate mitral regurgitation, and mild pulmonary hypertension Kidney function stable upon lab review K+ 3.9 on mornings labs and replaced Transition from IV furosemide to oral torsemide 10 mg p.o. daily Continue spironolactone 12.5 mg on MWF Record daily weights Document accurate I&Os Maintain sodium restriction with less than 2g/day Maintain fluid restriction with less than 64 ounces daily Monitor and replace electrolytes as needed with goal K+ 4.0 and Mg 2.0 Paroxysmal AFIB, [id number] (age +2, gender, CHF, HTN, CAD) Patient with intermittent palpitations and heart fluttering Heart rates 60s on telemetry with 1 short run of PAT Continue metoprolol 25 mg PO twice daily Continue bridge from Lovenox to warfarin until INR >2 Coronary artery disease No recurrent chest pain since yesterday EKG with no acute ischemic changes Troponin negative Previous nuclear stress test on 11/09/22 with chest discomfort observed after administration of Lexiscan and equivocal EKG changes but no reversible perfusion defects. Patient opted for medical management at that time. Continue aspirin 81 mg daily Continue isosorbide mononitrate 30 mg daily Hypertension Blood pressure elevated at 163/93, improved after receiving morning meds at 142/73 Continue metoprolol Continue isosorbide mononitrate Hyperlipidemia Continue atorvastatin 10 mg daily Chronic tobacco use Encouraged smoking cessation Patient not interested in quitting at this time Admission and Anticipated Discharge Date Admission Date: March 01, 2024 Supervising Physician Co-Signing Physician Notes Patient was seen and personally examined. Chart medications telemetry reviewed. Patient had a prompt clinical response to diuretics Echocardiogram without significant change Clinically stable from cardiac standpoint plan as outlined will change IV furosemide to oral torsemide 10 mg p.o. daily Continue spironolactone 12.5 mg Wednesday Metoprolol succinate 25 mg twice per day Urged use of oxygen at home, tobacco cessation CHF instructions Subjective 78-year-old female with past medical history significant for chronic HFpEF NYHA Class III, paroxysmal AFIB (on warfarin), valvular disease with moderate mitral regurgitation, CAD, HTN, HLD, COPD, and chronic tobacco use who presented to the ED for evaluation of worsening lower extremity swelling. Recently seen and evaluated at an outside hospital for a fall several weeks ago. Work-up with x-rays revealed no traumatic injury. She developed leg swelling and redness after discharge home. She was readmitted to the hospital. Discharged on antibiotics and Lasix. Lower leg redness improved, but swelling continued to worsen over the past two weeks. She took oral Lasix 40 mg twice daily with no improvement. She decided to come into the hospital after noticing fluid seeping from lower legs. Has gained 10 lbs over the course of two weeks. Worsening shortness of breath. Activity is limited, but uses walker for short distances at home. Dyspnea on exertion with walking to bathroom. Sleeps in a recliner at home. Difficulty sleeping at night with waking up short of breath. Occasional heart fluttering and skipped beats occurring every 2-3 days. She reports intermittent, non-radiating left-sided chest pressure occurring at rest in the ED. Rated at 4-5 out of 10. Lasted for 20 minutes. Pain resolved. She did not receive a Nitro patch. EKG with no acute ischemic changes. Troponin negative. BNP elevated at 765. CXR showed cardiomegaly without pleural effusion. She underwent a nuclear stress test on 11/09/22 with symptoms of chest discomfort observed after administration of Lexiscan and equivocal EKG changes but no reversible perfusion defects. Patient opted for medical management at that time. Last ECHO in 04/2023 showing LVEF 60-65%, mild left ventricular hypertrophy, moderately dilated left atrium, moderate to severe mitral regurgitation, mild tricuspid regurgitation, and mild pulmonary hypertension. Resting comfortably in bed. She states that she is feeling about the same as yesterday. Lower extremity swelling has improved. Denies recurrent chest pain, palpitations, lightheadedness, dizziness, or shortness of breath at rest. She notes mild dyspnea on exertion with ambulating to bathroom. ECHO yesterday revealed LVEF 60-65%, moderate left ventricular hypertrophy, grade II diastolic dysfunction, severely dilated left atrium, moderate mitral regurgitation, and mild pulmonary hypertension. Chart, medications, and telemetry over the past 24 hours reviewed. Review of Systems Review of Systems: See HPI for pertinent positives. All others negative other than those noted in the HPI. CONSTITUTIONAL: No change in weight, No weakness, No fatigue, No fevers, No sweats or chills. HEENT: No visual changes, No epistaxis, No bleeding gums, No dysphagia. PULMONARY: +shortness of breath. No cough, sputum, or hemoptysis, No recent change in breathing or No wheezing. CARDIOVASCULAR: +dyspnea on exertion. No chest pain, No edema, No palpitations, No syncope, No claudication, No calf pain. GASTROINTESTINAL: No nausea, No vomiting, No change in appetite, No abdominal pain, No change in bowel habits, No significant heartburn, No diarrhea, No constipation, No dysphagia. HEMATOLOGIC: No abnormal bleeding and No bruising. NEUROLOGICAL: No falls, No dizziness, No lightheadedness, Normal balance, No headaches, and No weakness. PSYCH: No sleep disturbances. No mood changes. Physical Exam Physical Exam: Vital signs within normal limits as above. General: Malnourished and frail appearing. Cooperative. No acute distress. A+Ox3. HEENT: Normocephalic. Atraumatic. EOMI. Conjunctiva and sclera clear. NECK: Trachea midline. No thyromegaly. No carotid bruits. No JVD. Carotid upstrokes are brisk. Heart: RRR. S1 and S2 noted. No murmur. No rubs or gallops. PMI non displaced. Lungs: No acute respiratory distress. Coarse crackles auscultated throughout lower lobes. No wheezes.No rhonchi. Abdomen: Soft. Nontender. No guarding or rebound tenderness. Extremities: Normal capillary refill. No edema. No clubbing or cyanosis. Musculoskeletal: Kyphosis. Pulses: radial=2/4. Skin: Warm and dry. NEURO: No focal deficits. PSYCH: Appropriate affect and insight. Results & Data Vital Signs (Past 12 Hours) Vital Signs Temp Pulse Pulse Resp BP Pulse Ox O2 Del Method 03/03/24 08:38 Nasal Cannula 03/03/24 08:24 36.5 C 68 16 94 Nasal Cannula 03/03/24 07:02 71 03/03/24 03:32 36.6 C 68 20 163/93 H 95 Room Air 03/02/24 23:17 36.6 C 67 20 125/73 95 Nasal Cannula 03/02/24 21:51 58 L O2 Flow Rate 03/03/24 08:38 2 03/03/24 08:24 1 03/03/24 07:02 03/03/24 03:32 03/02/24 23:17 2 03/02/24 21:51 Laboratory Results CBC 03/03/24 Range/Units 06:16 WBC 7.81 (4.8-10.8) K/ul RBC 3.62 L (4.20-5.40) M/uL Hgb 11.1 L (12.0-16.0) g/dl Hct 34.4 L (37.0-47.0) % Plt Count 228 (130-400) K/uL Comprehensive Metabolic Panel 03/03/24 Range/Units 06:16 Sodium 140 (136-145) mmol/L Potassium 3.9 (3.5-5.1) mmol/L Chloride 102 (98-107) mmol/L Carbon Dioxide 32 (21-32) mmol/L BUN 18 (6-23) mg/dl Creatinine 0.74 (0.6-1.2) mg/dl Glucose 137 H (70-99(Fasting)) mg/dl Calcium 9.0 (8.6-10.3) mg/dl Intake and Output 03/02/24 03/03/24 03/03/24 22:59 06:59 14:59 Intake Total 610.5 / 1210.5 360 / 1210.5 Output Total 1050 / 2250 600 / 2250 Balance -439.5 / -1039.5 -240 / -1039.5 Intake: IV 50.5 / 50.5 Promethazine 12.5 mg In 50.5 ml 50.5 / 50.5 @ 202 mls/hr IV Q6H PRN Rx#: [id number] Oral 560 / 1160 360 / 1160 Output: Urine 1050 / 1750 100 / 1750 Urine Amount (Catheter) 500 / 500 Straight 500 / 500 Other: Weight 42 kg 41.7 kg Weight Measurement Method Built in [facility] Diagnostic Findings Telemetry over the past 24 hours reviewed. Normal sinus rhythm with rates 50 to 60s. 1 short run of paroxysmal atrial tachycardia at 06:51 AM on telemetry. Reviewed ECHO from 03/02/24: Moderate left ventricular hypertrophy LVEF = 60-65% Grade II diastolic dysfunction Severely dilated left atrium Trace aortic regurgitation Moderate mitral regurgitation Right ventricular systolic pressure elevated at 40-50 mmHg Reviewed EKG 03/02/24 at 05:12:43: NSR with premature supraventricular complexes Low voltage QRS 79 bpm QTc 399 Reviewed EKG 03/01/24 at 12:07:30: NSR with sinus arrhythmia Low voltage QRS 62 bpm QTc 606 Reviewed ECHO from 04/18/23: Mild concentric left ventricular hypertrophy No regional WMAs Left ventricular systolic function is normal LVEF = 60-65% Moderately dilated left atrium Moderate to severe early systolic mitral regurgitation is present Mild tricuspid regurgitation Mild pulmonary hypertension with pulmonary artery systolic pressure estimated to be 43 mmHg Reviewed Nuclear Stress Test from 11/08/22: Equivocal pharmacologic myocardial perfusion imaging study with symptoms of chest discomfort observed after the administration of Lexiscan, equivocal EKG changes. The stress and rest myocardial perfusion images were normal. Chest X-Ray 03/01/24 10:54 SINGLE VIEW CHEST CLINICAL HISTORY: Atypical chest pain. FINDINGS: An AP, portable, upright chest radiograph is compared to study dated 04/17/2023. Correlation is made with chest CT dated 03/31/2023. The examination is degraded by portable technique and patient rotation. The heart is enlarged noting atherosclerotic calcification of the thoracic aorta. The pulmonary vasculature is noncongested. Chronic interstitial thickening is similar to previous. There is bibasilar scarring/atelectasis. No airspace consolidation or large pleural effusion is identified. No pneumothorax is seen. The skeletal structures are osteopenic. There are chronic/healed right-sided rib fractures. Extensive postsurgical change is seen throughout the imaged thoracolumbar spine. There is chronic deformity of the right proximal humerus. An electronic device projects over the left upper abdomen. IMPRESSION: Cardiomegaly with no active disease in the chest. ACT 112: Negative or not required by law. Electronically signed by: Elver Herrera M.D. 03/01/2024 11:56 AM
[2024-03-03] MEDS: TORSEMIDE 10 MG TAB PO SCH (16:32)
--- NOTE | 2024-03-03 23:48 | Electrocardiogram Report ---
Test Reason : Blood Pressure : */* mmHG Vent. Rate : 62 BPM Atrial Rate : 62 BPM P-R Int : 142 ms QRS Dur : 70 ms QT Int : 392 ms P-R-T Axes : 74 -1 56 degrees QTcB Int : 398 ms Normal sinus rhythm with sinus arrhythmia Low voltage QRS Cannot rule out Anterior infarct (cited on or before 08-Nov-2022) Nonspecific T wave abnormality Abnormal ECG When compared with ECG of 20-Apr-2023 05:04, No significant change Confirmed by Mani Barroso ([id number]) on 03/03/2024 11:48:35 PM Referred By: REFERRED SELF Confirmed By: Mani Barroso
--- NOTE | 2024-03-03 23:49 | Electrocardiogram Report ---
Test Reason : Blood Pressure : */* mmHG Vent. Rate : 79 BPM Atrial Rate : 79 BPM P-R Int : 138 ms QRS Dur : 62 ms QT Int : 348 ms P-R-T Axes : 82 -21 64 degrees QTcB Int : 399 ms Poor data quality, interpretation may be adversely affected Sinus rhythm with Premature supraventricular complexes Low voltage QRS Septal infarct (cited on or before 08-Nov-2022) Nonspecific T wave abnormality Abnormal ECG When compared with ECG of 01-Mar-2024 12:07, Premature supraventricular complexes are now Present Confirmed by Mani Barroso ([id number]) on 03/03/2024 11:49:28 PM Referred By: REFERRED SELF Confirmed By: Mani Barroso
[2024-03-04 07:34] VITALS: O2SAT 96
--- NOTE | 2024-03-04 09:27 | Cardiology Progress Note ---
Date of Service March 04, 2024 Assessment & Plan (1) Acute on chronic heart failure with preserved ejection fraction (HFpEF): (2) Paroxysmal atrial fibrillation: (3) CAD (coronary artery disease): (4) Mitral regurgitation: (5) HTN (hypertension): (6) HLD (hyperlipidemia): (7) Smoker: Plan 78-year-old female who presented to the ED with worsening bilateral lower extremity edema with seeping fluid, shortness of breath, 10 lb weight gain, and dry cough over the past two weeks. Resting comfortably in bed upon examination today. Moderate-severe mitral regurgitation Acute on chronic HFpEF, NYHA Class III-IV Diuresed on IV furosemide 40 mg BID Doing well on IV diuresis with -1L output Euvolemic upon examination today Recent ECHO with LVEF 60-65%, moderate LVH, grade II diastolic dysfunction, severely dilated left atrium, moderate mitral regurgitation, and mild pulmonary hypertension Kidney function stable upon lab review K+ 3.9 on mornings labs and replaced Transition from IV furosemide to oral torsemide 10 mg p.o. daily Continue spironolactone 12.5 mg on MWF Record daily weights Document accurate I&Os Maintain sodium restriction with less than 2g/day Maintain fluid restriction with less than 64 ounces daily Monitor and replace electrolytes as needed with goal K+ 4.0 and Mg 2.0 Paroxysmal AFIB, [id number] (age +2, gender, CHF, HTN, CAD) Patient with intermittent palpitations and heart fluttering Heart rates 60s on telemetry with 1 short run of PAT Continue metoprolol 25 mg PO twice daily Continue bridge from Lovenox to warfarin until INR >2 Coronary artery disease No recurrent chest pain since yesterday EKG with no acute ischemic changes Troponin negative Previous nuclear stress test on 11/09/22 with chest discomfort observed after administration of Lexiscan and equivocal EKG changes but no reversible perfusion defects. Patient opted for medical management at that time. Continue aspirin 81 mg daily Continue isosorbide mononitrate 30 mg daily Hypertension Blood pressure elevated at 163/93, improved after receiving morning meds at 142/73 Continue metoprolol Continue isosorbide mononitrate Hyperlipidemia Continue atorvastatin 10 mg daily Chronic tobacco use Encouraged smoking cessation Patient not interested in quitting at this time 03/04/2024 No acute card complaints. Blood pressure heart rate and edema now improved. Lab work pending No significant arrhythmia Medication adjustments as noted metoprolol succinate increased to 25 mg twice per day, furosemide increased to 60 mg p.o. daily Urged ongoing oxygen use and tobacco cessation Will sign off call with questions Admission and Anticipated Discharge Date Admission Date: March 01, 2024 Subjective Patient seen and examined, telemetry reviewed No significant arrhythmias. Breathing status stable. No dizziness or lightheadedness. Wears oxygen chronically no hypoxia Peripheral edema resolved Review of Systems Review of Systems: All systems reviewed & are unremarkable except as noted in Subjective Physical Exam Physical Exam: General: Malnourished and frail appearing. Cooperative. No acute distress. A+Ox3. HEENT: Normocephalic. Atraumatic. EOMI. Conjunctiva and sclera clear. NECK: Trachea midline. No thyromegaly. No carotid bruits. No JVD. Carotid upstrokes are brisk. Heart: RRR. S1 and S2 noted. No murmur. No rubs or gallops. PMI non displaced. Lungs: No acute respiratory distress. Coarse crackles auscultated throughout lower lobes. No wheezes.No rhonchi. Abdomen: Soft. Nontender. No guarding or rebound tenderness. Extremities: Normal capillary refill. No edema. No clubbing or cyanosis. Musculoskeletal: Kyphosis. Pulses: radial=2/4. Skin: Warm and dry. NEURO: No focal deficits. PSYCH: Appropriate affect and insight. Results & Data Vital Signs (Past 12 Hours) Vital Signs Temp Pulse Pulse Resp BP Pulse Ox O2 Del Method 03/04/24 07:33 36.6 C 52 L 18 98/60 L 96 Nasal Cannula 03/04/24 07:25 Nasal Cannula 03/04/24 02:49 36.9 C 56 L 18 92/54 L 94 Nasal Cannula 03/03/24 22:45 36.4 C L 56 L 18 97/57 L 98 Nasal Cannula 03/03/24 21:58 62 O2 Flow Rate 03/04/24 07:33 1 03/04/24 07:25 03/04/24 02:49 2 03/03/24 22:45 2 03/03/24 21:58 Laboratory Results Laboratory Results - last 24 hr 03/04/24 08:35 WBC Pending RBC Pending Hgb Pending Hct Pending MCV Pending MCH Pending MCHC Pending Plt Count Pending PT Pending INR Pending Sodium Pending Potassium Pending Chloride Pending Carbon Dioxide Pending Anion Gap Pending BUN Pending Creatinine Pending Est Cr Clr Drug Dosing Pending eGFR Pending BUN/Creatinine Ratio Pending Glucose Pending Calcium Pending Phosphorus Pending Magnesium Pending
[2024-03-04 09:32] LABS: Hematocrit (blood only) 38.4 % (37.0-47.0); Hemoglobin 11.8 g/dl (12.0-16.0); Mean Corpuscular Hemoglobin 30.3 pg (25.0-34.0); Mean Corpuscular Hgb Conc 30.7 g/dL (32.0-36.0); Mean Corpuscular Volume 98.5 fL (80.0-100.0); Mean Platelet Volume 10.4 fL (9.4-12.4); Platelet Count 228 K/uL (130-400); RDW Coefficient of Variation 15.2 % (11.5-14.5); RDW Standard Deviation 54.4 fL (36.4-46.3); White Blood Count 6.69 K/ul (4.8-10.8)
[2024-03-04 09:46] LABS: BUN Creatinine Ratio 37.5 (10-20); Calcium 9.1 mg/dl (8.6-10.3); Creatinine Clr Calc Pharmacy 36.4 ml/min; Magnesium 2.3 mg/dl (1.7-2.4); Phosphorus 4.1 mg/dl (2.5-4.9); Potassium 4.1 mmol/L (3.5-5.1)
[2024-03-04 09:53] LABS: INR 1.3 (0.9-1.1); Prothrombin Time 13.9 Seconds (9.0-12.0)
[2024-03-04 11:29] VITALS: RESP 16; TEMP 97.7
--- NOTE | 2024-03-04 11:31 | Discharge Summary ---
Date of Service March 04, 2024 Admission HPI Per Admitting Provider This is a 78-year-old female who has significant past medical history of PAF anticoagulated with warfarin, chronic HFpEF, HLD, HTN, mitral insufficiency, COPD, chronic tobacco use, GERD, chronic back pain who presents to ED secondary to worsening lower extremity swelling. She reports over the last 2 to 3 weeks having increased lower extremity swelling. She reports being compliant with her Lasix. She states her PCP recently increased her Lasix to 40 mg twice daily without any relief. She is up approximately 10 pounds. She denies any dietary indiscretions. She does have occasional NUNN. She denies any fever, chills, sweats, lightheadedness, dizziness, chest pain, orthopnea, hemoptysis, nausea, vomiting, abdominal pain, change in bowel or urinary habits. She has some drainage coming out of her right lower extremity. Of significance patient follows with [facility] cardiology. She did undergo a nuclear stress test on November 09, 2022 which was equivocal with symptoms of chest discomfort observed after administration of Lexiscan and equivocal EKG changes. At this time patient opted for medical management. Her last echocardiogram was done in April 2023 which revealed LVEF 60 to 65%, left atrium moderately dilated, moderate to severe early systolic mitral regurgitation, mild tricuspid regurg, mild pulmonary hypertension. In ED patient was hemodynamically stable. Her CBC and CMP was generally unremarkable. She did have an elevated BNP at 765. She reports being on warfarin but her INR was 1.0. She reports smoking 0.5ppd. She denies significant alcohol or elicit drug use. She lives with her and uses a rollator for ambulation. She feels it has been more difficult to walk due to the increased swelling. Admission Exam Per Admitting Provider Constitutional: WD/WN, vitals as above, NAD, sitting up in bed, pleasant, conversing easily Head: Normocephalic, Atraumatic Eyes: PERRL, conjunctivae normal, anicteric sclerae ENMT: external ear and nose normal, oropharynx normal Neck: trachea midline, no thyromegaly normal visual inspection Respiratory: normal respiratory effort, lungs clear to auscultation, no wheeze, rales, rhonchi. Normal insp/exp effort, no accessory muscle use Cardiovascular: RRR, no murmur, no edema Vessels: no JVD or carotid bruit Chest: normal inspection of chest Abdomen: normal bowel sounds, soft, nontender, no hepatosplenomegaly Musculoskeletal: no cyanosis or clubbing, extremities motor strength 5/5 Skin: no rashes, warm and dry normal turgor Neurologic: PERRL, EOMI, accommodation nl, no face palsy, no dysarthria CN's II-XI intact bilaterally and moves all extremities Psychiatric: A+Ox3, euthymic affect Principal Diagnosis Acute on Chronic HFpEF LE edema b/l Discharge Exam Constitutional: thin/ cachetic , chronically ill appearing F in NAD, on suppl. O2 Head: Normocephalic, Atraumatic Eyes: PERRL, conjunctivae normal, anicteric sclerae ENMT: external ear and nose normal, oropharynx normal Neck: normal visual inspection Respiratory: normal respiratory effort, breath sounds decreased at bases, no wheezing Cardiovascular: RRR, no murmur, no edema Chest: normal inspection of chest Abdomen: normal bowel sounds, soft, nontender Musculoskeletal: + trace LE edema (much improved), moves extremities Skin: no rashes, warm, dry Neurologic: PERRL, EOMI, no face palsy, no dysarthria, moves all extremities Psychiatric: A+Ox3, euthymic affect Discharge Data Allergies Allergy/AdvReac Type Severity Reaction Status Date / Time chlorhexidine Allergy Intermediate Rash Verified 09/16/23 11:29 hydrochlorothiazide AdvReac Severe Pancreatiti Verified 09/16/23 11:29 s fluconazole [From Diflucan] AdvReac Intermediate Diarrhea Verified 09/16/23 11:29 (with oral) ondansetron [From Zofran] AdvReac Intermediate Headaches Verified 09/16/23 11:29 Consultations 03/01/24 13:07 ED Decision to Admit Stat 03/02/24 07:56 Consult Cardiology Routine Ordered Studies 03/01/24 13:52 US venous duplex leg [US venous doppler LE BI] Stat Hospital Course (1) Acute on chronic heart failure with preserved ejection fraction (HFpEF): (2) CAD (coronary artery disease): (3) Paroxysmal atrial fibrillation: (4) COPD (chronic obstructive pulmonary disease): Plan This is a 78-year-old female who has significant past medical history of PAF anticoagulated with warfarin, chronic HFpEF, HLD, HTN, mitral insufficiency, COPD, chronic tobacco use, GERD, chronic back pain who presents to ED secondary to worsening lower extremity swelling. Acute on Chronic HFpEF CAD admitted to med tele pt with 10 lbs weight gain and increased lower ext edema over last 2-3 weeks Pt lasix increased to 40mg BID orally w/o improvement obtained b/l venous Doppler - negat. for DVT, no active cellulitis, consult wound care BNP elevated last echo 05/01 which revealed LVEF 60 to 65%, left atrium moderately dilated, moderate to severe early systolic mitral regurgitation, mild tricuspid regurg, mild pulmonary hypertension. IV Lasix 40mg BID, strict I and O, daily weight continue aldactone, metoprolol, imdur, ASA, statin supplement K, follow bmp Cardiology consulted - repeated echo, IV lasix -> torsemide 10 mg daily , metoprolol succinate dose increased to 25 bid Urged use of oxygen at home, tobacco cessation PAF NSR on ECG INR 1.0, pt reports taking medication but I question compliance Lovenox BID and warfarin until INR > 2 COPD Chronic tobacco abuse encourage cessation, no acute exacerbation Chronic Back pain Presence of intrathecal pain pump continue home prn meds Ambulatory dysfunction 2/2 above PT/OT DVT ppx: SQ Lovenox/Warfarin, D/C Lovenox when INR > 2 DNR/DNI PCP: Dr. 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 Take torsemide 10 mg daily. Take metoprolol succinate 25 mg twice a day. Continue taking spironolactone as prescribed - 12.5 mg M W F . Monitor your weight and any edema daily. Monitor your INR level, your warfarin dose will need to be adjusted accordingly. If INR <2 continue using lovenox. It is crucial that you use your oxygen and quit smoking. Addtl Vessel Operator Provider Instructions: Call your Primary Care doctor if any of the following symptoms or problems start or get worse: * Shortness of breath or difficulty breathing * Wake up at night short of breath * Chest pain * Cough * Swelling of your hands, feet, or legs * More fatigued or tired with your normal activity * Palpitations - sudden fast heart beats WEIGHT * Weigh yourself every morning after using the bathroom. * Use the same scale. * Wear the same amount of clothing. * Write your weight down on a chart. * Call your Primary Care doctor if you gain more than 2-3 pounds in 1-2 days. MEDICATIONS * Use this discharge instruction sheet for medication instructions. * Take your medications at the time your doctor ordered. * Do not skip a dose of your medicines. * If you miss a dose of medicine, take it as soon as possible, but DO NOT DOUBLE A DOSE. * Read your medicine information when you get home. * Know all of the side effects of your medicine. If in doubt, ask your pharmacist * Call your Primary Care doctor's office if you have any side effects. * Be sure all of your doctors know what medicine and herbs you take (including cold, flu, and herbal medicine). Take the following with you to your follow-up doctor appointments: * Weight Chart * Medication List * List of questions Do not drink excessive alcohol, beer or wine. Pending Studies at Discharge: No Stand-Alone Forms: My [facility] Skilled Items Patient informed of condition?: Yes DNR: Yes Discharge Level of Care: Acute rehab Communicable Disease: No Discharge Prognosis: Stable Lines: None Urinary Catheter: No Medications and DC Order Prescriptions: New enoxaparin 60 mg/0.6 mL Syringe 50 mg subcut Q12H 3 Days Qty: 3 0RF metoprolol succinate 25 mg Tablet Extended Release 24 Hr 25 mg PO BID Qty: 60 0RF spironolactone 25 mg Tablet 12.5 mg PO MoWeFr@0900 Qty: 30 0RF torsemide 10 mg Tablet 10 mg PO QAM Qty: 30 0RF Continued omeprazole 20 mg capsule,delayed release(DR/EC) 20 mg PO DAILY promethazine 12.5 mg tablet 12.5 mg PO Q6H PRN (Reason: Nausea) buspirone 5 mg tablet 5 mg PO BID nitroglycerin 0.4 mg/hr patch 24 hour 1 patch topical DAILY naloxone 4 mg/actuation spray,non-aerosol 1 spray intranasal Q3M PRN (Reason: opioid overdose) Qty: 2 0RF Rx Instructions: administer 1 dose into ONE nostril; alternate nostrils w each dose until assistance arrives multivitamin Tablet 1 tab PO QAM trazodone 100 mg Tablet 200 mg PO HS rizatriptan 10 mg Tablet 10 mg PO UD PRN (Reason: Migraine Headache) Rx Instructions: take 1 tab at onset of headache; if no relief may repeat 1 tab after at least 2 hrs; max = 3 tabs/24 hr atorvastatin 10 mg Tablet 10 mg PO QAM Qty: 30 0RF [id number] 50-325-40 mg Tablet 1 tab PO TID PRN (Reason: Migraine Headache) calcium carbonate-vitamin D3 [Calcium 600 + D(3)] 600 mg-10 mcg (400 unit) Tablet 1 tab PO DAILY Hydromorphone Pain Pump 0 mg INJ DIRECTED hydrocodone-acetaminophen 5-325 mg tablet 1 - 2 tab PO Q4H MDD 4 GRAMS APAP/24 HOURS warfarin 5 mg tablet 5 mg PO DAILY@1600 isosorbide mononitrate 30 mg Tablet Extended Release 24 Hr 30 mg PO QAM Qty: 30 0RF Rx Instructions: 30 mg po daily pt says she still takes medication, last filled in Jun. nitroglycerin 0.4 mg tablet, sublingual 0.4 mg sublingual Q5M PRN (Reason: chest pain) Qty: 30 0RF Rx Instructions: max 3 tabs, if pain persists seek immediate medical attention aspirin 81 mg tablet,chewable 81 mg PO DAILY Discontinued metoprolol succinate 25 mg tablet extended release 24 hr 25 mg PO UD Rx Instructions: 25 mg po qam pt says she still takes medication. Last filled 10/12 furosemide [Lasix] 40 mg tablet 40 mg PO UD Rx Instructions: original: 40 mg po daily per pt she takes 40 mg po bid 5 days a week spironolactone 25 mg tablet 12.5 mg PO UD Rx Instructions: Wednesday, Wednesday, Wednesday- half tab per pt last filled 10/12 Discharge Orders: Discharge Order- CHF (Routine); Ordered 03/04/24 Ordered By: Nba Malagon Admission Data Admit Date/Time: 03/01/24 13:25 Attending Provider: Nba Malagon Admit Provider: Crow Phipps Primary Care Provider: Casey Rodgers Other Providers: Crow Phipps; Sterling Lockhart; [facility]
[2024-03-04 11:55] VITALS: BP 98/60; PULSE 95
== END 2024-03-04 13:49 | DRG 291 ==
LOC: ED 10:48 → EDINP 13:25 → SUATTDRO 13:25 → 2N 15:45